=== PATIENT | female | born 1940 | race Caucasian/White ===

== ENCOUNTER → 2022-06-05 | Outpatient (CLI) | payer MEDICARE, SELFPAY ==
--- NOTE | 2022-06-05 16:28 | MRI_ITS ---
STUDY: MRI ORBITS WITH AND WITHOUT CONTRAST REASON FOR EXAM: Female, 82 years old patient with LEFT-sided optic atrophy. History of kidney cancer. TECHNIQUE: Standardized fat and water weighted pulse sequences were obtained in all 3 orthogonal planes, pre-and post contrast administration. 10 ml of IV Clariscan was administered for the contrast portion of the examination. COMPARISON: None. FINDINGS: Patient has bilateral ocular lenticular implants. Globes otherwise have a normal appearance. Normal bilateral optic nerve sheath complexes and optic nerves. Normal bilateral intraconal and extraconal spaces. Normal bilateral extraocular muscles. Normal optic chiasm and post-chiasmatic tracts. Normal sella turcica, pituitary gland, infundibular stalk, and hypothalamus. Normal bilateral cavernous sinuses. Normal tectal plate and pineal gland. Normal flow voids within the major intracranial circulation suggesting patency by spin echo criteria. Normal size of the ventricles and extra-axial spaces for the patient''s age. There are multiple foci of abnormal T2 hyperintensity throughout the deep and subcortical white matter. There is also confluent abnormal T2 hyperintensity within periventricular white matter. There are small areas of encephalomalacia within the basal ganglia are probably secondary to old infarcts. Normal thalami. There is no extra-axial fluid accumulation. There is abnormal T2 hyperintensity within the angus probably secondary to microvascular disease. Normal cerebellum. Normal basal cisterns. There is no restricted diffusion. There is mild mucosal thickening within the paranasal sinuses. MRI/Orbit Face Neck W/WO Contrast IMPRESSION: 1. Moderately severe abnormal signal throughout the white matter may be secondary to advanced microvascular disease or sequela of demyelination. 2. Generally normal MR appearance of the orbits. 3. No MR evidence for acute infarct. Electronically Signed: Lorin Cornelius MD at 6:10 EST ,
[2022-06-05 17:01] LABS: CREATININE FINGERSTICK < 0.9 mg/dL (0.55-1.02); EGFR FINGERSTICK > 60.0000 mL/min (>60)
== END | disposition home or self-care (01) ==
PROVIDERS: Visit Provider Ophthalmology
DX: H47.212 Primary optic atrophy, left eye (principal); Z85.528 Personal history of other malignant neoplasm of kidney
CPT/HCPCS: 70543; A9575

== ENCOUNTER 2022-12-26 23:48 | Emergency (ER) | payer MEDICARE, SELFPAY ==
[2022-12-26 23:51] VITALS: BP 152/72; PULSE 78; RESP 16; TEMP 36.1; O2SAT 100; BMI 34.4
--- NOTE | 2022-12-27 00:11 | CT_ITS ---
EXAM: CT Abdomen And Pelvis W/O Contrast Injection HISTORY: Pain LEFT FLANK PAIN TONIGHT, HX RIGHT NEPHRECTOMY DUE TO CA A FEW YEARS AGO TECHNIQUE: Routine protocol CT abdomen and pelvis. IV Contrast: None.. Oral contrast: None. RADIATION DOSAGE (If Supplied By Facility): CTDIvol = ( 9.73 ) mGy, DLP = ( 464.16 ) mGycm Individualized dose optimization techniques were used for this CT. COMPARISON: None. LIMITATIONS: None. FINDINGS: LOWER CHEST: Included lung bases are clear. Calcified granuloma right normal. Coronary artery calcifications. LIVER: Grossly unremarkable. GALLBLADDER AND BILIARY TREE: Gallstones in the gallbladder. PANCREAS: Grossly unremarkable. SPLEEN: Grossly unremarkable. ADRENAL GLANDS: Grossly unremarkable. KIDNEYS AND URETERS: Right kidney is surgically absent. No calculi demonstrated. No hydronephrosis. A few small probable parapelvic cysts left kidney. PERITONEUM: No free air. No free fluid. BOWEL: Diverticula throughout the colon. Duodenal diverticulum. No associated inflammatory changes. No bowel obstruction. APPENDIX: Visualized and unremarkable. No evidence of acute appendicitis. VESSELS: Abdominal aorta is normal caliber. REPRODUCTIVE ORGANS: Uterus not identified. There is a 4.0 x 3.7 cm cystic structure in the left adnexa, and a 3.8 x 3.7 cm cystic structure in the right adnexa, likely related to the ovaries. URINARY BLADDER: Minimally distended. ABDOMINAL WALL: Unremarkable. BONES: No acute abnormalities. CT/Abdomen/Pelvis without Cont IMPRESSION: No acute findings. Right nephrectomy. Left kidney with a few probable parapelvic cysts. Given the history of prior right renal malignancy and no prior studies consider follow-up imaging with MRI for further characterization. Cholelithiasis. Colonic diverticulosis without evidence of acute diverticulitis. Bilateral ovarian cystic structures, approximately 4 cm. Follow-up pelvic ultrasound as clinically indicated. Electronically Signed: Judy Mcginnis MD at 1:20 EDT ,
--- NOTE | 2022-12-27 00:13 | ED.VIS.GI ---
HPI HPI - GI History of Present Illness Chief Complaint: Nausea/Vomiting/Diarrhea Detail of Chief Complaint: Left flank pain. Informant: patient Abdominal Pain/Flank Pain Onset: Days Context: Gradual Onset Timing: Continuous Location: Left Flank Current Severity: Mild Maximum Severity: Moderate Worsened by: Nothing Relieved by: Nothing Nausea/Vomiting/Emesis GI Symptom: Positive for Nausea and Vomiting Onset: Days Severity: Mild Associated Symptoms Associated Symptoms: Positive for Frequency; Negative for Dysuria or Hematuria Narrative Narrative: 82-year-old female complaining of left flank pain started around Saturday. She thought it was secondary to muscle spasm which she has had in the past. She has been using a muscle relaxant any relief. Says she is having urinary frequency but no gross hematuria or dysuria. She has developed nausea and vomiting without fever. She has had a kidney stone in the past. Also the patient has had prior right renal cancer and has had her right kidney removed and a prior hysterectomy. She still has her left kidney. Prior similar symptoms: Yes Recent Illness/Hospitalization: No PFSH PFSH Medical History Cancer of kidney Hyperlipemia Hypertension Home Medications chlorzoxazone 500 mg tablet 500 mg PO TID 12/26/22 [History Last Taken Unknown] metaxalone 800 mg tablet 800 mg PO TID PRN muscle pain 7 days #20 tabs 12/27/22 [Rx Last Taken Unknown] metoprolol succinate 25 mg tablet,extended release 24 hr 25 mg PO DAILY 12/27/22 [History Last Taken Unknown] montelukast 10 mg tablet 10 mg PO QHS 12/27/22 [History Last Taken Unknown] paroxetine HCl 40 mg tablet 40 mg PO DAILY 12/27/22 [History Last Taken Unknown] pravastatin 40 mg tablet 40 mg PO DAILY 12/27/22 [History Last Taken Unknown] Allergy/AdvReac Type Severity Reaction Status Date / Time Latex, Natural Rubber Allergy Intermediate Rash Verified 12/26/22 23:54 Surgical History H/O right nephrectomy H/O: hysterectomy Social History Smoking Status: Never smoker ROS ROS ED ROS Narrative Left flank pain. Nausea. Review of Systems ROS Unobtainable: Denies due to encephalopathy Constitutional Constitutional ED: Denies chills or fever(s) ENT ENT ED: Denies ear pain Cardiovascular Cardiovascular: Denies chest pain Respiratory/Chest Respiratory/Chest: Denies cough or dyspnea Gastrointestinal Gastrointestinal: Reports abdominal pain, nausea and vomiting Genitourinary Genitourinary ED: Denies dysuria or hematuria Musculoskeletal Musculoskeletal: Reports back pain; Denies arthralgias Integumentary Denies abscess or Abrasions Neurologic Neurologic: Denies headache(s) Psychiatric Psychiatric: Denies anxiety or depression Endocrine Endocrinology: Denies polydipsia Hematologic/Lymphatic Hematologic/Lymphatic: Denies easy bleeding or easy bruising Allergic/Immunologic Allergic/Immunologic ED: Denies mouth swelling or tongue swelling EXAM Physical Exam Narrative Exam Narrative: Well-appearing 82-year-old female. Vital signs stable afebrile. H EENT exam unremarkable other than mildly dry mucous membranes. Neck nontender no lymphadenopathy. Lungs clear to auscultation bilaterally. Heart regular rhythm rate about 80 no murmur. Chest wall and ribs nontender. Abdomen soft nontender. Nondistended normal bowel sounds no peritoneal signs. Back mild left CVA and paraspinal soft tissue tenderness. No signs of trauma. Spine nontender. Moving all 4 extremities. Neurovascular intact. Normal strength and sensation. No motor loss. No weakness. She is awake and alert. Const Vital Signs: 12/26/22 23:51 Temperature 96.9 F L Temperature Source Temporal Pulse Rate 78 Respiratory Rate 16 Blood Pressure 152/72 H Blood Pressure Mean 98 Pulse Ox 100 Oxygen Delivery Method Room Air Positive well nourished and well developed; Negative for cachectic, contractures or unkempt General Appearance ED: well developed and NAD; Negative for unkempt, cachectic, contractures or pallor Nutritional Appearance: Negative for cachectic HEENT Reports dry mucous membranes; Denies moist mucous membranes normocephalic and atraumatic; Negative for trauma or tenderness Mouth ED: Yes dry mucous membranes Mouth: dry mucous membranes Eyes PERRL and EOMs intact bilaterally General Eye ED: Negative for pale conjunctiva or scleral icterus Neck no lymphadenopathy, supple and no JVD General: Negative for tenderness Carotids: Negative for other Resp normal respiratory effort and clear to auscultation bilaterally Effort and Inspection: Negative for respiratory distress Auscultation: Negative for rales, rhonchi or wheezes Cardio regular rate, regular rhythm, S1 normal heart sound, S2 normal heart sound and no murmurs Rate: Negative for bradycardia or tachycardic Rhythm: Negative for abnormal rhythm GI non-tender and non-distended Inspection: Negative for abdominal distention Auscultation: normoactive bowel sounds Palpation: soft; Negative for tender or guarding Back/Spine Negative for no CVA tenderness Back/Spine Narrative: Left flank tenderness. Left paraspinal muscle tenderness. General Back: Negative for CVA tenderness Cervical Spine: Negative for cervical spine tenderness Thoracic Spine / Upper Back: Negative for thoracic spinal tenderness Lumbar Spine / Lower Back: Negative for lumbar spinal tenderness Coccyx: Negative for other Extremity full ROM General Extremety ED: Negative for edema or tenderness General Extremity: Negative for edema Neuro CN's II-XII intact bilaterally and moves all extremities Sensorium / Orientation: alert, oriented to person, oriented to place and oriented to time; Negative for orientation impaired, confused, lethargic or stuporous Psych mental status grossly normal and thought process normal Appearance: Negative for unkempt or other Attitude: No agitated Mood & Affect: Negative for depressed, anxious or tearful Skin no wounds General Skin Exam: Negative for jaundice or pallor Lesions: no lesions Rashes: no rashes Trauma: Negative for abrasion Nails: Negative for discolored MDM MDM MDM Narrative Medical decision making narrative: 82-year-old female with left flank pain for several days could be muscle spasms versus kidney stone or urinary tract infection versus other etiologies. CAT scan along with screening labs to be obtained. Treated with IV morphine and Zofran. IV fluids for what appears to be mild dehydration. Repeat exam at 1:45 AM patient is doing better. She received morphine and Zofran. We discussed her test results Labs and urine were unremarkable. CAT scan showed most likely renal and pelvic cysts which I discussed with her follow-up due to her history of right renal cancer. The pain is definitely reproducible on the left paraspinal musculature. She has had a history of muscle spasms. Discussed all test results with the patient and her brother is in the room. She will be referred to a local primary care physician because she does not have a local physician she recently moved from [facility]. She will be discharged to home with a prescription for Skelaxin. Given 1 dose here. She will be given a second dose of morphine prior to discharge. I suspect this is secondary to muscle spasms in her back. History & Record Review Discussion w/independent historian: Patient and Family Additional record(s) reviewed:: Prior inpatient record, Prior outpatient record, Prior ED visit and Prior labs Lab Data Attestation: I reviewed the patient's lab results. Lab results narrative: CBC unremarkable. White count 6.4. H&H 14.9 and 45. Platelets 237. Electrolytes show a gap of 3. BUN and creatinine at 22 and 0.9. Glucose of 110. Urinalysis shows no nitrates. No white or red cells. 2+ bacteria. CAT scan without contrast shows no acute findings. Suspected left renal cyst and pelvic cysts. Be discussed with the patient for follow-up. Labs: Laboratory Results - last 24 hr 12/27/22 12/27/22 00:28 01:00 WBC 6.4 RBC 4.87 Hgb 14.9 Hct 45.4 MCV 93.2 MCH 30.6 MCHC 32.8 RDW Std Deviation 43.1 RDW Coeff of Valerie 12.5 Plt Count 237 MPV 10.1 Immature Gran % (Auto) 0.200 Neut % (Auto) 61.4 Lymph % (Auto) 24.7 [place] % (Auto) 8.8 Eos % (Auto) 4.7 Baso % (Auto) 0.2 Absolute Neuts (auto) 3.9 Absolute Lymphs (auto) 1.57 Nucleated RBC % 0 Sodium 140 Potassium 3.8 Chloride 109 H Carbon Dioxide 28.0 Anion Gap 3 L BUN 22 H Creatinine 0.96 Estim Creat Clear Calc 43.03 Est GFR (MDRD) Af Amer 72 Est GFR (MDRD) Non-Af 59 L BUN/Creatinine Ratio 22.9 H Glucose 110 H Calcium 9.9 Urine Color Yellow Urine Clarity Clear Urine pH 6.0 Ur Specific [place] 1.020 Urine Protein Negative Urine Glucose (UA) Normal Urine Ketones 5 H Urine Occult Blood 25 H Urine Nitrite Negative Urine Bilirubin 1 H Urine Urobilinogen 1 H Ur Leukocyte Esterase 500 H Urine RBC 0-5 SEEN Urine WBC 0-5 SEEN Ur Squamous Epith Cells 0-5 SEEN Urine Bacteria 2+ Urine Mucus 0 SEEN Radiography Diagnostic Testing: Clinical Impression(s) from Imaging Studies Abdomen/Pelvis CT 12/27/22 00:11 IMPRESSION: No acute findings. Right nephrectomy. Left kidney with a few probable parapelvic cysts. Given the history of prior right renal malignancy and no prior studies consider follow-up imaging with MRI for further characterization. Cholelithiasis. Colonic diverticulosis without evidence of acute diverticulitis. Bilateral ovarian cystic structures, approximately 4 cm. Follow-up pelvic ultrasound as clinically indicated. Electronically Signed: Judy Mcginnis MD at 1:20 EDT , Discharge Plan Triage Chief Complaint: Nausea/Vomiting/Diarrhea ED Provider: Eligio Robledo Dx/Rx/DC Orders Clinical Impression: Acute left flank pain, History of primary malignant neoplasm of right kidney, Back muscle spasm Instructions: ED Back Spasm, No Trauma Prescriptions: New metaxalone 800 mg tablet 800 mg PO TID PRN (Reason: muscle pain) 7 Days Qty: 20 0RF No Action chlorzoxazone 500 mg tablet 500 mg PO TID Patient Comments: TAKE 1 TABLET (500 MG) BY MOUTH 3 TIMES A DAY NEEDED FOR MUSCLE SPASMS metoprolol succinate 25 mg tablet extended release 24 hr 25 mg PO DAILY paroxetine HCl 40 mg tablet 40 mg PO DAILY montelukast 10 mg tablet 10 mg PO QHS pravastatin 40 mg tablet 40 mg PO DAILY Primary Care Provider: Care Physician,No Primary Referrals: Subhash Phan MD [Med Staff - Rug Inspector] - As soon as possible Care Physician,No Primary [Primary Care Provider] - Activity Restrictions/Additional Instructions: Motrin and Tylenol for pain. Hot shower, warm bath and massage to loosen up the muscles in your back. I think this is secondary to muscle spasms in your back. Skelaxin which is a muscle relaxant 1 pill 3 times a day for the next 7 days as needed. It will take several days to start showing a significant difference. Follow-up with a local primary care physician. Disposition Disposition: Home, Self Care
[2022-12-27] MEDS: Ondansetron 4 MG/2 ML Vial IV (00:19)
[2022-12-27] MEDS: 0.9% Normal Saline (1000mL) 1,000 ML 1000 ML IV (00:19)
[2022-12-27] MEDS: Morphine 4 MG/ML Syringe IV (00:20)
[2022-12-27 00:31] LABS: Absolute Lymphocyte Count 1.57 X10^3/uL (0.83-4.51); Absolute Neutrophil Count 3.9 X10^3/uL (2.0-7.7); Basophil# 0.01 X10^3/uL; Basophil% 0.2 % (0-1); Eosinophils% 4.7 % (0-5); Hematocrit 45.4 % (37-47); Hemoglobin 14.9 g/dL (12.0-15.0); Lymphocyte # 1.57 X10^3/ul (0.83-4.51); Lymphocyte % 24.7 % (19-41); Mean Corp Hgb Conc 32.8 g/dL (32-36); Mean Corpuscular Hgb 30.6 pg (27.0-32.0); Mean Corpuscular Volume 93.2 fL (81-99); Mean Platelet Vol. 10.1 fl (6.2-12.0); Monocyte# 0.56 X10^3/uL; Monocyte% 8.8 % (0-10); NRBC Flagged by Analyzer 0 % (0-5); Neutrophil # 3.91 X10^3/uL (2.7-7.7); Neutrophil % 61.4 % (47-70); Platelet Count 237 K/mm3 (150-450); RBC Distribution Width CV 12.5 % (11.6-14.6); RBC Distribution Width SD 43.1 fl (35.1-43.9); Red Blood Count 4.87 M/mm3 (4.2-5.4); White Blood Count 6.4 K/mm3 (4.4-11.0)
[2022-12-27 00:44] LABS: Anion Gap 3 (5-15); BUN 22 mg/dL (7-18); BUN/Creat Ratio 22.9 RATIO (10-20); Calcium,Total 9.9 mg/dL (8.5-10.1); Chloride 109 mmol/L (98-107); Creatinine, Serum 0.96 mg/dL (0.55-1.02); EST Glomerular Filtration Rate 59 mL/min (>60); Est Glom Filt Rate - Afr Amer 72 mL/min (>60); Estimated Creatinine Clearance 43.03 ml/min; Glucose 110 mg/dL (74-106); Potassium 3.8 mmol/L (3.5-5.1); Sodium Level 140 mmol/L (136-145)
[2022-12-27 01:05] LABS: Mucous, Urine 0 SEEN /hpf (<or=2+)
[2022-12-27 01:06] LABS: Color, Urine Yellow (Yellow); Glucose, Dipstick Normal (Normal); Ketone-Dipstick 5 mg/dl (Negative); Leukocyte Esterase-Dipstick 500 /ul (Negative); Nitrite-Dipstick Negative (Negative); Occult Blood-Urine 25 /ul (Negative); Protein-Dipstick Negative (Negative); Urine Bilirubin Dipstick 1 mg/dL (Negative); Urine Clarity Clear (Clear); Urine Urobilinogen 1 mg/dl (Normal)
[2022-12-27 01:11] LABS: Bacteria 2+ /hpf (None Seen); Red Blood Cells-Urine 0-5 SEEN /hpf (0-5); Squamous Epithelial Cells - UA 0-5 SEEN /hpf (5-10); White Blood Cells 0-5 SEEN /hpf (0-5)
[2022-12-27] MEDS: Acetaminophen 500 MG Tablet 1000 MG PO (01:23)
[2022-12-27] MEDS: Metaxalone 800 MG Tablet PO (02:14)
== END 2022-12-27 02:18 | disposition home or self-care (01) ==
PROVIDERS: Emergency Provider Emergency Medicine; Visit Provider Emergency Medicine
DX: R10.9 Unspecified abdominal pain (principal); M62.830 Muscle spasm of back; E78.5 Hyperlipidemia, unspecified; I10 Essential (primary) hypertension; Z79.899 Other long term (current) drug therapy
CPT/HCPCS: 74176; 80048; 81001; 85025; 96361; 96374; 96375; 99284; J7030; A4216; J2405

== ENCOUNTER 2023-02-09 04:20 | Emergency (ER) | payer MEDICARE, SELFPAY ==
[2023-02-09 04:21] VITALS: BP 105/80; PULSE 95; RESP 16; TEMP 36.6; O2SAT 98; BMI 31.8
--- NOTE | 2023-02-09 04:37 | CT_ITS ---
EXAM: CT ABDOMEN AND PELVIS WITHOUT INTRAVENOUS CONTRAST CLINICAL INDICATION: back pain TECHNIQUE: Helically acquired images were obtained of the abdomen and pelvis without intravenous contrast. This CT exam was performed using one or more of the following dose reduction techniques: automated exposure control, adjustment of the mA and/or kV according to patient size, and/or use of iterative reconstruction technique. RADIATION DOSE: CTDIvol = 7.68 mGy, DLP = 362.83 mGy-cm COMPARISON: 12/27/2022. FINDINGS: LOWER THORAX: Coronary artery calcifications. Lung bases are clear. No cardiomegaly. No significant pericardial effusion. ABDOMEN: LIVER: Unremarkable. Homogeneous. GALLBLADDER AND BILE DUCTS: Cholelithiasis. No gallbladder distention or wall edema. No intra- or extrahepatic biliary ductal dilation. PANCREAS: Unremarkable. No focal cystic mass. SPLEEN: Unremarkable. Normal size without focal cystic or solid mass. ADRENALS: Unremarkable. No nodules. KIDNEYS AND URETERS: Right kidney is absent. Multiple parapelvic cysts left kidney. No hydronephrosis. STOMACH AND BOWEL: Scattered diverticula without diverticulitis. No stomach or bowel distention. PELVIS: APPENDIX: Normal appendix. BLADDER: Unremarkable. REPRODUCTIVE: Hysterectomy. Simple appearing cyst measuring 3.9 cm right adnexa unchanged since previous exam. Simple appearing cyst measuring 3.9 cm left adnexa unchanged since previous exam. ABDOMEN and PELVIS: INTRAPERITONEAL SPACE: Unremarkable. No ascites or other fluid collection. No free air. BONES/JOINTS: Unremarkable. No suspicious lytic or blastic abnormality. SOFT TISSUES: Unremarkable. No discrete abdominal or pelvic wall hernia. VASCULATURE: See above. LYMPH NODES: Unremarkable. No enlarged lymph nodes. CT/Abdomen/Pelvis without Cont IMPRESSION: 1. Coronary artery disease. 2. Cholelithiasis. 3. Hysterectomy. 4. Bilateral simple appearing cysts each measuring 3.9 cm unchanged as previous exam. No follow-up imaging necessary. 5. Scattered diverticula without diverticulitis. 6. No acute abdominal pelvic abnormality. 7. Multiple parapelvic cysts left kidney. No follow-up imaging necessary. Electronically Signed: Brayan Graves MD at 5:29 EDT ,
--- NOTE | 2023-02-09 04:39 | ED.VIS.BACK ---
HPI History of Present Illness Chief Complaint: Back Informant: patient Narrative Narrative: Patient presents with back pain for the past 2 days. She states it started gradually. She states she was decluttering her house, but she was not doing any heavy lifting but now she cannot lift because it hurts worse, as it does not move. She states that a week ago she was having some discomfort that got better but this will not get better with the same medications that she was taking which include CBD Gummies and muscle relaxers. A month ago she was here because of pain more on the left side. This is in the middle, and a little higher. She states she had an injury at work in 2007 where she fell over a conveyor belt and injured her back and had some chronic issues from it, but she states that this is unusual because it will not get better no matter what she does and she cannot sleep, she is urinating more frequently but without dysuria, denies any abdominal pain, other GI symptoms, and denies any chest discomfort or shortness of breath or other symptoms. No pain radiating elsewhere including the legs or perineum. No numbness or weakness. No other systemic symptoms. History is limited because the patient is sort of hysterical, has a flight of ideas and has to be redirected by the examiner multiple times and asked to repeat her statements because she is talking very fast. [facility] Medical History Cancer of kidney Hyperlipemia Hypertension Home Medications chlorzoxazone 500 mg tablet 500 mg PO TID 12/26/22 [History Last Taken Unknown] metoprolol succinate 25 mg tablet,extended release 24 hr 25 mg PO DAILY 12/27/22 [History Last Taken Unknown] montelukast 10 mg tablet 10 mg PO QHS 12/27/22 [History Last Taken Unknown] paroxetine HCl 40 mg tablet 40 mg PO DAILY 12/27/22 [History Last Taken Unknown] pravastatin 40 mg tablet 40 mg PO DAILY 12/27/22 [History Last Taken Unknown] tizanidine 2 mg tablet 2 mg PO Q8H PRN muscle spasticity #20 tabs 12/27/22 [Rx Last Taken Unknown] oxycodone-acetaminophen 5 mg-325 mg tablet 1 tab PO Q6H PRN PRN Pain 3 days #12 TABLETS 02/09/23 [Rx Last Taken Unknown] Allergy/AdvReac Type Severity Reaction Status Date / Time Latex, Natural Rubber Allergy Intermediate Rash Verified 02/09/23 04:21 Surgical History H/O right nephrectomy H/O: hysterectomy Social History Smoking Status: Never smoker ROS ROS ED Constitutional Constitutional ED: Denies chills or fever(s) Eyes Eyes: Denies change in vision or diplopia ENT ENT ED: Denies rhinorrhea or sore throat Cardiovascular Cardiovascular: Denies chest pain or palpitations Respiratory/Chest Respiratory/Chest: Denies cough or dyspnea Gastrointestinal Gastrointestinal: Denies abdominal pain, diarrhea, nausea or vomiting Genitourinary Genitourinary ED: Denies dysuria or hematuria Musculoskeletal Musculoskeletal: Reports back pain; Denies neck pain Integumentary Denies abscess or rash Neurologic Neurologic: Denies headache(s), paresthesias or weakness Psychiatric Psychiatric: Reports anxiety; Denies suicidal thoughts EXAM Physical Exam Const Vital Signs: 02/09/23 04:21 Temperature 97.9 F Temperature Source Temporal Pulse Rate 95 Respiratory Rate 16 Blood Pressure 105/80 Blood Pressure Mean 88 Pulse Ox 98 Oxygen Delivery Method Room Air Positive well nourished and well developed General Appearance ED: well developed and NAD HEENT Reports moist mucous membranes normocephalic and atraumatic Eyes PERRL and EOMs intact bilaterally Neck full ROM and supple Resp normal respiratory effort and clear to auscultation bilaterally Cardio regular rate, regular rhythm and no murmurs GI non-tender and non-distended GI Narrative: No [place] sign. No [place] sign. Auscultation: normoactive bowel sounds Palpation: soft; Negative for pulsatile mass Back/Spine no CVA tenderness and normal to inspection General Back: other FROM Lumbar Spine / Lower Back: paraspinal muscle tenderness bilateral (Upper lumbar/lower thoracic paraspinal musculature and midline, normal on inspection) and straight leg raise negative bilaterally Extremity normal to inspection General Extremety ED: Negative for edema, pulses abnormal or tenderness General Extremity: Negative for edema or pulses abnormal Neuro oriented x3, CN's II-XII intact bilaterally, no sensory deficits noted and gait normal Sensorium / Orientation: awake and alert Motor Exam: strength 5/5 throughout Deep Tendon Reflexes: Rt Patellar (L4): 2+, Lt Patellar (L4): 2+, Rt Ankle (S1): 2+ and Lt Ankle (S1): 2+ Deep Tendon Reflexes Back: Rt Patellar (L4): 2+, Lt Patellar (L4): 2+, Rt Ankle (S1): 2+ and Lt Ankle (S1): 2+ Plantar Reflex: Downgoing: bilateral Psych Psych Narrative: Anxious. Pressured speech. Skin no rashes or lesions noted and no wounds MDM MDM MDM Narrative Medical decision making narrative: I reviewed the patient's prior ED visit a month ago, she had a CT scan that showed some incidental findings but no obvious reason for her pain. I discussed that with her, but she states this is different, and given her age and history of kidney cancer in the past, and some abnormal findings on her left kidney which is the only one she has left, in addition to the differential which includes AAA, musculoskeletal etiologies which were thought to be more likely here given the history, compression fracture, recurrent cancer with metastases to bone, left kidney, or elsewhere, I thought it prudent to repeat her CT which she was amenable to in addition to labs, urinalysis given the possibility of a urine infection, and analgesics. All of this was normal. I reviewed the CT images as well as the report which I agree with. She does incidentally have gallstones. The abnormalities in her left kidney were doubled cysts and no follow-up needed. I reexamined her, she truly does not have right upper quadrant pain or tenderness, and the pain is on her back. She is very anxious and she says that her doctor prescribed her nerve pill because she is very high strung and anxious and she understands that. She does feel little better after the discomfort she seen walking to and from the bathroom without any difficulty, and the work-up here essentially rules out any dangerous etiologies. I assume this is musculoskeletal given the history and previous activity, does not appear to have a urinary infection acutely and I will prescribe her something for pain to use in the short-term and follow-up advised. She is comfortable with that plan. Lab Data Attestation: I reviewed the patient's lab results. Labs: Laboratory Results - last 24 hr 02/09/23 02/09/23 04:50 05:42 WBC 7.0 RBC 5.00 Hgb 15.3 H Hct 46.2 MCV 92.4 MCH 30.6 MCHC 33.1 RDW Std Deviation 42.7 RDW Coeff of Valerie 12.6 Plt Count 221 MPV 10.1 Immature Gran % (Auto) 0.300 Neut % (Auto) 59.7 Lymph % (Auto) 26.2 [place] % (Auto) 8.4 Eos % (Auto) 5.0 Baso % (Auto) 0.4 Absolute Neuts (auto) 4.2 Absolute Lymphs (auto) 1.84 Nucleated RBC % 0 Sodium 138 Potassium 3.8 Chloride 107 Carbon Dioxide 29.0 Anion Gap 2 L BUN 20 H Creatinine 0.97 Estim Creat Clear Calc 41.86 Est GFR (MDRD) Af Amer 71 Est GFR (MDRD) Non-Af 59 L BUN/Creatinine Ratio 20.7 H Glucose 105 Calcium 9.4 Total Bilirubin 0.40 AST 10 L ALT 22 Alkaline Phosphatase 95 Total Protein 7.1 Albumin 3.7 Globulin 3.4 Albumin/Globulin Ratio 1.1 Lipase 25 Urine Color Yellow Urine Clarity Clear Urine pH 6.0 Ur Specific [place] 1.025 Urine Protein 15 H Urine Glucose (UA) Normal Urine Ketones Negative Urine Occult Blood 10 H Urine Nitrite Negative Urine Bilirubin Negative Urine Urobilinogen 1 H Ur Leukocyte Esterase 100 H Urine RBC 0 SEEN Urine WBC 0-5 SEEN Ur Squamous Epith Cells 0-5 SEEN Urine Bacteria 0 SEEN Urine Mucus 0 SEEN Radiography Diagnostic Testing: Clinical Impression(s) from Imaging Studies Abdomen/Pelvis CT 02/09/23 04:37 IMPRESSION: 1. Coronary artery disease. 2. Cholelithiasis. 3. Hysterectomy. 4. Bilateral simple appearing cysts each measuring 3.9 cm unchanged as previous exam. No follow-up imaging necessary. 5. Scattered diverticula without diverticulitis. 6. No acute abdominal pelvic abnormality. 7. Multiple parapelvic cysts left kidney. No follow-up imaging necessary. Electronically Signed: Brayan Graves MD at 5:29 EDT , Discharge Plan Triage Chief Complaint: Back ED Provider: Mark Hodge Dx/Rx/DC Orders Clinical Impression: Acute lumbar myofascial strain Instructions: Understanding Lumbosacral Strain Prescriptions: New oxycodone-acetaminophen [oxycodone-acetaminophen] 5-325 mg tablet 1 tab PO Q6H PRN PRN (Reason: Pain) 3 Days Qty: 12 0RF No Action chlorzoxazone 500 mg tablet 500 mg PO TID Patient Comments: TAKE 1 TABLET (500 MG) BY MOUTH 3 TIMES A DAY NEEDED FOR MUSCLE SPASMS metoprolol succinate 25 mg tablet extended release 24 hr 25 mg PO DAILY paroxetine HCl 40 mg tablet 40 mg PO DAILY montelukast 10 mg tablet 10 mg PO QHS pravastatin 40 mg tablet 40 mg PO DAILY tizanidine 2 mg tablet 2 mg PO Q8H PRN (Reason: muscle spasticity) Qty: 20 0RF Primary Care Provider: Care Physician,No Primary Referrals: Doctor,Your [Non-Staff] - 3-5 Days if not improving Disposition Disposition: Home, Self Care
[2023-02-09] MEDS: 0.9% Normal Saline (1000mL) 1,000 ML 125 ML IV (04:50)
[2023-02-09] MEDS: Ondansetron 4 MG/2 ML Vial IV (04:50)
[2023-02-09] MEDS: Morphine 2 MG/ML Syringe IV (04:50)
[2023-02-09 04:55] LABS: Absolute Lymphocyte Count 1.84 X10^3/uL (0.83-4.51); Absolute Neutrophil Count 4.2 X10^3/uL (2.0-7.7); Basophil# 0.03 X10^3/uL; Basophil% 0.4 % (0-1); Eosinophil# 0.35 X10^3/uL; Hematocrit 46.2 % (37-47); Hemoglobin 15.3 g/dL (12.0-15.0); Lymphocyte # 1.84 X10^3/ul (0.83-4.51); Lymphocyte % 26.2 % (19-41); Mean Corp Hgb Conc 33.1 g/dL (32-36); Mean Corpuscular Hgb 30.6 pg (27.0-32.0); Mean Corpuscular Volume 92.4 fL (81-99); Mean Platelet Vol. 10.1 fl (6.2-12.0); Monocyte# 0.59 X10^3/uL; Monocyte% 8.4 % (0-10); NRBC Flagged by Analyzer 0 % (0-5); Neutrophil # 4.18 X10^3/uL (2.7-7.7); Neutrophil % 59.7 % (47-70); Platelet Count 221 K/mm3 (150-450); RBC Distribution Width CV 12.6 % (11.6-14.6); RBC Distribution Width SD 42.7 fl (35.1-43.9)
[2023-02-09 05:13] LABS: ALB/GLOB Ratio 1.1 RATIO (0.9-2.4); AST(SGOT) 10 U/L (15-37); Alanine Aminotransfer ALT/SGPT 22 U/L (13-56); Albumin, Serum 3.7 g/dL (3.2-5.0); Alkaline Phosphatase 95 U/L (45-117); Anion Gap 2 (5-15); BUN 20 mg/dL (7-18); BUN/Creat Ratio 20.7 RATIO (10-20); Calcium,Total 9.4 mg/dL (8.5-10.1); Chloride 107 mmol/L (98-107); Creatinine, Serum 0.97 mg/dL (0.55-1.02); EST Glomerular Filtration Rate 59 mL/min (>60); Est Glom Filt Rate - Afr Amer 71 mL/min (>60); Estimated Creatinine Clearance 41.86 ml/min; Globulin 3.4 g/dL (2.2-4.2); Glucose 105 mg/dL (74-106); Lipase 25 U/L (13-75); Potassium 3.8 mmol/L (3.5-5.1); Protein, Total 7.1 g/dL (6.4-8.2); Sodium Level 138 mmol/L (136-145)
[2023-02-09 05:47] LABS: Bacteria 0 SEEN /hpf (None Seen); Mucous, Urine 0 SEEN /hpf (<or=2+); Red Blood Cells-Urine 0 SEEN /hpf (0-5)
[2023-02-09 05:54] LABS: Color, Urine Yellow (Yellow); Glucose, Dipstick Normal (Normal); Ketone-Dipstick Negative (Negative); Leukocyte Esterase-Dipstick 100 /ul (Negative); Nitrite-Dipstick Negative (Negative); Occult Blood-Urine 10 /ul (Negative); Protein-Dipstick 15 mg/dl (Negative); Specific Gravity, Urine 1.025 (1.002-1.030); Urine Bilirubin Dipstick Negative (Negative); Urine Clarity Clear (Clear); Urine Urobilinogen 1 mg/dl (Normal)
[2023-02-09 06:01] LABS: Squamous Epithelial Cells - UA 0-5 SEEN /hpf (5-10); White Blood Cells 0-5 SEEN /hpf (0-5)
[2023-02-09 06:36] VITALS: BP 108/73; PULSE 72; RESP 16; O2SAT 98
== END 2023-02-09 06:54 | disposition home or self-care (01) ==
PROVIDERS: Emergency Provider Emergency Medicine; Visit Provider Emergency Medicine
DX: S39.012A Strain of muscle, fascia and tendon of lower back, initial encounter (principal); X58.XXXA Exposure to other specified factors, initial encounter
CPT/HCPCS: 74176; 80053; 81001; 83690; 85025; 96361; 96374; 96375; 99283; J7030; A4216; J2405

== ENCOUNTER 2023-07-31 19:54 | Emergency (ER) | payer MEDICARE, SELFPAY ==
[2023-07-31 19:55] VITALS: BP 136/88; PULSE 105; RESP 20; TEMP 36.1; O2SAT 96; BMI 26.3
[2023-07-31] MEDS: Ondansetron 4 MG/2 ML Vial IV (21:32)
[2023-07-31] MEDS: Morphine 4 MG/ML Syringe IV (21:32)
[2023-07-31] MEDS: 0.9% Normal Saline (1000mL) 1,000 ML 999 ML IV (21:32)
[2023-07-31 21:40] VITALS: BP 130/86; PULSE 87; RESP 18; TEMP 36.5; O2SAT 96
--- NOTE | 2023-07-31 21:40 | CT_ITS ---
INDICATION: Kidney Stone EXAMINATION: CT ABDOMEN AND PELVIS WITHOUT CONTRAST - CT Abdomen And Pelvis W/O Contrast Injection TECHNIQUE: Helically acquired images were obtained of the abdomen and pelvis without oral or IV contrast. A radiation dose optimization technique was used for this scan. IV Contrast dosage and agent: None. Oral contrast: None. RADIATION DOSAGE (If Supplied By Facility): CTDIvol = ( 11.71 ) mGy, DLP = ( 605.40 ) mGycm COMPARISON: CT Abdomen/PelvisOct 2022 5:00am FINDINGS: LOWER THORAX: Coronary artery calcifications. Lung bases are clear. No cardiomegaly. No significant pericardial effusion. ABDOMEN: LIVER: Unremarkable. Homogeneous. GALLBLADDER AND BILE DUCTS: Cholelithiasis. No gallbladder distention or wall edema. No intra- or extrahepatic biliary ductal dilation. PANCREAS: Unremarkable. No focal cystic mass. SPLEEN: Unremarkable. Normal size without focal cystic or solid mass. ADRENALS: Unremarkable. No nodules. KIDNEYS AND URETERS: Right kidney is absent. Multiple parapelvic cysts left kidney. No hydronephrosis. STOMACH AND BOWEL: Scattered diverticula without diverticulitis. No stomach or bowel distention. PELVIS: APPENDIX: Normal appendix. BLADDER: Unremarkable. REPRODUCTIVE: Hysterectomy. Simple appearing cyst measuring 3.9 cm right adnexa unchanged since previous exam. Simple appearing cyst measuring 3.9 cm left adnexa unchanged since previous exam. ABDOMEN and PELVIS: INTRAPERITONEAL SPACE: Unremarkable. No ascites or other fluid collection. No free air. BONES/JOINTS: Unremarkable. No suspicious lytic or blastic abnormality. SOFT TISSUES: Unremarkable. No discrete abdominal or pelvic wall hernia. VASCULATURE: See above. LYMPH NODES: Unremarkable. No enlarged lymph nodes. CT/Abdomen/Pelvis without Cont IMPRESSION: 1. Multiple parapelvic cysts left kidney. No no hydronephrosis. 2. Cholelithiasis. 3. Scattered diverticula without diverticulitis. 4. Bilateral simple appearing cysts each measuring 3.9 cm unchanged as previous exam. No follow-up imaging necessary. Electronically Signed: Krysta Solo MD at 23:26 EDT ,
[2023-07-31 21:49] LABS: Absolute Lymphocyte Count 1.59 X10^3/uL (0.83-4.51); Absolute Neutrophil Count 3.8 X10^3/uL (2.0-7.7); Basophil# 0.03 X10^3/uL; Basophil% 0.5 % (0-1); Eosinophils% 6.3 % (0-5); Hematocrit 45.8 % (37-47); Hemoglobin 14.8 g/dL (12.0-15.0); Lymphocyte # 1.59 X10^3/ul (0.83-4.51); Mean Corp Hgb Conc 32.3 g/dL (32-36); Mean Corpuscular Volume 92.7 fL (81-99); Mean Platelet Vol. 10.3 fl (6.2-12.0); Monocyte# 0.56 X10^3/uL; Monocyte% 8.8 % (0-10); NRBC Flagged by Analyzer 0 % (0-5); Neutrophil # 3.78 X10^3/uL (2.7-7.7); Neutrophil % 59.2 % (47-70); Platelet Count 225 K/mm3 (150-450); RBC Distribution Width CV 12.8 % (11.6-14.6); RBC Distribution Width SD 43.3 fl (35.1-43.9); Red Blood Count 4.94 M/mm3 (4.2-5.4); White Blood Count 6.4 K/mm3 (4.4-11.0)
[2023-07-31 22:17] LABS: Anion Gap 4 (5-15); BUN 17 mg/dL (7-18); BUN/Creat Ratio 17.9 RATIO (10-20); Calcium,Total 9.6 mg/dL (8.5-10.1); Chloride 107 mmol/L (98-107); Creatinine, Serum 0.95 mg/dL (0.55-1.02); EST Glomerular Filtration Rate 60 mL/min (>60); Est Glom Filt Rate - Afr Amer 72 mL/min (>60); Estimated Creatinine Clearance 46.98 ml/min; Glucose 99 mg/dL (74-106); Potassium 4.1 mmol/L (3.5-5.1); Sodium Level 140 mmol/L (136-145)
--- NOTE | 2023-07-31 22:31 | ED.VIS.GI ---
HPI HPI - GI History of Present Illness Chief Complaint: Back Narrative Narrative: 83-year-old female presenting with right-sided back pain. She states 3 present for 6 days. She says in the past sensitive musculoskeletal but also is concerned because quite well. She states that she went to urgent care and she was given some cream to put on topically but this did not help. She states that Tylenol and ibuprofen do not help. Patient states she only has 1 kidney due to nephrectomy on the right due to renal cell carcinoma. Patient states that she has not had nausea. She denies urinary or vaginal complaints. She denies constipation or diarrhea. No direct trauma to the back. No saddle anesthesia, urinary retention. [facility] Medical History Cancer of kidney Hyperlipemia Hypertension Home Medications metoprolol succinate 25 mg tablet,extended release 24 hr 25 mg PO DAILY 12/27/22 [History Last Taken Unknown] montelukast 10 mg tablet 10 mg PO QHS 12/27/22 [History Last Taken Unknown] pravastatin 40 mg tablet 40 mg PO DAILY 12/27/22 [History Last Taken Unknown] diclofenac sodium 1 % topical gel 2 ea topical 4X/DAY 07/31/23 [History Last Taken Unknown] hydrocodone-acetaminophen 5-325mg 5mg-325mg 1 tab PO Q6H PRN pain 3 days #12 TABLETS 07/31/23 [Rx Last Taken Unknown] Allergy/AdvReac Type Severity Reaction Status Date / Time Latex, Natural Rubber Allergy Intermediate Rash Verified 07/31/23 19:57 Surgical History H/O right nephrectomy H/O: hysterectomy Social History Smoking Status: Never smoker ROS ROS ED Constitutional Constitutional ED: Denies chills, fever(s) or sweats Eyes Eyes: Denies blurry vision or change in vision ENT ENT ED: Denies ear pain or sore throat Cardiovascular Cardiovascular: Denies chest pain, palpitations or racing heartbeat Respiratory/Chest Respiratory/Chest: Denies cough, dyspnea or sputum Gastrointestinal Gastrointestinal: Denies abdominal pain, constipation, diarrhea, nausea or vomiting Genitourinary Genitourinary ED: Denies dysuria, hematuria or urinary frequency Musculoskeletal Musculoskeletal: Reports back pain; Denies arthralgias, myalgias or neck pain Integumentary Denies abscess, Abrasions or rash Neurologic Neurologic: Denies headache(s), paresthesias or weakness Psychiatric Psychiatric: Denies anxiety, depression, suicidal ideation or suicidal thoughts Endocrine Endocrinology: Denies polydipsia or polyuria EXAM Physical Exam Const Vital Signs: 07/31/23 19:55 07/31/23 21:40 Temperature 96.9 F L 97.7 F L Temperature Source Temporal Oral Pulse Rate 105 H 87 Respiratory Rate 20 H 18 Blood Pressure 136/88 H 130/86 H Blood Pressure Mean 104 100 Pulse Ox 96 96 Oxygen Delivery Method Room Air Room Air Positive well nourished General Appearance ED: NAD HEENT Reports moist mucous membranes normocephalic Eyes PERRL and EOMs intact bilaterally Resp normal respiratory effort Auscultation: Negative for rales, rhonchi or wheezes Cardio regular rate and regular rhythm GI non-distended Back/Spine Back/Spine Narrative: Right lower thoracic and upper lumbar paraspinal musculature tenderness. No obvious CVA tenderness. No rashes, ecchymosis. Neuro CN's II-XII intact bilaterally Sensorium / Orientation: alert Psych mental status grossly normal Skin no wounds MDM MDM MDM Narrative Medical decision making narrative: Patient presenting right-sided back pain. She states she has not been getting much relief from the cream that was prescribed to her. Tylenol ibuprofen not helping. Denies any trauma. Differential includes kidney stone, UTI, pyelonephritis, constipation. Patient also has concerns has a history of renal cell cancer. Patient medicated with morphine, Zofran. She is given a liter of normal saline. CBC to assess white blood cell count, hemoglobin, platelets. BMP to assess renal function and electrolytes. Urinalysis to assess for UTI. CT of the abdomen pelvis without contrast will be obtained. CBC and BMP unremarkable. Urinalysis negative for infection. CT of the abdomen pelvis was negative as well although the patient does have some gallstones on exam. She is not tender in her right upper quadrant. I will write for a prescription for [place] for home. She will be discharged to follow-up with her PCP. Return precautions discussed. Impression 1. Back pain Lab Data Labs: Laboratory Results - last 24 hr 07/31/23 07/31/23 21:40 22:40 WBC 6.4 RBC 4.94 Hgb 14.8 Hct 45.8 MCV 92.7 MCH 30.0 MCHC 32.3 RDW Std Deviation 43.3 RDW Coeff of Valerie 12.8 Plt Count 225 MPV 10.3 Immature Gran % (Auto) 0.200 Neut % (Auto) 59.2 Lymph % (Auto) 25.0 [place] % (Auto) 8.8 Eos % (Auto) 6.3 H Baso % (Auto) 0.5 Absolute Neuts (auto) 3.8 Absolute Lymphs (auto) 1.59 Nucleated RBC % 0 Sodium 140 Potassium 4.1 Chloride 107 Carbon Dioxide 29.0 Anion Gap 4 L BUN 17 Creatinine 0.95 Estim Creat Clear Calc 46.98 Est GFR (MDRD) Af Amer 72 Est GFR (MDRD) Non-Af 60 BUN/Creatinine Ratio 17.9 Glucose 99 Calcium 9.6 Urine Color Yellow Urine Clarity Clear Urine pH 5.0 Ur Specific [place] 1.020 Urine Protein Negative Urine Glucose (UA) Normal Urine Ketones Negative Urine Occult Blood 25 H Urine Nitrite Negative Urine Bilirubin Negative Urine Urobilinogen Normal Ur Leukocyte Esterase 25 H Urine RBC 0-5 SEEN Urine WBC 0-5 SEEN Ur Squamous Epith Cells 0-5 SEEN Calcium Oxalate Crystal 1+ Urine Bacteria 0 SEEN Urine Mucus 0 SEEN Radiography Diagnostic Testing: Clinical Impression(s) from Imaging Studies Abdomen/Pelvis CT 07/31/23 21:40 IMPRESSION: 1. Multiple parapelvic cysts left kidney. No no hydronephrosis. 2. Cholelithiasis. 3. Scattered diverticula without diverticulitis. 4. Bilateral simple appearing cysts each measuring 3.9 cm unchanged as previous exam. No follow-up imaging necessary. Electronically Signed: Krysta Solo MD at 23:26 EDT , Discharge Plan Triage Chief Complaint: Back ED Provider: Gary Joyner Dx/Rx/DC Orders Instructions: ED Back Spasm, No Trauma Prescriptions: New hydrocodone-acetaminophen 5-325 mg tablet 1 tab PO Q6H PRN (Reason: pain) 3 Days Qty: 12 0RF No Action metoprolol succinate 25 mg tablet extended release 24 hr 25 mg PO DAILY montelukast 10 mg tablet 10 mg PO QHS pravastatin 40 mg tablet 40 mg PO DAILY diclofenac sodium 1 % gel 2 ea topical 4X/DAY Primary Care Provider: NICOLE NAVAS Referrals: NICOLE NAVAS [Other] Disposition Disposition: Home, Self Care
[2023-07-31 22:49] LABS: Bacteria 0 SEEN /hpf (None Seen); Mucous, Urine 0 SEEN /hpf (<or=2+)
[2023-07-31 22:50] LABS: Color, Urine Yellow (Yellow); Glucose, Dipstick Normal (Normal); Ketone-Dipstick Negative (Negative); Leukocyte Esterase-Dipstick 25 /ul (Negative); Nitrite-Dipstick Negative (Negative); Occult Blood-Urine 25 /ul (Negative); Protein-Dipstick Negative (Negative); Urine Bilirubin Dipstick Negative (Negative); Urine Clarity Clear (Clear); Urine Urobilinogen Normal (Normal)
[2023-07-31 23:30] LABS: Calcium Oxalate Crystals Ur 1+ /hpf (<or=2+); Red Blood Cells-Urine 0-5 SEEN /hpf (0-5); Squamous Epithelial Cells - UA 0-5 SEEN /hpf (5-10); White Blood Cells 0-5 SEEN /hpf (0-5)
[2023-07-31 23:48] VITALS: BP 114/95; PULSE 96; RESP 16; TEMP 36.8; O2SAT 93
== END 2023-07-31 23:49 | disposition home or self-care (01) ==
PROVIDERS: Emergency Provider Student in an Organized Health Care Education/Training Program; Visit Provider Student in an Organized Health Care Education/Training Program
DX: M54.9 Dorsalgia, unspecified (principal); I10 Essential (primary) hypertension; E78.5 Hyperlipidemia, unspecified; Z79.899 Other long term (current) drug therapy
CPT/HCPCS: 74176; 80048; 81001; 85025; 96361; 96374; 96375; 99283; J7030; A4216; J2405

== ENCOUNTER 2023-12-07 12:54 | Emergency (ER) | payer MEDICARE, SELFPAY ==
[2023-12-07 12:55] VITALS: BP 155/74; PULSE 126; RESP 22; TEMP 36.3; O2SAT 93; BMI 26.2
[2023-12-07 13:01] VITALS: BP 142/106; PULSE 116; RESP 20; TEMP 36.9; O2SAT 94
[2023-12-07 13:07] VITALS: O2SAT 96
--- NOTE | 2023-12-07 13:13 | EKG12_ITS ---
Test Reason : TACHY Blood Pressure : / mmHG Vent. Rate : 109 BPM Atrial Rate : 109 BPM P-R Int : 162 ms QRS Dur : 076 ms QT Int : 326 ms P-R-T Axes : 063 042 076 degrees QTc Int : 439 ms Sinus tachycardia Otherwise normal ECG Confirmed by Brayan Bah ([id number]), editorial specialist SILVIA BARAKAT ([id number]) on 12/09/2023 10:30:09 AM Referred By: Confirmed By:Brayan Bah
--- NOTE | 2023-12-07 13:14 | ED.VIS.DYS ---
HPI History of Present Illness Chief Complaint: Cough Onset/Context/Timing Worsened by: Lying flat Relieved by: Nothing Narrative Narrative: 83-year-old female presents from urgent care with cough for a month. She states she is also had a rash on her chest and neck for a month as well. They noticed a high heart rate at urgent care and sent her in for testing. She thinks her left foot may be more swollen than the right as well. She denies any chest pain but states that she has a sometime productive cough and may feel short of breath. She cannot sleep at night. Sometimes is worse when she lays flat. No fevers or chills, no nausea or vomiting. No exacerbating or alleviating factors except for sitting upright and lying flat making it worse. [facility] Medical History Hyperlipemia Hypertension Cancer of kidney Home Medications ?Medication ?Instructions ?Recorded ?Last Taken ?Type metoprolol succinate 25 mg 25 mg PO DAILY 12/27/22 Unknown History tablet,extended release 24 hr montelukast 10 mg tablet 10 mg PO QHS 12/27/22 Unknown History pravastatin 40 mg tablet 40 mg PO DAILY 12/27/22 Unknown History diclofenac sodium 1 % topical gel 2 ea topical 4X/DAY 07/31/23 Unknown History hydrocodone-acetaminophen 5-325mg 1 tab PO Q6H PRN pain 3 days #12 07/31/23 Unknown Rx 5mg-325mg TABLETS hydrocortisone 2.5 % topical cream 1 applic topical BID PRN rash 7 12/07/23 Unknown Rx days #30 grams Allergy/AdvReac Type Severity Reaction Status Date / Time Latex, Natural Rubber Allergy Intermediate Rash Verified 12/07/23 12:55 Family History no significant family his Surgical History H/O: hysterectomy H/O right nephrectomy Social History Smoking Status: Never smoker ROS ROS ED ROS Narrative Constitutional: No fever, no chills. HEENT: No sore throat. No neck pain. No loss of vision. No rhinorrhea. Cardiovascular: No chest pain. No palpitations. No pedal edema. Respiratory: 1 month occasionally productive cough, no shortness of breath. Abdominal: No abdominal pain. No nausea. No vomiting. Genitourinary: No dysuria. No hematuria. Musculoskeletal: No myalgias. No arthralgias. Neurologic: No headaches. No dizziness. No lightheadedness. Skin: Positive itchy, burning rash on neck and chest. No change in color. Psychiatric: No depression. No anxiety. EXAM Physical Exam Narrative Exam Narrative: Afebrile. Vital signs noted. Nontoxic-appearing. HEENT examination reveals PERRL, EOMI. Airway patent. Neck soft and supple without meningismus. Cardiovascular examination reveals a regular tachycardia as high as 126 bpm. Lungs are clear to auscultation bilaterally. Abdomen soft nontender with normoactive bowel sounds. Neurological examination shows her to be awake, alert, nonfocal, nonlateralizing. Skin examination does reveal dermatitis type rash on her neck and on her upper chest. No purulent drainage. No crepitance. There is bilateral pedal edema, I do not feel its asymmetric. Const Vital Signs: 12/07/23 12:55 12/07/23 13:01 12/07/23 13:07 Temperature 97.3 F L 98.5 F Temperature Source Temporal Temporal Pulse Rate 126 H 116 H Respiratory Rate 22 H 20 H Respiratory Effort Short of Breath Respiratory Depth Normal Respiratory Pattern Tachypnea Blood Pressure 155/74 H 142/106 H Blood Pressure Mean 101 118 Pulse Ox 93 94 Oxygen Delivery Method Room Air Room Air Room Air 12/07/23 14:01 12/07/23 15:00 12/07/23 15:00 Temperature 98.5 F 98 F Temperature Source Temporal Temporal Pulse Rate 114 H 95 92 Respiratory Rate 20 H 22 H 20 H Respiratory Effort Respiratory Depth Respiratory Pattern Blood Pressure 142/70 H 125/57 H 125/57 H Blood Pressure Mean 94 79 79 Pulse Ox 95 96 95 Oxygen Delivery Method Room Air Room Air MDM MDM MDM Narrative Medical decision making narrative: Differential diagnosis includes but not limited to pneumonia versus pneumothorax versus pulmonary embolism versus atrial fibrillation with RVR. CHF is also in the differential diagnosis but she does not have a history of this. She also does not have a history of COPD. Chest x-ray 2 views will be obtained. I will also obtain a D-dimer. EKG was obtained and interpreted by myself independently as sinus tachycardia at 109 bpm without ectopy or acute ST changes. No STEMI. I reviewed her laboratory work and she has normal white count 9.1, hemoglobin 15.5, hematocrit 46.1, platelet count normal at 228. CMP is remarkable for a BUN of 19 with a normal creatinine of 1.0, glucose 100 with normal anion gap of 7. LFTs are grossly unremarkable. High-sensitivity troponin is normal at 6. BNP is negative. I do not feel she needs serial enzymes because she had a cough and chest pain essentially for a month. Chest x-ray and 2 views obtained and interpreted by myself independently shows no evidence of pneumothorax or pneumonia. I reviewed the radiology report which confirms my independent interpretation. Her D-dimer is slightly elevated above the cutoff for her age. It is 0.85. Patient had complained to the RN of 10 out of 10 chest pain, but she stated to me that it is coming from her rash. It is both a dull pain, and a burning pain. She is very frustrated and anxious regarding this. She inadvertently pulled out her IV. I did order her pain medication in the form of morphine and ondansetron. Given her elevated D-dimer, CTA will be obtained of the chest to rule out pulmonary embolism. Regarding her reported swollen leg, ultrasound is unavailable at this time on the weekend. She did require an additional dose of morphine. I do feel strongly that there is an anxiety component to her pain. She now has a resultant heart rate in the 90s at 92, and her blood pressure has normalized to 125/57. I reviewed the radiology report of the CTA and while there is no evidence of a pulmonary embolism, there is noted peritracheal mass versus malignant lymph node. She also has a pulmonary nodule. I put in for a fast pass with oncology for close follow-up as I feel this is probably the reason for her slightly elevated D-dimer, and for her cough for the past 1 to 2 months. She seemed very preoccupied with her rash on her neck and stated that urgent care would not write her for a steroid cream although that is what they felt she needed because she needed more tests. As I do not feel she meets any admission criteria, she was told of her CT results and the need for follow-up with oncology for further testing as an outpatient, and I wrote her prescription for hydrocortisone 2.5% steroid cream for her rash. She will follow-up with dermatology as scheduled next month. I feel she can be discharged safely home with follow-up. Return instructions to the emergency department were reviewed. Disposition is discharged home in stable condition. History & Record Review Discussion w/independent historian: Patient Lab Data Attestation: I reviewed the patient's lab results. Labs: Laboratory Results - last 24 hr 12/07/23 13:24 WBC 9.1 RBC 5.07 Hgb 15.5 H Hct 46.1 MCV 90.9 MCH 30.6 MCHC 33.6 RDW Std Deviation 41.8 RDW Coeff of Valerie 12.7 Plt Count 228 MPV 9.9 Immature Gran % (Auto) 0.100 Neut % (Auto) 62.3 Lymph % (Auto) 20.6 Labette % (Auto) 8.2 Eos % (Auto) 8.5 H Baso % (Auto) 0.3 Absolute Neuts (auto) 5.6 Absolute Lymphs (auto) 1.86 Nucleated RBC % 0 D-Dimer Quant (PE/DVT) 0.85 H* Sodium 139 Potassium 3.6 Chloride 107 Carbon Dioxide 25.0 Anion Gap 7 BUN 19 H Creatinine 1.00 Estim Creat Clear Calc 44.58 Est GFR (MDRD) Af Amer 68 Est GFR (MDRD) Non-Af 56 L BUN/Creatinine Ratio 19.0 Glucose 100 Calcium 9.7 Total Bilirubin 0.60 AST 17 ALT 25 Alkaline Phosphatase 102 Troponin I High Sens 6 B-Natriuretic Peptide 17.2 Total Protein 7.4 Albumin 4.0 Globulin 3.4 Albumin/Globulin Ratio 1.2 Radiography Diagnostic Testing: Clinical Impression(s) from Imaging Studies Chest X-Ray 12/07/23 13:29 IMPRESSION: No acute cardiopulmonary process identified. Electronically Signed: Marce Burt MD at 14:35 EDT , Chest CTA 12/07/23 14:20 IMPRESSION: 3 cm right paratracheal mass, concerning for malignancy or metastatic lymphadenopathy. 6 mm left lower lobe pulmonary nodule; recommend follow-up Mild bronchitis. No evidence of acute pulmonary embolism. Electronically Signed: Marce Burt MD at 15:45 EDT , Discharge Plan Triage Chief Complaint: Cough Other Complaint: Shortness of Breath ED Provider: Jose Parmar Dx/Rx/DC Orders Clinical Impression: Elevated d-dimer, Cough, Peritracheal mass, Dermatitis Instructions: ED Atopic Dermatitis (Adult), ED Cough Chronic Uncertain Cause Adult Prescriptions: New hydrocortisone 2.5 % cream 1 applic topical BID PRN (Reason: rash) 7 Days Qty: 30 0RF No Action metoprolol succinate 25 mg tablet extended release 24 hr 25 mg PO DAILY montelukast 10 mg tablet 10 mg PO QHS pravastatin 40 mg tablet 40 mg PO DAILY diclofenac sodium 1 % gel 2 ea topical 4X/DAY hydrocodone-acetaminophen 5-325 mg tablet 1 tab PO Q6H PRN (Reason: pain) 3 Days Qty: 12 0RF Other Ambulatory Orders: Fast Pass: Oncology Referral [facility] (Routine) Facility: [facility] - Location: [facility] Ordered By: Jose Parmar Primary Care Provider: NICOLE NAVAS Referrals: NICOLE NAVAS [Other] Activity Restrictions/Additional Instructions: Use the steroid cream twice a day for up to a week to 10 days on the affected area. Do not use steroid cream on your face or genitals. Follow-up with oncology regarding your CT findings of mass near your trachea. This could be the reason for your cough. Print Language: Montserratian Disposition Disposition: Home, Self Care
--- NOTE | 2023-12-07 13:15 | NURSING ---
NO OLD EKGS
[2023-12-07] MEDS: 0.9% Normal Saline (1000mL) 1,000 ML 1000 ML IV (13:23)
--- NOTE | 2023-12-07 13:29 | RAD_ITS ---
HISTORY: cough. TECHNIQUE: XR Chest 2 Views. COMPARISON: None. FINDINGS: CARDIOMEDIASTINAL BORDERS: Cardiac silhouette within normal limits in size. Calcification of the aortic knob. LUNGS: Radiographically clear. PLEURA: No pleural effusion or pneumothorax seen. OSSEOUS STRUCTURES: Degenerative change. RAD/Chest PA and Lateral IMPRESSION: No acute cardiopulmonary process identified. Electronically Signed: Marce Burt MD at 14:35 EDT ,
[2023-12-07 13:47] LABS: Absolute Lymphocyte Count 1.86 X10^3/uL (0.83-4.51); Absolute Neutrophil Count 5.6 X10^3/uL (2.0-7.7); Basophil# 0.03 X10^3/uL; Basophil% 0.3 % (0-1); Eosinophil# 0.77 X10^3/uL; Eosinophils% 8.5 % (0-5); Hematocrit 46.1 % (37-47); Hemoglobin 15.5 g/dL (12.0-15.0); Lymphocyte # 1.86 X10^3/ul (0.83-4.51); Lymphocyte % 20.6 % (19-41); Mean Corp Hgb Conc 33.6 g/dL (32-36); Mean Corpuscular Hgb 30.6 pg (27.0-32.0); Mean Corpuscular Volume 90.9 fL (81-99); Mean Platelet Vol. 9.9 fl (6.2-12.0); Monocyte# 0.74 X10^3/uL; Monocyte% 8.2 % (0-10); NRBC Flagged by Analyzer 0 % (0-5); Neutrophil # 5.64 X10^3/uL (2.7-7.7); Neutrophil % 62.3 % (47-70); Platelet Count 228 K/mm3 (150-450); RBC Distribution Width CV 12.7 % (11.6-14.6); RBC Distribution Width SD 41.8 fl (35.1-43.9); Red Blood Count 5.07 M/mm3 (4.2-5.4); White Blood Count 9.1 K/mm3 (4.4-11.0)
[2023-12-07 14:01] VITALS: BP 142/70; PULSE 114; RESP 20; TEMP 36.9; O2SAT 95
[2023-12-07 14:02] LABS: ALB/GLOB Ratio 1.2 RATIO (0.9-2.4); AST(SGOT) 17 U/L (15-37); Alanine Aminotransfer ALT/SGPT 25 U/L (13-56); Alkaline Phosphatase 102 U/L (45-117); Anion Gap 7 (5-15); BUN 19 mg/dL (7-18); Calcium,Total 9.7 mg/dL (8.5-10.1); Chloride 107 mmol/L (98-107); EST Glomerular Filtration Rate 56 mL/min (>60); Est Glom Filt Rate - Afr Amer 68 mL/min (>60); Estimated Creatinine Clearance 44.58 ml/min; Globulin 3.4 g/dL (2.2-4.2); Glucose 100 mg/dL (74-106); Potassium 3.6 mmol/L (3.5-5.1); Protein, Total 7.4 g/dL (6.4-8.2); Sodium Level 139 mmol/L (136-145); Troponin-I HS 6 pg/mL (3.0-54.0)
[2023-12-07 14:05] LABS: BNP,B-Type NATRIURETIC PEPTIDE 17.2 pg/mL (0-100)
[2023-12-07 14:18] LABS: D-Dimer Quantitative (DVT/PE) 0.85 FEU/ug/m (0.27-0.49)
--- NOTE | 2023-12-07 14:20 | CT_ITS ---
ACR Level 3 findings have been noted. An addendum which confirms receipt of the report will follow. HISTORY: Elevated D dimer. TECHNIQUE: CT angiogram of the chest was performed after the intravenous administration of 100 mL Isovue-370. Post-processing of the angiographic images was performed with multiplanar reformation and 3D reconstruction. Individualized dose optimization techniques were used for this CT. 1079 images. COMPARISON: XR same day. FINDINGS: CENTRAL AIRWAYS: Patent. LUNGS: Mild bilateral bronchial wall thickening. 6 mm noncalcified nodule in the left lower lobe adjacent to the diaphragm. PLEURA: No pneumothorax or significant pleural effusion. HEART/PERICARDIUM: Heart within normal limits in size with coronary artery disease. Trace pericardial fluid. PULMONARY ARTERIES: No filling defect. AORTA/VESSELS: No thoracic aortic aneurysm or dissection flap. Mild atherosclerosis. MEDIASTINUM/EDGAR: 2 x 3.2 cm heterogeneous and lobulated right paratracheal mass, obscured from streak artifact from the adjacent superior vena cava. Mild mass effect on the superior vena cava and right upper lobe pulmonary vessels. OSSEOUS STRUCTURES: Degenerative change. Chronic mild T3 and T9 compression fractures. UPPER ABDOMEN: Borderline dilated small bowel in the machine sorter image. CT/CTA Chest W/WO Contrast IMPRESSION: 3 cm right paratracheal mass, concerning for malignancy or metastatic lymphadenopathy. 6 mm left lower lobe pulmonary nodule; recommend follow-up Mild bronchitis. No evidence of acute pulmonary embolism. Electronically Signed: Marce Burt MD at 15:45 EDT ,
[2023-12-07] MEDS: Ondansetron 4 MG/2 ML Vial IV (14:26)
[2023-12-07] MEDS: Morphine 4 MG/ML Syringe IV ×2 (14:26→15:30)
[2023-12-07 15:00] VITALS: BP 125/57; PULSE 92; PULSE 95; RESP 20; RESP 22; TEMP 36.6; O2SAT 95; O2SAT 96
[2023-12-07] MEDS: LORazepam 2 MG/ML Syringe 0.5 MG IV (15:47)
[2023-12-07 16:45] VITALS: BP 116/66; PULSE 99; RESP 18; TEMP 36.4; O2SAT 96
== END 2023-12-07 16:46 | disposition home or self-care (01) ==
PROVIDERS: Emergency Provider Emergency Medicine; Visit Provider Emergency Medicine
DX: R05.3 Chronic cough (principal); J39.8 Other specified diseases of upper respiratory tract; L30.9 Dermatitis, unspecified; R79.1 Abnormal coagulation profile; R06.02 Shortness of breath; I10 Essential (primary) hypertension; E78.5 Hyperlipidemia, unspecified; Z79.899 Other long term (current) drug therapy
CPT/HCPCS: 71046; 71275; 80053; 83880; 84484; 85025; 85379; 93005; 96361; 96374; 96375; 96376; 99285; J7030; Q9967; A4216; J2405

== ENCOUNTER 2023-12-09 13:28 | Outpatient (CLI) | payer MEDICARE, SELFPAY ==
--- NOTE | 2023-12-09 13:30 | VDLE_ITS ---
Reason For Study: Elevated D-Dimer RIGHT LEFT GSV is normal. GSV is normal. CFV is compressible, spontaneous, phasic, CFV is compressible, spontaneous, phasic, competent and demonstrates normal competent, and demonstrates normal augmentation. augmentation. FV is compressible, spontaneous, phasic, FV is compressible, spontaneous, phasic, competent and demonstrates normal competent and demonstrates normal augmentation. augmentation. POP V is compressible, spontaneous, phasic, POP V is compressible, spontaneous, phasic, competent and demonstrates normal competent and demonstrates normal augmentation. augmentation. T/P Trunk is compressible. T/P Trunk is compressible. PTV is compressible. PTV is compressible. RT PerV is compressible. LT PerV is compressible. Procedure This is a venous duplex using B-mode, color flow and spectral Doppler. Exam performed in department. A preliminary report was called and/or faxed to ED, Dr. Santana. VL/Venous Duplex US - Anthony Extrem Interpretation Summary Deep veins of the bilateral lower extremities are patent and compressible segme ntally. There is no evidence of bilateral lower extremity deep vein thrombosis. The bilateral great saphenous veins appear patent and compressible segmentally. Ordering Physician: Jose Parmar Referring Physician: Ramiro Santana Performed By: Sofía Lawson, RANDELL, RVT
== END 2023-12-09 23:59 | disposition home or self-care (01) ==
PROVIDERS: PCP Family Medicine; Referring Provider Emergency Medicine; Visit Provider Emergency Medicine
DX: R79.1 Abnormal coagulation profile (principal); R06.02 Shortness of breath
CPT/HCPCS: 93970

== ENCOUNTER 2024-01-10 10:56 | Day surgery (SDC) | payer MEDICARE, SELFPAY ==
--- NOTE | 2024-01-07 07:24 | HP.PCM_ITS ---
[facility] - General General Date of Service: 01/10/24 HPI Narrative The patient is an 83-year-old female who was initially referred to the pulmonary medicine office on December 26 for the evaluation of a paratracheal mass. The patient has a medical history significant for right kidney cancer status post nephrectomy in 2009 in [place]. She was recently evaluated in the emergency department in November 2023 secondary to a history of nonproductive cough. A CTA chest was completed during that evaluation and demonstrated a 2 x 3 cm right paratracheal mass adjacent to the superior vena cava. The patient was subsequently referred to Dr. Montero of oncology, who evaluated the patient on December 11. He then referred the patient to our office to be considered for possible EBUS. [facility] Medical History (Updated 12/31/23 @ 13:48 by Yuliya Walden) Wears glasses Post-menopausal Lymph node enlargement Anxiety Bladder disease Anemia High cholesterol Back pain Difficulty swallowing History of GI bleed History of ulceration History of IBS Non-smoker Shortness of breath on exertion Asthma History of pain when walking History of edema Chronic cough Hyperlipemia Hypertension Cancer of kidney Home Medications ?Medication ?Instructions ?Recorded ?Last Taken ?Type metoprolol succinate 25 mg 25 mg PO DAILY 12/27/22 Unknown History tablet,extended release 24 hr montelukast 10 mg tablet 10 mg PO QHS 12/27/22 Unknown History pravastatin 40 mg tablet 40 mg PO QHS 12/27/22 Unknown History diclofenac sodium 1 % topical gel 2 ea topical 4X/DAY PRN pain 07/31/23 Unknown History (scale score 4-6) hydrocortisone 2.5 % topical cream 1 applic topical BID PRN rash 7 12/07/23 Unknown Rx days #30 grams Allergy/AdvReac Type Severity Reaction Status Date / Time Latex, Natural Rubber Allergy Intermediate Rash Verified 12/26/23 10:32 tizanidine Allergy Rash Verified 12/26/23 10:34 Family History Other No pertinent family history Surgical History (Updated 12/31/23 @ 13:48 by Yuliya Walden) Hx of left cataract extraction Hx of right cataract extraction Hx of colonoscopy H/O: hysterectomy H/O right nephrectomy Social History Smoking Status: Never smoker alcohol intake: never Physical Exam Const alert and no apparent distress General Appearance: cooperative HEENT normocephalic and head/scalp atraumatic Eyes PERRL and EOMs intact bilaterally Neck supple General: trachea midline Resp normal respiratory effort and normal air movement Cardio regular rate and regular rhythm GI normal to inspection, nondistended, normoactive bowel sounds Extremity no clubbing, cyanosis or edema Skin General Skin Exam: no breakdown Neuro CN's II-XII intact bilaterally and no focal motor deficits Psych cooperative and affect normal Assessment & Plan Assessment/Plan (1) Lung mass: PLAN: The patient presented to the pulmonary medicine office for the evaluation of a distal right paratracheal lung mass noted on recent CTA chest, measuring approximately 2 x 3 cm in size. The lesion itself is adjacent to the superior vena cava. Prior to proceeding with referral to thoracic surgery, I did discuss the feasibility of proceeding with EBUS in order to facilitate sampling of the aforementioned lesion. Risks and benefits of the proposed procedure were discussed with the patient. She is agreeable to proceed. If the lesion is unable to be accessed bronchoscopically, she will require outpatient referral to thoracic surgery.
[2024-01-08 10:56] LABS: Platelet Count 242 K/mm3 (150-450)
[2024-01-08 11:01] LABS: Prothrombin Time (Protime)PT. 13.1 SECONDS (11.7-14.9)
[2024-01-08 11:02] LABS: Partial Thromboplast Time 30.2 Seconds (24.1-36.2)
[2024-01-10] VITALS (10 sets, daily range): BP systolic 119–145; BP diastolic 57–75; PULSE 77–99; RESP 16–20; TEMP 36.2–36.4; O2SAT 92–98; BMI 25.3
--- NOTE | 2024-01-10 | ASPIG_PTH ---
PATIENT: DEANGELO BLACKWOOD LOC: EN U#:[id number] AGE/SX: 83/F ROOM: RE01/10/[address]: Dr. Johnnie Escobar DO : 1940 BED: DIS: 01/10/2024 SPEC #: [id number] RECD: 01/10/24 13:28 STATUS: ANÍBAL REEdy #: [id number] JEANNE: 01/10/24 00:[address]: Johnnie Escobar DEPT: CYTOLOGY RECD BY: Fei Kimbrough ENTERED: 01/10/24 13:29 SP TYPE: ASP OUT OTHR DR: Dr. Ramiro Santana MD Tissues: A - Lung, NOS B - Lung, NOS C - Lung, NOS D - Lung, NOS E - Lung, NOS F - Lung, NOS Procedures: FNA Specimen Adequacy Special Stain Group II Surgery Specimen Level IV Cytology Other HEADER OPERATION: EBUS with TBNA PRE-OP DIAGNOSIS: Endobronchial ultrasound TISSUE SUBMITTED: A-F- 4R EBUS DIAGNOSIS CYTOLOGY A. EBUS, TBNA, site 4R #1 (smears): Negative for malignant cells. Predominantly respiratory epithelial cells noted. A few lymphocytes are noted. B. EBUS, TBNA, site 4R #2 (smears): Negative for malignant cells. Predominantly respiratory epithelial cells noted. Rare lymphocytes are noted. C. EBUS, TBNA, site 4R #3 (smears): Negative for malignant cells. Predominantly respiratory epithelial cells noted. Rare lymphocytes are noted. D. EBUS, TBNA, site 4R #4 (smears): Bloody specimen. Negative for malignant cells. Rare respiratory epithelial cells. E. EBUS, TBNA, site 4R #5 (smears): Negative for malignant cells. Lymphocytes are present. Rare respiratory epithelial cells are noted. F. EBUS, TBNA, site 4R fluid (cytospin and cellblock): Negative for malignant cells. See cytology study. FAMILIA/ 01/13/2024 COMMENT The specimen is evaluated at the time of biopsy by Dr. Villanueva. Immediate Evaluation = Rapid onsite evaluation: EBUS, TBNA, site 4R, #1 (smears)- Negative for malignant cells. A few lymphocytes are noted. Respiratory epithelial cells are noted. EBUS, TBNA, site 4R, #2 (smears) - Negative for malignant cells. Predominantly respiratory epithelial cells noted. EBUS, TBNA, site 4R, #3 (smears) - Negative for malignant cells. Predominantly respiratory epithelial cells noted. EBUS, TBNA, site 4R#, 4 (smears) - Bloody specimen. Negative for malignant cells. Rare respiratory epithelial cells EBUS, TBNA, site 4R, #5 (smears) - Negative for malignant cells. Lymphocytes are noted. Rare respiratory epithelial cells. The specimen is sent to [facility] for expert opinion, reviewed by Dr. Hernandez and the above diagnosis is rendered. The complete report is viewable in the patient's EMR. Clinical correlation and appropriate follow up are necessary. Case has been reviewed in consultation with Dr. Headley who concurs with the above diagnosis. IDC:AM CYTOLOGY STUDY Slides are reviewed. F. The specimen consists of macrophages, lymphocytes, cartilage, and respiratory epithelial cells. CYTOLOGY GROSS A. Received labeled with the patient's name and and designated EBUS, TBNA, site 4R #1. The specimen consists of two stained smears for TRAVIS. B. Received labeled with the patient's name and and designated EBUS, TBNA, site 4R #2. The specimen consists of two stained smears for TRAVIS. C. Received labeled with the patient's name and and designated EBUS, TBNA, site 4R #3. The specimen consists of two stained smears for TRAVIS. D. Received labeled with the patient's name and and designated EBUS, TBNA, site 4R #4. The specimen consists of two stained smears for TRAVIS. E. Received labeled with the patient's name and and designated EBUS, TBNA, site 4R #5. The specimen consists of two stained smears for TRAVIS. F. Received in RPMI is 20 ml of pink, needle rinsed fluid labeled with the patient's name and and designated EBUS, TBNA, site 4R. The specimen is submitted for cytology study including cell block preparation. Mr 01/10/2024 TC:5 CPT:[id number]
--- NOTE | 2024-01-10 | ASPIG_PTH ---
PATIENT: DEANGELO BLACKWOOD LOC: EN U#:[id number] AGE/SX: 83/F ROOM: RE01/10/[address]: Dr. Johnnie Escobar DO : 1940 BED: DIS: 01/10/2024 SPEC #: [id number] RECD: 01/10/24 13:28 STATUS: ANÍBAL REEdy #: [id number] JEANNE: 01/10/24 00:[address]: Johnnie Escobar DEPT: CYTOLOGY RECD BY: Fei Kimbrough ENTERED: 01/10/24 13:29 SP TYPE: ASP OUT OTHR DR: Dr. Ramiro Santana MD Tissues: A - Lung, NOS B - Lung, NOS C - Lung, NOS D - Lung, NOS E - Lung, NOS F - Lung, NOS Procedures: FNA Specimen Adequacy Special Stain Group II Surgery Specimen Level IV Cytology Other HEADER OPERATION: EBUS with TBNA PRE-OP DIAGNOSIS: Endobronchial ultrasound TISSUE SUBMITTED: A-F- 4R EBUS DIAGNOSIS CYTOLOGY A. EBUS, TBNA, site 4R #1 (smears): - Category: Atypical. - Scant atypical cells. B. EBUS, TBNA, site 4R #2 (smears): - Category: Suspicious for malignancy. - Atypical cells, suspicious for non-small cell carcinoma. See note. NOTE: The smears show tissue fragments of epithelial cells with large, moderately pleomorphic nuclei with prominent single round nucleoi and vacuolated cytoplasm. The nuclei are crowded and overlapped. These epithelial cells lack cilia. The features are suspicious for non-small cell carcinoma. Clinical and radiographic correlation is recommended. C. EBUS, TBNA, site 4R #3 (smears): - Category: Benign - Rare respiratory epithelial cells and lymphocytes. D. EBUS, TBNA, site 4R #4 (smears): - Category: Benign - Rare respiratory epithelial cells and lymphocytes. E. EBUS, TBNA, site 4R #5 (smears): - Category: Benign - Rare respiratory epithelial cells and lymphocytes. F. EBUS, TBNA, site 4R fluid (cytospin and cellblock): - Category: Benign - Rare respiratory epithelial cells and lymphocytes. SJ/mr 01/13/2024 COMMENT The specimen is evaluated at the time of biopsy by Dr. Villanueva. Immediate Evaluation = Rapid onsite evaluation: A: Negative for malignant cells. A few lymphocytes are noted. Respiratory epithelial cells are noted. B: Negative for malignant cells. Predominantly respiratory epithelial cells noted. C: Negative for malignant cells. Predominantly respiratory epithelial cells noted. D: Bloody specimen. Negative for malignant cells. Rare epithelial cells. E: Negative for malignant cells. Lymphocytes are noted. Rare respiratory epithelial cells. CONSULTATION REPORT FROM [facility]: INTERPRETATION: The specimen is sent to [facility] for expert opinion, reviewed by Dr. Hernandez and the above diagnosis is rendered. The complete report is viewable in the patient's EMR As per EMR, the patient has history of right kidney cancer, s/p nephrectomy. Clinical correlation and appropriate follow up are necessary. Case has been reviewed in consultation with Dr. Headley who concurs with the above diagnosis. IDC:AM CYTOLOGY STUDY Slides are reviewed. F. The specimen consists of macrophages, lymphocytes, cartilage, and respiratory epithelial cells. CYTOLOGY GROSS A. Received labeled with the patient's name and and designated EBUS, TBNA, site 4R #1. The specimen consists of two stained smears for TRAVIS. B. Received labeled with the patient's name and and designated EBUS, TBNA, site 4R #2. The specimen consists of two stained smears for TRAVIS. C. Received labeled with the patient's name and and designated EBUS, TBNA, site 4R #3. The specimen consists of two stained smears for TRAVIS. D. Received labeled with the patient's name and and designated EBUS, TBNA, site 4R #4. The specimen consists of two stained smears for TRAVIS. E. Received labeled with the patient's name and and designated EBUS, TBNA, site 4R #5. The specimen consists of two stained smears for TRAVIS. F. Received in RPMI is 20 ml of pink, needle rinsed fluid labeled with the patient's name and and designated EBUS, TBNA, site 4R. The specimen is submitted for cytology study including cell block preparation. Mr 01/10/2024 TC:5 CPT:75609,[id number]
[2024-01-10] MEDS: Lactated Ringers 1,000 ML 15 ML IV (11:21)
[2024-01-10] MEDS: Ipratropium/Albuterol Sulfate 3 ML AMPUL.NEB INHALATION ×2 (11:34→14:00)
--- NOTE | 2024-01-10 11:43 | PCM.PRE.AN2 ---
ASA Classification* ASA Classification ASA Classification: 3 Assessment & Plan Anesthesia* Anesthesia Assessment Anesthesia Assessment: Discussed sedation and/or anesthesia options, risks, benefits, and alternatives with patient/parents/legal guardian/POA. Questions invited. The patient/parents/legal guardian/POA seems to understand and agrees to proceed with anesthesia plan. Reviewed the physical assessment, medical history, allergy history and patient home medications list prior to surgery/procedure/anesthetic and documented any changes. Performed airway and anesthesia risk assessments. Anesthesia Type Anesthesia Type: General History Source History Obtained from:: Patient and Chart Anesthesia Focused Assessment* Temperature: 97.3 F Pulse Rate: 85 Blood Pressure: 136/64 Respiratory Rate: 20 Pulse Ox: 98 Oxygen Delivery Method: Room Air Airway Assessment Mouth opens: >3 cm Mallampati Score: IV Teeth Condition: Intact Neck Range of motion (ROM): Limited ROM (Somewhat decreased extension.) Focused Labs Anesthesia Preop lab: CBC WBC 9.1 K/mm3 (4.4-11.0) 12/07/23 13:24 RBC 5.07 M/mm3 (4.2-5.4) 12/07/23 13:24 Hgb 15.5 g/dL (12.0-15.0) H 12/07/23 13:24 Hct 46.1 % (37-47) 12/07/23 13:24 Plt Count 242 K/mm3 (150-450) 01/08/24 10:13 CHEMISTRY Potassium 3.6 mmol/L (3.5-5.1) 12/07/23 13:24 Sodium 139 mmol/L (136-145) 12/07/23 13:24 BUN 19 mg/dL (7-18) H 12/07/23 13:24 Creatinine 1.00 mg/dL (0.55-1.02) 12/07/23 13:24 Glucose 100 mg/dL (74-106) 12/07/23 13:24 COAG PT 13.1 SECONDS (11.7-14.9) 01/08/24 10:13 Pre-Assessment Diagnosis/Proposed Procedure Planned Operative Procedure(s): EBUS Anesthesia History Anesthesia History - long term care pharmacist: Anesthesia History - long term care pharmacist Hx Hospitalization No 12/31/23 13:38 Any Problems With Anesthesia No 12/31/23 13:38 Cholinesterase deficiency No 12/31/23 13:38 You/Your Family Experience No 12/31/23 13:38 fever (hyperthermia) with Relationship Recent Exposure to Contagious No 01/10/24 11:13 Disease Does patient have nerve No 12/31/23 13:38 stimulator Patient instructed to have device shut off --Does patient have Pacemaker No 01/10/24 11:13 or ICD? When Was Last Pacemaker Check QUESTION #4 FULL TEXT: You/Your Family Experience fever (hyperthermia) with Anesthesia Last Oral Intake Last Oral intake: Last Oral Intake NPO since 08:00 01/10/24 11:13 Meds taken in AM with sips of Yes 01/10/24 11:13 water? Meds patient instructed to see ,mar 01/10/24 11:13 take am of surgery Any additional information?: Yes NPO since: 00:00 Meds taken in AM with sips of water?: Yes PONV PONV - long term care pharmacist: PONV - long term care pharmacist Female Yes 12/31/23 13:38 HX of Motion Sickness No 12/31/23 13:38 HX of N/V After Surgery No 12/31/23 13:38 Non-Smoker Yes 12/31/23 13:38 Duration of Surgery greater Yes 12/31/23 13:38 than 60 minutes Number of Risk Factors 3 12/31/23 13:38 PONV Score Moderate Risk 12/31/23 13:38 Height & Weight Height & Weight: Anesthesia: Height & Weight Height 5 ft 6 in 01/10/24 11:13 Weight: 71.214 kg 01/10/24 11:13 Body Mass Index (BMI) 25.3 01/10/24 11:13 Respiratory Assessment Respiratory Assessment - long term care pharmacist: Respiratory Tract Infection Hx - long term care pharmacist Hx Respiratory Tract Infection No 12/31/23 13:38 Any additional information?: Yes Hx Respiratory Tract Infection: Yes (Patient has a chronic cough. This is the reason for the procedure) STOP Sleep Apnea STOP Sleep Apnea - long term care pharmacist: STOP Sleep Apnea - long term care pharmacist Hx Hypertension Yes: CONTROLLED WITH MED 12/31/23 13:38 Hx Sleep Apnea No 12/31/23 13:38 CPAP BIPAP Do you snore loudly (louder No 12/31/23 13:38 than talking or can be heard Do you often feel tired/ Yes 12/31/23 13:38 fatigued/ sleepy during daytime? Has anyone observed you stop No 12/31/23 13:38 breathing during sleep? STOP Results Positive 12/31/23 13:38 QUESTION #5 FULL TEXT : Do you snore loudly (louder than talking or can be heard through closed doors)? 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 Specify any problems Hx of Preganancy in last 3 No 12/31/23 13:38 Months Nurse Filling Out Transfusion DSCHRIBER 12/31/23 13:38 & Questions: Date: 12/31/23 12/31/23 13:38 Time: 13:39 12/31/23 13:38 Patient unable to answer at this time (ie. confused, unrespo /Reproduction History /Reproductive History - long term care pharmacist: /Reproductive Hx- long term care pharmacist Hx Now No 12/31/23 13:38 Gestational Age (in weeks): EDC: Hx Hx Para Hx Section SAB No 12/31/23 13:38 Active Medications Active Medications: Current Medications Generic Name Dose Route Start Last Admin Trade Name Freq PRN Reason Stop Dose Admin Lactated Ringer's 1,000 mls @ 15 mls/hr 01/10/24 11:15 01/10/24 11:21 IV 15 mls/hr .Q48H FELECIA Administration PFSH Medical History Wears glasses Post-menopausal Lymph node enlargement Anxiety Bladder disease Anemia High cholesterol Back pain Difficulty swallowing History of GI bleed History of ulceration History of IBS Non-smoker Shortness of breath on exertion Asthma History of pain when walking History of edema Chronic cough Hyperlipemia Hypertension Cancer of kidney Home Medications ?Medication ?Instructions ?Recorded ?Last Taken ?Type metoprolol succinate 25 mg 25 mg PO DAILY 12/27/22 01/10/24 08:00 History tablet,extended release 24 hr montelukast 10 mg tablet 10 mg PO QHS 12/27/22 Unknown History pravastatin 40 mg tablet 40 mg PO QHS 12/27/22 Unknown History diclofenac sodium 1 % topical gel 2 ea topical 4X/DAY PRN pain 07/31/23 Unknown History (scale score 4-6) hydrocortisone 2.5 % topical cream 1 applic topical BID PRN rash 7 12/07/23 Unknown Rx days #30 grams Allergy/AdvReac Type Severity Reaction Status Date / Time Latex, Natural Rubber Allergy Intermediate Rash Verified 01/10/24 11:13 tizanidine Allergy Rash Verified 01/10/24 11:13 Family History Other No pertinent family history Surgical History Hx of left cataract extraction Hx of right cataract extraction Hx of colonoscopy H/O: hysterectomy H/O right nephrectomy Social History Smoking Status: Never smoker alcohol intake: never Review of Systems (Anesthesia) ROS Narrative System reviewed and no additional complaints, except as documented.
[2024-01-10] MEDS: DiphenhydrAMINE 50 MG/ML Syringe 25 MG IV (11:54)
[2024-01-10] MEDS: dexAMETHasone 10 MG/ML Vial IV (11:55)
--- NOTE | 2024-01-10 12:50 | PCM.POST.ANE ---
Anesthesia: Postop Eval I Current Vital Signs Temperature: 97.1 F Pulse Rate: 89 Blood Pressure: 122/60 Respiratory Rate: 16 Pulse Ox: 93 Oxygen Delivery Method: Room Air Assessment Airway patent: Yes Spontaneous unlabored respirations: Yes Mental status: Asleep (Arousable) nausea: No Vomiting: No Anesthesia Complication: No Fluid Hydration Crystalloid volume administer (ml): 800 Total IV fluid infused: 800 Progress Note Anesthesia document: Postop Eval 1 completed: Yes
[2024-01-10] MEDS: Lidocaine Jelly 2% 20 ML Syringe (URO-JET) 1 APPLIC (12:55)
--- NOTE | 2024-01-10 13:00 | OP.BRONCH_ITS ---
Patient Name: Isaura Beach Procedure Date: 01/10/2024 11:34 AM Date of : 1940 Age: 83 Procedure: Bronchoscopy Indications: Abnormal CT scan of chest Providers: Johnnie Escobar MD Medicines: General Anesthesia Complications: No immediate complications Procedure: Pre-Anesthesia Assessment: - A History and Physical has been performed. Patient meds and allergies have been reviewed. The risks and benefits of the procedure and the sedation options and risks were discussed with the patient. All questions were answered and informed consent was obtained. Patient identification and proposed procedure were verified prior to the procedure by the physician and the nurse in the procedure room. Mental Status Examination: alert and oriented. Airway Examination: normal oropharyngeal airway. Respiratory Examination: clear to auscultation. CV Examination: normal. ASA Grade Assessment: II - A patient with mild systemic disease. After reviewing the risks and benefits, the patient was deemed in satisfactory condition to undergo the procedure. The anesthesia plan was to use general anesthesia. Immediately prior to administration of medications, the patient was re-assessed for adequacy to receive sedatives. The heart rate, respiratory rate, oxygen saturations, blood pressure, adequacy of pulmonary ventilation, and response to care were monitored throughout the procedure. The physical status of the patient was re-assessed after the procedure. After I obtained informed consent, the scope was passed under direct vision. Throughout the procedure, the patient's blood pressure, pulse, and oxygen saturations were monitored continuously. The ultrasound bronchoscope was introduced through the mouth, via laryngeal mask airway and advanced to the tracheobronchial tree. The bronchoscope was introduced through the mouth, via laryngeal mask airway and advanced to the tracheobronchial tree. The procedure was accomplished without difficulty. The patient tolerated the procedure well. Findings: The laryngeal mask airway is in good position. The vocal cords appear normal. The subglottic space is normal. The trachea is of normal caliber. The lucrecia is sharp. The tracheobronchial tree was examined to at least the first subsegmental level. Bronchial mucosa and anatomy are normal; there are no endobronchial lesions, and no secretions. The scope was withdrawn and replaced with the EBUS bronchoscope to accomplish the ultrasound examination. Lymph Nodes: An endobronchial ultrasound endoscope was utilized to systematically examine the right lower paratracheal region (level 4R) in order to assist with guiding the biopsy needle. Lymph node sizing was performed via endobronchial ultrasound. Sampling by transbronchial needle aspiration was also performed using a 19ga Olympus needle. Sampling was performed from the distal right paratracheal lymph node station. - The distal right paratracheal (4R) node was biopsied. Five samples with the needle was obtained. Impression: - Abnormal CT scan of chest - The airway examination was normal. - Endobronchial ultrasound was performed. - Lymph node sampling was performed. Recommendation: - Await biopsy results. DO Johnnie Medina MD 01/10/2024 1:00:00 PM This report has been signed electronically. Number of Addenda: 1 Note Initiated On: 01/10/2024 11:34 AM Addendum Number: 1 Addendum Date: 01/10/2024 1:18:43 PM [facility] [id number] DO Johnnie Medina MD 01/10/2024 1:20:11 PM This report has been signed electronically.
--- NOTE | 2024-01-10 13:57 | PCM.POSTANE2 ---
Anesthesia Postop Eval I Sum Postop Eval Completion status Anesthesia document: Postop Eval 1 completed: Yes Anesthesia Postop Eval I Summary Anesthesia Postop Eval I Summary: Anesthesia Postop Eval I: Assessment Summary Airway patent Yes 01/10/24 12:53 Spontaneous unlabored Yes 01/10/24 12:53 respirations Mental status Asleep - Arousable 01/10/24 12:53 nausea No 01/10/24 12:53 Vomiting No 01/10/24 12:53 Anesthesia Postop Eval I: Fluid Summary Crystalloid volume administer 800 01/10/24 12:53 (ml) Colloids volume administered ( ml) Blood Product volume administered (ml) Total IV fluid infused 800 01/10/24 12:53 Anesthesia Postop Eval I: Summary Notes Anesthesia Complication No 01/10/24 12:53 Anesthesia Complication Comment: Post-operative progress note Anesthesia: Postop Eval II Evaluation Mental status: Awake Pain Level: 2 nausea: No Vomiting: No Progress Note Post-operative progress note: Patient has significant crackles or rales. Will give her another DuoNeb breathing treatment. Complications Anesthesia Complication: No
--- NOTE | 2024-01-10 14:34 | SUR.PHASEII ---
Patient lungs auscultated; cough, B/L inspiration clear, expiration course. Patient only complaint of cough.
== END 2024-01-10 14:36 | disposition home or self-care (01) ==
LOC: EN 10:57 → AC 10:58
PROVIDERS: PCP Family Medicine; Referring Provider Family Medicine; Visit Provider Internal Medicine Critical Care Medicine
PROC: BB4BZZZ Ultrasonography of Pleura (ICD-10-PCS; CPT 31629; principal; 2024-01-10 11:30)
DX: R91.8 Other nonspecific abnormal finding of lung field (principal); I10 Essential (primary) hypertension; E78.5 Hyperlipidemia, unspecified; Z90.5 Acquired absence of kidney; Z87.19 Personal history of other diseases of the digestive system; Z78.0 Asymptomatic menopausal state; R06.02 Shortness of breath; Z90.710 Acquired absence of both cervix and uterus; Z98.42 Cataract extraction status, left eye; Z98.41 Cataract extraction status, right eye; Z85.528 Personal history of other malignant neoplasm of kidney
CPT/HCPCS: 31629; 31653; 36415; 85049; 85610; 85730; 88161; 88172; 88305; 88313; 94640; J7120; J2405

== ENCOUNTER → 2024-01-21 | Outpatient (CLI) | payer MEDICARE, SELFPAY ==
--- NOTE | 2024-01-21 12:00 | PET_ITS ---
EXAMINATION: FDG PET-CT INDICATIONS: An 83-year-old female with history of mediastinal mass formation presenting for initial evaluation. COMPARISON EXAMINATION: CTA of the chest report dated 12/07/23 INDEX LESION SIZE SUV INTERPRETATION Right inguinal region 9.7-mm 4.2 May necessitate histopathologic investigation Right precarinal mediastinum 2.3 Quantitative criteria for viable neoplasm are not fulfilled TECHNIQUE: Following the intravenous administration of 14.5 mCi of F-18 deoxyglucose via the right hand, multiplanar image acquisitions of the neck, chest, abdomen and pelvis to level of mid thigh, obtained at one hour post radiopharmaceutical administration contemporaneously interpreted with the current CT of the neck, chest, abdomen and pelvis, to level of mid thigh, dated 01/21/24 via coregistration and CTA of the chest report dated 12/07/23 reveals: BLOOD GLUCOSE LEVEL:?? 85 mg/dl?HEIGHT:?66 inches?WEIGHT: 155 lbs. FINDINGS: HEAD/NECK: There is no evidence of abnormal increased glucose metabolism in the pharyngeal mucosal space, parapharyngeal space, bilateral-lateral and anterior neck, hypopharynx and distribution of the laryngeal structures. The visualized portion of the cerebral cortical-subcortical structures demonstrate symmetric and preserved glucose metabolism. Prominent tracer concentration is noted in the anterior aspect of the oral cavity in proximity to dental hardware placement most consistent with a component of metallic reconstruction artifact. CHEST: Enhanced tracer concentration is defined in the right upper paratracheal lymph node distribution generating a calculated maximal standard uptake value of 2.3. Pertinent chest CT findings are as follows. There is atherosclerotic calcification defined in the thoracic aorta without evidence of dilatation-aneurysm formation. Coronary arterial calcification is observed. Mediastinal and bilateral axillary soft tissue densities are non-glucose avid. There are no parenchymal densities-nodules defined in the right and left hemithorax with quantitatively significant increased FDG uptake. ABDOMEN/PELVIS: Facilitated uptake is noted in the right inguinal region in a single nodular presentation. The calculated maximal standard uptake value is 4.2. The maximal axial diameter of the corresponding soft tissue density is 9.7-mm. Normal physiologic distribution of the radiopharmaceutical is apparent in the hepatic (3.9) and splenic parenchyma, left renal unit, bladder and visualized intestinal tract. Pertinent abdomen and pelvis CT findings are as follows. 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 Colonic diverticula are defined without evidence of diverticulitis. Bilateral adnexal cyst formation is demonstrated. Cholelithiasis is demonstrated. There is atherosclerotic calcification defined in the abdominal aorta without evidence of dilatation-aneurysm formation. Pelvic arterial calcification is observed. SKELETAL: Degenerative changes are noted in the cervical, thoracic and lumbar spine without evidence of increased radiopharmaceutical concentration. PET/PET/CT Tumor Base -Thigh Init IMPRESSION: 1. The increase in radiopharmaceutical concentration defined in the right inguinal region may necessitate histopathologic analysis secondary to the quantitative degree of uptake. 2. Facilitated FDG concentration noted in the precarinal mediastinum to the right of the midline does not fulfill quantitative criteria for malignant transformation. (Alirio ch al, Journal of Clinical Oncology 16:2142, 1998). Electronic Signature Kavon Valderrama D.O. Accurate Quantification of SUVs for this report are calculated using the exclusive [employer] Technology, ([place]. Patent No. [phone] [place] patent [id number] [id number] [phone] ). Standardization and correction of the FDG SUV metric exclusively available with [employer] intellectual property, allow for vendor non-specific objective quantitative sequential FDG PET-CT comparison and otherwise unobtainable optimization of the sensitivity and specificity of the examination. [email or web address] Electronically Signed: Kavon Valderrama DO at 22:37 EDT ,
== END | disposition home or self-care (01) ==
PROVIDERS: PCP Family Medicine; Referring Provider Internal Medicine Critical Care Medicine; Visit Provider Internal Medicine Critical Care Medicine
DX: R91.8 Other nonspecific abnormal finding of lung field (principal)
CPT/HCPCS: 78815; A9552

== ENCOUNTER → 2024-01-29 | Outpatient (CLI) | payer MEDICARE, SELFPAY ==
--- NOTE | 2024-01-29 15:11 | US_ITS ---
STUDY: SUPERFICIAL ULTRASOUND - RIGHT GROIN REASON FOR EXAM: Female, 84 years old. R GROIN ADENOPATHY TECHNIQUE: A superficial ultrasound was performed with real-time and static scott-scale imaging. COMPARISON: None. FINDINGS: Multiple longitudinal and transverse ultrasound images of the right inguinal area do not demonstrate a discrete solid or cystic mass or lymphadenopathy. Some normal-sized of the inguinal lymph nodes with normal morphology and echogenicity are noted. US/Ext Non Vasc Limited/Soft Tiss IMPRESSION: Normal right groin. Electronically Signed: Kavon Cornelius MD at 11:48 EDT ,
== END | disposition home or self-care (01) ==
LOC: US 15:09
PROVIDERS: PCP Family Medicine; Referring Provider Internal Medicine Medical Oncology; Visit Provider Internal Medicine Medical Oncology
DX: R59.0 Localized enlarged lymph nodes (principal)
CPT/HCPCS: 76882

== ENCOUNTER 2025-03-21 22:28 | Emergency (ER) | payer MEDICARE, SELFPAY ==
[2025-03-21 22:29] VITALS: BP 140/90; PULSE 110; RESP 18; TEMP 36.8; O2SAT 97
[2025-03-21 22:32] VITALS: BMI 23.1
--- OUTSIDE RECORDS SUMMARY | 2025-03-21 22:47 | XMS RPT_ITS | CCD ---
Author Organization [facility] ion Partnership 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 Name Role Phone Subhash Navas Sean Unavailable Cocumelli, Subhash Sean Unavailable COCUMELLI, SUBHASH SEAN Unavailable Unavaila JANEY Boyle Unavailable Unavailable LUISANA RAM Unavailable Unavaila ble LUISANA RAM Unavailable Unavaila ble COCUMELLSUBHASH BarreraONY Unavailable Unavaila LUISANA Acuna Unavailable Unavaila ble LUISANA RAM Unavailable Unavaila ble COCUMELLI, SUBHASH SEAN Unavailable Unavaila ble LUISANA RAM Unavailable Unavaila ble LUISANA RAM Unavailable Unavaila ble GRACEUMELLISUBHASHONY Unavailable Unavaila ble Subhash Navasony Primary Care Provider Cocumelli, Subhash Sean Unavailable Unavailable Primary Care Provider Unavailabl e Subhash Navas Primary Care Provider [phone] CocSubhash [address] Sean Unavailable Cocumelli, Subhash Sean Unavailable Cocumelli, Subhash Sean Unavailable ANGELICA THOMAS Attending Unavailable ANGELICA THOMAS Admitting Unavailable SUBHASH NAVAS Primary Care Unavaila ble Cocumelli Subhash JIMENEZ Primary Care Provider Cocumelli DO, Subhash Sean Unavailable Cocumelli DO, Subhash Sean Unavailable Cocumelli DO, Subhash Tellez Primary Care Provider Cocumelli DO, Subhash Perryony Unavailable Cocumelli DO, Subhash Perryony Unavailable Cocumelli DO, Subhash Tellez Primary Care Provider Cocumelli DO, Subhash Perryony Unavailable Cocumelli DO, Subhash Perryony Unavailable Cocumelli DO, Subhash Perryony Unavailable Cocumelli DO, Subhash Perryony Unavailable [phone] LUISANA RAM Attending Unavaila LUISANA Acuna Referring Unavaila ble COCUMELLBruce, SUBHASH TELLEZ Primary Care Unavaila ble COCUMELLBruce, SUBHASH TELLEZ Attending Unavaila LUISANA Acuna Referring Unavaila ble LUISANA RAM Primary Care Unavaila ble Cocumelli DO, Subhash Tellez Unavailable Cocumelli DO, Subhash Tellez Unavailable Luisana Ram MD Primary Care Provider Cocumelli DO, Subhash Tellez Unavailable Cocumelli DO, Subhash Perryony Unavailable Cocumelli DO, Subhash Tellez Primary Care Provider Cocumelli DO, Subhash Tellez Primary Care Provider GRACEUMEERICI, SUBHASH TELLEZ Primary Care Unavaila ble COCUMELLI, SUBHASH TELLEZ Primary Care Unavaila ble Unavailable Primary Care Provider Unavailabl e COCUMEERICI, SUBHASH TELLEZ Primary Care Unavaila ble COCUMELLI, SUBHASH TELLEZ Attending Unavaila ble COCUMELLI, SUBHASH TELLEZ Attending Unavaila ble COCUMELLI, SUBHASH TELLEZ Primary Care Unavaila ble Cocumelli DO, Subhash Tellez Primary Care Provider Cocumelli DO, Subhash Tellez Primary Care Provider Unavailable Primary Care Provider Unavailabl e Bursley MD, Christopher B Primary Care Provider Max, Ramiro Primary Care Unavailable Nigel Tilley Attending Unavailable Reodica, Jose Referring Unavailable MUKHERJEE, JEN Primary Care Unavailable Gary Joyner Attending Unavailable MUKHERJEE, JEN Primary Care Unavailable Reodica, Jose Attending Unavailable Max, Ramiro Primary Care Unavailable Prah, Sandoval Referring Unavailable Prah, Sandoval Attending Unavailable Max, Ramiro Primary Care Unavailable Reodica, Jose Referring Unavailable Reodica, Jose Attending Unavailable Max, Ramiro Primary Care Unavailable Brown, Johnnie Referring Unavailable Brown, Johnnie Attending Unavailable Max, Ramiro Primary Care Unavailable Max, Ramiro Referring Unavailable Brown, Johnnie Attending Unavailable Max, Ramiro Primary Care Unavailable Prah, Sandoval Attending Unavailable Prah, Sandoval Referring Unavailable Max, Ramiro Primary Care Unavailable Brown, Johnnie Referring Unavailable Brown, Johnnie Attending Unavailable Brown, Johnnie Consulting Unavailable Max, Ramiro Primary Care Unavailable Max, Ramiro Referring Unavailable Juliana BARCLAY, Klarissa Attending Unavailable Max, Ramiro Primary Care Unavailable Max, Ramiro Referring Unavailable Prah, Sandoval Attending Unavailable Max, Ramiro Primary Care Unavailable Max, Ramiro Referring Unavailable Jf Holley Attending Unavailable Max, Ramiro Primary Care Unavailable Max, Ramiro Referring Unavailable Lissy Montero Attending Unavailable Max, Ramiro Primary Care Unavailable Max, Ramiro Referring Unavailable BrownJohnnie Attending Unavailable Podlogar MANAGER OF DRILLING.Zandra COLE Unavailable Knoble MANAGER OF DRILLING.Sapna COLE Unavailable Knoble MANAGER OF DRILLING.Sapna COLE Unavailable Latrice Reagan Attending Unavailable SPENCER VELARDE Referring Unavailable BURSLEY, CHRISTOPHER B Primary Care Unavailab Heidi Miller RN Unavailable Unavailable Spencer Velarde DO Unavailable AGUILAR NAVA Attending Unavailable AGUILAR NAVA Referring Unavailable BURSLEY, CHRISTOPHER B Primary Care Unavailab AGUILAR Cortez Referring Unavailable BURSLEY, CHRISTOPHER B Primary Care Unavailab AGUILAR Cortez Referring Unavailable BURSLEY, CHRISTOPHER B Primary Care Unavailab AGUILAR Cortez Referring Unavailable BURSLEY, CHRISTOPHER B Primary Care Unavailab le BURSLEY, CHRISTOPHER B Primary Care Unavailab le SPENCER VELARDE Referring Unavailable KATIE LAMBERTER B Primary Care Unavailab le MASCSPENCER Barrera Referring Unavailable KATIE LAMBERTER B Primary Care Unavailab le ERIK, ROSANNAOPHER B Primary Care Unavailab le ERIK, ROSANNAOPHER B Primary Care Unavailab le SPENCER VELARDE Referring Unavailable KATIE LAMBERTER B Primary Care Unavailab le SPENCER VELARDE Attending Unavailable AGUILAR NAVA Referring Unavailable KATIE LAMBERTER B Primary Care Unavailab le KATIE LAMBERTER B Attending Unavailab le KATIE LAMBERTER B Primary Care Unavailab le ERIK, CHRISTOPHER B Primary Care Unavailab AMELIA Lewis Attending Unavailable ZANDRA ZHAO Attending Unavailable SOLIS LAMBERT B Primary Care Unavailab le ERIK, KATIEER B Referring Unavailab le KATIE LAMBERTER B Primary Care Unavailab le SPENCER VELARDE Attending Unavailable SOLIS LAMBERT Primary Care Unavailab le MASCSPENCER Barrera Referring Unavailable KATIE LAMBERTER B Primary Care Unavailab le AGUILAR NAVA Attending Unavailable SPENCER VELARDE Referring Unavailable KATIE LAMBERTER B Primary Care Unavailab le ERIK, KTAIEER B Primary Care Unavailab le KATIE LAMBERTER B Primary Care Unavailab le JOSEE, DADESIUNG Referring Unavailable SPENCER VELARDE Referring Unavailable KATIE LAMBERTER B Primary Care Unavailab le MASCSPENCER Barrera Referring Unavailable KATIE LAMBERTER B Primary Care Unavailab le JOSEE, DADESIUNG Referring Unavailable KATIE LAMBERTER B Primary Care Unavailab le JOSEE, DADESIUNG Referring Unavailable BOBLEYROSANNAOPHER B Primary Care Unavailab le JOSEE, DADESIUNG Referring Unavailable KATIE LAMBERTER B Primary Care Unavailab le JOSEE, DADESIUNG Referring Unavailable KATIE LAMBERTER B Primary Care Unavailab MATEO Mack Attending Unavailable SOLIS LAMBERT Primary Care Unavailab le SOLIS LAMBERT Attending Unavailab le KATIE LAMBERTER B Primary Care Unavailab le SPENCER VELARDE Referring Unavailable KATIE LAMBERTER Michael Primary Care Unavailab le ROSANNA LAMBERTOPHER B Primary Care Unavailab RAMIRO Richards Attending Unavailable BURSLEY, CHRISTOPHER B Primary Care Unavailab le BOBLEY, CHRISTOPHER B Primary Care Unavailab HAZEL Iglesias Attending Unavailable KATIE LAMBERTER B Primary Care Unavailab le SPENCER VELARDE Referring Unavailable BURSLEYKATIEER B Primary Care Unavailab le MASCSPENCER Barrera Attending Unavailable SPENCER VELARDE Referring Unavailable BURSROSANNA ESPANAOPHER B Primary Care Unavailab le SPENCER VELARDE Attending Unavailable KATIE LAMBERTER B Primary Care Unavailab le SPENCER VELARDE Attending Unavailable ROSANNA LAMBERTOPHER B Primary Care Unavailab le SPENCER VELARDE Referring Unavailable BURSLEY, CHRISTOPHER B Primary Care Unavailab AGUILAR Cortez Referring Unavailable BURSLEY, CHRISTOPHER B Primary Care Unavailab AGUILAR Cortez Referring Unavailable BURSLEY, CHRISTOPHER B Primary Care Unavailab olena NAVA, AGUILAR Referring Unavailable BURSLEY, CHRISTOPHER B Primary Care Unavailab olena NAVA, AGUILAR Referring Unavailable BOBLEYROSANNAOPHER B Primary Care Unavailab AGUILAR Cortez Referring Unavailable BURSLEY CHRISTOPHER B Primary Care Unavailab AGUILAR Cortez Referring Unavailable BURSLEY CHRISTOPHER B Primary Care Unavailab le SPENCER VELARDE Referring Unavailable BURSLEY CHRISTOPHER B Primary Care Unavailab AGUILAR Cortez Attending Unavailable AGUILAR NAVA Referring Unavailable BURSLEY, CHRISTOPHER B Primary Care Unavailab le BOBLEY CHRISTOPHER B Attending Unavailab le BOBLEY CHRISTOPHER B Primary Care Unavailab LETICIA Tang Attending Unavailable SPENCER VELARDE Referring Unavailable BURSLEY CHRISTOPHER B Primary Care Unavailab le BURSLEY, CHRISTOPHER B Primary Care Unavailab le BURSLEY, CHRISTOPHER B Primary Care Unavailab le BOBLEY, CHRISTOPHER B Primary Care Unavailab le SPENCER VELARDE Referring Unavailable BURSLEY CHRISTOPHER B Primary Care Unavailab AGUILAR Cortez Attending Unavailable BOBLEY CHRISTOPHER B Primary Care Unavailab MARIAM Torres Referring Unavail able BOBLEY, CHRISTOPHER B Primary Care Unavailab MARIAM Torres Referring Unavail able BOBLEY CHRISTOPHER B Primary Care Unavailab PHILIPPE Giang Attending Unavailable BOBLEYROSANNAOPHER B Primary Care Unavailab AGUILAR Cortez Attending Unavailable SOLIS LMABERT Primary Care Unavailab AGUILAR Cortez Attending Unavailable AGUILAR NAVA Referring Unavailable SOLIS LAMBERT Primary Care Unavailab le Allergies Allergy Classification Reported Allergen(s) Allergy Type Date of Onset Reaction(s) Facility Alendronate (4 sources) Alendronate Drug Allergy 8 GI Intolerance [facility] Work Phone: HMG-CoA Reductase Inhibitors (statins) (6 sources) Hmg-Coa Reductase Inhibitors (Statins) Drug Allergy 5 [facility] Latex (4 sources) Latex Substance Allergy 5 [facility] Unclassified (7 sources) HMG-CoA reductase inhibitor Propensity to adverse reactions to drug 5 [facility] (20 sources) Hmg-Coa Reductase Inhibitors (Statins); Translations: [[id number] A REDUCTASE INHIBITORS] Propensity to adverse reactions to drug 5 [facility] Work Phone: (20 sources) Latex; Translations: [LATEX] Propensity to adverse reactions to drug 5 [facility] Work Phone: (20 sources) simvastatin; Translations: [SIMVASTATIN] Propensity to adverse reactions to drug 5 [facility] Work Phone: (20 sources) alendronate; Translations: [Unknown] Drug Allergy 8 GI Intolerance [facility] (4 sources) HMG-CoA reductase inhibitor Propensity to adverse reactions to drug 5 [facility] (3 sources) natural latex rubber Allergy to substance 3 [facility] (20 sources) Cat Dander; Translations: [CAT DANDER] Drug Allergy 4 [facility] (1 source) natural latex rubber Drug allergy (disorder) 4 [facility] Repository (3 sources) tiZANidine; Translations: [TIZANIDINE] Drug Allergy 4 [facility] Repository (20 sources) tiZANidine Drug Allergy 4 [facility] Medications Current Medications Medication Drug Class(es) Dates Sig (Normalized) Sig (Original) acetaminophen 325 mg / HYDROcodone bitartrate 5 mg oral tablet (1 source) Opioid Agonist Start: 07-31-2023 take 1 tablet by mouth every six hours Hydrocodone-Acetam inophen Active 1 TABLET PO EVERY 6 HOURS 12 3 July 31, 2023 [id number] 200 actuat albuterol 0.09 mg/actuat metered dose inhaler (20 sources) beta2-Adrenergic Agonist Start: 07-09-2024 End: 10-07-2024 take 2 puff(s) by inhalation every six hours as needed for wheezing albuterol HFA (PROVENTIL HFA, VENTOLIN HFA) 90 mcg/actuation inhaler Indications: Mild intermittent asthma without complication (HCC) Inhale 2 Puffs as instructed every 6 hours as needed for wheezing/shortness of breath. 1 Each 2 07/09/2024 Active Start: 01-03-2021 End: 01-03-2021 albuterol (PROVENTIL) 2.5 mg /3 mL (0.083 %) nebulizer solution 2.5 mg Start: 01-03-2021 End: 01-03-2021 albuterol (PROVENTIL) 2.5 mg /3 mL (0.083 %) nebulizer solution 2.5 mg Start: 10-22-2019 take 2 puff(s) by in halation every four hours as needed for wheezing albuterol (ProAir HFA) 90 mcg/actuation inhaler Inhale 2 (two) puffs every 4 (four) hours as needed for wheezing . 1 Inhaler 2 10/22/2019 Active Start: 10-22-2019 End: 10-03-2020 take 2 puff(s) by inhalation every four hours as needed for wheezing albuterol (ProAir HFA) 90 mcg/actuation inhaler Inhale 2 (two) puffs every 4 (four) hours as needed for wheezing . 1 Inhaler 2 10/22/2019 10/03/2020 Discontinued Start: 11-21-2015 take 2 puff(s) by in halation every four hours as needed for wheezing albuterol (PROAIR HFA) 90 mcg/actuation inhaler Inhale 2 puffs every 4 (four) hours as needed for wheezing. 1 Inhaler 2 11/21/2015 Active Start: 11-21-2015 albuterol (PRO AIR HFA) 90 mcg/actuation inhaler Inhale 2 puffs every 4 (four) hours as needed for wheezing. 1 Inhaler 2 11/21/2015 Active Start: 11-21-2015 albuterol (PRO AIR HFA) 90 mcg/actuation inhaler Inhale 2 puffs every 4 (four) hours as needed for wheezing. 1 Inhaler 2 11/21/2015 Active axitinib 1 mg oral tablet (11 sources) Kinase Inhibitor Start: 11-25-2024 take 2 tablets by mouth every twelve hours axitinib (INLYTA) 1 mg tablet Take 2 tablets (2 mg) by mouth every 12 hours w/ glass of water. 120 tablet 5 12/23/2024 2:27 PM EDT 11/25/2024 Active ciclopirox 80 mg/ml topical solution (2 sources) Start: 07-30-2023 End: 08-29-2023 Ciclopirox (LOPROX) 8 % solution Apply to affected area daily at bedtime. 6.6 mL 2 07/30/2023 08/29/2023 Active Comment on above: Apply to affected ar ea daily at bedtime. dextromethorphan hydrobromide 3 mg/ml / promethazine hydrochloride 1.25 mg/ml oral solution (3 sources) Phenothiazine, Uncompetitive W-ulnosu-A-aspartat e Receptor Antagonist, Sigma-1 Agonist Start: 06-02-2018 End: 06-09-2018 take 5 mL by mouth four times daily as needed for cough promethazine-de xtromethorphan (PROMETHAZINE-D M) 6.25-15 mg/5 mL syrup Take 5 mL by mouth 4 (four) times a day as needed for cough . 120 mL 0 06/02/2018 06/09/2018 Active Start: 04-21-2018 End: 04-28-2018 promethazine-dextromethorpha n (PROMETHAZINE-DM) 6.25-15 mg/5 mL syrup Indications: Viral URI with cough Take 5 mL by mouth 4 (four) times a day as needed for cough . 120 mL 0 04/21/2018 04/28/2018 doxycycline monohydrate 100 mg oral tablet (2 sources) Tetracycline-class Drug Start: 12-17-2022 End: 12-24-2022 take 1 tablet by mouth twice daily doxycycline monohydrate 100 mg tablet Take 1 tablet by mouth twice daily for 7 days. 14 tablet 0 12/17/2022 12/24/2022 Active Comment on above: Take 1 tablet by jayshree th twice daily for 7 days. enteric contrast (will be provided with radiology test) (2 sources) Start: 06-03-2024 End: 06-04-2024 enteric contrast (will be provided with radiology test) Indications: Cancer of kidney, right (HCC) , Metastasis to mediastinal lymph node (HCC) For CT CHESTABD/PEL W IVCON Routine order Administer, As Directed One Time Only, via Oral, Rectal, both Oral and Rectal, Enteric Tube, Stoma or Indwelling Catheter, Enteric Contrast as designated per enteric contrast guidelines 1 Each 06/03/2024 06/04/2024 Active Flu Vaccine [id number](65yr Up)(Pf)180 McG/0.5 Ml Intramuscular Syringe (1 source) Start: 01-20-2018 End: 01-20-2018 flu vaccine tv 2017, 65yr up,,PF, (FLUZONE HIGH DOSE) syringe Indications: Flu vaccine need Sign this order in conjunction with the immunization order to satisfy [place] Board [employer] Pharmacy Positive ID requirements for immunization orders.. 0.5 mL 0 01/20/2018 01/20/2018 Active gabapentin 100 mg oral capsule (1 source) Anti-epileptic Agent Start: 02-14-2017 End: 02-28-2017 take 1 capsule by mouth three times daily as needed gabapentin (NEURONTIN) 100 MG capsule Indications: Restless leg syndrome Take 1 (one) capsule (100 mg total) by mouth 3 (three) times a day as needed. 42 capsule 0 02/14/2017 02/28/2017 Active hydrOXYzine pamoate 25 mg oral capsule (12 sources) Antihistamine Start: 10-03-2020 take 1 capsule by mouth three times daily as needed for anxiety hydrOXYzine (VISTARIL) 25 MG capsule Indications: Anxiety Take 1 (one) capsule (25 mg total) by mouth 3 (three) times a day as needed for anxiety . 30 capsule 0 10/03/2020 Active Start: 06-02-2018 End: 11-11-2019 take 1 capsule by mouth three times daily as needed for anxiety hydrOXYzine (VISTARIL) 25 MG capsule Indications: Anxiety Take 1 (one) capsule (25 mg total) by mouth 3 (three) times a day as needed for anxiety . 30 capsule 0 06/02/2018 11/11/2019 Discontinued iv contrast (will be provide d with radiology test) (12 sources) Start: 06-03-2024 End: 06-04-2024 iv contrast (will be provide d with radiology test) Indications: Cancer of kidney, right (HCC) , Metastasis to mediastinal lymph node (HCC) CT Chest ABD/PEL-Inject, intravenously, once for 1 dose.No IV access, insert saline lock prior to the beginning of sedation, infusion, injection of imaging exam. Discontinue saline lock post exam. If Pt. has a central line or IVAD, may access for administration according to line specific nursing protocol. Once exam is complete flush line and de-access according to line specific nursing protocol in the CT contrast administration guidelines link. 1 Each 06/03/2024 06/04/2024 Active Start: 05-20-2024 End: 06-03-2024 iv contrast (will be provide d with radiology test) Indications: Metastasis to mediastinal lymph node (HCC) , History of kidney cancer CT Chest W -Inject, intravenously, once for 1 dose.No IV access, insert saline lock prior to the beginning of sedation, infusion, injection of imaging exam. Discontinue saline lock post exam. If Pt. has a central line or IVAD, may access for administration according to line specific nursing protocol. Once exam is complete flush line and de-access according to line specific nursing protocol in the CT contrast administration guidelines link. 1 Each 05/20/2024 06/03/2024 Discontinued Start: 05-20-2024 iv contrast (w ill be provided with radiology test) Indications: Metastasis to mediastinal lymph node (HCC) , History of kidney cancer CT Chest W -Inject, intravenously, once for 1 dose.No IV access, insert saline lock prior to the beginning of sedation, infusion, injection of imaging exam. Discontinue saline lock post exam. If Pt. has a central line or IVAD, may access for administration according to line specific nursing protocol. Once exam is complete flush line and de-access according to line specific nursing protocol in the CT contrast administration guidelines link. 1 Each 05/20/2024 Active Start: 03-19-2024 End: 03-20-2024 iv contrast (will be provide d with radiology test) Indications: History of kidney cancer , Metastasis to mediastinal lymph node (HCC) CT Chest W -Inject, intravenously, once for 1 dose.No IV access, insert saline lock prior to the beginning of sedation, infusion, injection of imaging exam. Discontinue saline lock post exam. If Pt. has a central line or IVAD, may access for administration according to line specific nursing protocol. Once exam is complete flush line and de-access according to line specific nursing protocol in the CT contrast administration guidelines link. 1 Each 03/19/2024 03/20/2024 Active Start: 02-14-2024 End: 02-14-2024 iv contrast (will be provide d with radiology test) Indications: Mediastinal mass CT Chest W -Inject, intravenously, once for 1 dose.No IV access, insert saline lock prior to the beginning of sedation, infusion, injection of imaging exam. Discontinue saline lock post exam. If Pt. has a central line or IVAD, may access for administration according to line specific nursing protocol. Once exam is complete flush line and de-access according to line specific nursing protocol in the CT contrast administration guidelines link. 1 Each 02/14/2024 02/14/2024 Discontinued Start: 02-14-2024 End: 02-15-2024 iv contrast (will be provide d with radiology test) Indications: Mediastinal mass , Other chest pain CT Chest W -Inject, intravenously, once for 1 dose.No IV access, insert saline lock prior to the beginning of sedation, infusion, injection of imaging exam. Discontinue saline lock post exam. If Pt. has a central line or IVAD, may access for administration according to line specific nursing protocol. Once exam is complete flush line and de-access according to line specific nursing protocol in the CT contrast administration guidelines link. 1 Each 02/14/2024 02/15/2024 Active ketoconazole 20 mg/ml medicated shampoo (15 sources) Azole Antifungal Start: 08-14-2021 End: 08-14-2022 ketoconazole (NIZORAL) 2 % shampoo Indications: Seborrhea capitis Apply topically twice weekly . 120 mL 1 08/14/2021 08/14/2022 Active Start: 02-27-2018 End: 11-11-2019 ketoconazole (NIZORAL) 2 % s hampoo Indications: Seborrhea capitis Apply topically twice weekly Start: 02/27/18. 120 mL 1 02/27/2018 11/11/2019 Discontinued metaxalone 800 mg oral tablet (1 source) Start: 12-27-2022 take 800 mg by mouth three times daily Metaxalone Active 800 MG PO THREE TIMES A DAY 01 11December 27, 2022 12:00am methocarbamol 500 mg oral tablet (1 source) Muscle Relaxant Start: 08-15-2021 End: 08-25-2021 take 1 tablet by mouth twice daily as needed for muscle spasms methocarbamoL (ROBAXIN) 500 MG tablet Indications: Muscle spasm Take 1 (one) tablet (500 mg total) by mouth 2 (two) times a day as needed for muscle spasms . 60 tablet 1 08/15/2021 08/25/2021 Active methylPREDNISolone (1 source) Corticosteroid Start: 07-30-2023 End: 08-05-2023 methylPREDNISolone (MEDROL, TERE,) 4 mg Dose-Pack Follow dosing instructions, take with food. 21 tablet 0 07/30/2023 08/05/2023 Active Comment on above: Follow dosing instru ctions, take with food. 24 hr metoprolol succinate 25 mg extended release oral tablet (20 sources) beta-Adrenergic Portia Start: 04-23-2023 take 1 tablet by mouth once daily metoprolol succinate ER (TOPROL XL) 25 mg 24 hr tablet Take 12.5 mg by mouth once daily. 04/23/2023 Active Start: 04-23-2023 take 1 tablet by jayshree th every twenty-four hours metoprolol succinate ER (TOPROL XL) 25 mg 24 hr tablet Take 12.5 mg by mouth. 04/23/2023 Active Start: 09-26-2022 End: 03-10-2024 take 1 tablet by mouth once daily metoprolol succinate ER (TOPROL XL) 25 mg 24 hr tablet Take 1 tablet by mouth once daily. 90 tablet 1 03/10/2024 03/10/2024 Discontinued (Course of therapy completed) Start: 09-26-2022 take 1 tablet by jayshree th every twenty-four hours metoprolol succinate ER (TOPROL XL) 25 mg 24 hr tablet Take 25 mg by mouth. 09/26/2022 Active Start: 09-26-2022 End: 04-23-2023 take 0.5 tablet by mouth once daily metoprolol succinate (TOPROL-XL) 25 MG 24 hr tablet Indications: Essential hypertension Take 0.5 (one-half) tablet (12.5 mg total) by mouth daily . 45 tablet 0 04/23/2023 Active Start: 09-26-2022 take 1 tablet by jayshree th every twenty-four hours metoprolol succinate ER (TOPROL XL) 25 mg 24 hr tablet Take 12.5 mg by mouth. 0 09/26/2022 Active Start: 02-02-2021 End: 09-25-2021 take 0.5 tablet by mouth once daily metoprolol succinate (TOPROL-XL) 25 MG 24 hr tablet Indications: Essential hypertension Take 0.5 (one-half) tablet (12.5 mg total) by mouth daily . 90 tablet 1 09/25/2021 Active Start: 09-20-2016 End: 08-15-2020 take 0.5 tablet by mouth once daily metoprolol succinate (TOPROL-XL) 25 MG 24 hr tablet Indications: Essential hypertension Take 0.5 (one-half) tablet (12.5 mg total) by mouth daily . 90 tablet 1 08/15/2020 Active Comment on above: Take 12.5 mg by mout h. Take 25 mg by mouth. montelukast 10 mg oral tablet (20 sources) Leukotriene Receptor Antagonist Start: End: take 1 tablet by mouth once daily montelukast (SINGULAIR) 10 mg tablet Take 1 tablet by mouth once daily. 90 tablet 11/25/2024 02/23/2025 Active Start: 01-03-2021 End: 01-03-2022 take 1 tablet by mouth once daily montelukast (SINGULAIR) 10 mg tablet Indications: Asthma, intermittent, uncomplicated , Environmental and seasonal allergies Take 1 (one) tablet (10 mg total) by mouth nightly . 30 tablet 11 01/03/2021 01/03/2022 Active Comment on above: Take 10 mg by mouth. ondansetron 8 mg oral tablet (1 source) Serotonin-3 Receptor Antagonist Start: 12-29-19 take 1 tablet by mouth every eight hours as needed for nausea and vomiting ondansetron (ZOFRAN) 8 mg tablet Indications: Cancer of kidney, right (HCC) Take 1 tablet by mouth every 8 hours as needed for nausea/vomiting (For chemotherapy induced nausea and vomiting.). 30 tablet 2 12/28/2024 Active PARoxetine hydrochloride 40 mg oral tablet (20 sources) Serotonin Reuptake Inhibitor Start: 03-10-20 End: 09-07-19 take 1 tablet by mouth once daily PARoxetine (PAXIL) 40 mg tablet Take 1 tablet by mouth once daily. 90 tablet 1 03/10/2024 Active Start: 01-26-2016 End: 02-14-2024 PARoxetine (PAXIL) 40 mg tab let Take 40 mg by mouth. 0 09/26/2022 10/24/2023 Discontinued (Other) End: 03-10-2024 take 1 tablet by mouth once daily PARoxetine ER (PAXIL CR) 25 mg 24 hr tablet Take 25 mg by mouth once daily. Unsure of dose 03/10/2024 Discontinued Comment on above: Take 40 mg by mouth. pravastatin sodium 40 mg oral tablet (20 sources) HMG-CoA Reductase Inhibitor Start: End: take 1 tablet by mouth once daily pravastatin (PRAVACHOL) 80 mg tablet Take 1 tablet by mouth once daily. 90 tablet 1 03/17/2024 03/17/2024 Discontinued (Course of therapy completed) Start: 09-26-2022 End: 12-22-2024 take 1 tablet by mouth once daily pravastatin (PRAVACHOL) 40 mg tablet Take 1 tablet by mouth once daily. 90 tablet 3 12/22/2024 Active Start: 05-28-2022 take 1 tablet by jayshree th once daily pravastatin (PRAVACHOL) 40 MG tablet Indications: hypercholesterolemia Take 1 (one) tablet (40 mg total) by mouth nightly Reasons: high cholesterol. 90 tablet 0 05/28/2022 Active Start: 02-02-2021 End: 09-25-2021 take 1 tablet by mouth once daily pravastatin (PRAVACHOL) 40 MG tablet Indications: hypercholesterolemia Take 1 (one) tablet (40 mg total) by mouth nightly Reasons: high cholesterol. 30 tablet 5 09/25/2021 Active Start: 01-12-2020 take 1 tablet by jayshree th once daily pravastatin (PRAVACHOL) 40 MG tablet Indications: hypercholesterolemia Take 1 (one) tablet (40 mg total) by mouth nightly Reasons: high cholesterol. 30 tablet 5 01/12/2020 Active Start: 04-06-2019 take 1 tablet by jayshree th once daily pravastatin (PRAVACHOL) 40 MG tablet Indications: hypercholesterolemia Take 1 (one) tablet (40 mg total) by mouth nightly Reasons: high cholesterol. 30 tablet 5 04/06/2019 Active Start: 02-25-2018 End: 09-23-2018 take 1 tablet by mouth once daily pravastatin (PRAVACHOL) 40 MG tablet Indications: hypercholesterolemia Take 1 (one) tablet (40 mg total) by mouth nightly Reasons: high cholesterol. 30 tablet 5 09/23/2018 Active Start: 05-31-2016 End: 01-31-2017 take 1 tablet by mouth once pravastatin (PRAVACHOL) 40 MG tablet Indications: high cholesterol Take 1 (one) tablet (40 mg total) by mouth nightly Reasons: hypercholesterolemia. 30 tablet 5 01/31/2017 Active Comment on above: Take 40 mg by mouth. predniSONE 20 mg oral tablet (2 sources) Start: 01-03-2021 End: 01-08-2021 take 2 tablets by mouth once daily predniSONE (DELTASONE) 20 MG tablet Indications: Allergic asthma, mild intermittent, with acute exacerbation Take 2 (two) tablets (40 mg total) by mouth daily for 5 days . 10 tablet 0 01/03/2021 01/08/2021 Active Start: 04-21-2018 End: 04-24-2018 take 1 tablet by mouth once daily predniSONE (DELTASONE) 20 MG tablet Indications: Viral URI with cough Take 1 (one) tablet (20 mg total) by mouth daily for 3 days . 3 tablet 0 04/21/2018 04/24/2018 Active vit A/vit C/vit E/zinc/coppe r (ICAPS AREDS ORAL) (20 sources) take 1 tablet by jayshree th twice daily vit A/vit C/vit E/zinc/copper (ICAPS AREDS ORAL) Take 1 tablet by mouth two times a day. Active take 1 capsule by mouth twice da blessing vit A/vit C/vit E/zinc/copper (ICAPS AREDS ORAL) Take 1 capsule by mouth two times a day. Active take 1 capsule by mouth twice da blessing vit A/vit C/vit E/zinc/copper (ICAPS AREDS ORAL) Take 1 capsule by mouth two times a day. 0 Active Completed/Discontinued Medications Medication Drug Class(es) Dates Sig (Normalized) Sig (Original) acetaminophen 325 mg / oxyCODONE hydrochloride 5 mg oral tablet (2 sources) Opioid Agonist Start: 02-09-2023 End: 07-31-2023 take 1 tablet by mouth every six hours as needed Oxycodone-Acetami nophen Discontinued 1 TABLET PO EVERY 6 HOURS NEEDED 12 3 February 09, 2023 July 31, 2023 9:36pm alendronic acid 70 mg oral tablet (1 source) Bisphosphonate Start: 10-11-2017 End: 01-01-2018 alendronate (FOSAMAX) 70 MG tablet Indications: Osteopenia, unspecified location Take 1 (one) tablet (70 mg total) by mouth every 7 days (full glass of water on an empty stomach). Remain upright and do not eat for next 30 min. 4 tablet 5 10/11/2017 01/01/2018 Discontinued benzonatate 100 mg oral capsule (6 sources) Non-narcotic Antitussive Start: 12-17-2022 End: 10-24-2023 take 1 capsule by mouth every eight hours as needed benzonatate (TESSALON PERLES) 100 mg capsule Take 1 capsule by mouth three times daily as needed for cough. 21 capsule 0 12/17/2022 10/24/2023 Discontinued (Other) Start: 06-02-2018 End: 06-12-2018 take 1 capsule by mouth three times daily as needed for cough benzonatate (TESSALON) 100 MG capsule Take 1 (one) capsule (100 mg total) by mouth 3 (three) times a day as needed for cough . 30 capsule 0 06/02/2018 06/12/2018 Active Comment on above: Take 1 capsule by [facility] three times daily as needed for cough. calcium chloride 0.0014 meq/ml / potassium chloride 0.004 meq/ml / sodium chloride 0.103 meq/ml / sodium lactate 0.028 meq/ml injectable solution (1 source) Start: 11-06-19 25 End: 11-06-19 25 5-30 mL/hr, INTRAVENOUS, CONTINUOUS, Starting on Shahrzad 11/05/24 at 0930, Until Shahrzad 11/05/24 at 1119, Pre-procedure d/c in PACU, Preprocedure celecoxib 100 mg oral capsule (12 sources) Nonsteroidal Anti-inflammatory Drug Start: 10-24-19 End: 04-21-19 take 1 capsule by mouth every twelve hours at mealtime as needed for pain celecoxib (CELEBREX) 100 mg capsule Indications: osteoarthritis , DUE TO SIDE EFFECTS OR INTOLERANCE, PATIENT HAS FAILED TRIAL AT LEAST 2 OTHER NSAIDS WITHIN THE PAST 6 MONTHS TAKE 1 PILL BY MOUTH WITH FOOD UP TO EVERY 12 HOURS NEEDED FOR PAIN 60 capsule 5 10/24/2023 03/10/2024 Discontinued (Course of therapy completed) chlorzoxazone 500 mg oral tablet (20 sources) Muscle Relaxant Start: 09-27-19 End: 10-24-19 chlorzoxazone (PARAFON FORTE DSC) 500 mg tablet Take 500 mg by mouth. 0 09/26/2022 10/24/2023 Discontinued (Other) Start: 08-14-2021 take 1 tablet by jayshree th three times daily as needed for muscle spasms chlorzoxazone (PARAFON FORTE) 500 mg tablet Indications: Muscle spasm Take 1 (one) tablet (500 mg total) by mouth 3 (three) times a day as needed for muscle spasms . 50 tablet 2 08/14/2021 Active Start: 01-15-2020 End: 12-01-2020 take 1 tablet by mouth three times daily as needed for muscle spasms chlorzoxazone (PARAFON FORTE) 500 mg tablet Indications: Muscle spasm Take 1 (one) tablet (500 mg total) by mouth 3 (three) times a day as needed for muscle spasms . 50 tablet 0 12/01/2020 Active Start: 05-26-2018 End: 11-11-2019 take 1 tablet by mouth three times daily as needed for muscle spasms chlorzoxazone (PARAFON FORTE) 500 mg tablet Indications: Neck pain Take 1 (one) tablet (500 mg total) by mouth 3 (three) times a day as needed for muscle spasms . 30 tablet 1 12/10/2018 11/11/2019 Discontinued Comment on above: Take 500 mg by mouth . clobetasol propionate 0.5 mg/ml topical cream (20 sources) Corticosteroid Start: 017 End: 020 clobetasol (TEMOVATE) 0.05 % cream Indications: Rash Mix with 12 oz jar of CeraVe ointment and apply twice daily. 15 g 0 09/20/2016 11/11/2019 Discontinued colesevelam hydrochloride 625 mg oral tablet (8 sources) Bile Acid Sequestrant Start: End: take 1 tablet by mouth twice daily as needed colesevelam (WELCHOL) 625 mg tablet Indications: Diarrhea, unspecified type Take 1 (one) tablet (625 mg total) by mouth 2 (two) times a day as needed. 60 tablet 0 12/03/2016 09/17/2017 Discontinued diclofenac sodium 0.01 mg/mg topical gel (3 sources) Nonsteroidal Anti-inflammatory Drug Start: End: apply 2 g topically four times daily diclofenac (VOLTAREN) 1 % topical gel Apply 2 g to affected area four times daily. 50 g 0 07/30/2023 10/24/2023 Discontinued (Other) Comment on above: Apply 2 g to affecte d area four times daily. dicyclomine hydrochloride 10 mg oral capsule (9 sources) Anticholinergic Start: End: take 1 capsule by mouth four times daily before mealtime dicyclomine (BENTYL) 10 MG capsule Take 1 (one) capsule (10 mg total) by mouth 4 (four) times a day before meals and nightly for 10 days . 40 capsule 0 05/30/2018 11/11/2019 Discontinued fluocinonide 0.5 mg/ml topical solution (12 sources) Corticosteroid Start: End: fluocinonide (LIDEX) 0.05 % external solution Indications: Seborrhea capitis Apply topically 2 (two) times a day . 60 mL 1 02/25/2018 11/11/2019 Discontinued gentamicin 3 mg/ml ophthalmic solution (5 sources) Start: End: gentamicin (GARAMYCIN) 0.3 % ophthalmic solution hyoscyamine sulfate 0.125 mg oral tablet (2 sources) Start: End: take 1 tablet by mouth three times daily as needed hyoscyamine (Levsin) 0.125 mg tablet Indications: Diarrhea, unspecified type , Irritable bowel syndrome, unspecified type Take 1 (one) tablet (0.125 mg total) by mouth 3 (three) times a day as needed for cramping . 30 tablet 0 04/30/2019 11/11/2019 Discontinued omeprazole 20 mg delayed release oral capsule (11 sources) Proton Pump Inhibitor Start: 017 End: take 1 capsule by mouth once daily omeprazole (PRILOSEC) 20 MG capsule Indications: Dyspepsia Take 1 (one) capsule (20 mg total) by mouth daily. 30 capsule 1 12/03/2016 01/01/2018 Discontinued prednisoLONE acetate 10 mg/ml ophthalmic suspension (5 sources) Corticosteroid Start: 020 End: prednisoLONE acetate (PRED FORTE) 1 % ophthalmic suspension 1000 ml sodium chloride 9 mg/ml injection (2 sources) Start: End: sodium chloride 0.9% (NS) bolus 1,000 mL Start: 05-30-2018 End: 05-31-2018 sodium chloride (PF) (NS) fl ush 5 mL tiZANidine 4 mg oral tablet (14 sources) Central alpha-2 Adrenergic Agonist Start: 10-24-2023 End: 04-21-2024 take 1 tablet by mouth at bedtime as needed for muscle spasms tiZANidine (ZANAFLEX) 4 mg tablet Indications: muscle spasm Take 1 tablet by mouth at bedtime as needed (muscle spasms). 30 tablet 5 10/24/2023 03/10/2024 Discontinued (Course of therapy completed) Start: 12-27-2022 End: 07-31-2023 take 2 mg by mouth every eight hours Tizanidine Discontinued 2 MG PO Q8H December 27, 2022 12:00am July 31, 2023 9:36pm triamcinolone acetonide 1 mg/ml topical cream (4 sources) Corticosteroid Start: 12-10-2018 End: 12-10-2019 triamcinolone (KENALOG) 0.1 % cream Indications: Seborrhea capitis Apply topically 2 (two) times a day . 30 g 0 12/10/2018 11/11/2019 Discontinued Problems Active Problems Problem Classification Problem Date Documented Da te Episodic/Chronic Abdominal pain (4 sources) Epigastric pain; Translations: [Left flank pain] 12-27-2022 Episodic Acute and unspecified renal failure (8 sources) Acute injury of kidney; Translations: [SALMA (acute kidney injury)] Onset: 10-09-2016 10-09-2016 Administrative/social admission (1 source) Counseling, unspecified; Translations: [Encounter for education] Onset: 12-17-2024 Episodic Allergic reactions (20 sources) Allergic disposition; Translations: [Allergic condition] 03-17-2015 Episodic Anxiety disorders (20 sources) Anxiety; Translations: [Anxiety disorder, unspecified] Onset: 05-23-2015 05-23-2015 Chronic Asthma (20 sources) Asthma; Translations: [Intermittent asthma] Onset: 01-17-2018 03-11-2016 Chronic Cancer of kidney and renal pelvis (20 sources) Malignant tumor of kidney; 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, except renal pelvis] Onset: 11-05-2024 06-03-2024 Chronic Cataract (1 source) Bilateral cataracts; Translations: [Cataract of both eyes, unspecified cataract type] Chronic Chronic obstructive pulmonary disease and bronchiectasis (1 source) Chronic obstructive pulmonary disease, unspecified; Translations: [Chronic obstructive pulmonary disease, unspecified] Onset: 01-24-2024 Chronic Disorders of lipid metabolism (20 sources) Hyperlipidemia; Translations: [Hyperlipidemia, unspecified] Onset: 03-17-2015 03-17-2015 Chronic Diverticulosis and diverticulitis (20 sources) Diverticula of intestine; Translations: [Diverticular disease] 03-17-2015 Chronic Essential hypertension (20 sources) Essential hypertension; Translations: [Essential (primary) hypertension] Onset: 01-26-2016 03-11-2016 Chronic Genitourinary symptoms and ill-defined conditions (1 source) Frequency of micturition; Translations: [Urinary frequency] Onset: 01-29-2025 Episodic Headache; including migraine (20 sources) Headache; Translations: [Cephalgia] 03-17-2015 Episodic Headache; including migraine (1 source) Headache; including migraine; Translations: [Headache, unspecified headache type] Onset: 08-05-2024 Lymphadenitis (3 sources) Localized enlarged lymph nodes; Translations: [Lymphadenopathy] Onset: 02-05-2024 03-02-2024 Episodic Menopausal disorders (1 source) Menopausal syndrome Chronic Mood disorders (11 sources) Moderate recurrent major depression; Translations: [Major depressive disorder, recurrent, moderate] Onset: 12-07-2024 12-07-2024 Chronic Mycoses (20 sources) Onychomycosis; Translations: [Tinea unguium] Onset: 09-20-2016 09-20-2016 Episodic Nonspecific chest pain (2 sources) Chest pain; Translations: [Other chest pain] 02-14-2024 Episodic Other aftercare (1 source) Radiotherapy follow-up; Translations: [Encounter for follow-up examination after completed treatment for conditions other than malignant neoplasm] 06-04-2024 Episodic Other bone disease and musculoskeletal deformities (20 sources) Osteopenia; Translations: [Other specified disorders of bone density and structure, unspecified site] 03-17-2015 Episodic Other congenital anomalies (1 source) Congenital malformation of musculoskeletal system, unspecified; 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, unspecified] Onset: 01-28-2024 Chronic Other connective tissue disease (4 sources) Spasm; Translations: [Other muscle spasm] Episodic Other connective tissue disease (1 source) Pain of toe of left foot; Translations: [Pain in left toe(s)] 07-31-2023 Episodic Other connective tissue disease (1 source) Pain of toe of right foot; Translations: [Pain in right toe(s)] 07-31-2023 Episodic Other connective tissue disease (1 source) Myofascial pain; Translations: [Myalgia, other site] 10-24-2023 Episodic Other diseases of kidney and ureters (20 sources) Kidney disease; Translations: [Hydronephrosis] Onset: 09-25-2016 03-17-2015 Episodic Other endocrine disorders (1 source) Unspecified adrenocortical insufficiency; 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)] Onset: 01-04-2025 Chronic Other gastrointestinal disorders (20 sources) Irritable bowel syndrome; Translations: [Irritable bowel syndrome without diarrhea] 03-17-2015 Chronic Other gastrointestinal disorders (2 sources) Irritable bowel syndrome without diarrhea; Translations: [Irritable bowel syndrome without diarrhea] Onset: 03-17-2015 Chronic Other gastrointestinal disorders (4 sources) Diarrhea; Translations: [Diarrhea, unspecified type] Episodic Other hematologic conditions (1 source) Erythrocytosis; 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] 03-19-2024 Episodic Other hematologic conditions (1 source) Secondary polycythemia; 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] 06-03-2024 Episodic Other hereditary and degenerative nervous system conditions (3 sources) Restless legs; Translations: [Restless legs syndrome] Onset: 02-14-2017 Chronic Other injuries and conditions due to external causes (2 sources) At low risk for fall; Translations: [History of falling] Episodic Other lower respiratory disease (1 source) Cough; Translations: [Cough] Episodic Other lower respiratory disease (1 source) Dyspnea; Translations: [Shortness of breath] 12-07-2023 Episodic Other lower respiratory disease (2 sources) Other nonspecific abnormal finding of lung field; Translations: [Other nonspecific abnormal finding of lung field] Onset: 01-23-2024 Episodic Other lower respiratory disease (1 source) Chronic cough; Translations: [Chronic cough] Onset: 12-31-2023 Episodic Other nervous system disorders (3 sources) Other chronic pain; Translations: [Other chronic pain] Onset: 03-19-2016 Chronic Other nervous system disorders (2 sources) Impaired cognition; Translations: [Other symptoms and signs involving cognitive functions and awareness] 12-10-2024 Episodic Other nervous system disorders (1 source) Other symptoms and signs involving cognitive functions and awareness; Translations: [Cognitive impairment] Onset: 12-31-2024 Episodic Other non-traumatic joint disorders (1 source) Swollen ankle region; Translations: [Effusion, unspecified ankle] 12-07-2023 Episodic Other skin disorders (20 sources) Eruption; Translations: [Rash and other nonspecific skin eruption] 03-17-2015 Episodic Other upper respiratory disease (20 sources) Allergy to cat dander; Translations: [Allergic rhinitis due to animal (cat) (dog) hair and dander] 03-17-2015 Chronic Other upper respiratory disease (7 sources) Allergic disposition; Translations: [Other allergic rhinitis] Chronic Other upper respiratory disease (3 sources) Allergic rhinitis due to animal (cat) (dog) hair and dander; Translations: [Allergic rhinitis due to other allergen] 03-17-2015 Chronic Other upper respiratory disease (2 sources) Other allergic rhinitis; Translations: [Other allergic rhinitis] Onset: 11-22-2021 Chronic Other upper respiratory disease (20 sources) Mediastinal mass; Translations: [Other diseases of mediastinum, not elsewhere classified] 02-14-2024 Episodic Other upper respiratory infections (2 sources) Viral upper respiratory tract infection; Translations: [Acute upper respiratory infection] 12-17-2022 Episodic Residual codes; unclassified (15 sources) Patient encounter status; Translations: [Encounter for prophylactic measures, unspecified] Onset: 03-11-2016 03-11-2016 Episodic Residual codes; unclassified (1 source) Memory impairment; Translations: [Other amnesia] 12-07-2024 Episodic Residual codes; unclassified (1 source) Other amnesia; Translations: [Memory impairment] Onset: 12-07-2024 Episodic Secondary malignancies (20 sources) Secondary malignant neoplasm of mediastinal lymph nodes; Translations: [Secondary and unspecified malignant neoplasm of intrathoracic lymph nodes] 03-19-2024 Chronic Secondary malignancies (20 sources) Secondary malignant neoplasm of pancreas; Translations: [Secondary malignant neoplasm of other digestive organs] Onset: 11-05-2024 09-17-2024 Chronic Secondary malignancies (2 sources) Secondary malignant neoplasm of other digestive organs; 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)] Onset: 11-05-2024 Chronic Secondary malignancies (1 source) Secondary and unspecified malignant neoplasm of intrathoracic lymph nodes; 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)] Onset: 12-07-2024 Chronic Spondylosis; intervertebral disc disorders; other back problems (2 sources) Lumbar spondylosis; Translations: [Spondylosis without myelopathy or radiculopathy, lumbar region] 10-24-2023 Chronic Spondylosis; intervertebral disc disorders; other back problems (20 sources) Chronic low back pain; Translations: [Neck pain] Onset: 03-19-2016 03-19-2016 Episodic Sprains and strains (2 sources) Lower back injury; Translations: [Strain of muscle, fascia and tendon of lower back, initial encounter] 02-09-2023 Episodic Thyroid disorders (1 source) Hypothyroidism, unspecified; Translations: [Acquired hypothyroidism] Onset: 01-04-2025 Chronic Unclassified (3 sources) Breast neoplasm screening status; Translations: [Abnormal coagulation profile] Onset: 01-09-2024 Episodic Unclassified (20 sources) Patient encounter status; Translations: [Prophylactic measure] Onset: 03-11-2016 03-11-2016 Unclassified (1 source) Unknown / UNK(Unknown) Onset: 11-07-2016 Unclassified (1 source) Preprocedural examination done; Translations: [Pre-op exam] Unclassified (1 source) Low back pain, unspecified; Translations: [Low back pain, unspecified] Onset: 03-19-2016 Unclassified (1 source) Established Patient Onset: 01-22-2025 Unclassified (1 source) Chronic low back pain, unspecified back pain laterality, unspecified whether sciatica present; Translations: [Chronic low back pain, unspecified back pain laterality, unspecified whether sciatica present] Onset: 03-10-2024 Past or Other Problems Problem Classification Problem Date Documented Da te Episodic/Chronic Acute and unspecified renal failure (20 sources) Acute kidney failure, unspecified; Translations: [Acute injury of kidney] Onset: 10-09-2016 10-09-2016 Episodic Calculus of urinary tract (20 sources) Kidney stone; Translations: [Calculus of kidney] Onset: 03-11-2016 03-11-2016 Episodic Cancer of kidney and renal pelvis (8 sources) Personal history of other malignant neoplasm of kidney; Translations: [History of primary malignant neoplasm of right kidney] Onset: 05-28-2024 12-27-2022 Episodic Crushing injury or internal injury (1 source) Injury of kidney; Translations: [SALMA (acute kidney injury) (HCC)] Onset: 10-09-2016 10-09-2016 Episodic External Injury - Adverse effects of medical drugs (1 source) Medication side effects present Other connective tissue disease (1 source) Pain in left lower limb Episodic Other connective tissue disease (2 sources) Other muscle spasm; Translations: [Other muscle spasm] Onset: 09-26-2022 Episodic Other diseases of kidney and ureters (20 sources) Hydronephrosis; Translations: [Unspecified hydronephrosis] Onset: 09-25-2016 09-25-2016 Episodic Other disorders of stomach and duodenum (20 sources) Indigestion; Translations: [Epigastric pain] Onset: 10-31-2016 10-31-2016 Episodic Other gastrointestinal disorders (20 sources) Dysphagia; Translations: [Dysphagia, unspecified] Onset: 09-26-2015 09-26-2015 Episodic Other hematologic conditions (2 sources) Secondary polycythemia; 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] Onset: 03-19-2024 Episodic Other inflammatory condition of skin (8 sources) Seborrheic dermatitis of scalp; Translations: [Seborrhea capitis] Onset: 08-14-2021 08-14-2021 Episodic Other injuries and conditions due to external causes (1 source) At risk for falls Episodic Other injuries and conditions due to external causes (2 sources) History of falling; Translations: [History of falling] Onset: 09-26-2022 Episodic Other skin disorders (14 sources) Mass of subcutaneous tissue of back; Translations: [Localized swelling, mass and lump, trunk] Onset: 11-23-2020 Episodic Other upper respiratory disease (1 source) Other diseases of mediastinum, not elsewhere classified; Translations: [Mediastinal mass] Onset: 03-10-2024 Episodic Residual codes; unclassified (20 sources) Needs influenza immunization; Translations: [Encounter for immunization] Onset: 01-31-2017 01-31-2017 Episodic Septicemia (except in labor) (20 sources) Sepsis due to Escherichia coli; Translations: [Sepsis due to Escherichia coli [E. coli]] Onset: 10-09-2016 Resolved: 08-14-2021 10-09-2016 Episodic Unclassified (1 source) CALCULOUS OF URETER LEFT Onset: 11-07-2016 Unclassified (1 source) Low back pain, unspecified; Translations: [Low back pain, unspecified] Onset: 09-26-2022 Results Test Name Value Interpretation Reference Range Facility CBC W Auto Differential pane l (Bld)on 02-12-2025 Basophils (Bld) [#/Vol] 10*3/uL Normal <0.11 [facility] Comment on above: Order Comment: Yecenia whiteside Type: BLOOD SPECIMENOrdering Facility: [facility] Address: [address] [place] [address] Performed By: #### [id number] 7021-8 ####[facility] [id number] [place] [address] [place] Basophils/100 WBC (Bld) 0.3 % Normal [facility] Comment on above: Order Comment: Yecenia whiteside Type: BLOOD SPECIMENOrdering Facility: [facility] Address: [address] [place] [address] Performed By: #### [id number] 7021-8 ####[facility] [id number] [place] [address] [place] Differential cell count method Nom (Bld) Auto Normal [facility] [facility] Comment on above: Order Comment: Speci men Type: BLOOD SPECIMENOrdering Facility: [facility] Address: [address] [place] [address] Performed By: #### 5 7021-8 ####[facility] HOSPITALJONATHANLIA [id number] [place] [address] [place] Eosinophils (Bld) [#/Vol] 0.49 10*3/uL High <0.46 [facility] Comment on above: Order Comment: Speci men Type: BLOOD SPECIMENOrdering Facility: [facility] Address: [address] [place] [address] Performed By: #### 5 7021-8 ####[facility] HOSPITALJONATHANLIA [id number] [place] [address] [place] Eosinophils/100 WBC (Bld) 7.9 % Normal [facility] Comment on above: Order Comment: Speci men Type: BLOOD SPECIMENOrdering Facility: [facility] Address: [address] [place] [address] Performed By: #### 5 7021-8 ####[facility] SPRINGSWJONATHANLIA [id number] [place] [address] [place] Erythrocyte distribution width (RBC) [Ratio] 12.9 % Normal 11.5-15.0 [facility] Comment on above: Order Comment: Speci men Type: BLOOD SPECIMENOrdering Facility: [facility] Address: [address] [place] [address] Performed By: #### 5 7021-8 ####[facility] HOSPITALNCLIA [id number] [place] [address] [place] Hematocrit (Bld) [Volume fraction] 49.6 % High 36.0-46.0 [facility] Comment on above: Order Comment: Speci men Type: BLOOD SPECIMENOrdering Facility: [facility] Address: [address] [place] [address] Performed By: #### 5 7021-8 ####[facility] [id number] [place] [address] [place] Hemoglobin (Bld) [Mass/Vol] 16.8 g/dL High 11.5-15.5 [facility] Comment on above: Order Comment: Speci men Type: BLOOD SPECIMENOrdering Facility: [facility] Address: [address] [place] [address] Performed By: #### 5 7021-8 ####[facility]PITALNCMCKAY[facility] [id number] [place] [address] [place] Immature granulocytes (Bld) [#/Vol] 10*3/uL Normal <0.10 [facility] Comment on above: Order Comment: Speci men Type: BLOOD SPECIMENOrdering Facility: [facility] Address: [address] [place] [address] Performed By: #### 5 7021-8 ####[facility] [id number] [place] [address] [place] Immature granulocytes/100 WBC (Bld) 0.2 % Normal [facility] Comment on above: Order Comment: Speci men Type: BLOOD SPECIMENOrdering Facility: [facility] Address: [address] [place] [address] Performed By: #### 5 7021-8 ####[facility] HOSPITALNCMCKAY[facility] [id number] [place] [address] [place] Lymphocytes (Bld) [#/Vol] 1.55 10*3/uL Normal 1.00-4.00 [facility] Comment on above: Order Comment: Speci men Type: BLOOD SPECIMENOrdering Facility: [facility] Address: [address] [place] [address] Performed By: #### 5 7021-8 ####[facility] ASHLEYSAUD [id number] [place] [address] [place] Lymphocytes/100 WBC (Bld) 24.8 % Normal [facility] Comment on above: Order Comment: Speci men Type: BLOOD SPECIMENOrdering Facility: [facility] Address: [address] [place] [address] Performed By: #### 5 7021-8 ####[facility] HOSPITALNCARIN [id number] [place] [address] [place] MCH (RBC) [Entitic mass] 30.8 pg Normal 26.0-34.0 [facility] Comment on above: Order Comment: Speci men Type: BLOOD SPECIMENOrdering Facility: [facility] Address: [address] [place] [address] Performed By: #### 5 7021-8 ####[facility] HOSPITALNCA [id number] [place] [address] [place] MCHC (RBC) [Mass/Vol] 33.9 g/dL Normal 30.5-36.0 [facility] Comment on above: Order Comment: Speci men Type: BLOOD SPECIMENOrdering Facility: [facility] Address: [address] [place] [address] Performed By: #### 5 7021-8 ####[facility] HOSPITALNCLIA [id number] [place] [address] [place] MCV (RBC) [Entitic vol] 90.8 fL Normal 80.0-100.0 [facility] Comment on above: Order Comment: Speci men Type: BLOOD SPECIMENOrdering Facility: [facility] Address: [address] [place] [address] Performed By: #### 5 7021-8 ####[facility] MILLTOWNCLIA [id number] [place] [address] [place] Monocytes (Bld) [#/Vol] 0.53 10*3/uL Normal <0.87 [facility] Comment on above: Order Comment: Speci men Type: BLOOD SPECIMENOrdering Facility: [facility] Address: [address] [place] [address] Performed By: #### 5 7021-8 ####[facility] SPRINGSWMELIA [id number] [place] [address] [place] Monocytes/100 WBC (Bld) 8.5 % Normal [facility] Comment on above: Order Comment: Speci men Type: BLOOD SPECIMENOrdering Facility: [facility] Address: [address] [place] [address] Performed By: #### 5 7021-8 ####[facility] CENTERLIA [id number] [place] [address] [place] Neutrophils (Bld) [#/Vol] 3.64 10*3/uL Normal 1.45-7.50 [facility] Comment on above: Order Comment: Speci men Type: BLOOD SPECIMENOrdering Facility: [facility] Address: [address] [place] [address] Performed By: #### 5 7021-8 ####[facility] HOSPITALNCLIA [id number] [place] [address] [place] Neutrophils/100 WBC (Bld) 58.3 % Normal [facility] Comment on above: Order Comment: Speci men Type: BLOOD SPECIMENOrdering Facility: [facility] Address: [address] [place] [address] Performed By: #### 5 7021-8 ####[facility] HOSPITALNCLIA [id number] [place] [address] [place] Nucleated RBC (Bld) [#/Vol] 10*3/uL Normal <0.01 [facility] Comment on above: Order Comment: Speci men Type: BLOOD SPECIMENOrdering Facility: [facility] Address: [address] [place] [address] Performed By: #### 5 7021-8 ####[facility] [id number] [place] [address] [place] Nucleated RBC/100 WBC (Bld) [Ratio] 0.0 /100 WBC Normal [facility] Comment on above: Order Comment: Speci men Type: BLOOD SPECIMENOrdering Facility: [facility] Address: [address] [place] [address] Performed By: #### 5 7021-8 ####[facility] [id number] [place] [address] [place] Platelet mean volume (Bld) [Entitic vol] 10.0 fL Normal 9.0-12.7 [facility] Comment on above: Order Comment: Speci men Type: BLOOD SPECIMENOrdering Facility: [facility] Address: [address] [place] [address] Performed By: #### 5 7021-8 ####[facility] [id number] [place] [address] [place] Platelets (Bld) [#/Vol] 224 10*3/uL Normal 150-400 [facility] Comment on above: Order Comment: Speci men Type: BLOOD SPECIMENOrdering Facility: [facility] Address: [address] [place] [address] Performed By: #### 5 7021-8 ####[facility] HOSPITALNCMCKAY[facility] [id number] [place] [address] [place] RBC (Bld) [#/Vol] 5.46 10*6/uL High 3.90-5.20 [facility] Comment on above: Order Comment: Speci men Type: BLOOD SPECIMENOrdering Facility: [facility] Address: [address] [place] [address] Performed By: #### 5 7021-8 ####[facility] ASHLEYWNCLIChrissy [id number] [place] [address] [place] WBC (Bld) [#/Vol] 6.24 10*3/uL Normal 3.70-11.00 [facility] Comment on above: Order Comment: Speci men Type: BLOOD SPECIMENOrdering Facility: [facility] Address: [address] [place] [address] Performed By: #### 5 7021-8 ####[facility] HOSPITALNCLIA [id number] [place] [address] [place] CNOVSPon 02-12-2025 CNOVSP Normal [facility] Comprehensive metabolic 2000 panelon 02-12-2025 Albumin [Mass/Vol] 4.4 g/dL Normal 3.9-4.9 [facility] Comment on above: Order Comment: Speci men Type: BLOOD SPECIMENOrdering Facility: [facility] Address: [address] [place] [address] Performed By: #### 2 4323-8 ####[facility] HOSPITALNCLIA [id number] [place] [address] [place] ALP [Catalytic activity/Vol] 87 U/L Normal 34-123 [facility] Comment on above: Order Comment: Speci men Type: BLOOD SPECIMENOrdering Facility: [facility] Address: [address] [place] [address] Performed By: #### 2 4323-8 ####[facility] HOSPITALNCLIA [id number] [place] [address] [place] ALT [Catalytic activity/Vol] 8 U/L Normal 7-38 [facility] Comment on above: Order Comment: Speci men Type: BLOOD SPECIMENOrdering Facility: [facility] Address: [address] [place] [address] Performed By: #### 2 4323-8 ####[facility] LILIANA MILLTOWNCLIA [id number] [place] [address] [place] Anion gap [Moles/Vol] 14 mmol/L Normal 8-15 [facility] Comment on above: Order Comment: Speci men Type: BLOOD SPECIMENOrdering Facility: [facility] Address: [address] [place] [address] Performed By: #### 2 4323-8 ####[facility] MILLWNCLIA [id number] [place] [address] [place] AST [Catalytic activity/Vol] 12 U/L Low 13-35 [facility] Comment on above: Order Comment: Speci men Type: BLOOD SPECIMENOrdering Facility: [facility] Address: [address] [place] [address] Performed By: #### 2 4323-8 ####[facility] MILLTOWNCLIA [id number] [place] [address] [place] Bilirubin [Mass/Vol] 0.4 mg/dL Normal 0.2-1.3 [facility] Comment on above: Order Comment: Speci men Type: BLOOD SPECIMENOrdering Facility: [facility] Address: [address] [place] [address] Performed By: #### 2 4323-8 ####[facility] MILLTOWNCLIA [id number] [place] [address] [place] Calcium [Mass/Vol] 10.1 mg/dL Normal 8.5-10.2 [facility] Comment on above: Order Comment: Speci men Type: BLOOD SPECIMENOrdering Facility: [facility] Address: [address] [place] [address] Performed By: #### 2 4323-8 ####[facility] CENTERLI [id number] [place] [address] [place] Chloride [Moles/Vol] 104 mmol/L Normal 98-107 [facility] Comment on above: Order Comment: Speci men Type: BLOOD SPECIMENOrdering Facility: [facility] Address: [address] [place] [address] Performed By: #### 2 4323-8 ####[facility] [id number] [place] [address] [place] CO2 [Moles/Vol] 22 mmol/L Normal 22-30 [facility] Comment on above: Order Comment: Speci men Type: BLOOD SPECIMENOrdering Facility: [facility] Address: [address] [place] [address] Performed By: #### 2 4323-8 ####[facility] [id number] [place] [address] [place] Creatinine [Mass/Vol] 0.86 mg/dL Normal 0.58-0.96 [facility] Comment on above: Order Comment: Speci men Type: BLOOD SPECIMENOrdering Facility: [facility] Address: [address] [place] [address] Performed By: #### 2 4323-8 ####[facility] [id number] [place] [address] [place] eGFRcr SerPlBld CKD-EPI 2020 67 mL/min/1.73m??? Normal >=60 [facility] Comment on above: Order Comment: Speci men Type: BLOOD SPECIMENOrdering Facility: [facility] Address: [address] [place] [address] Result Comment: Nicolle mated Glomerular Filtration Rate (eGFR) is calculated using the 2020 CKD-EPI creatinine equation. This equation utilizes serum creatinine, sex, and age as parameters. The creatinine assay has traceable calibration to isotope dilution-mass spectrometry. Refer to KDIGO guidelines for clinical interpretation. In patients with unstable renal function, e.g. those with acute kidney injury, the eGFR may not accurately reflect actual GFR. Performed By: #### 2 4323-8 ####[facility] ASHLEYRYDERWOODNCLIA [id number] [place] [address] [place] Glucose [Mass/Vol] 85 mg/dL Normal 74-99 [facility] Comment on above: Order Comment: Yecenia whiteside Type: BLOOD SPECIMENOrdering Facility: [facility] Address: [address] [place] [address] Result Comment: The [place] [employer] (ADA) provides guidance for cutoff values for fasting glucose and random glucose. The ADA defines fasting as no caloric intake for at least 8 hours. Fasting plasma glucose results between 100 to 125 mg/dL indicate increased risk for diabetes (prediabetes).Fasting plasma glucose results greater than or equal to 126 mg/dL meet the criteria for diagnosis of diabetes. In the absence of unequivocal hyperglycemia, results should be confirmed by repeat testing. In a patient with classic symptoms of hyperglycemia or hyperglycemic crisis, random plasma glucose results greater than or equal to 200 mg/dL meet the criteria for diagnosis of diabetes.Reference: Standards of Medical Care in Diabetes 2016, [place] [employer]. Diabetes Care. 2016.39(Suppl 1). Performed By: #### 2 4323-8 ####[facility] HOSPITALNCLIA [id number] [place] [address] [place] Potassium [Moles/Vol] 4.1 mmol/L Normal 3.7-5.1 [facility] Comment on above: Order Comment: Yecenia whiteside Type: BLOOD SPECIMENOrdering Facility: [facility] Address: [address] [id number] Performed By: #### 2 4323-8 ####[facility] [id number] [place] [address] [place] Protein [Mass/Vol] 6.6 g/dL Normal 6.3-8.0 [facility] Comment on above: Order Comment: Yecenia whiteside Type: BLOOD SPECIMENOrdering Facility: [facility] Address: [address] [place] [address] Performed By: #### 2 4323-8 ####[facility] HOSPITALNCLIA [id number] [place] [address] [place] Sodium [Moles/Vol] 140 mmol/L Normal 136-144 [facility] Comment on above: Order Comment: Speci men Type: BLOOD SPECIMENOrdering Facility: [facility] Address: [address] [place] [address] Performed By: #### 2 4323-8 ####[facility]PITALNCMCK[facility] [id number] [place] [address] [place] Urea nitrogen [Mass/Vol] 19 mg/dL Normal 7-21 [facility] Comment on above: Order Comment: Speci men Type: BLOOD SPECIMENOrdering Facility: [facility] Address: [address] [place] [address] Performed By: #### 2 4323-8 ####[facility] HOSPITALNCLI [id number] [place] [address] [place] Cortis SerPl-mCncon 02-13-20 25 Cortisol [Mass/Vol] 15.7 ug/dL Normal 4.8-19.5 [facility] Comment on above: Order Comment: Speci men Type: BLOOD SPECIMENOrdering Facility: [facility] Address: [address] [place] [address] Result Comment: Prov ided reference range is from 6-10 AM sample collection time.Cortisol Reference Range: 6-10 AM = 4.8-19.5 ug/dL, 4-8 PM = 2.5-11.9 ug/dL Performed By: #### 2 143-6, 3024-7, 3016-3 ####[facility] MAIN LABCLIA [id number] [place] [address] [place] T4 Free SerPl-mCncon 025 Free T4 [Mass/Vol] 1.3 ng/dL Normal 0.9-1.7 [facility] Comment on above: Order Comment: Speci men Type: BLOOD SPECIMENOrdering Facility: [facility] Address: [address] [place] [address] Performed By: #### 2 143-6, 3024-7, 3016-3 ####[facility] LABCLIA [id number] [place] [address] [place] TSH SerPl-aCncon 02-12-2025 TSH Qn 6.080 m[IU]/L High 0.270-4.200 [facility] Comment on above: Order Comment: Speci men Type: BLOOD SPECIMENOrdering Facility: [facility] Address: [address] [place] [address] Performed By: #### 2 143-6, 3024-7, 3016-3 ####[facility] LABCLIA [id number] [place] [address] [place] CNPTOUTREACHon 02-10-2025 CNPTOUTREACH Normal [facility] Bacteria Ur Culton Bacteria identified Cx Nom (U) Abnormal [facility] Comment on above: Performed By: #### 6 30-4 ####[facility] LABCLIA [id number] [place] [address] [place] CNOVon 01-29-2025 CNOV Normal [facility] CNPNon 01-29-2025 CNPN Normal [facility] CNPNon 01-28-2025 CNPN Normal [facility] CBC W Auto Differential pane l (Bld)on 01-22-2025 Basophils (Bld) [#/Vol] 0.03 10*3/uL Normal <0.11 [facility] Comment on above: Order Comment: Speci men Type: BLOOD SPECIMENOrdering Facility: [facility] Address: [address] [place] [address] Performed By: #### 5 7021-8 ####[facility] [id number] [place] [address] [place] Basophils/100 WBC (Bld) 0.4 % Normal [facility] Comment on above: Order Comment: Speci men Type: BLOOD SPECIMENOrdering Facility: [facility] Address: [address] [place] [address] Performed By: #### 5 7021-8 ####[facility] CENTERLIA [id number] [place] [address] [place] Differential cell count method Nom (Bld) Auto Normal [facility] Comment on above: Order Comment: Speci men Type: BLOOD SPECIMENOrdering Facility: [facility] Address: [address] [place] [address] Performed By: #### 5 7021-8 ####[facility] [id number] [place] [address] [place] Eosinophils (Bld) [#/Vol] 0.34 10*3/uL Normal <0.46 [facility] Comment on above: Order Comment: Speci men Type: BLOOD SPECIMENOrdering Facility: [facility] Address: [address] [place] [address] Performed By: #### 5 7021-8 ####[facility] CENTERLIA [id number] [place] [address] [place] Eosinophils/100 WBC (Bld) 4.2 % Normal [facility] Comment on above: Order Comment: Speci men Type: BLOOD SPECIMENOrdering Facility: [facility] Address: [address] [place] [address] Performed By: #### 5 7021-8 ####[facility] [id number] [place] [address] [place] Erythrocyte distribution width (RBC) [Ratio] 12.6 % Normal 11.5-15.0 [facility] Comment on above: Order Comment: Speci men Type: BLOOD SPECIMENOrdering Facility: [facility] Address: [address] [place] [address] Performed By: #### 5 7021-8 ####[facility] ASHLEYRYDERWOODBUNNY [id number] [place] [address] [place] Hematocrit (Bld) [Volume fraction] 47.1 % High 36.0-46.0 [facility] Comment on above: Order Comment: Speci men Type: BLOOD SPECIMENOrdering Facility: [facility] Address: [address] [place] [address] Performed By: #### 5 7021-8 ####[facility]PITALNCMCK[facility] [id number] [place] [address] [place] Hemoglobin (Bld) [Mass/Vol] 16.6 g/dL High 11.5-15.5 [facility] Comment on above: Order Comment: Speci men Type: BLOOD SPECIMENOrdering Facility: [facility] Address: [address] [place] [address] Performed By: #### 5 7021-8 ####[facility] [id number] [place] [address] [place] Immature granulocytes (Bld) [#/Vol] 10*3/uL Normal <0.10 [facility] Comment on above: Order Comment: Speci men Type: BLOOD SPECIMENOrdering Facility: [facility] Address: [address] [place] [address] Performed By: #### 5 7021-8 ####[facility] [id number] [place] [address] [place] Immature granulocytes/100 WBC (Bld) 0.2 % Normal [facility] Comment on above: Order Comment: Speci men Type: BLOOD SPECIMENOrdering Facility: [facility] Address: [address] [place] [address] Performed By: #### 5 7021-8 ####[facility] HOSPITALNCLIA [id number] [place] [address] [place] Lymphocytes (Bld) [#/Vol] 1.45 10*3/uL Normal 1.00-4.00 [facility] Comment on above: Order Comment: Speci men Type: BLOOD SPECIMENOrdering Facility: [facility] Address: [address] [place] [address] Performed By: #### 5 7021-8 ####[facility] [id number] [place] [address] [place] Lymphocytes/100 WBC (Bld) 17.9 % Normal [facility] Comment on above: Order Comment: Speci men Type: BLOOD SPECIMENOrdering Facility: [facility] Address: [address] [place] [address] Performed By: #### 5 7021-8 ####[facility] [id number] [place] [address] [place] MCH (RBC) [Entitic mass] 31.1 pg Normal 26.0-34.0 [facility] Comment on above: Order Comment: Speci men Type: BLOOD SPECIMENOrdering Facility: [facility] Address: [address] [place] [address] Performed By: #### 5 7021-8 ####[facility] [id number] [place] [address] [place] MCHC (RBC) [Mass/Vol] 35.2 g/dL Normal 30.5-36.0 [facility] Comment on above: Order Comment: Speci men Type: BLOOD SPECIMENOrdering Facility: [facility] Address: [address] [place] [address] Performed By: #### 5 7021-8 ####[facility] HOSPITALNCLI [id number] [place] [address] [place] MCV (RBC) [Entitic vol] 88.2 fL Normal 80.0-100.0 [facility] Comment on above: Order Comment: Speci men Type: BLOOD SPECIMENOrdering Facility: [facility] Address: [address] [place] [address] Performed By: #### 5 7021-8 ####[facility] [id number] [place] [address] [place] Monocytes (Bld) [#/Vol] 0.65 10*3/uL Normal <0.87 [facility] Comment on above: Order Comment: Speci men Type: BLOOD SPECIMENOrdering Facility: [facility] Address: [address] [place] [address] Performed By: #### 5 7021-8 ####[facility] [id number] [place] [address] [place] Monocytes/100 WBC (Bld) 8.0 % Normal [facility] Comment on above: Order Comment: Speci men Type: BLOOD SPECIMENOrdering Facility: [facility] Address: [address] [place] [address] Performed By: #### 5 7021-8 ####[facility] [id number] [place] [address] [place] Neutrophils (Bld) [#/Vol] 5.61 10*3/uL Normal 1.45-7.50 [facility] Comment on above: Order Comment: Speci men Type: BLOOD SPECIMENOrdering Facility: [facility] Address: [address] [place] [address] Performed By: #### 5 7021-8 ####[facility] [id number] [place] [address] [place] Neutrophils/100 WBC (Bld) 69.3 % Normal [facility] Comment on above: Order Comment: Speci men Type: BLOOD SPECIMENOrdering Facility: [facility] Address: [address] [place] [address] Performed By: #### 5 7021-8 ####[facility] ASHLEYRYDERWOODBUNNY [id number] [place] [address] [place] Nucleated RBC (Bld) [#/Vol] 10*3/uL Normal <0.01 [facility] Comment on above: Order Comment: Speci men Type: BLOOD SPECIMENOrdering Facility: [facility] Address: [address] [place] [address] Performed By: #### 5 7021-8 ####[facility] [id number] [place] [address] [place] Nucleated RBC/100 WBC (Bld) [Ratio] 0.0 /100 WBC Normal [facility] Comment on above: Order Comment: Speci men Type: BLOOD SPECIMENOrdering Facility: [facility] Address: [address] [place] [address] Performed By: #### 5 7021-8 ####[facility] [id number] [place] [address] [place] Platelet mean volume (Bld) [Entitic vol] 9.6 fL Normal 9.0-12.7 [facility] Comment on above: Order Comment: Speci men Type: BLOOD SPECIMENOrdering Facility: [facility] Address: [address] [place] [address] Performed By: #### 5 7021-8 ####[facility] HOSPITALNCLIA [id number] [place] [address] [place] Platelets (Bld) [#/Vol] 236 10*3/uL Normal 150-400 [facility] Comment on above: Order Comment: Speci men Type: BLOOD SPECIMENOrdering Facility: [facility] Address: [address] [place] [address] Performed By: #### 5 7021-8 ####[facility] HOSPITALNCLIA [id number] [place] [address] [place] RBC (Bld) [#/Vol] 5.34 10*6/uL High 3.90-5.20 [facility] Comment on above: Order Comment: Speci men Type: BLOOD SPECIMENOrdering Facility: [facility] Address: [address] [place] [address] Performed By: #### 5 7021-8 ####[facility] HOSPITALNCLIA [id number] [place] [address] [place] WBC (Bld) [#/Vol] 8.10 10*3/uL Normal 3.70-11.00 [facility] Comment on above: Order Comment: Speci men Type: BLOOD SPECIMENOrdering Facility: [facility] Address: [address] [place] [address] Performed By: #### 5 7021-8 ####[facility] HOSPITALNCLIA [id number] [place] [address] [place] CNADon 01-22-2025 DEANGELO CROWLEY ([id number]) 1940 F Date Time Provider Department 01/22/25 STACEY CLARK Normal [facility] CNOVSPon 01-22-2025 CNOVSP Normal [facility] CNPNon 01-22-2025 CNPN Normal [facility] Comprehensive metabolic 2000 panelon 01-22-2025 Albumin [Mass/Vol] 4.4 g/dL Normal 3.9-4.9 [facility] Comment on above: Order Comment: Speci men Type: BLOOD SPECIMENOrdering Facility: [facility] Address: [address] [place], [place] [address] Performed By: #### 2 4323-8 ####[facility] HOSPITALNCLIA [id number] [place] [address] [place] ALP [Catalytic activity/Vol] 113 U/L Normal 34-123 [facility] Comment on above: Order Comment: Speci men Type: BLOOD SPECIMENOrdering Facility: [facility] Address: [address] [place] [address] Performed By: #### 2 4323-8 ####[facility] LILIANASPRINGFIELD HOSPITALWNCLIA [id number] [place] [address] [place] ALT [Catalytic activity/Vol] 9 U/L Normal 7-38 [facility] Comment on above: Order Comment: Speci men Type: BLOOD SPECIMENOrdering Facility: [facility] Address: [address] [place] [address] Performed By: #### 2 4323-8 ####[facility] CENTERLIA [id number] [place] [address] [place] Anion gap [Moles/Vol] 14 mmol/L Normal 8-15 [facility] Comment on above: Order Comment: Speci men Type: BLOOD SPECIMENOrdering Facility: [facility] Address: [address] [place] [address] Performed By: #### 2 4323-8 ####[facility] CENTERLIA [id number] [place] [address] [place] AST [Catalytic activity/Vol] 12 U/L Low 13-35 [facility] Comment on above: Order Comment: Speci men Type: BLOOD SPECIMENOrdering Facility: [facility] Address: [address] [place] [address] Performed By: #### 2 4323-8 ####[facility] CENTERLIA [id number] [place] [address] [place] Bilirubin [Mass/Vol] 0.4 mg/dL Normal 0.2-1.3 [facility] Comment on above: Order Comment: Speci men Type: BLOOD SPECIMENOrdering Facility: [facility] Address: [address] [place] [address] Performed By: #### 2 4323-8 ####[facility] LILIANA MILLTOWNCLIA [id number] [place] [address] [place] Calcium [Mass/Vol] 10.2 mg/dL Normal 8.5-10.2 [facility] Comment on above: Order Comment: Speci men Type: BLOOD SPECIMENOrdering Facility: [facility] Address: [address] [place] [address] Performed By: #### 2 4323-8 ####[facility] MILLTOWNCLIA [id number] [place] [address] [place] Chloride [Moles/Vol] 102 mmol/L Normal 98-107 [facility] Comment on above: Order Comment: Speci men Type: BLOOD SPECIMENOrdering Facility: [facility] Address: [address] [place] [address] Performed By: #### 2 4323-8 ####[facility] COR[facility] SPRINGSWNCLIA [id number] [place] [address] [place] CO2 [Moles/Vol] 22 mmol/L Normal 22-30 [facility] Comment on above: Order Comment: Speci men Type: BLOOD SPECIMENOrdering Facility: [facility] Address: [address] [place] [address] Performed By: #### 2 4323-8 ####[facility] MILLTOWNCLIA [id number] [place] [address] [place] Creatinine [Mass/Vol] 0.85 mg/dL Normal 0.58-0.96 [facility] Comment on above: Order Comment: Speci men Type: BLOOD SPECIMENOrdering Facility: [facility] Address: [address] [place] [address] Performed By: #### 2 4323-8 ####[facility] CORAL SPRINGSWNCLIA [id number] [place] [address] [place] eGFRcr SerPlBld CKD-EPI 2020 68 mL/min/1.73m??? Normal >=60 [facility] Comment on above: Order Comment: Yecenia whiteside Type: BLOOD SPECIMENOrdering Facility: [facility] Address: [address] [place] [address] Result Comment: Nicolle mated Glomerular Filtration Rate (eGFR) is calculated using the 2020 CKD-EPI creatinine equation. This equation utilizes serum creatinine, sex, and age as parameters. The creatinine assay has traceable calibration to isotope dilution-mass spectrometry. Refer to KDIGO guidelines for clinical interpretation. In patients with unstable renal function, e.g. those with acute kidney injury, the eGFR may not accurately reflect actual GFR. Performed By: #### 2 4323-8 ####[facility] [id number] [place] [address] [place] Glucose [Mass/Vol] 72 mg/dL Low 74-99 [facility] Comment on above: Order Comment: Yecenia whitseide Type: BLOOD SPECIMENOrdering Facility: [facility] Address: [address] [place] [address] Result Comment: The [place] Diabetes Association (ADA) provides guidance for cutoff values for fasting glucose and random glucose. The ADA defines fasting as no caloric intake for at least 8 hours. Fasting plasma glucose results between 100 to 125 mg/dL indicate increased risk for diabetes (prediabetes).Fasting plasma glucose results greater than or equal to 126 mg/dL meet the criteria for diagnosis of diabetes. In the absence of unequivocal hyperglycemia, results should be confirmed by repeat testing. In a patient with classic symptoms of hyperglycemia or hyperglycemic crisis, random plasma glucose results greater than or equal to 200 mg/dL meet the criteria for diagnosis of diabetes.Reference: Standards of Medical Care in Diabetes 2016, [place] Diabetes Association. Diabetes Care. 2016.39(Suppl 1). Performed By: #### 2 4323-8 ####[facility] [id number] [place] [address] [place] Potassium [Moles/Vol] 4.4 mmol/L Normal 3.7-5.1 [facility] Comment on above: Order Comment: Speci men Type: BLOOD SPECIMENOrdering Facility: [facility] Address: [address] [place] [address] Performed By: #### 2 4323-8 ####[facility] PAULWNCLIA [id number] [place] [address] [place] Protein [Mass/Vol] 7.2 g/dL Normal 6.3-8.0 [facility] Comment on above: Order Comment: Speci men Type: BLOOD SPECIMENOrdering Facility: [facility] Address: [address] [place] [address] Performed By: #### 2 4323-8 ####[facility] HOSPITALNCLIA [id number] [place] [address] [place] Sodium [Moles/Vol] 138 mmol/L Normal 136-144 [facility] Comment on above: Order Comment: Speci men Type: BLOOD SPECIMENOrdering Facility: [facility] Address: [address] [place] [address] Performed By: #### 2 4323-8 ####[facility] HOSPITALNCLIA [id number] [place] [address] [place] Urea nitrogen [Mass/Vol] 16 mg/dL Normal 7-21 [facility] Comment on above: Order Comment: Speci men Type: BLOOD SPECIMENOrdering Facility: [facility] Address: [address] [place] [address] Performed By: #### 2 4323-8 ####[facility] HOSPITALNCLIA [id number] [place] [address] [place] Cortis SerPl-mCncon 10-10-20 25 Cortisol [Mass/Vol] 10.4 ug/dL Normal 4.8-19.5 [facility] Comment on above: Order Comment: Speci men Type: BLOOD SPECIMENOrdering Facility: [facility] Address: [address] [place], [place] [id number] Result Comment: Prov ided reference range is from 6-10 AM sample collection time.Cortisol Reference Range: 6-10 AM = 4.8-19.5 ug/dL, 4-8 PM = 2.5-11.9 ug/dL Performed By: #### 3 016-3, 2142-6, 3023-10 ####[facility] LABCLIA [id number] [place] [id number] [place] T4 Free SerPl-mCncon 025 Free T4 [Mass/Vol] 1.4 ng/dL Normal 0.9-1.7 [facility] Comment on above: Order Comment: Speci men Type: BLOOD SPECIMENOrdering Facility: [facility] Address: [address] [place] [address] Performed By: #### 3 016-3, 2142-09, 3023-10 ####[facility] LABCLIA [id number] [place] [address] [place] TSH SerPl-aCncon 01-22-2025 TSH Qn 3.590 m[IU]/L Normal 0.270-4.200 [facility] Comment on above: Order Comment: Speci men Type: BLOOD SPECIMENOrdering Facility: [facility] Address: [address] [place] [address] Performed By: #### 3 016-3, 2142-09, 3023-10 ####[facility] LABCLIA [id number] [place] [address] [place] CNCOon 01-21-2025 CNCO Letter Text Normal [facility] CNPNon 01-21-2025 CNPN Normal [facility] CNPNon 01-18-2025 CNPN Normal [facility] CNPNon 01-15-2025 CNPN Normal [facility] CNPTOUTREACHon 01-14-2025 CNPTOUTREACH Normal [facility] CNPNon 01-05-2025 CNPN Normal [facility] CBC W Auto Differential pane l (Bld)on 01-04-2025 Basophils (Bld) [#/Vol] 10*3/uL Normal <0.11 [facility] Comment on above: Order Comment: Speci men Type: BLOOD SPECIMENOrdering Facility: [facility] Address: [address] [place] [address] Performed By: #### 5 7021-8 ####[facility]ENTERLIA [id number] [place] [address] [place] Basophils/100 WBC (Bld) 0.3 % Normal [facility] Comment on above: Order Comment: Speci men Type: BLOOD SPECIMENOrdering Facility: [facility] Address: [address] [place] [address] Performed By: #### 5 7021-8 ####[facility] [id number] [place] [address] [place] Differential cell count method Nom (Bld) Auto Normal [facility] Comment on above: Order Comment: Speci men Type: BLOOD SPECIMENOrdering Facility: [facility] Address: [address] [place] [address] Performed By: #### 5 7021-8 ####[facility] [id number] [place] [address] [place] Eosinophils (Bld) [#/Vol] 0.56 10*3/uL High <0.46 [facility] Comment on above: Order Comment: Speci men Type: BLOOD SPECIMENOrdering Facility: [facility] Address: [address] [place] [address] Performed By: #### 5 7021-8 ####[facility] [id number] [place] [address] [place] Eosinophils/100 WBC (Bld) 8.2 % Normal [facility] Comment on above: Order Comment: Speci men Type: BLOOD SPECIMENOrdering Facility: [facility] Address: [address] [place] [address] Performed By: #### 5 7021-8 ####[facility] ASHLEYGabrieleNCWILLAA [id number] [place] [address] [place] Erythrocyte distribution width (RBC) [Ratio] 12.8 % Normal 11.5-15.0 [facility] Comment on above: Order Comment: Speci men Type: BLOOD SPECIMENOrdering Facility: [facility] Address: [address] [place] [address] Performed By: #### 5 7021-8 ####[facility] HOSPITALJONATHANA [id number] [place] [address] [place] Hematocrit (Bld) [Volume fraction] 44.7 % Normal 36.0-46.0 [facility] Comment on above: Order Comment: Speci men Type: BLOOD SPECIMENOrdering Facility: [facility] Address: [address] [place] [address] Performed By: #### 5 7021-8 ####[facility] [id number] [place] [address] [place] Hemoglobin (Bld) [Mass/Vol] 15.4 g/dL Normal 11.5-15.5 [facility] Comment on above: Order Comment: Speci men Type: BLOOD SPECIMENOrdering Facility: [facility] Address: [address] [place] [address] Performed By: #### 5 7021-8 ####[facility] HOSPITALNCLIA [id number] [place] [address] [place] Immature granulocytes (Bld) [#/Vol] 10*3/uL Normal <0.10 [facility] Comment on above: Order Comment: Speci men Type: BLOOD SPECIMENOrdering Facility: [facility] Address: [address] [place] [address] Performed By: #### 5 7021-8 ####[facility] CENTERLIA [id number] [place] [address] [place] Immature granulocytes/100 WBC (Bld) 0.1 % Normal [facility] Comment on above: Order Comment: Speci men Type: BLOOD SPECIMENOrdering Facility: [facility] Address: [address] [place] [address] Performed By: #### 5 7021-8 ####[facility] HOSPITALJONATHANChrissy [id number] [place] [address] [place] Lymphocytes (Bld) [#/Vol] 1.55 10*3/uL Normal 1.00-4.00 [facility] Comment on above: Order Comment: Speci men Type: BLOOD SPECIMENOrdering Facility: [facility] Address: [address] [place] [address] Performed By: #### 5 7021-8 ####[facility] [id number] [place] [address] [place] Lymphocytes/100 WBC (Bld) 22.6 % Normal [facility] Comment on above: Order Comment: Speci men Type: BLOOD SPECIMENOrdering Facility: [facility] Address: [address] [place] [address] Performed By: #### 5 7021-8 ####[facility] CENTERARIN [id number] [place] [address] [place] MCH (RBC) [Entitic mass] 32.2 pg Normal 26.0-34.0 [facility] Comment on above: Order Comment: Speci men Type: BLOOD SPECIMENOrdering Facility: [facility] Address: [address] [place] [address] Performed By: #### 5 7021-8 ####[facility] HOSPITALNCLIA [id number] [place] [address] [place] MCHC (RBC) [Mass/Vol] 34.5 g/dL Normal 30.5-36.0 [facility] Comment on above: Order Comment: Speci men Type: BLOOD SPECIMENOrdering Facility: [facility] Address: [address] [place] [address] Performed By: #### 5 7021-8 ####[facility] HOSPITALNCMCKAY[facility] [id number] [place] [address] [place] MCV (RBC) [Entitic vol] 93.3 fL Normal 80.0-100.0 [facility] Comment on above: Order Comment: Speci men Type: BLOOD SPECIMENOrdering Facility: [facility] Address: [address] [place] [address] Performed By: #### 5 7021-8 ####[facility] HOSPITALNCMCKAY-[facility]OSPITAL CENTER [id number] [place] [address] [place] Monocytes (Bld) [#/Vol] 0.51 10*3/uL Normal <0.87 [facility] Comment on above: Order Comment: Speci men Type: BLOOD SPECIMENOrdering Facility: [facility] Address: [address] [place] [address] Performed By: #### 5 7021-8 ####[facility] [id number] [place] [address] [place] Monocytes/100 WBC (Bld) 7.4 % Normal [facility] Comment on above: Order Comment: Speci men Type: BLOOD SPECIMENOrdering Facility: [facility] Address: [address] [place] [address] Performed By: #### 5 7021-8 ####[facility] [id number] [place] [address] [place] Neutrophils (Bld) [#/Vol] 4.22 10*3/uL Normal 1.45-7.50 [facility] Comment on above: Order Comment: Speci men Type: BLOOD SPECIMENOrdering Facility: [facility] Address: [address] [place] [address] Performed By: #### 5 7021-8 ####[facility] ASHLEYMARIANNELIA [id number] [place] [address] [place] [facility] Neutrophils/100 WBC (Bld) 61.4 % Normal [facility] Comment on above: Order Comment: Speci men Type: BLOOD SPECIMENOrdering Facility: [facility] Address: [address] [place] [address] Performed By: #### 5 7021-8 ####[facility] HOSPITALJONATHANLIA [id number] [place] [address] [place] Nucleated RBC (Bld) [#/Vol] 10*3/uL Normal <0.01 [facility] Comment on above: Order Comment: Speci men Type: BLOOD SPECIMENOrdering Facility: [facility] Address: [address] [place] [address] Performed By: #### 5 7021-8 ####[facility] HOSPITALNCLIA [id number] [place] [address] [place] Nucleated RBC/100 WBC (Bld) [Ratio] 0.0 /100 WBC Normal [facility] Comment on above: Order Comment: Speci men Type: BLOOD SPECIMENOrdering Facility: [facility] Address: [address] [place] [address] Performed By: #### 5 7021-8 ####[facility] CENTERLIA [id number] [place] [address] [place] Platelet mean volume (Bld) [Entitic vol] 9.7 fL Normal 9.0-12.7 [facility] Comment on above: Order Comment: Speci men Type: BLOOD SPECIMENOrdering Facility: [facility] Address: [address] [place] [address] Performed By: #### 5 7021-8 ####[facility] CENTERLIA [id number] [place] [address] [place] Platelets (Bld) [#/Vol] 233 10*3/uL Normal 150-400 [facility] Comment on above: Order Comment: Speci men Type: BLOOD SPECIMENOrdering Facility: [facility] Address: [address] [place] [address] Performed By: #### 5 7021-8 ####[facility] HOSPITALNCWILLAA [id number] [place] [address] [place] RBC (Bld) [#/Vol] 4.79 10*6/uL Normal 3.90-5.20 [facility] Comment on above: Order Comment: Speci men Type: BLOOD SPECIMENOrdering Facility: [facility] Address: [address] [place] [address] Performed By: #### 5 7021-8 ####[facility] HOSPITALJONATHANA [id number] [place] [address] [place] WBC (Bld) [#/Vol] 6.87 10*3/uL Normal 3.70-11.00 [facility] Comment on above: Order Comment: Speci men Type: BLOOD SPECIMENOrdering Facility: [facility] Address: [address] [place] [address] Performed By: #### 5 7021-8 ####[facility] HOSPITALNCLIA [id number] [place] [address] [place] Comprehensive metabolic 2000 panelon 01-04-2025 Albumin [Mass/Vol] 4.2 g/dL Normal 3.9-4.9 [facility] Comment on above: Order Comment: Speci men Type: BLOOD SPECIMENOrdering Facility: [facility] Address: [address] [place] [address] Performed By: #### 2 4323-8 ####[facility] HOSPITALNCARIN [id number] [place] [address] [place] ALP [Catalytic activity/Vol] 89 U/L Normal 34-123 [facility] Comment on above: Order Comment: Speci men Type: BLOOD SPECIMENOrdering Facility: [facility] Address: [address] [place] [address] Performed By: #### 2 4323-8 ####[facility] LILIANA MILLTOWNCLIA [id number] [place] [address] [place] ALT [Catalytic activity/Vol] 7 U/L Normal 7-38 [facility] Comment on above: Order Comment: Speci men Type: BLOOD SPECIMENOrdering Facility: [facility] Address: [address] [place] [address] Performed By: #### 2 4323-8 ####[facility] HOSPITALNCLIA [id number] [place] [address] [place] Anion gap [Moles/Vol] 13 mmol/L Normal 8-15 [facility] Comment on above: Order Comment: Speci men Type: BLOOD SPECIMENOrdering Facility: [facility] Address: [address] [place] [address] Performed By: #### 2 4323-8 ####[facility] LILIANAGRACE COTTAGE HOSPITALNCLIA [id number] [place] [address] [place] AST [Catalytic activity/Vol] 12 U/L Low 13-35 [facility] Comment on above: Order Comment: Speci men Type: BLOOD SPECIMENOrdering Facility: [facility] Address: [address] [place] [address] Performed By: #### 2 4323-8 ####[facility] HOSPITALNCLIA [id number] [place] [address] [place] Bilirubin [Mass/Vol] 0.4 mg/dL Normal 0.2-1.3 [facility] Comment on above: Order Comment: Speci men Type: BLOOD SPECIMENOrdering Facility: [facility] Address: [address] [place] [address] Performed By: #### 2 4323-8 ####[facility] LILIANA MILLTOWNCLIA [id number] [place] [address] [place] Calcium [Mass/Vol] 10.0 mg/dL Normal 8.5-10.2 [facility] Comment on above: Order Comment: Speci men Type: BLOOD SPECIMENOrdering Facility: [facility] Address: [address] [place] [address] Performed By: #### 2 4323-8 ####[facility] MILLTOWNCLIA [id number] [place] [address] [place] Chloride [Moles/Vol] 101 mmol/L Normal 98-107 [facility] Comment on above: Order Comment: Speci men Type: BLOOD SPECIMENOrdering Facility: [facility] Address: [address] [place] [address] Performed By: #### 2 4323-8 ####[facility] MILLTOWNCLIA [id number] [place] [address] [place] CO2 [Moles/Vol] 25 mmol/L Normal 22-30 [facility] Comment on above: Order Comment: Speci men Type: BLOOD SPECIMENOrdering Facility: [facility] Address: [address] [place] [address] Performed By: #### 2 4323-8 ####[facility] MILLTOWNCLIA [id number] [place] [address] [place] Creatinine [Mass/Vol] 0.90 mg/dL Normal 0.58-0.96 [facility] Comment on above: Order Comment: Speci men Type: BLOOD SPECIMENOrdering Facility: [facility] Address: [address] [place] [address] Performed By: #### 2 4323-8 ####[facility] MILLTOWNCLIA [id number] [place] [address] [place] eGFRcr SerPlBld CKD-EPI 2020 64 mL/min/1.73m??? Normal >=60 [facility] Comment on above: Order Comment: Yecenia whiteside Type: BLOOD SPECIMENOrdering Facility: [facility] Address: [address] [place] [address] Result Comment: Nicolle mated Glomerular Filtration Rate (eGFR) is calculated using the 2020 CKD-EPI creatinine equation. This equation utilizes serum creatinine, sex, and age as parameters. The creatinine assay has traceable calibration to isotope dilution-mass spectrometry. Refer to KDIGO guidelines for clinical interpretation. In patients with unstable renal function, e.g. those with acute kidney injury, the eGFR may not accurately reflect actual GFR. Performed By: #### 2 4323-8 ####[facility] [id number] [place] [address] [place] Glucose [Mass/Vol] 101 mg/dL High 74-99 [facility] Comment on above: Order Comment: Yecenia whiteside Type: BLOOD SPECIMENOrdering Facility: [facility] Address: [address] [place] [address] Result Comment: The [place] Diabetes [employer] (ADA) provides guidance for cutoff values for fasting glucose and random glucose. The ADA defines fasting as no caloric intake for at least 8 hours. Fasting plasma glucose results between 100 to 125 mg/dL indicate increased risk for diabetes (prediabetes).Fasting plasma glucose results greater than or equal to 126 mg/dL meet the criteria for diagnosis of diabetes. In the absence of unequivocal hyperglycemia, results should be confirmed by repeat testing. In a patient with classic symptoms of hyperglycemia or hyperglycemic crisis, random plasma glucose results greater than or equal to 200 mg/dL meet the criteria for diagnosis of diabetes.Reference: Standards of Medical Care in Diabetes 2016, [place] Diabetes Association. Diabetes Care. 2016.39(Suppl 1). Performed By: #### 2 4323-8 ####[facility] [id number] [place] [address] [place] Potassium [Moles/Vol] 3.7 mmol/L Normal 3.7-5.1 [facility] Comment on above: Order Comment: Speci men Type: BLOOD SPECIMENOrdering Facility: [facility] Address: [address] [place] [address] Performed By: #### 2 4323-8 ####[facility] MILLRYDERWOODNCLIA [id number] [place] [address] [place] Protein [Mass/Vol] 6.7 g/dL Normal 6.3-8.0 [facility] Comment on above: Order Comment: Speci men Type: BLOOD SPECIMENOrdering Facility: [facility] Address: [address] [place] [address] Performed By: #### 2 4323-8 ####[facility] HOSPITALNCLI [id number] [place] [address] [place] Sodium [Moles/Vol] 139 mmol/L Normal 136-144 [facility] Comment on above: Order Comment: Speci men Type: BLOOD SPECIMENOrdering Facility: [facility] Address: [address] [place] [address] Performed By: #### 2 4323-8 ####[facility] HOSPITALNCLIA [id number] [place] [address] [place] Urea nitrogen [Mass/Vol] 18 mg/dL Normal 7-21 [facility] Comment on above: Order Comment: Speci men Type: BLOOD SPECIMENOrdering Facility: [facility] Address: [address] [place] [address] Performed By: #### 2 4323-8 ####[facility] [id number] [place] [address] [place] Cortis SerPl-mCncon 01-05-20 25 Cortisol [Mass/Vol] 6.5 ug/dL Normal 4.8-19.5 [facility] Comment on above: Order Comment: Speci men Type: BLOOD SPECIMENOrdering Facility: [facility] Address: [address] [place] [address] Result Comment: Prov ided reference range is from 6-10 AM sample collection time.Cortisol Reference Range: 6-10 AM = 4.8-19.5 ug/dL, 4-8 PM = 2.5-11.9 ug/dL Performed By: #### 3 024-7, 6-3, 2142-09 ####[facility] LABIA [id number] [place] [address] [place] T4 Free SerPl-mCncon 025 Free T4 [Mass/Vol] 1.1 ng/dL Normal 0.9-1.7 [facility] Comment on above: Order Comment: Speci men Type: BLOOD SPECIMENOrdering Facility: [facility] Address: [address] [place] [address] Performed By: #### 3 024-7, 3015-3, 2142-09 ####[facility] LABIA [id number] [place] [address] [place] TSH SerPl-aCncon 01-04-2025 TSH Qn 2.220 m[IU]/L Normal 0.270-4.200 [facility] Comment on above: Order Comment: Speci men Type: BLOOD SPECIMENOrdering Facility: [facility] Address: [address] [place] [address] Performed By: #### 3 024-7, 3, 2142-09 ####[facility] LABIA [id number] [place] [id number] [place] CNOVon 12-31-2024 CNOV Normal [facility] CNPNon 12-28-2024 CNPN Normal [facility] CNPNon 12-23-2024 CNPN Normal [facility] CNPTOUTREACHon 12-22-2024 CNPTOUTREACH Normal [facility] CNPNon 12-17-2024 CNPN Normal [facility] CNPNon 12-09-2024 CNPN Normal [facility] CNOVon 12-07-2024 CNOV Normal [facility] CBC W Auto Differential pane l (Bld)on 11-25-2024 Basophils (Bld) [#/Vol] [facility] Basophils/100 WBC (Bld) 0.2 % [facility] Differential cell count method Nom (Bld) Auto [facility] Eosinophils (Bld) [#/Vol] 0.25 10*3/uL [facility] Eosinophils/100 WBC (Bld) 5.8 % [facility] Erythrocyte distribution width (RBC) [Ratio] 12.5 % 11.5 - 15.0 % [facility] Hematocrit (Bld) [Volume fraction] 45.7 % 36.0 - 46.0 % [facility] Hemoglobin (Bld) [Mass/Vol] 15.4 g/dL 11.5 - 15.5 g/dL [facility] Immature granulocytes (Bld) [#/Vol] [facility] Immature granulocytes/100 WBC (Bld) 0.2 % [facility] Lymphocytes (Bld) [#/Vol] 1.06 10*3/uL [facility] Lymphocytes/100 WBC (Bld) 24.4 % [facility] MCH (RBC) [Entitic mass] 30.8 pg 26.0 - 34.0 pg [facility] MCHC (RBC) [Mass/Vol] 33.7 g/dL 30.5 - 36.0 g/dL [facility] MCV (RBC) [Entitic vol] 91.4 fL 80.0 - 100.0 fL [facility] Monocytes (Bld) [#/Vol] 0.51 10*3/uL [facility] Monocytes/100 WBC (Bld) 11.8 % [facility] Neutrophils (Bld) [#/Vol] 2.50 10*3/uL [facility] Neutrophils/100 WBC (Bld) 57.6 % [facility] Nucleated RBC (Bld) [#/Vol] [facility] Nucleated RBC/100 WBC (Bld) [Ratio] 0.0 % /100 WBC [facility] Platelet mean volume (Bld) [Entitic vol] 10.0 fL 9.0 - 12.7 fL [facility] Platelets (Bld) [#/Vol] 199 10*3/uL [facility] RBC (Bld) [#/Vol] 5.00 10*6/uL 3.90 - 5.2 0 m/uL [facility] WBC (Bld) [#/Vol] 4.34 10*3/uL [facility] Basophils (Bld) [#/Vol] 10*3/uL Normal <0.11 [facility] Comment on above: Order Comment: Speci men Type: BLOOD SPECIMENOrdering Facility: [facility] Address: [address] [place] [address] Performed By: #### 5 7021-8 ####[facility] MILLWNCLIA [id number] [place] [address] [place] Basophils/100 WBC (Bld) 0.2 % Normal [facility] Comment on above: Order Comment: Speci men Type: BLOOD SPECIMENOrdering Facility: [facility] Address: [address] [place] [address] Performed By: #### 5 7021-8 ####[facility]ENTERLIA [id number] [place] [address] [place] Differential cell count method Nom (Bld) Auto Normal [facility] Comment on above: Order Comment: Speci men Type: BLOOD SPECIMENOrdering Facility: [facility] Address: [address] [place] [address] Performed By: #### 5 7021-8 ####[facility] MILLWNCLIA [id number] [place] [address] [place] Eosinophils (Bld) [#/Vol] 0.25 10*3/uL Normal <0.46 [facility] Comment on above: Order Comment: Speci men Type: BLOOD SPECIMENOrdering Facility: [facility] Address: [address] [place] [address] Performed By: #### 5 7021-8 ####[facility] MILLRYDERWOODNCLIA [id number] [place] [address] [place] Eosinophils/100 WBC (Bld) 5.8 % Normal [facility] Comment on above: Order Comment: Speci men Type: BLOOD SPECIMENOrdering Facility: [facility] Address: [address] [place] [address] Performed By: #### 5 7021-8 ####[facility] HOSPITALNCA [id number] [place] [address] [place] Erythrocyte distribution width (RBC) [Ratio] 12.5 % Normal 11.5-15.0 [facility] Comment on above: Order Comment: Speci men Type: BLOOD SPECIMENOrdering Facility: [facility] Address: [address] [place] [address] Performed By: #### 5 7021-8 ####[facility] HOSPITALNCMCKAY-[facility] [id number] [place] [address] [place] Hematocrit (Bld) [Volume fraction] 45.7 % Normal 36.0-46.0 [facility] Comment on above: Order Comment: Speci men Type: BLOOD SPECIMENOrdering Facility: [facility] Address: [address] [place] [address] Performed By: #### 5 7021-8 ####[facility] [id number] [place] [address] [place] Hemoglobin (Bld) [Mass/Vol] 15.4 g/dL Normal 11.5-15.5 [facility] Comment on above: Order Comment: Speci men Type: BLOOD SPECIMENOrdering Facility: [facility] Address: [address] [place] [address] Performed By: #### 5 7021-8 ####[facility] HOSPITALNCLIA [id number] [place] [address] [place] Immature granulocytes (Bld) [#/Vol] 10*3/uL Normal <0.10 [facility] Comment on above: Order Comment: Speci men Type: BLOOD SPECIMENOrdering Facility: [facility] Address: [address] [place] [address] Performed By: #### 5 7021-8 ####[facility] ASHLEYSAUD [id number] [place] [address] [place] Immature granulocytes/100 WBC (Bld) 0.2 % Normal [facility] Comment on above: Order Comment: Speci men Type: BLOOD SPECIMENOrdering Facility: [facility] Address: [address] [place] [address] Performed By: #### 5 7021-8 ####[facility] HOSPITALJONATHANMCKAY-[facility] [id number] [place] [address] [place] Lymphocytes (Bld) [#/Vol] 1.06 10*3/uL Normal 1.00-4.00 [facility] Comment on above: Order Comment: Speci men Type: BLOOD SPECIMENOrdering Facility: [facility] Address: [address] [place] [address] Performed By: #### 5 7021-8 ####[facility] [id number] [place] [address] [place] Lymphocytes/100 WBC (Bld) 24.4 % Normal [facility] Comment on above: Order Comment: Speci men Type: BLOOD SPECIMENOrdering Facility: [facility] Address: [address] [place] [address] Performed By: #### 5 7021-8 ####[facility]ENTERLIA [id number] [place] [address] [place] MCH (RBC) [Entitic mass] 30.8 pg Normal 26.0-34.0 [facility] Comment on above: Order Comment: Speci men Type: BLOOD SPECIMENOrdering Facility: [facility] Address: [address] [place] [address] Performed By: #### 5 7021-8 ####[facility] HOSPITALNCLIA [id number] [place] [address] [place] MCHC (RBC) [Mass/Vol] 33.7 g/dL Normal 30.5-36.0 [facility] Comment on above: Order Comment: Speci men Type: BLOOD SPECIMENOrdering Facility: [facility] Address: [address] [place] [address] Performed By: #### 5 7021-8 ####[facility]ENTERLIA [id number] [place] [address] [place] MCV (RBC) [Entitic vol] 91.4 fL Normal 80.0-100.0 [facility] Comment on above: Order Comment: Speci men Type: BLOOD SPECIMENOrdering Facility: [facility] Address: [address] [place] [address] Performed By: #### 5 7021-8 ####[facility] [id number] [place] [address] [place] Monocytes (Bld) [#/Vol] 0.51 10*3/uL Normal <0.87 [facility] Comment on above: Order Comment: Speci men Type: BLOOD SPECIMENOrdering Facility: [facility] Address: [address] [place] [address] Performed By: #### 5 7021-8 ####[facility] [id number] [place] [address] [place] Monocytes/100 WBC (Bld) 11.8 % Normal [facility] Comment on above: Order Comment: Speci men Type: BLOOD SPECIMENOrdering Facility: [facility] Address: [address] [place] [address] Performed By: #### 5 7021-8 ####[facility] HOSPITALNCLIA [id number] [place] [address] [place] Neutrophils (Bld) [#/Vol] 2.50 10*3/uL Normal 1.45-7.50 [facility] Comment on above: Order Comment: Speci men Type: BLOOD SPECIMENOrdering Facility: [facility] Address: [address] [place] [address] Performed By: #### 5 7021-8 ####[facility]ENTERLIA [id number] [place] [address] [place] Neutrophils/100 WBC (Bld) 57.6 % Normal [facility] Comment on above: Order Comment: Speci men Type: BLOOD SPECIMENOrdering Facility: [facility] Address: [address] [place] [address] Performed By: #### 5 7021-8 ####[facility] [id number] [place] [address] [place] Nucleated RBC (Bld) [#/Vol] 10*3/uL Normal <0.01 [facility] Comment on above: Order Comment: Speci men Type: BLOOD SPECIMENOrdering Facility: [facility] Address: [address] [place] [address] Performed By: #### 5 7021-8 ####[facility] [id number] [place] [address] [place] Nucleated RBC/100 WBC (Bld) [Ratio] 0.0 /100 WBC Normal [facility] Comment on above: Order Comment: Speci men Type: BLOOD SPECIMENOrdering Facility: [facility] Address: [address] [place] [address] Performed By: #### 5 7021-8 ####[facility] HOSPITALNCMCKAY-[facility] [id number] [place] [address] [place] Platelet mean volume (Bld) [Entitic vol] 10.0 fL Normal 9.0-12.7 [facility] Comment on above: Order Comment: Speci men Type: BLOOD SPECIMENOrdering Facility: [facility] Address: [address] [place] [address] Performed By: #### 5 7021-8 ####[facility] NANCYNCLIA [id number] [place] [address] [place] Platelets (Bld) [#/Vol] 199 10*3/uL Normal 150-400 [facility] Comment on above: Order Comment: Speci men Type: BLOOD SPECIMENOrdering Facility: [facility] Address: [address] [place] [address] Performed By: #### 5 7021-8 ####[facility] ASHLEYRYDERWOODNCLIA [id number] [place] [address] [place] RBC (Bld) [#/Vol] 5.00 10*6/uL Normal 3.90-5.20 [facility] Comment on above: Order Comment: Speci men Type: BLOOD SPECIMENOrdering Facility: [facility] Address: [address] [place] [address] Performed By: #### 5 7021-8 ####[facility] HOSPITALNCWILLAA [id number] [place] [address] [place] WBC (Bld) [#/Vol] 4.34 10*3/uL Normal 3.70-11.00 [facility] Comment on above: Order Comment: Speci men Type: BLOOD SPECIMENOrdering Facility: [facility] Address: [address] [place] [address] Performed By: #### 5 7021-8 ####[facility] HOSPITALNCLIA [id number] [place] [address] [place] CNOVSPon 11-25-2024 CNOVSP Normal [facility] CNPNon 11-25-2024 CNPN Normal [facility] metabolic 2000 panelOrdered By: Zandra Del Angel on 11-25-2024 Albumin [Mass/Vol] 4.3 g/dL 3.9 - 4.9 g/dL [facility] ALP [Catalytic activity/Vol] 96 U/L 34 - 123 U/L [facility] ALT [Catalytic activity/Vol] 10 U/L 7 - 38 U/L [facility] Anion gap [Moles/Vol] 12 mmol/L 8 - 15 mmol/L [facility] AST [Catalytic activity/Vol] 14 U/L 13 - 35 U/L [facility] Bilirubin [Mass/Vol] 0.5 mg/dL 0.2 - 1 .3 mg/dL [facility] Calcium [Mass/Vol] 10.0 mg/dL 8.5 - 10. 2 mg/dL [facility] Chloride [Moles/Vol] 104 mmol/L 98 - 10 7 mmol/L [facility] CO2 [Moles/Vol] 19 mmol/L Low 22 - 30 mmol/L [facility] Creatinine [Mass/Vol] 0.88 mg/dL 0.58 - 0.96 mg/dL [facility] GFR/1.73 sq M.predicted among non-blacks MDRD (S/P/Bld) [Vol rate/Area] 65 mL/min/{1.73_m2} - PINF [facility] Comment on above: Estimated Glomerular Filtration Rate (eGFR) is calculated using the 2020 CKD-EPI creatinine equation. This equation utilizes serum creatinine, sex, and age as parameters. The creatinine assay has traceable calibration to isotope dilution-mass spectrometry. Refer to KDIGO guidelines for clinical interpretation. In patients with unstable renal function, e.g. those with acute kidney injury, the eGFR may not accurately reflect actual GFR. Glucose [Mass/Vol] 94 mg/dL 74 - 99 mg/dL [facility] Comment on above: The [place] Diab[employer] s Association (ADA) provides guidance for cutoff values for fasting glucose and random glucose. The ADA defines fasting as no caloric intake for at least 8 hours. Fasting plasma glucose results between 100 to 125 mg/dL indicate increased risk for diabetes (prediabetes). Fasting plasma glucose results greater than or equal to 126 mg/dL meet the criteria for diagnosis of diabetes. In the absence of unequivocal hyperglycemia, results should be confirmed by repeat testing. In a patient with classic symptoms of hyperglycemia or hyperglycemic crisis, random plasma glucose results greater than or equal to 200 mg/dL meet the criteria for diagnosis of diabetes. Reference: Standards of Medical Care in Diabetes 2016, [place] Diabetes [employer]. Diabetes Care. 2016.39(Suppl 1). Interpretation and review of laboratory results Abnormal [facility] Potassium [Moles/Vol] 3.9 mmol/L 3.7 - 5.1 mmol/L [facility] Protein [Mass/Vol] 7.0 g/dL 6.3 - 8.0 g/dL [facility] Sodium [Moles/Vol] 135 mmol/L Low 136 - 144 mmol/L [facility] Urea nitrogen [Mass/Vol] 20 mg/dL 7 - 21 mg/dL [facility] Comprehensive metabolic 2000 panelon 11-25-2024 Albumin [Mass/Vol] 4.3 g/dL Normal 3.9-4.9 [facility] Comment on above: Order Comment: Speci stevo Type: BLOOD SPECIMENOrdering Facility: [facility] Address: [address] [place] [address] Performed By: #### 2 4323-8 ####[facility] MILLWNCLIA [id number] [place] [address] [place] ALP [Catalytic activity/Vol] 96 U/L Normal 34-123 [facility] Comment on above: Order Comment: Pasqualei stevo Type: BLOOD SPECIMENOrdering Facility: [facility] Address: [address] [place] [address] Performed By: #### 2 4323-8 ####[facility] MILLWNCLIA [id number] [place] [address] [place] ALT [Catalytic activity/Vol] 10 U/L Normal 7-38 [facility] Comment on above: Order Comment: Speci men Type: BLOOD SPECIMENOrdering Facility: [facility] Address: [address] [place] [address] Performed By: #### 2 4323-8 ####[facility] LILIANA MILLTOWNCLIA [id number] [place] [address] [place] Anion gap [Moles/Vol] 12 mmol/L Normal 8-15 [facility] Comment on above: Order Comment: Speci men Type: BLOOD SPECIMENOrdering Facility: [facility] Address: [address] [place] [address] Performed By: #### 2 4323-8 ####[facility] HEIDI [id number] [place] [address] [place] AST [Catalytic activity/Vol] 14 U/L Normal 13-35 [facility] Comment on above: Order Comment: Speci men Type: BLOOD SPECIMENOrdering Facility: [facility] Address: [address] [place] [address] Performed By: #### 2 4323-8 ####[facility] ASHLEYGabrieleNCWILLAA [id number] [place] [address] [place] Bilirubin [Mass/Vol] 0.5 mg/dL Normal 0.2-1.3 [facility] Comment on above: Order Comment: Speci men Type: BLOOD SPECIMENOrdering Facility: [facility] Address: [address] [place] [address] Performed By: #### 2 4323-8 ####[facility] HOSPITALNCLIA [id number] [place] [address] [place] Calcium [Mass/Vol] 10.0 mg/dL Normal 8.5-10.2 [facility] Comment on above: Order Comment: Speci men Type: BLOOD SPECIMENOrdering Facility: [facility] Address: [address] [place] [address] Performed By: #### 2 4323-8 ####[facility] HOSPITALNCLIA [id number] [place] [address] [place] Chloride [Moles/Vol] 104 mmol/L Normal 98-107 [facility] Comment on above: Order Comment: Speci men Type: BLOOD SPECIMENOrdering Facility: [facility] Address: [address] [place] [address] Performed By: #### 2 4323-8 ####[facility] MILLTOWNCLIA [id number] [place] [address] [place] CO2 [Moles/Vol] 19 mmol/L Low 22-30 [facility] Comment on above: Order Comment: Speci men Type: BLOOD SPECIMENOrdering Facility: [facility] Address: [address] [place] [address] Performed By: #### 2 4323-8 ####[facility]AL SPRINGSWNCLIA [id number] [place] [address] [place] Creatinine [Mass/Vol] 0.88 mg/dL Normal 0.58-0.96 [facility] Comment on above: Order Comment: Speci men Type: BLOOD SPECIMENOrdering Facility: [facility] Address: [address] [place] [address] Performed By: #### 2 4323-8 ####[facility] HOSPITALNCLIA [id number] [place] [address] [place] eGFRcr SerPlBld CKD-EPI 2020 65 mL/min/1.73m??? Normal >=60 [facility] Comment on above: Order Comment: Speci men Type: BLOOD SPECIMENOrdering Facility: [facility] Address: [address] [place] [address] Result Comment: Nicolle mated Glomerular Filtration Rate (eGFR) is calculated using the 2020 CKD-EPI creatinine equation. This equation utilizes serum creatinine, sex, and age as parameters. The creatinine assay has traceable calibration to isotope dilution-mass spectrometry. Refer to KDIGO guidelines for clinical interpretation. In patients with unstable renal function, e.g. those with acute kidney injury, the eGFR may not accurately reflect actual GFR. Performed By: #### 2 4323-8 ####[facility] ASHLEYWNCLIA [id number] [place] [address] [place] Glucose [Mass/Vol] 94 mg/dL Normal 74-99 [facility] Comment on above: Order Comment: Speci men Type: BLOOD SPECIMENOrdering Facility: [facility] Address: [address] [place], [place] [id number] Result Comment: The [place] Diabetes Association (ADA) provides guidance for cutoff values for fasting glucose and random glucose. The ADA defines fasting as no caloric intake for at least 8 hours. Fasting plasma glucose results between 100 to 125 mg/dL indicate increased risk for diabetes (prediabetes).Fasting plasma glucose results greater than or equal to 126 mg/dL meet the criteria for diagnosis of diabetes. In the absence of unequivocal hyperglycemia, results should be confirmed by repeat testing. In a patient with classic symptoms of hyperglycemia or hyperglycemic crisis, random plasma glucose results greater than or equal to 200 mg/dL meet the criteria for diagnosis of diabetes.Reference: Standards of Medical Care in Diabetes 2016, [place] [employer]. Diabetes Care. 2016.39(Suppl 1). Performed By: #### 2 4323-8 ####[facility] [id number] [place] [address] [place] Potassium [Moles/Vol] 3.9 mmol/L Normal 3.7-5.1 [facility] Comment on above: Order Comment: Yecenia whiteside Type: BLOOD SPECIMENOrdering Facility: [facility] Address: [address] [place] [address] Performed By: #### 2 4323-8 ####[facility]ENTERLI [id number] [place] [address] [place] Protein [Mass/Vol] 7.0 g/dL Normal 6.3-8.0 [facility] Comment on above: Order Comment: Speci men Type: BLOOD SPECIMENOrdering Facility: [facility] Address: [address] [place], [place] [address] Performed By: #### 2 4323-8 ####[facility]ENTERLI [id number] [place] [address] [place] Sodium [Moles/Vol] 135 mmol/L Low 136-144 [facility] Comment on above: Order Comment: Speci men Type: BLOOD SPECIMENOrdering Facility: [facility] Address: [address] [place] [address] Performed By: #### 2 4323-8 ####[facility] [id number] [place] [address] [place] Urea nitrogen [Mass/Vol] 20 mg/dL Normal 7-21 [facility] Comment on above: Order Comment: Speci men Type: BLOOD SPECIMENOrdering Facility: [facility] Address: [address] [place] [address] Performed By: #### 2 4323-8 ####[facility] [id number] [place] [address] [place] EPO SerPl-aCncon 11-25-2024 Erythropoietin (EPO) Qn 12.7 mIU/mL Normal 2.6-18.5 [facility] Comment on above: Order Comment: Speci [facility] Type: BLOOD SPECIMENOrdering Facility: [facility] Address: [address] [place] [address] Performed By: #### 1 5061-5 ####[facility] LABCLIA [id number] [place] [address] [place] HBV core Ab Ser Qlon 025 HBV core Ab Ql (S) Negative Normal Negative [facility] Comment on above: Order Comment: Speci [facility] Type: BLOOD SPECIMENOrdering Facility: [facility] Address: [address] [place] [address] Result Comment: No e vidence of current or past infection with Hepatitis B virus. Should recent infection be suspected, repeat testing may be considered 3-4 weeks after this draw. Performed By: #### 2 2322-2, 5195-3, 83691-0 ####[facility] [id number] [place] [id number] [place] HBV surface Ab Ql (S)on 08-1 3-2025 HBV surface Ab Qn (S) <8.00 Normal [facility] Comment on above: Order Comment: Speci men Type: BLOOD SPECIMENOrdering Facility: [facility] Address: [address] [place] [address] Result Comment: <8 m IU/mL: No serological evidence of immunity to Hepatitis B Virus.>/= 8 to <12 mIU/mL: No serological evidence of immunity to Hepatitis B Virus.>/= 12 mIU/mL: Consistent with serological evidence of immunity to Hepatitis B Virus. Performed By: #### 2 2322-2, 5195-3, 33142-4 ####[facility] LABIA [id number] [place] [address] [place] HBV surface Ab Ser Qlon 11-13 HBV surface Ab Ql (S) Negative Normal [facility] Comment on above: Order Comment: Speci men Type: BLOOD SPECIMENOrdering Facility: [facility] Address: [address] [place] [address] Result Comment: No s erological evidence of immunity to Hepatitis B Virus. Performed By: #### 2 2322-2, 5195-3, 90600-1 ####[facility] LABIA [id number] [place] [address] [place] HBV surface Ag Ser Qlon 11-13 HBV surface Ag Ql (S) Negative Normal Negative [facility] Comment on above: Order Comment: Speci men Type: BLOOD SPECIMENOrdering Facility: [facility] Address: [address] [place] [address] Performed By: #### 2 2322-2, 5195-3, 18766-8 ####[facility] LABIA [id number] [place] [address] [place] HCV Ab Ser Qlon 11-25-2024 HCV Ab Ql (S) Negative Normal Negative [facility] Comment on above: Order Comment: Speci men Type: BLOOD SPECIMENOrdering Facility: [facility] Address: [address] [place] [address] Result Comment: The result suggests no evidence of infection with Hepatitis C virus. Should recent infection be suspected, repeat testing may be considered 4-6 weeks after this draw. Performed By: #### 1 6128-1 ####[facility] LABCLJOAQUIN [id number] [address] [place] [id number] [facility] CNPNon 11-17-2024 CNPN Telephone (AKPRAD) ----- DEANGELO BEACH ([id number]) 1940 F Date Time Provider Department 11/17/24 LATRICE REAGAN During your visit today, we recorded the following information about you: Latrice Reagan MD 11/17/2024 5:37 PM Signed I have called the patient to discuss pathology results, however, could not get her on the phone. I discussed results with her oncologist/referring provider, Dr. Velarde, who will be seeing her in clinic and will discuss results with her. Latrice Reagan MD Allergies As of Date: 11/17/2024 Noted Allergy Reaction CAT DANDER 10/24/2023 4 - Hives ZANAFLEX (TIZANIDINE) 03/10/2024 4 - Hives LATEX 03/03/2015 2 - Rash Date Reviewed: 11/05/2024 Reviewed by: Haylie Flores, RN - Fully Assessed Prescriptions as of 11/17/2024 - metoprolol succinate ER (TOPROL XL) 25 mg 24 hr tablet Take 12.5 mg by mouth. - albuterol HFA (PROVENTIL HFA, VENTOLIN HFA) 90 mcg/actuation inhaler Inhale 2 Puffs as instructed every 6 hours as needed for wheezing/shortness of breath. - pravastatin (PRAVACHOL) 40 mg tablet Take 1 tablet by mouth once daily. - PARoxetine (PAXIL) 40 mg tablet Take 1 tablet by mouth once daily. - montelukast (SINGULAIR) 10 mg tablet Take 1 tablet by mouth once daily. - vit A/vit C/vit E/zinc/copper (ICAPS AREDS ORAL) Take 1 tablet by mouth two times a day. 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/05/2024 Encounter Status:Closed by LATRICE REAGAN on 11/17/24 [facility] ANES POSTPROC EVALon 025 ANES POSTPROC EVAL HNO ID: [id number] Author: MARGUERITE RAMÍREZ MD Service: Anesthesiology Author Type: Physician Type: Anesthesia Postprocedure Evaluation Filed: 11/05/2024 13:13 Note Text: POST ANESTHESIA EVALUATION NOTE : 1940 Procedure Summary Date: 11/05/24 Room / Location: [facility] Anesthesia Start: 1045 Anesthesia Stop: 1202 Procedure: EGD - THERAPEUTIC, EUS, OR TUBE INTERVENTIONS Diagnosis: Cancer of kidney, 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 Neurological Status: aware and responsive. Pulmonary Status: breathing comfortably on supplemental oxygen Airway Control: returned to baseline unsupported. Cardiovascular Status: stable. Pain Management: clinically adequate Postoperative Hydration: acceptable. Intraoperative Events: no significant anesthesia events Post Operative Nausea/Vomiting Status: no significant post operative nausea or vomiting Recommendation: continue current plan of care. Anesthesia Observations No Documentation SIGNATURE: Marguerite Ramírez MD PATIENT NAME: Deangelo Beach DATE: November 05, 2024 TIME: 1:13 PM CSN: [id number] Normal [facility] ANES PRE-OPon 11-05-2024 ANES PRE-OP HNO ID: [id number] Author: MARGUERITE RAMÍREZ MD Service: Anesthesiology Author Type: Physician Type: Anesthesia Preprocedure Evaluation Filed: 11/05/2024 09:11 Note Text: ANESTHESIOLOGY DAY OF SURGERY NOTE : 1940 Procedure Information Date/Time: 11/05/24 1000 Scheduled providers: Latrice Reagan MD Procedure: EGD - THERAPEUTIC, EUS, OR TUBE INTERVENTIONS Location: [facility] Estimated body mass index is 24.58 kg/m? as calculated from the following: Height as of 03/10/24: 167.2 cm (5' 5.83). Weight as of 09/17/24: 68.7 kg (151 lb 8 oz). Most recent hematocrit and potassium results: Hematocrit 47.4 09/02/2024 Potassium 4.2 09/02/2024 Relevant Problems CARDIO (+) Hypertension -RENAL (+) Cancer of kidney, right (HCC) PULMONARY (+) Asthma (HCC) I - PHYSICAL EVALUATION AIRWAY Patient intubated: No. Tracheostomy tube not present Mallampati: II. TM distance: >3 FB. Neck ROM: full ROM without neurological symptoms. Mouth opening: adequate. Short neck: no. Thick neck: no DENTAL Dental findings: poor dentition. Additional exam findings: no II - ANESTHESIA PLAN ASA Score: 3 Anesthetic Plan: MAC NPO Status: adequate Beta Portia Monitoring Plan Monitoring plan: standard ASA. Post Procedure Analgesic Plan Postoperative analgesic plan: parenteral or oral opioids. Informed Consent Anesthetic risks, benefits, alternatives, personnel and consent discussed: yes. Patient / Responsible Constitution Party agrees to proceed: yes Patient / Surrogate agrees to blood products: blood products not planned DNR status not reviewed with patient and/or family prior to surgery. Significant changes in the patient condition since the History and Physical, not otherwise documented in primary service progress note: no. Potential Anesthesia issues that may suggest increased risk of complications or contraindication to planned procedure: potential difficult IV access. No vitals data found for the desired time range. Outpatient Medications as of 11/05/2024 Medication Sig albuterol HFA (PROVENTIL HFA, VENTOLIN HFA) 90 mcg/actuation inhaler Inhale 2 Puffs as instructed every 6 hours as needed for wheezing/shortness of breath. pravastatin (PRAVACHOL) 40 mg tablet Take 1 tablet by mouth once daily. PARoxetine (PAXIL) 40 mg tablet Take 1 tablet by mouth once daily. montelukast (SINGULAIR) 10 mg tablet Take 1 tablet by mouth once daily. vit A/vit C/vit E/zinc/copper (ICAPS AREDS ORAL) Take 1 tablet by mouth two times a day. No current facility-administered medications on file as of 11/05/2024. I have interviewed and examined the patient. I have reviewed the medical record and/or the pre-anesthesia evaluation, pertinent labs, and test results. This contains updated information obtained within 48 hours of Surgery/Procedure. SIGNATURE: Marguerite Ramírez MD PATIENT NAME: Deangelo Beach DATE: November 05, 2024 TIME: 9:11 AM CSN: [id number] Normal [facility] CYTOLOGY NON-GYNon ADEQUACY INTERPRETATION Normal [facility] Comment on above: Order Comment: Speci men Type: SPECIMEN OBTAINED BY ASPIRATION [facility] Address: [address] [place] [address] Result Comment: A: P ancreatic Body Mass #1 Rare atypical,reactive #2-4 Non-diagnostic . B: Pancreatic Body Mass and Body junction mass #1-2 Non-diagnostic The above adequacy interpretation(s) were performed by cytopathologist, Dr. Jeri Meza. Each letter in the above intra-procedural assessment refers to a unique site. The specific site is indicated in the final diagnosis portion of the report. Each number in this assessment references a discrete evaluation episode. Intra-procedural assessment performed at [facility], [address] [place] [address] Performed By: #### C YTONON #### [facility] CLIA [id number] [address] [place] [address] AP DISCLAIMER Normal [facility] Comment on above: Order Comment: Speci men Type: SPECIMEN OBTAINED BY ASPIRATION [facility] Address: [address] [place], [place] [address] [address] Result Comment: Robyn ford Developed Test (LDT) Disclaimer: Performance characteristics of immunohistochemical, immunofluorescent, and chromogenic in-situ hybridization tests have been determined by the performing laboratory within [facility]'s [facility] Pathology and Laboratory Medicine Department ([facility], [facility], [facility], [facility], [facility], or [facility]) in a manner consistent with CLIA requirements. One or more of these tests may not have been cleared or approved by the FDA. [facility] is regulated under CLIA as qualified to perform high-complexity testing. These tests are used for clinical purposes. These should not be regarded as investigational or for research. Positive and negative controls stain appropriately. Performed By: #### C YTONON #### [facility] CLIA [id number] [address] [place] [address] CASE REPORT Normal [facility] Comment on above: Order Comment: Speci men Type: SPECIMEN OBTAINED BY ASPIRATION [facility] Address: [facility] [place] [id number] Result Comment: [facility] Cytology Report Case: [id number] Authorizing Provider: Latrice Reagan, Collected: 11/05/2024 11:07 AM Ordering Location: [facility] Received: 11/06/2024 06:56 AM Pathologist: Jeri eMza MD Specimens: A) - Pancreas, pancreatic body mass B) - Pancreas, pancreatic body and head junction Performed By: #### C YTONON #### [facility] CLIA [id number] [address] [place] [address] DIAGNOSIS COMMENT The aspirate from nubia th the parts are of low cellularity and show similar cytomorphological features. Immunohistochemical stains were attempted on cell block B. The atypical cells are positive with CAM 5.2 and show focal positivity with PAX 8. Cytokeratin AE1-3, CEA and CK7 are negative. In a patient with a prior history of metastatic carcinoma from a renal primary the morphological features and the immunoprofile favors renal origin. Public Safety Director slides were reviewed in consultation with Dr. Gerhard Omalley who concurs. Clinical and endoscopic correlation is recommended. Normal [facility] Comment on above: Order Comment: Speci men Type: SPECIMEN OBTAINED BY ASPIRATION [facility] Address: [address] [place] [address] Performed By: #### C YTONON #### [facility] CLIA [id number] [address] [place] [address] FINAL DIAGNOSIS Normal [facility] Comment on above: Order Comment: Speci men Type: SPECIMEN OBTAINED BY ASPIRATION [facility] Address: [address] [place] [address] Result Comment: A - Pancreas, FNA - pancreatic body mass Atypical cells, suspicious for metastatic carcinoma. See comment. B - Pancreas, FNA - pancreatic body and head junction Atypical cells, suspicious for metastatic carcinoma. See comment. The following cell blocks were associated with this case: A1 Cell Block, Formalin Fixed B1 Cell Block, Formalin Fixed at 1235 EDT Performed By: #### C YTONON #### [facility] CLIA [id number] [address] [place] [address] FINAL PERFORMING LAB Normal [facility] Comment on above: Order Comment: Speci men Type: SPECIMEN OBTAINED BY ASPIRATION [facility] Address: [address] [place] [address] Result Comment: Tech nical component, bat boy/girl screening performed at: [facility], [address] [place] [address] CLIA: [id number] Diagnostic interpretation performed at: [facility], [address] [place] [address] CLIA# [id number] Chief Electrician: Nigel Mcdonald MD Performed By: #### C YTONON #### [facility] CLIA [id number] [address] GROSS DESCRIPTION A. Pancreas Normal [facility] Comment on above: Order Comment: Yecenia whiteside Type: SPECIMEN OBTAINED BY ASPIRATION [facility] Address: [address], [place] [address] Result Comment: 30 c c clear light pink CytoLyt . ThinPrep and Cell Block prepared and 8 smears (4 air dried and 4 fixed). B. Pancreas 30 cc clear light pink CytoLyt . ThinPrep and Cell Block prepared and 4 smears (2 air dried and 2 fixed). Performed By: #### C YTONON #### [facility] CLIA [id number] [address] [place] EGD Study observation Narrat iveon 11-05-2024 [facility] Gastrointestinal Endoscopy Patient Name: Deangelo Beach Procedure Date: 11/05/2024 10:37 AM Date of : 1940 Admit Type: Outpatient Room: [place] [address] Gender: Female Note Status: Finalized Attending MD: Latrice Reagan MD, [id number] Procedure: Upper EUS Indications: Suspected mass in pancreas on CT scan Providers: Latrice Reagan MD Patient Profile: Refer to note in patient chart for documentation of history and physical. Referring Physician: Spencer Velarde (Referring MD) Medicines: Monitored Anesthesia Care Complications: No immediate complications. Procedure: Pre-Anesthesia Assessment: - Prior to the procedure, a History and Physical was performed, and patient medications and allergies were reviewed. The patient is competent. The risks and benefits of the procedure and the sedation options and risks were discussed with the patient. All questions were answered and informed consent was obtained. Patient identification and proposed procedure were verified by the physician, the nurse and the anesthesiologist in the procedure room. Mental Status Examination: alert and oriented. Airway Examination: normal oropharyngeal airway and neck mobility. Respiratory Examination: clear to auscultation. CV Examination: normal. Prophylactic Antibiotics: The patient does not require prophylactic antibiotics. Prior Anticoagulants: The patient has taken no anticoagulant or antiplatelet agents. ASA Grade Assessment: III - A patient with severe systemic disease. After reviewing the risks and benefits, the patient was deemed in satisfactory condition to undergo the procedure. The anesthesia plan was to use monitored anesthesia care (MAC). Immediately prior to administration of medications, the patient was re-assessed for adequacy to receive sedatives. The heart rate, respiratory rate, oxygen saturations, blood pressure, adequacy of pulmonary ventilation, and response to care were monitored throughout the procedure. The physical status of the patient was re-assessed after the procedure. After obtaining informed consent, the endoscope was passed under direct vision. Throughout the procedure, the patient's blood pressure, pulse, and oxygen saturations were monitored continuously. The Endosonoscope was introduced through the mouth, and advanced to the second part of duodenum. I was present and participated during the entire procedure, including non-juárez portions, and during the administration and monitoring of Moderate Sedation. The Endoscope was introduced through the mouth, and advanced to the second part of duodenum. I was present and participated during the entire procedure, including non-juárez portions, and during the administration and monitoring of Moderate Sedation. After obtaining informed consent, the endoscope was passed under direct vision. Throughout the procedure, the patient's blood pressure, pulse, and oxygen saturations were monitored continuously.The upper EUS was accomplished without difficulty. The patient tolerated the procedure well. Moderate Sedation: An independent trained observer was present and continuously monitored the patient. Findings: ENDOSCOPIC FINDING: : A widely patent and non-obstructing Schatzki ring was found at the gastroesophageal junction. The entire examined stomach was normal. A single 6 mm sessile polyp with no bleeding was found in the second portion of the du (more content not included)... PROVATION [facility] Radiology Study observation (narrative) [facility] HISTORY PHYSICALon HISTORY PHYSICAL HNO ID: [id number] Author: MARIA T AMADO APRN.STACK CLERK Service: ? Author Type: Nurse Practitioner Type: H&P Filed: 11/05/2024 09:30 Note Text: HISTORY AND PHYSICAL EXAMINATION SERVICE DATE: 11/05/2024 SERVICE TIME: 9:09 AM PRIMARY CARE PHYSICIAN: Solis Lambetr MD REASON FOR VISIT: Deangelo Beach is a 84 year old female who is scheduled for EGD at the request of Dr. Spencer Velarde for routine HANDP. The reason for this visit is to perform a comprehensive review of the patient's past medical history, assess their current health status and obtain any additional testing required based on anesthesia guidelines. We will also identify any potential anesthesia problems or contraindications to the planned procedure. 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 Patient had h/o RCC s/p right nephrectomy in 2009, recent abdominal pelvic CT found 3 pancreatic lesions and lymph node biopsy with bronchoscopy found metastatic deposit. Here to have EUS with potential biopsy. Patient denies any N/V, diarrhea or constipation. Denies any abdominal pain. Denies any melena, hematochezia, or hematemesis. Patient has no known family history of Esophageal cancer, Colon cancer or other Gastric cancer. Patient agreed to planned procedure. METS: Climb a flight of stairs or walk up a hill (5.50 METs) Patient denies any CP/SOB with above activity. PAST MEDICAL HISTORY Diagnosis Date SALMA (acute kidney injury) Asthma (HCC) Cholelithiasis Chronic lower back pain Diverticulosis Environmental and seasonal allergies Generalized anxiety disorder History of renal cell cancer 2009 Hypercholesterolemia Hypertension IBS (irritable bowel syndrome) Macular degeneration Mediastinal mass Multiple renal cysts Onychomycosis PAST SURGICAL HISTORY Procedure Laterality Date PAST SURGICAL HISTORY OF 03/06/2024 bronchoscopy with biopsy of mediastinal mass REMV KIDNEY/URETER,SAME INCIS Right VAGINAL HYSTERECTOMY FAMILY HISTORY Problem Relation Age of Onset Macular Degen Mother Hypertension Mother Heart Attack Father Hyperlipidemia Father Hyperlipidemia Sister Hypertension Sister Hyperlipidemia Brother Macular Degen Brother SOCIAL HISTORY: Social History Tobacco Use Smoking status: Never Smokeless tobacco: Never Vaping Use Vaping status: Never Used Substance Use Topics Alcohol use: Never Drug use: Never Prior to Admission medications as of 11/05/24 0917 Medication Sig Last Dose Taking metoprolol succinate ER (TOPROL XL) 25 mg 24 hr tablet Take 12.5 mg by mouth. 11/05/2024 at 5:00 AM Yes albuterol HFA (PROVENTIL HFA, VENTOLIN HFA) 90 mcg/actuation inhaler Inhale 2 Puffs as instructed every 6 hours as needed for wheezing/shortness of breath. pravastatin (PRAVACHOL) 40 mg tablet Take 1 tablet by mouth once daily. PARoxetine (PAXIL) 40 mg tablet Take 1 tablet by mouth once daily. montelukast (SINGULAIR) 10 mg tablet Take 1 tablet by mouth once daily. vit A/vit C/vit E/zinc/copper (ICAPS AREDS ORAL) Take 1 tablet by mouth two times a day. No medication comments found. ALLERGIES Allergen Reactions Cat Dander Hives Zanaflex [Tizanidin* Hives Latex Rash REVIEW OF SYSTEMS: PAIN ASSESSMENT: Pain Pain Level: 0 Pain Assessment: Assessment Tool: Verbal (Numeric Rating or Visual Analog Scale) General: Denies fever, chills, and unexpected weight change. Neuro: Denies dizziness and headaches. Respiratory: Positive for Asthma. No history of current cough or dyspnea, or pneumonia in the past 6 weeks. Cardiovascular: Positive for: HLD. No history of angina, CHF, NC, cardiac surgery or stents. Denies chest pain or palpations. GI: See HPI. : Denies dysuria. Endocrine: No history of diabetes or thyroid conditions. + pancreatic lesions Hematology: Denies history of bleeding or clotting disorder. No known autoimmune disorders. Psych: Denies anxiety/depression. Musculoskeletal: Denies joint pain and swelling. Skin: Denies open sores and rashes. Objective PHYSICAL EXAM: VITALS: BP 146/77 Pulse 80 Temp (Src) 98.6 (Temporal) Resp 26 SpO2 98% O2 Therapy: Room Air General: NAD. Cooperative. Skin: Skin is warm, no rashes, and no open sores. HEENT: Normocephalic. Cardiovascular: Normal S1 AND S2. No murmur. Lungs: CTA Bilaterally. No respiratory distress. Abdomen: Soft. Pos BS x4quad Extremities: No edema. Neurological: Alert and oriented to person, place, and time. Pulses: radial pulses +2 Diagnostic tests reviewed for today's visit: Lab Value (more content not included)... Normal [facility] Pathology biopsy report Juan (Tiss)on 11-05-2024 AP DISCLAIMER Normal [facility] Comment on above: Order Comment: Speci men Type: TISSUE SPECIMEN Ordering Facility: [facility] Address: [address] [place] [address] Result Comment: Robyn ford Developed Test (LDT) Disclaimer: Performance characteristics of immunohistochemical, immunofluorescent, and chromogenic in-situ hybridization tests have been determined by the performing laboratory within [facility]'s [facility] Pathology and Laboratory Medicine Department ([facility], [facility], [facility], [facility], [facility], or [facility]) in a manner consistent with CLIA requirements. One or more of these tests may not have been cleared or approved by the FDA. [facility] is regulated under CLIA as qualified to perform high-complexity testing. These tests are used for clinical purposes. These should not be regarded as investigational or for research. Positive and negative controls stain appropriately. Performed By: #### 6 6121-5 #### [facility] CLIA [id number] [address] CASE REPORT Normal [facility] Comment on above: Order Comment: Speci men Type: TISSUE SPECIMEN Ordering Facility: [facility] Address: [address] [place] [address] Result Comment: Surg ica Pathology Report Case: [id number] Authorizing Provider: Latrice Reagan, Collected: 11/05/2024 11:56 AM Ordering Location: [facility] Received: 11/06/2024 11:01 AM Pathologist: Fei Ortega MD Specimen: Small Bowel, Polyp Performed By: #### 6 6121-5 #### [facility] CLIA [id number] [address] FINAL DIAGNOSIS Normal [facility] Comment on above: Order Comment: Speci men Type: TISSUE SPECIMEN Ordering Facility: [facility] Address: [address] [place] [address] Result Comment: A. S mall bowel, polyp: - Tubular adenoma. at 1332 EDT Performed By: #### 6 6121-5 #### [facility] CLIA [id number] [address] FINAL PERFORMING LAB Normal [facility] Comment on above: Order Comment: Speci men Type: TISSUE SPECIMEN Ordering Facility: [facility] Address: [address] [place] [address] Result Comment: Diag nostic interpretation performed at: [facility], [address] [place] [address] CLIA# [id number] Chief Electrician: Nigel Mcdonald MD Performed By: #### 6 6121-5 #### [facility] CLIA [id number] [address] [place] [address] GROSS DESCRIPTION Normal [facility] Comment on above: Order Comment: Speci men Type: TISSUE SPECIMEN Ordering Facility: [facility] Address: [facility] [place] [address] Result Comment: A. S mall Bowel, Polyp Received in formalin and designated small bowel polyp are multiple fragments of medina tissue with an aggregate measurement of 1.0 x 0.7 x 0.2 cm. The specimen is entirely submitted in cassette A1. KM November 06, 2024 12:51 PM Gross examination performed at [facility], [address] [place] [address] Performed By: #### 6 6121-5 #### [facility] CLIA [id number] [address] [place] [address] [place] Upper EUSon 11-05-2024 Upper EUS [facility] Gastrointestinal Endoscopy Patient Name: Deangelo Beach Procedure Date: 11/05/2024 10:37 AM Date of : 1940 Admit Type: Outpatient Room: [place] [address] Gender: Female Note Status: Finalized Attending MD: Latrice Reagan MD, [id number] Procedure: Upper EUS Indications: Suspected mass in pancreas on CT scan Providers: Latrice Reagan MD Patient Profile: Refer to note in patient chart for documentation of history and physical. Referring Physician: Spencer Velarde (Referring MD) Medicines: Monitored Anesthesia Care Complications: No immediate complications. Procedure: Pre-Anesthesia Assessment: - Prior to the procedure, a History and Physical was performed, and patient medications and allergies were reviewed. The patient is competent. The risks and benefits of the procedure and the sedation options and risks were discussed with the patient. All questions were answered and informed consent was obtained. Patient identification and proposed procedure were verified by the physician, the nurse and the anesthesiologist in the procedure room. Mental Status Examination: alert and oriented. Airway Examination: normal oropharyngeal airway and neck mobility. Respiratory Examination: clear to auscultation. CV Examination: normal. Prophylactic Antibiotics: The patient does not require prophylactic antibiotics. Prior Anticoagulants: The patient has taken no anticoagulant or antiplatelet agents. ASA Grade Assessment: III - A patient with severe systemic disease. After reviewing the risks and benefits, the patient was deemed in satisfactory condition to undergo the procedure. The anesthesia plan was to use monitored anesthesia care (MAC). Immediately prior to administration of medications, the patient was re-assessed for adequacy to receive sedatives. The heart rate, respiratory rate, oxygen saturations, blood pressure, adequacy of pulmonary ventilation, and response to care were monitored throughout the procedure. The physical status of the patient was re-assessed after the procedure. After obtaining informed consent, the endoscope was passed under direct vision. Throughout the procedure, the patient's blood pressure, pulse, and oxygen saturations were monitored continuously. The Endosonoscope was introduced through the mouth, and advanced to the second part of duodenum. I was present and participated during the entire procedure, including non-juárez portions, and during the administration and monitoring of Moderate Sedation. The Endoscope was introduced through the mouth, and advanced to the second part of duodenum. I was present and participated during the entire procedure, including non-juárez portions, and during the administration and monitoring of Moderate Sedation. After obtaining informed consent, the endoscope was passed under direct vision. Throughout the procedure, the patient's blood pressure, pulse, and oxygen saturations were monitored continuously.The upper EUS was accomplished without difficulty. The patient tolerated the procedure well. Moderate Sedation: An independent trained observer was present and continuously monitored the patient. Findings: ENDOSCOPIC FINDING: : A widely patent and non-obstructing Schatzki ring was found at the gastroesophageal junction. The entire examined stomach was normal. A single 6 mm sessile polyp with no bleeding was found in the second portion of the duodenum. The polyp was removed with a cold snare. Resection and retrieval were complete. ENDOSONOGRAPHIC FINDING: : The esophagus, stomach and duodenum were examined endosonographically. A round mass was identified in the pancreatic body. The mass was hypoechoic. The mass measured 15 mm by 20 mm in maximal cross-sectional diameter. The endosonographic borders were poorly-defined. The remainder of the pancreas was examined. The endosonographic appearance of parenchyma and the upstream pancreatic duct indicated no duct dilation. Fine needle biopsy was performed. Color Doppler imaging was utilized prior to needle puncture to confirm a lack of significant vascular structures within the needle path. Three passes were made with the 22 gauge Acquire biopsy needle using a transgastric approach. A visible core of tissue was obtained. A preliminary cytologic examination was performed. Final cytology results are pending. An oval mass was identified in the pancreatic head/body junction. The mass was hypoechoic. The mass measured 20 mm by 20 mm in maximal cross-sectional diameter. The endosonographic borders were well-defined. Fine needle biopsy was performed. Color Doppler imaging was utilized prior to needle puncture to confirm a lack of significant vascular structures within the needle path. Two passes were made with the 22 gauge Acquire biopsy needle using a t (more content not included)... Normal [facility] CNPTOUTREACHon 10-28-2024 CNPTOUTREACH Normal [facility] CNPNon 10-08-2024 CNPN Normal [facility] CNPNon 10-07-2024 CNPN Normal [facility] CNOVSPon 09-17-2024 CNOVSP Normal [facility] CNPNon 09-11-2024 CNPN Normal [facility] CNCOon 09-10-2024 CNCO Letter Text Normal [facility] CBC W Auto Differential pane l (Bld)on 09-02-2024 Basophils (Bld) [#/Vol] 10*3/uL Normal <0.11 [facility] Comment on above: Order Comment: Speci men Type: BLOOD SPECIMENOrdering Facility: [facility] Address: [address] [place] [address] Performed By: #### 5 7021-8 ####[facility] [id number] [place] [address] [place] Basophils/100 WBC (Bld) 0.2 % Normal [facility] Comment on above: Order Comment: Speci men Type: BLOOD SPECIMENOrdering Facility: [facility] Address: [address] [place] [address] Performed By: #### 5 7021-8 ####[facility] [id number] [place] [address] [place] Differential cell count method Nom (Bld) Auto Normal [facility] Comment on above: Order Comment: Speci men Type: BLOOD SPECIMENOrdering Facility: [facility] Address: [address] [place] [address] Performed By: #### 5 7021-8 ####[facility] [id number] [place] [address] [place] Eosinophils (Bld) [#/Vol] 0.25 10*3/uL Normal <0.46 [facility] Comment on above: Order Comment: Speci men Type: BLOOD SPECIMENOrdering Facility: [facility] Address: [address] [place] [address] Performed By: #### 5 7021-8 ####[facility] [id number] [place] [address] [place] Eosinophils/100 WBC (Bld) 4.1 % Normal [facility] Comment on above: Order Comment: Speci men Type: BLOOD SPECIMENOrdering Facility: [facility] Address: [address] [place] [address] Performed By: #### 5 7021-8 ####[facility] [id number] [place] [address] [place] Erythrocyte distribution width (RBC) [Ratio] 12.5 % Normal 11.5-15.0 [facility] Comment on above: Order Comment: Speci men Type: BLOOD SPECIMENOrdering Facility: [facility] Address: [address] [place] [address] Performed By: #### 5 7021-8 ####[facility] [id number] [place] [address] [place] Hematocrit (Bld) [Volume fraction] 47.4 % High 36.0-46.0 [facility] Comment on above: Order Comment: Speci men Type: BLOOD SPECIMENOrdering Facility: [facility] Address: [address] [place] [address] Performed By: #### 5 7021-8 ####[facility] HOSPITALBUNNY [id number] [place] [address] [place] Hemoglobin (Bld) [Mass/Vol] 16.0 g/dL High 11.5-15.5 [facility] Comment on above: Order Comment: Speci men Type: BLOOD SPECIMENOrdering Facility: [facility] Address: [address] [place] [address] Performed By: #### 5 7021-8 ####[facility] [id number] [place] [address] [place] Immature granulocytes (Bld) [#/Vol] 10*3/uL Normal <0.10 [facility] Comment on above: Order Comment: Speci men Type: BLOOD SPECIMENOrdering Facility: [facility] Address: [address] [place] [address] Performed By: #### 5 7021-8 ####[facility] [id number] [place] [address] [place] Immature granulocytes/100 WBC (Bld) 0.2 % Normal [facility] Comment on above: Order Comment: Speci men Type: BLOOD SPECIMENOrdering Facility: [facility] Address: [address] [place] [address] Performed By: #### 5 7021-8 ####[facility]ITALNCLIA [id number] [place] [address] [place] Lymphocytes (Bld) [#/Vol] 1.46 10*3/uL Normal 1.00-4.00 [facility] Comment on above: Order Comment: Speci men Type: BLOOD SPECIMENOrdering Facility: [facility] Address: [address] [place] [address] Performed By: #### 5 7021-8 ####[facility] ASHLEYRYDERWOODJONATHANLIA [id number] [place] [address] [place] Lymphocytes/100 WBC (Bld) 23.8 % Normal [facility] Comment on above: Order Comment: Speci men Type: BLOOD SPECIMENOrdering Facility: [facility] Address: [address] [place] [address] Performed By: #### 5 7021-8 ####[facility] HOSPITALARIK [id number] [place] [address] [place] MCH (RBC) [Entitic mass] 31.2 pg Normal 26.0-34.0 [facility] Comment on above: Order Comment: Speci men Type: BLOOD SPECIMENOrdering Facility: [facility] Address: [address] [place] [address] Performed By: #### 5 7021-8 ####[facility] [id number] [address] [place] MCHC (RBC) [Mass/Vol] 33.8 g/dL Normal 30.5-36.0 [facility] Comment on above: Order Comment: Speci men Type: BLOOD SPECIMENOrdering Facility: [facility] Address: [address] [place] [address] Performed By: #### 5 7021-8 ####[facility] [id number] [place] [address] [place] MCV (RBC) [Entitic vol] 92.4 fL Normal 80.0-100.0 [facility] Comment on above: Order Comment: Speci men Type: BLOOD SPECIMENOrdering Facility: [facility] Address: [address] [place] [address] Performed By: #### 5 7021-8 ####[facility] HOSPITALNCLI [id number] [place] [address] [place] Monocytes (Bld) [#/Vol] 0.45 10*3/uL Normal <0.87 [facility] Comment on above: Order Comment: Speci men Type: BLOOD SPECIMENOrdering Facility: [facility] Address: [address] [place] [address] Performed By: #### 5 7021-8 ####[facility]ENTERLIA [id number] [place] [address] [place] Monocytes/100 WBC (Bld) 7.3 % Normal [facility] Comment on above: Order Comment: Speci men Type: BLOOD SPECIMENOrdering Facility: [facility] Address: [address] [place] [address] Performed By: #### 5 7021-8 ####[facility] [id number] [place] [address] [place] Neutrophils (Bld) [#/Vol] 3.95 10*3/uL Normal 1.45-7.50 [facility] Comment on above: Order Comment: Speci men Type: BLOOD SPECIMENOrdering Facility: [facility] Address: [address] [place] [address] Performed By: #### 5 7021-8 ####[facility] [id number] [place] [address] [place] Neutrophils/100 WBC (Bld) 64.4 % Normal [facility] Comment on above: Order Comment: Speci men Type: BLOOD SPECIMENOrdering Facility: [facility] Address: [address] [place] [address] Performed By: #### 5 7021-8 ####[facility] [id number] [place] [address] [place] Nucleated RBC (Bld) [#/Vol] 10*3/uL Normal <0.01 [facility] Comment on above: Order Comment: Speci men Type: BLOOD SPECIMENOrdering Facility: [facility] Address: [address] [place] [address] Performed By: #### 5 7021-8 ####[facility] ASHLEYSAUD [id number] [place] [address] [place] Nucleated RBC/100 WBC (Bld) [Ratio] 0.0 /100 WBC Normal [facility] Comment on above: Order Comment: Speci men Type: BLOOD SPECIMENOrdering Facility: [facility] Address: [address] [place] [address] Performed By: #### 5 7021-8 ####[facility] HOSPITALNCARIN [id number] [place] [address] [place] Platelet mean volume (Bld) [Entitic vol] 9.7 fL Normal 9.0-12.7 [facility] Comment on above: Order Comment: Speci men Type: BLOOD SPECIMENOrdering Facility: [facility] Address: [address] [place] [address] Performed By: #### 5 7021-8 ####[facility] POINTChrissy [id number] [place] [address] [place] Platelets (Bld) [#/Vol] 206 10*3/uL Normal 150-400 [facility] Comment on above: Order Comment: Speci men Type: BLOOD SPECIMENOrdering Facility: [facility] Address: [address] [place] [address] Performed By: #### 5 7021-8 ####[facility]ENTERLI [id number] [place] [address] [place] RBC (Bld) [#/Vol] 5.13 10*6/uL Normal 3.90-5.20 [facility] Comment on above: Order Comment: Speci men Type: BLOOD SPECIMENOrdering Facility: [facility] Address: [address] [place] [address] Performed By: #### 5 7021-8 ####[facility]ITALNCLIA [id number] [place] [address] [place] WBC (Bld) [#/Vol] 6.13 10*3/uL Normal 3.70-11.00 [facility] Comment on above: Order Comment: Speci men Type: BLOOD SPECIMENOrdering Facility: [facility] Address: [address] [place] [address] Performed By: #### 5 7021-8 ####[facility]ITALNCMCK[facility] [id number] [place] [address] [place] CT ABD/PEL W IVCONon 025 CT ABD/PEL W IVCON Invalid Interpretation Code [facility] CT CHEST W IVCONon 5 CT CHEST W IVCON Normal [facility] metabolic 2000 panelon 09-02-2024 Albumin [Mass/Vol] 4.1 g/dL Normal 3.9-4.9 [facility] Comment on above: Order Comment: Speci men Type: BLOOD SPECIMENOrdering Facility: [facility] Address: [address] [place] [address] Performed By: #### 2 4323-8 ####[facility] HOSPITALNCLIA [id number] [place] [address] [place] ALP [Catalytic activity/Vol] 93 U/L Normal 34-123 [facility] Comment on above: Order Comment: Speci men Type: BLOOD SPECIMENOrdering Facility: [facility] Address: [address] [place] [address] Performed By: #### 2 4323-8 ####[facility] HOSPITALNCA [id number] [place] [address] [place] ALT [Catalytic activity/Vol] 10 U/L Normal 7-38 [facility] Comment on above: Order Comment: Speci men Type: BLOOD SPECIMENOrdering Facility: [facility] Address: [address] [place] [address] Performed By: #### 2 4323-8 ####[facility] LILIANA MILLTOWNCLIA [id number] [place] [address] [place] Anion gap [Moles/Vol] 12 mmol/L Normal 8-15 [facility] Comment on above: Order Comment: Speci men Type: BLOOD SPECIMENOrdering Facility: [facility] Address: [address] [place] [address] Performed By: #### 2 4323-8 ####[facility] MILLTOWNCLIA [id number] [place] [address] [place] AST [Catalytic activity/Vol] 14 U/L Normal 13-35 [facility] Comment on above: Order Comment: Speci men Type: BLOOD SPECIMENOrdering Facility: [facility] Address: [address] [place] [address] Performed By: #### 2 4323-8 ####[facility] MILLWNCLIA [id number] [place] [address] [place] Bilirubin [Mass/Vol] 0.4 mg/dL Normal 0.2-1.3 [facility] Comment on above: Order Comment: Speci men Type: BLOOD SPECIMENOrdering Facility: [facility] Address: [address] [place] [address] Performed By: #### 2 4323-8 ####[facility] MILLTOWNCLIA [id number] [place] [address] [place] Calcium [Mass/Vol] 9.9 mg/dL Normal 8.5-10.2 [facility] Comment on above: Order Comment: Speci men Type: BLOOD SPECIMENOrdering Facility: [facility] Address: [address] [place] [address] Performed By: #### 2 4323-8 ####[facility] MILLTOWNCLIA [id number] [place] [address] [place] Chloride [Moles/Vol] 105 mmol/L Normal 98-107 [facility] Comment on above: Order Comment: Speci men Type: BLOOD SPECIMENOrdering Facility: [facility] Address: [address] [place] [address] Performed By: #### 2 4323-8 ####[facility] [id number] [place] [address] [place] CO2 [Moles/Vol] 20 mmol/L Low 22-30 [facility] Comment on above: Order Comment: Speci men Type: BLOOD SPECIMENOrdering Facility: [facility] Address: [address] [place] [address] Performed By: #### 2 4323-8 ####[facility] [id number] [place] [address] [place] Creatinine [Mass/Vol] 0.91 mg/dL Normal 0.58-0.96 [facility] Comment on above: Order Comment: Speci men Type: BLOOD SPECIMENOrdering Facility: [facility] Address: [address] [place] [address] Performed By: #### 2 4323-8 ####[facility] [id number] [place] [address] [place] [facility] Creatinine and Glomerular filtration rate.predicted panel (S/P/Bld) 63 mL/min/1.73m??? Normal >=60 [facility] Comment on above: Order Comment: Speci men Type: BLOOD SPECIMENOrdering Facility: [facility] Address: [address] [place] [address] Result Comment: Nicolle mated Glomerular Filtration Rate (eGFR) is calculated using the 2020 CKD-EPI creatinine equation. This equation utilizes serum creatinine, sex, and age as parameters. The creatinine assay has traceable calibration to isotope dilution-mass spectrometry. Refer to KDIGO guidelines for clinical interpretation. In patients with unstable renal function, e.g. those with acute kidney injury, the eGFR may not accurately reflect actual GFR. Performed By: #### 2 4323-8 ####[facility] HOSPITALNCLI [id number] [place] [address] [place] Glucose [Mass/Vol] 98 mg/dL Normal 74-99 [facility] Comment on above: Order Comment: Yecenia whiteside Type: BLOOD SPECIMENOrdering Facility: [facility] Address: [address] [place] [address] Result Comment: The [place] Diabetes Association (ADA) provides guidance for cutoff values for fasting glucose and random glucose. The ADA defines fasting as no caloric intake for at least 8 hours. Fasting plasma glucose results between 100 to 125 mg/dL indicate increased risk for diabetes (prediabetes).Fasting plasma glucose results greater than or equal to 126 mg/dL meet the criteria for diagnosis of diabetes. In the absence of unequivocal hyperglycemia, results should be confirmed by repeat testing. In a patient with classic symptoms of hyperglycemia or hyperglycemic crisis, random plasma glucose results greater than or equal to 200 mg/dL meet the criteria for diagnosis of diabetes.Reference: Standards of Medical Care in Diabetes 2016, [place] Diabetes Association. Diabetes Care. 2016.39(Suppl 1). Performed By: #### 2 4323-8 ####[facility] HOSPITALNCA [id number] [place] [address] [place] Potassium [Moles/Vol] 4.2 mmol/L Normal 3.7-5.1 [facility] Comment on above: Order Comment: Yecenia whiteside Type: BLOOD SPECIMENOrdering Facility: [facility] Address: [address] [place] [address] Performed By: #### 2 4323-8 ####[facility] [id number] [place] [address] [place] Protein [Mass/Vol] 6.6 g/dL Normal 6.3-8.0 [facility] Comment on above: Order Comment: Yecenia whiteside Type: BLOOD SPECIMENOrdering Facility: [facility] Address: [facility] [place] [address] Performed By: #### 2 4323-8 ####[facility] ASHLEYRYDERWOODNCLIA [id number] [place] [address] [place] Sodium [Moles/Vol] 137 mmol/L Normal 136-144 [facility] Comment on above: Order Comment: Speci men Type: BLOOD SPECIMENOrdering Facility: [facility] Address: [address] [place] [address] Performed By: #### 2 4323-8 ####[facility] HOSPITALNCLIA [id number] [place] [address] [place] Urea nitrogen [Mass/Vol] 23 mg/dL High 11-02 [facility] Comment on above: Order Comment: Speci men Type: BLOOD SPECIMENOrdering Facility: [facility] Address: [address] [place] [address] Performed By: #### 2 4323-8 ####[facility] HOSPITALNCLIA [id number] [place] [address] [place] CNOVon 08-05-2024 CNOV Normal [facility] CNPNon 07-09-2024 CNPN Normal [facility] CNPNon 06-18-2024 CNPN Normal [facility] CNOVon 06-08-2024 CNOV Normal [facility] CNPNon 06-05-2024 CNPN Normal [facility] CBC W Auto Differential pane l (Bld)on 06-03-2024 Basophils (Bld) [#/Vol] NINF [facility] Basophils/100 WBC (Bld) 0.3 % [facility] Differential cell count method Nom (Bld) Auto [facility] Eosinophils (Bld) [#/Vol] 0.8 10*3/uL High NINF [facility] Eosinophils/100 WBC (Bld) 12.3 % [facility] Erythrocyte distribution width (RBC) [Ratio] 13.1 % 11.5 - 15.0 % [facility] Hematocrit (Bld) [Volume fraction] 44.3 % 36.0 - 46.0 % [facility] Hemoglobin (Bld) [Mass/Vol] 14.8 g/dL 11.5 - 15.5 g/dL [facility] Immature granulocytes (Bld) [#/Vol] NINF [facility] Immature granulocytes/100 WBC (Bld) 0.2 % [facility] Interpretation and review of laboratory results Abnormal [facility] Lymphocytes (Bld) [#/Vol] 1.07 10*3/uL [facility] Lymphocytes/100 WBC (Bld) 16.4 % [facility] MCH (RBC) [Entitic mass] 30.9 pg 26.0 - 34.0 pg [facility] MCHC (RBC) [Mass/Vol] 33.4 g/dL 30.5 - 36.0 g/dL [facility] MCV (RBC) [Entitic vol] 92.5 fL 80.0 - 100.0 fL [facility] Monocytes (Bld) [#/Vol] 0.62 10*3/uL [facility] Monocytes/100 WBC (Bld) 9.5 % [facility] Neutrophils (Bld) [#/Vol] 4 10*3/uL [facility] Neutrophils/100 WBC (Bld) 61.3 % [facility] Nucleated RBC (Bld) [#/Vol] NINF [facility] Nucleated RBC/100 WBC (Bld) [Ratio] 0 % /100 WBC [facility] Platelet mean volume (Bld) [Entitic vol] 9 fL 9.0 - 12.7 fL [facility] Platelets (Bld) [#/Vol] 238 10*3/uL [facility] RBC (Bld) [#/Vol] 4.79 10*6/uL 3.90 - 5.2 0 m/uL [facility] WBC (Bld) [#/Vol] 6.52 10*3/uL [facility] Basophils (Bld) [#/Vol] 10*3/uL Normal <0.11 [facility] Comment on above: Order Comment: Speci men Type: BLOOD SPECIMENOrdering Facility: [facility] Address: [address] [place], [place] [address] Performed By: #### 5 7021-8 ####[facility] [place] [id number] [place] [address] [place] Basophils/100 WBC (Bld) 0.3 % Normal [facility] Comment on above: Order Comment: Speci men Type: BLOOD SPECIMENOrdering Facility: [facility] Address: [address] [place] [address] Performed By: #### 5 7021-8 ####[facility] [id number] [place] [address] [place] Differential cell count method Nom (Bld) Auto Normal [facility] Comment on above: Order Comment: Speci men Type: BLOOD SPECIMENOrdering Facility: [facility] Address: [address] [place] [address] Performed By: #### 5 7021-8 ####[facility] [id number] [place] [address] [place] Eosinophils (Bld) [#/Vol] 0.80 10*3/uL High <0.46 [facility] Comment on above: Order Comment: Speci men Type: BLOOD SPECIMENOrdering Facility: [facility] Address: [address] [place] [address] Performed By: #### 5 7021-8 ####[facility] [id number] [place] [address] [place] Eosinophils/100 WBC (Bld) 12.3 % Normal [facility] Comment on above: Order Comment: Speci men Type: BLOOD SPECIMENOrdering Facility: [facility] Address: [address] [place] [address] Performed By: #### 5 7021-8 ####[facility] [id number] [place] [address] [place] Erythrocyte distribution width (RBC) [Ratio] 13.1 % Normal 11.5-15.0 [facility] Comment on above: Order Comment: Speci men Type: BLOOD SPECIMENOrdering Facility: [facility] Address: [address] [place] [address] Performed By: #### 5 7021-8 ####[facility] HE[facility] [id number] [place] [address] [place] Hematocrit (Bld) [Volume fraction] 44.3 % Normal 36.0-46.0 [facility] Comment on above: Order Comment: Speci men Type: BLOOD SPECIMENOrdering Facility: [facility] Address: [address] [place] [address] Performed By: #### 5 7021-8 ####[facility] HOSPITALBUNNY [id number] [place] [address] [place] Hemoglobin (Bld) [Mass/Vol] 14.8 g/dL Normal 11.5-15.5 [facility] Comment on above: Order Comment: Speci men Type: BLOOD SPECIMENOrdering Facility: [facility] Address: [address] [place] [address] Performed By: #### 5 7021-8 ####[facility] IMPERIAL POINTChrissy [id number] [place] [address] [place] Immature granulocytes (Bld) [#/Vol] 10*3/uL Normal <0.10 [facility] Comment on above: Order Comment: Speci men Type: BLOOD SPECIMENOrdering Facility: [facility] Address: [address] [place] [address] Performed By: #### 5 7021-8 ####[facility] HOSPITALJONATHANLIA [id number] [place] [address] [place] Immature granulocytes/100 WBC (Bld) 0.2 % Normal [facility] Comment on above: Order Comment: Speci men Type: BLOOD SPECIMENOrdering Facility: [facility] Address: [address] [place] [address] Performed By: #### 5 7021-8 ####[facility] CORAL SPRINGSWNCLIA [id number] [place] [address] [place] Lymphocytes (Bld) [#/Vol] 1.07 10*3/uL Normal 1.00-4.00 [facility] Comment on above: Order Comment: Speci men Type: BLOOD SPECIMENOrdering Facility: [facility] Address: [address] [place] [address] Performed By: #### 5 7021-8 ####[facility] CENTERLIA [id number] [place] [address] [place] Lymphocytes/100 WBC (Bld) 16.4 % Normal [facility] Comment on above: Order Comment: Speci men Type: BLOOD SPECIMENOrdering Facility: [facility] Address: [address] [place] [address] Performed By: #### 5 7021-8 ####[facility]TA [id number] [place] [address] [place] MCH (RBC) [Entitic mass] 30.9 pg Normal 26.0-34.0 [facility] Comment on above: Order Comment: Speci men Type: BLOOD SPECIMENOrdering Facility: [facility] Address: [address] [place] [address] Performed By: #### 5 7021-8 ####[facility] CENTERLIA [id number] [place] [address] [place] MCHC (RBC) [Mass/Vol] 33.4 g/dL Normal 30.5-36.0 [facility] Comment on above: Order Comment: Speci men Type: BLOOD SPECIMENOrdering Facility: [facility] Address: [address] [place] [address] Performed By: #### 5 7021-8 ####[facility] HOSPITALNCLI [id number] [place] [id number] [place] MCV (RBC) [Entitic vol] 92.5 fL Normal 80.0-100.0 [facility] Comment on above: Order Comment: Speci men Type: BLOOD SPECIMENOrdering Facility: [facility] Address: [address] [place] [address] Performed By: #### 5 7021-8 ####[facility] HOSPITALNCA [id number] [place] [address] [place] Monocytes (Bld) [#/Vol] 0.62 10*3/uL Normal <0.87 [facility] Comment on above: Order Comment: Speci men Type: BLOOD SPECIMENOrdering Facility: [facility] Address: [address] [place] [address] Performed By: #### 5 7021-8 ####[facility] HOSPITALNCLIA [id number] [place] [address] [place] Monocytes/100 WBC (Bld) 9.5 % Normal [facility] Comment on above: Order Comment: Speci men Type: BLOOD SPECIMENOrdering Facility: [facility] Address: [address] [place] [address] Performed By: #### 5 7021-8 ####[facility] CENTERLIA [id number] [place] [address] [place] Neutrophils (Bld) [#/Vol] 4.00 10*3/uL Normal 1.45-7.50 [facility] Comment on above: Order Comment: Speci men Type: BLOOD SPECIMENOrdering Facility: [facility] Address: [address] [place] [address] Performed By: #### 5 7021-8 ####[facility] HOSPITALNCLIA [id number] [place] [address] [place] Neutrophils/100 WBC (Bld) 61.3 % Normal [facility] Comment on above: Order Comment: Speci men Type: BLOOD SPECIMENOrdering Facility: [facility] Address: [address] [place] [address] Performed By: #### 5 7021-8 ####[facility] HOSPITALBUNNY [id number] [place] [address] [place] Nucleated RBC (Bld) [#/Vol] 10*3/uL Normal <0.01 [facility] Comment on above: Order Comment: Speci men Type: BLOOD SPECIMENOrdering Facility: [facility] Address: [address] [place] [address] Performed By: #### 5 7021-8 ####[facility] [id number] [place] [address] [place] Nucleated RBC/100 WBC (Bld) [Ratio] 0.0 /100 WBC Normal [facility] Comment on above: Order Comment: Speci men Type: BLOOD SPECIMENOrdering Facility: [facility] Address: [address] [place] [address] Performed By: #### 5 7021-8 ####[facility] [id number] [place] [address] [place] Platelet mean volume (Bld) [Entitic vol] 9.0 fL Normal 9.0-12.7 [facility] Comment on above: Order Comment: Speci men Type: BLOOD SPECIMENOrdering Facility: [facility] Address: [address] [place] [address] Performed By: #### 5 7021-8 ####[facility] [id number] [place] [address] [place] Platelets (Bld) [#/Vol] 238 10*3/uL Normal 150-400 [facility] Comment on above: Order Comment: Speci men Type: BLOOD SPECIMENOrdering Facility: [facility] Address: [address] [place] [address] Performed By: #### 5 7021-8 ####[facility] ASHLEYGabrieleNCLIA [id number] [place] [address] [place] RBC (Bld) [#/Vol] 4.79 10*6/uL Normal 3.90-5.20 [facility] Comment on above: Order Comment: Speci men Type: BLOOD SPECIMENOrdering Facility: [facility] Address: [address] [place] [address] Performed By: #### 5 7021-8 ####[facility] HOSPITALNCLIA [id number] [place] [address] [place] WBC (Bld) [#/Vol] 6.52 10*3/uL Normal 3.70-11.00 [facility] Comment on above: Order Comment: Speci men Type: BLOOD SPECIMENOrdering Facility: [facility] Address: [address] [place] [address] Performed By: #### 5 7021-8 ####[facility] HOSPITALNCLIA [id number] [place] [address] [place] CNOVSPon 06-03-2024 CNOVSP Normal [facility] CT CHEST W IVCONon CT CHEST W IVCON Normal [facility] CNPNon 05-27-2024 CNPN Normal [facility] CNPNon 05-26-2024 CNPN Normal [facility] Basic metabolic 2000 panelon 05-20-2024 Anion gap [Moles/Vol] 9 mmol/L Normal 8-15 [facility] Comment on above: Order Comment: Speci men Type: BLOOD SPECIMENOrdering Facility: [facility] Address: [address] [place] [address] Performed By: #### 2 4321-2 ####[facility] HOSPITALNCLIA [id number] [place] [address] [place] Calcium [Mass/Vol] 10.1 mg/dL Normal 8.5-10.2 [facility] Comment on above: Order Comment: Speci men Type: BLOOD SPECIMENOrdering Facility: [facility] Address: [address] [place] [address] Performed By: #### 2 4321-2 ####[facility] SPRINGSWNCLIA [id number] [place] [address] [place] Chloride [Moles/Vol] 104 mmol/L Normal 98-107 [facility] Comment on above: Order Comment: Speci men Type: BLOOD SPECIMENOrdering Facility: [facility] Address: [address] [place] [address] Performed By: #### 2 4321-2 ####[facility] COR[facility] SPRINGSWMELIA [id number] [place] [address] [place] CO2 [Moles/Vol] 26 mmol/L Normal 22-30 [facility] Comment on above: Order Comment: Speci men Type: BLOOD SPECIMENOrdering Facility: [facility] Address: [address] [place] [address] Performed By: #### 2 4321-2 ####[facility] CENTERLIA [id number] [place] [address] [place] Creatinine [Mass/Vol] 0.82 mg/dL Normal 0.58-0.96 [facility] Comment on above: Order Comment: Speci men Type: BLOOD SPECIMENOrdering Facility: [facility] Address: [address] [place] [address] Performed By: #### 2 4321-2 ####[facility] HOSPITALNCLIA [id number] [place] [address] [place] Creatinine and Glomerular filtration rate.predicted panel (S/P/Bld) 71 mL/min/1.73m??? Normal >=60 [facility] Comment on above: Order Comment: Speci men Type: BLOOD SPECIMENOrdering Facility: [facility] Address: [facility] [place] [address] Result Comment: Nicolle mated Glomerular Filtration Rate (eGFR) is calculated using the 2020 CKD-EPI creatinine equation. This equation utilizes serum creatinine, sex, and age as parameters. The creatinine assay has traceable calibration to isotope dilution-mass spectrometry. Refer to KDIGO guidelines for clinical interpretation. In patients with unstable renal function, e.g. those with acute kidney injury, the eGFR may not accurately reflect actual GFR. Performed By: #### 2 4321-2 ####[facility] [id number] [place] [address] [place] Glucose [Mass/Vol] 108 mg/dL High 74-99 [facility] Comment on above: Order Comment: Yecenia whiteside Type: BLOOD SPECIMENOrdering Facility: [facility] Address: [address] [place] [address] Result Comment: The [place] Diabetes Association (ADA) provides guidance for cutoff values for fasting glucose and random glucose. The ADA defines fasting as no caloric intake for at least 8 hours. Fasting plasma glucose results between 100 to 125 mg/dL indicate increased risk for diabetes (prediabetes).Fasting plasma glucose results greater than or equal to 126 mg/dL meet the criteria for diagnosis of diabetes. In the absence of unequivocal hyperglycemia, results should be confirmed by repeat testing. In a patient with classic symptoms of hyperglycemia or hyperglycemic crisis, random plasma glucose results greater than or equal to 200 mg/dL meet the criteria for diagnosis of diabetes.Reference: Standards of Medical Care in Diabetes 2016, [place] Diabetes Association. Diabetes Care. 2016.39(Suppl 1). Performed By: #### 2 4321-2 ####[facility] CENTERLIA [id number] [place] [address] [place] Potassium [Moles/Vol] 3.6 mmol/L Low 3.7-5.1 [facility] Comment on above: Order Comment: Yecenia whiteside Type: BLOOD SPECIMENOrdering Facility: [facility] Address: [address] [place], [place] [address] Performed By: #### 2 4321-2 ####[facility] CENTERLI [id number] [place] [address] [place] Sodium [Moles/Vol] 139 mmol/L Normal 136-144 [facility] Comment on above: Order Comment: Speci men Type: BLOOD SPECIMENOrdering Facility: [facility] Address: [address] [place] [address] Performed By: #### 2 4321-2 ####[facility] [id number] [place] [address] [place] Urea nitrogen [Mass/Vol] 16 mg/dL Normal 7-21 [facility] Comment on above: Order Comment: Speci men Type: BLOOD SPECIMENOrdering Facility: [facility] Address: [address] [place] [address] Performed By: #### 2 4321-2 ####[facility] [id number] [place] [address] [place] Lipid 1996 panelon 5 Cholesterol [Mass/Vol] 174 mg/dL Normal <200 [facility] Comment on above: Order Comment: Speci men Type: BLOOD SPECIMENOrdering Facility: [facility] Address: [address] [place] [address] Result Comment: <200 mg/dL, Desirable 200-239 mg/dL, Borderline high>239 mg/dL, High Performed By: #### 2 4331-1 ####[facility] LABCLIA [id number] [facility] [id number] [address] [place] [facility] [id number] [place] [address] [place] Cholesterol in HDL [Mass/Vol] 68 mg/dL Normal >39 [facility] Comment on above: Order Comment: Speci men Type: BLOOD SPECIMENOrdering Facility: [facility] Address: [address] [place] [address] Result Comment: 40-5 9 mg/dL, Acceptable>59 mg/dL, High: Negative risk factor for coronary heart disease<40 mg/dL, Low: Positive risk factor for coronary heart disease Performed By: #### 2 4331-1 ####[facility] LABCLIA [id number] [address] [id number] [address] [place] Cholesterol in LDL [Mass/Vol] 78 mg/dL Normal <100 [facility] Comment on above: Order Comment: Speci men Type: BLOOD SPECIMENOrdering Facility: [facility] Address: [address] [place] [address] Result Comment: <100 mg/dL, Optimal 100-129 mg/dL, Near optimal/above optimal 130-159 mg/dL, Borderline high 160-189 mg/dL, High>189 mg/dL, Very highSecondary prevention optimal LDL Cholesterol levels are recommended to be < 70 mg/dL Performed By: #### 2 4331-1 ####[facility] LABCLIA [id number] [address] [id number] [place] [address] [place] [facility] Cholesterol in LDL/Cholesterol in HDL [Mass ratio] 1.15 {ratio} Normal <2.54 [facility] Comment on above: Order Comment: Speci men Type: BLOOD SPECIMENOrdering Facility: [facility] Address: [address] [place] [address] Result Comment: Refe rence:1. National Cholesterol Education Program ATP III Guideline At-A-Glance Quick Desk Reference: National Heart, Lung, and Blood Cobalt. National Institutes of Health. 2001: NIH Publication No. 01-3305.2. An International Atherosclerosis Society position paper: global recommendations for the management of dyslipidemia: executive summary, Atherosclerosis. 2014: 232(2):410-413. Performed By: #### 2 4331-1 ####[facility] LABCLIA [id number] [address] [id number] [place] [address] [place] Cholesterol in VLDL [Mass/Vol] 28 mg/dL Normal <30 [facility] Comment on above: Order Comment: Speci men Type: BLOOD SPECIMENOrdering Facility: [facility] Address: [address] [place] [address] Performed By: #### 2 4331-1 ####[facility] LABCLIA [id number] [address] [id number] [place] [address] [place] Cholesterol non HDL [Mass/Vol] 106 mg/dL Normal <130 [facility] Comment on above: Order Comment: Speci men Type: BLOOD SPECIMENOrdering Facility: [facility] Address: [address] [place] [address] Result Comment: <130 mg/dL, Optimal 130-159 mg/dL, Near optimal/above optimal 160-189 mg/dL, Borderline high 190-219 mg/dL, High>219 mg/dL, Very highSecondary prevention optimal non HDL Cholesterol levels are recommended to be <100 mg/dL Performed By: #### 2 4331-1 ####[facility] LABCLIA [id number] [address] [id number] [place] [address] [place] Cholesterol.total/Chol esterol in HDL [Mass ratio] 2.56 {ratio} Normal <5.10 [facility] Comment on above: Order Comment: Speci men Type: BLOOD SPECIMENOrdering Facility: [facility] Address: [address] [place], [place] [address] Performed By: #### 2 4331-1 ####[facility] LABCLIA [id number] [address] [id number] [place] [address] [place] FASTING TIME 12 hrs Normal [facility] Comment on above: Order Comment: Speci men Type: BLOOD SPECIMENOrdering Facility: [facility] Address: [address] [place] [address] Performed By: #### 2 4331-1 ####[facility] LABCLIA [id number] [address] [id number] [place] [address] [place] Triglyceride [Mass/Vol] 138 mg/dL Normal <150 [facility] Comment on above: Order Comment: Speci men Type: BLOOD SPECIMENOrdering Facility: [facility] Address: [address] [place] [address] Result Comment: <150 mg/dL, Normal 150-199 mg/dL, Borderline high 200-499 mg/dL, High>499 mg/dL, Very high Performed By: #### 2 4331-1 ####[facility] LABCLIA [id number] [address] [id number] [place] [address] [place] CNCNPATEDon 05-06-2024 CNCNPATED Normal [facility] CNOVon 05-05-2024 CNOV Normal [facility] CNOVon 04-28-2024 CNOV Normal [facility] CNOVon 04-21-2024 CNOV Normal [facility] CNNURSEon 03-30-2024 CNNURSE Normal [facility] CNOVon 03-23-2024 CNOV Normal [facility] CBC W Ordered Manual Differe ntial panel (Bld)on 03-19-2024 Basophils (Bld) [#/Vol] 0.04 10*3/uL [facility] Basophils/100 WBC (Bld) 0.5 % [facility] Differential cell count method Nom (Bld) Auto [facility] Eosinophils (Bld) [#/Vol] 0.48 10*3/uL High [facility] Eosinophils/100 WBC (Bld) 5.4 % [facility] Erythrocyte distribution width (RBC) [Ratio] 12.6 % 11.5 - 15.0 % [facility] Hematocrit (Bld) [Volume fraction] 48.2 % High 36.0 - 46.0 % [facility] Hemoglobin (Bld) [Mass/Vol] 16.4 g/dL High 11.5 - 15.5 g/dL [facility] Immature granulocytes (Bld) [#/Vol] 0.03 10*3/uL [facility] Immature granulocytes/100 WBC (Bld) 0.3 % [facility] Interpretation and review of laboratory results Abnormal [facility] Lymphocytes (Bld) [#/Vol] 1.70 10*3/uL [facility] Lymphocytes/100 WBC (Bld) 19.3 % [facility] MCH (RBC) [Entitic mass] 30.9 pg 26.0 - 34.0 pg [facility] MCHC (RBC) [Mass/Vol] 34.0 g/dL 30.5 - 36.0 g/dL [facility] MCV (RBC) [Entitic vol] 90.8 fL 80.0 - 100.0 fL [facility] Monocytes (Bld) [#/Vol] 0.63 10*3/uL [facility] Monocytes/100 WBC (Bld) 7.1 % [facility] Neutrophils (Bld) [#/Vol] 5.95 10*3/uL [facility] Neutrophils/100 WBC (Bld) 67.4 % [facility] Platelet mean volume (Bld) [Entitic vol] 10.1 fL 9.0 - 12.7 fL [facility] Platelets (Bld) [#/Vol] 282 10*3/uL [facility] RBC (Bld) [#/Vol] 5.31 10*6/uL High 3.90 - 5.2 0 m/uL [facility] WBC (Bld) [#/Vol] 8.74 10*3/uL [facility] This is an appended report. These results have been appended to a previously verified report. [facility] Basophils (Bld) [#/Vol] 0.04 10*3/uL Normal <0.11 [facility] Comment on above: Order Comment: Speci men Type: BLOOD SPECIMENOrdering Facility: [facility] Address: [address] [place] [address] Performed By: #### 5 7782-5 ####[facility] MILLTOWNCLIA [id number] [place] [address] [place] [facility] LABCLIA [id number] [place] [address] [place]#### STFREV ####[facility] LABCLIA [id number] [place] [address] [place] Basophils/100 WBC (Bld) 0.5 % Normal [facility] Comment on above: Order Comment: Speci men Type: BLOOD SPECIMENOrdering Facility: [facility] Address: [address] [place] [address] Performed By: #### 5 7782-5 ####[facility]INGSWMELIA [id number] [place] [address] [place] [facility] LABCL[facility] [id number] [place] [address] [place]#### STFREV ####[facility] LABCLIA [id number] [place] [address] [place] Differential cell count method Nom (Bld) Auto Normal [facility] Comment on above: Order Comment: Speci men Type: BLOOD SPECIMENOrdering Facility: [facility] Address: [address] [place] [address] Performed By: #### 5 7782-5 ####[facility] MILLWNCLIA [id number] [place] [id number] [place] [facility] LAB[facility] [id number] [place] [address] [place]#### STFREV ####[facility] LABCLIA [id number] [place] [address] [place] Eosinophils (Bld) [#/Vol] 0.48 10*3/uL High <0.46 [facility] Comment on above: Order Comment: Speci men Type: BLOOD SPECIMENOrdering Facility: [facility] Address: [address] [place] [address] Performed By: #### 5 7782-5 ####[facility] [id number] [place] [address] [place] [facility] LABCLIA [id number] [place] [address] [place]#### STFREV ####[facility] LABCLIA [id number] [place] [address] [place] Eosinophils/100 WBC (Bld) 5.4 % Normal [facility] Comment on above: Order Comment: Speci men Type: BLOOD SPECIMENOrdering Facility: [facility] Address: [address] [place] [address] Performed By: #### 5 7782-5 ####[facility] H[facility]PITALNCLIA [id number] [place] [address] [place] [facility] LABCLIA [id number] [place] [address] [place]#### STFREV ####[facility] LABCLIA [id number] [place] [address] [place] Erythrocyte distribution width (RBC) [Ratio] 12.6 % Normal 11.5-15.0 [facility] Comment on above: Order Comment: Speci men Type: BLOOD SPECIMENOrdering Facility: [facility] Address: [address] [place] [address] Performed By: #### 5 7782-5 ####[facility] MILLTOWNCLIA [id number] [place] [address] [place] [facility] LABCLIA [id number] [place] [address] [place]#### STFREV ####[facility] LABCLIA [id number] [place] [address] [place] Hematocrit (Bld) [Volume fraction] 48.2 % High 36.0-46.0 [facility] Comment on above: Order Comment: Speci men Type: BLOOD SPECIMENOrdering Facility: [facility] Address: [address] [place] [address] Performed By: #### 5 7782-5 ####[facility]SWNCLIA [id number] [place] [address] [place] [facility] LABCLIA [id number] [place] [address] [place]#### STFREV ####[facility] LABCLIA [id number] [place] [address] [place] Hemoglobin (Bld) [Mass/Vol] 16.4 g/dL High 11.5-15.5 [facility] Comment on above: Order Comment: Speci men Type: BLOOD SPECIMENOrdering Facility: [facility] Address: [address] [place] [address] Performed By: #### 5 7782-5 ####[facility] MILLTOWNCLIA [id number] [place] [address] [place] [facility] LABCLIA [id number] [place] [address] [place]#### STFREV ####[facility] LABCLIA [id number] [place] [address] [place] Immature granulocytes (Bld) [#/Vol] 0.03 10*3/uL Normal <0.10 [facility] Comment on above: Order Comment: Speci men Type: BLOOD SPECIMENOrdering Facility: [facility] Address: [address] [place] [address] Performed By: #### 5 7782-5 ####[facility] [id number] [place] [address] [place] [facility] LABCLIA [id number] [place] [address] [place]#### STFREV ####[facility] LABCLIA [id number] [place] [address] [place] Immature granulocytes/100 WBC (Bld) 0.3 % Normal [facility] Comment on above: Order Comment: Speci men Type: BLOOD SPECIMENOrdering Facility: [facility] Address: [address] [place] [address] Performed By: #### 5 7782-5 ####[facility] [id number] [place] [address] [place] [facility] LABCLIA [id number] [place] [address] [place]#### STFREV ####[facility] LABIA [id number] [place] [address] [place] Lymphocytes (Bld) [#/Vol] 1.70 10*3/uL Normal 1.00-4.00 [facility] Comment on above: Order Comment: Speci men Type: BLOOD SPECIMENOrdering Facility: [facility] Address: [address] [place] [address] Performed By: #### 5 7782-5 ####[facility]ENTERLIA [id number] [address] STATES [facility] LABCLIA [id number] [place] [address] [place]#### STFREV ####[facility] LABCLIA [id number] [place] [address] [place] Lymphocytes/100 WBC (Bld) 19.3 % Normal [facility] Comment on above: Order Comment: Speci men Type: BLOOD SPECIMENOrdering Facility: [facility] Address: [address] [place] [address] Performed By: #### 5 7782-5 ####[facility] [id number] [address] [facility] LABCLIA [id number] [place] [address] [place]#### STFREV ####[facility] LABCLIA [id number] [place] [address] [place] MCH (RBC) [Entitic mass] 30.9 pg Normal 26.0-34.0 [facility] Comment on above: Order Comment: Speci men Type: BLOOD SPECIMENOrdering Facility: [facility] Address: [address] [place] [address] Performed By: #### 5 7782-5 ####[facility]ENTERLIA [id number] [address] [place] [facility] LABCLIA [id number] [place] [address] [place]#### STFREV ####[facility] LABCLIA [id number] [place] [address] [place] MCHC (RBC) [Mass/Vol] 34.0 g/dL Normal 30.5-36.0 [facility] Comment on above: Order Comment: Speci men Type: BLOOD SPECIMENOrdering Facility: [facility] Address: [address] [place] [address] Performed By: #### 5 7782-5 ####[facility] MILLTOWNCLIA [id number] [place] [address] [place] [facility] LABCLIA [id number] [place] [address] [place]#### STFREV ####[facility] LABCLIA [id number] [place] [address] [place] MCV (RBC) [Entitic vol] 90.8 fL Normal 80.0-100.0 [facility] Comment on above: Order Comment: Speci men Type: BLOOD SPECIMENOrdering Facility: [facility] Address: [address] [place] [address] Performed By: #### 5 7782-5 ####[facility]ENTERLIA [id number] [place] [address] [place] [facility] LABCLIA [id number] [place] [address] [place]#### STFREV ####[facility] LABCLIA [id number] [place] [address] [place] Monocytes (Bld) [#/Vol] 0.63 10*3/uL Normal <0.87 [facility] Comment on above: Order Comment: Speci men Type: BLOOD SPECIMENOrdering Facility: [facility] Address: [address] [place] [address] Performed By: #### 5 7782-5 ####[facility] MILLWNCLIA [id number] [place] [address] [place] [facility] LABCLIA [id number] [place] [address] [place]#### STFREV ####[facility] LABCLIA [id number] [place] [id number] [place] Monocytes/100 WBC (Bld) 7.1 % Normal [facility] Comment on above: Order Comment: Speci men Type: BLOOD SPECIMENOrdering Facility: [facility] Address: [facility] [place] [address] Performed By: #### 5 7782-5 ####[facility]SWNCLIA [id number] [place] [address] [place] [facility] LABCLIA [id number] [place] [address] [place]#### STFREV ####[facility] LABCLIA [id number] [place] [id number] [place] Neutrophils (Bld) [#/Vol] 5.95 10*3/uL Normal 1.45-7.50 [facility] Comment on above: Order Comment: Speci men Type: BLOOD SPECIMENOrdering Facility: [facility] Address: [address] [place] [id number] Performed By: #### 5 7782-5 ####[facility] MILLTOWNCLIA [id number] [place] [address] [place] [facility] LABCLIA [id number] [place] [address] [place]#### STFREV ####[facility] LABCLIA [id number] [place] [id number] [place] Neutrophils/100 WBC (Bld) 67.4 % Normal [facility] Comment on above: Order Comment: Speci men Type: BLOOD SPECIMENOrdering Facility: [facility] Address: [address] [place] [address] Performed By: #### 5 7782-5 ####[facility] MILLTOWNCLIA [id number] [place] [address] [place] [facility] LABCLIA [id number] [place] [address] [place]#### STFREV ####[facility] LABCLIA [id number] [place] [address] [place] Platelet mean volume (Bld) [Entitic vol] 10.1 fL Normal 9.0-12.7 [facility] Comment on above: Order Comment: Speci men Type: BLOOD SPECIMENOrdering Facility: [facility] Address: [address] [place] [address] Performed By: #### 5 7782-5 ####[facility] MILLWNCLIA [id number] [place] [address] [place] [facility] LABCLIA [id number] [place] [address] [place]#### STFREV ####[facility] LABCLIA [id number] [place] [address] [place] Platelets (Bld) [#/Vol] 282 10*3/uL Normal 150-400 [facility] Comment on above: Order Comment: Speci men Type: BLOOD SPECIMENOrdering Facility: [facility] Address: [address] [place], [place] [address] Performed By: #### 5 7782-5 ####[facility] MILLTOWNCLIA [id number] [place] [address] [place] [facility] LABCLIA [id number] [place] [address] [place]#### STFREV ####[facility] LABIA [id number] [place] [address] [place] RBC (Bld) [#/Vol] 5.31 10*6/uL High 3.90-5.20 [facility] Comment on above: Order Comment: Speci men Type: BLOOD SPECIMENOrdering Facility: [facility] Address: [address] [place] [address] Performed By: #### 5 7782-5 ####[facility] [id number] [address] [place] [facility] LABCLIA [id number] [place] [address] [place]#### STFREV ####[facility] LABIA [id number] [place] [address] [place] WBC (Bld) [#/Vol] 8.74 10*3/uL Normal 3.70-11.00 [facility] Comment on above: Order Comment: Speci men Type: BLOOD SPECIMENOrdering Facility: [facility] Address: [address] [place] [address] Performed By: #### 5 7782-5 ####[facility] [id number] [address] [place] [facility] LABCLIA [id number] [place] [address] [place]#### STFREV ####[facility] LABIA [id number] [place] [address] [place] CNOVSPon 03-19-2024 CNOVSP Normal [facility] EPO SerPl-aCncon 03-19-2024 Erythropoietin (EPO) Qn 10.2 mIU/mL Normal 2.6-18.5 [facility] Comment on above: Order Comment: Speci men Type: BLOOD SPECIMENOrdering Facility: [facility] Address: [address] [place] [address] [place] [address] Performed By: #### 1 5061-5 ####[facility] LABCLIA [id number] [facility] [id number] MYELOPROLIFERATIVE NEOPLASM PANEL BLOODon 03-19-2024 MYELOPROLIFERATIVE NEOPLASM PNL PERIPHERAL BLOOD Normal [facility] Comment on above: Order Comment: Speci men Type: BLOOD SPECIMENOrdering Facility: [facility] Address: [address] [place] [address] Result Comment: Myel oproliferative Neoplasm PanelLaboratory Accession Number: [id number] Type: Peripheral BloodResult:CALR - No variant detected (Reference sequence: [id number]).JAK2 - No variant detected (Reference sequence: [id number]).MPL - No variant detected (Reference sequence: [id number]).Interpretation:No variants were identified in CALR exon 9, JAK2 exons 12-16 or MPLexons 10 and 11. This result does not exclude the possibility of amyeloproliferative neoplasm. If clinically indicated, additionaltesting for a broader panel of myeloid neoplasm-associated mutations(i.e., Hematologic Neoplasms NGS panel) may be helpful to furtherassess for clonal hematopoiesis.Methodology:Genomic DNA extracted from blood or bone marrow was subject to anamplicon based method to enrich for CALR exon 9, JAK2 exons 12-16 andMPL exons 10 and 11, including the flanking canonical splicing sites.Pair-end DNA sequencing was performed on the [employer] instrument ([facility], [place]). A customized bioinformatic pipeline was used to align thesequencing reads to the reference human genome (GRCh37/hg19). Benigncommon polymorphisms are not reported.Limitations:Sequence changes outside the analyzed regions, including intronic,noncoding, and splice-site variants, will not be identified by thistest. The lower limit of detection of this assay is approximately 1%allele proportion for the JAK2 V617F, JAK2 exon 12, CALR Type 1(p.A137Wzj61, c.1099_1150del) and Type 2 (p.P102Wxo59,c.1154_1155insTTGTC), MPL W515 variants and approximately 5% alleleproportion for all other variants. Variants below these limits ofdetection may be reported at the discretion of the molecular pathologyprofessional staff if the technical quality of the sequencing issufficient at that location and the call is unequivocal. Commongermline polymorphisms are considered to represent wild type sequenceand are not included in this report. The presence of nucleotidepolymorphisms or variants at the annealing sites of the primers usedin amplification and sequencing may cause allele drop-outs, hence afalse negative result is possible.Disclaimer:This test was developed and its performance characteristics determinedby [facility]'s Pathology and [facility] Medicine Department. Ithas not been cleared or approved by the FDA. [facility] is regulated under CLIAas certified to perform high-complexity testing. This test is used forclinical purposes. It should not be regarded as investigational or forresearch.Testing and interpretation performed at [facility], [address] [place] [address]. CLIA Number: [id number]:1) Klaudiaer DA, Ornicolei A, Shineerbuckan R, Vane J, Borowitz MJ, Olena Hua MM,et al. The 2016 revision to the World Health Organization (WHO)classification of myeloid neoplasms and acute leukemia. Fpxqk7010;127: 2391-405.2) NCCN Guidelines, Myeloproliferative Neoplasms, Version 2.2018.3) Tamika K, Maxi CASTILLO. Genomics of Myeloproliferative Neoplasms. J ClinOncol. 2017 Jul 02;35(9):947-954.As reviewed by Sim Vang MD Performed By: #### M PNP ####[facility] LIMSCLIA [id number] [place] [address] [place] PATHOLOGIST INTERPRETATION C BC/DIFFon 03-19-2024 Therapeutic Program Worker review Juan (Unsp spec) [Interp] No review performed. Normal [facility] Comment on above: Order Comment: Speci men Type: BLOOD SPECIMENOrdering Facility: [facility] Address: [address] [place] [address] Performed By: #### 5 7782-5 ####[facility]CL[facility] [id number] [address] [facility] LABCLIA [id number] [address] [place]#### STFREV ####[facility] LABCLIA [id number] [address] [place] STAFF REVIEW, CBCDIF Normal [facility] Comment on above: Order Comment: Speci men Type: BLOOD SPECIMENOrdering Facility: [facility] Address: [address] [place] [address] Result Comment: The Pathologist Interpretation on this sample was cancelled because the hematology analyzer did not flag any parameters as requiring manual review. If there is a specific clinical concern for which you would like a pathologist to review the blood smear, please call Lab Client Services within 28 days. Performed By: #### 5 7782-5 ####[facility]CL[facility] [id number] [address] [facility] LABCLIA [id number] [address] [place]#### STFREV ####[facility] LABCLIA [id number] [place] [address] [place] CNPNon 03-13-2024 CNPN Normal [facility] LIPID PANEL, NONFASTINGon Cholesterol [Mass/Vol] 224 mg/dL High NINF - 200 mg/dL [facility] Comment on above: <200 mg/dL, Desirabl e 200-239 mg/dL, Borderline high >239 mg/dL, High HDL Cholesterol, Nonfasting 62 mg/dL 39 - PINF mg/dL [facility] Comment on above: 40-59 mg/dL, Accepta ble >59 mg/dL, High: Negative risk factor for coronary heart disease <40 mg/dL, Low: Positive risk factor for coronary heart disease Interpretation and review of laboratory results Abnormal [facility] LDL Cholesterol, Nonfasting 122 mg/dL High NINF - 100 mg/dL [facility] Comment on above: <100 mg/dL, Optimal 100-129 mg/dL, Near optimal/above optimal 130-159 mg/dL, Borderline high 160-189 mg/dL, High >189 mg/dL, Very high Secondary prevention optimal LDL Cholesterol levels are recommended to be < 70 mg/dL LDL/HDL Ratio, Nonfasting 1.97 mg/dL NINF - 2.54 mg/dL [facility] Comment on above: Reference: 1. National Cholesterol Education Program ATP III Guideline At-A-Glance Quick Desk Reference: National Heart, Lung, and Blood Cobalt. National Institutes of Health. 2001: NIH Publication No. 01-3305. 2. An International Atherosclerosis Society position paper: global recommendations for the management of dyslipidemia: executive summary, Atherosclerosis. 2014: 232(2):410-413. Non HDL Cholesterol, Nonfasting 162 mg/dL High NINF - 130 mg/dL [facility] Comment on above: <130 mg/dL, Optimal 130-159 mg/dL, Near optimal/above optimal 160-189 mg/dL, Borderline high 190-219 mg/dL, High >219 mg/dL, Very high Secondary prevention optimal non HDL Cholesterol levels are recommended to be <100 mg/dL Total Chol/HDL Ratio, Nonfasting 3.61 mg/dL NINF - 5.10 mg/dL [facility] Triglycerides, Nonfasting 199 mg/dL High NINF - 150 mg/dL [facility] Comment on above: <150 mg/dL, Normal 150-199 mg/dL, Borderline high 200-499 mg/dL, High >499 mg/dL, Very high VLDL Cholesterol, Nonfasting 40 mg/dL High NINF - 30 mg/dL [facility] THYROID STIMULATING HORMONEo n 03-11-2024 TSH Qn 1.980 m[IU]/L [facility] TSH Qnon 03-11-2024 Interpretation and review of laboratory results Normal [facility] CNCOon 03-10-2024 CNCO Letter Text Normal [facility] CNOVon 03-10-2024 CNOV Normal [facility] LIPID PANEL, NONFASTINGon Cholesterol [Mass/Vol] 224 mg/dL High <200 [facility] Comment on above: Order Comment: Speci men Type: BLOOD SPECIMENOrdering Facility: [facility] Address: [address] [place] [address] Result Comment: <200 mg/dL, Desirable 200-239 mg/dL, Borderline high>239 mg/dL, High Performed By: #### 3 016-3, LIPNF ####[facility] LABCLIA [id number] [place] [address] [place] HDL CHOLESTEROL, NF 62 mg/dL Normal >39 [facility] Comment on above: Order Comment: Speci men Type: BLOOD SPECIMENOrdering Facility: [facility] Address: [address] [place] [address] Result Comment: 40-5 9 mg/dL, Acceptable>59 mg/dL, High: Negative risk factor for coronary heart disease<40 mg/dL, Low: Positive risk factor for coronary heart disease Performed By: #### 3 016-3, LIPNF ####[facility] LABCLIA [id number] [address] [place] LDL CHOLESTEROL, NF 122 mg/dL High <100 [facility] Comment on above: Order Comment: Speci men Type: BLOOD SPECIMENOrdering Facility: [facility] Address: [address] [place] [address] Result Comment: <100 mg/dL, Optimal 100-129 mg/dL, Near optimal/above optimal 130-159 mg/dL, Borderline high 160-189 mg/dL, High>189 mg/dL, Very highSecondary prevention optimal LDL Cholesterol levels are recommended to be < 70 mg/dL Performed By: #### 3 016-3, LIPNF ####[facility] LABCLIA [id number] [place] [address] [place] LDL/HDL RATIO, NF 1.97 mg/dL Normal <2.54 [facility] Comment on above: Order Comment: Speci men Type: BLOOD SPECIMENOrdering Facility: [facility] Address: [address] [place] [address] Result Comment: Kiko perez:1. National Cholesterol Education Program ATP III Guideline At-A-Glance Quick Desk Reference: National Heart, Lung, and Blood Cobalt. National Institutes of Health. 2001: NIH Publication No. 01-3305.2. An International Atherosclerosis Society position paper: global recommendations for the management of dyslipidemia: executive summary, Atherosclerosis. 2014: 232(2):410-413. Performed By: #### 3 016-3, LIPNF ####[facility] LABCLIA [id number] [place] [address] [place] NON HDL CHOL, NF 162 mg/dL High <130 [facility] Comment on above: Order Comment: Speci men Type: BLOOD SPECIMENOrdering Facility: [facility] Address: [address] [place] [address] Result Comment: <130 mg/dL, Optimal 130-159 mg/dL, Near optimal/above optimal 160-189 mg/dL, Borderline high 190-219 mg/dL, High>219 mg/dL, Very highSecondary prevention optimal non HDL Cholesterol levels are recommended to be <100 mg/dL Performed By: #### 3 016-3, LIPNF ####[facility] LABCLIA [id number] [address] [place] T CHOL/HDL RATIO NF 3.61 mg/dL Normal <5.10 [facility] Comment on above: Order Comment: Speci men Type: BLOOD SPECIMENOrdering Facility: [facility] Address: [address] [place] [address] Performed By: #### 3 016-3, LIPNF ####[facility] LABCLIA [id number] [place] [address] [place] TRIGLYCERIDES, NF 199 mg/dL High <150 [facility] Comment on above: Order Comment: Speci men Type: BLOOD SPECIMENOrdering Facility: [facility] Address: [address] [place] [address] Result Comment: <150 mg/dL, Normal 150-199 mg/dL, Borderline high 200-499 mg/dL, High>499 mg/dL, Very high Performed By: #### 3 016-3, LIPNF ####[facility] LABCLIA [id number] [place] [address] [place] VLDL CHOLESTEROL, NF 40 mg/dL High <30 [facility] Comment on above: Order Comment: Speci men Type: BLOOD SPECIMENOrdering Facility: [facility] Address: [address] [place] [address] Performed By: #### 3 016-3, LIPNF ####[facility] LABCLIA [id number] [place] [address] [place] TSH SerPl-aCncon 03-10-2024 TSH Qn 1.980 m[IU]/L Normal 0.270-4.200 [facility] Comment on above: Order Comment: Speci men Type: BLOOD SPECIMENOrdering Facility: [facility] Address: [address] [place] [address] Performed By: #### 3 016-3, LIPNF ####[facility] LABCLIA [id number] [place] [address] [place] ANES POSTPROC EVALon 024 ANES POSTPROC EVAL Normal [facility] ANES PRE-OPon 03-06-2024 ANES PRE-OP Normal [facility] Bronchoscopyon 03-06-2024 Bronchoscopy Normal [facility] CYTOLOGY NON-GYNon ADEQUACY INTERPRETATION Normal [facility] Comment on above: Order Comment: Speci men Type: SPECIMEN OBTAINED BY ASPIRATIONOrdering Facility: [facility] Address: [address] [place] [address] Result Comment: A: # 1 Rare atypical cells consistent with carcinoma with clear cell features #2,3,4 Non-diagnosticB: #1,2,3 Non-diagnostic #4 Limited lymphoid sampleDr. Jerrell Hightower // Gerardo Ibrahim letter in the above intra-procedural assessment refers to a unique site. The specific site is indicated in the final diagnosis portion of the report. Each number in this assessment references a discrete evaluation episode.Intra-procedural assessment performed at [facility], [address] [place] [address] Performed By: #### C YTONON ####[facility] LABCLIA [id number] [place] [address] [place] CASE REPORT Normal [facility] Comment on above: Order Comment: Speci men Type: SPECIMEN OBTAINED BY ASPIRATIONOrdering Facility: [facility] Address: [address] [place] [address] Result Comment: [facility] Cytology Report Case: [id number] Provider: Philippe Pena MD Collected: 03/06/2024 09:40 AMOrdering Location: Admitting Received: 03/06/2024 11:41 AMPathologist: Angelito Hightower MDSpecimens: A) - Lymph Node, Transbronchial, 4R B) - Lymph Node, Transbronchial, Station 7 Performed By: #### C YTONON ####[facility] LABCLIA [id number] [place] [address] [place] CLINICAL HISTORY Renal cell carcinoma Normal [facility] Comment on above: Order Comment: Speci men Type: SPECIMEN OBTAINED BY ASPIRATIONOrdering Facility: [facility] Address: [address] [place] [address] Performed By: #### C YTONON ####[facility] LABCLIA [id number] [place] [address] [place] DIAGNOSIS COMMENT A. The cytologic fin dings were correlated with corresponding surgical biopsy ([id number], 03/06/2024) and showed similar findings. Normal [facility] Comment on above: Order Comment: Speci men Type: SPECIMEN OBTAINED BY ASPIRATIONOrdering Facility: [facility] Address: [address] [place] [address] Performed By: #### C YTONON ####[facility] LABCLIA [id number] [place] [address] [place] FINAL DIAGNOSIS Normal [facility] Comment on above: Order Comment: Speci men Type: SPECIMEN OBTAINED BY ASPIRATIONOrdering Facility: [facility] Address: [address] [place] [address] Result Comment: A - Lymph Node, Transbronchial, Aspirate/Fine Needle Aspirate - 4R Positive for malignant cells. Carcinoma with clear cell features, consistent with metastatic renal cell carcinoma. See comment.B - Lymph Node, Transbronchial, Aspirate/Fine Needle Aspirate - Station 7 Negative for malignant cells. Benign lymphoid sample.The following cell blocks were associated with this case:A1 Cell Block, Alcohol FixedB1 Cell Block, Alcohol Fixed Performed By: #### C YTONON ####[facility] LABCLIA [id number] [place] [address] [place] FINAL PERFORMING LAB Normal [facility] Comment on above: Order Comment: Speci men Type: SPECIMEN OBTAINED BY ASPIRATIONOrdering Facility: [facility] Address: [address] [place] [address] Result Comment: Tech nical component, bat boy/girl screening performed at [facility], [address] [place] [address] CLIA# [id number] interpretation performed at [facility], [address] [place] [address] CLIA# [id number] Director: Danis Spangler M.D. Performed By: #### C YTONON ####[facility] LABCLIA [id number] [place] [address] [place] GROSS DESCRIPTION Normal [facility] Comment on above: Order Comment: Speci men Type: SPECIMEN OBTAINED BY ASPIRATIONOrdering Facility: [facility] Address: [address] [place] [address] Result Comment: A. L ymph Node, Yhsqqvgdepalmk87 cc opaque red CytoLyt with material. ThinPrep and Cell Block prepared and 8 smears (4 air dried and 4 fixed).B. Lymph Node, Rgqvuggqffnngw61 cc hazy red CytoLyt with material. ThinPrep and Cell Block prepared and 8 smears (4 air dried and 4 fixed). Performed By: #### C YTONON ####[facility] LABCLIA [id number] [place] [address] [place] NURSING PROGon 03-06-2024 NURSING PROG Normal [facility] SURGICAL PATHOLOGYon 024 CASE REPORT Normal [facility] Comment on above: Order Comment: Speci men Type: TISSUE SPECIMENOrdering Facility: [facility] Address: [address] [place] [address] Result Comment: Surg ical Pathology Report Case: [id number] Provider: Philippe Pena MD Collected: 03/06/2024 10:44 AMOrdering Location: Admitting Received: 03/06/2024 07:39 PMPathologist: Allie German MD, PhDSpecimen: Lymph Node, Biopsy, 4R Core Biopsy Performed By: #### S ####[facility] LABCLIA [id number] [place] [address] [place] DIAGNOSIS COMMENT Normal [facility] Comment on above: Order Comment: Speci men Type: TISSUE SPECIMENOrdering Facility: [facility] Address: [address] [place] [address] Result Comment: A. I mmunohistochemical stains show that the tumor cells are positive for CAM5.2 and PAX8 and are negative for TTF-1 and p40. These findings are consistent with the above diagnosis.This case was also reviewed by Dr. Felix Meyer, Genitourinary pathologist, who agrees with the above interpretation.Laboratory Developed Test (LDT) Disclaimer:Performance characteristics of immunohistochemical, immunofluorescent and chromogenic in-situ hybridization tests have been determined by the performing laboratory within [facility]???s [facility] Department ([facility], [facility], [facility], [facility], [facility], [facility]) in a manner consistent with CLIA requirements. One or more of these tests have not been cleared or approved by the FDA. [facility] is regulated under CLIA as qualified to perform high-complexity testing. These tests are used for clinical purposes. They should not be regarded as investigational or for research. Positive and negative controls stain appropriately. Performed By: #### S ####[facility] LABCLIA [id number] [address] FINAL DIAGNOSIS Normal [facility] Comment on above: Order Comment: Speci men Type: TISSUE SPECIMENOrdering Facility: [facility] Address: [address] [place] [address] Result Comment: Leeanne thomasph node, 4R, biopsy:- Metastatic carcinoma, consistent with renal origin (see comment). Performed By: #### S ####[facility] LABCLIA [id number] [address] STATES OF [facility] FINAL PERFORMING LAB Normal [facility] Comment on above: Order Comment: Speci men Type: TISSUE SPECIMENOrdering Facility: [facility] Address: [address] [place] [address] Result Comment: Diag nostic interpretation performed at [facility], [address] [place] [address] CLIA# [id number] Director: Danis Spangler M.D. Performed By: #### S ####[facility] LABCLIA [id number] [address] [place] GROSS DESCRIPTION Normal [facility] Comment on above: Order Comment: Speci men Type: TISSUE SPECIMENOrdering Facility: [facility] Address: [address] [place] [address] Result Comment: Leeanne Ballesteros ymph Node, BiopsyReceived in formalin multiple segments of cylindrical tissue aggregating to 2.8 x 0.7 x 0.1 cm, red-brown and of a soft and friable consistency. Totally submitted in one cassette.JCDM March 06, 2024 8:01 PMGross examination performed at [facility], [address] [place] [address] Performed By: #### S ####[facility] LABCLIA [id number] [place] [address] [place] Basic metabolic 2000 panelon 03-02-2024 Anion gap [Moles/Vol] 11 mmol/L Normal 8-15 [facility] Comment on above: Order Comment: Speci men Type: BLOOD SPECIMENOrdering Facility: [facility] Address: [address] [place] [address] Performed By: #### 2 4321-2 ####[facility] LABCLIA [id number] [place] [address] [place] Calcium [Mass/Vol] 10.1 mg/dL Normal 8.5-10.2 [facility] Comment on above: Order Comment: Speci men Type: BLOOD SPECIMENOrdering Facility: [facility] Address: [address] [place] [address] Performed By: #### 2 4321-2 ####[facility] LABCLIA [id number] [place] [address] [place] Chloride [Moles/Vol] 104 mmol/L Normal 98-107 [facility] Comment on above: Order Comment: Speci men Type: BLOOD SPECIMENOrdering Facility: [facility] Address: [address] [place] [address] Performed By: #### 2 4321-2 ####[facility] LABCLIA [id number] [place] [id number] [place] CO2 [Moles/Vol] 26 mmol/L Normal 22-30 [facility] Comment on above: Order Comment: Speci men Type: BLOOD SPECIMENOrdering Facility: [facility] Address: [address] [place] [address] Performed By: #### 2 4321-2 ####[facility] LABIA [id number] [address] [address] [place] Creatinine [Mass/Vol] 0.98 mg/dL High 0.58-0.96 [facility] Comment on above: Order Comment: Yecenia whiteside Type: BLOOD SPECIMENOrdering Facility: [facility] Address: [address] [place] [address] Performed By: #### 2 4321-2 ####[facility] LABIA [id number] [place] [address] [place] Creatinine and Glomerular filtration rate.predicted panel (S/P/Bld) 57 mL/min/1.73m??? Low >=60 [facility] Comment on above: Order Comment: Yecenia whiteside Type: BLOOD SPECIMENOrdering Facility: [facility] Address: [address] [place] [address] Result Comment: Nicolle mated Glomerular Filtration Rate (eGFR) is calculated using the 2020 CKD-EPI creatinine equation. This equation utilizes serum creatinine, sex, and age as parameters. The creatinine assay has traceable calibration to isotope dilution-mass spectrometry. Refer to KDIGO guidelines for clinical interpretation. In patients with unstable renal function, e.g. those with acute kidney injury, the eGFR may not accurately reflect actual GFR. Performed By: #### 2 4321-2 ####[facility] LABIA [id number] [place] [address] [place] Glucose [Mass/Vol] 86 mg/dL Normal 74-99 [facility] Comment on above: Order Comment: Yecenia whiteside Type: BLOOD SPECIMENOrdering Facility: [facility] Address: [address] [place] [address] Result Comment: The [place] Diabetes Association (ADA) provides guidance for cutoff values for fasting glucose and random glucose. The ADA defines fasting as no caloric intake for at least 8 hours. Fasting plasma glucose results between 100 to 125 mg/dL indicate increased risk for diabetes (prediabetes).Fasting plasma glucose results greater than or equal to 126 mg/dL meet the criteria for diagnosis of diabetes. In the absence of unequivocal hyperglycemia, results should be confirmed by repeat testing. In a patient with classic symptoms of hyperglycemia or hyperglycemic crisis, random plasma glucose results greater than or equal to 200 mg/dL meet the criteria for diagnosis of diabetes.Reference: Standards of Medical Care in Diabetes 2016, [place] Diabetes Association. Diabetes Care. 2016.39(Suppl 1). Performed By: #### 2 4321-2 ####[facility] LABCLIA [id number] [place] [address] [place] Potassium [Moles/Vol] 4.9 mmol/L Normal 3.7-5.1 [facility] Comment on above: Order Comment: Pasqualei stevo Type: BLOOD SPECIMENOrdering Facility: [facility] Address: [address] [place] [address] Performed By: #### 2 4321-2 ####[facility] LABIA [id number] [place] [address] [place] Sodium [Moles/Vol] 141 mmol/L Normal 136-144 [facility] Comment on above: Order Comment: Pasqualei stevo Type: BLOOD SPECIMENOrdering Facility: [facility] Address: [address] [place] [address] Performed By: #### 2 4321-2 ####[facility] LABCLIA [id number] [place] [address] [place] Urea nitrogen [Mass/Vol] 18 mg/dL Normal 7-21 [facility] Comment on above: Order Comment: Speci men Type: BLOOD SPECIMENOrdering Facility: [facility] Address: [address] [place] [address] Performed By: #### 2 4321-2 ####[facility] LABCLIA [id number] [place] [address] [place] CBC W Auto Differential pane l (Bld)on 03-02-2024 Basophils (Bld) [#/Vol] 0.03 10*3/uL Normal <0.11 [facility] Comment on above: Order Comment: Speci men Type: BLOOD SPECIMENOrdering Facility: [facility] Address: [address] [place] [address] Performed By: #### 5 7021-8 ####[facility] LABCLIA [id number] [place] [address] [place] Basophils/100 WBC (Bld) 0.5 % Normal [facility] Comment on above: Order Comment: Speci men Type: BLOOD SPECIMENOrdering Facility: [facility] Address: [address] [place] [address] Performed By: #### 5 7021-8 ####[facility] LABCLIA [id number] [place] [address] [place] Differential cell count method Nom (Bld) Auto Normal [facility] Comment on above: Order Comment: Speci men Type: BLOOD SPECIMENOrdering Facility: [facility] Address: [address] [place] [address] Performed By: #### 5 7021-8 ####[facility] LABCLIA [id number] [place] [address] [place] Eosinophils (Bld) [#/Vol] 0.61 10*3/uL High <0.46 [facility] Comment on above: Order Comment: Speci men Type: BLOOD SPECIMENOrdering Facility: [facility] Address: [address] [place] [address] Performed By: #### 5 7021-8 ####[facility] LABCLIA [id number] [place] [address] [place] Eosinophils/100 WBC (Bld) 9.2 % Normal [facility] Comment on above: Order Comment: Speci men Type: BLOOD SPECIMENOrdering Facility: [facility] Address: [address] [place] [address] Performed By: #### 5 7021-8 ####[facility] LABCLIA [id number] [place] [address] [place] Erythrocyte distribution width (RBC) [Ratio] 12.8 % Normal 11.5-15.0 [facility] Comment on above: Order Comment: Speci men Type: BLOOD SPECIMENOrdering Facility: [facility] Address: [address] [place] [address] Performed By: #### 5 7021-8 ####[facility] LABCLIA [id number] [place] [address] [place] Hematocrit (Bld) [Volume fraction] 50.0 % High 36.0-46.0 [facility] Comment on above: Order Comment: Speci men Type: BLOOD SPECIMENOrdering Facility: [facility] Address: [address] [place] [address] Performed By: #### 5 7021-8 ####[facility] LABCLIA [id number] [place] [address] [place] Hemoglobin (Bld) [Mass/Vol] 16.3 g/dL High 11.5-15.5 [facility] Comment on above: Order Comment: Speci men Type: BLOOD SPECIMENOrdering Facility: [facility] Address: [address] [place] [address] Performed By: #### 5 7021-8 ####[facility] LABIA [id number] [place] [address] [place] Immature granulocytes (Bld) [#/Vol] 10*3/uL Normal <0.10 [facility] Comment on above: Order Comment: Speci men Type: BLOOD SPECIMENOrdering Facility: [facility] Address: [address] [place] [address] Performed By: #### 5 7021-8 ####[facility] LABCLIA [id number] [place] [address] [place] Immature granulocytes/100 WBC (Bld) 0.2 % Normal [facility] Comment on above: Order Comment: Speci men Type: BLOOD SPECIMENOrdering Facility: [facility] Address: [address] [place] [address] Performed By: #### 5 7021-8 ####[facility] LABCLIA [id number] [place] [address] [place] Lymphocytes (Bld) [#/Vol] 1.81 10*3/uL Normal 1.00-4.00 [facility] Comment on above: Order Comment: Speci men Type: BLOOD SPECIMENOrdering Facility: [facility] Address: [address] [place] [address] Performed By: #### 5 7021-8 ####[facility] LABCLIA [id number] [place] [address] [place] Lymphocytes/100 WBC (Bld) 27.2 % Normal [facility] Comment on above: Order Comment: Speci men Type: BLOOD SPECIMENOrdering Facility: [facility] Address: [address] [place] [address] Performed By: #### 5 7021-8 ####[facility] LABCLIA [id number] [place] [address] [place] MCH (RBC) [Entitic mass] 30.8 pg Normal 26.0-34.0 [facility] Comment on above: Order Comment: Speci men Type: BLOOD SPECIMENOrdering Facility: [facility] Address: [address] [place] [address] Performed By: #### 5 7021-8 ####[facility] LABCLIA [id number] [place] [address] [place] MCHC (RBC) [Mass/Vol] 32.6 g/dL Normal 30.5-36.0 [facility] Comment on above: Order Comment: Speci men Type: BLOOD SPECIMENOrdering Facility: [facility] Address: [address] [place] [address] Performed By: #### 5 7021-8 ####[facility] LABCLIA [id number] [place] [address] [place] MCV (RBC) [Entitic vol] 94.3 fL Normal 80.0-100.0 [facility] Comment on above: Order Comment: Speci men Type: BLOOD SPECIMENOrdering Facility: [facility] Address: [address] [place] [address] Performed By: #### 5 7021-8 ####[facility] LABIA [id number] [place] [address] [place] Monocytes (Bld) [#/Vol] 0.61 10*3/uL Normal <0.87 [facility] Comment on above: Order Comment: Speci men Type: BLOOD SPECIMENOrdering Facility: [facility] Address: [address] [place] [address] Performed By: #### 5 7021-8 ####[facility] LABIA [id number] [place] [address] [place] Monocytes/100 WBC (Bld) 9.2 % Normal [facility] Comment on above: Order Comment: Speci men Type: BLOOD SPECIMENOrdering Facility: [facility] Address: [address] [place] [address] Performed By: #### 5 7021-8 ####[facility] LABIA [id number] [place] [address] [place] Neutrophils (Bld) [#/Vol] 3.58 10*3/uL Normal 1.45-7.50 [facility] Comment on above: Order Comment: Speci men Type: BLOOD SPECIMENOrdering Facility: [facility] Address: [address] [place] [address] Performed By: #### 5 7021-8 ####[facility] LABCLIA [id number] [place] [address] [place] Neutrophils/100 WBC (Bld) 53.7 % Normal [facility] Comment on above: Order Comment: Speci men Type: BLOOD SPECIMENOrdering Facility: [facility] Address: [address] [place] [address] Performed By: #### 5 7021-8 ####[facility] LABIA [id number] [place] [address] [place] Nucleated RBC (Bld) [#/Vol] 10*3/uL Normal <0.01 [facility] Comment on above: Order Comment: Speci men Type: BLOOD SPECIMENOrdering Facility: [facility] Address: [address] [place] [address] Performed By: #### 5 7021-8 ####[facility] LABIA [id number] [place] [address] [place] Nucleated RBC/100 WBC (Bld) [Ratio] 0.0 /100 WBC Normal [facility] Comment on above: Order Comment: Speci men Type: BLOOD SPECIMENOrdering Facility: [facility] Address: [address] [place] [address] Performed By: #### 5 7021-8 ####[facility] LABIA [id number] [place] [address] [place] Platelet mean volume (Bld) [Entitic vol] 10.6 fL Normal 9.0-12.7 [facility] Comment on above: Order Comment: Speci men Type: BLOOD SPECIMENOrdering Facility: [facility] Address: [address] [place] [address] Performed By: #### 5 7021-8 ####[facility] LABIA [id number] [place] [address] [place] Platelets (Bld) [#/Vol] 254 10*3/uL Normal 150-400 [facility] Comment on above: Order Comment: Speci men Type: BLOOD SPECIMENOrdering Facility: [facility] Address: [address] [place] [address] Performed By: #### 5 7021-8 ####[facility] LABIA [id number] [place] [id number] [place] RBC (Bld) [#/Vol] 5.30 10*6/uL High 3.90-5.20 [facility] Comment on above: Order Comment: Speci men Type: BLOOD SPECIMENOrdering Facility: [facility] Address: [address] [place] [address] Performed By: #### 5 7021-8 ####[facility] LABIA [id number] [place] [id number] [place] WBC (Bld) [#/Vol] 6.65 10*3/uL Normal 3.70-11.00 [facility] Comment on above: Order Comment: Speci men Type: BLOOD SPECIMENOrdering Facility: [facility] Address: [address] [place] [address] Performed By: #### 5 7021-8 ####[facility] LABIA [id number] [place] [address] [place] CNOVon 03-02-2024 CNOV Normal [facility] ECG COMPLETEon 03-02-2024 ECG COMPLETE Normal [facility] NURSING PROGon 03-02-2024 NURSING PROG Normal [facility] CNPNon 02-19-2024 CNPN Normal [facility] CREATININE BLDOrdered By: Aleksey Manzanares on 02-14-2024 Creatinine [Mass/Vol] 0.89 mg/dL 0.58 - 0.96 mg/dL [facility] GFR/1.73 sq M.predicted among non-blacks MDRD (S/P/Bld) [Vol rate/Area] 64 mL/min/{1.73_m2} - PINF [facility] Comment on above: Estimated Glomerular Filtration Rate (eGFR) is calculated using the 2020 CKD-EPI creatinine equation. This equation utilizes serum creatinine, sex, and age as parameters. The creatinine assay has traceable calibration to isotope dilution-mass spectrometry. Refer to KDIGO guidelines for clinical interpretation. In patients with unstable renal function, e.g. those with acute kidney injury, the eGFR may not accurately reflect actual GFR. Interpretation and review of laboratory results Normal [facility] CT Chest W contrast Ean IMPRESSION: No CT evidence of acute abnormality. Slight increase in size of left lower lobe nodule which may be related to technique/slice selection. Surveillance recommended in 6-12 months. Biapical scarring. Small hiatal hernia. Cholelithiasis. Hepatic steatosis. Supervisor [employer]: ANNELISE Transcribe Date/Time: Feb 14 2024 12:56P Dictated by : NAKUL HODGES MD This examination was interpreted and the report reviewed and electronically signed by: NAKUL HODGES MD on Feb 14 2024 1:04PM [facility] DIVISION OF RADIOLOGY * * *Final Report* * * DATE OF EXAM: Feb 14 2024 12:21PM [facility] 0539 - CT CHEST W IVCON / PROCEDURE REASON: multiple diagnoses * * * * Physician Interpretation * * * * EXAMINATION: CHEST CT WITH CONTRAST CLINICAL HISTORY: Mediastinal mass/chest pain Technique: Spiral CT acquisition of the chest from the thoracic inlet to the upper abdomen following IV contrast. MQ: CTCW_6 Contrast: 50 mL Omnip[address] Radiation dose: Integrated Dose-length product (DLP) for this visit = 204 mGy*cm CT Dose Reduction Employed: Automated exposure control(AEC) and iterative recon Comparison: Abdominal CT of 07/31/2023 from an outside institution. RESULT: Limitations: None. Lines, tubes, and devices: None. Lung parenchyma and airways: Pleural parenchymal scarring within the lung apices. Mild central bronchointerstitial prominence with no focal abnormality seen. Left lower lobe nodule, 7:123, measures 7 mm, measuring 5 mm on prior study of 07/31/2023 No consolidation. No suspicious pulmonary nodule. The central airways are patent. Pleural space: No pleural effusion. No pleural thickening. Lower neck, lymph nodes, and mediastinum: The imaged thyroid gland is normal. No lymphadenopathy in the supraclavicular, axillary, mediastinal, or hilar regions. Small hiatal hernia. Heart, pericardium, and thoracic vessels: The thoracic aorta and main pulmonary artery are normal in caliber. The cardiac chambers are normal in size. Coronary artery atherosclerotic calcifications are noted, although the study is not optimized for coronary assessment. No pericardial effusion or thickening. Bones and soft tissues: Loss of height of the T9 vertebral body.. Chest wall is unremarkable. Upper abdomen: Cholelithiasis. Hepatic steatosis. Localizer images: DIVISION OF RADIOLOGY Provider, Britni Rogel - 02/14/2024 * * *Final Report* * * DATE OF EXAM: Feb 14 2024 12:21PM [facility] 0539 - CT CHEST W IVCON / PROCEDURE REASON: multiple diagnoses * * * * Physician Interpretation * * * * EXAMINATION: CHEST CT WITH CONTRAST CLINICAL HISTORY: Mediastinal mass/chest pain Technique: Spiral CT acquisition of the chest from the thoracic inlet to the upper abdomen following IV contrast. MQ: CTCW_6 Contrast: 50 mL Omnipaque [address] Radiation dose: Integrated Dose-length product (DLP) for this visit = 204 mGy*cm CT Dose Reduction Employed: Automated exposure control(AEC) and iterative recon Comparison: Abdominal CT of 07/31/2023 from an outside institution. RESULT: Limitations: None. Lines, tubes, and devices: None. Lung parenchyma and airways: Pleural parenchymal scarring within the lung apices. Mild central bronchointerstitial prominence with no focal abnormality seen. Left lower lobe nodule, 7:123, measures 7 mm, measuring 5 mm on prior study of 07/31/2023 No consolidation. No suspicious pulmonary nodule. The central airways are patent. Pleural space: No pleural effusion. No pleural thickening. Lower neck, lymph nodes, and mediastinum: The imaged thyroid gland is normal. No lymphadenopathy in the supraclavicular, axillary, mediastinal, or hilar regions. Small hiatal hernia. Heart, pericardium, and thoracic vessels: The thoracic aorta and main pulmonary artery are normal in caliber. The cardiac chambers are normal in size. Coronary artery atherosclerotic calcifications are noted, although the study is not optimized for coronary assessment. No pericardial effusion or thickening. Bones and soft tissues: Loss of height of the T9 vertebral body.. Chest wall is unremarkable. Upper abdomen: Cholelithiasis. Hepatic steatosis. Localizer images: IMPRESSION IMPRESSION: No CT evidence of acute abnormality. Slight increase in size of left lower lobe nodule which may be related to technique/slice selection. Surveillance recommended in 6-12 months. Biapical scarring. Small hiatal hernia. Cholelithiasis. Hepatic steatosis. Supervisor [employer]: ANNELISE Transcribe Date/Time: Feb 14 2024 12:56P Dictated by : NAKUL HODGES MD This examination was interpreted and the report reviewed and electronically signed by: NAKUL HODGES MD on Feb 14 2024 1:04PM EST [facility] Radiology Study observation (narrative) [facility] CT Chest W contrast IVOrderholly land By: Ccf Provider on 02-14-2024 [facility] Surgery Visit Reporton 02-04 Surgery Visit Report [facility] [address] [place] [address] OFFICE VISIT Date of Service: 02/05/24 MR#: [id number] Acct: [id number] Name: DEANGELO BEACH Rep #: [id number] : 1940 Provider: Dr. Jf parrish MD Age/Sex: 84/F [place] [facility] [place] Status: Signed Intake Vital Signs 01/28/24 14:08 02/05/24 12:48 Height 5 ft 6 in 5 ft 6 in Weight: 156 lb 3 oz 156 lb BMI 25.2 25.2 BP 131/79 H 121/72 H Blood Pressure Location Lt brachial Rt brachial Position Sitting Sitting Respiration 16 18 Pulse 112 H 105 H Pulse Source Monitor Temp 98.3 F Pulse Oximetry (%) 95 94 Oxygen Delivery Method room air room air Intake Visit Reasons: EXCISIONAL BIOPSY R GROIN ADENOPATHY Chief Complaint: F/u for mediastinal adenopathy on CT Electrophysiology Scientist Required: No Is patient in pain?: No Allergies Latex, Natural Rubber Allergy (Intermediate, Verified 02/05/24 12:49) Rash tizanidine Allergy (Verified 02/05/24 12:49) Rash Medications ???Medication ???Instructions ???Recorded ???Confirmed ???Type metoprolol succinate 25 mg 25 mg PO DAILY 12/27/22 02/05/24 History tablet,extended release 24 hr montelukast 10 mg tablet 10 mg PO QHS 12/27/22 02/05/24 History pravastatin 40 mg tablet 40 mg PO QHS 12/27/22 02/05/24 History diclofenac sodium 1 % topical gel 2 ea topical 4X/DAY PRN pain 07/31/23 02/05/24 History (scale score 4-6) hydrocortisone 2.5 % topical cream 1 applic topical BID PRN rash 7 12/07/23 02/05/24 Rx days #30 grams Have you fallen in the past year?: No PFSH Medical History Wears glasses Post-menopausal Lymph node enlargement Anxiety Bladder disease Anemia High cholesterol Back pain Difficulty swallowing History of GI bleed History of ulceration History of IBS Non-smoker Shortness of breath on exertion Asthma History of pain when walking History of edema Chronic cough Hyperlipemia Hypertension Cancer of kidney Surgical History Hx of left cataract extraction Hx of right cataract extraction Hx of colonoscopy H/O: hysterectomy H/O right nephrectomy Family History Other No pertinent family history Social History Smoking Status: Never smoker alcohol intake: never HPI HPI HPI: The patient is an 84-year-old female with a history of kidney cancer who presents today for an abnormality found on PET CT scan. This was thought to be potentially a lymph node in the right groin that led up under PET/CT. She denies any pain or concerns in the groin. No palpable lymphadenopathy. Shortly after the PET CT scan was performed, an ultrasound was performed of the right groin as well. This showed normal-appearing lymph nodes. Nonetheless, patient presents today for evaluation and discussion of possible right groin biopsy. She denies any recent or remote history of right groin infection or infection involving the right lower extremity that she can recall. ROS General General: Yes weight change and fatigue; No appetite, colon cancer, breast cancer or weakness HEENT HEENT: Yes difficulty swallowing, eye injury and eye surgery; No swollen glands or hoarseness Endo Endocrine: No thyroid disease, diabetes mellitus, thyroid cancer, Hair loss, heat intolerance or cold intolerance Skin Skin: Yes rash and changing moles Breast Breast: No left breast lump, right breast lump, nipple discharge, breast pain, abnormal mammogram, abnormal US or breast enlargement Musc Musculoskeletal: Yes back problems; No arthritis, rheumatoid arthritis, gout or joint pain Cardio Cardiovascular: Yes high blood pressure; No murmur, pacemaker, heart disease, atrial fibrillation, heart attack, heart stent, palpitations, shortness of breat with exertion or chest pain Psych Psychiatric: No depression, anxiety or hearing voices Resp Respiratory: No shortness of breath, Yes sleep apnea, Yes cough, No COPD, No asthma, No emphysema and No wheezing Gastro Gastrointestinal: No abdominal pain, No nausea or vomiting, No diarrhea, No constipation, No blood in stool, No acid reflux, No hemorrhoids, No ulcers, No gallbladder problem and No black,tarry stools Scar Hematologic: No blood thinners, No blood disorders, No bleeding, Yes anemia and No blood clots Neuro Neurologic: No system reviewed and no additional complaints, except as documented, No as per HPI, No abnormal gait, No abnormal hearing, No abnormal movements, No abnormal speech, No behavioral changes, No burning sensations, No confusion, No convulsions, No disequilibrium, No dizziness, (more content not included)... Normal [facility] Ext Non Vasc Limited/Soft Ti sson 01-29-2024 Ext Non Vasc Limited/Soft Tiss [facility] Imaging Services [address] [place], [place] [address] Ext Non Vasc Limited/Soft Tiss MR#: [id number] Acct: [id number] Name: DEANGELO BEACH Rep #: [id number] : 1940 F 84 From: Kavon Cornelius MD PCP: Dr. Ramiro Santana MD Status: REG CLI Study: Ext Non Vasc Limited/Soft Tiss Date of Exam: Exam# [id number] Ordering Dr: Sandoval Jones MD [id number] STUDY: SUPERFICIAL ULTRASOUND - RIGHT GROIN REASON FOR EXAM: Female, 84 years old. R GROIN ADENOPATHY TECHNIQUE: A superficial ultrasound was performed with real-time and static scott-scale imaging. COMPARISON: None. FINDINGS: Multiple longitudinal and transverse ultrasound images of the right inguinal area do not demonstrate a discrete solid or cystic mass or lymphadenopathy. Some normal-sized of the inguinal lymph nodes with normal morphology and echogenicity are noted. US/Ext Non Vasc Limited/Soft Tiss IMPRESSION: Normal right groin. Electronically Signed: Kavon Cornelius MD at 11:48 EDT , CC: Dr. Ramiro Santana MD; Dr. Sandoval Jones MD Supervisor [employer]: Signed Normal [facility] Oncology Visit Reporton 01-[address] [facility] [address] [place] [address]. [place] [address] OFFICE VISIT Date of Service: 01/28/24 1401 MR#: [id number] Acct: [id number] Name: DEANGELO BEACH Rep #: [id number] : 1940 From: Sandoval Jones MD Age/Sex: 84/F [place] [facility] [place]: Signed HPI Subjective Date of Service 01/28/24 Chief Complaint F/u for mediastinal adenopathy on CT History of Present Illness 84-year-old female with a past history notable for right kidney cancer status post nephrectomy in 2009 in [place] who presented to [facility] emergency room December 07, 2023 for with 1 month history of increasing cough. She has minimal clear sputum production no hemoptysis no chest pain or dyspnea. December 07, 2023 CTA: FINDINGS: CENTRAL AIRWAYS: Patent. LUNGS: Mild bilateral bronchial wall thickening. 6 mm noncalcified nodule in the left lower lobe adjacent to the diaphragm. PLEURA: No pneumothorax or significant pleural effusion. HEART/PERICARDIUM: Heart within normal limits in size with coronary artery disease. Trace pericardial fluid. PULMONARY ARTERIES: No filling defect. AORTA/VESSELS: No thoracic aortic aneurysm or dissection flap. Mild atherosclerosis. MEDIASTINUM/EDGAR: 2 x 3.2 cm heterogeneous and lobulated right paratracheal mass, obscured from streak artifact from the adjacent superior vena cava. Mild mass effect on the superior vena cava and right upper lobe pulmonary vessels. OSSEOUS STRUCTURES: Degenerative change. Chronic mild T3 and T9 compression fractures. UPPER ABDOMEN: Borderline dilated small bowel in the biological sciences professor image. IMPRESSION: 3 cm right paratracheal mass, concerning for malignancy or metastatic lymphadenopathy. 6 mm left lower lobe pulmonary nodule; recommend follow-up Mild bronchitis. No evidence of acute pulmonary embolism. She had PET/CT done, EBUS + biopsy of mediastinal node done. Comes for follow up. [facility] Medical History Wears glasses Post-menopausal Lymph node enlargement Anxiety Bladder disease Anemia High cholesterol Back pain Difficulty swallowing History of GI bleed History of ulceration History of IBS Non-smoker Shortness of breath on exertion Asthma History of pain when walking History of edema Chronic cough Hyperlipemia Hypertension Cancer of kidney Surgical History Hx of left cataract extraction Hx of right cataract extraction Hx of colonoscopy H/O: hysterectomy H/O right nephrectomy Family History Other No pertinent family history Social History Smoking Status: Never smoker alcohol intake: never Intake Vital Signs 01/24/24 08:38 01/28/24 14:02 01/28/24 14:08 Height 5 ft 6 in 5 ft 6 in 5 ft 6 in Weight: 68.946 kg 70.845 kg BMI 24.5 25.2 BP 133/73 H 131/79 H Blood Pressure Location Lt brachial Lt brachial Position Sitting Sitting Respiration 18 16 Pulse 100 112 H Pulse Source Monitor Monitor Temp 98.2 F 98.3 F Temperature Source Temporal Artery Temporal Artery Pulse Oximetry (%) 97 95 Oxygen Delivery Method room air room air Intake Is patient in pain?: No Allergies Latex, Natural Rubber Allergy (Intermediate, Verified 01/28/24 14:08) Rash tizanidine Allergy (Verified 01/28/24 14:08) Rash Medications ???Medication ???Instructions ???Recorded ???Confirmed ???Type metoprolol succinate 25 mg 25 mg PO DAILY 12/27/22 01/28/24 History tablet,extended release 24 hr montelukast 10 mg tablet 10 mg PO QHS 12/27/22 01/28/24 History pravastatin 40 mg tablet 40 mg PO QHS 12/27/22 01/28/24 History diclofenac sodium 1 % topical gel 2 ea topical 4X/DAY PRN pain 07/31/23 01/28/24 History (scale score 4-6) hydrocortisone 2.5 % topical cream 1 applic topical BID PRN rash 7 12/07/23 01/28/24 Rx days #30 grams Have you fallen in the past year?: No Central Venous Access Central Venous Access: No 01/21/2024 PET/CT reviewed. PET/PET/CT Tumor Base -Thigh Init IMPRESSION: 1. The increase in radiopharmaceutical concentration defined in the right inguinal region may necessitate histopathologic analysis secondary to the quantitative degree of uptake. 2. Facilitated FDG concentration noted in the precarinal mediastinum to the right of the midline does not fulfill quantitative criteria for malignant transformation. (Alirio ch al, Journal of Clinical Oncology 16:2142, 1998). Electronic Signature Kavon Valderrama D.O. 01/10/2024 EBUS/TBNA Cytology reviewed. DIAGNOSIS CYTOLOGY A. EBUS, TBNA, site 4R #1 (smears): - Category: Atypical. - Scant atypical cells. B. EBUS, TBNA, site 4R #2 (smears): (more content not included)... Normal [facility] Pulmonary Visit Reporton Pulmonary Visit Report [facility] [address] [place] [address] OFFICE VISIT Date of Service: 01/24/24 MR#: [id number] Acct: [id number] Name: DEANGELO BEACH Rep #: [id number] : 1940 Provider: MELANY Andrews Age/Sex: 83/F Location: [facility] Status: Signed Assessment and Plan Assessment and Plan (1) Lung mass: Status: Chronic Plan: Tissue pathology from the lung biopsy is consistent with non-small cell carcinoma. However, PET scan showed area of concern in the right groin. Defer further testing to oncology. The patient is asymptomatic from a respiratory standpoint and can follow-up as needed. Annual influenza vaccination provided in the office today. I did reach out to oncology to make sure that the patient gets a follow-up appointment scheduled. All questions were answered in the office today. This case was discussed with Dr. Escobar. Orders: Orders Influenza Immunization Today J44.9 - Chronic obstructive pulmonary disease, unspecified, R91.8 - Other nonspecific abnormal finding of lung field HPI Test Result Chief Complaint: test results HPI Comments Details: This patient presents to the office today to discuss test results. She is ambulatory and currently on room air. She is accompanied today by her brother. She has not recently been seen in the ED or urgent care for any respiratory illness. She has not required any antibiotics or prednisone for any breathing problems. She is not currently on any inhalers. She reports that the bad cough has completely resolved. She denies any difficulty with shortness of breath. She denies any sputum production or hemoptysis. She has not had any wheezing, chest tightness, chest pain or palpitations. She also denies any fever, chills or body aches. Test results personally reviewed the patient: PET/CT scan completed on January 21, 2024. Impression: The increase in radiopharmaceutical concentration defined in the right inguinal region may necessitate histopathologic analysis secondary to the quantitative degree of uptake. There is also concentration noted in the precarinal mediastinum to the right of the middle lobe, does not fulfill quantitative criteria for malignant transformation. Tissue pathology from January 10, 2024 endobronchial ultrasound-guided biopsy is consistent with atypical cells, suspicious for non-small cell carcinoma. Intake Vital Signs 01/10/24 11:13 01/24/24 08:38 Height 5 ft 6 in 5 ft 6 in Weight: 152 lb BMI 24.5 BP 133/73 H Blood Pressure Location Lt brachial Position Sitting Respiration 18 Pulse 100 Pulse Source Monitor Temp 98.2 F Temperature Source Temporal Artery Pulse Oximetry (%) 97 Oxygen Delivery Method room air Intake Visit Reasons: Test Result Chief Complaint: Chest mass on CT Electrophysiology Scientist Required: No Accompanied by: Brother Is patient in pain?: No Allergies Latex, Natural Rubber Allergy (Intermediate, Verified 01/24/24 09:50) Rash tizanidine Allergy (Verified 01/24/24 09:50) Rash Medications ???Medication ???Instructions ???Recorded ???Confirmed ???Type metoprolol succinate 25 mg 25 mg PO DAILY 12/27/22 01/24/24 History tablet,extended release 24 hr montelukast 10 mg tablet 10 mg PO QHS 12/27/22 01/24/24 History pravastatin 40 mg tablet 40 mg PO QHS 12/27/22 01/24/24 History diclofenac sodium 1 % topical gel 2 ea topical 4X/DAY PRN pain 07/31/23 01/24/24 History (scale score 4-6) hydrocortisone 2.5 % topical cream 1 applic topical BID PRN rash 7 12/07/23 01/24/24 Rx days #30 grams Have you fallen in the past year?: No PFSH Medical History Wears glasses Post-menopausal Lymph node enlargement Anxiety Bladder disease Anemia High cholesterol Back pain Difficulty swallowing History of GI bleed History of ulceration History of IBS Non-smoker Shortness of breath on exertion Asthma History of pain when walking History of edema Chronic cough Hyperlipemia Hypertension Cancer of kidney Surgical History Hx of left cataract extraction Hx of right cataract extraction Hx of colonoscopy H/O: hysterectomy H/O right nephrectomy Family History Other No pertinent family history Social History Smoking Status: Never smoker alcohol intake: never Exam Const Constitutional: Positive conversant, cooperative, in no acute respiratory distress, well developed, well nourished and good hygiene Head Head: Yes normocephalic, Yes atraumatic and No cyanosis of lips/distal nose Eyes Eye: Positi (more content not included)... Normal [facility] PET/CT Tumor Base -Thigh Ini ton 01-21-2024 PET/CT Tumor Base -Thigh Init [facility] Imaging Services [address] [place] [address] PET/CT Tumor Base -Thigh Init MR#: [id number] Acct: [id number] Name: YONGDEANGELO E Rep #: [id number] : 1940 F 83 From: Kavon Moralez PCP: Dr. Ramiro Santana MD Status: REG CLI Study: PET/CT Tumor Base -Thigh Init Date of Exam: Exam# [id number] Ordering Dr: Johnnie Escobar DO [id number] EXAMINATION: FDG PET-CT INDICATIONS: An 83-year-old female with history of mediastinal mass formation presenting for initial evaluation. COMPARISON EXAMINATION: CTA of the chest report dated 12/07/23 INDEX LESION SIZE SUV INTERPRETATION Right inguinal region 9.7-mm 4.2 May necessitate histopathologic investigation Right precarinal mediastinum 2.3 Quantitative criteria for viable neoplasm are not fulfilled TECHNIQUE: Following the intravenous administration of 14.5 mCi of F-18 deoxyglucose via the right hand, multiplanar image acquisitions of the neck, chest, abdomen and pelvis to level of mid thigh, obtained at one hour post radiopharmaceutical administration contemporaneously interpreted with the current CT of the neck, chest, abdomen and pelvis, to level of mid thigh, dated 01/21/24 via coregistration and CTA of the chest report dated 12/07/23 reveals: BLOOD GLUCOSE LEVEL:?? 85 mg/dl?HEIGHT:?6 6 inches?WEIGHT: 155 lbs. FINDINGS: HEAD/NECK: There is no evidence of abnormal increased glucose metabolism in the pharyngeal mucosal space, parapharyngeal space, bilateral-lateral and anterior neck, hypopharynx and distribution of the laryngeal structures. The visualized portion of the cerebral cortical-subcortical structures demonstrate symmetric and preserved glucose metabolism. Prominent tracer concentration is noted in the anterior aspect of the oral cavity in proximity to dental hardware placement most consistent with a component of metallic reconstruction artifact. CHEST: Enhanced tracer concentration is defined in the right upper paratracheal lymph node distribution generating a calculated maximal standard uptake value of 2.3. Pertinent chest CT findings are as follows. There is atherosclerotic calcification defined in the thoracic aorta without evidence of dilatation-aneurysm formation. Coronary arterial calcification is observed. Mediastinal and bilateral axillary soft tissue densities are non-glucose avid. There are no parenchymal densities-nodules defined in the right and left hemithorax with quantitatively significant increased FDG uptake. ABDOMEN/PELVIS: Facilitated uptake is noted in the right inguinal region in a single nodular presentation. The calculated maximal standard uptake value is 4.2. The maximal axial diameter of the corresponding soft tissue density is 9.7-mm. Normal physiologic distribution of the radiopharmaceutical is apparent in the hepatic (3.9) and splenic parenchyma, left renal unit, bladder and visualized intestinal tract. Pertinent abdomen and pelvis CT findings are as follows. 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 Colonic diverticula are defined without evidence of diverticulitis. Bilateral adnexal cyst formation is demonstrated. Cholelithiasis is demonstrated. There is atherosclerotic calcification defined in the abdominal aorta without evidence of dilatation-aneurysm formation. Pelvic arterial calcification is observed. SKELETAL: Degenerative changes are noted in the cervical, thoracic and lumbar spine without evidence of increased radiopharmaceutical concentration. PET/PET/CT Tumor Base -Thigh Init IMPRESSION: 1. The increase in radiopharmaceutical concentration defined in the right inguinal region may necessitate histopathologic analysis secondary to the quantitative degree of uptake. 2. Facilitated FDG concentration noted in the precarinal mediastinum to the right of the midline does not fulfill quantitative criteria for malignant transformation. (DavinSteenreji et al, Journal of Clinical Oncology 16:2142, 1998). Electronic Signature Kavon Valderrama D.O. Accurate Quantification of SUVs for this report are calculated using the exclusive [employer], (U.S. Patent No. [id number] [id number] [phone] patent [id number] [phone] [id number] ). Standardization and correction of the FDG SUV metric exclusively available with [employer] intellectual property, allow for vendor non-specific objective quantitative sequential FDG PET-CT comparison and otherwise unobtainable optimization of the sensitivity and specificity of the examination. [email or web address] Electronically Signed: Kavon Valderrama DO at 22:37 EDT , (more content not included)... Normal [facility] Bronchoscopy Reporton 2023 Bronchoscopy Report [facility] Medical Records Department [address] [place] [address] Bronchoscopy Report MR#: [id number] Acct: [id number] Name: DEANGELO BEACH Rep #: [id number] : 1940 83 From: Johnnie Escobar DO PCP: Dr. Ramiro Santana MD Status:REG [facility] Patient Name: Deangelo Beach Procedure Date: 01/10/2024 11:34 AM Date of : 1940 Age: 83 Procedure: Bronchoscopy Indications: Abnormal CT scan of chest Providers: Johnnie Escobar MD Medicines: General Anesthesia Complications: No immediate complications Procedure: Pre-Anesthesia Assessment: - A History and Physical has been performed. Patient meds and allergies have been reviewed. The risks and benefits of the procedure and the sedation options and risks were discussed with the patient. All questions were answered and informed consent was obtained. Patient identification and proposed procedure were verified prior to the procedure by the physician and the nurse in the procedure room. Mental Status Examination: alert and oriented. Airway Examination: normal oropharyngeal airway. Respiratory Examination: clear to auscultation. CV Examination: normal. ASA Grade Assessment: II - A patient with mild systemic disease. After reviewing the risks and benefits, the patient was deemed in satisfactory condition to undergo the procedure. The anesthesia plan was to use general anesthesia. Immediately prior to administration of medications, the patient was re-assessed for adequacy to receive sedatives. The heart rate, respiratory rate, oxygen saturations, blood pressure, adequacy of pulmonary ventilation, and response to care were monitored throughout the procedure. The physical status of the patient was re-assessed after the procedure. After I obtained informed consent, the scope was passed under direct vision. Throughout the procedure, the patient's blood pressure, pulse, and oxygen saturations were monitored continuously. The ultrasound bronchoscope was introduced through the mouth, via laryngeal mask airway and advanced to the tracheobronchial tree. The bronchoscope was introduced through the mouth, via laryngeal mask airway and advanced to the tracheobronchial tree. The procedure was accomplished without difficulty. The patient tolerated the procedure well. Findings: The laryngeal mask airway is in good position. The vocal cords appear normal. The subglottic space is normal. The trachea is of normal caliber. The lucrecia is sharp. The tracheobronchial tree was examined to at least the first subsegmental level. Bronchial mucosa and anatomy are normal; there are no endobronchial lesions, and no secretions. The scope was withdrawn and replaced with the EBUS bronchoscope to accomplish the ultrasound examination. Lymph Nodes: An endobronchial ultrasound endoscope was utilized to systematically examine the right lower paratracheal region (level 4R) in order to assist with guiding the biopsy needle. Lymph node sizing was performed via endobronchial ultrasound. Sampling by transbronchial needle aspiration was also performed using a 19ga Olympus needle. Sampling was performed from the distal right paratracheal lymph node station. - The distal right paratracheal (4R) node was biopsied. Five samples with the needle was obtained. Impression: - Abnormal CT scan of chest - The airway examination was normal. - Endobronchial ultrasound was performed. - Lymph node sampling was performed. Recommendation: - Await biopsy results. DO Johnnie Medina MD 01/10/2024 1:00:00 PM This report has been signed electronically. Number of Addenda: 1 Note Initiated On: 01/10/2024 11:34 AM Addendum Number: 1 Addendum Date: 01/10/2024 1:18:43 PM CPT 33524 DO Johnnie Medina MD 01/10/2024 1:20:11 PM This report has been signed electronically. 01/10/24 1320 Date Johnnie Escobar DO Cosigner Signature: Date (if indicated) CC: Dr. Johnnie Escobar DO; Dr. Ramiro Santana MD Date Dictated: 01/10/24 1134 Date Transcribed: Supervisor Acoustical Tile Carpenters: DIANA Signed [facility] MR/POSTOP.Ami 01-10-2024 MR/POSTOP.[facility] Medical Records Department [address] [place] [address] Anesthesia Postop Eval I 01/10/24 1250 MR#: [id number] Acct: [id number] Name: DEANGELO BEACH Rep #: [id number] : 1940 83 From: Eloy Capone MD PCP: Dr. Ramiro Santana MD Status:REG [facility] Y Race: C Location: [place] [address] Anesthesia: Postop Eval I Current Vital Signs Temperature: 97.1 F Pulse Rate: 89 Blood Pressure: 122/60 Respiratory Rate: 16 Pulse Ox: 93 Oxygen Delivery Method: Room Air Assessment Airway patent: Yes Spontaneous unlabored respirations: Yes Mental status: Asleep (Arousable) nausea: No Vomiting: No Anesthesia Complication: No Fluid Hydration Crystalloid volume administer (ml): 800 Total IV fluid infused: 800 Progress Note Anesthesia document: Postop Eval 1 completed: Yes 01/10/24 1253 Date Eloy Capone MD Cosigner Signature: Date CC: Signed [facility] [id number] 01-10-[address] Medical Records Department [address] [place] [address] Anesthesia Postop Eval II 01/10/24 1357 MR#: [id number] Acct: [id number] Name: DEANGELO BEACH Rep #: [id number] : 1940 83 From: Eloy Capone MD PCP: Dr. Ramiro Santana MD Status:REG [facility] Y Race: C Location: [place] [address] Anesthesia Postop Eval I Sum Postop Eval Completion status Anesthesia document: Postop Eval 1 completed: Yes Anesthesia Postop Eval I Summary Anesthesia Postop Eval I Summary: Anesthesia Postop Eval I: Assessment Summary Airway patent Yes 01/10/24 12:53 Spontaneous unlabored Yes 01/10/24 12:53 respirations Mental status Asleep - Arousable 01/10/24 12:53 nausea No 01/10/24 12:53 Vomiting No 01/10/24 12:53 Anesthesia Postop Eval I: Fluid Summary Crystalloid volume administer 800 01/10/24 12:53 (ml) Colloids volume administered ( ml) Blood Product volume administered (ml) Total IV fluid infused 800 01/10/24 12:53 Anesthesia Postop Eval I: Summary Notes Anesthesia Complication No 01/10/24 12:53 Anesthesia Complication Comment: Post-operative progress note Anesthesia: Postop Eval II Evaluation Mental status: Awake Pain Level: 2 nausea: No Vomiting: No Progress Note Post-operative progress note: Patient has significant crackles or rales. Will give her another DuoNeb breathing treatment. Complications Anesthesia Complication: No 01/10/24 1358 Date Eloy Lynn Signature: Date CC: Signed Normal [facility] Special Stain Group IIon Special Stain Group II -------- Patient Age/Sex Location Account Attending Physician DEANGELO BEACH 83/F EN [id number] Dr. Johnnie Escobar, Specimen: [id number] Received: 01/10/24 Status: ANÍBAL Fan Num: [id number] Spec Type: ASP OUT Subm Dr: Dr. Johnnie Escobar DO THIS IS A CORRECTED REPORT 01/20/24 HEADER OPERATION: EBUS with TBNA PRE-OP DIAGNOSIS: Endobronchial ultrasound TISSUE SUBMITTED: A-F- 4R EBUS DIAGNOSIS CYTOLOGY A. EBUS, TBNA, site 4R #1 (smears): - Category: Atypical. - Scant atypical cells. B. EBUS, TBNA, site 4R #2 (smears): - Category: Suspicious for malignancy. - Atypical cells, suspicious for non-small cell carcinoma. See note. NOTE: The smears show tissue fragments of epithelial cells with large, moderately pleomorphic nuclei with prominent single round nucleoi and vacuolated cytoplasm. The nuclei are crowded and overlapped. These epithelial cells lack cilia. The features are suspicious for non-small cell carcinoma. Clinical and radiographic correlation is recommended. C. EBUS, TBNA, site 4R #3 (smears): - Category: Benign - Rare respiratory epithelial cells and lymphocytes. D. EBUS, TBNA, site 4R #4 (smears): - Category: Benign - Rare respiratory epithelial cells and lymphocytes. E. EBUS, TBNA, site 4R #5 (smears): - Category: Benign - Rare respiratory epithelial cells and lymphocytes. F. EBUS, TBNA, site 4R fluid (cytospin and cellblock): - Category: Benign - Rare respiratory epithelial cells and lymphocytes. /mr 01/13/2024 COMMENT The specimen is evaluated at the time of biopsy by Dr. Villanueva. Immediate Evaluation = Rapid onsite evaluation: A: Negative for malignant cells. A few lymphocytes are noted. Respiratory epithelial cells are noted. B: Negative for malignant cells. Predominantly respiratory epithelial cells noted. C: Negative for malignant cells. Predominantly respiratory epithelial cells noted. D: Bloody specimen. Negative for malignant cells. Rare epithelial cells. E: Negative for malignant cells. Lymphocytes are noted. Rare respiratory epithelial cells. Patient Age/Sex Location Account Attending Physician DEANGELO BEACH 83/F EN [id number] Dr. Johnnie Escobar, CONSULTATION REPORT FROM [facility]: INTERPRETATION: The specimen is sent to [facility] for expert opinion, reviewed by Dr. Hernandez and the above diagnosis is rendered. The complete report is viewable in the patient's EMR As per EMR, the patient has history of right kidney cancer, s/p nephrectomy. Clinical correlation and appropriate follow up are necessary. Case has been reviewed in consultation with Dr. Headley who concurs with the above diagnosis. IDC:AM CYTOLOGY STUDY Slides are reviewed. F. The specimen consists of macrophages, lymphocytes, cartilage, and respiratory epithelial cells. CYTOLOGY GROSS A. Received labeled with the patient's name and and designated EBUS, TBNA, site 4R #1. The specimen consists of two stained smears for TRAVIS. B. Received labeled with the patient's name and and designated EBUS, TBNA, site 4R #2. The specimen consists of two stained smears for TRAVIS. C. Received labeled with the patient's name and and designated EBUS, TBNA, site 4R #3. The specimen consists of two stained smears for TRAVIS. D. Received labeled with the patient's name and and designated EBUS, TBNA, site 4R #4. The specimen consists of two stained smears for TRAVIS. E. Received labeled with the patient's name and and designated EBUS, TBNA, site 4R #5. The specimen consists of two stained smears for TRAVIS. F. Received in RPMI is 20 ml of pink, needle rinsed fluid labeled with the patient's name and and designated EBUS, TBNA, site 4R. The specimen is submitted for cytology study including cell block preparation. 01/10/2024 TC:5 CPT:68278,15444,[id number] [id number] Signed (signature on file) Dr. Satya Villanueva MD 01/21/24 1016 Normal [facility] Comment on above: Performed By: #### P SSII ####[facility] [address] [place], [address] PLATELET COUNTon 01-08-2024 Platelets (Bld) [#/Vol] 242 10*3/uL Normal 150-450 [facility] Comment on above: Performed By: #### L 300.4310, L300.3900, L100.0625 #### [facility] [address] [place], [address] Partial Thromboplast Timeon 01-08-2024 aPTT Coag (Bld) [Time] 30.2 s Normal 24.1-36.2 [facility] Comment on above: Performed By: #### L 300.4310, L300.3900, L100.0625 ####[facility] [address] [place], [address] Prothrombin Time w/INRon INR Coag (PPP) [Relative time] 1.0 {INR} Normal [facility] Comment on above: Performed By: #### L 300.4310, L300.3900, L100.0625 ####[facility] [address] [place], [address] PT Coag (PPP) [Time] 13.1 s Normal 11.7-14.9 [facility] Comment on above: Performed By: #### L 300.4310, L300.3900, L100.0625 ####[facility] [address] [place], [address] Pulmonary Visit Reporton Pulmonary Visit Report [facility] [address] [place] [address] OFFICE VISIT Date of Service: 12/26/23 MR#: [id number] Acct: [id number] Name: DEANGELO BEACH Rep #: [id number] : 1940 Provider: Dr. Johnnie Escobar DO Age/Sex: 83/F [place] [facility] Status: Signed Assessment and Plan Assessment and Plan (1) Lung mass: Status: Chronic Plan: The patient presented today for the evaluation of a distal right paratracheal lung mass noted on recent CTA chest, measuring approximately 2 x 3 cm in size. The lesion itself is adjacent to the superior vena cava. Prior to proceeding with referral to thoracic surgery, I did discuss the feasibility of proceeding with EBUS in order to facilitate sampling of the aforementioned lesion. Risks and benefits of the proposed procedure were discussed with the patient. She is agreeable to proceed. If the lesion is unable to be accessed bronchoscopically, she will require outpatient referral to thoracic surgery. Orders: Orders PLATELET COUNT 12/26/23 Prothrombin Time w/INR 12/26/23 R91.8 - Other nonspecific abnormal finding of lung field Partial Thromboplast Time 12/26/23 R91.8 - Other nonspecific abnormal finding of lung field HPI HPI Comments Details: The patient is an 83-year-old female who presents to the office today in referral for the evaluation of a paratracheal mass. The patient has a medical history significant for right kidney cancer status post nephrectomy in 2009 in [place]. She was recently evaluated in the emergency department in November 2023 secondary to a history of nonproductive cough. A CTA chest was completed during that evaluation and demonstrated a 2 x 3 cm right paratracheal mass adjacent to the superior vena cava. The patient was subsequently referred to Dr. Montero of oncology, who evaluated the patient on December 11. He then referred the patient to our office to be considered for possible EBUS. The patient is a lifelong non-smoker. She does confirm the ongoing presence of a nonproductive cough, which has been present now for greater than 1 month. She does report associated wheezing. Her weight and appetite, however, have been stable. She denies any fevers, chills or night sweats. She is not currently on any form of blood thinners. She denies any overt exertional dyspnea. Intake Vital Signs 12/12/23 13:06 12/26/23 06:14 Height 5 ft 6 in 5 ft 6 in Weight: 155 lb BMI 25.0 BP 133/74 H Blood Pressure Location Rt brachial Position Sitting Pulse 114 H Pulse Source Monitor Temp 97.4 F L Temperature Source Temporal Artery Pulse Oximetry (%) 96 Oxygen Delivery Method room air Intake Visit Reasons: Discuss Ebus Chief Complaint: Chest mass on CT Electrophysiology Scientist Required: No Accompanied by: Brother Allergies Latex, Natural Rubber Allergy (Intermediate, Verified 12/26/23 10:32) Rash tizanidine Allergy (Verified 12/26/23 10:34) Rash Medications ???Medication ???Instructions ???Recorded ???Confirmed ???Type metoprolol succinate 25 mg 25 mg PO DAILY 12/27/22 12/26/23 History tablet,extended release 24 hr montelukast 10 mg tablet 10 mg PO QHS 12/27/22 12/26/23 History pravastatin 40 mg tablet 40 mg PO DAILY 12/27/22 12/26/23 History diclofenac sodium 1 % topical gel 2 ea topical 4X/DAY 07/31/23 12/26/23 History hydrocortisone 2.5 % topical cream 1 applic topical BID PRN rash 7 12/07/23 12/26/23 Rx days #30 grams Have you fallen in the past year?: No PFSH Medical History Hyperlipemia Hypertension Cancer of kidney Surgical History H/O: hysterectomy H/O right nephrectomy Family History Other No pertinent family history Social History Smoking Status: Never smoker alcohol intake: never Review of Systems Resp Respiratory: Yes as per HPI Exam Const Constitutional: Positive conversant, cooperative, in no acute respiratory distress, well developed, well nourished and good hygiene Head Head: Yes normocephalic and Yes atraumatic Eyes Eye: Positive clear conjunctiva; Negative nystagmus or scleral abnormality Ears Ear: Positive hearing normal and external ears normal Nose Nose: Yes external nose normal Mouth Mouth: Positive oral mucosae normal and posterior oropharynx is adequate; Negative no lesions Neck Neck: Positive normal visual inspection and trachea midline; Negative lymphadenopathy Chest Wall Chest: Positive symmetric chest movement Normal AP diameter. Resp lung sounds: Positive good air exchange and wheezes; Negative rhonchi or rales Cardio (more content not included)... Normal [facility] Oncology Visit Reporton 11-14 Oncology Visit Report [facility] [place] [address] OFFICE VISIT Date of Service: 12/12/23 1259 MR#: [id number] Acct: [id number] Name: DEANGELO BEACH Rep #: [id number] : 1940 From: Lissy Montero MD Age/Sex: 83/F [place] [facility] Status: Signed HPI Subjective Date of Service 12/12/23 Chief Complaint Chest mass on CT History of Present Illness 83-year-old female with a past history notable for right kidney cancer status post nephrectomy in 2009 in [place] who presented to [facility] emergency room December 07, 2023 for with 1 month history of increasing cough. She has minimal clear sputum production no hemoptysis no chest pain or dyspnea. December 07, 2023 CTA: FINDINGS: CENTRAL AIRWAYS: Patent. LUNGS: Mild bilateral bronchial wall thickening. 6 mm noncalcified nodule in the left lower lobe adjacent to the diaphragm. PLEURA: No pneumothorax or significant pleural effusion. HEART/PERICARDIUM: Heart within normal limits in size with coronary artery disease. Trace pericardial fluid. PULMONARY ARTERIES: No filling defect. AORTA/VESSELS: No thoracic aortic aneurysm or dissection flap. Mild atherosclerosis. MEDIASTINUM/EDGAR: 2 x 3.2 cm heterogeneous and lobulated right paratracheal mass, obscured from streak artifact from the adjacent superior vena cava. Mild mass effect on the superior vena cava and right upper lobe pulmonary vessels. OSSEOUS STRUCTURES: Degenerative change. Chronic mild T3 and T9 compression fractures. UPPER ABDOMEN: Borderline dilated small bowel in the biological sciences professor image. IMPRESSION: 3 cm right paratracheal mass, concerning for malignancy or metastatic lymphadenopathy. 6 mm left lower lobe pulmonary nodule; recommend follow-up Mild bronchitis. No evidence of acute pulmonary embolism. [facility] Medical History (Updated 12/12/23 @ 13:[address] Lissy Montero MD) Hyperlipemia Hypertension Cancer of kidney Surgical History H/O: hysterectomy H/O right nephrectomy Family History Other No pertinent family history Social History Smoking Status: Never smoker alcohol intake: never ROS Constitutional Constitutional: Reports systems reviewed and no addt'l complaints, except as documented, anorexia and weight loss; Denies fever(s) Eyes Eyes: Reports systems reviewed and no addt'l complaints, except as documented ENT HEENT: Reports systems reviewed and no addt'l complaints, except as documented; Denies mouth lesions Cardiovascular Cardiovascular: Reports systems reviewed and no addt'l complaints, except as documented and edema; Denies chest pain Respiratory/Chest Respiratory/Chest: Reports systems reviewed and no addt'l complaints, except as documented and cough; Denies dyspnea or hemoptysis Gastrointestinal Gastrointestinal: Reports systems reviewed and no addt'l complaints, except as documented; Denies change in bowel habits, hematochezia or melena Genitourinary Genitourinary: Reports systems reviewed and no addt'l complaints, except as documented, urinary incontinence and other Details: Stress incontinence with bouts of cough ; Denies hematuria Musculoskeletal Musculoskeletal: Reports back pain and other Details: Chronic back pain, decades Integumentary Integumentary: Reports rash and other Details: She had a rash over the upper front chest that recently resolved after a topical cream Neurologic Neurologic: Reports systems reviewed and no addt'l complaints, except as documented; Denies focal weakness, headache(s) or paresthesias Psychiatric Psychiatric: Reports systems reviewed and no addt'l complaints, except as documented Endocrine Endocrinology: Reports systems reviewed and no addt'l complaints, except as documented Hematologic/Lymphatic Hematologic/Lymphatic: Reports systems reviewed and no addt'l complaints, except as documented; Denies lymphadenopathy Allergic/Immunologic Allergic/Immunologic: Reports systems reviewed and no addt'l complaints, except as documented Intake Vital Signs 12/07/23 12:55 12/12/23 13:01 12/12/23 13:06 Height 5 ft 6 in 5 ft 6 in 5 ft 6 in Weight: 72.178 kg BMI 25.7 BP 123/80 H Blood Pressure Location Lt brachial Position Sitting Respiration 16 Pulse 107 H Pulse Source Monitor Temp 98.5 F Temperature Source Temporal Artery Pulse Oximetry (%) 94 Oxygen Delivery Method room air Intake Is patient in pain?: Yes (pain with coughing ) Allergies Latex, Natural Rubber Allergy (Intermediate, Verified 12/12/23 13:03) Rash Medications ???Medication ???Instructions ???Recorded ???Confirmed ???Type metoprolol succinate 25 mg 25 mg PO DAILY 12/27/22 08 (more content not included)... Normal [facility] Venous Duplex US - Anthony Extre [facility] 12-09-2023 Venous Duplex US - Anthony Extrem [facility] [address] [place] [address] Venous Duplex US - Anthony Extrem 12/09/23 1342 MR#: [id number] Acct: [id number] Name: DEANGELO BEACH Rep #: [id number] : 1940 83 From: Nigel Tilley MD Attending Dr: Dr. Jose Parmar MD Status: REG CLI Ordering Dr: Jose Parmar MD Date: 12/09/23 Location: [facility] Sex: F C Admitted: Reason For Study: Elevated D-Dimer RIGHT LEFT GSV is normal. GSV is normal. CFV is compressible, spontaneous, phasic, CFV is compressible, spontaneous, phasic, competent and demonstrates normal competent, and demonstrates normal augmentation. augmentation. FV is compressible, spontaneous, phasic, FV is compressible, spontaneous, phasic, competent and demonstrates normal competent and demonstrates normal augmentation. augmentation. POP V is compressible, spontaneous, phasic, POP V is compressible, spontaneous, phasic, competent and demonstrates normal competent and demonstrates normal augmentation. augmentation. T/P Trunk is compressible. T/P Trunk is compressible. PTV is compressible. PTV is compressible. RT PerV is compressible. LT PerV is compressible. Procedure This is a venous duplex using B-mode, color flow and spectral Doppler. Exam performed in department. A preliminary report was called and/or faxed to ED, Dr. Santana. VL/Venous Duplex US - Anthony Extrem Interpretation Summary Deep veins of the bilateral lower extremities are patent and compressible segmentally. There is no evidence of bilateral lower extremity deep vein thrombosis. The bilateral great saphenous veins appear patent and compressible segmentally. ___ Ordering Physician: Jose Parmar Referring Physician: Ramiro Santana Performed By: Sofía Lawson, RANDELL, RVT 12/09/23 1830 Date Nigel Tilley MD CC: Dr. Jose Parmar MD; Dr. Ramiro Santana MD Date Dictated: 12/09/23 1342 Date Transcribed: 12/09/231829 Supervisor Acoustical Tile Carpenters: Signed Normal [facility] 12 Lead EKGon 12-07-2023 12 Lead EKG [facility] [address] [place] [address] 12 Lead EKG 12/07/23 1317 MR#: [id number] Acct: [id number] Name: DEANGELO BEACH Rep #: [id number] : 1940 83 From: Fang Bah MD Attending Dr: Status: DEP ER Ordering Dr: Jose Parmar MD Date: 12/07/23 Location: ED Sex: F C Admitted: Test Reason : TACHY Blood Pressure : / mmHG Vent. Rate : 109 BPM Atrial Rate : 109 BPM P-R Int : 162 ms QRS Dur : 076 ms QT Int : 326 ms P-R-T Axes : 063 042 076 degrees QTc Int : 439 ms Sinus tachycardia Otherwise normal ECG Confirmed by Fang Bah ([id number]), editor dictionary SILVIA BARAKAT ([id number]) on 12/09/2023 10:30:09 AM Referred By: Confirmed By:Fang Bah 12/09/23 1030 Date Fang Bah MD CC: Dr. Jose Parmar MD; SUBHASH YOSEF Signed Normal [facility] BNP,B-Type NATRIURETIC PEPTI Juanita 12-07-2023 Natriuretic peptide B (Bld) [Mass/Vol] 17.2 pg/mL Normal 0-100 [facility] Comment on above: Performed By: #### L 500.4050, L100.0100, L503.6620, L501.4020, L300.8000 ####[facility] [address] [place], [address] CBC W/Diff, Automatedon 11-14 Absolute Lymph 1.86 X10 3/uL Normal 0.83-4.51 [facility] Comment on above: Performed By: #### L 500.4050, L100.0100, L503.6620, L501.4020, L300.8000 ####[facility] [address] [place], [address] Absolute Neut 5.6 X10 3/uL Normal 2.0-7.7 [facility] Comment on above: Performed By: #### L 500.4050, L100.0100, L503.6620, L501.4020, L300.8000 ####[facility] [address] [place], [address] Basophils/100 WBC (Bld) 0.3 % Normal 0-1 [facility] Comment on above: Performed By: #### L 500.4050, L100.0100, L503.6620, L501.4020, L300.8000 ####[facility] [address] [place], [address] Eosinophils/100 WBC (Bld) 8.5 % High 0-5 [facility] Comment on above: Performed By: #### L 500.4050, L100.0100, L503.6620, L501.4020, L300.8000 ####[facility] [address] [place], [address] Erythrocyte distribution width (RBC) [Ratio] 12.7 % Normal 11.6-14.6 [facility] Comment on above: Performed By: #### L 500.4050, L100.0100, L503.6620, L501.4020, L300.8000 ####[facility] [address] [place], [address] Hematocrit (Bld) [Volume fraction] 46.1 % Normal 37-47 [facility] Comment on above: Performed By: #### L 500.4050, L100.0100, L503.6620, L501.4020, L300.8000 ####[facility] [address] [place], [address] Hemoglobin (Bld) [Mass/Vol] 15.5 g/dL High 12.0-15.0 [facility] Comment on above: Performed By: #### L 500.4050, L100.0100, L503.6620, L501.4020, L300.8000 ####[facility] [address] [place], [address] IG% 0.100 Normal 0.0-0.9 [facility] Comment on above: Result Comment: IG% - Immature Granulocytes (promyelocytes, myelocytes and metamyelocytes) > 1% indicates that a LEFT SHIFT is Present. Performed By: #### L 500.4050, L100.0100, L503.6620, L501.4020, L300.8000 ####[facility] [address] [place], [address] Lymphocytes/100 WBC (Bld) 20.6 % Normal 19-41 [facility] Comment on above: Performed By: #### L 500.4050, L100.0100, L503.6620, L501.4020, L300.8000 ####[facility] [address] [place], [address] MCH (RBC) [Entitic mass] 30.6 pg Normal 27.0-32.0 [facility] Comment on above: Performed By: #### L 500.4050, L100.0100, L503.6620, L501.4020, L300.8000 ####[facility] [address] [place], [address] MCHC (RBC) [Mass/Vol] 33.6 g/dL Normal 32-36 [facility] Comment on above: Performed By: #### L 500.4050, L100.0100, L503.6620, L501.4020, L300.8000 ####[facility] [address] [place], [address] MCV (RBC) [Entitic vol] 90.9 fL Normal 81-99 [facility] Comment on above: Performed By: #### L 500.4050, L100.0100, L503.6620, L501.4020, L300.8000 ####[facility] [address] [place], [address] Monocytes/100 WBC (Bld) 8.2 % Normal 0-10 [facility] Comment on above: Performed By: #### L 500.4050, L100.0100, L503.6620, L501.4020, L300.8000 ####[facility] [address] [place], [address] Neutrophils/100 WBC (Bld) 62.3 % Normal 47-70 [facility] Comment on above: Performed By: #### L 500.4050, L100.0100, L503.6620, L501.4020, L300.8000 ####[facility] [address] [place], [address] Nucleated RBC (Bld) [#/Vol] 0 10*3/uL Normal 0-5 [facility] Comment on above: Performed By: #### L 500.4050, L100.0100, L503.6620, L501.4020, L300.8000 ####[facility] [address] [place], [address] Platelet mean volume (Bld) [Entitic vol] 9.9 fL Normal 6.2-12.0 [facility] Comment on above: Performed By: #### L 500.4050, L100.0100, L503.6620, L501.4020, L300.8000 ####[facility] [address] [place], [address] Platelets (Bld) [#/Vol] 228 10*3/uL Normal 150-450 [facility] Comment on above: Performed By: #### L 500.4050, L100.0100, L503.6620, L501.4020, L300.8000 ####[facility] [address] [place], [address] RBC (Bld) [#/Vol] 5.07 10*6/uL Normal 4.2-5.4 [facility] Comment on above: Performed By: #### L 500.4050, L100.0100, L503.6620, L501.4020, L300.8000 ####[facility] [address] [place], [address] RDW SD 41.8 fl Normal 35.1-43.9 [facility] Comment on above: Performed By: #### L 500.4050, L100.0100, L503.6620, L501.4020, L300.8000 ####[facility] [address] [place], [address] WBC (Bld) [#/Vol] 9.1 10*3/uL Normal 4.4-11.0 [facility] Comment on above: Performed By: #### L 500.4050, L100.0100, L503.6620, L501.4020, L300.8000 ####[facility] [address] [place], [address] CTA Chest W/WO Contraston CTA Chest W/WO Contrast [facility] Imaging Services [address] [place] [address] CTA Chest W/WO Contrast MR#: [id number] Acct: [id number] Name: DEANGELO BEACH Rep #: [id number] : 1940 F 83 From: Marce corral MD PCP: SUBHASH NAVAS Status: DEP ER Study: CTA Chest W/WO Contrast Date of Exam: 12/07/23 Exam# [id number] Ordering Dr: Jose Parmar MD ADDENDUM by Dr. Marce Burt MD on 12/16/23 at 0810 ADDENDUM [id number] Lung-RADS category 4X: Recommend diagnostic chest CT with and without contrast, PET/CT may be considered if there is a greater than 8 mm solid component, tissue sampling, and/or referral for further clinical evaluation. Electronically Signed: Marce Burt MD at 8:10 EDT , N.B. : Jose Parmar MD, confirmed on 12/07/2023 15:54:36 (ET) that the healthcare facility has received the radiology report. 12/16/23 0810 Date cc: Dr. Jose Parmar MD; SUBHASH NAVAS * Signed ADDENDUM by Dr. Marce Burt MD on 12/07/23 at 1545 [id number] HISTORY: Elevated D dimer. TECHNIQUE: CT angiogram of the chest was performed after the intravenous administration of 100 mL Isovue-370. Post-processing of the angiographic images was performed with multiplanar reformation and 3D reconstruction. Individualized dose optimization techniques were used for this CT. 1079 images. COMPARISON: XR same day. FINDINGS: CENTRAL AIRWAYS: Patent. LUNGS: Mild bilateral bronchial wall thickening. 6 mm noncalcified nodule in the left lower lobe adjacent to the diaphragm. PLEURA: No pneumothorax or significant pleural effusion. HEART/PERICARDIUM: Heart within normal limits in size with coronary artery disease. Trace pericardial fluid. PULMONARY ARTERIES: No filling defect. AORTA/VESSELS: No thoracic aortic aneurysm or dissection flap. Mild atherosclerosis. MEDIASTINUM/EDGAR: 2 x 3.2 cm heterogeneous and lobulated right paratracheal mass, obscured from streak artifact from the adjacent superior vena cava. Mild mass effect on the superior vena cava and right upper lobe pulmonary vessels. OSSEOUS STRUCTURES: Degenerative change. Chronic mild T3 and T9 compression fractures. UPPER ABDOMEN: Borderline dilated small bowel in the biological sciences professor image. 12/07/23 1545 Date cc: Dr. Jose Parmar MD; SUBHASH NAVAS * Signed ADDENDUM by Dr. Marce Burt MD on 12/16/[address]/CTA Chest W/WO Contrast IMPRESSION: undefined 12/16/23 0817 Date cc: Dr. Jose Parmar MD; SUBHASH NAVAS * Signed ADDENDUM by Dr. Marce Burt MD on 12/07/[address]/CTA Chest W/WO Contrast IMPRESSION: 3 cm right paratracheal mass, concerning for malignancy or metastatic lymphadenopathy. 6 mm left lower lobe pulmonary nodule; recommend follow-up Mild bronchitis. No evidence of acute pulmonary embolism. N.B. : Jose Parmar MD, confirmed on 12/07/2023 15:54:36 (ET) that the healthcare facility has received the radiology report. Electronically Signed: Marce Burt MD at 15:45 EDT , 12/07/23 1606 Date cc: Dr. Jose Parmar MD; SUBHASH NAVAS * Signed ACR Level 3 findings have been noted. An addendum which confirms receipt of the report will follow. [id number] HISTORY: Elevated D dimer. TECHNIQUE: CT angiogram of the chest was performed after the intravenous administration of 100 mL Isovue-370. Post-processing of the angiographic images was performed with multiplanar reformation and 3D reconstruction. Individualized dose optimization techniques were used for this CT. 1079 images. COMPARISON: XR same day. FINDINGS: CENTRAL AIRWAYS: Patent. LUNGS: Mild bilateral bronchial wall thickening. 6 mm noncalcified nodule in the left lower lobe adjacent to the diaphragm. PLEURA: No pneumothorax or significant pleural effusion. HEART/PERICARDIUM: Heart within normal limits in size with coronary artery disease. Trace pericardial fluid. PULMONARY ARTERIES: No filling defect. AORTA/VESSELS: No thoracic aortic aneurysm or dissection flap. Mild atherosclerosis. MEDIASTINUM/EDGAR: 2 x 3.2 cm heterogeneous and lobulated right paratracheal mass, obscured from streak artifact from the adjacent superior vena cava. Mild mass effect on the superior vena cava and right upper lobe pulmonary vessels. OSSEOUS STRUCTURES: Degener (more content not included)... Normal [facility] Chest PA and Lateralon 12-06 Chest PA and Lateral [facility] Imaging Services [address] [place], [place] [id number] Chest PA and Lateral MR#: [id number] Acct: [id number] Name: DEANGELO BEACH Rep #: [id number] : 1940 F 83 From: Marce corral MD PCP: SUBHASH NAVAS Status: REG ER Study: Chest PA and Lateral Date of Exam: 12/07/23 Exam# [id number] Ordering Dr: Jose Parmar MD [id number] HISTORY: cough. TECHNIQUE: XR Chest 2 Views. COMPARISON: None. FINDINGS: CARDIOMEDIASTINAL BORDERS: Cardiac silhouette within normal limits in size. Calcification of the aortic knob. LUNGS: Radiographically clear. PLEURA: No pleural effusion or pneumothorax seen. OSSEOUS STRUCTURES: Degenerative change. RAD/Chest PA and Lateral IMPRESSION: No acute cardiopulmonary process identified. Electronically Signed: Marce Burt MD at 14:35 EDT , CC: Dr. Jose Pramar MD; SUBHASH NAVAS Supervisor [employer]: Signed Normal [facility] Comprehensive Metabolic Prof ilon 12-07-2023 Albumin [Mass/Vol] 4.0 g/dL Normal 3.2-5.0 [facility] Comment on above: Order Comment: 'TROP ' Serial specimen #1, #2 or #3: 1 Performed By: #### L 500.4050, L100.0100, L503.6620, L501.4020, L300.8000 ####[facility] [address] [place], [address] Albumin/Globulin [Mass ratio] 1.2 {ratio} Normal 0.9-2.4 [facility] Comment on above: Order Comment: 'TROP ' Serial specimen #1, #2 or #3: 1 Performed By: #### L 500.4050, L100.0100, L503.6620, L501.4020, L300.8000 ####[facility] [address] [place], [address] ALK P 102 U/L Normal 45-117 [facility] Comment on above: Order Comment: 'TROP ' Serial specimen #1, #2 or #3: 1 Performed By: #### L 500.4050, L100.0100, L503.6620, L501.4020, L300.8000 ####[facility] [address] [place], [address] ALT [Catalytic activity/Vol] 25 U/L Normal 13-56 [facility] Comment on above: Order Comment: 'TROP ' Serial specimen #1, #2 or #3: 1 Performed By: #### L 500.4050, L100.0100, L503.6620, L501.4020, L300.8000 ####[facility] [address] [place], [address] AST [Catalytic activity/Vol] 17 U/L Normal 15-37 [facility] Comment on above: Order Comment: 'TROP ' Serial specimen #1, #2 or #3: 1 Performed By: #### L 500.4050, L100.0100, L503.6620, L501.4020, L300.8000 ####[facility] [address] [place], [address] Bilirubin [Mass/Vol] 0.60 mg/dL Normal 0.20-1.00 [facility] Comment on above: Order Comment: 'TROP ' Serial specimen #1, #2 or #3: 1 Result Comment: For patients on eltrombopag therapy, use of Dimension [place] TBIL is not recommended. Performed By: #### L 500.4050, L100.0100, L503.6620, L501.4020, L300.8000 ####[facility] [address] [place], [address] BUN/CRE 19.0 RATIO Normal 10-20 [facility] Comment on above: Order Comment: 'TROP ' Serial specimen #1, #2 or #3: 1 Performed By: #### L 500.4050, L100.0100, L503.6620, L501.4020, L300.8000 ####[facility] [address] [place], [address] CA,Total 9.7 mg/dL Normal 8.5-10.1 [facility] Comment on above: Order Comment: 'TROP ' Serial specimen #1, #2 or #3: 1 Performed By: #### L 500.4050, L100.0100, L503.6620, L501.4020, L300.8000 ####[facility] [address] [place], [address] Chloride [Moles/Vol] 107 mmol/L Normal 98-107 [facility] Comment on above: Order Comment: 'TROP ' Serial specimen #1, #2 or #3: 1 Performed By: #### L 500.4050, L100.0100, L503.6620, L501.4020, L300.8000 ####[facility] [address] [place], [address] CO2 [Moles/Vol] 25.0 mmol/L Normal 21.0-32.0 [facility] Comment on above: Order Comment: 'TROP ' Serial specimen #1, #2 or #3: 1 Performed By: #### L 500.4050, L100.0100, L503.6620, L501.4020, L300.8000 ####[facility] [address] [place], [address] Creatinine [Mass/Vol] 1.00 mg/dL Normal 0.55-1.02 [facility] Comment on above: Order Comment: 'TROP ' Serial specimen #1, #2 or #3: 1 Result Comment: The validity of the calculated GFR GFRAA in patients over 70 years has not been determined. Clinical correlation is essential. Performed By: #### L 500.4050, L100.0100, L503.6620, L501.4020, L300.8000 ####[facility] [address] [place], [address] ECRCL 44.58 ml/min Normal [facility] Comment on above: Order Comment: 'TROP ' Serial specimen #1, #2 or #3: 1 Performed By: #### L 500.4050, L100.0100, L503.6620, L501.4020, L300.8000 ####[facility] [address] [place], [address] EST GFR - AA 68 mL/min Normal >60 [facility] Comment on above: Order Comment: 'TROP ' Serial specimen #1, #2 or #3: 1 Result Comment: Afri can [place] GFR Calc Performed By: #### L 500.4050, L100.0100, L503.6620, L501.4020, L300.8000 ####[facility] [address] [place], [address] GAP 7 Normal 5-15 [facility] Comment on above: Order Comment: 'TROP ' Serial specimen #1, #2 or #3: 1 Performed By: #### L 500.4050, L100.0100, L503.6620, L501.4020, L300.8000 ####[facility] [address] [place], [address] GFR/1.73 sq M.predicted among non-blacks MDRD (S/P/Bld) [Vol rate/Area] 56 mL/min/{1.73_m2} Low >60 [facility] Comment on above: Order Comment: 'TROP ' Serial specimen #1, #2 or #3: 1 Result Comment: Non- GFR Calc Performed By: #### L 500.4050, L100.0100, L503.6620, L501.4020, L300.8000 ####[facility] [address] [place], [address] Globulin (S) [Mass/Vol] 3.4 g/dL Normal 2.2-4.2 [facility] Comment on above: Order Comment: 'TROP ' Serial specimen #1, #2 or #3: 1 Performed By: #### L 500.4050, L100.0100, L503.6620, L501.4020, L300.8000 ####[facility] [address] [place], [address] Glucose [Mass/Vol] 100 mg/dL Normal 74-106 [facility] Comment on above: Order Comment: 'TROP ' Serial specimen #1, #2 or #3: 1 Result Comment: Fast ing Glucose result from 100 to 125 mg/dL suggests IMPAIRED HOMEOSTASIS per A.D.A. criteria. Performed By: #### L 500.4050, L100.0100, L503.6620, L501.4020, L300.8000 ####[facility] [address] [place], [address] Potassium [Moles/Vol] 3.6 mmol/L Normal 3.5-5.1 [facility] Comment on above: Order Comment: 'TROP ' Serial specimen #1, #2 or #3: 1 Performed By: #### L 500.4050, L100.0100, L503.6620, L501.4020, L300.8000 ####[facility] [address] [place], [address] Sodium [Moles/Vol] 139 mmol/L Normal 136-145 [facility] Comment on above: Order Comment: 'TROP ' Serial specimen #1, #2 or #3: 1 Performed By: #### L 500.4050, L100.0100, L503.6620, L501.4020, L300.8000 ####[facility] [address] [place], [address] T PROT 7.4 g/dL Normal 6.4-8.2 [facility] Comment on above: Order Comment: 'TROP ' Serial specimen #1, #2 or #3: 1 Performed By: #### L 500.4050, L100.0100, L503.6620, L501.4020, L300.8000 ####[facility] [address] [place], [address] Urea nitrogen [Mass/Vol] 19 mg/dL High 7-18 [facility] Comment on above: Order Comment: 'TROP ' Serial specimen #1, #2 or #3: 1 Performed By: #### L 500.4050, L100.0100, L503.6620, L501.4020, L300.8000 ####[facility] [address] [place], [address] D-Dimer Quantitative (DVT/PE )on 12-07-2023 D-DIMER QUANT 0.85 FEU/ug/m Invalid Interpretation Code 0.27-0.49 [facility] Comment on above: Result Comment: D-Di rossy ELEVATED (>0.49): Additional studies and clinical assessments are indicated to conclude diagnosis of: Deep Vein Thrombosis (DVT) or Pulmonary Embolism (PE) Performed By: #### L 500.4050, L100.0100, L503.6620, L501.4020, L300.8000 ####[facility] [address] [place], [place], [id number] Emergency Department Summary on 12-07-2023 Emergency Department Summary [facility] Medical Records Department [address] [place] [address] Emergency Department Summary 12/07/23 MR#: [id number] Acct: [id number] Name: DEANGELO BEACH Rep #: [id number] : 1940 83 From: Jose Parmar MD PCP: SUBHASH NAVAS Status:REG ER Location: ED HPI History of Present Illness Chief Complaint: Cough Onset/Context/Timing Worsened by: Lying flat Relieved by: Nothing Narrative Narrative: 83-year-old female presents from urgent care with cough for a month. She states she is also had a rash on her chest and neck for a month as well. They noticed a high heart rate at urgent care and sent her in for testing. She thinks her left foot may be more swollen than the right as well. She denies any chest pain but states that she has a sometime productive cough and may feel short of breath. She cannot sleep at night. Sometimes is worse when she lays flat. No fevers or chills, no nausea or vomiting. No exacerbating or alleviating factors except for sitting upright and lying flat making it worse. [facility] Medical History Hyperlipemia Hypertension Cancer of kidney Home Medications ???Medication ???Instructions ???Recorded ???Last Taken ???Type metoprolol succinate 25 mg 25 mg PO DAILY 12/27/22 Unknown History tablet,extended release 24 hr montelukast 10 mg tablet 10 mg PO QHS 12/27/22 Unknown History pravastatin 40 mg tablet 40 mg PO DAILY 12/27/22 Unknown History diclofenac sodium 1 % topical gel 2 ea topical 4X/DAY 07/31/23 Unknown History hydrocodone-acetaminophen 5-325mg 1 tab PO Q6H PRN pain 3 days #12 07/31/23 Unknown Rx 5mg-325mg TABLETS hydrocortisone 2.5 % topical cream 1 applic topical BID PRN rash 7 12/07/23 Unknown Rx days #30 grams Allergy/AdvReac Type Severity Reaction Status Date / Time Latex, Natural Rubber Allergy Intermediate Rash Verified 12/07/23 12:55 Family History no significant family his Surgical History H/O: hysterectomy H/O right nephrectomy Social History Smoking Status: Never smoker ROS ROS ED ROS Narrative Constitutional: No fever, no chills. HEENT: No sore throat. No neck pain. No loss of vision. No rhinorrhea. Cardiovascular: No chest pain. No palpitations. No pedal edema. Respiratory: 1 month occasionally productive cough, no shortness of breath. Abdominal: No abdominal pain. No nausea. No vomiting. Genitourinary: No dysuria. No hematuria. Musculoskeletal: No myalgias. No arthralgias. Neurologic: No headaches. No dizziness. No lightheadedness. Skin: Positive itchy, burning rash on neck and chest. No change in color. Psychiatric: No depression. No anxiety. EXAM Physical Exam Narrative Exam Narrative: Afebrile. Vital signs noted. Nontoxic-appearing. HEENT examination reveals PERRL, EOMI. Airway patent. Neck soft and supple without meningismus. Cardiovascular examination reveals a regular tachycardia as high as 126 bpm. Lungs are clear to auscultation bilaterally. Abdomen soft nontender with normoactive bowel sounds. Neurological examination shows her to be awake, alert, nonfocal, nonlateralizing. Skin examination does reveal dermatitis type rash on her neck and on her upper chest. No purulent drainage. No crepitance. There is bilateral pedal edema, I do not feel its asymmetric. Const Vital Signs: 12/07/23 12:55 12/07/23 13:01 12/07/23 13:07 Temperature 97.3 F L 98.5 F Temperature Source Temporal Temporal Pulse Rate 126 H 116 H Respiratory Rate 22 H 20 H Respiratory Effort Short of Breath Respiratory Depth Normal Respiratory Pattern Tachypnea Blood Pressure 155/74 H 142/106 H Blood Pressure Mean 101 118 Pulse Ox 93 94 Oxygen Delivery Method Room Air Room Air Room Air 12/07/23 14:01 12/07/23 15:00 12/07/23 15:00 Temperature 98.5 F 98 F Temperature Source Temporal Temporal Pulse Rate 114 H 95 92 Respiratory Rate 20 H 22 H 20 H Respiratory Effort Respiratory Depth Respiratory Pattern Blood Pressure 142/70 H 125/57 H 125/57 H Blood Pressure Mean 94 79 79 Pulse Ox 95 96 95 Oxygen Delivery Method Room Air Room Air MDM MDM MDM Narrative Medical decision making narrative: Differential diagnosis includes but not limited to pneumonia versus pneumothorax versus pulmonary embolism versus atrial fibrillation with RVR. CHF is also in the differential diagnosis but she does not have a history of this. She also does not have a history of COPD. Chest x-ray 2 views will be obtained. I will also obtain a D-dimer. EKG was obtained and interpreted by myself independently as sinus tachycardia at 109 bpm without ectopy or acute ST ch (more content not included)... Normal [facility] L501.4020on 12-07-2023 TROPONIN-I HS 6 pg/mL Normal 3.0-54.0 [facility] Comment on above: Order Comment: 'TROP ' Serial specimen #1, #2 or #3: 1 Result Comment: Plea se Note: New Test Units and Gender Specific Reference Ranges. For more information see Policy Stat Procedure [place] High Sensitivity Troponin (TNIH) and attachments. Performed By: #### L 500.4050, L100.0100, L503.6620, L501.4020, L300.8000 ####[facility] [address] [facility] [place], [address] Abdomen/Pelvis without Conto n 07-31-2023 Abdomen/Pelvis without Cont [facility] Imaging Services [address] [place] [address] Abdomen/Pelvis without Cont MR#: [id number] Acct: [id number] Name: DEANGELO BEACH Rep #: [id number] : 1940 F 83 From: Krysta Land PCP: SUBHASH NAVAS Status: REG ER Study: Abdomen/Pelvis without Cont Date of Exam: 07/14 11/05 Exam# [id number] Ordering Dr: Gary Joyner DO [id number] INDICATION: Kidney Stone EXAMINATION: CT ABDOMEN AND PELVIS WITHOUT CONTRAST - CT Abdomen And Pelvis W/O Contrast Injection TECHNIQUE: Helically acquired images were obtained of the abdomen and pelvis without oral or IV contrast. A radiation dose optimization technique was used for this scan. IV Contrast dosage and agent: None. Oral contrast: None. RADIATION DOSAGE (If Supplied By Facility): CTDIvol = ( 11.71 ) mGy, DLP = ( 605.40 ) mGycm COMPARISON: CT Abdomen/PelvisOct 2022 5:00am FINDINGS: LOWER THORAX: Coronary artery calcifications. Lung bases are clear. No cardiomegaly. No significant pericardial effusion. ABDOMEN: LIVER: Unremarkable. Homogeneous. GALLBLADDER AND BILE DUCTS: Cholelithiasis. No gallbladder distention or wall edema. No intra- or extrahepatic biliary ductal dilation. PANCREAS: Unremarkable. No focal cystic mass. SPLEEN: Unremarkable. Normal size without focal cystic or solid mass. ADRENALS: Unremarkable. No nodules. KIDNEYS AND URETERS: Right kidney is absent. Multiple parapelvic cysts left kidney. No hydronephrosis. STOMACH AND BOWEL: Scattered diverticula without diverticulitis. No stomach or bowel distention. PELVIS: APPENDIX: Normal appendix. BLADDER: Unremarkable. REPRODUCTIVE: Hysterectomy. Simple appearing cyst measuring 3.9 cm right adnexa unchanged since previous exam. Simple appearing cyst measuring 3.9 cm left adnexa unchanged since previous exam. ABDOMEN and PELVIS: INTRAPERITONEAL SPACE: Unremarkable. No ascites or other fluid collection. No free air. BONES/JOINTS: Unremarkable. No suspicious lytic or blastic abnormality. SOFT TISSUES: Unremarkable. No discrete abdominal or pelvic wall hernia. VASCULATURE: See above. LYMPH NODES: Unremarkable. No enlarged lymph nodes. CT/Abdomen/Pelvis without Cont IMPRESSION: 1. Multiple parapelvic cysts left kidney. No no hydronephrosis. 2. Cholelithiasis. 3. Scattered diverticula without diverticulitis. 4. Bilateral simple appearing cysts each measuring 3.9 cm unchanged as previous exam. No follow-up imaging necessary. Electronically Signed: Krysta Solo MD at 23:26 EDT Reading Location ID and State: [facility] / [place] Tel , Service support , CC: Dr. Gary Joyner, DO; SUBHASH NAVAS Supervisor [employer]: Signed Normal [facility] Absolute lymphocyte countOrd ered By: Gary Joyner on 07-31-2023 Lymphocytes Auto (Unsp spec) [#/Vol] 1.59 10*3/uL 0.83-4.51 [facility] Automated lymphocyte count a s percentage of total leukocytesOrdered By: Gary Joyner on 07-31-2023 Lymphocytes/100 WBC Auto (Unsp spec) 25.0 % 19-41 [facility] Basic Metabolic Profile (BMP )on 07-31-2023 BUN/CRE 17.9 RATIO Normal 10-20 [facility] Comment on above: Performed By: #### L 500.2500, L100.0100 #### [facility] [address] [place], [address] CA,Total 9.6 mg/dL Normal 8.5-10.1 [facility] Comment on above: Performed By: #### L 500.2500, L100.0100 #### [facility] [address] [place], [address] Chloride [Moles/Vol] 107 mmol/L Normal 98-107 [facility] Comment on above: Performed By: #### L 500.2500, L100.0100 #### [facility] [address] [place], [address] CO2 [Moles/Vol] 29.0 mmol/L Normal 21.0-32.0 [facility] Comment on above: Performed By: #### L 500.2500, L100.0100 #### [facility] [address] [place], [address] Creatinine [Mass/Vol] 0.95 mg/dL Normal 0.55-1.02 [facility] Comment on above: Result Comment: The validity of the calculated GFR GFRAA in patients over 70 years has not been determined. Clinical correlation is essential. Performed By: #### L 500.2500, L100.0100 #### [facility] [address] [place], [address] ECRCL 46.98 ml/min Normal [facility] Comment on above: Performed By: #### L 500.2500, L100.0100 #### [facility] [address] [place], [address] EST GFR - AA 72 mL/min Normal >60 [facility] Comment on above: Result Comment: Afri can Norwegian GFR Calc Performed By: #### L 500.2500, L100.0100 #### [facility] [address] [place], [address] GAP 4 Low 5-15 [facility] Comment on above: Performed By: #### L 500.2500, L100.0100 #### [facility] [address] [place], [address] GFR/1.73 sq M.predicted among non-blacks MDRD (S/P/Bld) [Vol rate/Area] 60 mL/min/{1.73_m2} Normal >60 [facility] Comment on above: Result Comment: Non- GFR Calc Performed By: #### L 500.2500, L100.0100 #### [facility] [address] [place], [address] Glucose [Mass/Vol] 99 mg/dL Normal 74-106 [facility] Comment on above: Performed By: #### L 500.2500, L100.0100 #### [facility] [address] [place], [address] Potassium [Moles/Vol] 4.1 mmol/L Normal 3.5-5.1 [facility] Comment on above: Performed By: #### L 500.2500, L100.0100 #### [facility] [address] [place], [address] Sodium [Moles/Vol] 140 mmol/L Normal 136-145 [facility] Comment on above: Performed By: #### L 500.2500, L100.0100 #### [facility] [address] [place], [address] Urea nitrogen [Mass/Vol] 17 mg/dL Normal 7-18 [facility] Comment on above: Performed By: #### L 500.2500, L100.0100 #### [facility] [address] [place], [address] Basophil percentageOrdered B y: Gary Joyner on 07-31-2023 Basophil percentage 0-5 SEEN /hpf 0-5 [facility] Basophils/100 WBC (Bld) 0.5 % 0-1 [facility] Chloride [Moles/Vol] 107 mmol/L 98-107 [facility] Eosinophils/100 WBC (Bld) 6.3 % 0-5 [facility] Glucose [Mass/Vol] 99 mg/dL 74-106 [facility] Hemoglobin (Bld) [Mass/Vol] 14.8 g/dL 12.0-15.0 [facility] Monocytes/100 WBC (Bld) 8.8 % 0-10 [facility] Neutrophils (Bld) [#/Vol] 3.8 10*3/uL 2.0-7.7 [facility] Neutrophils/100 WBC (Bld) 59.2 % 47-70 [facility] Potassium [Moles/Vol] 4.1 mmol/L 3.5-5.1 [facility] Sodium [Moles/Vol] 140 mmol/L 136-145 [facility] WBC (Bld) [#/Vol] 6.4 10*3/uL 4.4-11.0 [facility] Bilirubin Test strip Ql (U)O rdered By: Gary Joyner on 07-31-2023 Bilirubin Ql (U) Negative Negative [facility] CBC W/Diff, Automatedon 07-14 Absolute Lymph 1.59 X10 3/uL Normal 0.83-4.51 [facility] Comment on above: Performed By: #### L 500.2500, L100.0100 #### [facility] [address] [place], [address] Absolute Neut 3.8 X10 3/uL Normal 2.0-7.7 [facility] Comment on above: Performed By: #### L 500.2500, L100.0100 #### [facility] [address] [place], [address] Basophils/100 WBC (Bld) 0.5 % Normal 0-1 [facility] Comment on above: Performed By: #### L 500.2500, L100.0100 #### [facility] [address] [place], [address] Eosinophils/100 WBC (Bld) 6.3 % High 0-5 [facility] Comment on above: Performed By: #### L 500.2500, L100.0100 #### [facility] [address] [place], [address] Erythrocyte distribution width (RBC) [Ratio] 12.8 % Normal 11.6-14.6 [facility] Comment on above: Performed By: #### L 500.2500, L100.0100 #### [facility] [address] [place], [address] Hematocrit (Bld) [Volume fraction] 45.8 % Normal 37-47 [facility] Comment on above: Performed By: #### L 500.2500, L100.0100 #### [facility] [address] [place], [address] Hemoglobin (Bld) [Mass/Vol] 14.8 g/dL Normal 12.0-15.0 [facility] Comment on above: Performed By: #### L 500.2500, L100.0100 #### [facility] [address] [place], [address] IG% 0.200 Normal 0.0-0.9 [facility] Comment on above: Result Comment: IG% - Immature Granulocytes (promyelocytes, myelocytes and metamyelocytes) > 1% indicates that a LEFT SHIFT is Present. Performed By: #### L 500.2500, L100.0100 #### [facility] [address] [place], [address] Lymphocytes/100 WBC (Bld) 25.0 % Normal 19-41 [facility] Comment on above: Performed By: #### L 500.2500, L100.0100 #### [facility] [address] [place], [address] MCH (RBC) [Entitic mass] 30.0 pg Normal 27.0-32.0 [facility] Comment on above: Performed By: #### L 500.2500, L100.0100 #### [facility] [address] [place], [address] MCHC (RBC) [Mass/Vol] 32.3 g/dL Normal 32-36 [facility] Comment on above: Performed By: #### L 500.2500, L100.0100 #### [facility] [address] [place], [address] MCV (RBC) [Entitic vol] 92.7 fL Normal 81-99 [facility] Comment on above: Performed By: #### L 500.2500, L100.0100 #### [facility] [address] [place], [address] Monocytes/100 WBC (Bld) 8.8 % Normal 0-10 [facility] Comment on above: Performed By: #### L 500.2500, L100.0100 #### [facility] [address] [place], [address] Neutrophils/100 WBC (Bld) 59.2 % Normal 47-70 [facility] Comment on above: Performed By: #### L 500.2500, L100.0100 #### [facility] [address] [place], [address] Nucleated RBC (Bld) [#/Vol] 0 10*3/uL Normal 0-5 [facility] Comment on above: Performed By: #### L 500.2500, L100.0100 #### [facility] [address] [place], [address] Platelet mean volume (Bld) [Entitic vol] 10.3 fL Normal 6.2-12.0 [facility] Comment on above: Performed By: #### L 500.2500, L100.0100 #### [facility] [address] [place], [address] Platelets (Bld) [#/Vol] 225 10*3/uL Normal 150-450 [facility] Comment on above: Performed By: #### L 500.2500, L100.0100 #### [facility] [address] [place], [address] RBC (Bld) [#/Vol] 4.94 10*6/uL Normal 4.2-5.4 [facility] Comment on above: Performed By: #### L 500.2500, L100.0100 #### [facility] [address] [place], [address] RDW SD 43.3 fl Normal 35.1-43.9 [facility] Comment on above: Performed By: #### L 500.2500, L100.0100 #### [facility] [address] [place], [address] WBC (Bld) [#/Vol] 6.4 10*3/uL Normal 4.4-11.0 [facility] Comment on above: Performed By: #### L 500.2500, L100.0100 #### [facility] [address] [place], [address] Calcium oxalate crystals det ection in urine sediment by light microscopyOrdered By: Gary Joyner on 07-31-2023 Calcium oxalate crystals LM Ql (Urine sed) 1+ /hpf [facility] Determination of erythrocyte mean corpuscular volume (MCV)Ordered By: Gary Joyner on 07-31-2023 MCV (RBC) [Entitic vol] 92.7 fL 81-99 [facility] Emergency Department Summary on 07-31-2023 Emergency Department Summary [facility] Medical Records Department [address] [place] [address] Emergency Department Summary 07/31/23 MR#: [id number] Acct: [id number] Name: DEANGELO BEACH Holly Rep #: [id number] : 1940 83 From: Gary Joyner DO PCP: SUBHASH NAVAS Status:REG ER Location: ED HPI HPI - GI History of Present Illness Chief Complaint: Back Narrative Narrative: 83-year-old female presenting with right-sided back pain. She states 3 present for 6 days. She says in the past sensitive musculoskeletal but also is concerned because quite well. She states that she went to urgent care and she was given some cream to put on topically but this did not help. She states that Tylenol and ibuprofen do not help. Patient states she only has 1 kidney due to nephrectomy on the right due to renal cell carcinoma. Patient states that she has not had nausea. She denies urinary or vaginal complaints. She denies constipation or diarrhea. No direct trauma to the back. No saddle anesthesia, urinary retention. [facility] Medical History Cancer of kidney Hyperlipemia Hypertension Home Medications metoprolol succinate 25 mg tablet,extended release 24 hr 25 mg PO DAILY 12/27/22 [History Last Taken Unknown] montelukast 10 mg tablet 10 mg PO QHS 12/27/22 [History Last Taken Unknown] pravastatin 40 mg tablet 40 mg PO DAILY 12/27/22 [History Last Taken Unknown] diclofenac sodium 1 % topical gel 2 ea topical 4X/DAY 07/31/23 [History Last Taken Unknown] hydrocodone-acetaminophen 5-325mg 5mg-325mg 1 tab PO Q6H PRN pain 3 days #12 TABLETS 07/31/23 [Rx Last Taken Unknown] Allergy/AdvReac Type Severity Reaction Status Date / Time Latex, Natural Rubber Allergy Intermediate Rash Verified 07/31/23 19:57 Surgical History H/O right nephrectomy H/O: hysterectomy Social History Smoking Status: Never smoker ROS ROS ED Constitutional Constitutional ED: Denies chills, fever(s) or sweats Eyes Eyes: Denies blurry vision or change in vision ENT ENT ED: Denies ear pain or sore throat Cardiovascular Cardiovascular: Denies chest pain, palpitations or racing heartbeat Respiratory/Chest Respiratory/Chest: Denies cough, dyspnea or sputum Gastrointestinal Gastrointestinal: Denies abdominal pain, constipation, diarrhea, nausea or vomiting Genitourinary Genitourinary ED: Denies dysuria, hematuria or urinary frequency Musculoskeletal Musculoskeletal: Reports back pain; Denies arthralgias, myalgias or neck pain Integumentary Denies abscess, Abrasions or rash Neurologic Neurologic: Denies headache(s), paresthesias or weakness Psychiatric Psychiatric: Denies anxiety, depression, suicidal ideation or suicidal thoughts Endocrine Endocrinology: Denies polydipsia or polyuria EXAM Physical Exam Const Vital Signs: 07/31/23 19:55 07/31/23 21:40 Temperature 96.9 F L 97.7 F L Temperature Source Temporal Oral Pulse Rate 105 H 87 Respiratory Rate 20 H 18 Blood Pressure 136/88 H 130/86 H Blood Pressure Mean 104 100 Pulse Ox 96 96 Oxygen Delivery Method Room Air Room Air Positive well nourished General Appearance ED: NAD HEENT Reports moist mucous membranes normocephalic Eyes PERRL and EOMs intact bilaterally Resp normal respiratory effort Auscultation: Negative for rales, rhonchi or wheezes Cardio regular rate and regular rhythm GI non-distended Back/Spine Back/Spine Narrative: Right lower thoracic and upper lumbar paraspinal musculature tenderness. No obvious CVA tenderness. No rashes, ecchymosis. Neuro CN's II-XII intact bilaterally Sensorium / Orientation: alert Psych mental status grossly normal Skin no wounds MDM MDM MDM Narrative Medical decision making narrative: Patient presenting right-sided back pain. She states she has not been getting much relief from the cream that was prescribed to her. Tylenol ibuprofen not helping. Denies any trauma. Differential includes kidney stone, UTI, pyelonephritis, constipation. Patient also has concerns has a history of renal cell cancer. Patient medicated with morphine, Zofran. She is given a liter of normal saline. CBC to assess white blood cell count, hemoglobin, platelets. BMP to assess renal function and electrolytes. Urinalysis to assess for UTI. CT of the abdomen pelvis without contrast will be obtained. CBC and BMP unremarkable. Urinalysis negative for infection. CT of the abdomen pelvis was negative as well although the patient does have some gallstones on exam. She is not tender in her right upper quadrant. I will write for a prescription for [place] for home. She will be discharged to follow-up with her PCP. Return pre (more content not included)... Normal [facility] Erythrocyte distribution wid th ratioOrdered By: Gary Joyner on 07-31-2023 Erythrocyte distribution width (RBC) [Ratio] 12.8 % 11.6-14.6 [facility] Erythrocyte distribution wid th standard deviationOrdered By: Gary Joyner on 07-31-2023 Erythrocyte distribution width (RBC) [Entitic vol] 43.3 fL 35.1-43.9 [facility] Hematocrit Auto (Bld) [Volum e fraction]Ordered By: Gary Joyner on 07-31-2023 Hematocrit (Bld) [Volume fraction] 45.8 % 37-47 [facility] Immature granulocytes/100 WB C Auto (Bld)Ordered By: Gary Joyner on 07-31-2023 Immature granulocytes/100 WBC (Bld) 0.200 % 0.0-0.9 [facility] Comment on above: IG% - Immature Granu locytes (promyelocytes, myelocytes and metamyelocytes) > 1% indicates that a LEFT SHIFT is Present. Ketones Test strip Ql (U)Ord ered By: Gary Joyner on 07-31-2023 Ketones Ql (U) Negative Negative [facility] - Chemistry and C hemistry - challengeOrdered By: Gary Joyner on 07-31-2023 CO2 [Moles/Vol] 29.0 mmol/L 21.0-32.0 [facility] Urea nitrogen/Creatinine [Mass ratio] 17.9 mg/mg 10-20 [facility] - Hematology and Cell countsOrdered By: Gary Joyner on 07-31-2023 MCH (RBC) [Entitic mass] 30.0 pg 27.0-32.0 [facility] MCHC (RBC) [Mass/Vol] 32.3 g/dL 32-36 [facility] Nucleated RBC/100 WBC (Bld) [Ratio] 0 % 0-5 [facility] Platelet mean volume (Bld) [Entitic vol] 10.3 fL 6.2-12.0 [facility] Platelets (Bld) [#/Vol] 225 10*3/uL 150-450 [facility] Mucus LM Ql (Urine sed)Order ed By: Gary Joyner on 07-31-2023 Mucus Ql (Urine sed) 0 SEEN /hpf [facility] Nitrite Test strip Ql (U)Ord ered By: Gary Joyner on 07-31-2023 Nitrite Ql (U) Negative Negative [facility] No Panel InformationOrdered By: Gary Joyner on 07-31-2023 Urine RBC 0-5 SEEN /hpf 0-5 [facility] Estimated Creatinine Clearance Calc 46.98 ml/min [facility] Estimated GFR (MDRD) Amer 72 mL/min >60 [facility] Comment on above: GFR Calc Estimated GFR (MDRD) Non-Af Amer 60 mL/min >60 [facility] Comment on above: Non- GFR Calc Protein Test strip Ql (U)Ord ered By: Gary Joyner on 07-31-2023 Protein Ql (U) Negative Negative [facility] RBC Auto (Bld) [#/Vol]Ordere d By: Gary Joyner on 07-31-2023 RBC (Bld) [#/Vol] 4.94 10*6/uL 4.2-5.4 [facility] Serum or plasma calcium micah urement (mass/volume)Ordered By: Gary Joyner on 07-31-2023 Calcium [Mass/Vol] 9.6 mg/dL 8.5-10.1 [facility] Serum or plasma creatinine m easurement (mass/volume)Ordered By: Gary Joyner on 07-31-2023 Creatinine [Mass/Vol] 0.95 mg/dL 0.55-1.02 [facility] Comment on above: The validity of the calculated GFR & GFRAA in patients over 70 years has not been determined. Clinical correlation is essential. Serum or plasma urea nitroge n measurement (mass/volume)Ordered By: Gary Joyner on 07-31-2023 Urea nitrogen [Mass/Vol] 17 mg/dL 7-18 [facility] Squamous epithelial cells de tection in urine sediment by light microscopyOrdered By: Gary Joyner on 07-31-2023 Epithelial cells.squamous LM Ql (Urine sed) 0-5 SEEN /hpf 5-10 [facility] Thin prep Papanicolaou smear with manual screeningOrdered By: Gary Joyner on 07-31-2023 Thin prep Papanicolaou smear with manual screening 4 5-15 [facility] Urinalysis, Completeon 07-30 CA OX CRYSTAL 1+ /hpf Normal [facility] Comment on above: Order Comment: COLLE CTOR TO SPECIFY Performed By: #### L 400.0001 ####[facility] [address] [place], [address] EPI,SQUAMOUS 0-5 SEEN Normal 5-10 [facility] Comment on above: Order Comment: YOLANDA CTOR TO SPECIFY Performed By: #### L 400.0001 ####[facility] [address] [place], [address] RBC 0-5 SEEN Normal 0-5 [facility] Comment on above: Order Comment: YOLANDA CTOR TO SPECIFY Performed By: #### L 400.0001 ####[facility] [address] [place], [address] WBC 0-5 SEEN Normal 0-5 [facility] Comment on above: Order Comment: YOLANDA CTOR TO SPECIFY Performed By: #### L 400.0001 ####[facility] [address] [place], [address] BACTERIA 0 SEEN Normal None Seen [facility] Comment on above: Order Comment: YOLANDA CTOR TO SPECIFY Performed By: #### L 400.0001 ####[facility] [address] [place], [address] Mucus Ql (Urine sed) 0 SEEN Normal [facility] Comment on above: Order Comment: YOLANDA CTOR TO SPECIFY Performed By: #### L 400.0001 ####[facility] [address] [place], [address] Urine blood detectionOrdered By: Gary Joyner on 07-31-2023 RBC Ql (U) 25 /ul Negative [facility] Urine clarityOrdered By: Bishop Joyner on 07-31-2023 Clarity (U) Clear Clear [facility] Urine color determinationOrd ered By: Gary Joyner on 07-31-2023 Color (U) Yellow Yellow [facility] Urine glucose detectionOrder ed By: Gary Joyner on 07-31-2023 Glucose Ql (U) Normal mg/dl Normal [facility] Urine leukocyte esterase det ection by dipstickOrdered By: Gary Joyner on 07-31-2023 Leukocyte esterase Test strip Ql (U) 25 /ul Negative [facility] Urine pHOrdered By: Gary patterson on 07-31-2023 pH (U) 5.0 [pH] 5.0 - 8.0 [facility] Urine sediment bacteria coun t by microscopy (number/high power field)Ordered By: Gary Joyner on 07-31-2023 Bacteria LM.HPF (Urine sed) [#/Area] 0 /[HPF] None Seen [facility] Urine specific gravity measu rementOrdered By: Gary Joyner on 07-31-2023 Specific gravity (U) [Rel density] 1.020 1.002-1.030 [facility] Urine urobilinogen measureme ntOrdered By: Gary Joyner on 07-31-2023 Urobilinogen Ql (U) Normal mg/dl Normal [facility] Absolute lymphocyte countOrd ered By: Mark Hodge on 02-09-2023 Lymphocytes Auto (Unsp spec) [#/Vol] 1.84 10*3/uL 0.83-4.51 [facility] Basophil percentageOrdered B y: Mark Hodge on 02-09-2023 Basophil percentage 0-5 SEEN /hpf 0-5 [facility] Basophils/100 WBC (Bld) 0.4 % 0-1 [facility] Bilirubin [Mass/Vol] 0.40 mg/dL 0.20-1.00 [facility] Comment on above: For patients on eltr ombopag therapy, use of Dimension [place] TBIL is not recommended. Chloride [Moles/Vol] 107 mmol/L 98-107 [facility] Eosinophils/100 WBC (Bld) 5.0 % 0-5 [facility] Glucose [Mass/Vol] 105 mg/dL 74-106 [facility] Comment on above: Fasting Glucose resu lt from 100 to 125 mg/dL suggests IMPAIRED HOMEOSTASIS per A.D.A. criteria. Neutrophils (Bld) [#/Vol] 4.2 10*3/uL 2.0-7.7 [facility] Neutrophils/100 WBC (Bld) 59.7 % 47-70 [facility] Potassium [Moles/Vol] 3.8 mmol/L 3.5-5.1 [facility] Protein [Mass/Vol] 7.1 g/dL 6.4-8.2 [facility] Sodium [Moles/Vol] 138 mmol/L 136-145 [facility] WBC (Bld) [#/Vol] 7.0 10*3/uL 4.4-11.0 [facility] Bilirubin Test strip Ql (U)O rdered By: Mark Hodge on 02-09-2023 Bilirubin Ql (U) Negative Negative [facility] Blood erythrocytes count (nu mber/volume)Ordered By: Mark Hodge on 02-09-2023 RBC (Bld) [#/Vol] 5.00 10*6/uL 4.2-5.4 [facility] Blood hemoglobin measurement (mass/volume)Ordered By: Mark Hodge on 02-09-2023 Hemoglobin (Bld) [Mass/Vol] 15.3 g/dL 12.0-15.0 [facility] Blood lymphocytes/100 leukoc ytesOrdered By: Mark Hodge on 02-09-2023 Lymphocytes/100 WBC (Bld) 26.2 % 19-41 [facility] Blood monocytes/100 leukocyt esOrdered By: Mark Hodge on 02-09-2023 Monocytes/100 WBC (Bld) 8.4 % 0-10 [facility] Blood platelet mean volumeOr dered By: Mark Hodge on 02-09-2023 Platelet mean volume (Bld) [Entitic vol] 10.1 fL 6.2-12.0 [facility] Determination of erythrocyte mean corpuscular volume (MCV)Ordered By: Mark Hodge on 02-09-2023 MCV (RBC) [Entitic vol] 92.4 fL 81-99 [facility] Hematocrit Auto (Bld) [Volum e fraction]Ordered By: Mark Hodge on 02-09-2023 Hematocrit (Bld) [Volume fraction] 46.2 % 37-47 [facility] Ketones Test strip Ql (U)Ord ered By: Mark Hodge on 02-09-2023 Ketones Ql (U) Negative Negative [facility] - Chemistry and C hemistry - challengeOrdered By: Mark Hodge on 02-09-2023 ALP [Catalytic activity/Vol] 95 U/L 45-117 [facility] ALT [Catalytic activity/Vol] 22 U/L 13-56 [facility] CO2 [Moles/Vol] 29.0 mmol/L 21.0-32.0 [facility] Globulin (S) [Mass/Vol] 3.4 g/dL 2.2-4.2 [facility] Lipase [Catalytic activity/Vol] 25 U/L 13-75 [facility] Comment on above: Please note:LIPASE r evised reference range effective 22. New Lipase methodology. Expected to produce lower values than the previous assay method. NEW Reference Range: 13 - 75 U/L Urea nitrogen/Creatinine [Mass ratio] 20.7 mg/mg 10-20 [facility] - Hematology and Cell countsOrdered By: Mark Hodge on 02-09-2023 Erythrocyte distribution width (RBC) [Entitic vol] 42.7 fL 35.1-43.9 [facility] Erythrocyte distribution width (RBC) [Ratio] 12.6 % 11.6-14.6 [facility] Immature granulocytes/100 WBC (Bld) 0.300 % 0.0-0.9 [facility] Comment on above: IG% - Immature Granu locytes (promyelocytes, myelocytes and metamyelocytes) > 1% indicates that a LEFT SHIFT is Present. MCH (RBC) [Entitic mass] 30.6 pg 27.0-32.0 [facility] Nucleated RBC/100 WBC (Bld) [Ratio] 0 % 0-5 [facility] MCHC Auto (RBC) [Mass/Vol]Or dered By: Mark Hodge on 02-09-2023 MCHC (RBC) [Mass/Vol] 33.1 g/dL 32-36 [facility] Mucus LM Ql (Urine sed)Order ed By: Mark Hodge on 02-09-2023 Mucus Ql (Urine sed) 0 SEEN /hpf [facility] Nitrite Test strip Ql (U)Ord ered By: Mark Hodge on 02-09-2023 Nitrite Ql (U) Negative Negative [facility] No Panel InformationOrdered By: Mark Hodge on 10-28-2023 Estimated Creatinine Clearance Calc 41.86 ml/min [facility] Estimated GFR (MDRD) Amer 71 mL/min >60 [facility] Comment on above: GFR Calc Estimated GFR (MDRD) Non-Af Amer 59 mL/min >60 [facility] Comment on above: Non- GFR Calc Platelets bldOrdered By: Radha Hodge on 02-09-2023 Platelets (Bld) [#/Vol] 221 10*3/uL 150-450 [facility] Protein Test strip Ql (U)Ord ered By: Mark Hodge on 02-09-2023 Protein Ql (U) 15 mg/dl Negative [facility] Serum or plasma albumin micah urement (mass/volume)Ordered By: Mark Hodge on 02-09-2023 Albumin [Mass/Vol] 3.7 g/dL 3.2-5.0 [facility] Serum or plasma albumin/glob ulin mass ratioOrdered By: Mark Hodge on 02-09-2023 Albumin/Globulin [Mass ratio] 1.1 {ratio} 0.9-2.4 [facility] Serum or plasma calcium micah urement (mass/volume)Ordered By: Mark Hodge on 02-09-2023 Calcium [Mass/Vol] 9.4 mg/dL 8.5-10.1 [facility] Serum or plasma creatinine m easurement (mass/volume)Ordered By: Mark Hodge on 02-09-2023 Creatinine [Mass/Vol] 0.97 mg/dL 0.55-1.02 [facility] Comment on above: The validity of the calculated GFR & GFRAA in patients over 70 years has not been determined. Clinical correlation is essential. Serum or plasma urea nitroge n measurement (mass/volume)Ordered By: Mark Hodge on 02-09-2023 Urea nitrogen [Mass/Vol] 20 mg/dL 7-18 [facility] Squamous epithelial cells de tection in urine sediment by light microscopyOrdered By: Mark Hodge on 02-09-2023 Epithelial cells.squamous LM Ql (Urine sed) 0-5 SEEN /hpf 5-10 [facility] Thin prep Papanicolaou smear with manual screeningOrdered By: Mark Hodge on 02-09-2023 Thin prep Papanicolaou smear with manual screening 10 U/L 15-37 [facility] Thin prep Papanicolaou smear with manual screening 2 5-15 [facility] Urine blood detectionOrdered By: Mark Hodge on 02-09-2023 RBC Ql (U) 10 /ul Negative [facility] RBC Ql (U) 0 SEEN /hpf 0-5 [facility] Urine clarityOrdered By: Radha Hodge on 02-09-2023 Clarity (U) Clear Clear [facility] Urine color determinationOrd ered By: Mark Hodge on 02-09-2023 Color (U) Yellow Yellow [facility] Urine glucose detectionOrder ed By: Mark Hodge on 02-09-2023 Glucose Ql (U) Normal mg/dl Normal [facility] Urine leukocyte esterase det ection by dipstickOrdered By: Mark Hodge on 02-09-2023 Leukocyte esterase Test strip Ql (U) 100 /ul Negative [facility] Urine pHOrdered By: Mark Hodge on 02-09-2023 pH (U) 6.0 [pH] 5.0 - 8.0 [facility] Urine sediment bacteria coun t by microscopy (number/high power field)Ordered By: Mark Hodge on 02-09-2023 Bacteria LM.HPF (Urine sed) [#/Area] 0 /[HPF] None Seen [facility] Urine specific gravity measu rementOrdered By: Mark Hodge on 02-09-2023 Specific gravity (U) [Rel density] 1.025 1.002-1.030 [facility] Urobilinogen Auto test strip Ql (U)Ordered By: Mark Hodge on 02-09-2023 Urobilinogen Ql (U) 1 mg/dl Normal [facility] Absolute lymphocyte countOrd ered By: Eligio Robledo on 12-27-2022 Lymphocytes Auto (Unsp spec) [#/Vol] 1.57 10*3/uL 0.83-4.51 [facility] Basophil percentageOrdered B y: Eligio Robledo on 12-27-2022 Basophil percentage 0-5 SEEN /hpf 0-5 [facility] Basophils/100 WBC (Bld) 0.2 % 0-1 [facility] Chloride [Moles/Vol] 109 mmol/L 98-107 [facility] Eosinophils/100 WBC (Bld) 4.7 % 0-5 [facility] Glucose [Mass/Vol] 110 mg/dL 74-106 [facility] Comment on above: Fasting Glucose resu lt from 100 to 125 mg/dL suggests IMPAIRED HOMEOSTASIS per A.D.A. criteria. Neutrophils (Bld) [#/Vol] 3.9 10*3/uL 2.0-7.7 [facility] Neutrophils/100 WBC (Bld) 61.4 % 47-70 [facility] Potassium [Moles/Vol] 3.8 mmol/L 3.5-5.1 [facility] Sodium [Moles/Vol] 140 mmol/L 136-145 [facility] WBC (Bld) [#/Vol] 6.4 10*3/uL 4.4-11.0 [facility] Bilirubin Test strip Ql (U)O rdered By: Eligio Robledo on 12-27-2022 Bilirubin Ql (U) 1 mg/dL Negative [facility] Comment on above: COLOR OF URINE MAY A FFECT DIPSTICK RESULTS. Blood erythrocytes count (nu mber/volume)Ordered By: Eligio Robledo on 12-27-2022 RBC (Bld) [#/Vol] 4.87 10*6/uL 4.2-5.4 [facility] Blood hemoglobin measurement (mass/volume)Ordered By: Eligio Robledo on 12-27-2022 Hemoglobin (Bld) [Mass/Vol] 14.9 g/dL 12.0-15.0 [facility] Blood lymphocytes/100 leukoc ytesOrdered By: Eligio Robledo on 12-27-2022 Lymphocytes/100 WBC (Bld) 24.7 % 19-41 [facility] Blood monocytes/100 leukocyt esOrdered By: Eligio Robledo on 12-27-2022 Monocytes/100 WBC (Bld) 8.8 % 0-10 [facility] Blood platelet mean volumeOr dered By: Eligio Robledo on 12-27-2022 Platelet mean volume (Bld) [Entitic vol] 10.1 fL 6.2-12.0 [facility] Determination of erythrocyte mean corpuscular volume (MCV)Ordered By: Eligio Robledo on 12-27-2022 MCV (RBC) [Entitic vol] 93.2 fL 81-99 [facility] Hematocrit Auto (Bld) [Volum e fraction]Ordered By: Eligio Robledo on 12-27-2022 Hematocrit (Bld) [Volume fraction] 45.4 % 37-47 [facility] Ketones Test strip Ql (U)Ord ered By: Eligio Robledo on 12-27-2022 Ketones Ql (U) 5 mg/dl Negative [facility] Laboratory - Chemistry and C hemistry - challengeOrdered By: Eligio Robledo on 12-27-2022 CO2 [Moles/Vol] 28.0 mmol/L 21.0-32.0 [facility] Urea nitrogen/Creatinine [Mass ratio] 22.9 mg/mg 10-20 [facility] Laboratory - Hematology and Cell countsOrdered By: Eilgio Robledo on 12-27-2022 Erythrocyte distribution width (RBC) [Entitic vol] 43.1 fL 35.1-43.9 [facility] Erythrocyte distribution width (RBC) [Ratio] 12.5 % 11.6-14.6 [facility] Immature granulocytes/100 WBC (Bld) 0.200 % 0.0-0.9 [facility] Comment on above: IG% - Immature Granu locytes (promyelocytes, myelocytes and metamyelocytes) > 1% indicates that a LEFT SHIFT is Present. MCH (RBC) [Entitic mass] 30.6 pg 27.0-32.0 [facility] Nucleated RBC/100 WBC (Bld) [Ratio] 0 % 0-5 [facility] MCHC Auto (RBC) [Mass/Vol]Or dered By: Eligio Robledo on 12-27-2022 MCHC (RBC) [Mass/Vol] 32.8 g/dL 32-36 [facility] Mucus LM Ql (Urine sed)Order ed By: Eligio Robledo on 12-27-2022 Mucus Ql (Urine sed) 0 SEEN /hpf [facility] Nitrite Test strip Ql (U)Ord ered By: Eligio Robledo on 12-27-2022 Nitrite Ql (U) Negative Negative [facility] No Panel InformationOrdered By: Eligio Robledo on 12-27-2022 Estimated Creatinine Clearance Calc 43.03 ml/min [facility] Estimated GFR (MDRD) Amer 72 mL/min >60 [facility] Comment on above: GFR Calc Estimated GFR (MDRD) Non-Af Amer 59 mL/min >60 [facility] Comment on above: Non- GFR Calc Platelets bldOrdered By: David Robledo on 12-27-2022 Platelets (Bld) [#/Vol] 237 10*3/uL 150-450 [facility] Protein Test strip Ql (U)Ord ered By: Eligio Robledo on 12-27-2022 Protein Ql (U) Negative Negative [facility] Serum or plasma calcium micah urement (mass/volume)Ordered By: Eligio Robledo on 12-27-2022 Calcium [Mass/Vol] 9.9 mg/dL 8.5-10.1 [facility] Serum or plasma creatinine m easurement (mass/volume)Ordered By: Eligio Robledo on 12-27-2022 Creatinine [Mass/Vol] 0.96 mg/dL 0.55-1.02 [facility] Comment on above: The validity of the calculated GFR & GFRAA in patients over 70 years has not been determined. Clinical correlation is essential. Serum or plasma urea nitroge n measurement (mass/volume)Ordered By: Eligio Robledo on 12-27-2022 Urea nitrogen [Mass/Vol] 22 mg/dL 7-18 [facility] Squamous epithelial cells de tection in urine sediment by light microscopyOrdered By: Eligio Robledo on 12-27-2022 Epithelial cells.squamous LM Ql (Urine sed) 0-5 SEEN /hpf 5-10 [facility] Thin prep Papanicolaou smear with manual screeningOrdered By: Eligio Robledo on 12-27-2022 Thin prep Papanicolaou smear with manual screening 3 5-15 [facility] Urine blood detectionOrdered By: Eligio Robledo on 12-27-2022 RBC Ql (U) 25 /ul Negative [facility] RBC Ql (U) 0-5 SEEN /hpf 0-5 [facility] Urine clarityOrdered By: David Robledo on 12-27-2022 Clarity (U) Clear Clear [facility] Urine color determinationOrd ered By: Eligio Robledo on 12-27-2022 Color (U) Yellow Yellow [facility] Urine glucose detectionOrder ed By: Eligio Robledo on 12-27-2022 Glucose Ql (U) Normal mg/dl Normal [facility] Urine leukocyte esterase det ection by dipstickOrdered By: Eligio Robledo on 12-27-2022 Leukocyte esterase Test strip Ql (U) 500 /ul Negative [facility] Urine pHOrdered By: Eligio dominguez on 12-27-2022 pH (U) 6.0 [pH] 5.0 - 8.0 [facility] Urine sediment bacteria coun t by microscopy (number/high power field)Ordered By: Eligio Robledo on 12-27-2022 Bacteria LM.HPF (Urine sed) [#/Area] 2 /[HPF] None Seen [facility] Urine specific gravity measu rementOrdered By: Eligio Robledo on 12-27-2022 Specific gravity (U) [Rel density] 1.020 1.002-1.030 [facility] Urobilinogen Auto test strip Ql (U)Ordered By: Eligio Robledo on 12-27-2022 Urobilinogen Ql (U) 1 mg/dl Normal [facility] Basophil percentageOrdered B y: Dr. Rodriguez on 06-05-2022 Basophil percentage < 0.9 mg/dL 0.55-1.02 [facility] No Panel InformationOrdered By: Dr. Rodriguez on 06-05-2022 Bedside Estimated GFR (eGFR) > 60.0000 mL/min >60 [facility] US RENAL AND BLADDERon 05-15 US RENAL AND BLADDER EXAMINATION: RETROPERITONEAL ULTRASOUND OF THE KIDNEYS AND URINARY BLADDER 05/15/2021 COMPARISON: 05/30/2018 CT HISTORY: ORDERING SYSTEM PROVIDED HISTORY: Malignant neoplasm of right kidney, except renal pelvis (HCC); TECHNOLOGIST PROVIDED HISTORY: Illness/Other Acuity: Unknown Reason for Exam: pt asx, states hx stones and cysts Cancer History: renal 2009 Surgery, Radiation History: right nephrectomy 2009 Type of Encounter: Subsequent/Follow-up Additional signs and symptoms: n ORDERING SYSTEM PROVIDED DIAGNOSIS CODES: C64.1 Malignant neoplasm of right kidney, except renal pelvis (HCC) FINDINGS: Kidneys: Status post right nephrectomy. The left kidney measures 11.8 cm in length. Kidneys demonstrate normal cortical echogenicity. No evidence of hydronephrosis or intrarenal stones. Parapelvic cysts seen in left kidney. Bladder: Unremarkable appearance of the bladder. Postvoid residual 58 cc. IMPRESSION: Status post right nephrectomy Parapelvic cysts in the left kidney, otherwise, unremarkable Postvoid residual in the bladder of 58 cc Workstation ID: [id number] Dictated by: FANG HWANG on SatMay 15, 2021 3:35:40 PM EST Transcribed by: FANG HWANG on SatMay 15, 2021 3:35:40 PM EST Finalized by: FANG HWANG on SatMay 15, 2021 3:35:40 PM EST [facility] Comment on above: Order Comment: Pt/fx US Retroperitoneal Complete Injury/Trauma or Illness?:Illness/Other How long have you had these symptoms (acute/chronic)?:Unknown Reason for exam?:pt asx, states hx stones and cysts History of cancer?:renal 2010 Surgeries, chemotherapy, or radiation?:right nephrectomy 2009 Type of Exam?:Subsequent/Follow-up Additional signs and symptoms?:n Excision of left upper back edmundo 12-13-2020 Bridgette tellez DO 12/14/2020 8:21 AM Excision of left upper back mass Date/Time: 12/13/2020 3:51 PM Performed by: Bridgette Strickland DO Authorized by: Bridgette Strickland DO Verbal consent: obtained Written consent: obtained Consent given by: patient Relevant documents: Relevent documents present and verified. Medical history, medications, allergies and physical assessment reviewed/completed Test results: test results available and properly labeled Site: site marked by physician or proceduralist who is privileged and credentialed to perform procedure Relevant imaging studies available and labeled: Yes Time out: Immediately prior to procedure a time out was called to verify the correct patient, procedure, equipment, client support associate and site/side marked as required. Physician or proceduralist has discussed critical or nonroutine steps, procedure duration and anticipated blood loss: Yes All team members agree to proceed: Yes Preparation: Patient was prepped and draped in usual sterile fashion Local anesthesia used?: Yes Anesthesia: Local infiltration Local anesthetic: Lidocaine 1% with epinephrine Anesthetic total (ml): 5 Patient sedated: no Patient tolerance: Patient tolerated the procedure well with no immediate complications The skin overlying the left upper back mass was anesthetized. The skin was opened using a #15 scalpel. An irregular shaped lipomatous mass was seen immediately under the skin. This was dissected out with scissors and a hemostat until it was removed completely. The mass was 6x5 cm in size. [facility] XR ABDOMEN /KUB/FLAT PLATE/1 VIEWon 11-28-2020 XR ABDOMEN /KUB/FLAT PLATE/1 VIEW EXAMINATION: ONE SUPINE XRAY VIEW(S) OF THE ABDOMEN 11/28/2020 11:28 am COMPARISON: 12/01/2019 HISTORY: ORDERING SYSTEM PROVIDED HISTORY: Malignant neoplasm of right kidney, except renal pelvis (HCC); TECHNOLOGIST PROVIDED HISTORY: Illness/Other Acuity: Chronic Reason for Exam: pt states having hx of kidney stones; follow up to r/o any stones present Cancer History: renal 2010 Surgery, Radiation History: right nephrectomy 2009 Type of Encounter: Subsequent/Follow-up Additional signs and symptoms: none ORDERING SYSTEM PROVIDED DIAGNOSIS CODES: C64.1 Malignant neoplasm of right kidney, except renal pelvis (HCC) FINDINGS: No abnormally dilated loops of large or small bowel are present to suggest obstruction. No abnormal calcifications are identified overlying the kidneys or expected course of the ureters. The lung bases are clear. Mild degenerative changes of the lower thoracic and lumbar spine are noted. No bony destructive osseous lesions are identified. IMPRESSION: Nonobstructive bowel gas pattern. No nephrolithiasis evident. Workstation ID: [id number] Dictated by: KOKO HERNANDEZ on SatNov 29, 2020 9:30:07 AM EDT Transcribed by: KOKO HERNANDEZ on SatNov 29, 2020 9:30:07 AM EDT Finalized by: KOKO HERNANDEZ on SatNov 29, 2020 9:30:07 AM EDT [facility] Comment on above: Order Comment: Injur y/Trauma or Illness?:Illness/Other How long have you had these symptoms (acute/chronic)?:Chronic Reason for exam?:pt states having hx of kidney stones; follow up to r/o any stones present History of cancer?:renal 2010 Surgeries, chemotherapy, or radiation?:right nephrectomy 2009 Type of Exam?:Subsequent/Follow-up Additional signs and symptoms?:none Basic Metabolic Panelon 11- Anion gap [Moles/Vol] 16 mmol/L 10 - 2 0 mmol/L [facility] Calcium [Mass/Vol] 10.3 mg/dL High 8.4 - 10. 2 mg/dL [facility] Chloride [Moles/Vol] 102 mmol/L 98 - 10 8 mmol/L [facility] Creatinine [Mass/Vol] 0.84 mg/dL 0.60 - 1.20 [facility] GFR/1.73 sq M predicted among non-blacks MDRD (S/P/Bld) [Vol rate/Area] The eGFR should be used for monitoring renal function only and not for medication dosing. [facility] GFR/1.73 sq M.predicted CKD-EPI (S/P/Bld) [Vol rate/Area] 66 >=60 mL/min/1.73 m2 [facility] Glucose [Mass/Vol] 78 mg/dL 65 - 99 mg/dL [facility] HCO3 [Moles/Vol] 29 mmol/L 21 - 32 mmol/L [facility] Interpretation and review of laboratory results Abnormal [facility] Potassium [Moles/Vol] 4.5 mmol/L 3.5 - 5.1 mmol/L [facility] Sodium [Moles/Vol] 142 mmol/L 135 - 145 mmol/L [facility] Urea nitrogen [Mass/Vol] 19 mg/dL 8 - 25 mg/dL [facility] Urea nitrogen/Creatinine [Mass ratio] 22.6 mg/mg High [facility] ECG 12-LEADon 03-01-2020 Atrial Rate [facility] Interpretation and review of laboratory results Normal [facility] P [place] [facility] P-R Interval [facility] Q-T Interval [facility] Q-T Interval (corrected) [facility] QRS Duration [facility] QTC Calculation (Bezet) [facility] R [place] [facility] T [place] [facility] Ventricular Rate [facility] th XR ABDOMEN 1 VIEWon 10-04-19 19 Gallstones. Phleboli ths are seen within the pelvis. No convincing evidence of a renal stone is identified. CARYL/candice Workstation ID: [id number] [facility] EXAMINATION: ONE SUP INE XRAY VIEW(S) OF THE ABDOMEN 10/03/2018 2:38 pm COMPARISON: CT from 05/30/2018 and plain film from 06/21/2017. HISTORY: ORDERING SYSTEM PROVIDED HISTORY: Calculus of kidney; TECHNOLOGIST PROVIDED HISTORY: Illness/Other Acuity: Acute Reason for Exam: Cancer History: renal 2009 Surgery, Radiation History: right nephrectomy 2009 Type of Encounter: Initial Additional signs and symptoms: ORDERING SYSTEM PROVIDED DIAGNOSIS CODES: N20.0 Calculus of kidney FINDINGS: Calcified phleboliths are present within the pelvis. No convincing evidence of a renal stone is identified. Surgical clips are in place from a previous right nephrectomy. Multiple stones are present within the gallbladder. Bowel gas pattern appears unremarkable. [facility] Interface, Rad In [employer] - 10/03/2018 3:34 PM EDT EXAMINATION: ONE SUPINE XRAY VIEW(S) OF THE ABDOMEN 10/03/2018 2:38 pm COMPARISON: CT from 05/30/2018 and plain film from 06/21/2017. HISTORY: ORDERING SYSTEM PROVIDED HISTORY: Calculus of kidney; TECHNOLOGIST PROVIDED HISTORY: Illness/Other Acuity: Acute Reason for Exam: Cancer History: renal 2010 Surgery, Radiation History: right nephrectomy 2009 Type of Encounter: Initial Additional signs and symptoms: ORDERING SYSTEM PROVIDED DIAGNOSIS CODES: N20.0 Calculus of kidney FINDINGS: Calcified phleboliths are present within the pelvis. No convincing evidence of a renal stone is identified. Surgical clips are in place from a previous right nephrectomy. Multiple stones are present within the gallbladder. Bowel gas pattern appears unremarkable. IMPRESSION: Gallstones. Phleboliths are seen within the pelvis. No convincing evidence of a renal stone is identified. [employer] Workstation ID: [id number] [facility] CBC WITH AUTO DIFFERENTIALon 05-30-2018 Basophils #/vol (Bld) 0.03 10*3/uL [facility] Basophils/100 WBC (Bld) 0.4 % [facility] Eosinophils #/vol (Bld) 0.00 10*3/uL [facility] Eosinophils/100 WBC (Bld) 0.0 % [facility] Erythrocyte distribution width Entitic volume (RBC) 12.8 % 11.6 - 14.8 % [facility] Hematocrit Volume Fraction (Bld) 52.1 % High 36 - 46 % [facility] Hemoglobin mass conc (Bld) 17.7 g/dL High 12 - 16 g/dL [facility] Immature granulocytes #/vol (Bld) 0.01 10*3/uL [facility] Immature granulocytes/100 WBC (Bld) 0.10 % [facility] Comment on above: The IG parameter is the percentage of metamyelocytes, myelocytes, and promyelocytes. Interpretation and review of laboratory results Abnormal [facility] Lymphocytes #/vol (Bld) 0.96 10*3/uL [facility] Lymphocytes/100 WBC (Bld) 11.3 % [facility] MCH Entitic mass (RBC) 30.9 pg 26 - 34 pg [facility] MCHC mass conc (RBC) 34.0 g/dL 31 - 37 g/dL [facility] MCV Entitic volume (RBC) 90.9 fL 80 - 100 fL [facility] Monocytes #/vol (Bld) 0.93 10*3/uL High [facility] Monocytes/100 WBC (Bld) 10.9 % [facility] Neutrophils #/vol (Bld) 6.58 10*3/uL [facility] Neutrophils/100 WBC (Bld) 77.3 % [facility] Nucleated RBC #/vol (Bld) 0.00 10*3/uL [facility] Nucleated RBC/100 WBC Ratio (Bld) 0.0 % [facility] Platelet mean volume Entitic volume (Bld) 10.8 fL 9 - 15.5 fL [facility] Platelets #/vol (Bld) 218 10*3/uL [facility] RBC #/vol (Bld) 5.73 10*6/uL High [facility] lth WBC #/vol (Bld) 8.51 10*3/uL [facility] CT Abdomen Pelvis Without Co ntraston 05-30-2018 Interface, Rad In [facility] - 05/30/2018 11:53 PM EST EXAMINATION: CT ABDOMEN PELVIS WITHOUT CONTRAST HISTORY: ORDERING SYSTEM PROVIDED HISTORY: diarrhea, abdominal pain, TECHNOLOGIST PROVIDED HISTORY: Reason for exam: diarrhea, abdominal pain Illness/Other Encounter Type: Initial Additional signs and symptoms: na ORDERING SYSTEM PROVIDED DIAGNOSIS CODES: COMPARISON: CT abdomen/pelvis from September 25, 2016. TECHNIQUE: CT examination of the abdomen and pelvis without IV contrast. Coronal and sagittal reformations were performed. Dose reduction techniques were achieved by using automated exposure control and/or adjustment of mA and/or kV according to patient size and/or use of iterative reconstruction technique. FINDINGS: No focal consolidation of the lung bases. Mild degenerative changes of the spine are noted. There is mild motion artifact present diffusely throughout the abdomen. The unenhanced liver, spleen, pancreas and bilateral adrenal glands are unremarkable. Cholelithiasis is noted. There are likely small left parapelvic renal cysts. No evidence of hydronephrosis is noted at the left kidney. No obstructing radiopaque calculus is identified. The right kidney is absent. There is atherosclerotic calcification of the aorta. No abdominal/pelvic lymphadenopathy is present. No bowel obstruction. There is a mild fluid-filled appearance of the small bowel and colon without evidence of dilated loops. The appendix is unremarkable. There is diverticulosis of the sigmoid colon. The CT appearance of the bladder is relatively collapsed but otherwise unremarkable. The patient is status post hysterectomy. There is a stable 1.7 cm left adnexal cystic structure on series 2, image 83. No pelvic free fluid is present. IMPRESSION: No bowel obstruction. Unremarkable appendix. Mild fluid-filled appearance of the small bowel and colon without evidence of dilated loops as can be seen with a diarrheal illness. A mild enterocolitis cannot be entirely excluded. Cholelithiasis. Probable small left parapelvic renal cysts without evidence of discrete hydronephrosis. The right kidney is absent. Status post hysterectomy. Stable 1.7 cm left adnexal cystic structure. [employer] Workstation ID: [id number] [facility] EXAMINATION: CT ABDO MEN PELVIS WITHOUT CONTRAST HISTORY: ORDERING SYSTEM PROVIDED HISTORY: diarrhea, abdominal pain, TECHNOLOGIST PROVIDED HISTORY: Reason for exam: diarrhea, abdominal pain Illness/Other Encounter Type: Initial Additional signs and symptoms: na ORDERING SYSTEM PROVIDED DIAGNOSIS CODES: COMPARISON: CT abdomen/pelvis from September 25, 2016. TECHNIQUE: CT examination of the abdomen and pelvis without IV contrast. Coronal and sagittal reformations were performed. Dose reduction techniques were achieved by using automated exposure control and/or adjustment of mA and/or kV according to patient size and/or use of iterative reconstruction technique. FINDINGS: No focal consolidation of the lung bases. Mild degenerative changes of the spine are noted. There is mild motion artifact present diffusely throughout the abdomen. The unenhanced liver, spleen, pancreas and bilateral adrenal glands are unremarkable. Cholelithiasis is noted. There are likely small left parapelvic renal cysts. No evidence of hydronephrosis is noted at the left kidney. No obstructing radiopaque calculus is identified. The right kidney is absent. There is atherosclerotic calcification of the aorta. No abdominal/pelvic lymphadenopathy is present. No bowel obstruction. There is a mild fluid-filled appearance of the small bowel and colon without evidence of dilated loops. The appendix is unremarkable. There is diverticulosis of the sigmoid colon. The CT appearance of the bladder is relatively collapsed but otherwise unremarkable. The patient is status post hysterectomy. There is a stable 1.7 cm left adnexal cystic structure on series 2, image 83. No pelvic free fluid is present. [facility] No bowel obstruction . Unremarkable appendix. Mild fluid-filled appearance of the small bowel and colon without evidence of dilated loops as can be seen with a diarrheal illness. A mild enterocolitis cannot be entirely excluded. Cholelithiasis. Probable small left parapelvic renal cysts without evidence of discrete hydronephrosis. The right kidney is absent. Status post hysterectomy. Stable 1.7 cm left adnexal cystic structure. [employer] Workstation ID: [id number] [facility] Comprehensive Metabolic Pane kera 05-30-2018 Albumin mass conc 4.8 g/dL 3.2 - 5.2 g/dL [facility] ALP enzyme act/vol 90 U/L 40 - 150 U/L [facility] ALT enzyme act/vol 24 U/L 0 - 40 U/L [facility] alth Anion gap molar conc 20 mmol/L 10 - 20 mmol/L [facility] AST enzyme act/vol 36 U/L 0 - 45 U/L [facility] alth Bilirubin mass conc 0.4 mg/dL 0 - 1.3 mg/dL [facility] Calcium mass conc 10.1 mg/dL 8.4 - 10.2 mg/dL [facility] Chloride molar conc 95 mmol/L Low 98 - 108 mmol/L [facility] Creatinine mass conc 1.17 mg/dL 0.6 - 1 .2 mg/dL [facility] GFR/1.73 sq M predicted among non-blacks MDRD vol rate/area (S/P/Bld) The eGFR should be used for monitoring renal function only and not for medication dosing. [facility] GFR/1.73 sq M.predicted CKD-EPI vol rate/area (S/P/Bld) 45 Low >=60 mL/min/1.73 m2 [facility] Glucose mass conc 107 mg/dL High 65 - 99 mg/dL [facility] HCO3 molar conc 20 mmol/L Low 21 - 32 mmol/L [facility] Interpretation and review of laboratory results Abnormal [facility] Potassium molar conc 3.9 mmol/L 3.5 - 5 .1 mmol/L [facility] Protein mass conc 7.9 g/dL 6 - 8 g/dL [facility] lth Sodium molar conc 131 mmol/L Low 135 - 145 mmol/L [facility] Urea nitrogen mass conc 23 mg/dL 8 - 25 mg/dL [facility] Urea nitrogen/Creatinine mass ratio 19.7 mg/mg [facility] ECG 12-LEADon 05-30-2018 Emery Bowles 05/30/2018 6:52 PM EKG 12-lead Date/Time: 05/30/2018 6:51 PM Performed by: Mike Villanueva DO Authorized by: Angelica Thomas DO BPM: 126 Comments: Sinus tachycardia. Ventricular rate 126, ID interval 160, QRS duration 76, QT/QTc 302/437. No obvious ischemic changes. Nonspecific EKG. [facility] Lactic Acid, Plasmaon 2018 Interpretation and review of laboratory results Normal [facility] Lactate molar conc 2.0 mmol/L 0.6 - 2 mmol/L [facility] Lipaseon 05-30-2018 Interpretation and review of laboratory results Normal [facility] Lipase enzyme act/vol 35 U/L 15 - 65 U/L [facility] Otheron 05-30-2018 Extra Tube Hold for add-ons. [facility] Comment on above: Auto resulted. URINALYSISon 05-30-2018 Bacteria Auto Ql (U) Few Abnormal None Se en /hpf [facility] Bilirubin Ql (U) Negative Negative [facility] th Clarity Refractometry automated Nom (U) Cloudy Abnormal Clear [facility] Color Nom (U) Heidi Abnormal Colorless, Yellow [facility] Epithelial cells.renal Computer assisted #/area (U) <1 High [facility] Epithelial cells.squamous Auto #/area (Urine sed) 3 [facility] Glucose Automated test strip mass conc (U) Negative Negative mg/dL [facility] Hemoglobin Automated test strip Ql (U) Small Abnormal Negative [facility] Interpretation and review of laboratory results Abnormal [facility] Ketones mass conc (U) 20 Abnormal Negati ve mg/dL [facility] Leukocyte esterase Automated test strip Ql (U) Small Abnormal Negative [facility] Mucus Auto #/area (Urine sed) Rare None Seen, Rare /lpf [facility] Nitrite Automated test strip Ql (U) Negative Negative [facility] pH (U) 6.0 [pH] [facility] Protein mass conc (U) 100 Abnormal Negati ve mg/dL [facility] RBC Auto #/area (Urine sed) 1 [facility] Specific gravity Relative Density (U) 1.028 High [facility] Urobilinogen mass conc (U) >=4.0 Abnormal <2.0 mg/dL [facility] WBC Auto #/area (Urine sed) 1 [facility] Microscopic examinat ion is performed on all urinalysis samples and only positive findings are reported. The test for blood on the chemical analytic portion of urinalysis may also be positive due to hemoglobinuria and myoglobinuria and if red blood cells are present they are quantified by microscopic examination. [facility] XR Bone Density DEXA Axialon 09-26-2017 XR Bone Density DEXA Axial Osteopenia by WHO criteria. Workstation ID: [id number] Invalid Interpretation Code Ratio [place] XR Bone Density DEXA Axial EXAMINATION: BONE DENSITOMETRY 09/26/2017 COMPARISON: None. HISTORY: Osteopenia. TECHNIQUE: Bone mineral density measurements were obtained of the lumbar spine and left hip on a Hologic machine. FINDINGS: LUMBAR SPINE: The bone mineral density in the lumbar spine including the L1-L4 levels is measured at 0.810 g/cm2, which corresponds to a T-score of -2.2 and a Z-score of 0.3. This is within the osteopenia range by WHO criteria. HIP: The bone mineral density in the total hip is measured at 0.712 g/cm2 corresponding to a T-score of -1.9 and a Z-score of 0.0. This is within the osteopenia range by WHO criteria. The bone mineral density of the femoral neck is measured at 0.616 g/cm2 corresponding to a T-score of -2.1 and a Z-score of 0.1. This is within the osteopenia range by WHO criteria. Invalid Interpretation Code SparCode [facility] XR Bone Density DEXA Axial Interface, Rad In Joce [place]q - 09/26/2017 3:28 PM EDT EXAMINATION: BONE DENSITOMETRY 09/26/2017 COMPARISON: None. HISTORY: Osteopenia. TECHNIQUE: Bone mineral density measurements were obtained of the lumbar spine and left hip on a Hologic machine. FINDINGS: LUMBAR SPINE: The bone mineral density in the lumbar spine including the L1-L4 levels is measured at 0.810 g/cm2, which corresponds to a T-score of -2.2 and a Z-score of 0.3. This is within the osteopenia range by WHO criteria. HIP: The bone mineral density in the total hip is measured at 0.712 g/cm2 corresponding to a T-score of -1.9 and a Z-score of 0.0. This is within the osteopenia range by WHO criteria. The bone mineral density of the femoral neck is measured at 0.616 g/cm2 corresponding to a T-score of -2.1 and a Z-score of 0.1. This is within the osteopenia range by WHO criteria. IMPRESSION: Osteopenia by WHO criteria. Workstation ID: [id number] Invalid Interpretation Code [employer] [facility] XR Abdomen APon 06-21-2017 XR Abdomen AP No evidence of left- sided urinary tract calculus appreciated. The left ureteral stent noted on prior KUB has been removed. [facility] Workstation ID: [id number] Invalid Interpretation Code [employer] [facility] XR Abdomen AP EXAMINATION: SUPINE VIEW(S) OF THE ABDOMEN 06/21/2017 2:49 pm COMPARISON: Ultrasound dated 06/19/2017 and KUB dated 10/09/2016. HISTORY: ORDERING SYSTEM PROVIDED HISTORY: Kidney stone; TECHNOLOGIST PROVIDED HISTORY: Reason for Exam: per patient, follow-up on left kidney stone from 2016 Illness/Other Acuity: Chronic Cancer History: renal 2010 Surgery, Radiation History: right nephrectomy 2009 Type of Encounter: Subsequent/Follow-up Additional signs and symptoms: none-given ORDERING SYSTEM PROVIDED DIAGNOSIS CODES: N20.0 Kidney stone FINDINGS: Surgical clip is seen in the right side of the abdomen. The patient has undergone remote right nephrectomy. No abnormal calcifications seen overlying the expected location of the left kidney or the course of the left ureter. Some vascular calcifications are seen in the pelvis. No acute osseous abnormality is seen. Bones are osteopenic. No hepatosplenomegaly is seen. The lung bases are clear. Invalid Interpretation Code [employer] [facility] XR Abdomen AP Interface, Rad In Fu ji Speechq - 06/21/2017 4:27 PM EST EXAMINATION: SUPINE VIEW(S) OF THE ABDOMEN 06/21/2017 2:49 pm COMPARISON: Ultrasound dated 06/19/2017 and KUB dated 10/09/2016. HISTORY: ORDERING SYSTEM PROVIDED HISTORY: Kidney stone; TECHNOLOGIST PROVIDED HISTORY: Reason for Exam: per patient, follow-up on left kidney stone from 2016 Illness/Other Acuity: Chronic Cancer History: renal 2010 Surgery, Radiation History: right nephrectomy 2009 Type of Encounter: Subsequent/Follow-up Additional signs and symptoms: none-given ORDERING SYSTEM PROVIDED DIAGNOSIS CODES: N20.0 Kidney stone FINDINGS: Surgical clip is seen in the right side of the abdomen. The patient has undergone remote right nephrectomy. No abnormal calcifications seen overlying the expected location of the left kidney or the course of the left ureter. Some vascular calcifications are seen in the pelvis. No acute osseous abnormality is seen. Bones are osteopenic. No hepatosplenomegaly is seen. The lung bases are clear. IMPRESSION: No evidence of left-sided urinary tract calculus appreciated. The left ureteral stent noted on prior KUB has been removed. [employer] Workstation ID: [id number] Invalid Interpretation Code SparCode [facility] Retroperitoneal Complete Renal and Bladderon 06-19-2017 US Retroperitoneal Complete Renal and Bladder Status post right nephrectomy. No evidence of left renal mass. Suspected nonobstructive left renal calculus. Unremarkable bladder ultrasound. [facility]/lab Workstation ID: [id number] Invalid Interpretation Code [employer] [facility] Retroperitoneal Complete Renal and Bladder EXAMINATION: RETROPERITONEAL ULTRASOUND OF THE KIDNEYS AND URINARY BLADDER 06/19/2017 COMPARISON: 05/30/2016. HISTORY: ORDERING SYSTEM PROVIDED HISTORY: Malignant neoplasm of left kidney, except renal pelvis (HCC); TECHNOLOGIST PROVIDED HISTORY: Reason for Exam: History of right renal cell carcinoma Illness/Other Acuity: Chronic Cancer History: renal Surgery, Radiation History: right nephrectomy Type of Encounter: Initial Additional signs and symptoms: left renal stones ORDERING SYSTEM PROVIDED DIAGNOSIS CODES: C64.2 Malignant neoplasm of left kidney, except renal pelvis (HCC) FINDINGS: KIDNEYS: The right kidney is surgically absent. The left kidney measures 10.9 cm in length with renal cortical thickness of 11 mm. Renal parenchymal echogenicity is maintained and there is no hydronephrosis. No cystic or solid left renal mass. Small echogenic area in the [id number]-jg-fmwpo pole suggesting a nonobstructive calculus. BLADDER: Urinary bladder volume measures 254 mL. No intraluminal mass or significant wall thickening. No postvoid residual. Invalid Interpretation Code [employer]Code [facility] Retroperitoneal Complete Renal and Bladder Interface, Rad In Asha Speechq - 06/19/2017 6:03 PM EST EXAMINATION: RETROPERITONEAL ULTRASOUND OF THE KIDNEYS AND URINARY BLADDER 06/19/2017 COMPARISON: 05/30/2016. HISTORY: ORDERING SYSTEM PROVIDED HISTORY: Malignant neoplasm of left kidney, except renal pelvis (HCC); TECHNOLOGIST PROVIDED HISTORY: Reason for Exam: History of right renal cell carcinoma Illness/Other Acuity: Chronic Cancer History: renal Surgery, Radiation History: right nephrectomy Type of Encounter: Initial Additional signs and symptoms: left renal stones ORDERING SYSTEM PROVIDED DIAGNOSIS CODES: C64.2 Malignant neoplasm of left kidney, except renal pelvis (HCC) FINDINGS: KIDNEYS: The right kidney is surgically absent. The left kidney measures 10.9 cm in length with renal cortical thickness of 11 mm. Renal parenchymal echogenicity is maintained and there is no hydronephrosis. No cystic or solid left renal mass. Small echogenic area in the jox-lk-oxkyo pole suggesting a nonobstructive calculus. BLADDER: Urinary bladder volume measures 254 mL. No intraluminal mass or significant wall thickening. No postvoid residual. IMPRESSION: Status post right nephrectomy. No evidence of left renal mass. Suspected nonobstructive left renal calculus. Unremarkable bladder ultrasound. [facility] Workstation ID: [id number] Invalid Interpretation Code SparCode [facility] XR FLUOROSCOPY GREATER THAN ONE HOURon 11-07-2016 XR FLUOROSCOPY GREATER THAN ONE HOUR This is an auto finalized result. Please refer to patient chart for further information. information. information. [facility] Comment on above: Order Comment: Reaso n for exam?:orInjury/Trauma or Illness?:Illness/OtherHow long have you had these symptoms (acute/chronic)?:UnknownType of Exam?:UnknownAdditional signs and symptoms?:?Fluoro time in minutes:.89 Vital Signs Date Time Vital Sign Value Performing Clinician Kashif paulino 12-07-2024 13:47-0400 Body height 165.1 cm Solis Lambert MD Work Phone: [facility] 12-07-2024 13:47-0400 Body mass index (BMI) [Ratio] 24.2 kg/m2 Solis Lambert MD Work Phone: [facility] 12-07-2024 13:47-0400 Body weight 65.95 kg Solis Lambert MD Work Phone: [facility] 12-07-2024 13:47-0400 Diastolic blood pressure 60 mm[Hg] Solis Lambert MD Work Phone: [facility] 12-07-2024 13:47-0400 Heart rate 96 /min Solis Lambert MD Work Phone: [facility] 12-07-2024 13:47-0400 SaO2% (BldA) [Mass fraction] 98 % Solis Lambert MD Work Phone: [facility] 12-07-2024 13:47-0400 Systolic blood pressure 96 mm[Hg] Solis Lambert MD Work Phone: [facility] 11-25-2024 09:59-0400 Body mass index (BMI) [Ratio] 22.88 kg/m2 Spencer Velarde DO Work Phone: [facility] 11-25-2024 09:59-0400 Body temperature 97.59 [degF] Spencer Kci DO Work Phone: [facility] 11-25-2024 09:59-0400 Body weight 63.96 kg Spencer Kci DO Work Phone: [facility] 11-25-2024 09:59-0400 Diastolic blood pressure 66 mm[Hg] Spencer Kci DO Work Phone: [facility] 11-25-2024 09:59-0400 Heart rate 101 /min Spencer Kci DO Work Phone: [facility] 11-25-2024 09:59-0400 SaO2% (BldA) [Mass fraction] 92 % Spencer Kci DO Work Phone: [facility] 11-25-2024 09:59-0400 Systolic blood pressure 103 mm[Hg] Spencer Velarde DO Work Phone: [facility] 11-05-2024 12:22-0400 Diastolic blood pressure 81 mm[Hg] Latrice Reagan MD Work Phone: [facility] 11-05-2024 12:22-0400 Heart rate 98 /min Latrice Reagan MD Work Phone: [facility] 11-05-2024 12:22-0400 Respiratory rate 18 /min Latrice Reagan MD Work Phone: [facility] 11-05-2024 12:22-0400 SaO2% (BldA) [Mass fraction] 99 % Latrice Reagan MD Work Phone: [facility] 11-05-2024 12:22-0400 Systolic blood pressure 125 mm[Hg] Latrice Reagan MD Work Phone: [facility] 11-05-2024 11:59-0400 Body temperature 97.11 [degF] Latrice Reagan MD Work Phone: [facility] 09-17-2024 11:17-0400 Body mass index (BMI) [Ratio] 24.58 kg/m2 Spencer Kci DO Work Phone: [facility] 09-17-2024 11:17-0400 Body temperature 98.1 [degF] Spencer Kci DO Work Phone: [facility] 09-17-2024 11:17-0400 Body weight 68.72 kg Spencer Kci DO Work Phone: [facility] 09-17-2024 11:17-0400 Diastolic blood pressure 69 mm[Hg] Spencer Yaminii DO Work Phone: [facility] 09-17-2024 11:17-0400 Heart rate 97 /min Spencer Kci DO Work Phone: [facility] 09-17-2024 11:17-0400 SaO2% (BldA) [Mass fraction] 94 % Spencer Yaminii DO Work Phone: [facility] 09-17-2024 11:17-0400 Systolic blood pressure 107 mm[Hg] Spencer Yaminii DO Work Phone: [facility] 08-05-2024 09:52-0400 Body mass index (BMI) [Ratio] 25.02 kg/m2 Zandra Zhao MANAGER OF DRILLING.STACK CLERK Work Phone: [facility] 08-05-2024 09:52-0400 Body temperature 98.29 [degF] Zandra Podlogvinnie MANAGER OF DRILLING.STACK CLERK Work Phone: [facility] 08-05-2024 09:52-0400 Body weight 69.94 kg Zandra Zhao MANAGER OF DRILLING.STACK CLERK Work Phone: [facility] 08-05-2024 09:52-0400 Diastolic blood pressure 68 mm[Hg] Zandra Valverdelogvinnie MANAGER OF DRILLING.STACK CLERK Work Phone: [facility] 08-05-2024 09:52-0400 Heart rate 104 /min Zandra Podlogar MANAGER OF DRILLING.STACK CLERK Work Phone: [facility] 08-05-2024 09:52-0400 Respiratory rate 18 /min Zandra Podlogar MANAGER OF DRILLING.STACK CLERK Work Phone: [facility] 08-05-2024 09:52-0400 SaO2% (BldA) [Mass fraction] 96 % Zandra Podlogar MANAGER OF DRILLING.STACK CLERK Work Phone: [facility] 08-05-2024 09:52-0400 Systolic blood pressure 134 mm[Hg] Zandra Podlogar MANAGER OF DRILLING.STACK CLERK Work Phone: [facility] 08-05-2024 09:33-0400 Body mass index (BMI) [Ratio] 25.25 kg/m2 Amelia Escalona MANAGER OF DRILLING.STACK CLERK Work Phone: [facility] 08-05-2024 09:33-0400 Body temperature 98.4 [degF] Amelia Escalona MANAGER OF DRILLING.STACK CLERK Work Phone: [facility] 08-05-2024 09:33-0400 Body weight 70.6 kg Amelia Escalona MANAGER OF DRILLING.STACK CLERK Work Phone: [facility] 08-05-2024 09:33-0400 Diastolic blood pressure 82 mm[Hg] Amelia Escalona MANAGER OF DRILLING.STACK CLERK Work Phone: [facility] 08-05-2024 09:33-0400 Heart rate 113 /min Amelia Escalona MANAGER OF DRILLING.STACK CLERK Work Phone: [facility] 08-05-2024 09:33-0400 Respiratory rate 18 /min Amelia Escalona MANAGER OF DRILLING.STACK CLERK Work Phone: [facility] 08-05-2024 09:33-0400 SaO2% (BldA) [Mass fraction] 97 % Amelia Escalona MANAGER OF DRILLING.STACK CLERK Work Phone: [facility] 08-05-2024 09:33-0400 Systolic blood pressure 146 mm[Hg] Amelia Iqra AGUIRRE Work Phone: [facility] 06-08-2024 13:43-0500 Body mass index (BMI) [Ratio] 26.22 kg/m2 Solis Lambert MD Work Phone: [facility] 06-08-2024 13:43-0500 Body weight 73.3 kg Solis Lambert MD Work Phone: [facility] 06-08-2024 13:43-0500 Diastolic blood pressure 60 mm[Hg] Solis Lambert MD Work Phone: [facility] 06-08-2024 13:43-0500 Heart rate 98 /min Solis Lambert MD Work Phone: [facility] 06-08-2024 13:43-0500 Respiratory rate 16 /min Solis Lambert MD Work Phone: [facility] 06-08-2024 13:43-0500 SaO2% (BldA) [Mass fraction] 98 % Solis Lambert MD Work Phone: [facility] 06-08-2024 13:43-0500 Systolic blood pressure 108 mm[Hg] Solis Lambert MD Work Phone: [facility] 06-03-2024 14:36-0500 Body mass index (BMI) [Ratio] 26.37 kg/m2 Spencer Masci DO Work Phone: [facility] 06-03-2024 14:36-0500 Body temperature 97.39 [degF] Spencer Masci DO Work Phone: [facility] 06-03-2024 14:36-0500 Body weight 73.71 kg Spencer Masci DO Work Phone: [facility] 06-03-2024 14:36-0500 Diastolic blood pressure 70 mm[Hg] Spencer Masci DO Work Phone: [facility] 06-03-2024 14:36-0500 Heart rate 107 /min Spencer Masci DO Work Phone: [facility] 06-03-2024 14:36-0500 SaO2% (BldA) [Mass fraction] 96 % Spencer Velarde DO Work Phone: [facility] 06-03-2024 14:36-0500 Systolic blood pressure 128 mm[Hg] Spencer Velarde DO Work Phone: [facility] 05-05-2024 14:46-0500 Body temperature 97.3 [degF] Mateo Joe MD Work Phone: [facility] 05-05-2024 14:46-0500 Diastolic blood pressure 84 mm[Hg] Mateo Joe MD Work Phone: [facility] 05-05-2024 14:46-0500 Heart rate 101 /min Mateo Joe MD Work Phone: [facility] 05-05-2024 14:46-0500 SaO2% (BldA) [Mass fraction] 96 % Mateo Joe MD Work Phone: [facility] 05-05-2024 14:46-0500 Systolic blood pressure 141 mm[Hg] Mateo Joe MD Work Phone: [facility] 04-21-2024 14:57-0500 Body temperature 97.5 [degF] Aguilar Nava MD Work Phone: [facility] 04-21-2024 14:57-0500 Diastolic blood pressure 80 mm[Hg] Aguilar Nava MD Work Phone: [facility] 04-21-2024 14:57-0500 Heart rate 76 /min Aguilar Nava MD Work Phone: [facility] 04-21-2024 14:57-0500 SaO2% (BldA) [Mass fraction] 97 % Aguilar Nava MD Work Phone: [facility] 04-21-2024 14:57-0500 Systolic blood pressure 132 mm[Hg] Aguilar Nava MD Work Phone: [facility] 03-23-2024 10:29-0500 Body mass index (BMI) [Ratio] 25.31 kg/m2 Aguilar Nava MD Work Phone: [facility] 03-23-2024 10:29-0500 Body temperature 97.2 [degF] Aguilar Nava MD Work Phone: [facility] 03-23-2024 10:29-0500 Body weight 70.76 kg Aguilar Nava MD Work Phone: [facility] 03-23-2024 10:29-0500 Diastolic blood pressure 75 mm[Hg] Aguilar Nava MD Work Phone: [facility] 03-23-2024 10:29-0500 Heart rate 84 /min Aguilar Nava MD Work Phone: [facility] 03-23-2024 10:29-0500 Respiratory rate 17 /min Aguilar Nava MD Work Phone: [facility] 03-23-2024 10:29-0500 SaO2% (BldA) [Mass fraction] 95 % Aguilar Nava MD Work Phone: [facility] 03-23-2024 10:29-0500 Systolic blood pressure 131 mm[Hg] Aguilar Nava MD Work Phone: [facility] 03-19-2024 11:58-0500 Body mass index (BMI) [Ratio] 25.15 kg/m2 Spencer Velarde DO Work Phone: [facility] 03-19-2024 11:58-0500 Body temperature 97.59 [degF] Spencer Kci DO Work Phone: [facility] 03-19-2024 11:58-0500 Body weight 70.31 kg Spencer Kci DO Work Phone: [facility] 03-19-2024 11:58-0500 Diastolic blood pressure 56 mm[Hg] Spencer Kci DO Work Phone: [facility] 03-19-2024 11:58-0500 Heart rate 129 /min Spencer Kci DO Work Phone: [facility] 03-19-2024 11:58-0500 SaO2% (BldA) [Mass fraction] 96 % Spencer Velarde DO Work Phone: [facility] 03-19-2024 11:58-0500 Systolic blood pressure 103 mm[Hg] Spencer Velarde DO Work Phone: [facility] 03-10-2024 15:16-0500 Heart rate 96 /min Solis Lambert MD Work Phone: [facility] 03-10-2024 14:42-0500 Body height 167.2 cm Solis Lambert MD Work Phone: [facility] 03-10-2024 14:42-0500 Body mass index (BMI) [Ratio] 25.96 kg/m2 Solis Lambert MD Work Phone: [facility] 03-10-2024 14:42-0500 Body weight 72.58 kg Solis Lambert MD Work Phone: [facility] 03-10-2024 14:42-0500 Diastolic blood pressure 64 mm[Hg] Solis Lambert MD Work Phone: [facility] 03-10-2024 14:42-0500 Respiratory rate 18 /min Solis Lambert MD Work Phone: [facility] 03-10-2024 14:42-0500 SaO2% (BldA) [Mass fraction] 97 % Solis Lambert MD Work Phone: [facility] 03-10-2024 14:42-0500 Systolic blood pressure 130 mm[Hg] Solis Lambert MD Work Phone: [facility] 03-02-2024 12:46-0500 Body mass index (BMI) [Ratio] 25.31 kg/m2 Philippe Pena MD Work Phone: [facility] 03-02-2024 12:46-0500 Body temperature 97.3 [degF] Philippe Pena MD Work Phone: [facility] 03-02-2024 12:46-0500 Body weight 70.6 kg Philippe Pena MD Work Phone: [facility] [facility] 03-02-2024 12:46-0500 Diastolic blood pressure 59 mm[Hg] Philippe Pena MD Work Phone: [facility] 03-02-2024 12:46-0500 Heart rate 93 /min Philippe Pena MD Work Phone: [facility] 03-02-2024 12:46-0500 Respiratory rate 16 /min Philippe Pena MD Work Phone: [facility] 03-02-2024 12:46-0500 SaO2% (BldA) [Mass fraction] 95 % Philippe Pena MD Work Phone: [facility] 03-02-2024 12:46-0500 Systolic blood pressure 129 mm[Hg] Philippe Pena MD Work Phone: [facility] 02-14-2024 07:50-0400 Body height 167 cm Spencer Kci DO Work Phone: [facility] 02-14-2024 07:50-0400 Body mass index (BMI) [Ratio] 25.7 kg/m2 Spencer Yaminii DO Work Phone: [facility] 02-14-2024 07:50-0400 Body temperature 97.39 [degF] Spencer Yaminii DO Work Phone: [facility] 02-14-2024 07:50-0400 Body weight 71.67 kg Spencer Yaminii DO Work Phone: [facility] 02-14-2024 07:50-0400 Diastolic blood pressure 62 mm[Hg] Spencer Yaminii DO Work Phone: [facility] 02-14-2024 07:50-0400 Heart rate 105 /min Spencer Yaminii DO Work Phone: [facility] 02-14-2024 07:50-0400 SaO2% (BldA) [Mass fraction] 95 % Spencer Yaminii DO Work Phone: [facility] 02-14-2024 07:50-0400 Systolic blood pressure 118 mm[Hg] Spencer Velarde DO Work Phone: [facility] 12-07-2023 12:02-0400 Body temperature 98.01 [degF] Ligia Praisler-Wood MANAGER OF DRILLING.STACK CLERK Work Phone: [facility] 12-07-2023 12:02-0400 Body weight 73.8 kg Ligia Praisler-Wood MANAGER OF DRILLING.STACK CLERK Work Phone: [facility] 12-07-2023 12:02-0400 Diastolic blood pressure 70 mm[Hg] Ligia Praisler-Wood MANAGER OF DRILLING.STACK CLERK Work Phone: [facility] 12-07-2023 12:02-0400 Heart rate 112 /min Ligia Praisler-Wood MANAGER OF DRILLING.STACK CLERK Work Phone: [facility] 12-07-2023 12:02-0400 Respiratory rate 22 /min Ligia Praisler-Wood MANAGER OF DRILLING.STACK CLERK Work Phone: [facility] 12-07-2023 12:02-0400 SaO2% (BldA) [Mass fraction] 95 % Ligia Praisler-Wood MANAGER OF DRILLING.STACK CLERK Work Phone: [facility] 12-07-2023 12:02-0400 Systolic blood pressure 128 mm[Hg] Ligia Praisler-Wood MANAGER OF DRILLING.STACK CLERK Work Phone: [facility] 10-24-2023 14:39-0400 Heart rate 86 /min Deng Foster MD Work Phone: [facility] 10-24-2023 14:39-0400 Respiratory rate 18 /min Deng Foster MD Work Phone: [facility] 10-24-2023 14:39-0400 SaO2% (BldA) [Mass fraction] 97 % Degn Foster MD Work Phone: [facility] 07-31-2023 23:48-0400 Body temperature 98.2 [degF] [facility] 07-31-2023 23:48-0400 Diastolic blood pressure 95 mm[Hg] [facility] 07-31-2023 23:48-0400 Heart rate 96 /min [facility] 07-31-2023 23:48-0400 Respiratory rate 16 /min [facility] 07-31-2023 23:48-0400 SaO2% (BldA) [Mass fraction] 93 % [facility] 07-31-2023 23:48-0400 Systolic blood pressure 114 mm[Hg] [facility] 07-31-2023 19:55-0400 Body height 167.64 cm [facility] 07-31-2023 19:55-0400 Body mass index (BMI) [Ratio] 26.3 kg/m2 [facility] 07-31-2023 19:55-0400 Body weight 74 kg [facility] 07-30-2023 16:50-0400 Body temperature 97.9 [degF] Krislyn Aberegg PA Work Phone: [facility] 07-30-2023 16:50-0400 Body weight 73.6 kg Krislyn Aberegg PA Work Phone: [facility] 07-30-2023 16:50-0400 Diastolic blood pressure 82 mm[Hg] Krislyn Aberegg PA Work Phone: [facility] 07-30-2023 16:50-0400 Heart rate 106 /min Krislyn Aberegg PA Work Phone: [facility] 07-30-2023 16:50-0400 Respiratory rate 18 /min Krislyn Aberegg PA Work Phone: [facility] 07-30-2023 16:50-0400 SaO2% (BldA) [Mass fraction] 96 % Krislyn Aberegg PA Work Phone: [facility] 07-30-2023 16:50-0400 Systolic blood pressure 122 mm[Hg] Krislyn Aberegg PA Work Phone: [facility] 02-09-2023 06:36-0400 Diastolic blood pressure 73 mm[Hg] [facility] 02-09-2023 06:36-0400 Heart rate 72 /min [facility] 02-09-2023 06:36-0400 Respiratory rate 16 /min [facility] 02-09-2023 06:36-0400 SaO2% (BldA) [Mass fraction] 98 % [facility] 02-09-2023 06:36-0400 Systolic blood pressure 108 mm[Hg] [facility] 02-09-2023 04:21-0400 Body height 167.64 cm [facility] 02-09-2023 04:21-0400 Body mass index (BMI) [Ratio] 31.8 kg/m2 [facility] 02-09-2023 04:21-0400 Body temperature 97.9 [degF] [facility] 02-09-2023 04:21-0400 Body weight 89.7 kg [facility] 12-26-2022 23:51-0400 Body height 167.64 cm [facility] 12-26-2022 23:51-0400 Body mass index (BMI) [Ratio] 34.4 kg/m2 [facility] 12-26-2022 23:51-0400 Body temperature 96.9 [degF] [facility] 12-26-2022 23:51-0400 Body weight 97 kg [facility] 12-26-2022 23:51-0400 Diastolic blood pressure 72 mm[Hg] [facility] 12-26-2022 23:51-0400 Heart rate 78 /min [facility] 12-26-2022 23:51-0400 Respiratory rate 16 /min [facility] 12-26-2022 23:51-0400 SaO2% (BldA) [Mass fraction] 100 % [facility] 12-26-2022 23:51-0400 Systolic blood pressure 152 mm[Hg] [facility] 12-17-2022 14:12-0400 Body temperature 98.29 [degF] Amelia Escalona APRN.STACK CLERK Work Phone: [facility] 12-17-2022 14:12-0400 Body weight 68.95 kg Amelia Escalona MANAGER OF DRILLING.STACK CLERK Work Phone: [facility] 12-17-2022 14:12-0400 Diastolic blood pressure 68 mm[Hg] Amelia Escalona MANAGER OF DRILLING.STACK CLERK Work Phone: [facility] 12-17-2022 14:12-0400 Heart rate 78 /min Amelia Escalona MANAGER OF DRILLING.STACK CLERK Work Phone: [facility] 12-17-2022 14:12-0400 Respiratory rate 16 /min Amelia Escalona MANAGER OF DRILLING.STACK CLERK Work Phone: [facility] 12-17-2022 14:12-0400 SaO2% (BldA) [Mass fraction] 97 % Amelia Escalona MANAGER OF DRILLING.STACK CLERK Work Phone: [facility] 12-17-2022 14:12-0400 Systolic blood pressure 118 mm[Hg] Amelia Escalona MANAGER OF DRILLING.STACK CLERK Work Phone: [facility] 11-22-2021 13:25-0400 Body height 167.6 cm Subhash Cocumelli DO Work Phone: [facility] 11-22-2021 13:25-0400 Body mass index (BMI) [Ratio] 25.5 kg/m2 Subhash Cocumelli DO Work Phone: [facility] 11-22-2021 13:25-0400 Body temperature 96.4 [degF] Subhash Cocumelli DO Work Phone: [facility] 11-22-2021 13:25-0400 Body weight 71.67 kg Subhash Cocumelli DO Work Phone: [facility] 11-22-2021 13:25-0400 Diastolic blood pressure 80 mm[Hg] Subhash Cocumelli DO Work Phone: [facility] 11-22-2021 13:25-0400 Heart rate 76 /min Subhash Cocumelli DO Work Phone: [facility] 11-22-2021 13:25-0400 SaO2% (BldA) [Mass fraction] 96 % Subhash Marieumelli DO Work Phone: [facility] 11-22-2021 13:25-0400 Systolic blood pressure 110 mm[Hg] Subhash Marieumelli DO Work Phone: [facility] 01-03-2021 13:24-0400 Body height 167.6 cm Subhash Cocumelli DO Work Phone: [facility] 01-03-2021 13:24-0400 Body mass index (BMI) [Ratio] 25.82 kg/m2 Subhash Cocumelli DO Work Phone: [facility] 01-03-2021 13:24-0400 Body temperature 98.01 [degF] Subhash Cocumelli DO Work Phone: [facility] 01-03-2021 13:24-0400 Body weight 72.58 kg Subhash Marieumelli DO Work Phone: [facility] 01-03-2021 13:24-0400 Diastolic blood pressure 60 mm[Hg] Subhash Marieumelli DO Work Phone: [facility] 01-03-2021 13:24-0400 Heart rate 76 /min Subhash Marieumelli DO Work Phone: [facility] 01-03-2021 13:24-0400 SaO2% (BldA) [Mass fraction] 93 % Subhash Cocumelli DO Work Phone: [facility] 01-03-2021 13:24-0400 Systolic blood pressure 110 mm[Hg] Subhash Cocumelli DO Work Phone: [facility] 12-13-2020 14:17-0400 Body mass index (BMI) [Ratio] 25.66 kg/m2 Bridgette Pastorino DO Work Phone: [facility] 12-13-2020 14:17-0400 Body temperature 97.7 [degF] Bridgette Pastorino DO Work Phone: [facility] 12-13-2020 14:17-0400 Body weight 72.12 kg Bridgette Pastorino DO Work Phone: [facility] 12-13-2020 14:17-0400 Diastolic blood pressure 73 mm[Hg] Bridgette Pastorino DO Work Phone: [facility] 12-13-2020 14:17-0400 Heart rate 75 /min Bridgette Pastorino DO Work Phone: [facility] 12-13-2020 14:17-0400 SaO2% (BldA) [Mass fraction] 94 % Bridgette Pastorino DO Work Phone: [facility] 12-13-2020 14:17-0400 Systolic blood pressure 139 mm[Hg] Bridgette Pastorino DO Work Phone: [facility] 11-23-2020 10:00-0400 Body height 167.6 cm Bridgette Pastorino DO Work Phone: [facility] 11-23-2020 10:00-0400 Body mass index (BMI) [Ratio] 25.57 kg/m2 Bridgette Pastorino DO Work Phone: [facility] 11-23-2020 10:00-0400 Body weight 71.85 kg Bridgette Pastorino DO Work Phone: [facility] 11-23-2020 10:00-0400 Diastolic blood pressure 83 mm[Hg] Bridgette Pastorino DO Work Phone: [facility] 11-23-2020 10:00-0400 Heart rate 90 /min Bridgette Pastorino DO Work Phone: [facility] 11-23-2020 10:00-0400 SaO2% (BldA) [Mass fraction] 95 % Bridgette Pastorino DO Work Phone: [facility] 11-23-2020 10:00-0400 Systolic blood pressure 134 mm[Hg] Bridgette Pastorino DO Work Phone: [facility] 10-03-2020 13:05-0400 Body height 167.6 cm Subhash Cocumeerici DO Work Phone: [facility] 10-03-2020 13:05-0400 Body mass index (BMI) [Ratio] 25.5 kg/m2 Subhash Cocumelli DO Work Phone: [facility] 10-03-2020 13:05-0400 Body temperature 98.2 [degF] Subhash Cocumelli DO Work Phone: [facility] 10-03-2020 13:05-0400 Body weight 71.67 kg Subhash Cocumelli DO Work Phone: [facility] 10-03-2020 13:05-0400 Diastolic blood pressure 72 mm[Hg] Subhash Marieumelli DO Work Phone: [facility] 10-03-2020 13:05-0400 Heart rate 67 /min Subhash Marieumelli DO Work Phone: [facility] 10-03-2020 13:05-0400 SaO2% (BldA) [Mass fraction] 97 % Subhash Cocumelli DO Work Phone: [facility] 10-03-2020 13:05-0400 Systolic blood pressure 118 mm[Hg] Subhash Marieumelli DO Work Phone: [facility] 08-15-2020 13:39-0400 Body mass index (BMI) [Ratio] 25.82 kg/m2 Subhash Cocumelli DO Work Phone: [facility] 08-15-2020 13:39-0400 Body temperature 98.01 [degF] Subhash Cocumelli DO Work Phone: [facility] 08-15-2020 13:39-0400 Body weight 72.58 kg Subhash Cocumelli DO Work Phone: [facility] 08-15-2020 13:39-0400 Diastolic blood pressure 72 mm[Hg] Subhash Cocumelli DO Work Phone: [facility] 08-15-2020 13:39-0400 Heart rate 82 /min Subhash Navas DO Work Phone: [facility] 08-15-2020 13:39-0400 SaO2% (BldA) [Mass fraction] 98 % Subhash Navas DO Work Phone: [facility] 08-15-2020 13:39-0400 Systolic blood pressure 118 mm[Hg] Subhash Navas DO Work Phone: [facility] 03-01-2020 14:17-0500 BMI (Body Mass Index) 23.73 kg/m2 Subhahs Navas [facility] 03-01-2020 14:17-0500 Body Temperature 97.59 [degF] Subhash Navas [facility] 03-01-2020 14:17-0500 Body weight 66.68 kg Subhash Navas [facility] 03-01-2020 14:17-0500 BP Diastolic 60 mm[Hg] Subhash Navas [facility] 03-01-2020 14:17-0500 BP Systolic 106 mm[Hg] Subhash Navas [facility] 03-01-2020 14:17-0500 Height 167.6 [facility] 03-01-2020 14:17-0500 Pulse (Heart Rate) 69 /min Subhash Navas [facility] 03-01-2020 14:17-0500 Pulse Oximetry 95 % Subhash Navas [facility] 11-11-2019 14:29-0400 BMI (Body Mass Index) 23.89 kg/m2 Subhash Navas [facility] 11-11-2019 14:29-0400 Body Temperature 97.81 [degF] Subhash Navas [facility] 11-11-2019 14:29-0400 Body weight 67.13 kg Subhash Navas [facility] 11-11-2019 14:29-0400 BP Diastolic 60 mm[Hg] Subhash Navas [facility] 11-11-2019 14:29-0400 BP Systolic 110 mm[Hg] Subhash Navas [facility] 11-11-2019 14:29-0400 Height 167.6 cm Subhash Navas [facility] 11-11-2019 14:29-0400 P[facility] (Heart Rate) 78 [facility] 11-11-2019 14:29-0400 Pulse [facility]ximetry 97 [facility] 04-30-2019 11:41-0500 BMI (Body Mass Index) 24.15 kg/m2 [facility] 04-30-2019 11:41-0500 Body Temperature 97.59 [degF] [facility] 04-30-2019 11:41-0500 Body weight 67.86 kg [facility] 04-30-2019 11:41-0500 BP Diastolic 68 mm[Hg] [facility] 04-30-2019 11:41-0500 BP Systolic 108 mm[Hg] [facility] 04-30-2019 11:41-0500 Height 167.6 cm [facility] 04-30-2019 11:41-0500 Pulse (Heart Rate) 76 /min [facility] 04-30-2019 11:41-0500 Pulse Oximetry 95 % [facility] 01-12-2019 14:15-0400 BMI (Body Mass Index) 23.4 kg/m2 [facility] 01-12-2019 14:15-0400 Body Temperature 66 [degF] [facility] 01-12-2019 14:15-0400 Body weight 65.77 kg [facility] 01-12-2019 14:15-0400 BP Diastolic 74 mm[Hg] [facility] 01-12-2019 14:15-0400 BP Systolic 122 mm[Hg] [facility] 01-12-2019 14:15-0400 Height 167.6 cm [facility] 01-12-2019 14:15-0400 Pulse (Heart Rate) 73 /min [facility] 01-12-2019 14:15-0400 Pulse Oximetry 96 % [facility] 12-10-2018 10:54-0400 BMI (Body Mass Index) 22.76 kg/m2 [facility] 12-10-2018 10:54-0400 Body Temperature 97.81 [degF] [facility] 12-10-2018 10:54-0400 Body weight 63.96 kg Subhash Navas [facility] 12-10-2018 10:54-0400 BP Diastolic 60 mm[Hg] Subhash Navas [facility] 12-10-2018 10:54-0400 BP Systolic 96 mm[Hg] Subhash Navas [facility] 12-10-2018 10:54-0400 Height 167.6 cm [facility] 12-10-2018 10:54-0400 Pulse (Heart Rate) 73 /min [facility] 12-10-2018 10:54-0400 Pulse Oximetry 96 [facility] 09-23-2018 16:04-0400 BMI (Body Mass Index) 23.57 kg/m2 [facility] 09-23-2018 16:04-0400 Body Temperature 98.01 [degF] [facility] 09-23-2018 16:04-0400 BP Diastolic 68 mm[Hg] [facility] 09-23-2018 16:04-0400 BP Systolic 124 mm[Hg] [facility] 09-23-2018 16:04-0400 Height 167.6 cm [facility] 09-23-2018 16:04-0400 Pulse (Heart Rate) 70 /min [facility] 09-23-2018 16:04-0400 Pulse Oximetry 96 [facility] 09-23-2018 16:04-0400 Weight 66.22 kg [facility] 06-02-2018 14:37-0500 BMI (Body Mass Index) 25.02 kg/m2 [facility] 06-02-2018 14:37-0500 Body Temperature 98.2 [degF] [facility] 06-02-2018 14:37-0500 BP Diastolic 66 mm[Hg] [facility] 06-02-2018 14:37-0500 BP Systolic 120 mm[Hg] [facility] 06-02-2018 14:37-0500 Height 167.6 cm [facility] 06-02-2018 14:37-0500 Pulse (Heart Rate) 77 /min Subhash Navas [facility] 06-02-2018 14:37-0500 Pulse Oximetry 97 % Subhash Navas [facility] 06-02-2018 14:37-0500 Weight 70.31 kg Subhash Navas [facility] 05-30-2018 22:30-0500 BP Diastolic 56 mm[Hg] Angelica Thomas [facility] 05-30-2018 22:30-0500 BP Systolic 117 mm[Hg] Angelica Thomas [facility] 05-30-2018 22:30-0500 Pulse (Heart Rate) 100 /min Angelica Thomas [facility] 05-30-2018 22:30-0500 Pulse Oximetry 90 % Angelica Thomas [facility] 05-30-2018 18:01-0500 BMI (Body Mass Index) 25.02 kg/m2 Angelica Thomas [facility] 05-30-2018 18:01-0500 Body Temperature 98.2 [degF] Angelica Thomas [facility] 05-30-2018 18:01-0500 Height 167.6 cm Angelica Thomas [facility] 05-30-2018 18:01-0500 Respiratory Rate 18 /min Angelica Thomas [facility] 05-30-2018 18:01-0500 Weight 70.31 kg Angelica Thomas [facility] 05-26-2018 16:18-0500 BMI (Body Mass Index) 25.02 kg/m2 [facility]-26-2018 16:18-0500 Body Temperature 97.81 [degF] [facility] 05-26-2018 16:18-0500 BP Diastolic 64 mm[Hg] [facility] 05-26-2018 16:18-0500 BP Systolic 126 mm[Hg] [facility] 05-26-2018 16:18-0500 Height 167.6 cm [facility] 05-26-2018 16:18-0500 Pulse (Heart Rate) 73 /min Subhash Navas [facility] 05-26-2018 16:18-0500 Pulse Oximetry 98 % Subhash Navas [facility] 05-26-2018 16:18-0500 Weight 70.31 kg Subhash Navas [facility] 04-21-2018 14:12-0500 BMI (Body Mass Index) 25.02 kg/m2 [facility] 04-21-2018 14:12-0500 Body Temperature 98.2 [degF] [facility] 04-21-2018 14:12-0500 BP Diastolic 62 mm[Hg] [facility] 04-21-2018 14:12-0500 BP Systolic 120 mm[Hg] [facility] 04-21-2018 14:12-0500 Height 167.6 cm [facility] 04-21-2018 14:12-0500 Pulse (Heart Rate) 72 /min [facility] 04-21-2018 14:12-0500 Pulse Oximetry 97 % [facility] 04-21-2018 14:12-0500 Weight 70.31 kg [facility] 01-20-2018 14:59-0400 BMI (Body Mass Index) 24.05 kg/m2 [facility] 01-20-2018 14:59-0400 Body Temperature 98.49 [degF] [facility] 01-20-2018 14:59-0400 BP Diastolic 77 mm[Hg] [facility] 01-20-2018 14:59-0400 BP Systolic 119 mm[Hg] [facility] 01-20-2018 14:59-0400 Height 167.6 cm [facility] 01-20-2018 14:59-0400 Pulse (Heart Rate) 73 /min [facility] 01-20-2018 14:59-0400 Pulse Oximetry 95 % [facility] 01-20-2018 14:59-0400 Weight 67.59 kg [facility] 01-01-2018 14:54-0400 BMI (Body Mass Index) 24.53 kg/m2 [facility] 01-01-2018 14:54-0400 Body Temperature 98.2 [degF] [facility] 01-01-2018 14:54-0400 BP Diastolic 66 mm[Hg] [facility] 01-01-2018 14:54-0400 BP Systolic 120 mm[Hg] [facility] 01-01-2018 14:54-0400 Height 167.6 cm [facility] 01-01-2018 14:54-0400 Pulse (Heart Rate) 76 /min Subhash Navas [facility] 01-01-2018 14:54-0400 Pulse Oximetry 98 % Subhash Navas [facility] 01-01-2018 14:54-0400 Weight 68.95 kg Subhash Navas [facility] 09-17-2017 14:54-0400 BMI (Body Mass Index) 24.37 kg/m2 [facility] 09-17-2017 14:54-0400 Body Temperature 97.59 [degF] [facility] 09-17-2017 14:54-0400 BP Diastolic 60 mm[Hg] [facility] 09-17-2017 14:54-0400 BP Systolic 102 mm[Hg] [facility] 09-17-2017 14:54-0400 Height 167.6 cm [facility] 09-17-2017 14:54-0400 Pulse (Heart Rate) 76 /min [facility] 09-17-2017 14:54-0400 Pulse Oximetry 97 % [facility] 09-17-2017 14:54-0400 Weight 68.49 kg [facility] 05-16-2017 13:10-0500 BMI (Body Mass Index) 24.37 kg/m2 [facility] Work Phone: 05-16-2017 13:10-0500 Body Temperature 97.9 [degF] [facility] Work Phone: 05-16-2017 13:10-0500 BP Diastolic 64 mm[Hg] [facility] Work Phone: 05-16-2017 13:10-0500 BP Systolic 128 mm[Hg] [facility] Work Phone: 05-16-2017 13:10-0500 Height 167.6 cm Subhash Navas [facility] Work Phone: 05-16-2017 13:10-0500 Pulse (Heart Rate) 79 /min Subhash Navas [facility] Work Phone: 05-16-2017 13:10-0500 Pulse Oximetry 97 % [facility] Work [facility]: 05-16-2017 13:10-0500 Weight 68.49 kg [facility] Work Phone: 02-14-2017 15:07-0400 BMI (Body Mass Index) 23.57 kg/m2 [facility] Work Phone: 02-14-2017 15:07-0400 Body Temperature 97.5 [degF] Janey Conrad [facility] Work Phone: 02-14-2017 15:07-0400 BP Diastolic 77 mm[Hg] [facility] Work Phone: 02-14-2017 15:07-0400 BP Systolic 124 mm[Hg] Janey Conrad [facility] Work Phone: 02-14-2017 15:07-0400 Height 167.6 cm Janey Conrad [facility] Work Phone: 02-14-2017 15:07-0400 Pulse (Heart Rate) 75 /min [facility] Work Phone: 02-14-2017 15:07-0400 Pulse Oximetry 98 % Janey Conrad [facility] Work Phone: 02-14-2017 15:07-0400 Respiratory Rate 17 /min Janey Conrad [facility] Work Phone: 02-14-2017 15:07-0400 Weight 66.22 kg [facility] Work Phone: 01-31-2017 15:33-0400 BMI (Body Mass Index) 23.4 kg/m2 Subhash Navas [facility] Work Phone: 01-31-2017 15:33-0400 Body Temperature 98.01 [degF] Subhash Navas [facility] Work Phone: 01-31-2017 15:33-0400 BP Diastolic 60 mm[Hg] [facility] Work Phone: 01-31-2017 15:33-0400 BP Systolic 100 mm[Hg] [facility] Work Phone: 01-31-2017 15:33-0400 Height 167.6 cm [facility] Work Phone: 01-31-2017 15:33-0400 Pulse (Heart Rate) 68 /min [facility] Work Phone: 01-31-2017 15:33-0400 Pulse Oximetry 96 % [facility] Work Phone: 01-31-2017 15:33-0400 Weight 65.77 kg [facility] Work Phone: 12-03-2016 13:37-0400 BMI (Body Mass Index) 23.24 kg/m2 [facility] Work Phone: 12-03-2016 13:37-0400 Body Temperature 97.81 [degF] [facility] Work Phone: 12-03-2016 13:37-0400 BP Diastolic 62 mm[Hg] [facility] Work Phone: 12-03-2016 13:37-0400 BP Systolic 94 mm[Hg] [facility] Work Phone: 12-03-2016 13:37-0400 Height 167.6 cm [facility] Work Phone: 12-03-2016 13:37-0400 Pulse (Heart Rate) 64 /min [facility] Work Phone: 12-03-2016 13:37-0400 Pulse Oximetry 96 % [facility] Work Phone: 12-03-2016 13:37-0400 Weight 65.32 kg [facility] Work Phone: Encounters Encounter Date Encounter Type Care Provider Facility Start: 02-15-2025 End: 02-15-2025 ambulatory SPENCER A LC Facility:[facility] Start: 02-12-2025 End: 02-12-2025 ambulatory SOLIS LAMBERT Facility:[facility] Start: 01-29-2025 End: 01-29-2025 ambulatory SOLIS LAMBERT Facility:[facility] Start: 2025 End: 2025 ambulatory SPENCER A LC Facility:[facility] Start: 01-22-2025 End: 01-22-2025 ambulatory SOLIS LAMBERT Facility:[facility] Start: 01-18-2025 End: 01-18-2025 ambulatory SOLIS LAMBERT Facility:[facility] Start: 01-11-2025 End: 01-11-2025 ambulatory SOLIS LAMBERT Facility:[facility] Start: 01-04-2025 End: 01-04-2025 ambulatory SOLIS LAMBERT Facility:[facility] Start: 12-31-2024 End: 12-31-2024 ambulatory LETICIA RAO Facility:[facility] Start: 12-28-2024 End: 12-28-2024 Telephone encounter eHidi Klein RN Hematology/Oncology Comment on above: Pai Gow Manager - O ther (Antiemetic) Start: 12-28-2024 End: 12-28-2024 ambulatory SOLIS LAMBERT Facility:[facility] Start: 12-28-2024 End: 12-28-2024 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 [facility] Work Phone: Hematology/Oncology Comment on above: Encounter for educat ion (Primary Dx) Start: 12-23-2024 End: 12-24-2024 Telephone encounter Spencer Velarde DO Work Phone: Hematology/Oncology Comment on above: Appointment; Patient Update Start: 12-22-2024 End: 12-22-2024 ambulatory Solis Lambert MD Work Phone: [facility] Comment on above: Allied Health Visit (Medication Adherence Outreach/) Refill Request Start: 12-17-2024 End: 12-17-2024 ambulatory SOLIS LAMBERT Facility:[facility] Start: 12-17-2024 End: 12-17-2024 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 [facility] Work Phone: Hematology/Oncology Comment on above: Encounter for educat ion (Primary Dx) Start: 12-09-2024 End: 12-10-2024 Telephone encounter Heidi Klein RN Hematology/Oncology Comment on above: Pai Gow Manager - O ther (Chemo education ) Start: 12-07-2024 End: 12-07-2024 ambulatory SOLIS LAMBERT Facility:[facility] Start: 12-07-2024 End: 12-07-2024 Patient encounter procedure Solis Lambert MD Work Phone: [facility] [place] Comment on above: Medicare annual well ness visit, subsequent (Primary Dx); Moderate recurrent major depression (HCC); Generalized anxiety disorder; Cancer of kidney, right (HCC); 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); Metastasis to mediastinal lymph node (HCC); Memory impairment Start: 11-25-2024 End: 11-25-2024 Patient encounter procedure Chyna Kate [facility] Comment on above: SPP Oral Oncology/he matology - Treatment Referral (Inlyta); Insurance Authorization (Pending PA) Start: 11-25-2024 End: 12-24-2024 Telephone encounter Spencer Velarde DO Work Phone: Hematology/Oncology Comment on above: AVS 11/25 Start: 11-25-2024 End: 11-25-2024 Office outpatient visit 25 minutes Spencer Velarde DO Work Phone: Hematology/Oncology Comment on above: Cancer of kidney, ri ght (HCC) (Primary Dx); 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 Start: 11-05-2024 ambulatory [facility] Start: 11-05-2024 End: 11-05-2024 Preprocedural examination done Latrice Reagan MD Work Phone: [facility] Start: 11-05-2024 End: 11-05-2024 Subsequent hospital visit by physician Latrice Reagan MD Work Phone: [facility] Comment on above: Cancer of kidney, ri ght (HCC) [C64.1] Start: 10-28-2024 End: 10-28-2024 ambulatory [facility] [place] Start: 10-28-2024 End: 10-28-2024 Patient encounter procedure Solis Lambert MD Work Phone: [facility] [place] Comment on above: Population Health Na vigation Outreach ([facility] [place] ) Start: 10-08-2024 End: 10-08-2024 Telephone encounter Latrice Reagan MD [facility] Phone: [facility] [place] Comment on above: Appointment Start: 10-07-2024 End: 10-07-2024 Telephone encounter Latrice Reagan MD Work Phone: [facility] Comment on above: Appointment Start: 09-17-2024 End: 09-17-2024 Patient encounter procedure Spencer Velarde DO Work Phone: Hematology/Oncology Start: 09-17-2024 End: 09-17-2024 ambulatory Spencer Velarde DO Work Phone: Hematology/Oncology Comment on above: Cancer of kidney, ri ght (HCC) (Primary Dx); Metastasis to mediastinal lymph node (HCC); 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) Start: 09-11-2024 End: 09-11-2024 Telephone encounter Spencer Velarde DO Work Phone: Hematology/Oncology Comment on above: Appointment Start: 09-02-2024 End: 09-02-2024 ambulatory SOLIS LAMBERT Facility:[facility] Start: 08-05-2024 End: 08-05-2024 Patient encounter procedure Zandra Zhao MANAGER OF DRILLING.STACK CLERK Work Phone: [facility] [place] Comment on above: Headache, unspecifie d headache type (Primary Dx) Start: 08-05-2024 End: 08-05-2024 ambulatory ZANDRA PODLOGVINNIE Facility:[facility] Start: 07-09-2024 End: 07-09-2024 Telephone encounter Solis Lambert MD Work Phone: [facility] [place] Comment on above: Patient Update Start: 06-18-2024 End: 06-19-2024 Telephone encounter Spencer Velarde DO Work Phone: Hematology/Oncology Comment on above: Cough Start: 06-08-2024 End: 06-08-2024 ambulatory SOLIS LAMBERT Facility:[facility] Start: 06-08-2024 End: 06-08-2024 Patient encounter procedure Solis Lambert MD Work Phone: [facility] [place] Comment on above: Generalized anxiety disorder (Primary Dx); Mild intermittent asthma without complication Start: 06-05-2024 End: 06-08-2024 Telephone encounter Spencer Velarde DO Work Phone: Hematology/Oncology Comment on above: Results Start: 06-04-2024 End: 06-04-2024 ambulatory AGUILAR NAVA Facility:[facility] Start: 06-04-2024 End: 06-04-2024 Follow-up encounter Aguilar Nava MD Work Phone: Radiation Oncology Comment on above: Radiotherapy follow- up (Primary Dx); Metastasis to mediastinal lymph node (HCC) Start: 06-04-2024 End: 06-04-2024 Telemedicine consultation with patient Aguilar Nava MD Work Phone: Radiation Oncology Start: 06-03-2024 End: 06-03-2024 Patient encounter procedure Spencer Velarde DO Work Phone: Hematology/Oncology Start: 06-03-2024 End: 06-03-2024 ambulatory Spencer Velarde DO Work Phone: Hematology/Oncology Comment on above: Cancer of kidney, ri ght (HCC) (Primary Dx); Metastasis to mediastinal lymph node (HCC); Secondary polycythemia Start: 05-28-2024 End: 05-28-2024 ambulatory SPENCER VELARDE Facility:[facility] Start: 05-28-2024 End: 05-28-2024 Subsequent hospital visit by physician Aylin [facility] ([facility]) Work Phone: Cat Scan Comment on above: Metastasis to medias tinal lymph node (HCC) [C77.1] Start: 05-27-2024 End: 05-27-2024 Telephone encounter Spencer Velarde DO Work Phone: Hematology/Oncology Comment on above: Appointment Start: 05-26-2024 End: 06-02-2024 Telephone encounter Spencer Velarde DO Work Phone: Hematology/Oncology Comment on above: Forms Start: 05-20-2024 End: 05-20-2024 Refill Spencer Velarde DO Work Phone: Hematology/Oncology Start: 05-06-2024 End: 05-06-2024 ambulatory Aguilar Nava MD Work Phone: Radiation Oncology Comment on above: Patient Education Start: 05-06-2024 End: 05-14-2024 Patient encounter procedure Aguilar Nava MD Work Phone: Radiation Oncology Start: 05-06-2024 End: 05-14-2024 Radiation Oncology Note Aguilar Nava MD Work Phone: Radiation Oncology Comment on above: Completion Note Start: 05-05-2024 End: 05-05-2024 Patient encounter procedure Mateo Joe MD Work Phone: Radiation Oncology Comment on above: Metastasis to medias tinal lymph node (HCC) (Primary Dx) Start: 05-05-2024 End: 05-05-2024 ambulatory MATEO JOE Facility:[facility] Start: 05-04-2024 End: 05-04-2024 ambulatory AGUILAR NAVA Facility:[facility] Start: 05-01-2024 End: 05-01-2024 ambulatory AGUILAR NAVA Facility:[facility] Start: 04-30-2024 End: 04-30-2024 ambulatory AGUILAR JOSEE Facility:[facility] Start: 04-29-2024 End: 04-29-2024 ambulatory AGUILAR JOSEE Facility:[facility] Start: 04-28-2024 End: 04-28-2024 ambulatory AGUILAR JOSEE Facility:[facility] Start: 04-27-2024 End: 04-27-2024 ambulatory AGUILAR JOSEE Facility:[facility] Start: 04-24-2024 End: 04-24-2024 ambulatory AGUILAR JOSEE Facility:[facility] Start: 04-23-2024 End: 04-23-2024 ambulatory AGUILAR JOSEE Facility:[facility] Start: 04-22-2024 End: 04-22-2024 ambulatory AGUILAR JOSEE Facility:[facility] Start: 04-21-2024 End: 04-21-2024 Patient encounter procedure Aguilar Nava MD Work Phone: Radiation Oncology Comment on above: Metastasis to medias tinal lymph node (HCC) (Primary Dx) Start: 04-21-2024 End: 04-21-2024 ambulatory AGUILAR JOSEE Facility:[facility] Start: 04-20-2024 End: 04-20-2024 ambulatory AGUILAR NAVA Facility:[facility] Start: 04-17-2024 End: 04-17-2024 ambulatory AGUILAR JOSEE Facility:[facility] Start: 04-16-2024 End: 04-16-2024 ambulatory AGUILAR JOSEE Facility:[facility] Start: 03-30-2024 End: 04-14-2024 Patient encounter procedure Aguilar Nava MD Work Phone: Radiation Oncology Start: 03-30-2024 End: 04-14-2024 Radiation Oncology Note Aguilar Nava MD Work Phone: Radiation Oncology Comment on above: Simulation Note Treatment Planning Start: 03-30-2024 End: 03-30-2024 ambulatory NITINRO NAVA Facility:[facility] Start: 03-30-2024 End: 03-30-2024 Nursing evaluation of patient and report Nurse Leilani [facility] Work Phone: Radiation Oncology Comment on above: Metastasis to medias tinal lymph node (HCC) (Primary Dx) Start: 03-27-2024 End: 03-30-2024 Orders Only Aguilar Nava MD Work Phone: Radiation Oncology Comment on above: Metastasis to medias tinal lymph node (HCC) (Primary Dx) Start: 03-23-2024 End: 03-23-2024 ambulatory AGUILAR NAVA Facility:[facility] Start: 03-23-2024 End: 03-23-2024 Patient encounter procedure Aguilar Nava MD Work Phone: Radiation Oncology Comment on above: Metastasis to medias tinal lymph node (HCC) (Primary Dx) Start: 03-19-2024 End: 03-19-2024 ambulatory Spencer Velarde DO Work Phone: Hematology/Oncology Comment on above: Metastasis to medias tinal lymph node (HCC) (Primary Dx); History of kidney cancer; Polycythemia Start: 03-19-2024 End: 03-19-2024 Patient encounter procedure Spencer Velarde DO Work Phone: Hematology/Oncology Start: 03-13-2024 End: 03-17-2024 Telephone encounter Solis Lambert MD Work Phone: [facility] [place] Comment on above: Results Start: 03-10-2024 End: 03-10-2024 ambulatory SOLIS LAMBERT Facility:[facility] Start: 03-10-2024 End: 03-10-2024 Patient encounter procedure Solis Lambert MD Work Phone: [facility] [place] Comment on above: Encounter for medica l examination to establish care (Primary Dx); Generalized anxiety disorder; Primary hypertension; Mediastinal mass; Hypercholesterolemia; Chronic low back pain, unspecified back pain laterality, unspecified whether sciatica present; Encounter for immunization Start: 03-10-2024 End: 03-10-2024 Patient encounter status Solis Lambert MD Work Phone: [facility] Work Phone: Start: 03-10-2024 End: 03-10-2024 ambulatory SOLIS LAMBERT Facility:[facility] Start: 03-10-2024 Encounter for genera l adult medical examination without abnormal findings SOLIS LAMBERT [facility] Start: 03-02-2024 End: 03-02-2024 Office outpatient new 45 minutes Philippe Pena MD Work Phone: Pulmonary Medicine Comment on above: Adenopathy (Primary Dx) Start: 03-02-2024 End: 03-03-2024 ambulatory PHILIPPE PENA Facility:[facility] Start: 03-02-2024 Encounter for other preprocedural examination AGUILAR NAVA [facility] Start: 02-19-2024 End: 02-19-2024 Telephone encounter Cristofer Mota [id number] Comment on above: Appointment (PreOp Michael ramos) Start: 02-18-2024 End: 02-18-2024 ambulatory Mariam Oliver MD Work Phone: Pulmonary Medicine Comment on above: Bronchoscopy Schedul ing- CLEARED (Initial Bronch Request ) Start: 02-18-2024 End: 02-18-2024 Patient encounter status Mariam Oliver MD Work Phone: [facility] Work Phone: Start: 02-14-2024 End: 02-14-2024 Subsequent hospital visit by physician Aylin [facility] ([facility]) Work Phone: Cat Scan Comment on above: Mediastinal mass [J9 8.59] Start: 02-14-2024 End: 02-14-2024 ambulatory Spencer Velarde DO Work Phone: Hematology/Oncology Comment on above: Mediastinal mass (Pr imary Dx); Other chest pain Start: 02-14-2024 End: 02-14-2024 Patient encounter procedure Spencer Velarde DO Work Phone: Hematology/Oncology Start: 02-05-2024 End: 02-05-2024 ambulatory Ramiro Santana [facility] Start: 02-03-2024 End: 02-07-2024 Telephone encounter Spencer Velarde DO Work Phone: Hematology/Oncology Start: 01-28-2024 End: 01-29-2024 [facility]ulatory [facility] Start: 01-24-2024 End: 01-24-2024 ambulatory [facility] Start: 01-21-2024 End: 01-21-2024 ambulatory [facility] Facility:[facility] Start: 01-10-2024 End: 01-10-2024 ambulatory [facility] Facility:[facility] Start: 01-07-2024 ambulatory [facility] Start: 12-26-2023 End: 12-26-2023 ambulatory [facility] Start: 12-18-2023 End: 02-11-2024 Telephone encounter Solis Lambert MD Work Phone: [facility] Comment on above: New Patient; Hospita l F/U Start: 12-12-2023 End: 12-12-2023 ambulatory [facility] Start: 12-10-2023 End: 12-10-2023 Chart abstracting Mary Jo oBnd MA [facility] Start: 12-09-2023 ambulatory [facility] Start: 12-09-2023 End: 12-09-2023 ambulatory [facility] Facility:[facility] Start: 12-07-2023 End: 12-07-2023 Emergency department patient visit JEN MUKHERJEE Facility:[facility] Start: 12-07-2023 End: 12-07-2023 Patient encounter procedure Ligia Naylor APRN.CNP Work Phone: [facility] Comment on above: SOB (shortness of br eath) (Primary Dx); Rash; Ankle swelling, unspecified laterality Start: 10-24-2023 End: 10-24-2023 Subsequent hospital visit by physician Sheryl [facility] [place] Laguerre Work Phone: Radiology Comment on above: Lumbar spondylosis [ M47.816] Start: 10-24-2023 End: 10-24-2023 Patient encounter procedure Deng Foster MD Work Phone: [facility] Comment on above: Lumbar spondylosis ( Primary Dx); Myofascial pain Start: 07-31-2023 End: 07-31-2023 Emergency department patient visit [facility] Work Phone: Start: 07-30-2023 End: 07-30-2023 Patient encounter procedure Priscilla Marroquin PA Work Phone: [facility] [place] [facility] Comment on above: Acute right-sided lo w back pain without sciatica (Primary Dx) Onychomycosis (Prima ry Dx); Pain in toe of left foot; Pain in toe of right foot Start: 04-23-2023 Refill Subhash Navas DO Work Phone: [facility] Comment on above: Essential hypertensi on Start: 04-04-2023 Refill Subhash Navas DO Work Phone: [facility] Comment on above: Asthma, intermittent , uncomplicated; Environmental and seasonal allergies; Hyperlipidemia, unspecified hyperlipidemia type Start: 02-09-2023 End: 02-09-2023 Emergency department patient visit [facility] Work Phone: Start: 12-26-2022 End: 12-27-2022 Emergency department patient visit [facility] Work Phone: Start: 12-18-2022 Telephone encounter Ligia Corcoran MANAGER OF DRILLING.STACK CLERK Work Phone: [place] [facility] Comment on above: Results Start: 12-17-2022 End: 12-17-2022 Patient encounter procedure Amelia Escalona MANAGER OF DRILLING.STACK CLERK Work Phone: [place] [facility] Comment on above: URI, acute (Primary Dx) Start: 09-26-2022 End: 09-26-2022 ambulatory SUBHASH NAVAS [facility] Start: 09-26-2022 End: 09-30-2022 ambulatory SUBHASH NAVAS [facility] Start: 09-17-2022 Orders Only Subhash Navas DO Work Phone: [facility] Comment on above: Essential hypertensi on (Primary Dx); Hyperlipidemia, unspecified hyperlipidemia type Start: 06-05-2022 End: 06-05-2022 ambulatory [facility] Work Phone: Start: 06-05-2022 End: 06-05-2022 Patient encounter procedure [facility] Start: 11-22-2021 End: 11-22-2021 Office outpatient visit 25 minutes Subhash Perryviki Navas DO Work Phone: [facility] Comment on above: Asthma, intermittent , uncomplicated (Primary Dx); Environmental and seasonal allergies; Essential hypertension; Hyperlipidemia, unspecified hyperlipidemia type; Irritable bowel syndrome, unspecified type Start: 10-13-2021 End: 10-17-2021 ambulatory [facility] Start: 09-25-2021 Refdimitris Deras MA [facility] Comment on above: Hyperlipidemia, unsp ecified hyperlipidemia type; Anxiety; Essential hypertension Start: 08-15-2021 Orders Only Subhash Sean Marierosana DO Work Phone: [facility] Comment on above: Muscle spasm (Primar y Dx) Start: 05-15-2021 End: 05-16-2021 [facility] Start: 01-03-2021 End: 01-03-2021 Office outpatient visit 25 minutes Subhash Navas DO Work Phone: [facility] Comment on above: Allergic asthma, mil d intermittent, with acute exacerbation (Primary Dx); Asthma, intermittent, uncomplicated; Environmental and seasonal allergies Start: 12-13-2020 End: 12-13-2020 Patient encounter procedure Bridgetteshama Brown Pastleanneo DO Work Phone: [facility] Comment on above: Mass of subcutaneous tissue of back (Primary Dx) Start: 12-01-2020 Refdimitris Deras MA [facility] Comment on above: Muscle spasm Start: 11-28-2020 End: 11-29-2020 ambulatory LUISANA RAM [facility] Start: 11-23-2020 End: 11-23-2020 Office outpatient new 20 minutes Subhash Navas DO Work Phone: [facility] Comment on above: Mass of subcutaneous tissue of back Start: 10-03-2020 End: 10-03-2020 Office outpatient visit 25 minutes Subhash Navas DO Work Phone: [facility] Comment on above: Mass of subcutaneous tissue of back (Primary Dx); Muscle spasm; Anxiety; Hyperlipidemia, unspecified hyperlipidemia type; Essential hypertension; Asthma, intermittent, uncomplicated Start: 09-05-2020 End: 09-05-2020 Documentation procedure Adrianna MoralesPh. Work Phone: [facility] Comment on above: LEYDA PAYER REVIEW HUM VICKIE Start: 08-15-2020 End: 08-15-2020 Patient encounter procedure Subhash Navas DO Work Phone: [facility] Comment on above: Essential hypertensi on (Primary Dx); Mass of subcutaneous tissue of back; Hyperlipidemia, unspecified hyperlipidemia type; Irritable bowel syndrome, unspecified type; Chronic bilateral low back pain without sciatica; Anxiety; Asthma, intermittent, uncomplicated; Muscle spasm; At low risk for fall Start: 05-06-2020 End: 05-06-2020 Orders Only Leonie Burleson Work Phone: [facility] Start: 03-01-2020 End: 03-01-2020 Office outpatient visit 25 minutes Subhash Navas Work Phone: [facility] Comment on above: Pre-op exam (Primary Dx); Cataract of both eyes, unspecified cataract type Start: 12-01-2019 End: 12-01-2019 Subsequent hospital visit by physician Luisana Ram Work Phone: [facility] Comment on above: Calculus of kidney Start: 11-11-2019 End: 11-11-2019 Office outpatient visit 25 minutes Subhash Navas Work Phone: [facility] Comment on above: Hyperlipidemia, unsp ecified hyperlipidemia type (Primary Dx); Essential hypertension; Anxiety Start: 04-30-2019 End: 04-30-2019 Office outpatient visit 15 minutes Subhash Sean Navas Work Phone: [facility] Comment on above: Diarrhea, unspecifie d type (Primary Dx); Irritable bowel syndrome, unspecified type Start: 01-12-2019 End: 01-12-2019 Office outpatient visit 25 minutes Subhash Perryviki Navas Work Phone: [facility] Comment on above: Essential hypertensi on (Primary Dx); Hyperlipidemia, unspecified hyperlipidemia type; Anxiety; Seborrhea capitis Start: 12-10-2018 End: 12-10-2018 Office outpatient visit 15 minutes Subhash Sean [employer] Work Phone: [facility] Comment on above: Neck pain (Primary D x); Seborrhea capitis; At low risk for fall Start: 10-03-2018 End: 10-03-2018 Subsequent hospital visit by physician Luisana Ram Work Phone: [facility] Comment on above: Calculus of kidney Start: 09-23-2018 End: 09-23-2018 Office outpatient visit 25 minutes Subhash Sean Navas Work Phone: [facility] Comment on above: Essential hypertensi on (Primary Dx); Asthma, intermittent, uncomplicated; Anxiety; Chronic bilateral low back pain without sciatica; Hyperlipidemia, unspecified hyperlipidemia type Start: 06-02-2018 End: 06-02-2018 Office outpatient visit 25 minutes Subhash Sean Navas Work Phone: [facility] Comment on above: Cough (Primary Dx); Diarrhea, unspecified type; Anxiety Start: 06-02-2018 End: 06-02-2018 Documentation procedure Anahi Garcia [facility] Physicians Comment on above: ED Follow-up Start: 05-30-2018 End: 05-31-2018 Emergency department patient visit ANGELICA THOMAS [facility] Start: 05-30-2018 End: 05-31-2018 Emergency department patient visit Angelica hTomas Work Phone: [facility] Comment on above: Diarrhea, unspecifie d type (Primary Dx) Start: 05-26-2018 End: 05-26-2018 Office outpatient visit 25 minutes Subhash Navas Work Phone: [facility] Comment on above: Neck pain (Primary D x); Essential hypertension; Hyperlipidemia, unspecified hyperlipidemia type; Anxiety Start: 04-28-2018 End: 04-28-2018 Patient encounter procedure Subhash Navas Work Phone: [facility] Comment on above: Screening mammogram, encounter for Start: 04-21-2018 End: 04-21-2018 Office outpatient visit 15 minutes Subhash Navas Work Phone: [facility] Comment on above: Viral URI with cough (Primary Dx) Start: 01-20-2018 End: 01-20-2018 Office outpatient visit 25 minutes Subhash Navas Work Phone: [facility] Comment on above: Essential hypertensi on (Primary Dx); Anxiety; Hyperlipidemia, unspecified hyperlipidemia type; Flu vaccine need Start: 01-01-2018 End: 01-01-2018 Office outpatient visit 15 minutes Subhash Navas Work Phone: [facility] Comment on above: Essential hypertensi on (Primary Dx); Hyperlipidemia, unspecified hyperlipidemia type; Abdominal pain, epigastric; Medication side effect Start: 09-26-2017 End: 09-26-2017 Ambulatory Subhash Navas Work Phone: [facility] DEXA Start: 09-17-2017 End: 09-17-2017 Office/outpatient visit, est, level 4 Subhash Navas Work Phone: [facility] Start: 06-21-2017 End: 06-21-2017 Ambulatory Luisana Ram Work Phone: [facility] Start: 06-19-2017 End: 06-19-2017 Ambulatory Luisana Ram Work Phone: [facility] Ultrasound Start: 05-16-2017 Office/outpatient visit, est, level 4 Subhash Tellez Gracerosana Work Phone: [facility] Start: 02-14-2017 End: 02-14-2017 Ambulatory SUBHASH NAVAS [facility] Start: 02-14-2017 Office outpatient vi sit 15 minutes Janey Conrad Work Phone: [facility] [place] Start: 02-14-2017 End: 02-14-2017 Ambulatory Subhash Navas Work Phone: [facility] Start: 01-31-2017 End: 01-31-2017 Office outpatient visit 25 minutes Subhash Navas Work Phone: [facility] Comment on above: Essential hypertensi on (Primary Dx);Hyperlipidemia, unspecified hyperlipidemia type;Anxiety;Left leg pain;Chronic bilateral low back pain without sciatica;Flu vaccine need Start: 12-03-2016 End: 12-03-2016 Office outpatient visit 15 minutes Subhash Navas Work Phone: [facility] Comment on above: Diarrhea, unspecifie d type (Primary Dx);Dyspepsia;Risk for falls Start: 11-07-2016 Ambulatory LUISANAALMA Acuña [facility] Start: 11-07-2016 End: 11-07-2016 [facility] Procedures Date Procedure Procedure Detail Performing Clinician Start: 11-05-2024 Esophagoscp rig jeong soral hypopharynx crv esoph Spencer Velarde DO Work Phone: Start: 03-10-2024 [employer] COVI D-19 VACCINE AGE 12+ YR (COMIRNATY) Solis Lambert MD Work Phone: Start: 02-14-2024 Ct thorax w/contrast material Spencer Velarde DO Work Phone: Start: 07-31-2023 CT of abdomen and pe lvis without contrast Start: 02-09-2023 CT of abdomen and pe lvis without contrast Start: 12-27-2022 CT of abdomen and pe lvis without contrast Start: 09-26-2022 Adult depression scr eening assessment Subhash Navas DO Work Phone: Start: 06-05-2022 MRI of orbit, face a nd neck with contrast Start: 08-14-2021 Adult depression scr eening assessment Subhash Navas DO Work Phone: Start: 12-13-2020 EXCISION OF LESION Ya sa Stephanie Pastmaylin DO Work Phone: Start: 08-15-2020 Adult depression scr eening assessment Subhash Navas DO Work Phone: Start: 03-01-2020 12 lead ECG Subhash Navas Work Phone: Start: 01-12-2019 Adult depression scr eening assessment Subhash Navas Start: 10-03-2018 Radiography of sjmood-spxylg-vothjhy Luisana Ram Work Phone: Start: 05-31-2018 Ct abdomen & pelvis w/o contrast material Afshan Griffin Tamayo Work Phone: Start: 05-31-2018 Urinalysis Afshan Sha y Tamayo Work Phone: Start: 05-30-2018 12 lead ECG Angelica aaron Work Phone: Start: 05-30-2018 LIGHT BLUE TOP Triage P rotocol Emergency Start: 05-30-2018 Complete blood count with white cell differential, automated Afshan Griffin Tamayo Work Phone: Start: 05-30-2018 Complete blood count with white cell differential, manual Afshan Griffin Tamayo Work Phone: Start: 05-30-2018 Comprehensive metabo lic 2000 panel - Serum or Plasma Afshan Griffin Tamayo Work Phone: Start: 05-30-2018 BHATIA TOP Triage Pro tocol Emergency Start: 05-30-2018 Lactate [Moles/volum e] in Serum or Plasma Afshan Griffin Tamayo Work Phone: Start: 05-30-2018 LAVENDER TOP Triage Pro tocol Emergency Start: 05-30-2018 LIGHT GREEN TOP Triage Protocol Emergency Start: 05-30-2018 Lipase [Enzymatic activity/volume] in Serum or Plasma Afshan Tamayo Work Phone: Start: 05-30-2018 MINT GREEN TOP Triage P rotocol Emergency Start: 05-30-2018 RAINBOW DRAW Triage Pro tocol Emergency Start: 04-28-2018 Mammography Anahi Perez [facility] Start: 05-16-2017 Adult depression scr eening assessment Subhash Navas Plan of Treatment Date Care Activity Detail Author Start: 11-26-2027 Diabetes Screening Diabetes Screening [facility] Start: 09-03-2027 Diabetes Screening Diabetes Screening [facility] Start: 05-20-2027 Diabetes Screening Diabetes Screening [facility] Start: 03-02-2027 Diabetes Screening Diabetes Screening [facility] Start: 09-26-2025 Diabetes Screening Diabetes Screening [facility] Start: 03-10-2025 RSV Vaccine (1 - 1-dose 75+ series) RSV Vaccine (1 - 1-dose 75+ series) [facility] Comment on above: Postponed from 01/26/2016 (Declined at t his time) Start: 03-10-2025 Urine microalbumin profile DTaP,Tdap,Td Vaccine (1 - Tdap) [facility] Comment on above: Postponed from 01/26/1959 (Declined at t his time) Start: 02-15-2025 End: 02-15-2025 ambulatory 02/15/2025 11:00 AM [facility] Hematology/Oncology [address] [place] [address] KEYTRUDA/LAB&OV 02/12* NO LATER THAN 230 WITH SAME DAY LAB Hematology/Oncolog y Comment on above: KEYTRUDA/LAB&OV 02/12* NO LATER THAN 230 WITH SAME DAY LAB Start: 02-12-2025 End: 02-12-2025 [facility] Comment on above: CBC/CMP/UA(b/o)/TSH/T4/CORTISOL OV/LAB EARLY/CHEMO 1 04/17* MASCI Start: 2025 End: 2025 ambulatory 2025 11:00 AM EDT Infusion Center Hematology/Oncology [address] [place] [address] Q3WK KEYTRUDA/LAB&OV 01/22* NO LATER THAN 230 WITH SAME DAY LAB Hematology/Oncolog y Comment on above: Q3WK KEYTRUDA/LAB&OV 01/22* NO LATER ILAN N 230 WITH SAME DAY LAB Start: 01-22-2025 End: 01-22-2025 [facility] Comment on above: CBC/CMP/UA(b/o)/TSH/T4/CORTISOL OV/LAB EARLY/CHEMO 1 * MASCI Start: 01-21-2025 End: 01-21-2025 Specialty Pharmacy 01/21/2025 8:00 AM EDT Specialty Pharmacy [facility] [address] [facility] [id number] [place] [address] Pharmacist, Specialtygroup [address] [facility] [place] [place] [address] Refill- Inlyta [30ds] confirm start date, 12/31?, call Kailee YOU (brother) exp. 04/14/25, CHRISTOPHER darnell exp 11/16/25 [facility] Comment on above: Refill- Inlyta [30ds] confirm start date , 12/31?, call Kailee YOU (brother) exp. 04/14/25, CHRISTOPHER darnell exp 11/16/25 Start: 01-18-2025 End: 01-18-2025 ambulatory 01/18/2025 11:30 AM EDT Infusion Center Hematology/Oncology [address] [place] [address] Wstr, Lab/[place] Formerly [facility] [address] [place] [address] QWK BP CHECK (FOR FIRST CYCLE OF TREATMENT)* Hematology/Oncolog y Comment on above: QWK BP CHECK (FOR FIRST CYCLE OF TREATME NT)* Start: 01-11-2025 End: 01-11-2025 ambulatory 01/11/2025 11:30 AM EDT Infusion Center Hematology/Oncology [address] [place] [address] Wstr, Lab/[place] [facility] [address] [place] [address] QWK BP CHECK (FOR FIRST CYCLE OF TREATMENT)* Hematology/Oncolog y Comment on above: QWK BP CHECK (FOR FIRST CYCLE OF TREATME NT)* Start: 01-04-2025 End: 01-04-2025 ambulatory [facility] Comment on above: CBC/CMP/UA BP CHECK/START Q3WK KEYTRUDA/LAB EARLY* NO LATER THAN 230 WITH SAME DAY LAB Start: 12-31-2024 End: 12-31-2024 Patient encounter procedure 12/31/2024 1:30 PM EDT Office Visit Geriatrics [address] [place] [address] Leticia Rao MD [address] [place] [address] Cancer of kidney, right (HCC) [C64.1] Geriatrics Comment on above: Cancer of kidney, right (HCC) [C64.1] Start: 12-28-2024 End: 12-28-2024 ambulatory 12/28/2024 10:30 AM EDT Infusion Center Hematology/Oncology [address] [place] [address] Wstr, Pai G[employer] Manager [facility] [address] [place] [address] CHEMO ED-INLYTA/KEYTRUDA* Hematology/Oncolog y Comment on above: CHEMO ED-INLYTA/KEYTRUDA* Start: 12-14-2024 Influenza vaccination Influenza Vaccine (#1) [place] [facility] Start: 12-11-2024 End: 12-11-2024 ambulatory 12/11/2024 1:30 PM EDT Infusion Center Hematology/Oncology [address] [place] [address] Wstr, Pai Gow Manager [facility] [address] [place], [place] [id number] CHEMO ED- Hematology/Oncolog y Comment on above: CHEMO ED- Start: 12-07-2024 End: 12-07-2024 Patient encounter procedure [facility] [place] Comment on above: 6 month follow up 6 month follow up/ w georges Start: 11-25-2024 End: 02-24-2025 Chronic hepatitis differentiation between hepatitis B and C virus panel - Serum or Plasma [facility] Comment on above: Expected: 11/25/2024, Expires: Start: 11-25-2024 End: 02-23-2025 Erythropoietin (EPO) [Units/volume] in Serum or Plasma [facility] Work Phone: Comment on above: Expected: 11/25/2024, Expires: Start: 11-25-2024 End: 11-25-2024 ambulatory 11/25/2024 10:10 AM EDT Visit (SP) Office Hematology/Oncology [address] [place], [place] [phone] Spencer Velarde, DO [address] [place], [place] [id number] OV/BMBX 11/05* Hematology/Oncolog y Comment on above: OV/BMBX 11/05* Start: 11-05-2024 End: 11-05-2024 Patient encounter procedure [facility] Comment on above: EGD/EUS, pt not on any blood thinners or diabetic meds to stop EGD/EUS, pt not on a ny blood thinners or diabetic meds to stop (pt brother advised time bumped back 1/2 hour to 10-jls) Start: 10-30-2024 End: 10-30-2024 ambulatory 10/30/2024 8:20 AM EDT Visit (SP) Office Hematology/Oncology [address] [place], [place] [phone] Spencer Velarde, DO [address] [place], [place] [id number] OV Hematology/Oncolog y Comment on above: OV Start: 10-23-2024 End: 10-23-2024 Patient encounter procedure 10/23/2024 1:00 PM EDT Appointment Ambulatory Surgery [address] [facility] [place] [phone] Latrice Reagan MD [address] [place], [place] [id number] Cancer of kidney, right (HCC) [C64.1] Ambulatory Surgery Comment on above: Cancer of kidney, right (HCC) [C64.1] Start: 09-17-2024 End: 09-17-2024 ambulatory 09/17/2024 11:30 AM EDT Visit (SP) Office Hematology/Oncology [address] [place] [address] Spencer Velarde, DO [address] [place] [address] 3 MO OV/LAB&CT SCAN 09/02* Hematology/Oncolog y Comment on above: 3 MO OV/LAB&CT SCAN 09/02* Start: 09-11-2024 End: 09-11-2024 ambulatory 09/11/2024 2:50 PM EDT Visit (SP) Office Hematology/Oncology [address] [place] [address] Spencer Velarde, DO [address] [place] [address] 3 MO OV/LAB&CT SCAN 09/02* Hematology/Oncolog y Comment on above: 3 MO OV/LAB&CT SCAN 09/02* Start: 09-07-2024 Covid-19 Vaccine ( season) Covid-19 Vaccine ( season) [facility] Start: 09-02-2024 End: 09-02-2024 Patient encounter procedure Cat Scan Comment on above: Cancer of kidney, right (HCC) [C64.1] Start: 09-02-2024 End: 09-02-2024 ambulatory 09/02/2024 1:00 PM EDT Results Only [place] Marcwn [facility] Laboratory [address] [place] [address] lab [place] [facility] Laboratory Comment on above: lab Start: 06-15-2024 End: 09-14-2024 Lipid 1996 panel - Serum or Plasma LIPID PANEL BASIC Lab Routine Hypercholesterolemia Expected: 06/15/2024, Expires: 09/14/2024 [facility] Work Phone: Comment on above: Expected: 06/15/2024, Expires: Start: 06-08-2024 End: 06-08-2024 Patient encounter procedure 06/08/2024 2:00 PM EST Office Visit Family Medicine [place] [address] [place] [address] Solis Lambert MD [address] [place] [address] 6 week follow up anxiety Family Medicine [place] Comment on above: 6 week follow up anxiety Start: 06-04-2024 End: 06-04-2024 ambulatory 06/04/2024 3:[address] 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] Cat Scan Comment on above: History of kidney cancer [Z85.528]; [place] stasis to mediastinal lymph node (HCC) [C77.1] Start: 05-28-2024 End: 05-28-2024 ambulatory 05/28/2024 12:10 PM EST Visit (SP) Office Hematology/Oncology [address] [place] [address] Spencer Velarde DO [address] [place] [address] ct chest 05/20/24 and 2MO OV /BMP * Hematology/Oncolog y Comment on above: ct chest 05/20/24 and 2MO OV /BMP * Start: 05-20-2024 End: 05-20-2024 Patient encounter procedure 05/20/2024 1:00 PM EST Appointment Cat Scan [address] [place] [phone] History of kidney cancer [Z85.528] Cat Scan Comment on above: History of kidney cancer [Z85.528] Start: 05-20-2024 End: 05-20-2024 ambulatory 05/20/2024 12:45 PM EST Results Only [place] Lieberman [facility] Laboratory [address] [place] [address] bmp [place] [facility] Laboratory Comment on above: bmp Start: 05-06-2024 End: 05-06-2024 Patient encounter procedure Radiation Oncology Comment on above: Location: [facility] Location: W-ON TREAT MENT VISIT Start: 05-05-2024 End: 05-05-2024 Patient encounter procedure 05/05/2024 2:30 PM EST Appointment Radiation Oncology [address] [place] [address] Location: [email or web address] Comment on above: Location: [facility] Start: 05-04-2024 End: 05-04-2024 Patient encounter procedure 05/04/2024 2:30 PM EST Appointment Radiation Oncology [address] [place] [id number] Location: [email or web address] Comment on above: Location: [facility] Start: 05-01-2024 End: 05-01-2024 Patient encounter procedure 05/01/2024 2:30 PM EST Appointment Radiation Oncology [address] [place] [address] Location: [email or web address] Comment on above: Location: [facility] Start: 04-30-2024 End: 04-30-2024 Patient encounter procedure 04/30/2024 2:30 PM EST Appointment Radiation Oncology [address] [place] [address] Location: [email or web address] Comment on above: Location: [facility] Start: 04-29-2024 End: 04-29-2024 Patient encounter procedure Radiation Oncology Comment on above: Location: [facility] Location: W-ON TREAT MENT VISIT Start: 04-28-2024 End: 04-28-2024 Patient encounter procedure Radiation Oncology Comment on above: Location: [email or web address] Location: W-ON TREAT MENT VISIT Start: 04-27-2024 End: 04-27-2024 Patient encounter procedure 04/27/2024 2:30 PM EST Appointment Radiation Oncology [address] [place] [address] Location: [email or web address] Comment on above: Location: [facility] Start: 04-24-2024 End: 04-24-2024 Patient encounter procedure 04/24/2024 2:30 PM EST Appointment Radiation Oncology [address] [place] [address] Location: [email or web address] Comment on above: Location: [facility] Start: 04-23-2024 End: 04-23-2024 Patient encounter procedure 04/23/2024 2:30 PM EST Appointment Radiation Oncology [address] [place], [place] [phone] Location: [email or web address] Comment on above: Location: [facility] Start: 04-22-2024 End: 04-22-2024 Patient encounter procedure Radiation Oncology Comment on above: Location: [facility] Location: W-ON TREAT MENT VISIT Start: 04-21-2024 End: 04-21-2024 Patient encounter procedure [facility] [place] Comment on above: 6 week follow up anxiety Location: [facility] Start: 04-20-2024 End: 04-20-2024 Patient encounter procedure 04/20/2024 2:30 PM EST Appointment Radiation Oncology [address] [place], [place] [id number] Location: [email or web address] Comment on above: Location: [facility] Start: 04-17-2024 End: 04-17-2024 Patient encounter procedure 04/17/2024 2:30 PM EST Appointment Radiation Oncology [address] [place] [address] Location: [email or web address] Comment on above: Location: [facility] Start: 04-16-2024 End: 04-16-2024 Patient encounter procedure 04/16/2024 2:30 PM EST Appointment Radiation Oncology [address] [place], [place] [phone] Aguilar Nava MD [address] [place], [place] [address] Location: [email or web address] Comment on above: Location: [facility] Start: 04-15-2024 Advance Directive Discussion Advance Directive Discussion [facility] Start: 04-15-2024 Medicare Advantage Annual Wellness Visit Medicare Advantage Annual Wellness Visit [facility] Start: 04-14-2024 End: 04-14-2024 Patient encounter procedure 04/14/2024 1:00 PM EST Appointment Radiation Oncology [address] [place], [place] [phone] Aguilar Nava MD [address] [place] [address] wants afternoons Radiation Oncology Comment on above: wants afternoons Start: 03-23-2024 End: 03-23-2024 Patient encounter procedure 03/23/2024 10:30 AM EST Office Visit Radiation Oncology [address] [place], [place] [phone] Aguilar Nava MD [address] [place], [place] [phone] NEW mediastinal lymph node Radiation Oncology Comment on above: NEW mediastinal lymph node Start: 03-19-2024 End: 06-18-2024 Erythropoietin (EPO) [Units/volume] in Serum or Plasma [facility] Comment on above: Expected: 03/19/2024, Expires: Start: 03-19-2024 End: 06-18-2024 MYELOPROLIFERATIVE NEOPLASM PANEL BLOOD [facility] Work Phone: Comment on above: Expected: 03/19/2024, Expires: Start: 03-19-2024 End: 03-19-2024 ambulatory 03/19/2024 12:10 PM EST Visit (SP) Office Hematology/Oncology [address], [place] [phone] Spencer Velarde DO [address] [place], [place] [phone] OV Hematology/Oncolog y Comment on above: OV Start: 03-10-2024 End: 03-10-2024 Patient encounter procedure 03/10/2024 2:40 PM EST Office Visit Family Medicine [place] [address] [place], [place] [phone] Solis Lambert MD [address] [place], [place] [phone] est care Family [facility] Comment on above: est care Start: 03-06-2024 End: 03-06-2024 Admission to same day surgery center 03/06/2024 9:30 AM EST - 03/06/2024 11:30 AM EST Surgery Admitting [address] [address] [place] [address] [place] [address] BRONCHOSCOPY FLEXIBLE ADULT Admitting Comment on above: BRONCHOSCOPY FLEXIBLE ADULT Start: 03-06-2024 End: 03-06-2024 [facility] incl fluor gdnce dx w/cell washg spx BRONCHOSCOPY FLEXIBLE ADULT Bronchiolar disease 03/06/2024 9:30 AM EST PULM LAB H23 Start: 03-06-2024 Subsequent hospital visit by physician 03/06/2024 9:30 AM EST Hospital Encounter Admitting [address] [address] [place] [address] [place] [address] Bronchiolar disease [J98.09] Admitting Comment on above: Bronchiolar disease [J98.09] Start: 02-25-2024 ambulatory Ambulatory Facility:[facility] Start: 02-18-2024 End: 05-19-2024 Basic metabolic 2000 panel - Serum or Plasma BASIC METABOLIC PANEL Lab Routine Pre-op testing Expected: 02/18/2024, Expires: 05/19/2024 [facility] Comment on above: Expected: 02/18/2024, Expires: Start: 02-18-2024 End: 05-19-2024 CBC W Auto Differential panel - Blood COMPLETE BLOOD COUNT AND DIFFERENTIAL Lab Routine Pre-op testing Expected: 02/18/2024, Expires: 05/19/2024 [facility] Work Phone: Comment on above: Expected: 02/18/2024, Expires: Start: 02-14-2024 End: 02-14-2024 ambulatory 02/14/2024 8:00 AM EDT Visit (SP) Office Hematology/Oncology [address] [place], [place] [phone] Spencer Velarde DO [address] [place], [place] [phone] 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* Hematology/Oncolog y Comment on above: 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* Start: 12-26-2023 End: 12-26-2023 Patient encounter procedure 12/26/2023 1:00 PM EDT Office Visit [facility] [address] [place] [address] Deng Foster MD [address] [facility] [address] [place] [address] 2 month follow up [facility] Comment on above: 2 month follow up Start: 12-15-2023 Covid-19 Vaccine () Covid-19 Vaccine () [facility] Start: 12-15-2023 Influenza vaccination Influenza Vaccine (#1) [facility] Start: 11-13-2023 End: 11-13-2023 ambulatory 11/13/2023 3:45 PM EDT OT/PT/Speech Visit [facility] [address] [place] [address] Amelia Flores, PT Lumbar spondylosis [M47.816] [facility] Comment on above: Lumbar spondylosis [M47.816] Start: 09-27-2023 Depression screening using PHQ-9 (Patient Health Questionnaire 9) score Depression Screening (PHQ-2/9) [facility] Start: 09-27-2023 Fall risk assessment Falls Risk Assessment [facility] Start: 07-15-2023 End: 07-15-2023 Patient encounter procedure 07/15/2023 1:00 PM EDT Office Visit [facility] Primary Care Physicians [address] [place] [address] Subhash Navas DO [address] [place] [address] [facility] Start: 04-15-2023 Advance Directive Discussion Advance Directive Discussion [facility] Start: 04-15-2023 Behavioral Health Screening Behavioral Health Screening [facility] Start: 02-09-2023 [facility] Start: 12-17-2022 End: 12-31-2022 COVID & INFLUENZA A/B & RSV NAAT, ROUTINE COVID & INFLUENZA A/B & RSV NAAT, ROUTINE Microbiology Routine URI, acute Expected: 12/17/2022, Expires: 12/31/2022 [facility] [facility] Work Phone: Comment on above: Expected: 12/17/2022, Expires: Start: 12-14-2022 COVID-19 Vaccine ( season) COVID-19 Vaccine () [facility] Start: 12-14-2022 Influenza vaccination [facility] Start: 11-22-2022 Screening for malignant neoplasm of breast Mammogram [facility] Comment on above: Postponed from 04/28/2019 (Patient Refus ed) Start: 09-26-2022 End: 09-26-2022 Patient encounter procedure 09/26/2022 2:00 PM EDT Office Visit [facility] [address] [place] [address] Subhash Navas DO [address] [place] [address] [facility] Start: 08-14-2022 Depression screening using PHQ-9 (Patient Health Questionnaire 9) score Depression Screening (PHQ-2/9) [facility] Start: 07-14-2022 COVID-19 VACCINE (5 - Moderna series) COVID-19 VACCINE (5 - Moderna series) [facility] Start: 05-31-2022 End: 05-31-2022 Patient encounter procedure 05/31/2022 Office Visit Primary Care Subhash Navas DO [address] [place] [address] [facility] Start: 04-15-2022 ADVANCE DIRECTIVE DISCUSSION ADVANCE DIRECTIVE DISCUSSION [facility] Start: 04-15-2022 DEPRESSION ASSESSMENT DEPRESSION ASSESSMENT [facility] Start: 12-14-2021 Influenza vaccination Sequential Influenza Vaccine (#1) [facility] Start: 11-22-2021 End: 11-22-2021 Patient encounter procedure 11/22/2021 Office Visit Primary Care Subhash Navas DO [address] [place] [address] [facility] Start: 08-15-2021 Depression screening using PHQ-9 (Patient Health Questionnaire 9) score Depression Screening (PHQ9) [facility] Start: 08-15-2021 Fall risk assessment Falls Risk Assessment [facility] Start: 08-15-2021 History and physical examination, annual for health maintenance Wellness Visit [facility] Start: 06-26-2021 COVID-19 Vaccine (4 - Booster for Moderna series) COVID-19 Vaccine (4 - Booster for Moderna series) [facility] Start: 06-20-2021 COVID-19 Vaccine (4 - Booster for Moderna series) COVID-19 Vaccine (4 - Booster for Moderna series) [facility] Start: 02-02-2021 End: 02-02-2021 Patient encounter procedure 02/02/2021 Office Visit Primary Care Subhash Navas DO [address] [facility] [address] [place] [address] [facility] Start: 01-17-2021 End: 01-17-2021 Patient encounter procedure 01/17/2021 Appointment Radiology Luisana Ram MD [address] [place] [address] [address] [place] [address] [facility] Start: 01-03-2021 End: 01-03-2021 Patient encounter procedure [facility] Start: 12-28-2020 End: 12-28-2020 Follow-up encounter 12/28/2020 Follow-Up General Surgery Bridgette Strickland DO [address] [facility] [address] [place] [address] [facility] Start: 12-22-2020 End: 12-22-2020 Patient encounter procedure 12/22/2020 Appointment Radiology Luisana Ram MD [address] [place] [address] [address] [place] [address] [facility] Start: 12-14-2020 Influenza vaccination Sequential Influenza Vaccine (#1) [facility] Start: 12-13-2020 End: 12-13-2020 Patient encounter procedure [facility] Start: 08-17-2020 COVID-19 Vaccine (3 - Moderna risk 3-dose series) COVID-19 Vaccine (3 - Moderna risk 3-dose series) [facility] Start: 03-02-2020 Adolescent depression screening assessment Depression Screening (PHQ9) [facility] Comment on above: Postponed from 1953 (Patient Refus ed) Start: 01-13-2020 Depression screening using PHQ-9 (Patient Health Questionnaire 9) score DEPRESSION SCREENING (PHQ9) [facility] Start: 12-15-2019 Influenza vaccination given Sequential Influenza Vaccine (#1) [facility] Start: 12-11-2019 Fall risk assessment Falls Risk Assessment [facility] Start: 05-14-2019 End: 05-14-2019 Office Visit 05/14/2019 Office Visit Primary Care Subhash Navas DO [address] [address] [phone] [facility] Start: 04-28-2019 Protein mass conc Mammogram [facility] Start: 04-28-2019 Screening for malignant neoplasm of breast Mammogram [facility] Start: 04-28-2019 Screening mammography Mammogram [facility] Start: 01-12-2019 End: 01-12-2019 Office Visit 01/12/2019 Office Visit Primary Care Subhash Navas DO [address] [address] [phone] [facility] Start: 12-14-2018 Influenza vaccination given SEQUENTIAL INFLUENZA VACCINE (#1) [facility] Start: 09-23-2018 End: 09-23-2018 Office Visit 09/23/2018 Office Visit Primary Care Subhash Navas DO [address] [facility] [address] [place] [address] [phone] [facility] Start: 06-02-2018 End: 06-02-2018 Office Visit 06/02/2018 Office Visit Primary Care Subhash Navas DO [address] [place] [address] [phone] [facility] Start: 05-26-2018 End: 05-26-2018 Ambulatory 05/26/2018 Office Visit Primary Care Subhash Navas DO [address] [place] [address] [phone] [facility] Start: 05-16-2018 Adult depression screening assessment DEPRESSION SCREENING (PHQ9) [facility] Start: 05-16-2018 Depression screening using PHQ-9 (Patient Health Questionnaire 9) score DEPRESSION SCREENING (PHQ9) [facility] Start: 05-16-2018 Fall risk assessment Steadi Fall Risk Assessment [facility] Start: 05-16-2018 Screening for substance abuse SUBSTANCE ABUSE SCREENING (AUDIT-C) [facility] Start: 05-16-2018 SUBSTANCE ABUSE SCREENING (AUDIT-C) SUBSTANCE ABUSE SCREENING (AUDIT-C) [facility] Start: 04-28-2018 End: 04-28-2018 Ambulatory [facility]amm[facility] Start: 01-20-2018 End: 01-20-2018 Ambulatory 01/20/2018 Office Visit Primary Care Subhash Navas DO [address] [facility] [address] [place] [address] [phone] [facility] Start: 12-14-2017 Influenza vaccination SEQUENTIAL INFLUENZA VACCINE (#1) [facility] Start: 12-03-2017 Fall risk assessment Steadi Fall Risk Assessment [facility] Work Phone: Start: 09-17-2017 Ambulatory 09/17/2017 Office Visit Primary Care Subhash Navas DO [address] [place] [address] [phone] [facility] Start: 02-14-2017 Ambulatory 02/14/2017 Appointment Radiology Subhash Navas DO [address] [place] [address] [phone] [facility] Start: 12-14-2016 SEQUENTIAL INFLUENZA VACCINE (#1) SEQUENTIAL INFLUENZA VACCINE (#1) [facility] Work Phone: Start: 03-22-2016 Administration of herpes zoster vaccine [facility] Start: 03-22-2016 ZOSTER VACCINES (2 of 3) ZOSTER VACCINES (2 of 3) [facility] Start: 01-26-2016 RSV Vaccine (1 - 1-dose 75+ series) RSV Vaccine (1 - 1-dose 75+ series) [facility] Start: 2006 BONE DENSITY BONE DENSITY [facility] Start: 2006 Fall risk assessment Steadi Fall Risk Assessment [facility] Start: 2006 Pneumococcal vaccination PNEUMOCOCCAL VACCINE AGE 65+ (1 of 2 - PCV13) [facility] Work Phone: Start: 2006 PNEUMOCOCCAL VACCINE AGE 65+ (1 of 2 - PCV13) PNEUMOCOCCAL VACCINE AGE 65+ (1 of 2 - PCV13) [facility] Work Phone: Start: 2006 Pneumococcal Vaccine: 65+ (1 of 1 - PCV) Pneumococcal Vaccine: 65+ (1 of 1 - PCV) [facility] Start: 2006 PNEUMOCOCCAL: 65+ (1 - PCV) PNEUMOCOCCAL: 65+ (1 - PCV) [facility] Start: 2006 Steadi Fall Risk Assessment Steadi Fall Risk Assessment [facility] Work Phone: Start: 2001 RSV Vaccine (1 - 1-dose 60+ series) RSV Vaccine (1 - 1-dose 60+ series) [facility] Start: 1991 SHINGRIX VACCINE (1 of 2) SHINGRIX VACCINE (1 of 2) [facility] Start: 1986 DIABETES SCREEN DIABETES SCREEN [facility] Start: 01-26-1960 Urine microalbumin profile [facility] Start: 1959 Anxiety Screening Anxiety Screening [facility] Start: 1959 Depression Screening Depression Screening [facility] Start: 1959 Hepatitis C antibody, confirmatory test Hepatitis C Screening [facility] Start: 1959 Hepatitis C screening Hepatitis C Screening [facility] Start: 1959 Spirometry Spirometry [facility] Start: 1953 Adolescent depression screening assessment Depression Screening (PHQ9) [facility] Start: 1953 Depression screening using PHQ-9 (Patient Health Questionnaire 9) score Depression Screening (PHQ9) [facility] Start: 1947 Pneumococcal Vaccine: Age 65+ (1 - PCV) Pneumococcal Vaccine: Age 65+ (1 - PCV) [facility] Start: 1947 Pneumococcal Vaccine: Age 65+ (1 of 2 - PPSV23) Pneumococcal Vaccine: Age 65+ (1 of 2 - PPSV23) [facility] Start: 1947 Pneumococcal Vaccine: Age 65+ (1 of 4 - PCV13) Pneumococcal Vaccine: Age 65+ (1 of 4 - PCV13) [facility] Start: 01-26-1944 History and physical examination, annual for health maintenance Wellness Visit [facility] Start: 1941 Colonoscopy COLONOSCOPY [facility] Work Phone: Start: 1941 Depression screening using PHQ-9 (Patient Health Questionnaire 9) score DEPRESSION SCREENING (PHQ9) [facility] Start: 1941 DEXA SCAN DEXA SCAN [facility] Work Phone: Start: 1941 Fall risk assessment Falls Risk Assessment [facility] Start: 1941 TETANUS EVERY 10 YR TETANUS EVERY 10 YR [facility] Work Phone: Start: 1941 Screening for osteoporosis DEXA SCAN [facility] Work Phone: Start: 1941 End: 1941 Tetanus vaccination [facility] End: 01-02-2019 CBC and Differential CBC and Differential Routine Essential hypertension 1 Occurrences starting 01/01/2018 until 01/02/2019 [facility] Comment on above: 1 Occurrences starting 01/01/2018 until 01/02/2019 End: 02-01-2018 CBC and Differential CBC and Differential Routine Essential hypertension 1 Occurrences starting 01/31/2017 until 02/01/2018 [facility] Work Phone: Comment on above: 1 Occurrences starting 01/31/2017 until 02/01/2018 End: 05-30-2018 Clostridium difficile toxin assay Clostridium difficile Toxin PCR [facility] for 1 Occurrences starting 05/30/2018 until 05/30/2018 [facility] Comment on above: [facility] 1 Occurrences starting until 05/30/2018 End: 08-16-2021 Complete blood count with white cell differential, manual CBC and Differential Lab Routine Essential hypertension 1 Occurrences starting 08/15/2020 until 08/16/2021 [facility] Comment on above: 1 Occurrences starting 08/15/2020 until 08/16/2021 End: 09-18-2023 Complete blood count with white cell differential, manual CBC and Differential Lab Routine Essential hypertension 1 Occurrences starting 09/17/2022 until 09/18/2023 [facility] Work Phone: Comment on above: 1 Occurrences starting 09/17/2022 until 09/18/2023 End: 01-02-2019 Comprehensive metabolic 2000 panel Comprehensive Metabolic Panel Routine Essential hypertension 1 Occurrences starting 01/01/2018 until 01/02/2019 [facility] Comment on above: 1 Occurrences starting 01/01/2018 until 01/02/2019 End: 02-01-2018 Comprehensive metabolic 2000 panel Comprehensive Metabolic Panel Routine Essential hypertension 1 Occurrences starting 01/31/2017 until 02/01/2018 [facility] Work Phone: Comment on above: 1 Occurrences starting 01/31/2017 until 02/01/2018 End: 08-16-2021 Comprehensive metabolic 2000 panel - Serum or Plasma Comprehensive Metabolic Panel Lab Routine Essential hypertension 1 Occurrences starting 08/15/2020 until 08/16/2021 [facility] Comment on above: 1 Occurrences starting 08/15/2020 until 08/16/2021 End: 09-18-2023 Comprehensive metabolic 2000 panel - Serum or Plasma Comprehensive Metabolic Panel Lab Routine Essential hypertension 1 Occurrences starting 09/17/2022 until 09/18/2023 [facility] Comment on above: 1 Occurrences starting 09/17/2022 until 09/18/2023 End: 07-03-2025 CT Abdomen and Pelvis W contrast IV CT ABD/PEL W IVCON Radiology Routine Cancer of kidney, right (HCC) Metastasis to mediastinal lymph node (HCC) 1 Occurrences starting 06/03/2024 until 07/03/2025 [facility] Work Phone: Comment on above: 1 Occurrences starting 06/03/2024 until 07/03/2025 End: 04-18-2025 CT Chest W contrast IV CT CHEST W IVCON Radiology Routine History of kidney cancer Metastasis to mediastinal lymph node (HCC) 1 Occurrences starting 03/19/2024 until 04/18/2025 [facility] Comment on above: 1 Occurrences starting 03/19/2024 until 04/18/2025 End: 06-19-2025 CT Chest W contrast IV CT CHEST W IVCON Radiology Routine Metastasis to mediastinal lymph node (HCC) History of kidney cancer 1 Occurrences starting 05/20/2024 until 06/19/2025 [facility] Work Phone: Comment on above: 1 Occurrences starting 05/20/2024 until 06/19/2025 CT Chest W contrast IV CT CHEST W IVCON Radiology Routine History of kidney cancer Metastasis to mediastinal lymph node (HCC) 05/20/2024 2:41 PM EST [facility] Work Phone: CT Chest W contrast IV CT CHEST W IVCON Radiology Routine Metastasis to mediastinal lymph node (HCC) History of kidney cancer 05/28/2024 2:07 PM EST [facility] Work Phone: End: 07-03-2025 CT Chest W contrast IV CT CHEST W IVCON Radiology Routine Cancer of kidney, right (HCC) Metastasis to mediastinal lymph node (HCC) 1 Occurrences starting 06/03/2024 until 07/03/2025 [facility] Comment on above: 1 Occurrences starting 06/03/2024 until 07/03/2025 CT Guidance for radi ation treatment of Unspecified body region CT SIM PLANNING RADIATION ONCOLOGY Radiology Routine Metastasis to mediastinal lymph node (HCC) Ordered: 03/30/2024 [facility] Work Phone: Comment on above: Ordered: 03/30/2024 CYTOLOGY NON-SALES OPERATIONS ASSISTANT CYTOLOGY NON-GY N Lab Routine Cancer of kidney, 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) Preop examination Mild intermittent asthma without complication (HCC) Hypercholesterolemia Release Upon Ordering for 1 Occurrences starting 11/05/2024 [facility] Work Phone: Comment on above: Release Upon Ordering for 1 Occurrences starting 11/05/2024 End: 02-17-2025 ECG COMPLETE ECG COMPLETE ECG STAT Pre-op testing 1 Occurrences starting 02/18/2024 until 02/17/2025 [facility] Comment on above: 1 Occurrences starting 02/18/2024 until 02/17/2025 End: 11-25-2025 ECG COMPLETE ECG COMPLETE ECG Routine Cancer of kidney, 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) 1 Occurrences starting 11/25/2024 until 11/25/2025 [facility] Comment on above: 1 Occurrences starting 11/25/2024 until 11/25/2025 End: 09-17-2025 EGD - THERAPEUTIC, EUS, OR TUBE INTERVENTIONS EGD - THERAPEUTIC, EUS, OR TUBE INTERVENTIONS Endoscopy Routine Cancer of kidney, 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) 1 Occurrences starting 09/17/2024 until 09/17/2025 [facility] Work Phone: Comment on above: 1 Occurrences starting 09/17/2024 until 09/17/2025 End: 05-30-2018 Gastrointestinal pathogens DNA and RNA panel - Stool by LION with non-probe detection Stool/GI PCR Panel (Includes Culture and Ova and Parasites) Routine Once for 1 Occurrences starting 05/30/2018 until 05/30/2018 [facility] Comment on above: Once for 1 Occurrences starting 05/30/19 until 05/30/2018 End: 08-16-2021 Lipid 1996 panel - Serum or Plasma Lipid Panel Lab Routine Hyperlipidemia, unspecified hyperlipidemia type 1 Occurrences starting 08/15/2020 until 08/16/2021 [facility] Comment on above: 1 Occurrences starting 08/15/2020 until 08/16/2021 End: 09-18-2023 Lipid 1996 panel - Serum or Plasma Lipid Panel Lab Routine Hyperlipidemia, unspecified hyperlipidemia type 1 Occurrences starting 09/17/2022 until 09/18/2023 [facility] Comment on above: 1 Occurrences starting 09/17/2022 until 09/18/2023 End: 01-02-2019 Lipid panel Lipid Panel Routine Hyperlipidemia, unspecified hyperlipidemia type 1 Occurrences starting 01/01/2018 until 01/02/2019 [facility] Comment on above: 1 Occurrences starting 01/01/2018 until 01/02/2019 End: 02-01-2018 Lipid panel Lipid Panel Routine Hyperlipidemia, unspecified hyperlipidemia type 1 Occurrences starting 01/31/2017 until 02/01/2018 [facility] Work Phone: Comment on above: 1 Occurrences starting 01/31/2017 until 02/01/2018 End: 02-14-2017 MG Breast - bilateral screening Mammography Screening Bilateral Routine Visit for screening mammogram Once for 1 Occurrences starting 02/14/2017 until 02/14/2017 [facility] Work Phone: MG Breast - bilatera l screening [facility] Work Phone: End: 04-28-2018 MG Breast - bilateral screening Mammography Screening Bilateral Routine Screening mammogram, encounter for Once for 1 Occurrences starting 04/28/2018 until 04/28/2018 [facility] Comment on above: Once for 1 Occurrences starting 04/28/19 19 until 04/28/2018 End: 05-30-2018 Microscopic observation Gram stain Nom (Unsp spec) Gram Stain (Fecal Leukocytes) Routine Once for 1 Occurrences starting 05/30/2018 until 05/30/2018 [facility] Comment on above: Once for 1 Occurrences starting 05/30/19 19 until 05/30/2018 Patient Education [facility] Work Phone: Patient referral [facility] Work Phone: Procedure on tissue specimen Tissue Exam Pathology and Cytology Routine Mass of subcutaneous tissue of back 12/13/2020 3:50 PM EDT [facility] Work Phone: End: 12-01-2019 Radiography of [id number] XR Abdomen AP Imaging Routine Calculus of kidney Once for 1 Occurrences starting 12/01/2019 until 12/01/2019 [facility] Comment on above: Once for 1 Occurrences starting 12/01/19 20 until 12/01/2019 Radiography of [id number] XR Abdomen AP Imaging Routine Calculus of kidney 12/01/2019 1:53 PM EDT [facility] ROUTINE FLU A/B + RSV ROUTINE FL U A/B + RSV Lab Routine URI, acute Ordered: 12/17/2022 [facility] Work Phone: Comment on above: Ordered: 12/17/2022 SARS-CoV-2 (COVID-19 ) RNA [Presence] in Respiratory specimen by LION with probe detection COVID NAAT, ROUTINE Microbiology Routine URI, acute Ordered: 12/17/2022 [facility] Work Phone: Comment on above: Ordered: 12/17/2022 Tissue Pathology bio psy report SURGICAL PATHOLOGY Lab Routine Cancer of kidney, 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) Preop examination Mild intermittent asthma without complication (HCC) Hypercholesterolemia Release Upon Ordering for 1 Occurrences starting 11/05/2024 [facility] Comment on above: Release Upon Ordering for 1 Occurrences starting 11/05/2024 End: 09-17-2018 XR Bone Density DEXA Axial XR Bone Density DEXA Axial Routine Menopausal syndrome 1 Occurrences starting 09/17/2017 until 09/17/2018 [facility] End: 11-22-2024 XR Lumbar spine Views W flexion and W extension XR LUMBAR MOTION 4V AP/LAT/ FLEX/EXT Radiology Routine Lumbar spondylosis 1 Occurrences starting 10/24/2023 until 11/22/2024 [facility] Work Phone: Comment on above: 1 Occurrences starting 10/24/2023 until 11/22/2024 XR Lumbar spine View s W flexion and W extension XR LUMBAR MOTION 4V AP/LAT/ FLEX/EXT Radiology Routine Lumbar spondylosis 10/24/2023 3:44 PM EDT [facility] Immunizations Immunization Date Immunization Notes Care Provider Fa cili 03-10-2024 pneumococcal Conjugate, unspecified formulation Solis Lambert MD Work Phone: [facility] Work Phone: 03-10-2024 COVID-19 vaccine, ag e 12+ yr ([employer]co[employer] COMIRNATY) Solis Lambert MD Work Phone: [facility] 03-10-2024 pneumococcal conjuga te (PCV20) vaccine, 20 valent (PREVNAR 20) Solis Lambert MD Work Phone: [facility] 01-24-2024 Seasonal trivalent influenza vaccine, adjuvanted, preservative free Solis Lambert MD Work Phone: [facility] 01-24-2024 influenza virus vaccine, unspecified formulation Solis Lambert MD Work Phone: [facility] 02-13-2023 influenza (aIIV4) vaccine, age 65+ yr, quadrivalent, PF (FLUAD QUAD) Solis Lambert MD Work Phone: [facility] 02-13-2023 Influenza IIV4 high dose 65 and Older Subhash Navas DO Work Phone: [facility] 02-13-2023 influenza virus vaccine, unspecified formulation Deng Foster MD Work Phone: [facility] 03-15-2022 PFIZER-BIONTECH COVID-19 VACCINE BIVALENT BOOSTER (12+) Subhash Navas DO Work Phone: [facility] 10-12-2021 zoster vaccine recombinant Subhash Choudhuryi DO Work Phone: [facility] 08-15-2021 zoster vaccine recombinant Subhash Marieumeerici DO Work Phone: [facility] 03-28-2021 Moderna SARS-CoV-2 Vaccination Subhash Navas DO Work Phone: [facility] 02-02-2021 Influenza IIV4 high dose 65 and Older Subhash Navas DO Work Phone: [facility] 02-02-2021 influenza, high dose seasonal, preservative-free Subhash Navas DO Work Phone: [facility] 07-20-2020 Moderna SARS-CoV-2 Vaccination Subhash Navas DO Work Phone: [facility] 06-22-2020 Moderna SARS-CoV-2 Vaccination Subhash Navas DO Work Phone: [facility] 01-30-2020 Seasonal, quadrivalent, recombinant, injectable influenza vaccine, preservative free Subhash Navas DO Work Phone: [facility] 03-06-2019 influenza, high dose seasonal, preservative-free Subhash Choudhuryi DO Work Phone: [facility] 01-20-2018 influenza, high dose seasonal, preservative-free; Translations: [INFLUENZA IIV3 HIGH DOSE 65 AND OLDER] Subhash Navas [facility] 01-31-2017 influenza, high dose seasonal, preservative-free; Translations: [INFLUENZA IIV3 HIGH DOSE 65 AND OLDER] [facility] Work Phone: 01-31-2017 flu vaccine tv 2017, 65yr up,, PF, (FLUZONE HIGH DOSE) syringe; Translations: [Flu Vaccine [id number](65yr Up)(Pf)180 McG/0.5 Ml Intramuscular Syringe] [facility] Work Phone: 01-26-2016 influenza, high dose seasonal, preservative-free; Translations: [INFLUENZA IIV3 HIGH DOSE 65 AND OLDER] [facility] 01-26-2016 zoster vaccine, live ; Translations: [ZOSTER (ZOSTAVAX)] [facility] Work Phone: 02-22-2014 influenza, seasonal, injectable [facility] Work Phone: Payers Date Payer Category Payer Self-pay 2022 Medicare (Managed Care) [employer] [id number] 2021 Medicare [id number]. [id number] 2018 Medicare [employer]AGE CHOICE PPO xxxxxxxxx 2018-Present xxxxxxxxx [id number]. [id number] 2018 Medicare [id number] [id number]. [id number] 2018 Medicare [id number] 2016 Medicare [id number] 2015 Unknown [id number] 2.16.840.1.863812.3.249.13 2006 Medicare [id number] 2.16.840.1.290116.3.249.13 2006 Medicare [id number] 1941 Unknown [id number] 2.840.1.432429.3.579.2. 902 1941 Unknown [id number] 2.840.1.324386.3.579.2. 903 1941 Unknown [id number] 2.840.1.348022.3.579.2. 903 1941 Unknown [id number] 2.840.1.259791.3.579.2. 900 1941 Unknown [id number] 2.840.1.587250.3.579.2. 900 1941 Unknown [id number] 2.840.1.806927.3.579.2. 903 1941 Unknown [id number] 2.16840.1.494339.3.579.2. 903 Medicare xxxxxxxxxx 2.840.1.627147.3.249.13 Medicare MEDICARE PART A B [id number] Unknown xxxxxxxxxxx 2.0.1.697487.3.249.13 Unknown [id number] 2.16840.1.121575.3.579.2. 462 Unknown [id number] 2.16840.1.442949.3.579.2. 462 Unknown [id number] 2.840.1.138146.3.579.2. 462 Unknown [id number] 2.16.840.1.446267.3.579.2. 462 Unknown [id number] 2.16.840.1.004161.3.579.2. 462 Unknown [id number] 2.16.840.1.807046.3.579.2. 462 Unknown [id number] 2.16.840.1.491753.3.579.2. 462 Unknown [id number] 2.16.840.1.930408.3.579.2. 462 Unknown [id number] 2.16.840.1.068982.3.579.2. 462 Unknown [id number] 2.16.840.1.867861.3.579.2. 462 Unknown [id number] 2.16.840.1.647049.3.579.2. 462 Unknown [id number] 2.16.840.1.441340.3.579.2. 462 Unknown [id number] 2.16.840.1.377456.3.579.2. 462 Unknown [id number] 2.16.840.1.945653.3.579.2. 462 Social History Date Type Detail Facility Start: 05-16-2017 End: 07-30-2023 Tobacco smoking status MDIS Never smoker [facility] Work Phone: Start: 1940 Sex Assigned At Not on file [facility] Work Phone: Start: 01-12-2019 End: 09-26-2022 Alcohol intake Current non-drinker of alcohol (finding) [facility] Start: 12-10-2018 End: 08-15-2020 History SDOH Social Connections Phone 5 [facility] Start: 12-10-2018 End: 08-15-2020 History SDOH Food Worry 1 [facility] Start: 08-04-2021 End: 11-22-2021 Exposure to SARS-CoV-2 (event) Not sure [facility] Start: 03-01-2020 End: 07-30-2023 Tobacco use and exposure Never used [facility] Start: 02-08-2020 End: 08-15-2020 History SDOH Transport Med 2 [facility] Start: 12-10-2018 End: 10-24-2023 Cigarette pack-years [facility] Start: 1940 Sex Assigned At Female [facility] Start: 08-15-2020 End: 10-24-2023 Social connection and isolation panel [facility] Start: 12-17-2022 Attends [employer] Not on file [facility] (I/We) worried wheth er (my/our) food would run out before (I/we) got money to buy more. Never true [facility] Start: 02-25-2018 Gender identity Identifies as female gender (finding) [facility] Start: 05-30-2018 Sexual orientation Heterosexual (finding) [facility] Start: 12-26-2022 End: 07-31-2023 Tobacco smoking status NHIS Tobacco smoking consumption unknown [facility] Work Phone: Start: 07-30-2023 End: 12-07-2024 Alcohol intake Lifetime non-drinker (finding) [facility] How often to you hav e a drink containing alcohol? Never [facility] Medical Equipment Procedure Code Equipment Code Equipment Origin al Text Equipment Identifier Dates Stent 6fr 26cm Ureteral Desha - Sn/A Start: 09-25-2016 Stent 6fr X 22-3 0cm Contour Valerie Length - [id number] Start: 11-07-2016 Stent 6fr 26cm Ureteral Desha - Sn/A Start: 09-25-2016 Stent 6fr X 22-3 0cm Contour Valerie Length - [id number] Start: 11-07-2016 Stent 6fr 26cm Ureteral Desha - Sn/A Start: 09-25-2016 Stent 6fr X 22-3 0cm Contour Valerie Length - [id number] Start: 11-07-2016 Stent 6fr 26cm Ureteral Desha - Sn/A Start: 09-25-2016 Stent 6fr X 22-3 0cm Contour Valerie Length - [id number] Start: 11-07-2016 Stent 6fr 26cm Ureteral Desha - Sn/A Start: 09-25-2016 Stent 6fr X 22-3 0cm Contour Valerie Length - [id number] Start: 11-07-2016 Stent 6fr 26cm Ureteral Desha - Sn/A Start: 09-25-2016 Stent 6fr X 22-3 0cm Contour Valerie Length - [id number] Start: 11-07-2016 Stent 6fr 26cm Ureteral Desha - Sn/A Start: 09-25-2016 Stent 6fr X 22-3 0cm Contour Valerie Length - [id number] Start: 11-07-2016 Stent 6fr 26cm Ureteral Desha - Sn/A Start: 09-25-2016 Stent 6fr X 22-3 0cm Contour Valerie Length - [id number] Start: 11-07-2016 Stent 6fr 26cm Ureteral Desha - Sn/A Start: 09-25-2016 Stent 6fr X 22-3 0cm Contour Valerie Length - [id number] Start: 11-07-2016 Stent 6fr 26cm Ureteral Desha - Sn/A Start: 09-25-2016 Stent 6fr X 22-3 0cm Contour Valerie Length - [id number] Start: 11-07-2016 Stent 6fr 26cm Ureteral Desha - Sn/A Start: 09-25-2016 Stent 6fr X 22-3 0cm Contour Valerie Length - [id number] Start: 11-07-2016 Stent 6fr 26cm Ureteral Desha - Sn/A Start: 09-25-2016 Stent 6fr X 22-3 0cm Contour Valerie Length - [id number] Start: 11-07-2016 Stent 6fr 26cm Ureteral Desha - Sn/A Start: 09-25-2016 Stent 6fr X 22-3 0cm Contour Valerie Length - [id number] Start: 11-07-2016 Stent 6fr 26cm Ureteral Desha - Sn/A Start: 09-25-2016 Stent 6fr X 22-3 0cm Contour Valerie Length - [id number] Start: 11-07-2016 Stent 6fr 26cm Ureteral Desha - Sn/A Start: 09-25-2016 Stent 6fr X 22-3 0cm Contour Valerie Length - [id number] Start: 11-07-2016 Stent 6fr 26cm Ureteral Desha - Sn/A Start: 09-25-2016 Stent 6fr X 22-3 0cm Contour Valerie Length - [id number] Start: 11-07-2016 Stent 6fr 26cm Ureteral Desha - Sn/A Start: 09-25-2016 Stent 6fr X 22-3 0cm Contour Valerie Length - [id number] Start: 11-07-2016 Stent 6fr 26cm Ureteral Desha - Sn/A [id number] Start: 09-25-2016 Stent 6fr X 22-3 0cm Contour Valerie Length - [id number] Start: 11-07-2016 Functional Status Date Assessment Result Facility 12-07-2024 Total score [AUDIT-C] 0 12/08/19 1:48 PM EDT Cate Foss MA [facility] Clinical Notes 08-15-2020 to 02-12-2025 Telephone Encounter - Heidi Klein RN - 12/28/2024 12:42 PM EDTTelephone Encounter - Heidi Klein RN - 12/28/2024 12:42 PM EDTHeidi Klein RN - 12/28/2024 11:23 AM EDTPatient Instructions Note Date & Type Note Facility 02-12-2025 Note [facility] 02-10-2025 Note [facility] 01-29-2025 Note [facility] 01-22-2025 Note [facility] 01-14-2025 Note [facility] 01-11-2025 Note HNO ID: [id number] Author: YEHUDA GARCIA RN Service: ? Author Type: Registered Nurse Type: Progress Notes Filed: 01/11/2025 12:17 Note Text: Pt here for BP check and it was WNL. [facility] 12-28-2024 Telephone encounter Note Patient does not have antiemetic. Pended Zogreyson. Heidi Klein RN [facility] 12-28-2024 Miscellaneous Notes Patient does not have antiemetic. Pended Chato. Heidi Klein RN documented in this encounter [facility] 12-28-2024 Note [facility] 12-28-2024 History of Present illness Narrative This was completed by phone. Pai Gow Manager Pre Chemo Patient identified by name and date of . YES Confirmed date and time for chemotherapy ? YES Other appointments (labs, imaging) discussed? 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 NO Described the infusion room and what to expect. (What to wear, what to bring [iPad, books] amount of time treatment can take, meals and CC options for food) YES Note: Discussed whether the patient can eat prior to labs and treatment. YES Who is driving you to and from treatment? Family member Discussed why it is important to bring someone with you. Yes, for the first treatment Resources discussed (music therapy, Art therapy, pet therapy, etc.) NO Education on chemotherapy (drug, side effects) discussed and that the patient will be receiving a C1D1 call within 7 days of treatment. YES Other topics discussed, interventions needed: Heidi Klein RN ORAL ANTI-CANCER AGENTS EDUCATION brother and patient called today for oral medication education of Inlyta for Kidney Cancer Anticipated/Scheduled start date: 01/04/25 READINESS TO LEARN Cognitive Ability: Alert and oriented Motivation to Learn: Interested Family Support: High - Very involved in pt care Instruction Provided to: Patient and Family member Patient learns best by: Multiple Methods Factors affecting learning: None Physical limitation affecting learning: None JUÁREZ ASSESSMENT: 1.) Verified that patient knows that the oral agents are for cancer and are taken by mouth. Yes 2.) Medication review completed during visit. Yes 3.) Patient is able to swallow pills. Yes 4.) Patient is able to read the drug label/information. Yes 5.) Patient is able to open the medication bottles and packages. Yes 6.) Has patient taken other pills for cancer? No 7.) Is patient experiencing any symptoms that would affect their ability to keep down pills, for example nausea or vomiting? No 8.) Verified that patient understands prescription delivery, benefit investigation and refill process. Yes DRUG-SPECIFIC EDUCATION: 1.) Verified patient knows the drug name. Yes, Inlyta 2.) Verified patient understands the dose and schedule of oral anti cancer agent. Yes 3.) Verified patient knows what to do if a medication dose is missed. Yes 4.) Verified patient understands where to store the drug. Yes 5.) Verified patient understands potential side effects and how to manage them. Yes 6.)Verified patient understands handling precautions of oral anti cancer agent. Yes 7.) Verified patient was given written instructions and understands when and whom to call with questions. Yes 8.) Verified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 Prominent tracer concentration is noted in the anterior aspect of the oral cavity in proximity to dental hardware placement most consistent with a component of metallic reconstruction artifact. CHEST: Enhanced tracer concentration is defined in the right upper paratracheal lymph node distribution generating a calculated maximal standard uptake value of 2.3. Pertinent chest CT findings are as follows. There is atherosclerotic calcification defined in the thoracic aorta without evidence of dilatation-aneurysm formation. Coronary arterial calcification is observed. Mediastinal and bilateral axillary soft tissue densities are non-glucose avid. There are no parenchymal densities-nodules defined in the right and left hemithorax with quantitatively significant increased FDG uptake. ABDOMEN/PELVIS: Facilitated uptake is noted in the right inguinal region in a single nodular presentation. The calculated maximal standard uptake value is 4.2. The maximal axial diameter of the corresponding soft tissue density is 9.7-mm. Normal physiologic distribution of the radiopharmaceutical is apparent in the hepatic (3.9) and splenic parenchyma, left renal unit, bladder and visualized intestinal tract. Pertinent abdomen and pelvis CT findings are as follows. 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 Colonic diverticula are defined without evidence of diverticulitis. Bilateral adnexal cyst formation is demonstrated. Cholelithiasis is demonstrated. There is atherosclerotic calcification defined in the abdominal aorta without evidence of dilatation-aneurysm formation. Pelvic arterial calcification is observed. SKELETAL: Degenerative changes are noted in the cervical, thoracic and lumbar spine without evidence of increased radiopharmaceutical concentration. PET/PET/CT Tumor Base -Thigh Init IMPRESSION: 1. The increase in radiopharmaceutical concentration defined in the right inguinal region may necessitate histopathologic analysis secondary to the quantitative degree of uptake. 2. Facilitated FDG concentration noted in the precarinal mediastinum to the right of the midline does not fulfill quantitative criteria for malignant transformation. (Alirio et al, Journal of Clinical Oncology 16:2142, 1998). Bronchoscopy with EBUS. Cytology: OPERATION: EBUS with TBNA PRE-OP DIAGNOSIS: Endobronchial ultrasound TISSUE SUBMITTED: A-F- 4R EBUS DIAGNOSIS CYTOLOGY A. EBUS, TBNA, site 4R #1 (smears): - Category: Atypical. - Scant atypical cells. B. EBUS, TBNA, site 4R #2 (smears): - Category: Suspicious for malignancy. - Atypical cells, suspicious for non-small cell carcinoma. See note. NOTE: The smears show tissue fragments of epithelial cells with large, moderately pleomorphic nuclei with prominent single round nucleoi and vacuolated cytoplasm. The nuclei are crowded and overlapped. These epithelial cells lack cilia. The features are suspicious for non-small cell carcinoma. Clinical and radiographic correlation is recommended. C. EBUS, TBNA, site 4R #3 (smears): - Category: Benign - Rare respiratory epithelial cells and lymphocytes. D. EBUS, TBNA, site 4R #4 (smears): - Category: Benign - Rare respiratory epithelial cells and lymphocytes. E. EBUS, TBNA, site 4R #5 (smears): - Category: Benign - Rare respiratory epithelial cells and lymphocytes. F. EBUS, TBNA, site 4R fluid (cytospin and cellblock): - Category: Benign - Rare respiratory epithelial cells and lymphocytes COMMENT The specimen is evaluated at the time of biopsy by Dr. Villanueva. Immediate Evaluation = Rapid onsite evaluation: A: Negative for malignant cells. A few lymphocytes are noted. Respiratory epithelial cells are noted B: Negative for malignant cells. Predominantly respiratory epithelial cells noted. C: Negative for malignant cells. Predominantly respiratory epithelial cells noted. D: Bloody specimen. Negative for malignant cells. Rare epithelial cells. E: Negative for malignant cells. Lymphocytes are noted. Rare respiratory epithelial cells. CONSULTATION REPORT FROM [facility]: INTERPRETATION: The specimen is sent to [facility] for expert opinion, reviewed by Dr. Hernandez and the above diagnosis is rendered. The complete report is viewable in the patient's EMR As per EMR, the patient has history of right kidney cancer, s/p nephrectomy. Clinical correlation and appropriate follow up are necessary. Initial consultation 02/14/2024: She feels well in general. Moved from [facility] to [place] to be closer to her brother and [id number]. However she lives independently and is capable of ADLs and all IADLs. Cough is resolved. Has some mild chest pain. OV 03/19/2024: Underwent bronchoscopy on 03/09. Biopsies obtained from subcarinal lymph node that measured [address] 4-hour lymph node was 18.3 mm. 13 samples were obtained. Pathology: FINAL DIAGNOSIS A. Lymph node, 4R, biopsy: - Metastatic carcinoma, consistent with renal origin (see comment). Diagnosis Comment A. Immunohistochemical stains show that the tumor cells are positive for CAM5.2 and PAX8 and are negative for TTF-1 and p40. These findings are consistent with the above diagnosis. Completed RT 05/06/2024. Presents for ongoing oncologic management. Interim history: She underwent EGD/EUS biopsy of 2 pancreatic lesions. Pathology demonstrated atypical cells suspicious for renal cell carcinoma. Colonoscopy as well. She was noted to have a tubular adenoma. She is out of Singulair. The other night she woke up wheezing and coughing and had a fairly bad attack of asthma. She was able to use her rescue inhaler. She plans on getting a refill of Singulair when she sees her PCP later this month. No chest pain or pressure. No cardiac history of which she is aware. PAST MEDICAL HISTORY Diagnosis Date SALMA (acute kidney injury) Asthma (HCC) Cholelithiasis Chronic lower back pain Diverticulosis Environmental and seasonal allergies Generalized anxiety disorder History of renal cell cancer 2009 Hypercholesterolemia Hypertension IBS (irritable bowel syndrome) Macular degeneration Mediastinal mass Multiple renal cysts Onychomycosis PAST SURGICAL HISTORY Procedure Laterality Date PAST SURGICAL HISTORY OF 03/06/2024 bronchoscopy with biopsy of mediastinal mass REMV KIDNEY/URETER,SAME INCIS Right VAGINAL HYSTERECTOMY metoprolol succinate ER (TOPROL XL) 25 mg 24 hr tablet Take 12.5 mg by mouth. (Patient taking differently: Take 12.5 mg by mouth once daily.) albuterol HFA (PROVENTIL HFA, VENTOLIN HFA) 90 mcg/actuation inhaler Inhale 2 Puffs as instructed every 6 hours as needed for wheezing/shortness of breath. pravastatin (PRAVACHOL) 40 mg tablet Take 1 tablet by mouth once daily. PARoxetine (PAXIL) 40 mg tablet Take 1 tablet by mouth once daily. montelukast (SINGULAIR) 10 mg tablet Take 1 tablet by mouth once daily. vit A/vit C/vit E/zinc/copper (ICAPS AREDS ORAL) Take 1 tablet by mouth two times a day. ALLERGIES Allergen Reactions Cat Dander Hives Zanaflex [Tizanidin* Hives Latex Rash Social History Tobacco Use Smoking status: Never Smokeless tobacco: Never Vaping Use Vaping status: Never Used Substance Use Topics Alcohol use: Never Drug use: Never FAMILY HISTORY Problem Relation Age of Onset Macular Degen Mother Hypertension Mother Heart Attack Father Hyperlipidemia Father Hyperlipidemia Sister Hypertension Sister Hyperlipidemia Brother Macular Degen Brother REVIEW OF SYSTEMS: Neuro: No HINTON. HEENT: No recent change in voice, vision or hearing. Resp: No cough, wheeze and hemoptysis. No shortness of breath at rest. CVS: No exertional chest pain, PND, orthopnea and LE edema. GI: No reflux, n/v, change in bowel habits or abdominal pain. : No dysuria or gross hematuria. Endo: No hot flashes. No polyuria and polydipsia. No heat and cold intolerance. Musculoskeletal: No bone, back, joint and muscular pain. Derm: No current rash. No history of jaundice or diffuse pruritis. Heme: No unusual bleeding and unexplained bruising. Psych: Normal mood. PHYSICAL EXAM: Vitals: Blood pressure 103/66, pulse 101, temperature 36.4 C (97.6 F), temperature source Temporal, weight 64 kg (141 lb), SpO2 92%. Very anxious, but well-appearing and in no acute distress. EYES: Sclerae are anicteric bilaterally. LYMPHATIC: There is no palpable adenopathy. RESPIRATORY: Wheezes all throughout. CARDIOVASCULAR: Rhythm is regular. ABDOMEN: The abdomen is nondistended. Extremities: No swelling or edema. 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 -Suspect this metastatic deposit in the 4R node has been there quite a while. - I reviewed the pathology with her and her brother in detail. Most likely metastatic renal cell carcinoma given the findings on pathology and the natural history of her disease. I again presented the option of continued watchful waiting but she is very uncomfortable without idea and desires treatment. I therefore presented the option of axitinib with pembrolizumab. -I discussed the rationale, logistics, potential risks (including but not limited to hypertension, increased risk of cardiovascular events, increased risk of bleeding events, autoimmune side effects and the small potential for as a consequence of severe toxicity/complications of therapy), benefits and alternatives, as well as the personnel involved in the administration of axitinib with pembrolizumab. I answered her questions in detail and she verbalized understanding and agreed with the recommended therapy. Please see the electronic consent document for details of doses and schedule. Plan: - EKG today. - Rx for axitinib. Will start at 2 mg every 12 hours given age. - Baseline lab work today. - Plan to start therapy once she receives axitinib. - Repeat imaging about 3 months after starts therapy. - Refilled Singulair. Portions of this documentation were copied and pasted from my previous office visit note dated 09/17/2024 in order to provide a cohesive continuity of the history. The note has been reviewed and edited and updated as necessary. Spencer Velarde DO documented in this encounter [facility] 11-05-2024 History and physical note HISTORY AND PHYSICAL EXAMINATION SERVICE DATE: 11/05/2024 SERVICE TIME: 9:09 AM PRIMARY CARE PHYSICIAN: Solis Lambert MD REASON FOR VISIT: Deangelo Beach is a 84 year old female who is scheduled for EGD at the request of Dr. Spencer Velarde for routine H&P. The reason for this visit is to perform a comprehensive review of the patient's past medical history, assess their current health status and obtain any additional testing required based on anesthesia guidelines. We will also identify any potential anesthesia problems or contraindications to the planned procedure. 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 Patient had h/o RCC s/p right nephrectomy in 2009, recent abdominal pelvic CT found 3 pancreatic lesions and lymph node biopsy with bronchoscopy found metastatic deposit. Here to have EUS with potential biopsy. Patient denies any N/V, diarrhea or constipation. Denies any abdominal pain. Denies any melena, hematochezia, or hematemesis. Patient has no known family history of Esophageal cancer, Colon cancer or other Gastric cancer. Patient agreed to planned procedure. METS: Climb a flight of stairs or walk up a hill (5.50 METs) Patient denies any CP/SOB with above activity. PAST MEDICAL HISTORY Diagnosis Date SALMA (acute kidney injury) Asthma (HCC) Cholelithiasis Chronic lower back pain Diverticulosis Environmental and seasonal allergies Generalized anxiety disorder History of renal cell cancer 2009 Hypercholesterolemia Hypertension IBS (irritable bowel syndrome) Macular degeneration Mediastinal mass Multiple renal cysts Onychomycosis PAST SURGICAL HISTORY Procedure Laterality Date PAST SURGICAL HISTORY OF 03/06/2024 bronchoscopy with biopsy of mediastinal mass REMV KIDNEY/URETER,SAME INCIS Right VAGINAL HYSTERECTOMY FAMILY HISTORY Problem Relation Age of Onset Macular Degen Mother Hypertension Mother Heart Attack Father Hyperlipidemia Father Hyperlipidemia Sister Hypertension Sister Hyperlipidemia Brother Macular Degen Brother SOCIAL HISTORY: Social History Tobacco Use Smoking status: Never Smokeless tobacco: Never Vaping Use Vaping status: Never Used Substance Use Topics Alcohol use: Never Drug use: Never Prior to Admission medications as of 11/05/24 0917 Medication Sig Last Dose Taking metoprolol succinate ER (TOPROL XL) 25 mg 24 hr tablet Take 12.5 mg by mouth. 11/05/2024 at 5:00 AM Yes albuterol HFA (PROVENTIL HFA, VENTOLIN HFA) 90 mcg/actuation inhaler Inhale 2 Puffs as instructed every 6 hours as needed for wheezing/shortness of breath. pravastatin (PRAVACHOL) 40 mg tablet Take 1 tablet by mouth once daily. PARoxetine (PAXIL) 40 mg tablet Take 1 tablet by mouth once daily. montelukast (SINGULAIR) 10 mg tablet Take 1 tablet by mouth once daily. vit A/vit C/vit E/zinc/copper (ICAPS AREDS ORAL) Take 1 tablet by mouth two times a day. No medication comments found. ALLERGIES Allergen Reactions Cat Dander Hives Zanaflex [Tizanidin* Hives Latex Rash REVIEW OF SYSTEMS: PAIN ASSESSMENT: Pain Pain Level: 0 Pain Assessment: Assessment Tool: Verbal (Numeric Rating or Visual Analog Scale) General: Denies fever, chills, and unexpected weight change. Neuro: Denies dizziness and headaches. Respiratory: Positive for Asthma. No history of current cough or dyspnea, or pneumonia in the past 6 weeks. Cardiovascular: Positive for: HLD. No history of angina, CHF, NC, cardiac surgery or stents. Denies chest pain or palpations. GI: See HPI. : Denies dysuria. Endocrine: No history of diabetes or thyroid conditions. + pancreatic lesions Hematology: Denies history of bleeding or clotting disorder. No known autoimmune disorders. Psych: Denies anxiety/depression. Musculoskeletal: Denies joint pain and swelling. Skin: Denies open sores and rashes. Objective PHYSICAL EXAM: VITALS: BP 146/77 Pulse 80 Temp (Src) 98.6 (Temporal) Resp 26 SpO2 98% O2 Therapy: Room Air General: NAD. Cooperative. Skin: Skin is warm, no rashes, and no open sores. HEENT: Normocephalic. Cardiovascular: Normal S1 & S2. No murmur. Lungs: CTA Bilaterally. No respiratory distress. Abdomen: Soft. Pos BS x4quad Extremities: No edema. Neurological: Alert and oriented to person, place, and time. Pulses: radial pulses +2 Diagnostic tests reviewed for today's visit: Lab Value Units Date High Low HB 16.0 g/dL 09/02/2024 15.5 11.5 HCT 47.4 % 09/02/2024 46.0 36.0 WBC 6.13 k/uL 09/02/2024 11.00 3.70 PLT 206 k/uL 09/02/2024 400 150 NA 137 mmol/L 09/02/2024 144 136 K 4.2 mmol/L 09/02/2024 5.1 3.7 GLUC 98 mg/dL 09/02/2024 99 74 BUN 23 mg/dL 09/02/2024 21 7 CREAT 0.91 mg/dL 09/02/2024 0.96 0.58 PTSEC No results within date range. INR No results within date range. APTT No results within date range. ALT 10 U/L 09/02/2024 38 7 AST 14 U/L 09/02/2024 35 13 TBILI 0.4 mg/dL 09/02/2024 1.3 0.2 TSH No results within date range. Lab Value Units Date High Low HCGQT No results within date range. UHCG No results within date range. HCG, BODY* No results within date range. Lab Value Units Date High Low ABORHD No results within date range. ABSCREEN No results within date range. 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 Denies hospitalization or pneumonia in the last 6 weeks. 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 PLAN Planned Procedure: EGD The Following Tests/Procedures Have Been Initiated: IV start and Maintenance fluid for the procedure. ANESTHESIA FINDINGS: Significant Anesthesia Considerations: None Planned Anesthetic: MAC Instructions Given to Patient: Patient given verbal preop instructions and voices comprehension and compliance. I spent a total of 20 minutes on the date of the service which included preparing to see the patient, [id number] patient care, completing clinical documentation, obtaining and/or reviewing separately obtained history, and performing a medically appropriate examination. SIGNATURE: Maria T Amado APRN.CNP PATIENT NAME: Deangelo Beach DATE: November 05, 2024 TIME: 9:09 AM PAGER/CONTACT #: [facility] 11-05-2024 History and physical note HISTORY AND PHYSICAL EXAMINATION SERVICE DATE: 11/05/2024 SERVICE TIME: 9:09 AM PRIMARY CARE PHYSICIAN: Solis Lambert MD REASON FOR VISIT: Deangelo Beach is a 84 year old female who is scheduled for EGD at the request of Dr. Spencer Velarde for routine H&P. The reason for this visit is to perform a comprehensive review of the patient's past medical history, assess their current health status and obtain any additional testing required based on anesthesia guidelines. We will also identify any potential anesthesia problems or contraindications to the planned procedure. 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 Patient had h/o RCC s/p right nephrectomy in 2009, recent abdominal pelvic CT found 3 pancreatic lesions and lymph node biopsy with bronchoscopy found metastatic deposit. Here to have EUS with potential biopsy. Patient denies any N/V, diarrhea or constipation. Denies any abdominal pain. Denies any melena, hematochezia, or hematemesis. Patient has no known family history of Esophageal cancer, Colon cancer or other Gastric cancer. Patient agreed to planned procedure. METS: Climb a flight of stairs or walk up a hill (5.50 METs) Patient denies any CP/SOB with above activity. PAST MEDICAL HISTORY Diagnosis Date SALMA (acute kidney injury) Asthma (HCC) Cholelithiasis Chronic lower back pain Diverticulosis Environmental and seasonal allergies Generalized anxiety disorder History of renal cell cancer 2009 Hypercholesterolemia Hypertension IBS (irritable bowel syndrome) Macular degeneration Mediastinal mass Multiple renal cysts Onychomycosis PAST SURGICAL HISTORY Procedure Laterality Date PAST SURGICAL HISTORY OF 03/06/2024 bronchoscopy with biopsy of mediastinal mass REMV KIDNEY/URETER,SAME INCIS Right VAGINAL HYSTERECTOMY FAMILY HISTORY Problem Relation Age of Onset Macular Degen Mother Hypertension Mother Heart Attack Father Hyperlipidemia Father Hyperlipidemia Sister Hypertension Sister Hyperlipidemia Brother Macular Degen Brother SOCIAL HISTORY: Social History Tobacco Use Smoking status: Never Smokeless tobacco: Never Vaping Use Vaping status: Never Used Substance Use Topics Alcohol use: Never Drug use: Never Prior to Admission medications as of 11/05/24 0917 Medication Sig Last Dose Taking metoprolol succinate ER (TOPROL XL) 25 mg 24 hr tablet Take 12.5 mg by mouth. 11/05/2024 at 5:00 AM Yes albuterol HFA (PROVENTIL HFA, VENTOLIN HFA) 90 mcg/actuation inhaler Inhale 2 Puffs as instructed every 6 hours as needed for wheezing/shortness of breath. pravastatin (PRAVACHOL) 40 mg tablet Take 1 tablet by mouth once daily. PARoxetine (PAXIL) 40 mg tablet Take 1 tablet by mouth once daily. montelukast (SINGULAIR) 10 mg tablet Take 1 tablet by mouth once daily. vit A/vit C/vit E/zinc/copper (ICAPS AREDS ORAL) Take 1 tablet by mouth two times a day. No medication comments found. ALLERGIES Allergen Reactions Cat Dander Hives Zanaflex [Tizanidin* Hives Latex Rash REVIEW OF SYSTEMS: PAIN ASSESSMENT: Pain Pain Level: 0 Pain Assessment: Assessment Tool: Verbal (Numeric Rating or Visual Analog Scale) General: Denies fever, chills, and unexpected weight change. Neuro: Denies dizziness and headaches. Respiratory: Positive for Asthma. No history of current cough or dyspnea, or pneumonia in the past 6 weeks. Cardiovascular: Positive for: HLD. No history of angina, CHF, NC, cardiac surgery or stents. Denies chest pain or palpations. GI: See HPI. : Denies dysuria. Endocrine: No history of diabetes or thyroid conditions. + pancreatic lesions Hematology: Denies history of bleeding or clotting disorder. No known autoimmune disorders. Psych: Denies anxiety/depression. Musculoskeletal: Denies joint pain and swelling. Skin: Denies open sores and rashes. Objective PHYSICAL EXAM: VITALS: BP 146/77 Pulse 80 Temp (Src) 98.6 (Temporal) Resp 26 SpO2 98% O2 Therapy: Room Air General: NAD. Cooperative. Skin: Skin is warm, no rashes, and no open sores. HEENT: Normocephalic. Cardiovascular: Normal S1 & S2. No murmur. Lungs: CTA Bilaterally. No respiratory distress. Abdomen: Soft. Pos BS x4quad Extremities: No edema. Neurological: Alert and oriented to person, place, and time. Pulses: radial pulses +2 Diagnostic tests reviewed for today's visit: Lab Value Units Date High Low HB 16.0 g/dL 09/02/2024 15.5 11.5 HCT 47.4 % 09/02/2024 46.0 36.0 WBC 6.13 k/uL 09/02/2024 11.00 3.70 PLT 206 k/uL 09/02/2024 400 150 NA 137 mmol/L 09/02/2024 144 136 K 4.2 mmol/L 09/02/2024 5.1 3.7 GLUC 98 mg/dL 09/02/2024 99 74 BUN 23 mg/dL 09/02/2024 21 7 CREAT 0.91 mg/dL 09/02/2024 0.96 0.58 PTSEC No results within date range. INR No results within date range. APTT No results within date range. ALT 10 U/L 09/02/2024 38 7 AST 14 U/L 09/02/2024 35 13 TBILI 0.4 mg/dL 09/02/2024 1.3 0.2 TSH No results within date range. Lab Value Units Date High Low HCGQT No results within date range. UHCG No results within date range. HCG, BODY* No results within date range. Lab Value Units Date High Low ABORHD No results within date range. ABSCREEN No results within date range. 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 Denies hospitalization or pneumonia in the last 6 weeks. 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 PLAN Planned Procedure: EGD The Following Tests/Procedures Have Been Initiated: IV start and Maintenance fluid for the procedure. ANESTHESIA FINDINGS: Significant Anesthesia Considerations: None Planned Anesthetic: MAC Instructions Given to Patient: Patient given verbal preop instructions and voices comprehension and compliance. I spent a total of 20 minutes on the date of the service which included preparing to see the patient, [id number] patient care, completing clinical documentation, obtaining and/or reviewing separately obtained history, and performing a medically appropriate examination. SIGNATURE: Maria T Amado APRN.CNP PATIENT NAME: Deangelo Beach DATE: November 05, 2024 TIME: 9:09 AM PAGER/CONTACT #: documented in this encounter [facility] 10-28-2024 Note [facility] 10-28-2024 History of Present illness Narrative POPULATION HEALTH NAVIGATION OUTREACH Action/FYI Patient outreach for HM due; AWV. Spoke with brother and added wellness on to upcoming appointment Reason for Outreach Care Gap/HCC or Scheduling Wellness Visits Care Gaps due: Medicare Annual Wellness Visit Patient Contacted: Spoke to patient/parent/or legal guardian Patient identified by name and : Yes Care Gap/HCC/Scheduling Wellness actions taken: Patient scheduled/pended orders: Medicare Annual Wellness Visit 11/05/[address] [facility] with LATRICE REAGAN - EGD/EUS, pt not on any blood thinners or diabetic meds to stop (pt brother advised time bumped back 1/2 hour to 10-jls) 11/25/2024 in [facility] with SPENCER VELARDE - OV/BMBX 11/05* 12/07/2024 in [facility] with SOLIS LAMBERT - 6 month follow up/ wellness Navigation Signature: Marialuisa Yates October 28, 2024 12:35 PM documented in this encounter [facility] 10-08-2024 Telephone encounter Note Patient's brother called to schedule her EGD/EUS with Dr Reagan. Scheduled for 11/05/24. [facility] 10-08-2024 Miscellaneous Notes Patient's brother called to schedule her EGD/EUS with Dr Reagan. Scheduled for 11/05/24. documented in this encounter [facility] 10-07-2024 Telephone encounter Note I spoke to GI in [place]. She said we need to speak to Dr Geovani Cisneros's battery tester to get the EGD/EUS scheduled at [place]. her number is [phone]. Ghazal Leavitt LPN [facility] 10-07-2024 Miscellaneous Notes I spoke to GI in [place]. She said we need to speak to Dr Geovani Cisneros's battery tester to get the EGD/EUS scheduled at [place]. her number is [phone]. Ghazal Leavitt LPN Received message back from [place] [facility]. -We can not take that order. If he wants an FNA he needs to place an order for one done by IR. and the location of what he wants FNA okay to have at [place]? Would be closer for patient. Sent secure chat to [place] [facility] to see if they can assist. Please assist in rescheduling where available to do test. Ghazal Leavitt LPN Patient's brother called stating he received call informing below. Ordered by Dr. Velarde. Please advise. It was brought to my attention today that this patient is scheduled in [place] for an EUS with Dr Reagan on 10/23. We do not perform those tests in [place]. I called pt to notify her of cancellation and had to leave a message. documented in this encounter [facility] 10-07-2024 Telephone encounter Note Received message back from [place] [facility]. -We can not take that order. If he wants an FNA he needs to place an order for one done by IR. and the location of what he wants FNA okay to have at [place]? Would be closer for patient. [facility] Work Phone: 10-07-2024 Telephone encounter Note Sent secure chat to [place] [facility] to see if they can assist. [facility] 10-07-2024 Telephone encounter Note Please assist in rescheduling where available to do test. Ghazal Leavitt LPN [facility] 10-07-2024 Telephone encounter Note Patient's brother called stating he received call informing below. Ordered by Dr. Velarde. Please advise. [facility] 10-07-2024 Telephone encounter Note It was brought to my attention today that this patient is scheduled in [place] for an EUS with Dr Reagan on 10/23. We do not perform those tests in [place]. I called pt to notify her of cancellation and had to leave a message. [facility] 09-17-2024 Note [facility] 09-17-2024 History of Present illness Narrative Oncologic problem(s): 1) Metastatic recurrence of renal cell carcinoma. HPI: The patient is an 84 yo female with PMH significant for RCC. The patient developed a cough in late November. She went to urgent care. Evidently she was directed to the ED for concern of PE. CTA of the chest was performed as outlined below. Previous history of right nephrectomy for renal cell carcinoma in 2009. She had surveillance CTs for several years. She also had a CT of the abdomen pelvis done in July of this year for reasons unclear presently. CT A/P 07/2023: FINDINGS: LOWER THORAX: Coronary artery calcifications. Lung bases are clear. No cardiomegaly. No significant pericardial effusion. ABDOMEN: LIVER: Unremarkable. Homogeneous. GALLBLADDER AND BILE DUCTS: Cholelithiasis. No gallbladder distention or wall edema. No intra- or extrahepatic biliary ductal dilation. PANCREAS: Unremarkable. No focal cystic mass. SPLEEN: Unremarkable. Normal size without focal cystic or solid mass. ADRENALS: Unremarkable. No nodules. KIDNEYS AND URETERS: Right kidney is absent. Multiple parapelvic cysts left kidney. No hydronephrosis. STOMACH AND BOWEL: Scattered diverticula without diverticulitis. No stomach or bowel distention. PELVIS: APPENDIX: Normal appendix. BLADDER: Unremarkable. REPRODUCTIVE: Hysterectomy. Simple appearing cyst measuring 3.9 cm right adnexa unchanged since previous exam. Simple appearing cyst measuring 3.9 cm left adnexa unchanged since previous exam. ABDOMEN and PELVIS: INTRAPERITONEAL SPACE: Unremarkable. No ascites or other fluid collection. No free air. BONES/JOINTS: Unremarkable. No suspicious lytic or blastic abnormality. SOFT TISSUES: Unremarkable. No discrete abdominal or pelvic wall hernia. VASCULATURE: See above. LYMPH NODES: Unremarkable. No enlarged lymph nodes. CT/Abdomen/Pelvis without Cont IMPRESSION: 1. Multiple parapelvic cysts left kidney. No no hydronephrosis. 2. Cholelithiasis. 3. Scattered diverticula without diverticulitis. 4. Bilateral simple appearing cysts each measuring 3.9 cm unchanged as previous exam. No follow-up imaging necessary. CTA Chest 12/10/2023: Lung-RADS category 4X: Recommend diagnostic chest CT with and without contrast, PET/CT may be considered if there is a greater than 8 mm solid component, tissue sampling, and/or referral for further clinical evaluation. ADDENDUM by Dr. Marce Burt MD on 12/07/23 at 1545 HISTORY: Elevated D dimer. TECHNIQUE: CT angiogram of the chest was performed after the intravenous administration of 100 mL Isovue-370. Post-processing of the angiographic images was performed with multiplanar reformation and 3D reconstruction. Individualized dose optimization techniques were used for this CT. 1079 images. COMPARISON: XR same day. FINDINGS: CENTRAL AIRWAYS: Patent. LUNGS: Mild bilateral bronchial wall thickening. 6 mm noncalcified nodule in the left lower lobe adjacent to the diaphragm. PLEURA: No pneumothorax or significant pleural effusion. HEART/PERICARDIUM: Heart within normal limits in size with coronary artery disease. Trace pericardial fluid. PULMONARY ARTERIES: No filling defect. AORTA/VESSELS: No thoracic aortic aneurysm or dissection flap. Mild atherosclerosis. MEDIASTINUM/EDGAR: 2 x 3.2 cm heterogeneous and lobulated right paratracheal mass, obscured from streak artifact from the adjacent superior vena cava. Mild mass effect on the superior vena cava and right upper lobe pulmonary vessels. OSSEOUS STRUCTURES: Degenerative change. Chronic mild T3 and T9 compression fractures. UPPER ABDOMEN: Borderline dilated small bowel in the biological sciences professor image. ADDENDUM by Dr. Marce Burt MD on 12/16/23 at 0810 IMPRESSION: undefined ADDENDUM by Dr. Marce Burt MD on 12/07/23 at 1545 IMPRESSION: 3 cm right paratracheal mass, concerning for malignancy or metastatic lymphadenopathy. 6 mm left lower lobe pulmonary nodule; recommend follow-up Mild bronchitis. No evidence of acute pulmonary embolism. PET 01/21/2024: INDICATIONS: An 83-year-old female with history of mediastinal mass formation presenting for initial evaluation. COMPARISON EXAMINATION: CTA of the chest report dated 12/07/23 INDEX LESION SIZE SUV INTERPRETATION Right inguinal region 9.7-mm 4.2 May necessitate histopathologic investigation Right precarinal mediastinum 2.3 Quantitative criteria for viable neoplasm are not fulfilled TECHNIQUE: Following the intravenous administration of 14.5 mCi of F-18 deoxyglucose via the right hand, multiplanar image acquisitions of the neck, chest, abdomen and pelvis to level of mid thigh, obtained at one hour post radiopharmaceutical administration contemporaneously interpreted with the current CT of the neck, chest, abdomen and pelvis, to level of mid thigh, dated 01/21/24 via coregistration and CTA of the chest report dated 12/07/23 reveals: BLOOD GLUCOSE LEVEL:?? 85 mg/dl?HEIGHT:?66 inches?WEIGHT: 155 lbs. FINDINGS: HEAD/NECK: There is no evidence of abnormal increased glucose metabolism in the pharyngeal mucosal space, parapharyngeal space, bilateral-lateral and anterior neck, hypopharynx and distribution of the laryngeal structures. The visualized portion of the cerebral cortical-subcortical structures demonstrate symmetric and preserved glucose metabolism. Prominent tracer concentration is noted in the anterior aspect of the oral cavity in proximity to dental hardware placement most consistent with a component of metallic reconstruction artifact. CHEST: Enhanced tracer concentration is defined in the right upper paratracheal lymph node distribution generating a calculated maximal standard uptake value of 2.3. Pertinent chest CT findings are as follows. There is atherosclerotic calcification defined in the thoracic aorta without evidence of dilatation-aneurysm formation. Coronary arterial calcification is observed. Mediastinal and bilateral axillary soft tissue densities are non-glucose avid. There are no parenchymal densities-nodules defined in the right and left hemithorax with quantitatively significant increased FDG uptake. ABDOMEN/PELVIS: Facilitated uptake is noted in the right inguinal region in a single nodular presentation. The calculated maximal standard uptake value is 4.2. The maximal axial diameter of the corresponding soft tissue density is 9.7-mm. Normal physiologic distribution of the radiopharmaceutical is apparent in the hepatic (3.9) and splenic parenchyma, left renal unit, bladder and visualized intestinal tract. Pertinent abdomen and pelvis CT findings are as follows. 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 Colonic diverticula are defined without evidence of diverticulitis. Bilateral adnexal cyst formation is demonstrated. Cholelithiasis is demonstrated. There is atherosclerotic calcification defined in the abdominal aorta without evidence of dilatation-aneurysm formation. Pelvic arterial calcification is observed. SKELETAL: Degenerative changes are noted in the cervical, thoracic and lumbar spine without evidence of increased radiopharmaceutical concentration. PET/PET/CT Tumor Base -Thigh Init IMPRESSION: 1. The increase in radiopharmaceutical concentration defined in the right inguinal region may necessitate histopathologic analysis secondary to the quantitative degree of uptake. 2. Facilitated FDG concentration noted in the precarinal mediastinum to the right of the midline does not fulfill quantitative criteria for malignant transformation. (Alirio et al, Journal of Clinical Oncology 16:2142, 1997). Bronchoscopy with EBUS. Cytology: OPERATION: EBUS with TBNA PRE-OP DIAGNOSIS: Endobronchial ultrasound TISSUE SUBMITTED: A-F- 4R EBUS DIAGNOSIS CYTOLOGY A. EBUS, TBNA, site 4R #1 (smears): - Category: Atypical. - Scant atypical cells. B. EBUS, TBNA, site 4R #2 (smears): - Category: Suspicious for malignancy. - Atypical cells, suspicious for non-small cell carcinoma. See note. NOTE: The smears show tissue fragments of epithelial cells with large, moderately pleomorphic nuclei with prominent single round nucleoi and vacuolated cytoplasm. The nuclei are crowded and overlapped. These epithelial cells lack cilia. The features are suspicious for non-small cell carcinoma. Clinical and radiographic correlation is recommended. C. EBUS, TBNA, site 4R #3 (smears): - Category: Benign - Rare respiratory epithelial cells and lymphocytes. D. EBUS, TBNA, site 4R #4 (smears): - Category: Benign - Rare respiratory epithelial cells and lymphocytes. E. EBUS, TBNA, site 4R #5 (smears): - Category: Benign - Rare respiratory epithelial cells and lymphocytes. F. EBUS, TBNA, site 4R fluid (cytospin and cellblock): - Category: Benign - Rare respiratory epithelial cells and lymphocytes COMMENT The specimen is evaluated at the time of biopsy by Dr. Villanueva. Immediate Evaluation = Rapid onsite evaluation: A: Negative for malignant cells. A few lymphocytes are noted. Respiratory epithelial cells are noted B: Negative for malignant cells. Predominantly respiratory epithelial cells noted. C: Negative for malignant cells. Predominantly respiratory epithelial cells noted. D: Bloody specimen. Negative for malignant cells. Rare epithelial cells. E: Negative for malignant cells. Lymphocytes are noted. Rare respiratory epithelial cells. CONSULTATION REPORT FROM [facility]: INTERPRETATION: The specimen is sent to [facility] for expert opinion, reviewed by Dr. Hernandez and the above diagnosis is rendered. The complete report is viewable in the patient's EMR As per EMR, the patient has history of right kidney cancer, s/p nephrectomy. Clinical correlation and appropriate follow up are necessary. Initial consultation 02/14/2024: She feels well in general. Moved from the [place] area to [place] to be closer to her brother and [id number]. However she lives independently and is capable of ADLs and all IADLs. Cough is resolved. Has some mild chest pain. OV 03/19/2024: Underwent bronchoscopy on 03/09. Biopsies obtained from subcarinal lymph node that measured [address] 4-hour lymph node was 18.3 mm. 13 samples were obtained. Pathology: FINAL DIAGNOSIS A. Lymph node, 4R, biopsy: - Metastatic carcinoma, consistent with renal origin (see comment). Diagnosis Comment A. Immunohistochemical stains show that the tumor cells are positive for CAM5.2 and PAX8 and are negative for TTF-1 and p40. These findings are consistent with the above diagnosis. Presents for ongoing oncologic management. Interim history: Completed RT 05/06/2024. She has no complaints today. No abdominal pain. PAST MEDICAL HISTORY Diagnosis Date SALMA (acute kidney injury) Asthma (HCC) Cholelithiasis Chronic lower back pain Diverticulosis Environmental and seasonal allergies Generalized anxiety disorder History of renal cell cancer 2009 Hypercholesterolemia Hypertension IBS (irritable bowel syndrome) Macular degeneration Mediastinal mass Multiple renal cysts Onychomycosis PAST SURGICAL HISTORY Procedure Laterality Date PAST SURGICAL HISTORY OF 03/06/2024 bronchoscopy with biopsy of mediastinal mass REMV KIDNEY/URETER,SAME INCIS Right VAGINAL HYSTERECTOMY albuterol HFA (PROVENTIL HFA, VENTOLIN HFA) 90 mcg/actuation inhaler Inhale 2 Puffs as instructed every 6 hours as needed for wheezing/shortness of breath. pravastatin (PRAVACHOL) 40 mg tablet Take 1 tablet by mouth once daily. PARoxetine (PAXIL) 40 mg tablet Take 1 tablet by mouth once daily. montelukast (SINGULAIR) 10 mg tablet Take 1 tablet by mouth once daily. vit A/vit C/vit E/zinc/copper (ICAPS AREDS ORAL) Take 1 tablet by mouth two times a day. ALLERGIES Allergen Reactions Cat Dander Hives Zanaflex [Tizanidin* Hives Latex Rash Social History Tobacco Use Smoking status: Never Smokeless tobacco: Never Vaping Use Vaping status: Never Used Substance Use Topics Alcohol use: Never Drug use: Never FAMILY HISTORY Problem Relation Age of Onset Macular Degen Mother Hypertension Mother Heart Attack Father Hyperlipidemia Father Hyperlipidemia Sister Hypertension Sister Hyperlipidemia Brother Macular Degen Brother REVIEW OF SYSTEMS: Neuro: No HINTON. HEENT: No recent change in voice, vision or hearing. Resp: No cough, wheeze and hemoptysis. No shortness of breath at rest. CVS: No exertional chest pain, PND, orthopnea and LE edema. GI: No reflux, n/v, change in bowel habits or abdominal pain. : No dysuria or gross hematuria. Endo: No hot flashes. No polyuria and polydipsia. No heat and cold intolerance. Musculoskeletal: No bone, back, joint and muscular pain. Derm: No current rash. No history of jaundice or diffuse pruritis. Heme: No unusual bleeding and unexplained bruising. Psych: Normal mood. PHYSICAL EXAM: Vitals: Blood pressure 107/69, pulse 97, temperature 36.7 C (98.1 F), temperature source Temporal, weight 68.7 kg (151 lb 8 oz), SpO2 94%. Well-appearing and in no acute distress. EYES: Sclerae are anicteric bilaterally. LYMPHATIC: There is no palpable adenopathy. RESPIRATORY: Wheezes all throughout. CARDIOVASCULAR: Rhythm is regular. ABDOMEN: The abdomen is nondistended. Extremities: No swelling or edema. 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 -Suspect this metastatic deposit in the 4R node has been there quite a while. - I reviewed the results of her CT scans with her. Compared her most recent abdominal pelvic CT scan to the one done at [facility] July [address]23. That CT was done without IV contrast but in retrospect knowing where to look, appears the 3 pancreatic lesions (which most likely represent metastatic renal cell carcinoma) are stable. Because she has oligometastatic disease and has had stable disease for at least a year, I recommended continued surveillance but she is not comfortable with that approach. She prefers treatment if metastatic disease. Therefore we discussed referral for EUS with potential biopsy. If RCC then we can consider axitinib with pembrolizumab or cabozantinib with nivolumab. Plan: - Referral for EGD/EUS at [facility]. - OV about a week after above. Portions of this documentation were copied and pasted from my previous office visit note dated 06/03/2024 in order to provide a cohesive continuity of the history. The note has been reviewed and edited and updated as necessary. I spent a total of 30 minutes on the date of the service which included preparing to see the patient, [id number] patient care, completing clinical documentation, counseling and educating the patient/family/caregiver, ordering medications, tests, or procedures, communicating with other HCPs (not separately reported), and communicating results to the patient/family/caregiver. Spencer Velarde DO documented in this encounter [facility] 09-11-2024 Telephone encounter Note Spoke w pt and she is rescheduled gabriele Velarde. Angeels Alfaro [facility] 09-11-2024 Miscellaneous Notes Spoke w pt and she is rescheduled gabriele Velarde. Angeles Alfaro PSS- I called and left the patient's brotherАлександр, a message to reschedule today's OV. I will cancel it and it needs to be rescheduled with Dr. Velarde instead of an MAINTENANCE SUPERVISOR MECHANICAL. Please reach out to patient's brother to reschedule. Judit Jovel LPN documented in this encounter [facility] 09-11-2024 Telephone encounter Note PSS- I called and left the patient's brother, Александр, a message to reschedule today's OV. I will cancel it and it needs to be rescheduled with Dr. Velarde instead of an MAINTENANCE SUPERVISOR MECHANICAL. Please reach out to patient's brother to reschedule. Judit Jovel LPN [facility] 08-05-2024 Note [facility] 08-05-2024 History of Present illness Narrative 08/05/2024 Patient presents with: Headache: X2 days SUBJECTIVE: This is a 84 year old that is here today for Above Complaints. Reports headache in back of head. Reports it as a throbbing pain. Reports she normally gets this every spring related to allergies. She has taken Zyrtec for a couple of days but doesn't seem to be helping. Denies any accompanying visual changes, lightheadedness, dizziness, slurred speech, facial drooping, extremity numbness tingling or weakness. Also denies weight loss, sinus pain/pressure, rhinorrhea, nasal congestion watery eyes, or ear discomfort PAST MEDICAL HISTORY Diagnosis Date SALMA (acute kidney injury) Asthma (HCC) Cholelithiasis Chronic lower back pain Diverticulosis Environmental and seasonal allergies Generalized anxiety disorder History of renal cell cancer 2009 Hypercholesterolemia Hypertension IBS (irritable bowel syndrome) Macular degeneration Mediastinal mass Multiple renal cysts Onychomycosis ALLERGIES Cat Dander, Zanaflex [Tizanidine], and Latex MEDICATIONS Current Outpatient Medications Medication Sig albuterol HFA (PROVENTIL HFA, VENTOLIN HFA) 90 mcg/actuation inhaler Inhale 2 Puffs as instructed every 6 hours as needed for wheezing/shortness of breath. pravastatin (PRAVACHOL) 40 mg tablet Take 1 tablet by mouth once daily. PARoxetine (PAXIL) 40 mg tablet Take 1 tablet by mouth once daily. montelukast (SINGULAIR) 10 mg tablet Take 1 tablet by mouth once daily. vit A/vit C/vit E/zinc/copper (ICAPS AREDS ORAL) Take 1 tablet by mouth two times a day. No current facility-administered medications for this visit. Medications and allergies reviewed by this provider. SOCIAL HISTORY Social History Tobacco Use Smoking status: Never Smokeless tobacco: Never Vaping Use Vaping status: Never Used Substance Use Topics Alcohol use: Never Drug use: Never REVIEW OF SYSTEMS All other reviewed and negative other than HPI. OBJECTIVE: BP 134/68 Pulse 104 Temp 36.8 C (98.3 F) Resp 18 Wt 69.9 kg (154 lb 3.2 oz) SpO2 96% BMI 25.02 kg/m . Vital signs reviewed by this provider. APPEARANCE Well appearing, alert, in no acute distress, well-hydrated, well nourished. EYES PERRLA, conjunctiva and sclera normal. EARS External ears normal, canals clear NECK Supple, no adenopathy; thyroid symmetric, normal size, no bruits HEART RRR with normal S1 and S2, no murmurs, no gallops, no JVD appreciated LUNG clear to auscultation. No wheezes rhonchi or rales EXTREMITIES Extremities normal, No deformities, No skin discoloration, and No edema NEURO Awake, alert and oriented x 3, Cranial nerves II-XII grossly intact, Reflexes symmetrical, Normal gait, No involuntary motions., and negative findings: speech normal, mental status intact, cranial nerves 2-12 intact, gait, including heel, toe, and tandem walking normal, Romberg negative, muscle tone normal, muscle strength normal, rapid alternating movements normal, finger to nose normal, reflexes normal and symmetric, plantar response downgoing bilaterally, normal sensation SKIN Skin color, texture, turgor normal, no suspicious rashes or lesions to exposed skin Spirometry Never done Depression Screening Never done Advance Directive Discussion Never done DTaP,Tdap,Td Vaccine(1 - Tdap) due on 03/10/2025 RSV Vaccine(1 - 1-dose 75+ series) due on 03/10/2025 Covid-19 Vaccine( season) due on 09/07/2024 Diabetes Screening due on 05/20/2027 Bone Density Screening Completed Influenza Vaccine Completed Shingrix Vaccine Completed Pneumococcal Vaccine: 50+ Completed ASSESSMENT/PLAN: 1. Headache, unspecified headache type - ICD9: 784.0, ICD10: R51.9 - no red flag symptoms or exam findings - red flag symptoms discussed - in addition to her Zyrtec she can try OTC tylenol as directed on packaging as well as Flonase nasal spray - follow-up if fails to improve to ER with red flag symptoms Zandra Podlogar, MANAGER OF DRILLING.STACK CLERK Prescription instructions reviewed with patient as applicable. Patient advised if symptoms do not improve or if symptoms worsen sooner, to contact their primary care physician. Potential red flag symptoms discussed with the patient. Reviewed appropriate action plan to take if red flag symptoms occur. Patient agreeable to treatment plan. Medical Decision Making: Problems: Low: Acute, uncomplicated illness or injury Risk: Low: Low risk from testing/treatment Medical Decision Making Level: 3 - Low documented in this encounter [facility] 08-05-2024 Note [facility] 08-05-2024 History of Present illness Narrative [facility] Subjective Deangelo Beach is a 84 year old female. Patient presents with: Headache: HINTON and sinus and congestion x 2 days 84 year old female with PMH HTN, asthma, hyperlipidemia, anxiety and mediastinal mass presents for headache Acute onset 2 days ago Locates pain in back of head I think its a sinus infection She denies sinus pressure, nasal congestion Denies sore throat Denies cough Denies SOB or dyspnea Endorses she has taken Flonase, but has had no relief She repeatedly states I am just worried about that cancer Headache Review of Systems Neurological: Positive for headaches. Objective BP 146/82 Pulse 113 Temp 36.9 C (98.4 F) (Tympanic) Resp 18 Wt 70.6 kg (155 lb 10.3 oz) SpO2 97% BMI 25.25 kg/m Physical Exam {ASSESSMENT/PLAN: 1. Headache, unspecified headache type - ICD9: 784.0, ICD10: R51.9 X 2 days Think it is sinus infection but denies any additional and accompanying sx and locates pain in occipital region She repeatedly makes concern about cancer No red flags Can't you just take an xray Discussed her concerns and sx would be more appropriate for a CT head Review of PCP schedule reveals an opening today Walked patient to PCP office, Warm hand off provided. Amelia Escalona APRN.DOUGLAS MDM Procedures documented in this encounter [facility] 07-09-2024 Telephone encounter Note Phoned primary number for patient and her brother Kailee answered reviewed message with him. He stated he will contact patient and let her know. Alexa Mcdaniels LPN [facility] 07-09-2024 Miscellaneous Notes Phoned primary number for patient and her brother Kailee answered reviewed message with him. He stated he will contact patient and let her know. Alexa Mcdaniels LPN I can assume he wanted to try her on something like albuterol. Can use it prn. Rx sent Patient calls to let provider know that she is rethinking the inhaler that she was recently declining. Patient reports that with the warmer months coming she thinks the wheezing and cough is going to get worse and would like to have the inhaler as discussed at appointment. Patient reports that Dr. Lambert told her if she changed her mind at appointment 06/08/2024 to call in and he would send inhaler in to the pharmacy. Prescription not pended as OV notes discuss inhaler but notes patient refusal but not which specific inhaler. Melania Alanis, RN documented in this encounter [facility] 07-09-2024 Telephone encounter Note I can assume he wanted to try her on something like albuterol. Can use it prn. Rx sent [facility] 07-09-2024 Telephone encounter Note Patient calls to let provider know that she is rethinking the inhaler that she was recently declining. Patient reports that with the warmer months coming she thinks the wheezing and cough is going to get worse and would like to have the inhaler as discussed at appointment. Patient reports that Dr. Lambert told her if she changed her mind at appointment 06/08/2024 to call in and he would send inhaler in to the pharmacy. Prescription not pended as OV notes discuss inhaler but notes patient refusal but not which specific inhaler. Melania Alanis, RN [facility] 06-19-2024 Telephone encounter Note Pt notified and will start Mucinex. Ghazal Leavitt LPN [facility] 06-19-2024 Miscellaneous Notes Pt notified and will start Mucinex. Ghazal Leavitt LPN Left message for patient to contact office. Judit Jovel LPN I agree. Can assure her the cough is not related to the cancer. Please see Dr. Lambert's note from 06/08. However, if cough worsens or she gets more wheezing, then ED. Spencer Velarde DO Call to patient COUGH Do you have a cough? yes If yes, when did it start? this week Is your cough productive? sometimes, clear, hard to cough up Does your cough worsen with activity? no Does your cough worsen when you lie down? yes Are you taking anything for the cough? no, she is calling to ask what to take She denies fever, shortness of breath, respiratory symptoms. States she is all worked up and has a rash on her neck and chest, chest lao and it can be itchy. She is not sleeping good and worrying too much and the cough is keeping her awake hamida. when she lies down. She has been sleeping on the couch propped up. She has an appointment with inside technical sales representative in July. Instructed to ok to use a cough medication, Robitussin or something similar. If she having trouble coughing up phlegm, can use Mucinex, a humidifier could help also. For rash, advised hydrocortisone cream, moisturizer if dry and not scratching the area. She then mentioned that her friend advised Tylenol PM to help sleep and she is aware ok to use, that it contains Benedryl which may help the rash as well. Patient very concerned about her cancer and that everything is ok and she doesn't mess it up. Reassurance given and allowed patient to talk it though. Instructed to call with any worsening or persistent symptoms not responding to above OTC. Patient states that she wrote down the name of above medications and will go to [facility] to clam picker. Advised to ask the pharmacist to assist with finding them if needed. Tennille Alarcon RN Kailee calls back and states she is concerned about cough because that is how she presented last year in the ED with cough and then found the cancer. He states she would benefit from a call from our office to talk with her. Tennille Alarcon RN Care Coordination Triage Note [facility] Situation: Patient reports Cough/Respiratory Concerns/SOB Background: RCC, completed XRT 05/06/24 to right paratracheal node Assessment: Call to number in chart for patient, Kailee, brother answered phone. He states he talked with patient last evening and wasn't aware of a cough issue. He states he thinks the patient is fine but he will call her and talk with her. Plan: Kailee will call patient at this time and call us back with an update. Recommendations: Per RN[facility], patient directed to: Manage at home. Instructions provided. Will await return call from brother. Zo Alarcon RN June 18, 2024 2:39 PM Patient called stating she has a cough that won't go away. She is asking what she can take. documented in this encounter [facility] 06-19-2024 Telephone encounter Note Left message for patient to contact office. Judit Jovel LPN [facility] 06-18-2024 Telephone encounter Note I agree. Can assure her the cough is not related to the cancer. Please see Dr. Lambert's note from 06/08. However, if cough worsens or she gets more wheezing, then ED. Spencer Velarde DO [facility] Work Phone: 06-18-2024 Telephone encounter Note Call to patient COUGH Do you have a cough? yes If yes, when did it start? this week Is your cough productive? sometimes, clear, hard to cough up Does your cough worsen with activity? no Does your cough worsen when you lie down? yes Are you taking anything for the cough? no, she is calling to ask what to take She denies fever, shortness of breath, respiratory symptoms. States she is all worked up and has a rash on her neck and chest, chest lao and it can be itchy. She is not sleeping good and worrying too much and the cough is keeping her awake hamida. when she lies down. She has been sleeping on the couch propped up. She has an appointment with inside technical sales representative in July. Instructed to ok to use a cough medication, Robitussin or something similar. If she having trouble coughing up phlegm, can use Mucinex, a humidifier could help also. For rash, advised hydrocortisone cream, moisturizer if dry and not scratching the area. She then mentioned that her friend advised Tylenol PM to help sleep and she is aware ok to use, that it contains Benedryl which may help the rash as well. Patient very concerned about her cancer and that everything is ok and she doesn't mess it up. Reassurance given and allowed patient to talk it though. Instructed to call with any worsening or persistent symptoms not responding to above OTC. Patient states that she wrote down the name of above medications and will go to [facility] to clam picker. Advised to ask the pharmacist to assist with finding them if needed. Tennille Alarcon RN [facility] Work Phone: 06-18-2024 Telephone encounter Note Kailee calls back and states she is concerned about cough because that is how she presented last year in the ED with cough and then found the cancer. He states she would benefit from a call from our office to talk with her. Tennille Alarcon RN [facility] 06-18-2024 Telephone encounter Note Care Coordination Triage Note [facility] Situation: Patient reports Cough/Respiratory Concerns/SOB Background: RCC, completed XRT 05/06/24 to right paratracheal node Assessment: Call to number in chart for patient, sonny Augustiner answered phone. He states he talked with patient last evening and wasn't aware of a cough issue. He states he thinks the patient is fine but he will call her and talk with her. Plan: Kailee will call patient at this time and call us back with an update. Recommendations: Per RNCC, patient directed to: Manage at home. Instructions provided. Will await return call from brother. Zo Alarcon RN June 18, 2024 2:39 PM [facility] 06-18-2024 Telephone encounter Note Patient called stating she has a cough that won't go away. She is asking what she can take. [facility] Work Phone: 06-08-2024 Note [facility] 06-08-2024 History of Present illness Narrative Chief Complaint Patient presents with: Follow Up: 6 week for anxiety HPI Deangelo Beach is a 84 year old female who presents here today for Above Complaints.. Patient started on Paxil 40 mg daily at OV 6 weeks ago for uncontrolled anxiety after diagnosis of cancer. Symptoms improved significantly on current regimen without side effects. PHQ-9 10/24/2023 03/10/2024 06/08/2024 PHQ-9 Scores Little interest or pleasure in doing things: More than half the days Several days Not at all Feeling down, depressed, or hopeless: Nearly every day Several days Not at all Trouble falling or staying asleep, or sleeping too much Nearly every day More than half the days Not at all Feeling tired or having little energy Nearly every day More than half the days Not at all Poor appetite or overeating More than half the days Nearly every day Not at all Feeling bad about yourself - or that you are a failure or have let yourself or your family down Not at all Not at all Not at all Trouble concentrating on things, such as reading the newspaper or watching television Not at all Not at all Not at all Moving or speaking so slowly that other people could have noticed. Or the opposite - being so fidgety or restless that you have been moving around a lot more than usual Not at all Not at all Not at all Thoughts that you would be better off , or of hurting yourself in some way Not at all Not at all Not at all PHQ-9 Score 13 9 0 KAREY-7 10/24/2023 03/10/2024 06/08/2024 KAREY-7 All Questions Feeling nervous, anxious, or on edge Several days More than half the days Not at all Not being able to stop or control worrying Not at all Not at all Not at all Worrying too much about different things More than half the days More than half the days Several days Trouble relaxing More than half the days More than half the days Not at all Being so restless that it is hard to sit still Nearly Everyday Several days Not at all Becoming easily annoyed or irritable More than half the days Not at all Not at all Feeling afraid, as if something awful might happen More than half the days Not at all Not at all KAREY-7 Score 12 7 1 Admits to cough at night and wheezing. Denies SOB, chest pain, chest congestion, fever/chills. States that she has not been on her singulair recently and thinks it will get better once she has been on it a few days. Reports Dr. Velarde told her that she had wheezing and offered inhaler which she is refusing. Past medical history, appointments, medications, allergies reviewed. Previous Medical History PAST MEDICAL HISTORY Diagnosis Date SALMA (acute kidney injury) (HCC) Asthma Cholelithiasis Chronic lower back pain Diverticulosis Environmental and seasonal allergies Generalized anxiety disorder History of renal cell cancer 2009 Hypercholesterolemia Hypertension IBS (irritable bowel syndrome) Macular degeneration Mediastinal mass Multiple renal cysts Onychomycosis Previous Surgical History PAST SURGICAL HISTORY Procedure Laterality Date PAST SURGICAL HISTORY OF 03/06/2024 bronchoscopy with biopsy of mediastinal mass REMV KIDNEY/URETER,SAME INCIS Right VAGINAL HYSTERECTOMY Family History FAMILY HISTORY Problem Relation Age of Onset Macular Degen Mother Hypertension Mother Heart Attack Father Hyperlipidemia Father Hyperlipidemia Sister Hypertension Sister Hyperlipidemia Brother Macular Degen Brother Patient Allergies ALLERGIES Allergen Reactions Cat Dander Hives Zanaflex [Tizanidin* Hives Latex Rash Current Medications Current Outpatient Medications on File Prior to Visit Medication Sig pravastatin (PRAVACHOL) 40 mg tablet Take 1 tablet by mouth once daily. PARoxetine (PAXIL) 40 mg tablet Take 1 tablet by mouth once daily. montelukast (SINGULAIR) 10 mg tablet Take 1 tablet by mouth once daily. vit A/vit C/vit E/zinc/copper (ICAPS AREDS ORAL) Take 1 tablet by mouth two times a day. No current facility-administered medications on file prior to visit. Social History Social History Tobacco Use Smoking status: Never Smokeless tobacco: Never Vaping Use Vaping status: Never Used Substance Use Topics Alcohol use: Never Drug use: Never Review of Symptoms REVIEW OF SYSTEMS GENERAL: No weight loss, malaise or fevers RESPIRATORY: See HPI CARDIOVASCULAR: Negative for chest pain, leg swelling, hypertension, CHF or palpitations GI: No nausea, vomiting, or diarrhea SKIN: Negative for lesions, rash, and itching EXAM: BP 108/60 Pulse 98 Resp 16 Wt 73.3 kg (161 lb 9.6 oz) SpO2 98% BMI 26.22 kg/m General Appearance: Well appearing, alert, in no acute distress, well-hydrated, well nourished.. Skin: Skin color, texture, turgor normal, no suspicious rashes or lesions. Lungs: scattered wheezing bilaterally with good air entry. No rale, rhonchi, or consolidation. Heart: RRR without murmur, gallop, or rubs. No ectopy. PSYCH: Posture and motor behavior: normal posture and motor behavior Dress, grooming, personal hygiene: normal dress and grooming Facial expression: smiling Speech: normal speech Mood: cheerful Coherency and relevance of thought: normal thought processes Memory: normal memory Health Maintenance List Depression Screening Never done Advance Directive Discussion Never done DTaP,Tdap,Td Vaccine(1 - Tdap) due on 03/10/2025 RSV Vaccine(1 - 1-dose 75+ series) due on 03/10/2025 Covid-19 Vaccine( season) due on 09/07/2024 Diabetes Screening due on 05/20/2027 Bone Density Screening Completed Influenza Vaccine Completed Shingrix Vaccine Completed Pneumococcal Vaccine: 50+ Completed ASSESSMENT/PLAN: 1. Generalized anxiety disorder - ICD9: 300.02, ICD10: F41.1 (primary diagnosis) Improved. Continue current regimen. 2. Mild intermittent asthma without complication - ICD9: 493.90, ICD10: J45.20 - Mild intermittent asthma worse - Continue current medications - Avoidance of triggers recommended Refusing rx for inhaler. Discussed risks of untreated asthma exacerbation including hospitalization or even if severe. Red flags for re-assessment reviewed with patient in detail. Solis Lambert MD documented in this encounter [facility] 06-08-2024 Telephone encounter Note Relayed message to patient [facility] Work Phone: 06-08-2024 Miscellaneous Notes Relayed message to patient Spoke with pts. Brother. Pt. Is still sleeping. Will try again later. Maria R Martinez LPN Can let her know that the radiologist who interpreted her CT scan measured the tumor is being smaller than it was previous to radiation. That is great. Can follow-up as scheduled. Spencer Velarde DO documented in this encounter [facility] 06-08-2024 Telephone encounter Note Spoke with pts. Brother. Pt. Is still sleeping. Will try again later. Maria R Martinez LPN [facility] 06-05-2024 Telephone encounter Note Can let her know that the radiologist who interpreted her CT scan measured the tumor is being smaller than it was previous to radiation. That is great. Can follow-up as scheduled. Spencer Velarde DO [facility] Work Phone: 06-04-2024 Note [facility] 06-04-2024 History of Present illness Narrative AMBULATORY TELEPHONE VISIT Deangelo Beach has consented to this telephone encounter. 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 She is doing well without any specific new complaints. She denies any chest pain or any shortness of breath or cough. CT on 06/03/24 showed interval decrease in the size of the mediastinal soft tissue mass. Data Reviewed: Most recent imaging Assessment: She doesn't have any significant acute complications. Good initial response of the metastasis to radiation treatment on recent CT scan. Plan: She is scheduled to have a follow-up CT scans in August and then to see Dr. Velarde. Total Time Spent: 10 minutes Aguilar Nava MD documented in this encounter [facility] 06-03-2024 Note [facility] 06-03-2024 History of Present illness Narrative Oncologic problem(s): 1) Metastatic recurrence of renal cell carcinoma. HPI: The patient is an 84 yo female with PMH significant for RCC. The patient developed a cough in late November. She went to urgent care. Evidently she was directed to the ED for concern of PE. CTA of the chest was performed as outlined below. Previous history of right nephrectomy for renal cell carcinoma in 2009. She had surveillance CTs for several years. She also had a CT of the abdomen pelvis done in July of this year for reasons unclear presently. CT A/P 07/2023: FINDINGS: LOWER THORAX: Coronary artery calcifications. Lung bases are clear. No cardiomegaly. No significant pericardial effusion. ABDOMEN: LIVER: Unremarkable. Homogeneous. GALLBLADDER AND BILE DUCTS: Cholelithiasis. No gallbladder distention or wall edema. No intra- or extrahepatic biliary ductal dilation. PANCREAS: Unremarkable. No focal cystic mass. SPLEEN: Unremarkable. Normal size without focal cystic or solid mass. ADRENALS: Unremarkable. No nodules. KIDNEYS AND URETERS: Right kidney is absent. Multiple parapelvic cysts left kidney. No hydronephrosis. STOMACH AND BOWEL: Scattered diverticula without diverticulitis. No stomach or bowel distention. PELVIS: APPENDIX: Normal appendix. BLADDER: Unremarkable. REPRODUCTIVE: Hysterectomy. Simple appearing cyst measuring 3.9 cm right adnexa unchanged since previous exam. Simple appearing cyst measuring 3.9 cm left adnexa unchanged since previous exam. ABDOMEN and PELVIS: INTRAPERITONEAL SPACE: Unremarkable. No ascites or other fluid collection. No free air. BONES/JOINTS: Unremarkable. No suspicious lytic or blastic abnormality. SOFT TISSUES: Unremarkable. No discrete abdominal or pelvic wall hernia. VASCULATURE: See above. LYMPH NODES: Unremarkable. No enlarged lymph nodes. CT/Abdomen/Pelvis without Cont IMPRESSION: 1. Multiple parapelvic cysts left kidney. No no hydronephrosis. 2. Cholelithiasis. 3. Scattered diverticula without diverticulitis. 4. Bilateral simple appearing cysts each measuring 3.9 cm unchanged as previous exam. No follow-up imaging necessary. CTA Chest 12/10/2023: Lung-RADS category 4X: Recommend diagnostic chest CT with and without contrast, PET/CT may be considered if there is a greater than 8 mm solid component, tissue sampling, and/or referral for further clinical evaluation. Electronically Signed: Marce Burt MD at 8:10 EDT Reading Location ID and State: [facility] / [place] Tel , Service support , N.B. : Jose Parmar MD, confirmed on 12/07/2023 15:54:36 (ET) that the healthcare facility has received the radiology report. Signed ADDENDUM by Dr. Marce Brut MD on 12/07/23 at 1545 [id number] HISTORY: Elevated D dimer. TECHNIQUE: CT angiogram of the chest was performed after the intravenous administration of 100 mL Isovue-370. Post-processing of the angiographic images was performed with multiplanar reformation and 3D reconstruction. Individualized dose optimization techniques were used for this CT. 1079 images. COMPARISON: XR same day. FINDINGS: CENTRAL AIRWAYS: Patent. LUNGS: Mild bilateral bronchial wall thickening. 6 mm noncalcified nodule in the left lower lobe adjacent to the diaphragm. PLEURA: No pneumothorax or significant pleural effusion. HEART/PERICARDIUM: Heart within normal limits in size with coronary artery disease. Trace pericardial fluid. PULMONARY ARTERIES: No filling defect. AORTA/VESSELS: No thoracic aortic aneurysm or dissection flap. Mild atherosclerosis. MEDIASTINUM/EDGAR: 2 x 3.2 cm heterogeneous and lobulated right paratracheal mass, obscured from streak artifact from the adjacent superior vena cava. Mild mass effect on the superior vena cava and right upper lobe pulmonary vessels. OSSEOUS STRUCTURES: Degenerative change. Chronic mild T3 and T9 compression fractures. UPPER ABDOMEN: Borderline dilated small bowel in the biological sciences professor image. ADDENDUM by Dr. Marce Burt MD on 12/16/23 at 0810 IMPRESSION: undefined ADDENDUM by Dr. Marce Burt MD on 12/07/23 at 1545 IMPRESSION: 3 cm right paratracheal mass, concerning for malignancy or metastatic lymphadenopathy. 6 mm left lower lobe pulmonary nodule; recommend follow-up Mild bronchitis. No evidence of acute pulmonary embolism. PET 01/21/2024: INDICATIONS: An 83-year-old female with history of mediastinal mass formation presenting for initial evaluation. COMPARISON EXAMINATION: CTA of the chest report dated 12/07/23 INDEX LESION SIZE SUV INTERPRETATION Right inguinal region 9.7-mm 4.2 May necessitate histopathologic investigation Right precarinal mediastinum 2.3 Quantitative criteria for viable neoplasm are not fulfilled TECHNIQUE: Following the intravenous administration of 14.5 mCi of F-18 deoxyglucose via the right hand, multiplanar image acquisitions of the neck, chest, abdomen and pelvis to level of mid thigh, obtained at one hour post radiopharmaceutical administration contemporaneously interpreted with the current CT of the neck, chest, abdomen and pelvis, to level of mid thigh, dated 01/21/24 via coregistration and CTA of the chest report dated 12/07/23 reveals: BLOOD GLUCOSE LEVEL:?? 85 mg/dl?HEIGHT:?66 inches?WEIGHT: 155 lbs. FINDINGS: HEAD/NECK: There is no evidence of abnormal increased glucose metabolism in the pharyngeal mucosal space, parapharyngeal space, bilateral-lateral and anterior neck, hypopharynx and distribution of the laryngeal structures. The visualized portion of the cerebral cortical-subcortical structures demonstrate symmetric and preserved glucose metabolism. Prominent tracer concentration is noted in the anterior aspect of the oral cavity in proximity to dental hardware placement most consistent with a component of metallic reconstruction artifact. CHEST: Enhanced tracer concentration is defined in the right upper paratracheal lymph node distribution generating a calculated maximal standard uptake value of 2.3. Pertinent chest CT findings are as follows. There is atherosclerotic calcification defined in the thoracic aorta without evidence of dilatation-aneurysm formation. Coronary arterial calcification is observed. Mediastinal and bilateral axillary soft tissue densities are non-glucose avid. There are no parenchymal densities-nodules defined in the right and left hemithorax with quantitatively significant increased FDG uptake. ABDOMEN/PELVIS: Facilitated uptake is noted in the right inguinal region in a single nodular presentation. The calculated maximal standard uptake value is 4.2. The maximal axial diameter of the corresponding soft tissue density is 9.7-mm. Normal physiologic distribution of the radiopharmaceutical is apparent in the hepatic (3.9) and splenic parenchyma, left renal unit, bladder and visualized intestinal tract. Pertinent abdomen and pelvis CT findings are as follows. 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 Colonic diverticula are defined without evidence of diverticulitis. Bilateral adnexal cyst formation is demonstrated. Cholelithiasis is demonstrated. There is atherosclerotic calcification defined in the abdominal aorta without evidence of dilatation-aneurysm formation. Pelvic arterial calcification is observed. SKELETAL: Degenerative changes are noted in the cervical, thoracic and lumbar spine without evidence of increased radiopharmaceutical concentration. PET/PET/CT Tumor Base -Thigh Init IMPRESSION: 1. The increase in radiopharmaceutical concentration defined in the right inguinal region may necessitate histopathologic analysis secondary to the quantitative degree of uptake. 2. Facilitated FDG concentration noted in the precarinal mediastinum to the right of the midline does not fulfill quantitative criteria for malignant transformation. (Alirio et al, Journal of Clinical Oncology 16:2142, 1998). Bronchoscopy with EBUS. Cytology: OPERATION: EBUS with TBNA PRE-OP DIAGNOSIS: Endobronchial ultrasound TISSUE SUBMITTED: A-F- 4R EBUS DIAGNOSIS CYTOLOGY A. EBUS, TBNA, site 4R #1 (smears): - Category: Atypical. - Scant atypical cells. B. EBUS, TBNA, site 4R #2 (smears): - Category: Suspicious for malignancy. - Atypical cells, suspicious for non-small cell carcinoma. See note. NOTE: The smears show tissue fragments of epithelial cells with large, moderately pleomorphic nuclei with prominent single round nucleoi and vacuolated cytoplasm. The nuclei are crowded and overlapped. These epithelial cells lack cilia. The features are suspicious for non-small cell carcinoma. Clinical and radiographic correlation is recommended. C. EBUS, TBNA, site 4R #3 (smears): - Category: Benign - Rare respiratory epithelial cells and lymphocytes. D. EBUS, TBNA, site 4R #4 (smears): - Category: Benign - Rare respiratory epithelial cells and lymphocytes. E. EBUS, TBNA, site 4R #5 (smears): - Category: Benign - Rare respiratory epithelial cells and lymphocytes. F. EBUS, TBNA, site 4R fluid (cytospin and cellblock): - Category: Benign - Rare respiratory epithelial cells and lymphocytes COMMENT The specimen is evaluated at the time of biopsy by Dr. Villanueva. Immediate Evaluation = Rapid onsite evaluation: A: Negative for malignant cells. A few lymphocytes are noted. Respiratory epithelial cells are noted B: Negative for malignant cells. Predominantly respiratory epithelial cells noted. C: Negative for malignant cells. Predominantly respiratory epithelial cells noted. D: Bloody specimen. Negative for malignant cells. Rare epithelial cells. E: Negative for malignant cells. Lymphocytes are noted. Rare respiratory epithelial cells. CONSULTATION REPORT FROM [facility]: INTERPRETATION: The specimen is sent to [facility] for expert opinion, reviewed by Dr. Hernandez and the above diagnosis is rendered. The complete report is viewable in the patient's EMR As per EMR, the patient has history of right kidney cancer, s/p nephrectomy. Clinical correlation and appropriate follow up are necessary. Initial consultation 02/14/2024: She feels well in general. Moved from [facility] to [place] to be closer to her brother and [id number]. However she lives independently and is capable of ADLs and all IADLs. Cough is resolved. Has some mild chest pain. OV 03/19/2024: Underwent bronchoscopy on 03/09. Biopsies obtained from subcarinal lymph node that measured [address] 4-hour lymph node was 18.3 mm. 13 samples were obtained. Pathology: FINAL DIAGNOSIS A. Lymph node, 4R, biopsy: - Metastatic carcinoma, consistent with renal origin (see comment). Diagnosis Comment A. Immunohistochemical stains show that the tumor cells are positive for CAM5.2 and PAX8 and are negative for TTF-1 and p40. These findings are consistent with the above diagnosis. Presents for ongoing oncologic management. Interim history: Completed RT 05/06/2024. On montelukast for about 3 years. Subjectively stopped wheezing. Brother endorses she has audible wheezing. PAST MEDICAL HISTORY Diagnosis Date SALMA (acute kidney injury) (HCC) Asthma Cholelithiasis Chronic lower back pain Diverticulosis Environmental and seasonal allergies Generalized anxiety disorder History of renal cell cancer 2009 Hypercholesterolemia Hypertension IBS (irritable bowel syndrome) Macular degeneration Mediastinal mass Multiple renal cysts Onychomycosis PAST SURGICAL HISTORY Procedure Laterality Date PAST SURGICAL HISTORY OF 03/06/2024 bronchoscopy with biopsy of mediastinal mass REMV KIDNEY/URETER,SAME INCIS Right VAGINAL HYSTERECTOMY pravastatin (PRAVACHOL) 40 mg tablet Take 1 tablet by mouth once daily. PARoxetine (PAXIL) 40 mg tablet Take 1 tablet by mouth once daily. montelukast (SINGULAIR) 10 mg tablet Take 1 tablet by mouth once daily. vit A/vit C/vit E/zinc/copper (ICAPS AREDS ORAL) Take 1 tablet by mouth two times a day. iv contrast (will be provided with radiology test) CT Chest W -Inject, intravenously, once for 1 dose.No IV access, insert saline lock prior to the beginning of sedation, infusion, injection of imaging exam. Discontinue saline lock post exam. If Pt. has a central line or IVAD, may access for administration according to line specific nursing protocol. Once exam is complete flush line and de-access according to line specific nursing protocol in the CT contrast administration guidelines link. ALLERGIES Allergen Reactions Cat Dander Hives Zanaflex [Tizanidin* Hives Latex Rash Social History Tobacco Use Smoking status: Never Smokeless tobacco: Never Vaping Use Vaping status: Never Used Substance Use Topics Alcohol use: Never Drug use: Never FAMILY HISTORY Problem Relation Age of Onset Macular Degen Mother Hypertension Mother Heart Attack Father Hyperlipidemia Father Hyperlipidemia Sister Hypertension Sister Hyperlipidemia Brother Macular Degen Brother REVIEW OF SYSTEMS: Constitutional: No episodes of fever and night sweats. Not significantly fatigued. Normal appetite. Neuro: No HINTON, vertigo, dizziness and imbalance. No symptoms of neuropathy. HEENT: No recent change in voice, vision or hearing. Resp: No cough, wheeze and hemoptysis. No shortness of breath at rest. No VARGAS. CVS: No exertional chest pain, PND, orthopnea and LE edema. GI: No altered taste or symptoms of stomatitis. No dysphagia and odynophagia. No reflux, n/v, change in bowel habits or abdominal pain. : No dysuria or gross hematuria. No symptoms of bladder outlet obstruction. Endo: No hot flashes. No polyuria and polydipsia. No heat and cold intolerance. Musculoskeletal: No bone, back, joint and muscular pain. Derm: No current rash. No history of jaundice or diffuse pruritis. Heme: No unusual bleeding and unexplained bruising. Psych: Normal mood. PHYSICAL EXAM: Vitals: Blood pressure 128/70, pulse 107, temperature 36.3 C (97.4 F), temperature source Temporal, weight 73.7 kg (162 lb 8 oz), SpO2 96%. Well-appearing and in no acute distress. EYES: Sclerae are anicteric bilaterally. LYMPHATIC: There is no palpable adenopathy. RESPIRATORY: Wheezes all throughout. CARDIOVASCULAR: Rhythm is regular. ABDOMEN: The abdomen is nondistended. Extremities: No swelling or edema. 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 -Suspect this metastatic deposit in the 4R node has been there quite a while. -Due to her somewhat frail nature with an isolated metastasis, recommended radiation followed by close surveillance. -Reviewed CT images. SD. -Discussed pros and cons of starting a TKI inhibitor and decided to continue monitoring. Plan: -CT C/A/P in about 3 months. (D75.1) Polycythemia Assessment: -Observed to have gradual increase in hemoglobin and hematocrit over time. -Lifelong non-smoker. -MPN panel negative. -Serum erythropoietin normal. -Very likely due to asthma. -She declines albuterol and says won't take any type of inhaler. Declines pulmonary evaluation. Plan: -Repeat CBC. Portions of this documentation were copied and pasted from my previous office visit note dated 03/19/2024 in order to provide a cohesive continuity of the history. The note has been reviewed and edited and updated as necessary. I spent a total of 20 minutes on the date of the service which included preparing to see the patient, [id number] patient care, completing clinical documentation, performing a medically appropriate examination, counseling and educating the patient/family/caregiver, ordering medications, tests, or procedures, communicating with other HCPs (not separately reported), and communicating results to the patient/family/caregiver. Spencer Velarde DO documented in this encounter [facility] 05-29-2024 Telephone encounter Note Left message for dentist to re-fax form. Judit Jovel LPN [facility] 05-29-2024 Miscellaneous Notes Left message for dentist to re-fax form. Judit Jovel LPN Hazel with [facility] called stating a clearance form was faxed on the 3rd. She is calling to confirm that it was received and of the status of it. documented in this encounter [facility] 05-28-2024 History of Present illness Narrative Radiology Service Progress Note DATE OF SERVICE: May 28, 2024 TIME: 3:56 PM PATIENT IDENTITY VERIFICATION COMPLETED USING TWO (2) STANDARD IDENTIFIERS: Name and Date of confirmed by patient verbally. FALL SCREENING: Has the patient had 2 falls in the last year or 1 fall with injury or currently using an Ambulatory Assistive Device (Walker, Cane, Wheelchair, Crutches, etc.)? No PATIENT GENDER DATA: Assigned female at . status: : No status: NO. PATIENT RELEVANT IMPLANT DATA REVIEWED: Yes PATIENT PRESENTS WITH AN IMPLANTABLE OR ATTACHED MORNING CAREGIVER: No ALLERGIES: Reviewed and unchanged CONTRAST ALLERGY: NO. EXAM: CT -CONTRAST INDUCED NEPHROPATHY RISK FACTORS: Patient age > 60 years CREATININE: Creatinine Date Value Ref Range Status 05/20/2024 0.82 0.58 - 0.96 mg/dL Final 03/02/2024 0.98 (H) 0.58 - 0.96 mg/dL Final 02/14/2024 0.89 0.58 - 0.96 mg/dL Final Estimated Glomerular Filtration Rate Date Value Ref Range Status 05/20/2024 71 >=60 mL/min/1.73m Final Comment: Estimated Glomerular Filtration Rate (eGFR) is calculated using the 2020 CKD-EPI creatinine equation. This equation utilizes serum creatinine, sex, and age as parameters. The creatinine assay has traceable calibration to isotope dilution-mass spectrometry. Refer to KDIGO guidelines for clinical interpretation. In patients with unstable renal function, e.g. those with acute kidney injury, the eGFR may not accurately reflect actual GFR. P.O.C.T. RESULTS: POC done: Yes, See Lab Tab May 28, 2024 TREATMENT: N/A PERIPHERAL IV DATA: Ambulatory: A peripheral IV was started in the Left antecubital site with a Angio cath: 22 gauge. RADIOLOGY DEPARTMENT: CT; Exam(s) Completed: Chest SIGNATURE: RT Deirdre(R) PATIENT NAME: Deangelo Beach DATE: May 28, 2024 TIME: 3:56 PM documented in this encounter [facility] 05-28-2024 Note [facility] 05-27-2024 Telephone encounter Note Scheduled as directed Waleska Cotton [facility] 05-27-2024 Miscellaneous Notes Scheduled as directed Waleska Cotton PSS- please schedule patient to see Dr. Velarde 06/03/2024 @4:00 est complex to review labs and CT. Patient's brother is aware of appointment date and time. Judit Jovel LPN documented in this encounter [facility] 05-27-2024 Telephone encounter Note PSS- please schedule patient to see Dr. Velarde 06/03/2024 @4:00 est complex to review labs and CT. Patient's brother is aware of appointment date and time. Judit Jovel LPN [facility] 05-26-2024 Telephone encounter Note Hazel millard [facility] called stating a clearance form was faxed on the . She is calling to confirm that it was received and of the status of it. [facility] Work Phone: 05-20-2024 Telephone encounter Note New order placed- please file. CT machine overheated today when they attempted to scan patient. Judit Jovel LPN [facility] 05-20-2024 Miscellaneous Notes New order placed- please file. CT machine overheated today when they attempted to scan patient. Judit Jovel LPN Please place new order for CT Thank you documented in this encounter [facility] 05-20-2024 Telephone encounter Note Please place new order for CT Thank you [facility] 05-06-2024 Note [facility] 05-06-2024 History of Present illness Narrative Written discharge instructions given and reviewed with patient. Patient verbalizes understanding. Encouraged to call with any questions or concerns. Instruction for 4 week phone follow up appointment given by Dr. Nava. 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 DELIVERED DOSE: 4005 cGy in 15 fractions treating to the 97.4% isodose line with 6MV and 2 vmat osorio. ELAPSED TIME: 20 days. TOLERANCE/ RESPONSE: She is doing well without any specific new complaints. REMARKS: She tolerated radiation treatment well. Four week follow-up with me. Staff Physician AGUILAR NAVA M.D. / 0:51 AM Electronically Signed cc: Solis Lambert [address] [place] [address] Spencer Velarde [address] [facility] [address] documented in this encounter [facility] 05-06-2024 Note [facility] 05-05-2024 History of Present illness Narrative Radiation Oncology - On Treatment Review (OTR) Note PATIENT NAME: Deangelo Beach PATIENT DIAGNOSIS: Solitary distant recurrence of renal call carcinoma in the right paratracheal node. COURSE: palliative AREA TREATED: Right paratracheal node CURRENT DOSE: 3738 cGy in 14 fx PLANNED DOSE: 4005 cGy in 15 fx Status: Post-menopausal SUBJECTIVE: Ms. Beach continues to do well without any specific new complaints. EXAM: KPS: 100 General Appearance: Alert and oriented. No acute distress. IMAGING/LAB RESULTS: None Treatment chart checked: Yes Patient treatment site reviewed and verified:Yes CBCTs reviewed and current:Yes Medications started: None ASSESSMENT/PLAN: Clinically stable. No signs of toxicity. Continue radiation treatment as planned. Mateo Joe MD Radiation Therapy - Nursing Note (OTV) PATIENT NAME: Deangelo Beach PATIENT May 05, 2024 [facility] NOTE TYPE: CHEST Subjective Data no complaints Additional Data Do you want to see a Rib Stiffener And Heel Dipper? No Status: Post-menopausal. Stress Scale: On a scale of 0 to 10, what number best describes how much distress you have experienced in the past week?(0 being no distress and 10 being extreme distress) 0 Social work notified: Pt denied need to see social services counselor at this time. Nursing Assessment Fatigue: increased fatigue over baseline but not altering normal activities Appetite: good Nutritional Intake: Regular oral intake. Weight Gain/Loss: No Ambulatory weight history: Last 6 Encounter Wt Readings: Date: Wt: 03/23/2024 70.8 kg (156 lb) 03/19/2024 70.3 kg (155 lb) 03/10/2024 72.6 kg (160 lb) 03/02/2024 70.6 kg (155 lb 10.3 oz) 02/21/2024 70.3 kg (155 lb) 02/14/2024 71.7 kg (158 lb) Nausea:None Vomiting: None Bowel Function: normal bowel movements Erythema/Hyperpigmentation:none Desquamation:none Rash:none Skin Care: Aquaphor Skin Sensation: Within Normal Limits Focused Assessment CHEST: Dysphagia: No. Pain with swallowing: No. Shortness of breath: No. Cough: Mild. SIGNED by: Kiana Coffey RN documented in this encounter [facility] 05-05-2024 Note [facility] 05-05-2024 Note [facility] 04-28-2024 Note [facility] 04-28-2024 Note [facility] 04-21-2024 Note [facility] 04-21-2024 History of Present illness Narrative Radiation Oncology - On Treatment Review (OTR) Note PATIENT NAME: Deangelo Beach PATIENT DIAGNOSIS: Solitary distant recurrence of renal call carcinoma in the right paratracheal node. COURSE: palliative AREA TREATED: Right paratracheal node CURRENT DOSE: 1068 cGy in 4 fx PLANNED DOSE: 4005 cGy in 15 fx Status: Post-menopausal SUBJECTIVE: She is doing well without any specific new complaints. EXAM: KPS: 100 General Appearance: Alert and oriented. No acute distress. IMAGING/LAB RESULTS: None Treatment chart checked: Yes Patient treatment site reviewed and verified:Yes CBCTs reviewed and current:Yes Medications started: None ASSESSMENT/PLAN: Clinically stable. No signs of toxicity. Continue radiation treatment as planned. Aguilar Nava MD Radiation Therapy - Nursing Note (OTV) PATIENT NAME: Deangelo Beach PATIENT April 21, 2024 [facility]: [place] NURSING NOTE TYPE: CHEST Subjective Data no complaints Additional Data Do you want to see a Rib Stiffener And Heel Dipper? No Status: Post-menopausal. Stress Scale: On a scale of 0 to 10, what number best describes how much distress you have experienced in the past week?(0 being no distress and 10 being extreme distress) 0 Social work notified: Pt denied need to see social services counselor at this time. Nursing Assessment Fatigue: none Appetite: good Nutritional Intake: Regular oral intake. Weight Gain/Loss: No Ambulatory weight history: Last 6 Encounter Wt Readings: Date: Wt: 03/23/2024 70.8 kg (156 lb) 03/19/2024 70.3 kg (155 lb) 03/10/2024 72.6 kg (160 lb) 03/02/2024 70.6 kg (155 lb 10.3 oz) 02/21/2024 70.3 kg (155 lb) 02/14/2024 71.7 kg (158 lb) Nausea:None Vomiting: None Bowel Function: normal bowel movements Erythema/Hyperpigmentation:none Desquamation:none Rash:none Skin Care: Aquaphor Skin Sensation: Within Normal Limits Focused Assessment CHEST: Dysphagia: No. Pain with swallowing: No. Shortness of breath: No. Cough: None. SIGNED by: Kiana Coffey RN documented in this encounter [facility] 04-21-2024 Note [facility] 03-30-2024 Note [facility] 03-30-2024 History of Present illness Narrative Radiation Therapy - Patient Education Note PATIENT NAME: Deangelo Beach PATIENT March 30, 2024 [facility]: [place] READINESS TO LEARN Cognitive Ability: Alert and oriented Motivation to learn: Eager Interested Family Support: Unable to assess - Family not present Instruction provide to: Patient Patient learns best by: Multiple Methods Factors effecting learning: Emotional Factors: Anxious Physical limitations effecting learning: None LEARNING RESPONSE Diagnosis: Pt simulated today for radiation therapy to right paratracheal node. Education Topic/Teaching Points: Radiation therapy, Side effects, and OTV: Method of instruction: Teach Back skin care Individual instruction Written instruction/Handouts Verbal instruction Patient /Family response: Patient verbalized understanding of radiation treatments, side effects, OTV, and transportation. Follow-up plan: Patient instructed to call with any further issues Contact information given. Supplemental material: Informational handouts on Department phone list, Esophagitis/Mucositis, and liliana instructions, XRT sheet and Aquaphor handout. Referral (recommendation): None, Pt denied need for social work, van service, and professor of genetics. Patient has an Onbody or Implanted device: No Signed by: Marcia Bowen RN documented in this encounter [facility] 03-30-2024 History of Present illness Narrative DEANGELO BEACH [id number] 03/30/2024 [facility] Department of Radiation Oncology [facility] RADIATION ONCOLOGY SIMULATION NOTE DATE OF SIMULATION: 03/30/2024 MACHINE: Siemens Definition CT Simulator Diagnosis: Solitary distant recurrence of renal call carcinoma in the right paratracheal node. AREA:Right paratracheal node PATIENT POSITION: Supine. CONTRAST: None PROTOCOL: None BLOCKING: Custom blocking to be determined at treatment planning. FIXATION DEVICE: In order to achieve accurate and reproducible treatments, the patient is to be immobilized with SBRT Civco System, full body vac bag and compression belt. PROCEDURE: A time-out was conducted and recorded by the therapist. Patient was simulated on the CT scanner for external beam radiation therapy. Treatment site was marked by the simulation therapist. ASSESSMENT/PLAN: Patient tolerated simulation procedure well. Treatments will be initiated after treatment planning. The patient is scheduled for a verification simulation on the treatment machine to ensure proper set-up and field arrangement is correct prior to the first treatment of primary and boost osorio if applicable. Electronically Signed Aguilar Nava M.D./rubi 42:15 PM documented in this encounter [facility] 03-30-2024 History of Present illness Narrative DEANGELO BEACH [id number] 03/30/2024 [facility] Department of Radiation Oncology Treatment Planning Note For reasons stated in the consult note, Deangelo Beach is a candidate for radiation therapy. Based on review and interpretation of the relevant diagnostic studies together with the exam findings, Deangelo Beach was simulated on 03/30/2024 at which time the target volume and/or requisite osorio were delineated, as indicated in the simulation note, to be treated according to the prescription. An ITV was created from all the phases of respiratory motion captured by the 4DCT image sets. Motion management allowed for design of patient specific planning target volume and reduced the radiation exposure to normal tissues. The treatment target and organs at risk were contoured on the simulation scan using the fused PET /CT. After reviewing multiple treatment plans with dosimetry, the best plan was approved to deliver the prescribed course of radiation to the target area using inverse planning to allow for the best isodose distribution, treating to the 97.4% isodose line with 6MV and 2 vmat osorio. Custom MLC for IMRT were the treatment device(s) used to shape/modify the beams. Limiting dose to normal tissue was confirmed upon review of the calculated dose volume histogram. IMRT planning was used because it best met the dose/volume constraints for the organs at risk for this patient, better than what could be achieved using conventional or 3D planning. The specific dose requirements for the PTV, organs at risk and dose-volume histograms are contained in this treatment plan and/or elsewhere in the medical record. A completed summary of this plan dated 04/13/2024 incorporated herein by reference includes dose, beam arrangements, energy, blocking, isodose distribution, and/or ports and DVH. Electronically Signed Aguilar Nava M.D. 1:09 AM documented in this encounter [facility] 03-30-2024 Note [facility] 03-30-2024 Note [facility] 03-23-2024 Nurse Note Radiation Therapy - Nursing Note (Consult) PATIENT NAME: Deangelo Beach PATIENT March 23, 2024 [facility]: [place] Chief Complaint: consult Reason for visit: Consult. Referring physician: Internal provider Dr Velarde Subjective Data: no complaints Additional Data Do you want to see a Rib Stiffener And Heel Dipper? No Are you interested in information about fertility? No Status: Post-menopausal Stress Scale: On a scale of 0 to 10, what number best describes how much distress you have experienced in the past week?(0 being no distress and 10 being extreme distress) 5 Social work notified: no SIGNED by: Marcia Bowen RN [facility] 03-23-2024 Nurse Note Radiation Therapy - Nursing Note (Consult) PATIENT NAME: Deangelo Beach PATIENT March 23, 2024 [facility] [place] Chief Complaint: consult Reason for visit: Consult. Referring physician: Internal provider Dr Velarde Subjective Data: no complaints Additional Data Do you want to see a Rib Stiffener And Heel Dipper? No Are you interested in information about fertility? No Status: Post-menopausal Stress Scale: On a scale of 0 to 10, what number best describes how much distress you have experienced in the past week?(0 being no distress and 10 being extreme distress) 5 Social work notified: no SIGNED by: Marcia Bowen RN documented in this encounter [facility] 03-23-2024 Note [facility] 03-23-2024 History of Present illness Narrative Radiation Oncology - New Patient/Consult Note PATIENT NAME: Deangelo Beach PATIENT REQUESTING PROVIDER: Dr. Spencer Velarde DIAGNOSIS: Solitary distant recurrence of renal call carcinoma in the right paratracheal node. HPI: 84 year old female who presents with above diagnosis, for an opinion regarding the role of radiation therapy in the management of the patient's disease. Final recommendations will be communicated back to the requesting physician by way of the shared medical record, or letter to requesting physician via US mail. 84 year old woman who has history of renal cell carcinoma in 2009 treated with right nephrectomy. She was doing well until this year when she had cough and CTA in November showed a 2 x 3.2 cm heterogeneous and lobulated right paratracheal mass. PET/CT scan on 01/21/24 showed only mild uptake in the right paratracheal node with SUV of 2.3. There was uptake in the right inguinal node measuring 9.7 mm with SUV of 4.2. She underwent bronchoscopy and EBUS on 03/06/24. Biopsy of the 4R node showed metastatic carcinoma with clear cell features consistent with renal origin. TBNA of station 7 node was negative for malignant cells. ALLERGIES Allergen Reactions Cat Dander Hives Zanaflex [Tizanidin* Hives Latex Rash Current Outpatient Medications on File Prior to Visit Medication Sig pravastatin (PRAVACHOL) 40 mg tablet Take 1 tablet by mouth once daily. PARoxetine (PAXIL) 40 mg tablet Take 1 tablet by mouth once daily. montelukast (SINGULAIR) 10 mg tablet Take 1 tablet by mouth once daily. vit A/vit C/vit E/zinc/copper (ICAPS AREDS ORAL) Take 1 tablet by mouth two times a day. No current facility-administered medications on file prior to visit. PAST MEDICAL HISTORY Diagnosis Date SALMA (acute kidney injury) (HCC) Asthma Cholelithiasis Chronic lower back pain Diverticulosis Environmental and seasonal allergies Generalized anxiety disorder History of renal cell cancer 2009 Hypercholesterolemia Hypertension IBS (irritable bowel syndrome) Macular degeneration Mediastinal mass Multiple renal cysts Onychomycosis Prior radiation therapy, collagen vascular disease, or inflammatory bowel disease: No Any implanted or external electric devices? No status: Post-menopausal. PAST SURGICAL HISTORY Procedure Laterality Date PAST SURGICAL HISTORY OF 03/06/2024 bronchoscopy with biopsy of mediastinal mass REMV KIDNEY/URETER,SAME INCIS Right VAGINAL HYSTERECTOMY FAMILY HISTORY Problem Relation Age of Onset Macular Degen Mother Hypertension Mother Heart Attack Father Hyperlipidemia Father Hyperlipidemia Sister Hypertension Sister Hyperlipidemia Brother Macular Degen Brother Social History Tobacco Use Smoking status: Never Smokeless tobacco: Never Vaping Use Vaping status: Never Used Substance Use Topics Alcohol use: Never Drug use: Never COMPLETE REVIEW OF SYSTEMS: GENERAL: feeling well without fatigue, no recent change in weight HEENT: denies HINTON, change in hearing or vision, no other ENT complaints NECK: denies swelling or pain in neck RESPIRATORY: no cough, no wheezing or shortness of breath CARDIOVASCULAR: no chest pain, no palpitations GI: normal appetite, tolerating PO well, BMs normal, and no abdominal pain : urination is normal MUSCULOSKELETAL: denies any painful or swollen joints, no muscle aches HEMATOLOGY/LYMPHOLOGY: negative for prolonged bleeding, no swollen lymph nodes NEURO: no numbness or paresthesias and no weakness of the extremities PHYSICAL EXAM: VS: BP 131/75 Pulse 84 Temp 36.2 C (97.2 F) (Temporal) Resp 17 Wt 70.8 kg (156 lb) SpO2 95% BMI 25.31 kg/m KPS: 90 General Appearance: Alert and oriented. No acute distress. HEENT: NCAT. Sclera anicteric. EOMI. Neck: Normal ROM. Chest: No respiratory distress. Musculoskeletal: Normal ROM in extremities. Neuro: Speech fluent. Gait normal. No focal deficits. Hematologic: No signs of active bleeding. RADIOLOGY/LABORATORY DATA: see HPI ASSESSMENT AND PLAN: 84 year old woman with solitary distant recurrence of renal call carcinoma in the right paratracheal node. Because of her somewhat frail nature, systemic therapy is deferred for now. I recommend SBRT to the right paratracheal node. I explained the rationale, benefits, alternative management options and potential complications of radiation treatment to the patient and she understands and agrees to proceed. It was explained and understood that other personnel such as radiation therapists, ota, and physicists will participate in planning and delivery of radiation treatment. Permanent tattoo tse will be placed to aid with positioning for daily treatment and the patient consented. Thank you very much for allowing us to participate in her care. Signed by: Aguilar Nava MD cc: Solis Lambert [address] [place] [address] Spencer Velarde [address] [facility] [id number] documented in this encounter [facility] 03-19-2024 Note [facility] 03-19-2024 History of Present illness Narrative Oncologic problem(s): 1) metastatic recurrence of renal cell carcinoma. HPI: The patient is an 84 yo female with PMH significant for RCC. The patient developed a cough in late November. She went to urgent care. Evidently she was directed to the ED for concern of PE. CTA of the chest was performed as outlined below. Previous history of right nephrectomy for renal cell carcinoma in 2009. She had surveillance CTs for several years. She also had a CT of the abdomen pelvis done in July of this year for reasons unclear presently. CT A/P 07/2023: FINDINGS: LOWER THORAX: Coronary artery calcifications. Lung bases are clear. No cardiomegaly. No significant pericardial effusion. ABDOMEN: LIVER: Unremarkable. Homogeneous. GALLBLADDER AND BILE DUCTS: Cholelithiasis. No gallbladder distention or wall edema. No intra- or extrahepatic biliary ductal dilation. PANCREAS: Unremarkable. No focal cystic mass. SPLEEN: Unremarkable. Normal size without focal cystic or solid mass. ADRENALS: Unremarkable. No nodules. KIDNEYS AND URETERS: Right kidney is absent. Multiple parapelvic cysts left kidney. No hydronephrosis. STOMACH AND BOWEL: Scattered diverticula without diverticulitis. No stomach or bowel distention. PELVIS: APPENDIX: Normal appendix. BLADDER: Unremarkable. REPRODUCTIVE: Hysterectomy. Simple appearing cyst measuring 3.9 cm right adnexa unchanged since previous exam. Simple appearing cyst measuring 3.9 cm left adnexa unchanged since previous exam. ABDOMEN and PELVIS: INTRAPERITONEAL SPACE: Unremarkable. No ascites or other fluid collection. No free air. BONES/JOINTS: Unremarkable. No suspicious lytic or blastic abnormality. SOFT TISSUES: Unremarkable. No discrete abdominal or pelvic wall hernia. VASCULATURE: See above. LYMPH NODES: Unremarkable. No enlarged lymph nodes. CT/Abdomen/Pelvis without Cont IMPRESSION: 1. Multiple parapelvic cysts left kidney. No no hydronephrosis. 2. Cholelithiasis. 3. Scattered diverticula without diverticulitis. 4. Bilateral simple appearing cysts each measuring 3.9 cm unchanged as previous exam. No follow-up imaging necessary. CTA Chest 12/10/2023: Lung-RADS category 4X: Recommend diagnostic chest CT with and without contrast, PET/CT may be considered if there is a greater than 8 mm solid component, tissue sampling, and/or referral for further clinical evaluation. Electronically Signed: Marce Burt MD at 8:10 EDT , Patrizia. : Jose Parmar MD, confirmed on 12/07/2023 15:54:36 (ET) that the healthcare facility has received the radiology report. Signed ADDENDUM by Dr. Marce Burt MD on 12/07/23 at 1545 [id number] HISTORY: Elevated D dimer. TECHNIQUE: CT angiogram of the chest was performed after the intravenous administration of 100 mL Isovue-370. Post-processing of the angiographic images was performed with multiplanar reformation and 3D reconstruction. Individualized dose optimization techniques were used for this CT. 1079 images. COMPARISON: XR same day. FINDINGS: CENTRAL AIRWAYS: Patent. LUNGS: Mild bilateral bronchial wall thickening. 6 mm noncalcified nodule in the left lower lobe adjacent to the diaphragm. PLEURA: No pneumothorax or significant pleural effusion. HEART/PERICARDIUM: Heart within normal limits in size with coronary artery disease. Trace pericardial fluid. PULMONARY ARTERIES: No filling defect. AORTA/VESSELS: No thoracic aortic aneurysm or dissection flap. Mild atherosclerosis. MEDIASTINUM/EDGAR: 2 x 3.2 cm heterogeneous and lobulated right paratracheal mass, obscured from streak artifact from the adjacent superior vena cava. Mild mass effect on the superior vena cava and right upper lobe pulmonary vessels. OSSEOUS STRUCTURES: Degenerative change. Chronic mild T3 and T9 compression fractures. UPPER ABDOMEN: Borderline dilated small bowel in the biological sciences professor image. ADDENDUM by Dr. Marce Burt MD on 12/16/23 at 0810 IMPRESSION: undefined ADDENDUM by Dr. Marce Burt MD on 12/07/23 at 1545 IMPRESSION: 3 cm right paratracheal mass, concerning for malignancy or metastatic lymphadenopathy. 6 mm left lower lobe pulmonary nodule; recommend follow-up Mild bronchitis. No evidence of acute pulmonary embolism. PET 01/21/2024: INDICATIONS: An 83-year-old female with history of mediastinal mass formation presenting for initial evaluation. COMPARISON EXAMINATION: CTA of the chest report dated 12/07/23 INDEX LESION SIZE SUV INTERPRETATION Right inguinal region 9.7-mm 4.2 May necessitate histopathologic investigation Right precarinal mediastinum 2.3 Quantitative criteria for viable neoplasm are not fulfilled TECHNIQUE: Following the intravenous administration of 14.5 mCi of F-18 deoxyglucose via the right hand, multiplanar image acquisitions of the neck, chest, abdomen and pelvis to level of mid thigh, obtained at one hour post radiopharmaceutical administration contemporaneously interpreted with the current CT of the neck, chest, abdomen and pelvis, to level of mid thigh, dated 01/21/24 via coregistration and CTA of the chest report dated 12/07/23 reveals: BLOOD GLUCOSE LEVEL:?? 85 mg/dl?HEIGHT:?66 inches?WEIGHT: 155 lbs. FINDINGS: HEAD/NECK: There is no evidence of abnormal increased glucose metabolism in the pharyngeal mucosal space, parapharyngeal space, bilateral-lateral and anterior neck, hypopharynx and distribution of the laryngeal structures. The visualized portion of the cerebral cortical-subcortical structures demonstrate symmetric and preserved glucose metabolism. Prominent tracer concentration is noted in the anterior aspect of the oral cavity in proximity to dental hardware placement most consistent with a component of metallic reconstruction artifact. CHEST: Enhanced tracer concentration is defined in the right upper paratracheal lymph node distribution generating a calculated maximal standard uptake value of 2.3. Pertinent chest CT findings are as follows. There is atherosclerotic calcification defined in the thoracic aorta without evidence of dilatation-aneurysm formation. Coronary arterial calcification is observed. Mediastinal and bilateral axillary soft tissue densities are non-glucose avid. There are no parenchymal densities-nodules defined in the right and left hemithorax with quantitatively significant increased FDG uptake. ABDOMEN/PELVIS: Facilitated uptake is noted in the right inguinal region in a single nodular presentation. The calculated maximal standard uptake value is 4.2. The maximal axial diameter of the corresponding soft tissue density is 9.7-mm. Normal physiologic distribution of the radiopharmaceutical is apparent in the hepatic (3.9) and splenic parenchyma, left renal unit, bladder and visualized intestinal tract. Pertinent abdomen and pelvis CT findings are as follows. 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 Colonic diverticula are defined without evidence of diverticulitis. Bilateral adnexal cyst formation is demonstrated. Cholelithiasis is demonstrated. There is atherosclerotic calcification defined in the abdominal aorta without evidence of dilatation-aneurysm formation. Pelvic arterial calcification is observed. SKELETAL: Degenerative changes are noted in the cervical, thoracic and lumbar spine without evidence of increased radiopharmaceutical concentration. PET/PET/CT Tumor Base -Thigh Init IMPRESSION: 1. The increase in radiopharmaceutical concentration defined in the right inguinal region may necessitate histopathologic analysis secondary to the quantitative degree of uptake. 2. Facilitated FDG concentration noted in the precarinal mediastinum to the right of the midline does not fulfill quantitative criteria for malignant transformation. (Alirio et al, Journal of Clinical Oncology 16:2142, 1998). Bronchoscopy with EBUS. Cytology: OPERATION: EBUS with TBNA PRE-OP DIAGNOSIS: Endobronchial ultrasound TISSUE SUBMITTED: A-F- 4R EBUS DIAGNOSIS CYTOLOGY A. EBUS, TBNA, site 4R #1 (smears): - Category: Atypical. - Scant atypical cells. B. EBUS, TBNA, site 4R #2 (smears): - Category: Suspicious for malignancy. - Atypical cells, suspicious for non-small cell carcinoma. See note. NOTE: The smears show tissue fragments of epithelial cells with large, moderately pleomorphic nuclei with prominent single round nucleoi and vacuolated cytoplasm. The nuclei are crowded and overlapped. These epithelial cells lack cilia. The features are suspicious for non-small cell carcinoma. Clinical and radiographic correlation is recommended. C. EBUS, TBNA, site 4R #3 (smears): - Category: Benign - Rare respiratory epithelial cells and lymphocytes. D. EBUS, TBNA, site 4R #4 (smears): - Category: Benign - Rare respiratory epithelial cells and lymphocytes. E. EBUS, TBNA, site 4R #5 (smears): - Category: Benign - Rare respiratory epithelial cells and lymphocytes. F. EBUS, TBNA, site 4R fluid (cytospin and cellblock): - Category: Benign - Rare respiratory epithelial cells and lymphocytes COMMENT The specimen is evaluated at the time of biopsy by Dr. Villanueva. Immediate Evaluation = Rapid onsite evaluation: A: Negative for malignant cells. A few lymphocytes are noted. Respiratory epithelial cells are noted B: Negative for malignant cells. Predominantly respiratory epithelial cells noted. C: Negative for malignant cells. Predominantly respiratory epithelial cells noted. D: Bloody specimen. Negative for malignant cells. Rare epithelial cells. E: Negative for malignant cells. Lymphocytes are noted. Rare respiratory epithelial cells. CONSULTATION REPORT FROM [facility]: INTERPRETATION: The specimen is sent to [facility] for expert opinion, reviewed by Dr. Hernandez and the above diagnosis is rendered. The complete report is viewable in the patient's EMR As per EMR, the patient has history of right kidney cancer, s/p nephrectomy. Clinical correlation and appropriate follow up are necessary. Initial consultation 02/14/2024: She feels well in general. Moved from [facility] to [place] to be closer to her brother and [id number]. However she lives independently and is capable of ADLs and all IADLs. Cough is resolved. Has some mild chest pain. Presents for ongoing oncologic management. Interim history: Underwent bronchoscopy on 03/09. Biopsies obtained from subcarinal lymph node that measured [address] 4-hour lymph node was 18.3 mm. 13 samples were obtained. Pathology: FINAL DIAGNOSIS A. Lymph node, 4R, biopsy: - Metastatic carcinoma, consistent with renal origin (see comment). Diagnosis Comment A. Immunohistochemical stains show that the tumor cells are positive for CAM5.2 and PAX8 and are negative for TTF-1 and p40. These findings are consistent with the above diagnosis. Cough completely resolved. Not short of breath at rest and with walking. No wheezing. PAST MEDICAL HISTORY Diagnosis Date SALMA (acute kidney injury) (HCC) Asthma Cholelithiasis Chronic lower back pain Diverticulosis Environmental and seasonal allergies Generalized anxiety disorder History of renal cell cancer 2009 Hypercholesterolemia Hypertension IBS (irritable bowel syndrome) Macular degeneration Mediastinal mass Multiple renal cysts Onychomycosis PAST SURGICAL HISTORY Procedure Laterality Date PAST SURGICAL HISTORY OF 03/06/2024 bronchoscopy with biopsy of mediastinal mass REMV KIDNEY/URETER,SAME INCIS Right VAGINAL HYSTERECTOMY pravastatin (PRAVACHOL) 40 mg tablet Take 1 tablet by mouth once daily. PARoxetine (PAXIL) 40 mg tablet Take 1 tablet by mouth once daily. montelukast (SINGULAIR) 10 mg tablet Take 1 tablet by mouth once daily. vit A/vit C/vit E/zinc/copper (ICAPS AREDS ORAL) Take 1 tablet by mouth two times a day. ALLERGIES Allergen Reactions Cat Dander Hives Zanaflex [Tizanidin* Hives Latex Rash Social History Tobacco Use Smoking status: Never Smokeless tobacco: Never Vaping Use Vaping status: Never Used Substance Use Topics Alcohol use: Never Drug use: Never FAMILY HISTORY Problem Relation Age of Onset Macular Degen Mother Hypertension Mother Heart Attack Father Hyperlipidemia Father Hyperlipidemia Sister Hypertension Sister Hyperlipidemia Brother Macular Degen Brother REVIEW OF SYSTEMS: Constitutional: No episodes of fever and night sweats. Not significantly fatigued. Normal appetite. Neuro: No HINTON, vertigo, dizziness and imbalance. No symptoms of neuropathy. HEENT: No recent change in voice, vision or hearing. Resp: No cough, wheeze and hemoptysis. No shortness of breath at rest. No VARGAS. CVS: No exertional chest pain, PND, orthopnea and LE edema. GI: No altered taste or symptoms of stomatitis. No dysphagia and odynophagia. No reflux, n/v, change in bowel habits or abdominal pain. : No dysuria or gross hematuria. No symptoms of bladder outlet obstruction. Endo: No hot flashes. No polyuria and polydipsia. No heat and cold intolerance. Musculoskeletal: No bone, back, joint and muscular pain. Derm: No current rash. No history of jaundice or diffuse pruritis. Heme: No unusual bleeding and unexplained bruising. Psych: Normal mood. PHYSICAL EXAM: Vitals: Blood pressure 103/56, pulse (!) 129, temperature 36.4 C (97.6 F), weight 70.3 kg (155 lb), SpO2 96%. Well-appearing and in no acute distress. EYES: Sclerae are anicteric bilaterally. LYMPHATIC: There is no palpable adenopathy. RESPIRATORY: Inspiratory breath sounds are of normal intensity in all osorio. No rales, wheezes or rhonchi. CARDIOVASCULAR: Rhythm is regular. ABDOMEN: The abdomen is nondistended. Extremities: No swelling or edema. 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 -I reviewed the pathology with the patient and her brother. -Suspect this metastatic deposit in the 4R node has been there quite a while. -Due to her somewhat frail nature with an isolated metastasis, recommended radiation followed by close surveillance. Answered all of her and her brother's questions to their satisfaction. -Discussed with Dr. Nava. Lesion too close to trachea for SBRT so conventional radiation will be an option. Plan: -Referral to Dr. Nava for radiation. -CT chest with IV contrast followed by office visit in about 2 to 3 months. (D75.1) Polycythemia Assessment: -Observed to have gradual increase in hemoglobin and hematocrit over time. -Lifelong non-smoker. -Query erythropoietin production from metastasis. -Discussed the differential broadly of secondary versus primary polycythemia vera. Plan: -Repeat CBC with staff review. -Check serum erythropoietin level. -If elevated, consider sleep apnea test. -Repeat erythropoietin level if elevated following radiation. -MPN panel. Portions of this documentation were copied and pasted from my previous office visit note dated 02/14/2024 in order to provide a cohesive continuity of the history. The note has been reviewed and edited and updated as necessary. I spent a total of 40 minutes on the date of the service which included preparing to see the patient, [id number] patient care, completing clinical documentation, performing a medically appropriate examination, counseling and educating the patient/family/caregiver, ordering medications, tests, or procedures, communicating with other HCPs (not separately reported), and communicating results to the patient/family/caregiver. Spencer Velarde DO documented in this encounter [facility] 03-19-2024 Nurse Note Est. Pt, discuss recent BX results Maria R Martinez LPN [facility] 03-19-2024 Nurse Note Est. Pt, discuss recent BX results Maria R Martinez LPN documented in this encounter [facility] 03-17-2024 Telephone encounter Note Spoke with patient's brother and reviewed provider's message with him. He voiced understanding. He stated he will try to stay on her about taking the medication. Alexa Mcdaniels LPN [facility] 03-17-2024 Miscellaneous Notes Spoke with patient's brother and reviewed provider's message with him. He voiced understanding. He stated he will try to stay on her about taking the medication. Alexa Mcdaniels LPN If she has not been compliant with the 40 mg dosage, I would have her resume this and recheck in 3 months. Pts brother called and is notified of providers results and instructions. He voices understanding. He told his sister to let providers office know that she had stopped taking her Pravastatin 40 mg a while ago and that was probably why her cholesterol was up. He didn't know if provider still wanted to increase it or just wanted her to start taking the 40 mg again. Silvia Horn RN Rx sent. Recheck fasting lipid panel in 3 months. Patient returns call and messages below reviewed. Patient is agreeable to the higher dose of pravastatin. Pended for [place]cak[facility] Mead. Melania Alanis RN Phoned patient and spoke with her brother and reviewed message with him. He stated he will discuss with her and then one of them will call back in and let us know either way. Alexa Mcdaniels LPN ----- Message from Solis Lambert MD sent at 03/13/2024 7:08 AM EST ----- Normal thyroid level. Total cholesterol level is high despite treatment with 40 mg pravastatin. Recommend increasing to 80 mg daily and rechecking in 3 months. Will send new rx if agreeable. documented in this encounter [facility] 03-17-2024 Telephone encounter Note If she has not been compliant with the 40 mg dosage, I would have her resume this and recheck in 3 months. [facility] 03-17-2024 Telephone encounter Note Pts brother called and is notified of providers results and instructions. He voices understanding. He told his sister to let providers office know that she had stopped taking her Pravastatin 40 mg a while ago and that was probably why her cholesterol was up. He didn't know if provider still wanted to increase it or just wanted her to start taking the 40 mg again. Silvia Horn RN [facility] 03-17-2024 Telephone encounter Note Rx sent. Recheck fasting lipid panel in 3 months. [facility] 03-16-2024 Telephone encounter Note Patient returns call and messages below reviewed. Patient is agreeable to the higher dose of pravastatin. Pended for [place] Mead. Melania Alanis RN [facility] 03-13-2024 Telephone encounter Note Phoned patient and spoke with her brother and reviewed message with him. He stated he will discuss with her and then one of them will call back in and let us know either way. Alexa Mcdaniels LPN [facility] 03-13-2024 Telephone encounter Note ----- Message from Solis Lambert MD sent at 03/13/2024 7:08 AM EST ----- Normal thyroid level. Total cholesterol level is high despite treatment with 40 mg pravastatin. Recommend increasing to 80 mg daily and rechecking in 3 months. Will send new rx if agreeable. [facility] 03-10-2024 Note [facility] 03-10-2024 History of Present illness Narrative Chief Complaint Patient presents with: Establish Care HPI Deangelo Beach is a 84 year old female who presents here today for establish care. Previously seeing Dr. Navas in [place] with last OV more than 1 year ago. Ran out of her medications about 1 year ago. Patient has been following up with Dr. Velarde's office for oncology and Dr. Pena's office for pulmonology for 3 cm mediastinal mass which was found on CT chest in November when evaluating patient for possible PE. Had biopsy completed which is still pending. Patient states she has history of Asthma, but is only taking Singulair and has not needed and inhaler in years. Not interested in inhaler at this time and would like refill on Singulair. Needs refill on her metoprolol today which she takes for HTN. BP well controlled today. Does not monitor BP at home. Denies HTN symptoms. Has history of Anxiety and was on Paxil 40 mg daily which worked well for her symptoms without side effects. Has merari feeling more anxious since they found her mass and has had a hard time sleeping. Would like to go back on the Paxil. Denies depression symptoms, SI/HI, panic symptoms. Not interested in counseling at this time. Requesting COVID and Prevnar 20 vaccine today. Past medical history, appointments, medications, allergies reviewed. Previous Medical History PAST MEDICAL HISTORY Diagnosis Date Allergies Generalized anxiety disorder History of renal cell cancer 2009 Hypercholesterolemia Hypertension Macular degeneration Mediastinal mass Previous Surgical History PAST SURGICAL HISTORY Procedure Laterality Date REMV KIDNEY/URETER,SAME INCIS Right VAGINAL HYSTERECTOMY Family History FAMILY HISTORY Problem Relation Age of Onset Macular Degen Mother Hypertension Mother Heart Attack Father other (Hypercholesterolemia) Father other (Heart MurMur) Sister other (Hypercholesterol) Sister Hypertension Sister Macular Degen Brother other (Hypercholesterol) Brother Patient Allergies ALLERGIES Allergen Reactions Cat Dander Hives Latex Rash Current Medications Current Outpatient Medications on File Prior to Visit Medication Sig PARoxetine ER (PAXIL CR) 25 mg 24 hr tablet Take 25 mg by mouth once daily. Unsure of dose vit A/vit C/vit E/zinc/copper (ICAPS AREDS ORAL) Take 1 tablet by mouth two times a day. metoprolol succinate ER (TOPROL XL) 25 mg 24 hr tablet Take 25 mg by mouth once daily. tiZANidine (ZANAFLEX) 4 mg tablet Take 1 tablet by mouth at bedtime as needed (muscle spasms). celecoxib (CELEBREX) 100 mg capsule TAKE 1 PILL BY MOUTH WITH FOOD UP TO EVERY 12 HOURS NEEDED FOR PAIN (Patient not taking: Reported on 03/10/2024) montelukast (SINGULAIR) 10 mg tablet Take 10 mg by mouth once daily. pravastatin (PRAVACHOL) 40 mg tablet Take 40 mg by mouth once daily. (Patient not taking: Reported on 03/10/2024) No current facility-administered medications on file prior to visit. Social History Social History Tobacco Use Smoking status: Never Smokeless tobacco: Never Vaping Use Vaping status: Never Used Substance Use Topics Alcohol use: Never Drug use: Never Review of Symptoms REVIEW OF SYSTEMS GENERAL: No weight loss, malaise or fevers RESPIRATORY: Positive for occasional dry cough. Negative for hemoptysis, wheezing, COPD, dyspnea or shortness of breath CARDIOVASCULAR: Negative for chest pain, leg swelling, hypertension, CHF or palpitations GI: No nausea, vomiting, or diarrhea SKIN: Negative for lesions, rash, and itching EXAM: BP 130/64 Pulse 107 Resp 18 Ht 167.2 cm (5' 5.83) Wt 72.6 kg (160 lb) SpO2 97% BMI 25.96 kg/m General Appearance: Well appearing, alert, in no acute distress, well-hydrated, well nourished.. Skin: Skin color, texture, turgor normal, no suspicious rashes or lesions. Lungs: Lungs clear to auscultation. No wheezing, rhonchi, rales.. Heart: RRR without murmur, gallop, or rubs. No ectopy. Abdomen: Normal abdominal exam, Abdomen soft, non-tender. Bowel sounds normal. No masses, organomegaly. Extremities: No deformities, edema, skin discoloration, clubbing or cyanosis. Good capillary refill. . Health Maintenance List Depression Screening Never done Anxiety Screening Never done DTaP,Tdap,Td Vaccine(1 - Tdap) Never done Pneumococcal Vaccine: 65+(1 of 1 - PCV) Never done RSV Vaccine(1 - 1-dose 75+ series) Never done Advance Directive Discussion Never done Covid-19 Vaccine() due on 12/15/2023 Diabetes Screening due on 03/02/2027 Bone Density Screening Completed Influenza Vaccine Completed Shingrix Vaccine Completed Data reviewed Latest Ref Rng 03/02/2024 WBC 3.70 - 11.00 k/uL 6.65 RBC 3.90 - 5.20 m/uL 5.30 (H) Hemoglobin 11.5 - 15.5 g/dL 16.3 (H) Hematocrit 36.0 - 46.0 % 50.0 (H) MCV 80.0 - 100.0 fL 94.3 MCH 26.0 - 34.0 pg 30.8 MCHC 30.5 - 36.0 g/dL 32.6 RDW-CV 11.5 - 15.0 % 12.8 Platelet Count 150 - 400 k/uL 254 MPV 9.0 - 12.7 fL 10.6 Neut% % 53.7 Abs Neut (ANC) 1.45 - 7.50 k/uL 3.58 Lymph% % 27.2 Abs Lymph 1.00 - 4.00 k/uL 1.81 [place]% % 9.2 Abs [place] <0.87 k/uL 0.61 Eosin% % 9.2 Abs Eosin <0.46 k/uL 0.61 (H) Baso% % 0.5 Abs Baso <0.11 k/uL 0.03 Immature Gran % % 0.2 IMMATURE GRANS (ABS) <0.10 k/uL <0.03 NRBC /100 WBC 0.0 Absolute nRBC <0.01 k/uL <0.01 DTYPE Auto Glucose 74 - 99 mg/dL 86 BUN 7 - 21 mg/dL 18 Creatinine 0.58 - 0.96 mg/dL 0.98 (H) Sodium 136 - 144 mmol/L 141 Potassium 3.7 - 5.1 mmol/L 4.9 Chloride 98 - 107 mmol/L 104 CO2 22 - 30 mmol/L 26 Anion Gap 8 - 15 mmol/L 11 Calcium 8.5 - 10.2 mg/dL 10.1 eGFR >=60 mL/min/1.73m 57 (L) Legend: (H) High (L) Low ASSESSMENT/PLAN: 1. Encounter for medical examination to establish care - ICD9: V70.9, ICD10: Z00.00 (primary diagnosis) - Counseled on healthy diet and regular exercise - Patient counseled on and acknowledged vaccine benefits/risks/side effects; VIS provided: COVID-19 and Pneumococcal 2. Generalized anxiety disorder - ICD9: 300.02, ICD10: F41.1 Patient's symptoms uncontrolled off Paxil. Requesting refill today. Will resume 40 mg dosage and check TSH. F/u in 6 weeks. - THYROID STIMULATING HORMONE 3. Primary hypertension - ICD9: 401.9, ICD10: I10 BP controlled at recent OVs without rx. - Recommend home blood pressure monitoring, to bring results to next visit - Encouraged sodium restriction, DASH or Mediterranean diet - Recommend regular aerobic exercise 4. 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 F/u recommendations from oncology and pulmonology. 5. Hypercholesterolemia - ICD9: 272.0, ICD10: E78.00 Obtain lipid panel. Restart statin. - LIPID PANEL, NONFASTING 6. Chronic low back pain, unspecified back pain laterality, unspecified whether sciatica present - ICD9: 724.2, 338.29, ICD10: M54.50, G89.29 No complaint of pain today. Will monitor. 7. Encounter for immunization - ICD9: V03.89, ICD10: Z23 - [employer] COVID-19 VACCINE AGE 12+ YR (COMIRNATY) - PNEUMOCOCCAL VACCINE, 20 VALENT (PREVNAR 20) Solis Lambert MD documented in this encounter [facility] 03-06-2024 Note [facility] 03-02-2024 Note [facility] 03-02-2024 History of Present illness Narrative Images from the original note were not included. INTERVENTIONAL PULMONARY MEDICINE NEW PATIENT VISIT Patient Name: Deangelo Beach PRIMARY CARE PHYSICIAN: Solis Lambert MD REFERRING PHYSICIAN: Spencer Velarde DO Patient sent by Dr. Velarde for an opinion regarding abnormal chest imaging. My final recommendations/evaluation will be communicated back to the requesting physician by way of shared medical record or letter via US mail. CHIEF COMPLAINT: abnormal chest imaging HISTORY OF PRESENT ILLNESS: Deangelo Beach is a 84 year old female with a history of RCC who presents for evaluation abnormal chest imaging. Patient presented to with a cough in November and subsequently underwent a chest CT which revealed right upper paratracheal adenopathy. EBUS was performed which showed atypical cells. No respiratory complaints. Able to walk up 2 flights of stairs without symptoms. Patient reports her latex allergy is mild with some skin discoloration if wearing latex gloves for prolonged periods of time, but if latex is used in a medical setting, she does not have issues. Tobacco use history:Never smoker Prior oncologic history: RCC s/p right nephrectomy 2010 Currently taking anticoagulation/antiplatelet medications: No Prior issues with general anesthesia: No PMHx/PSHx: PAST MEDICAL HISTORY Diagnosis Date Allergies Hypercholesterolemia Hypertension Macular degeneration PAST SURGICAL HISTORY Procedure Laterality Date REMV KIDNEY/URETER,SAME INCIS Right VAGINAL HYSTERECTOMY FAMILY HISTORY: FAMILY HISTORY Problem Relation Age of Onset Macular Degen Mother Hypertension Mother Heart Attack Father other (Hypercholesterolemia) Father other (Heart MurMur) Sister other (Hypercholesterol) Sister Hypertension Sister Macular Degen Brother other (Hypercholesterol) Brother SOCIAL HISTORY: Social History Tobacco Use Smoking status: Never Smokeless tobacco: Never Vaping Use Vaping status: Never Used Substance Use Topics Alcohol use: Never Drug use: Never ALLERGIES: ALLERGIES Allergen Reactions Cat Dander Hives Latex Rash CURRENT OUTPATIENT MEDICATIONS: vit A/vit C/vit E/zinc/copper (ICAPS AREDS ORAL) Take 1 tablet by mouth two times a day. tiZANidine (ZANAFLEX) 4 mg tablet Take 1 tablet by mouth at bedtime as needed (muscle spasms). celecoxib (CELEBREX) 100 mg capsule TAKE 1 PILL BY MOUTH WITH FOOD UP TO EVERY 12 HOURS NEEDED FOR PAIN (Patient taking differently: TAKE 1 PILL BY MOUTH WITH FOOD UP TO EVERY 12 HOURS NEEDED FOR PAIN) metoprolol succinate ER (TOPROL XL) 25 mg 24 hr tablet Take 25 mg by mouth once daily. pravastatin (PRAVACHOL) 40 mg tablet Take 40 mg by mouth once daily. montelukast (SINGULAIR) 10 mg tablet Take 10 mg by mouth once daily. REVIEW OF SYSTEMS Review of Systems Constitutional: Negative for chills and fever. Eyes: Negative for visual disturbance. Respiratory: Negative for shortness of breath. Cardiovascular: Negative for chest pain. Gastrointestinal: Negative for abdominal pain. Musculoskeletal: Negative for joint swelling. Skin: Negative for rash. Neurological: Negative for syncope. Hematological: Negative for adenopathy. The remainder of the ROS was negative. PHYSICAL EXAMINATION: VITAL SIGNS: BP 129/59 Pulse 93 Temp (Src) 97.3 (Temporal) Resp 16 Wt 155 lb 10.3 oz (70.6kg) SpO2 95% Physical Exam: GEN: No acute distress, breathing comfortably on RA HEENT: Pupils equal, round reactive to light CV: Regular rate and rhythm PULM: Clear to auscultation bilaterally, no wheeze/rhonchi ABD: Non-distended, non-tender to palpation EXT: Warm and well perfuse, no lower extremity edema SKIN: No rashes on observable skin NEURO: Alert and oriented, sensation grossly intact LAST LAB RESULTS: Personally reviewed. See EHR for full details No results found for: HB, HCT, WBC, PLT CMP: Creatinine 0.89 02/14/2024 IMAGING/STUDIES: Personally reviewed, agree with interpretation of most recent/pertinent studies below. CTs Last CT Chest - Impression Only CT CHEST W IVCON Exam End: 02/14/2024 12:21 PM (Final result) Impression: IMPRESSION: No CT evidence of acute abnormality. Slight increase in size of left lower lobe nodule which may be related to technique/slice selection. Surveillance recommended in 6-12 months. Biapical scarring. Small hiatal hernia. Cholelithiasis. Hepatic steatosis.... PFTs No data to display No data to display No data to display No data to display No data to display IMPRESSIONS: # Right paratracheal PET-avid lesion # Preoperative examination: No obvious contraindication to undergo general anesthesia for the planned procedure. Deangelo Beach presents today for evaluation of abnormal chest imaging. We discussed that the differential diagnosis of the PET-avid lymphnode includes benign etiologies such as infection, inflammation and granuloma, as well as malignant causes such as primary lung cancer or metastatic disease. We discussed options for management of this lung lesion including: surveillance imaging with a repeat CT-chest and transbronchial biopsy via bronchoscopy. Based on the patient's risk factors or prior RCC and imaging findings of PET-avidity, the nodule is concerning for malignancy. After discussion of these options and their risks and benefits, a mutual decision was reached with the patient to proceed with bronchoscopy with biopsy under general anesthesia in an attempt to obtain a diagnosis and guide treatment. We discussed that while the procedure is generally safe and well-tolerated, the risks of the procedure include, but are not limited to: non-diagnostic results, bleeding, damage to the lung in the form of pneumothorax potentially requiring chest tube placement and hospital admission, adverse reactions to general anesthesia (stroke, heart attack), respiratory failure and . The patient expressed understanding of theses risks and benefits and is in agreement with proceeding. Results of the procedure will be forwarded to the patient's referring provider. Written informed consent was obtained today. RECOMMENDATION/PLAN: - EBUS with sampling of 4R Follow up: With referring physician Pre-procedure checklist: - [x] ECG within 1 year without change in symptoms - [x] Labs (CBC, BMP, +/- INR) within 60 days - [x] Imaging up-to-date - [x] Anti-coagulant/anti-platelet medication hold discussed (if applicable) - [x] Anti-diabetic medication hold discussed (if applicable) - [x] NPO status discussed - [x] Bronchoscopy request sent Written and verbal health teaching given to patient, patient verbalizes understanding and agrees with treatment plan. I spent a total of 35 minutes on the date of the service which included preparing to see the patient, [id number] patient care, completing clinical documentation, obtaining and/or reviewing separately obtained history, performing a medically appropriate examination, counseling and educating the patient/family/caregiver, independently interpreting results (not separately reported), and communicating results to the patient/family/caregiver. Electronically Signed: Philippe Pena MD Interventional Pulmonology March 02, 2024 12:54 PM documented in this encounter [facility] 02-18-2024 Note [facility] 02-18-2024 History of Present illness Narrative Bronchoscopy Request: Cleared for scheduling February 18, 2024 Please schedule patient for the following: Outpatient Visit: New Consult with Staff: Patient Choice (Virtual or In-Person) Bronchoscopy Procedures: Diagnostic EBUS Diagnosis/Reason for Bronchoscopy: Adenopathy Timing: Next available Time Allotment/Tier: TIER 2: 2 HOUR Physician Performing Bronchoscopy:Bronch A, B or C Needs Labs: Yes, CBC and BMP Needs EKG: Yes Needs CT prior: No Does the pt need cardiac clearance?: No Is she on anticoagulants/anti-plt therapy?: No Nursing Considerations: (ie: [facility], TB, respiratory isolation, clinical trial, Specific protocol etc.) none 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 Hot inguinal node on PET scan evaluated and cannot be visualized by ultrasound.. Consultation request/referral by: Spencer Velarde MD Reviewed by: MD Mariam Loving MD February 18, 2024 9:27 AM Addendum: CBC with diff: No results found for this basename: WBC,RBC,HB,HCT,MCV,MCH,MCHC,RDWCV, PLT,MPV,NEUTP,LYMPHP,MONOP,EODINP, BASOP,ABSNEUT,ABSLYM,ABSMONO,ABSEO SIN,ABSBASO No results found for: K No results found for: NA No results found for: BUN Creatinine Date Value Ref Range Status 02/14/2024 0.89 0.58 - 0.96 mg/dL Final documented in this encounter [facility] 02-14-2024 History of Present illness Narrative Radiology Service Progress Note DATE OF SERVICE: February 14, 2024 TIME: 12:44 PM PATIENT IDENTITY VERIFICATION COMPLETED USING TWO (2) STANDARD IDENTIFIERS: Name and Date of confirmed by patient verbally. FALL SCREENING: Has the patient had 2 falls in the last year or 1 fall with injury or currently using an Ambulatory Assistive Device (Walker, Cane, Wheelchair, Crutches, etc.)? No PATIENT GENDER DATA: Female. status: : No status: NO. PATIENT RELEVANT IMPLANT DATA REVIEWED: Yes PATIENT PRESENTS WITH AN IMPLANTABLE OR ATTACHED MORNING CAREGIVER: No ALLERGIES: Reviewed and unchanged CONTRAST ALLERGY: NO. EXAM: CT -CONTRAST INDUCED NEPHROPATHY RISK FACTORS: Patient age > 60 years CREATININE: Creatinine Date Value Ref Range Status 02/14/2024 0.89 0.58 - 0.96 mg/dL Final Estimated Glomerular Filtration Rate Date Value Ref Range Status 02/14/2024 64 >=60 mL/min/1.73m Final Comment: Estimated Glomerular Filtration Rate (eGFR) is calculated using the 2020 CKD-EPI creatinine equation. This equation utilizes serum creatinine, sex, and age as parameters. The creatinine assay has traceable calibration to isotope dilution-mass spectrometry. Refer to KDIGO guidelines for clinical interpretation. In patients with unstable renal function, e.g. those with acute kidney injury, the eGFR may not accurately reflect actual GFR. P.O.C.T. RESULTS: POC done: Yes, See Lab Tab February 14, 2024 TREATMENT: N/A PERIPHERAL IV DATA: Ambulatory: A peripheral IV was started in the Left antecubital site with a Angio cath: 22 gauge. RADIOLOGY DEPARTMENT: CT; Exam(s) Completed: Chest SIGNATURE: RT Deirdre(R) PATIENT NAME: Deangelo Beach DATE: February 14, 2024 TIME: 12:44 PM documented in this encounter [facility] 02-14-2024 History of Present illness Narrative Patient self referred for a suspicious 4R node.. HPI: The patient is an 84 yo female with PMH significant for RCC. The patient developed a cough in late November. She went to urgent care. Evidently she was directed to the ED for concern of PE. CTA of the chest was performed as outlined below. Previous history of right nephrectomy for renal cell carcinoma in 2009. She had surveillance CTs for several years. She also had a CT of the abdomen pelvis done in July of this year for reasons unclear presently. CT A/P 07/2023: FINDINGS: LOWER THORAX: Coronary artery calcifications. Lung bases are clear. No cardiomegaly. No significant pericardial effusion. ABDOMEN: LIVER: Unremarkable. Homogeneous. GALLBLADDER AND BILE DUCTS: Cholelithiasis. No gallbladder distention or wall edema. No intra- or extrahepatic biliary ductal dilation. PANCREAS: Unremarkable. No focal cystic mass. SPLEEN: Unremarkable. Normal size without focal cystic or solid mass. ADRENALS: Unremarkable. No nodules. KIDNEYS AND URETERS: Right kidney is absent. Multiple parapelvic cysts left kidney. No hydronephrosis. STOMACH AND BOWEL: Scattered diverticula without diverticulitis. No stomach or bowel distention. PELVIS: APPENDIX: Normal appendix. BLADDER: Unremarkable. REPRODUCTIVE: Hysterectomy. Simple appearing cyst measuring 3.9 cm right adnexa unchanged since previous exam. Simple appearing cyst measuring 3.9 cm left adnexa unchanged since previous exam. ABDOMEN and PELVIS: INTRAPERITONEAL SPACE: Unremarkable. No ascites or other fluid collection. No free air. BONES/JOINTS: Unremarkable. No suspicious lytic or blastic abnormality. SOFT TISSUES: Unremarkable. No discrete abdominal or pelvic wall hernia. VASCULATURE: See above. LYMPH NODES: Unremarkable. No enlarged lymph nodes. CT/Abdomen/Pelvis without Cont IMPRESSION: 1. Multiple parapelvic cysts left kidney. No no hydronephrosis. 2. Cholelithiasis. 3. Scattered diverticula without diverticulitis. 4. Bilateral simple appearing cysts each measuring 3.9 cm unchanged as previous exam. No follow-up imaging necessary. CTA Chest 12/10/2023: Lung-RADS category 4X: Recommend diagnostic chest CT with and without contrast, PET/CT may be considered if there is a greater than 8 mm solid component, tissue sampling, and/or referral for further clinical evaluation. Electronically Signed: Marce Burt MD at 8:10 EDT Reading Location ID and State: [facility] / [place] Tel , Service support , N.B. : Jose Parmar MD, confirmed on 12/07/2023 15:54:36 (ET) that the healthcare facility has received the radiology report. Signed ADDENDUM by Dr. Marce Burt MD on 12/07/23 at 1544 [id number] HISTORY: Elevated D dimer. TECHNIQUE: CT angiogram of the chest was performed after the intravenous administration of 100 mL Isovue-370. Post-processing of the angiographic images was performed with multiplanar reformation and 3D reconstruction. Individualized dose optimization techniques were used for this CT. 1079 images. COMPARISON: XR same day. FINDINGS: CENTRAL AIRWAYS: Patent. LUNGS: Mild bilateral bronchial wall thickening. 6 mm noncalcified nodule in the left lower lobe adjacent to the diaphragm. PLEURA: No pneumothorax or significant pleural effusion. HEART/PERICARDIUM: Heart within normal limits in size with coronary artery disease. Trace pericardial fluid. PULMONARY ARTERIES: No filling defect. AORTA/VESSELS: No thoracic aortic aneurysm or dissection flap. Mild atherosclerosis. MEDIASTINUM/EDGAR: 2 x 3.2 cm heterogeneous and lobulated right paratracheal mass, obscured from streak artifact from the adjacent superior vena cava. Mild mass effect on the superior vena cava and right upper lobe pulmonary vessels. OSSEOUS STRUCTURES: Degenerative change. Chronic mild T3 and T9 compression fractures. UPPER ABDOMEN: Borderline dilated small bowel in the biological sciences professor image. ADDENDUM by Dr. Marce Burt MD on 12/16/23 at 0810 IMPRESSION: undefined ADDENDUM by Dr. Marce Burt MD on 12/07/[address]/CTA Chest W/WO Contrast IMPRESSION: 3 cm right paratracheal mass, concerning for malignancy or metastatic lymphadenopathy. 6 mm left lower lobe pulmonary nodule; recommend follow-up Mild bronchitis. No evidence of acute pulmonary embolism. PET 01/21/2024: INDICATIONS: An 83-year-old female with history of mediastinal mass formation presenting for initial evaluation. COMPARISON EXAMINATION: CTA of the chest report dated 12/07/23 INDEX LESION SIZE SUV INTERPRETATION Right inguinal region 9.7-mm 4.2 May necessitate histopathologic investigation Right precarinal mediastinum 2.3 Quantitative criteria for viable neoplasm are not fulfilled TECHNIQUE: Following the intravenous administration of 14.5 mCi of F-18 deoxyglucose via the right hand, multiplanar image acquisitions of the neck, chest, abdomen and pelvis to level of mid thigh, obtained at one hour post radiopharmaceutical administration contemporaneously interpreted with the current CT of the neck, chest, abdomen and pelvis, to level of mid thigh, dated 01/21/24 via coregistration and CTA of the chest report dated 12/07/23 reveals: BLOOD GLUCOSE LEVEL:?? 85 mg/dl?HEIGHT:?66 inches?WEIGHT: 155 lbs. FINDINGS: HEAD/NECK: There is no evidence of abnormal increased glucose metabolism in the pharyngeal mucosal space, parapharyngeal space, bilateral-lateral and anterior neck, hypopharynx and distribution of the laryngeal structures. The visualized portion of the cerebral cortical-subcortical structures demonstrate symmetric and preserved glucose metabolism. Prominent tracer concentration is noted in the anterior aspect of the oral cavity in proximity to dental hardware placement most consistent with a component of metallic reconstruction artifact. CHEST: Enhanced tracer concentration is defined in the right upper paratracheal lymph node distribution generating a calculated maximal standard uptake value of 2.3. Pertinent chest CT findings are as follows. There is atherosclerotic calcification defined in the thoracic aorta without evidence of dilatation-aneurysm formation. Coronary arterial calcification is observed. Mediastinal and bilateral axillary soft tissue densities are non-glucose avid. There are no parenchymal densities-nodules defined in the right and left hemithorax with quantitatively significant increased FDG uptake. ABDOMEN/PELVIS: Facilitated uptake is noted in the right inguinal region in a single nodular presentation. The calculated maximal standard uptake value is 4.2. The maximal axial diameter of the corresponding soft tissue density is 9.7-mm. Normal physiologic distribution of the radiopharmaceutical is apparent in the hepatic (3.9) and splenic parenchyma, left renal unit, bladder and visualized intestinal tract. Pertinent abdomen and pelvis CT findings are as follows. 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 Colonic diverticula are defined without evidence of diverticulitis. Bilateral adnexal cyst formation is demonstrated. Cholelithiasis is demonstrated. There is atherosclerotic calcification defined in the abdominal aorta without evidence of dilatation-aneurysm formation. Pelvic arterial calcification is observed. SKELETAL: Degenerative changes are noted in the cervical, thoracic and lumbar spine without evidence of increased radiopharmaceutical concentration. PET/PET/CT Tumor Base -Thigh Init IMPRESSION: 1. The increase in radiopharmaceutical concentration defined in the right inguinal region may necessitate histopathologic analysis secondary to the quantitative degree of uptake. 2. Facilitated FDG concentration noted in the precarinal mediastinum to the right of the midline does not fulfill quantitative criteria for malignant transformation. (Alirio et al, Journal of Clinical Oncology 16:2142, 1998). Bronchoscopy with EBUS. Cytology: OPERATION: EBUS with TBNA PRE-OP DIAGNOSIS: Endobronchial ultrasound TISSUE SUBMITTED: A-F- 4R EBUS DIAGNOSIS CYTOLOGY A. EBUS, TBNA, site 4R #1 (smears): - Category: Atypical. - Scant atypical cells. B. EBUS, TBNA, site 4R #2 (smears): - Category: Suspicious for malignancy. - Atypical cells, suspicious for non-small cell carcinoma. See note. NOTE: The smears show tissue fragments of epithelial cells with large, moderately pleomorphic nuclei with prominent single round nucleoi and vacuolated cytoplasm. The nuclei are crowded and overlapped. These epithelial cells lack cilia. The features are suspicious for non-small cell carcinoma. Clinical and radiographic correlation is recommended. C. EBUS, TBNA, site 4R #3 (smears): - Category: Benign - Rare respiratory epithelial cells and lymphocytes. D. EBUS, TBNA, site 4R #4 (smears): - Category: Benign - Rare respiratory epithelial cells and lymphocytes. E. EBUS, TBNA, site 4R #5 (smears): - Category: Benign - Rare respiratory epithelial cells and lymphocytes. F. EBUS, TBNA, site 4R fluid (cytospin and cellblock): - Category: Benign - Rare respiratory epithelial cells and lymphocytes COMMENT The specimen is evaluated at the time of biopsy by Dr. Villanueva. Immediate Evaluation = Rapid onsite evaluation: A: Negative for malignant cells. A few lymphocytes are noted. Respiratory epithelial cells are noted B: Negative for malignant cells. Predominantly respiratory epithelial cells noted. C: Negative for malignant cells. Predominantly respiratory epithelial cells noted. D: Bloody specimen. Negative for malignant cells. Rare epithelial cells. E: Negative for malignant cells. Lymphocytes are noted. Rare respiratory epithelial cells. CONSULTATION REPORT FROM [facility]: INTERPRETATION: The specimen is sent to [facility] for expert opinion, reviewed by Dr. Hernandez and the above diagnosis is rendered. The complete report is viewable in the patient's EMR As per EMR, the patient has history of right kidney cancer, s/p nephrectomy. Clinical correlation and appropriate follow up are necessary. She feels well in general. Moved [facility] to [facility] to be closer to her brother and [id number]. However she lives independently and is capable of ADLs and all IADLs. Cough is resolved. Has some mild chest pain. PAST MEDICAL HISTORY Diagnosis Date Macular degeneration PAST SURGICAL HISTORY Procedure Laterality Date REMV KIDNEY/URETER,SAME INCIS Right VAGINAL HYSTERECTOMY PARoxetine (PAXIL) 40 mg tablet Take 40 mg by mouth once daily. vit A/vit C/vit E/zinc/copper (ICAPS AREDS ORAL) Take 1 capsule by mouth two times a day. tiZANidine (ZANAFLEX) 4 mg tablet Take 1 tablet by mouth at bedtime as needed (muscle spasms). celecoxib (CELEBREX) 100 mg capsule TAKE 1 PILL BY MOUTH WITH FOOD UP TO EVERY 12 HOURS NEEDED FOR PAIN (Patient not taking: Reported on 12/07/2023) metoprolol succinate ER (TOPROL XL) 25 mg 24 hr tablet Take 25 mg by mouth. montelukast (SINGULAIR) 10 mg tablet Take 10 mg by mouth. pravastatin (PRAVACHOL) 40 mg tablet Take 40 mg by mouth. ALLERGIES Allergen Reactions Cat Dander Hives Latex Rash Social History Tobacco Use Smoking status: Never Smokeless tobacco: Never Vaping Use Vaping status: Never Used Substance Use Topics Alcohol use: Never Drug use: Never FAMILY HISTORY Problem Relation Age of Onset Macular Degen Mother Hypertension Mother Heart Attack Father other (Hypercholesterolemia) Father other (Heart MurMur) Sister other (Hypercholesterol) Sister Hypertension Sister Macular Degen Brother other (Hypercholesterol) Brother REVIEW OF SYSTEMS: Constitutional: No episodes of fever and night sweats. Not significantly fatigued. Normal appetite. Neuro: No HINTON, vertigo, dizziness and imbalance. No symptoms of neuropathy. HEENT: No recent change in voice, vision or hearing. Resp: No cough, wheeze and hemoptysis. No shortness of breath at rest. No VARGAS. CVS: No exertional chest pain, PND, orthopnea and LE edema. GI: No altered taste or symptoms of stomatitis. No dysphagia and odynophagia. No reflux, n/v, change in bowel habits or abdominal pain. : No dysuria or gross hematuria. No symptoms of bladder outlet obstruction. Endo: No hot flashes. No polyuria and polydipsia. No heat and cold intolerance. Musculoskeletal: No bone, back, joint and muscular pain. Derm: No current rash. No history of jaundice or diffuse pruritis. Heme: No unusual bleeding and unexplained bruising. Psych: Normal mood. PHYSICAL EXAM: Vitals: There were no vitals taken for this visit. Well-appearing and in no acute distress. EYES: Sclerae are anicteric bilaterally. LYMPHATIC: There is no palpable adenopathy. RESPIRATORY: Inspiratory breath sounds are of normal intensity in all osorio. No rales, wheezes or rhonchi. CARDIOVASCULAR: Rhythm is regular. ABDOMEN: The abdomen is nondistended. No splenomegaly or hepatomegaly. No tenderness. Extremities: No swelling or edema. ASSESSMENT/PLAN: (J98.59) Mediastinal mass (primary encounter diagnosis) (R07.89) Other chest pain Assessment: -The patient is an 84-year-old female who has a remote history of renal cell carcinoma, histologic subtype unknown status post right nephrectomy in 2009. -More recently was incidentally found to have a enlarged right paratracheal lymph node. She underwent EBUS biopsy with results as outlined above. Suspicious for non-small cell carcinoma but not conclusive on outside review at [facility]. -I discussed need for repeat bronchoscopy and biopsy with the patient and her brother. Outlined plan below. Plan: -Import CTA chest and PET scan images. -Repeat CT chest with IV contrast. -Will refer to pulmonary medicine. I spent a total of 60 minutes on the date of the service which included preparing to see the patient (CT and PET scan images reviewed in the [facility] system), [id number] patient care, completing clinical documentation, obtaining and/or reviewing separately obtained history, performing a medically appropriate examination, counseling and educating the patient/family/caregiver, ordering medications, tests, or procedures, communicating with other HCPs (not separately reported), and communicating results to the patient/family/caregiver. Spencer Velarde DO documented in this encounter [facility] 02-06-2024 Telephone encounter Note Scheduled with Kailee. [facility] Work Phone: 02-06-2024 Miscellaneous Notes Scheduled with Kailee. PSS- please contact patient's brother to schedule a new patient visit with Dr. Velarde on 02/14/2024 @ 8:00. Judit Jovel LPN Patients brother Kailee called back requesting to transfer patient to F Can be reached at (Kailee Yong) [phone] Please advise Patient is scheduled for a right groin biopsy 02/05/2024 and a NM bone scan 02/25/2024. Patient had PET scan and CTA chest already completed at [facility] as well as a bronchoscopy and has seen Dr. Montero twice as well. Records printed for Dr. Velarde to review. Images requested. Judit Jovel LPN Please review and advise. Jaziel, I am reaching out from the regional cancer answer line. This patient's brother called in this morning in regards to establishing care for Deangelo with oncology. Deangelo has been seen outside the [facility] and imaging records (PET/US) are uploaded into her chart. Kailee states he would like for Deangelo to be seen within [facility]. She has a biopsy and NM whole body bone scheduled with [facility], but Kailee explained these things are taking far too long and pushing out into the next 2 months. He is requesting that patient is scheduled with Dr. Velarde at [facility]. Can someone please assist? Kailee can be reached at: [facility] [phone] [facility] [phone] documented in this encounter [facility] 02-06-2024 Telephone encounter Note PSS- please contact patient's brother to schedule a new patient visit with Dr. Velarde on 02/14/2024 @ 8:00. Judit Jovel LPN [facility] 02-05-2024 Telephone encounter Note Patients brother Kailee called back requesting to transfer patient to [facility] Can be reached at (Kailee Beach) [phone] Please advise [facility] Work Phone: 02-03-2024 Telephone encounter Note Patient is scheduled for a right groin biopsy 02/05/2024 and a NM bone scan 02/25/2024. Patient had PET scan and CTA chest already completed at [facility] as well as a bronchoscopy and has seen Dr. Montero twice as well. Records printed for Dr. Velarde to review. Images requested. Judit Jovel LPN [facility] 02-03-2024 Telephone encounter Note Please review and advise. [facility] 02-03-2024 Telephone encounter Note Jaziel, I am reaching out from the regional cancer answer line. This patient's brother called in this morning in regards to establishing care for Deangelo with oncology. Deangelo has been seen outside the [facility] and imaging records (PET/US) are uploaded into her chart. Kailee states he would like for Deangelo to be seen within [facility]. She has a biopsy and NM whole body bone scheduled with [facility], but Kailee explained these things are taking far too long and pushing out into the next 2 months. He is requesting that patient is scheduled with Dr. Velarde at [facility]. Can someone please assist? Kailee can be reached at: [facility] [phone] [facility] [phone] [facility] 01-07-2024 Note [facility] Medical Records Department [address] [place] [address] History Physical Exam 01/07/24723 MR#: [id number] Acct: [id number] Name: DEANGELO BEACH Rep #: [id number] : 1940 83 From: Johnnie Escobar DO PCP: Dr. Ramiro Santana MD Status:[facility] Location: [address] - General General Date of Service: 01/10/24 HPI Narrative The patient is an 83-year-old female who was initially referred to the pulmonary medicine office on December 26 for the evaluation of a paratracheal mass. The patient has a medical history significant for right kidney cancer status post nephrectomy in 2009 in [place]. She was recently evaluated in the emergency department in November 2023 secondary to a history of nonproductive cough. A CTA chest was completed during that evaluation and demonstrated a 2 x 3 cm right paratracheal mass adjacent to the superior vena cava. The patient was subsequently referred to Dr. Montero of oncology, who evaluated the patient on December 11. He then referred the patient to our office to be considered for possible EBUS. [facility] Medical History (Updated 12/31/23 @ 13:48 by Yuliya Walden) Wears glasses Post-menopausal Lymph node enlargement Anxiety Bladder disease Anemia High cholesterol Back pain Difficulty swallowing History of GI bleed History of ulceration History of IBS Non-smoker Shortness of breath on exertion Asthma History of pain when walking History of edema Chronic cough Hyperlipemia Hypertension Cancer of kidney Home Medications ???Medication ???Instructions ???Recorded ???Last Taken ???Type metoprolol succinate 25 mg 25 mg PO DAILY 12/27/22 Unknown History tablet,extended release 24 hr montelukast 10 mg tablet 10 mg PO QHS 12/27/22 Unknown History pravastatin 40 mg tablet 40 mg PO QHS 12/27/22 Unknown History diclofenac sodium 1 % topical gel 2 ea topical 4X/DAY PRN pain 07/31/23 Unknown History (scale score 4-6) hydrocortisone 2.5 % topical cream 1 applic topical BID PRN rash 7 12/07/23 Unknown Rx days #30 grams Allergy/AdvReac Type Severity Reaction Status Date / Time Latex, Natural Rubber Allergy Intermediate Rash Verified 12/26/23 10:32 tizanidine Allergy Rash Verified 12/26/23 10:34 Family History Other No pertinent family history Surgical History (Updated 12/31/23 @ 13:48 by Yuliya Walden) Hx of left cataract extraction Hx of right cataract extraction Hx of colonoscopy H/O: hysterectomy H/O right nephrectomy Social History Smoking Status: Never smoker alcohol intake: never Physical Exam Const alert and no apparent distress General Appearance: cooperative HEENT normocephalic and head/scalp atraumatic Eyes PERRL and EOMs intact bilaterally Neck supple General: trachea midline Resp normal respiratory effort and normal air movement Cardio regular rate and regular rhythm GI normal to inspection, nondistended, normoactive bowel sounds Extremity no clubbing, cyanosis or edema Skin General Skin Exam: no breakdown Neuro CN's II-XII intact bilaterally and no focal motor deficits Psych cooperative and affect normal Assessment Plan Assessment/Plan (1) Lung mass: PLAN: The patient presented to the pulmonary medicine office for the evaluation of a distal right paratracheal lung mass noted on recent CTA chest, measuring approximately 2 x 3 cm in size. The lesion itself is adjacent to the superior vena cava. Prior to proceeding with referral to thoracic surgery, I did discuss the feasibility of proceeding with EBUS in order to facilitate sampling of the aforementioned lesion. Risks and benefits of the proposed procedure were discussed with the patient. She is agreeable to proceed. If the lesion is unable to be accessed bronchoscopically, she will require outpatient referral to thoracic surgery. 01/07/24 0726 Cosigner Signature (if applicable): CC: Dr. Johnnie Escobar DO; Dr. Ramiro Santana MD Signed ADDENDUM by Dr. Johnnie Escobar DO on 01/10/24 at 1118 Addendum I have examined the patient and the H P has been reviewed. There are no clinical changes since date of exam. 01/10/24 1118 Cosigner Signature (if applicable): cc: Dr. Johnnie Escobar DO; Dr. Ramiro Santana MD * Signed [facility] 12-19-2023 Telephone encounter Note Message left for patient to call in if interested in date that was offered to her pending the max allowable new patients wasn't met yet. February 07 as of today has no new patient's scheduled. Advised once 2 scheduled can no longer offer her this date. Alexa Mcdaniels LPN [facility] 12-19-2023 Miscellaneous Notes Message left for patient to call in if interested in date that was offered to her pending the max allowable new patients wasn't met yet. February 07 as of today has no new patient's scheduled. Advised once 2 scheduled can no longer offer her this date. Alexa Mcdaniels LPN Patient calling for sooner appointment to establish with PCP or advisement on how to obtain appropriate plan of care. Patient reports she was seen recently in [facility] where a mass was discovered. States she spoke with an outpatient provider but is unable to reach him. She was advised to follow up soon with a PCP. Please contact patient to advise. documented in this encounter [facility] 12-18-2023 Telephone encounter Note Patient calling for sooner appointment to establish with PCP or advisement on how to obtain appropriate plan of care. Patient reports she was seen recently in [facility] where a mass was discovered. States she spoke with an outpatient provider but is unable to reach him. She was advised to follow up soon with a PCP. Please contact patient to advise. [facility] 12-10-2023 History of Present illness Narrative Scan on 12/09/2023 6:34 PM by Provider, KRYSTA Lucas: Ultrasound Patient is establishing with Dr. Lambert in 02/2024. Mary Jo Bond MA documented in this encounter [facility] 12-07-2023 History of Present illness Narrative Images from the original note were not included. Subjective Cough Associated symptoms include sore throat, shortness of breath and wheezing. Pertinent negatives include no chest pain and no myalgias. Rash Associated symptoms include coughing, shortness of breath and a sore throat. Pertinent negatives include no congestion, diarrhea, fever or vomiting. Deangelo Beach is a 83 year old female who presents with cough, shortness of breath, wheezing, sore throat, and body aches that started 2-3 weeks ago. Patient also reports that she has swelling in her left leg. It is difficult to get a good history of patient's symptoms as she has difficulty with focusing on one symptom at a time. Patient states she has a history of asthma and has an inhaler but is unable to report if she has been using her inhaler. She states she has been taking over the counter cough medicine with no relief. She reports that her cough is productive with no color to her sputum. She states that she has a rash on her neck that started two weeks ago. Patient has a bottle of tizanadine that she has brought with her and states she was advised to stop taking the medication as it may be contributing to her rash. She reports using over the counter cream for the rash with no relief. She states she is tired and feels unwell. She denies fever, nausea, vomiting, and diarrhea. Review of Systems Constitutional: Positive for malaise/fatigue. Negative for fever. HENT: Positive for sore throat. Negative for congestion and sinus pain. Respiratory: Positive for cough, sputum production, shortness of breath and wheezing. Cardiovascular: Positive for leg swelling. Negative for chest pain. Gastrointestinal: Negative for abdominal pain, diarrhea, nausea and vomiting. Genitourinary: Positive for frequency and urgency. Stated Musculoskeletal: Negative for myalgias and neck pain. Skin: Positive for rash. Objective BP 128/70 Pulse 112 Temp 36.7 C (98 F) Resp 22 Wt 73.8 kg (162 lb 11.2 oz) SpO2 95% PAST MEDICAL HISTORY No date: Macular degeneration PAST SURGICAL HISTORY No date: REMV KIDNEY/URETER,SAME INCIS; Right No date: VAGINAL HYSTERECTOMY ALLERGIES Cat Dander and Latex MEDICATIONS PARoxetine (PAXIL) 40 mg tablet Take 40 mg by mouth once daily. vit A/vit C/vit E/zinc/copper (ICAPS AREDS ORAL) Take 1 capsule by mouth two times a day. tiZANidine (ZANAFLEX) 4 mg tablet Take 1 tablet by mouth at bedtime as needed (muscle spasms). metoprolol succinate ER (TOPROL XL) 25 mg 24 hr tablet Take 25 mg by mouth. montelukast (SINGULAIR) 10 mg tablet Take 10 mg by mouth. pravastatin (PRAVACHOL) 40 mg tablet Take 40 mg by mouth. celecoxib (CELEBREX) 100 mg capsule TAKE 1 PILL BY MOUTH WITH FOOD UP TO EVERY 12 HOURS NEEDED FOR PAIN (Patient not taking: Reported on 12/07/2023) FAMILY HISTORY Problem Relation Age of Onset Macular Degen Mother Hypertension Mother Heart Attack Father other (Hypercholesterolemia) Father other (Heart MurMur) Sister other (Hypercholesterol) Sister Hypertension Sister Macular Degen Brother other (Hypercholesterol) Brother Social History Tobacco Use Smoking status: Never Smokeless tobacco: Never Vaping Use Vaping status: Never Used Substance Use Topics Alcohol use: Never Drug use: Never Physical Exam Vitals and nursing note reviewed. Constitutional: Appearance: Normal appearance. HENT: Head: Normocephalic. Mouth/Throat: Mouth: Mucous membranes are moist. Cardiovascular: Rate and Rhythm: Regular rhythm. Tachycardia present. Pulses: Normal pulses. Heart sounds: Normal heart sounds. Pulmonary: Breath sounds: Wheezing present. Comments: Inspiratory and expiratory wheezing noted bilaterally with diminished lungs sounds in the bases bilaterally. Abdominal: Palpations: Abdomen is soft. Tenderness: There is no abdominal tenderness. Musculoskeletal: General: Swelling present. No tenderness. Cervical back: Normal range of motion and neck supple. No tenderness. Left lower leg: Edema present. Comments: LLE edema 1-2 + pitting Skin: General: Skin is warm and dry. Findings: Erythema and rash present. Rash is macular. Comments: Large macular erythematous rash with the appearance of glistening in some areas resembling a rash consistent with yeast. White papules scattered throughout rash. Neurological: General: No focal deficit present. Mental Status: She is alert and oriented to person, place, and time. ASSESSMENT/PLAN: 1. SOB (shortness of breath) - ICD9: 786.05, ICD10: R06.02 (primary diagnosis) 2. Rash - ICD9: 782.1, ICD10: R21 3. Ankle swelling, unspecified laterality - ICD9: 719.07, ICD10: M25.473 Patient advised to go to ER for further evaluation and treatment. No lab or xray available at [facility] today. Deena Otoole MAINTENANCE SUPERVISOR MECHANICAL Student TEACHING PROVIDER (Physician/PA/MANAGER OF DRILLING) NOTE OF PERSONAL INVOLVEMENT IN CARE: I have personally seen and examined the patient and performed the medical decision-making components. I have reviewed the Advanced Practice Registered Nurse (MANAGER OF DRILLING) Student's documentation and verified the findings in the note as written. Any additions or changes are noted in bold/italics. Signature: Ligia Naylor Date: 12/07/2023 Time: 1:03 PM Ligia Naylor APRN.STACK CLERK documented in this encounter [facility] 12-07-2023 Instructions Ligia Naylor APRN.CNP - 12/07/2023 12:22 PM EDT ASSESSMENT/PLAN: 1. SOB (shortness of breath) - ICD9: 786.05, ICD10: R06.02 (primary diagnosis) 2. Rash - ICD9: 782.1, ICD10: R21 3. Ankle swelling, unspecified laterality - ICD9: 719.07, ICD10: M25.473 Patient advised to go to ER for further evaluation and treatment. No lab or xray available at [facility] today. Ligia Naylor APRN.DOUGLAS documented in this encounter [facility] 10-24-2023 History of Present illness Narrative Radiology Service Progress Note PATIENT NAME: Deangelo Beach DATE OF SERVICE: October 24, 2023 TIME: 3:31 PM PATIENT IDENTITY VERIFICATION COMPLETED USING TWO (2) IDENTIFIERS: Name and Date of confirmed by patient verbally. FALL SCREENING: Has the patient had 2 falls in the last year or 1 fall with injury or currently using an Ambulatory Assistive Device (Walker, Cane, Wheelchair, Crutches, etc.)? No PATIENT GENDER DATA: Female. status: : No status: NO. PATIENT RELEVANT IMPLANT DATA REVIEWED: Yes PATIENT PRESENTS WITH AN IMPLANTABLE OR ATTACHED MORNING CAREGIVER: No RADIOLOGY DEPARTMENT: General X-ray: Exam(s) Completed: Spine X-Ray(s): Lumbar AP / LAT / L5-S1 / FLEX-EXT PERIPHERAL IV DATA: Not applicable SIGNED BY: RT Huy(R) October 24, 2023 3:31 PM documented in this encounter [facility] 10-24-2023 History of Present illness Narrative Review of Systems Constitutional: Positive for activity change. Musculoskeletal: Positive for back pain, gait problem, neck pain and neck stiffness. Neurological: Positive for weakness. Psychiatric/Behavioral: Positive for sleep disturbance. The patient is nervous/anxious. Images from the original note were not included. [facility] General Today's Date: 10/24/2023 Name: Deangelo Beach : 1940 Purpose: New Patient Evaluation Chief complaint: low back pain Referring Clinician: Self Pertinent Past Medical History: Hyperlipidemia, Hypertension, Asthma, KAREY, Stage 3 Renal Cancer Pertinent Past Surgeries: Right Nephrectomy (2009), Hysterectomy (remote) History of Present Illness (HPI): 10/15/2023 - Initial HPI (Obtained by Deng Foster M.D.). DURATION AND ONSET: The pain complaint has been present for approximately 20 years. The pain had a gradual onset. The mechanism of injury is known and is as follows: she tripped over a conveyer belt, was off work for 6 weeks. The injury was BWC, but the case is settled. Since that time, she has had chronic low back pain, particularly on the left side. Seen in ED on 07/2023 with acute onset right-sided axial low back pain. No trauma reported. Given Medrol Dose pack. RED FLAG SYMPTOMS: denies red flags. PAIN DESCRIPTION: Timing: Constant Character: Aching Primary Location: axial low back Radiation: left axial low back Exacerbating factors: Walking, sweeping Relieving factors: Avoiding Offending Activities Interferes with: physical activity Current Pain Medications: Neuropathics: NSAIDS: Advil OTC - no relief Muscle Relaxants: Topicals: Voltaren gel - no relief Other Prescription or OTC Pain Medications: Opioids (when applicable): Anti-depressants or Mood-Stabilizers: Paxil Anti-Coagulants: None Therapies Attended (Current or Most Recent): No Current Therapies - Chiropractor, last attended 20 years ago. Has not attended PT. 10/24/2023 [facility] Questionnaire GREENLIGHT Completed Date 10/24/2023 Questionnaire Opiod Risk Tool Completed Date 10/24/2023 Comments Low Risk 0 Greenlight Questionnaire GREENLIGHT Completed Date 10/24/2023 Opioid Risk Tool Opiod Risk Tool Date Completed 10/24/2023 Comments Low Risk 0 KAREY-7 Anxiety Score 13 Completed Date 10/24/2023 PHQ9P Score 12 Completed Date 10/24/2023 (All drug screens are appropriate unless indicated otherwise) Treatment History: PAIN PROCEDURES: DATE PROCEDURE IMPROVEMENT To date, no interventional pain management procedures performed at this practice. MEDICATIONS Taken TO DATE (for the chief complaint(s)): Neuropathics: None NSAIDS: None Muscle Relaxants: Parafon forte Topicals: Voltaren (Gel) Other Prescription or OTC Pain Medications: None Opioids: None Compliance: PDMP website checked and validated on 10/24/2023 by Deng Foster MD All prescriptions have been APPROPRIATELY filled. No suspicious activity was identified. [place] 5/325, #12 (07/31/2023) 10/24/2023 [facility] COM[facility] Questionnaire GREENLIGHT Completed Date 10/24/2023 Questionnaire Opiod Risk Tool Completed Date 10/24/2023 Comments Low Risk 0 (All drug screens are appropriate unless indicated otherwise) Risk Assessment: KAREY-7: 10/24/2023 KAREY - 7 SCORES Score 12 (0-4) minimal anxiety, (5-9) mild anxiety, (10-14) moderate anxiety, (15-21) severe anxiety PHQ-9: 10/24/2023 PHQ-9 Score 13 (0-4) minimal depression, (5-9) mild depression, (10-14) moderate depression, (15-19) moderately severe depression, (20-27) severe depression Opioid Risk Tool: Family History of Substance Abuse: 0 - No Personal History of Substance Abuse: 0 - No Age between 16-45: 0 - No History of Pre-Adolescence Sexual Abuse: 0 - No Psychological Disease: 0 - No Risk Total: 0 Total Score Risk Category: Low Risk 0-3 (0-3, low risk or no risk; 4-7, moderate risk, 8+, high risk) Diagnostic Studies: Relevant Imaging: MRI Spine Report No resulted procedures found. CT Abd/Pelvis 2019 (compared to 2017): No focal consolidation of the lung bases. Mild degenerative changes of the spine are noted. \There is mild motion artifact present diffusely throughout the abdomen. The unenhanced liver, spleen, pancreas and bilateral adrenal glands are unremarkable. Cholelithiasis is noted. There are likely small left parapelvic renal cysts. No evidence of hydronephrosis is noted at the left kidney. No obstructing radiopaque calculus is identified. The right kidney is absent. There is atherosclerotic calcification of the aorta. No abdominal/pelvic lymphadenopathy is present. No bowel obstruction. There is a mild fluid-filled appearance of the small bowel and colon without evidence of dilated loops. The appendix is unremarkable. There is diverticulosis of the sigmoid colon. The CT appearance of the bladder is relatively collapsed but otherwise unremarkable. The patient is status post hysterectomy. There is a stable 1.7 cm left adnexal cystic structure on series 2, image 83. No pelvic free fluid is present Electrodiagnostic Study (EMG): None Recent Labs: No results found for: CREAT No results found for: EGFR No results found for: PCGLUCOSE CMP 09/2022: Cr 0.89, GFR 65 Current Medications, Past Medical History, Past Surgical History, Family History, Social History and Review of Systems: On today's date, noted above, I have confirmed and edited as necessary, the PFSH and ROS obtained by others. Physical Exam: 10/24/23 1439 Pulse: 86 Resp: 18 SpO2: 97% Neuro-Lower: Neural Tension Signs: Negative slump in Bilateral lower limbs Sensation: intact to light touch in the L2-S2 Bilateral lower limb dermatomes Muscle Tone: Normal and symmetric throughout without clonus Strength: Iliopsoas (L2): 5 Left, 5 Right Quadriceps (L3) 5 Left, 5 Right Anterior Tibialis (L4): 5 Left, 5 Right Extensor Hallucis Longus (L5): 5 Left, 5 Right Gastrocnemius (S1): 5 Left, 5 Right Reflexes: Decreased 1+ and symmetric Patellar, Achilles Musculoskeletal-Lower: Inspection: Symmetric without atrophy Palpation: Lumbar Paraspinal Tenderness: Concordant on Left side(s) Paraspinal Spasms: Moderate PSIS Tenderness: None on Bilateral side(s) Greater Trochanter Tenderness: None on Bilateral side(s) Spine Range of Motion: Flexion: Decreased 50% Without end range pain Extension: Decreased 75% With end range pain Combination extension and rotation pain: Concordant Hip Range of Motion: Right Hip: Internal Rotation: Normal; Pain at end range: None External Rotation: Normal; Pain at end range: None Left Hip: Internal Rotation: Normal; Pain at end range: None External Rotation: Normal; Pain at end range: None Sacroiliac Maneuvers: Deferred IMPRESSION: 83 year old female presents with complaint(s) of left-sided axial low back pain, most likely facet-mediated. She has one kidney. Diagnoses: (M47.816) Lumbar spondylosis (primary encounter diagnosis) (M79.18) Myofascial pain PLAN: Deangelo Beach would benefit from the following to reach personal goals for decreasing pain, improving function and work participation, and/or improving quality of life: Medications: Requested Prescriptions No prescriptions requested or ordered in this encounter Celebrex 100mg BID PRN - start trial Zanaflex 4mg qHS PRN - start trial Interventional Procedures: None Studies: X-ray: Lumbar Spine Functional Buddhist: Physical Therapy Consultation (Land-Based) Referrals: No additional considerations at present Follow-up: 2 months Depending on response to the above plan, consider: MBB/RFA, Lumbar MRI, Epidural Compliance and Clinic Policies Reviewed and/or Discussed Today: None Attribution: In addition to reviewing the information noted above, some elements copied from my most recent clinical note(s), including the physical exam (completed in entirety today), and the impression and plan sections, have been updated where appropriate. All reflect current medical decision making from today's date. Deng Foster MD Pain Management [facility] documented in this encounter [facility] 07-31-2023 Discharge summary Note Date/Time July 31, 2023 10:34pm [facility] Medical Records Department [address] [place] [address] Emergency Department Summary 07/31/23 MR#: [id number] Acct: [id number] Name: DEANGELO BEACH Rep #:[id number] : 1940 83 From: Gary Joyner DO PCP: SUBHASH NAVAS Status:REG ER Location: ED HPI HPI - GI History of Present Illness Chief Complaint: Back Narrative Narrative: 83-year-old female presenting with right-sided back pain. She states 3 present for 6 days. She says in the past sensitive musculoskeletal but also is concerned because quite well. She states that she went to urgent care and she was given some cream to put on topically but this did not help. She states thatTylenol and ibuprofen do not help. Patient states she only has 1 kidney due to nephrectomy on the right due to renal cell carcinoma. Patient states that she has not had nausea. She denies urinary or vaginal complaints. She denies constipation or diarrhea. No direct trauma to the back. No saddle anesthesia, urinary retention. [facility] Medical History Cancer of kidney Hyperlipemia Hypertension Home Medications metoprolol succinate 25 mg tablet,extended release 24 hr 25 mg PO DAILY 12/27/22[History Last Taken Unknown] montelukast 10 mg tablet 10 mg PO QHS 12/27/22 [History Last Taken Unknown] pravastatin 40 mg tablet 40 mg PO DAILY 12/27/22 [History Last Taken Unknown] diclofenac sodium 1 % topical gel 2 ea topical 4X/DAY 07/31/23 [History Last Taken Unknown] hydrocodone-acetaminophen 5-325mg 5mg-325mg 1 tab PO Q6H PRN pain 3 days #12 TABLETS 07/31/23 [Rx Last Taken Unknown] Allergy/AdvReac Type Severity Reaction Status Date / Time Latex, Natural Rubber Allergy Intermediate Rash Verified 07/31/23 19:57 Surgical History H/O right nephrectomy H/O: hysterectomy Social History Smoking Status: Never smoker ROS ROS ED Constitutional Constitutional ED: Denies chills, fever(s) or sweats Eyes Eyes: Denies blurry vision or change in vision ENT ENT ED: Denies ear pain or sore throat Cardiovascular Cardiovascular: Denies chest pain, palpitations or racing heartbeat Respiratory/Chest Respiratory/Chest: Denies cough, dyspnea or sputum Gastrointestinal Gastrointestinal: Denies abdominal pain, constipation, diarrhea, nausea or vomiting Genitourinary Genitourinary ED: Denies dysuria, hematuria or urinary frequency Musculoskeletal Musculoskeletal: Reports back pain; Denies arthralgias, myalgias or neck pain Integumentary Denies abscess, Abrasions or rash Neurologic Neurologic: Denies headache(s), paresthesias or weakness Psychiatric Psychiatric: Denies anxiety, depression, suicidal ideation or suicidal thoughts Endocrine Endocrinology: Denies polydipsia or polyuria EXAM Physical Exam Const Vital Signs: 07/31/23 19:55 07/31/23 21:40 Temperature 96.9 F L 97.7 F L Temperature Source Temporal Oral Pulse Rate 105 H 87 Respiratory Rate 20 H 18 Blood Pressure 136/88 H 130/86 H Blood Pressure Mean 104 100 Pulse Ox 96 96 Oxygen Delivery Method Room Air Room Air Positive well nourished General Appearance ED: NAD HEENT Reports moist mucous membranes normocephalic Eyes PERRL and EOMs intact bilaterally Resp normal respiratory effort Auscultation: Negative for rales, rhonchi or wheezes Cardio regular rate and regular rhythm GI non-distended Back/Spine Back/Spine Narrative: Right lower thoracic and upper lumbar paraspinal musculature tenderness. No obvious CVA tenderness. No rashes, ecchymosis. Neuro CN's II-XII intact bilaterally Sensorium / Orientation: alert Psych mental status grossly normal Skin no wounds MDM MDM MDM Narrative Medical decision making narrative: Patient presenting right-sided back pain. She states she has not been getting much relief from the cream that was prescribed to her. Tylenol ibuprofen not helping. Denies any trauma. Differential includes kidney stone, UTI, pyelonephritis, constipation. Patient also has concerns has a history of renal cell cancer. Patient medicated with morphine, Zofran. She is given a liter of normal saline. CBC to assess white blood cell count, hemoglobin, platelets. BMP to assess renal function and electrolytes. Urinalysis to assess for UTI. CT of the abdomen pelvis without contrast will be obtained. CBC and BMP unremarkable. Urinalysis negative for infection. CT of the abdomen pelvis was negative as well although the patient does have some gallstones on exam. She isnot tender in her right upper quadrant. I will write for a prescription for [place] for home. She will be discharged to follow-up with her PCP. Return precautions discussed. Impression 1. Back pain Lab Data Labs: Laboratory Results - last 24 hr 07/31/23 07/31/23 21:40 22:40 WBC 6.4 RBC 4.94 Hgb 14.8 Hct 45.8 MCV 92.7 MCH 30.0 MCHC 32.3 RDW Std Deviation 43.3 RDW Coeff of Valerie 12.8 Plt Count 225 MPV 10.3 Immature Gran % (Auto) 0.200 Neut % (Auto) 59.2 Lymph % (Auto) 25.0 [place] % (Auto) 8.8 Eos % (Auto) 6.3 H Baso % (Auto) 0.5 Absolute Neuts (auto) 3.8 Absolute Lymphs (auto) 1.59 Nucleated RBC % 0 Sodium 140 Potassium 4.1 Chloride 107 Carbon Dioxide 29.0 Anion Gap 4 L BUN 17 Creatinine 0.95 Estim Creat Clear Calc 46.98 Est GFR (MDRD) Af Amer 72 Est GFR (MDRD) Non-Af 60 BUN/Creatinine Ratio 17.9 Glucose 99 Calcium 9.6 Urine Color Yellow Urine Clarity Clear Urine pH 5.0 Ur Specific [place]riton 1.020 Urine Protein Negative Urine Glucose (UA) Normal Urine Ketones Negative Urine Occult Blood 25 H Urine Nitrite Negative Urine Bilirubin Negative Urine Urobilinogen Normal Ur Leukocyte Esterase 25 H Urine RBC 0-5 SEEN Urine WBC 0-5 SEEN Ur Squamous Epith Cells 0-5 SEEN Calcium Oxalate Crystal 1+ Urine Bacteria 0 SEEN Urine Mucus 0 SEEN Radiography Diagnostic Testing: Clinical Impression(s) from Imaging Studies Abdomen/Pelvis CT 07/31/23 21:40 IMPRESSION: 1. Multiple parapelvic cysts left kidney. No no hydronephrosis. 2. Cholelithiasis. 3. Scattered diverticula without diverticulitis. 4. Bilateral simple appearing cysts each measuring 3.9 cm unchanged as previous exam. No follow-up imaging necessary. Electronically Signed: Krysta Solo MD at 23:26 EDT , Discharge Plan Triage Chief Complaint: Back ED Provider: Gary Joyner Dx/Rx/DC Orders Instructions: ED Back Spasm, No Trauma Prescriptions: New hydrocodone-acetaminophen 5-325 mg tablet 1 tab PO Q6H PRN (Reason: pain) 3 Days Qty: 12 0RF No Action metoprolol succinate 25 mg tablet extended release 24 hr 25 mg PO DAILY montelukast 10 mg tablet 10 mg PO QHS pravastatin 40 mg tablet 40 mg PO DAILY diclofenac sodium 1 % gel 2 ea topical 4X/DAY Primary Care Provider: SUBHASH NAVAS Referrals: SUBHASH NAVAS [Other] Disposition Disposition: Home, Self Care What to do if you have Problems For any increased pain, shortness of breath, bleeding, nausea or vomiting, chest pain, or any unexpected problems, contact your Primary Care Provider. Call [facility] ([phone]) or report to the closest Emergency Room. Call 911 if necessary. 07/31/23 1565 <Electronically signed by Gary Joyner DO> Cosigner Signature (if applicable): CC: SUBHASH NAVAS ~ Signed [facility] Work Phone: [phone] History of Present illness Narrative* Priscilla Marroquin PA - 07/30/2023 4:50 PM EDT This note was created using NoteWriter. Subjective Deangelo Beach is a 83 year old female. HPI 83-year-old female presents for low back pain. Patient states she has been having right low back pain for th past week. She states pain is worse with movement. She states that she fell several years ago and has had chronic right low back pain since then. Denies ever having surgery on lumbar spine. She states that pain flares up from time to time. She denies any injury over the past week, thinks she may have been twisting turning which caused a flareup. She denies any fall. She denies any numbness or tingling in the legs. No pain in the legs. No loss of bowel or bladder function. No fevers. No hematuria, dysuria. No abdominal pain. She states she was seen in the ER for this in the past and given oxycodone, but states that that did not help. She has also been on muscle relaxers in the past. She has never seen a spine doctor, but was referred to one. No past medical history on file. No past surgical history on file. ALLERGIES Latex MEDICATIONS Ciclopirox (LOPROX) 8 % solution Apply to affected area daily at bedtime. metoprolol succinate ER (TOPROL XL) 25 mg 24 hr tablet Take 25 mg by mouth. montelukast (SINGULAIR) 10 mg tablet Take 10 mg by mouth. PARoxetine (PAXIL) 40 mg tablet Take 40 mg by mouth. pravastatin (PRAVACHOL) 40 mg tablet Take 40 mg by mouth. diclofenac (VOLTAREN) 1 % topical gel Apply 2 g to affected area four times daily. methylPREDNISolone (MEDROL, TERE,) 4 mg Dose-Pack Follow dosing instructions, take with food. chlorzoxazone (PARAFON FORTE DSC) 500 mg tablet Take 500 mg by mouth. (Patient not taking: Reportedon 07/30/2023) benzonatate (TESSALON PERLES) 100 mg capsule Take 1 capsule by mouth three times daily as needed for cough. (Patient not taking: Reported on 07/30/2023) No family history on file. Social History Tobacco Use Smoking status: Never Smokeless tobacco: Never Vaping Use Vaping Use: Never used Substance Use Topics Alcohol use: Never Review of Systems Constitutional: Negative for chills and fever. HENT: Negative for congestion, ear pain and sore throat. Respiratory: Negative for cough and shortness of breath. Cardiovascular: Negative for chest pain. Gastrointestinal: Negative for diarrhea and vomiting. Musculoskeletal: Positive for back pain. Objective BP 122/82 Pulse 106 Temp 36.6 C (97.9 F) Resp 18 Wt 73.6 kg (162 lb 4.1 oz) SpO2 96% Physical Exam Vitals and nursing note reviewed. Constitutional: General: She is not in acute distress. Appearance: Normal appearance. She is not toxic-appearing. HENT: Nose: Nose normal. Mouth/Throat: Mouth: Mucous membranes are moist. Eyes: Conjunctiva/sclera: Conjunctivae normal. Cardiovascular: Rate and Rhythm: Normal rate and regular rhythm. Pulmonary: Effort: Pulmonary effort is normal. Breath sounds: Normal breath sounds. No wheezing, rhonchi or rales. Abdominal: Tenderness: There is no abdominal tenderness. There is no right CVA tenderness or left CVA tenderness. Musculoskeletal: Lumbar back: Spasms and tenderness present. No bony tenderness. Decreased range of motion. Negativeright straight leg raise test and negative left straight leg raise test. Comments: Decreased ROM lumbar spine due to pain. Patient has right-sided lumbar paraspinal tenderness with some spasm noted. No midline tenderness. Negative seated straight leg raise. Normal sensation lower extremities. Able to ambulate. Skin: General: Skin is warm and dry. Neurological: Mental Status: She is alert. Assessment and Plan ASSESSMENT/PLAN: 1. Acute right-sided low back pain without sciatica - ICD9: 724.2, ICD10: M54.50 -No fall, do not believe imaging indicated at this time. No midline tenderness. Low suspicion for fracture. Suspect muscular pain. -Due to patient age, will avoid muscle relaxers. -Lab testing from 1 year ago revealed normal kidney function. No history of diabetes. -Rx for Medrol Dosepak. -Rx for Voltaren gel -Advise no NSAIDs while using these medications. -Go to ER if she develops worsening or severe pain, numbness in the legs, bowel/bladder incontinence, fevers, inability to ambulate. She understands. -She is going to call the spine doctor she was referred to and schedule follow-up. Diagnosis and treatment plan were discussed and questions were answered to the patient's satisfaction. Pt acknowledged understanding of concepts and follow up plan. Specific signs and symptoms that would indicate the need for higher level of care were discussed in detail warranting prompt ER evaluation. AVELINO Ragland documented in this encounter[facility] History of Present illness Narrative* Henri Escobar - 07/30/2023 3:17 PM EDT Initial Podiatric Office Visit: Chief Complaint: This 83 year old female who presents with chief complaint:discolored/dystrophic toenails HPI Patient presents to clinic with complaint of dystrophic toenails Has had thick toenails for several years. Did try a topical from a provider in [place] that possibly helped but not completely Is here to discuss options. PAIN EVALUATION No data found in the last 1 encounters. No results found for: HBA1C PCP: Subhash Navas DO, DO No past medical history on file. Current Outpatient Medications Medication Sig metoprolol succinate ER (TOPROL XL) 25 mg 24 hr tablet Take 25 mg by mouth. montelukast (SINGULAIR) 10 mg tablet Take 10 mg by mouth. PARoxetine (PAXIL) 40 mg tablet Take 40 mg by mouth. pravastatin (PRAVACHOL) 40 mg tablet Take 40 mg by mouth. chlorzoxazone (PARAFON FORTE DSC) 500 mg tablet Take 500 mg by mouth. (Patient not taking: Reportedon 07/30/2023) benzonatate (TESSALON PERLES) 100 mg capsule Take 1 capsule by mouth three times daily as needed for cough. (Patient not taking: Reported on 07/30/2023) No current facility-administered medications for this visit. ALLERGIES Allergen Reactions Latex Rash No past surgical history on file. No family history on file. Social History Tobacco Use Smoking status: Never Smokeless tobacco: Never Vaping Use Vaping Use: Never used Substance Use Topics Alcohol use: Never REVIEW OF SYSTEMS GENERAL: Negative for Malaise, significant weight loss, fever RESPIRATORY: Negative for cough, wheezing and shortness of breath CARDIOVASCULAR: Negative for chest pain, leg swelling and palpitations GI: Negative for abdominal discomfort, blood in stools or black stools and change in bowel habits : Negative for dysuria, frequency and incontinence MUSCULOSKELETAL: Negative for joint pain or swelling, back pain, and muscle pain. SKIN: Negative for lesions, rash, and itching. HEMATOLOGY/LYMPHOLOGY Negative for prolonged bleeding, bruising easily, and swollen nodes. ENDOCRINE: Negative for cold or heat intolerance, polyuria, polydipsia and goiter. NEURO: negative Physical Exam: Constitutional: Pt is a well developed 83 year old female who is alert, oriented and cooperative Eyes: Following during examination. No redness or drainage. Respiratory: RR normal and nonlabored. Even breathing. No evidence of distress or shortness of breath. Psychology: Patient is engaged during conversation. Normal affect and mood. Does not appear depressed or anxious during encounter. Vascular: Dorsalis pedis and posterior tibial pulses palpable as b/l Capillary Fill time < 5 seconds to digits 1-5 b/l Skin temperature warm to warm proximal to distal b/l Hair growth present to digits Neurological: intact light touch/epicritic sensation Vibratory sensation intact b/l intact protective sensation no significant neurological deficits Dermatological: Nails 1-5 b/l appear thick, discolored, painful. Webspaces clean and dry 1-4 b/l. Skin appears wellhydrated and supple. good color, texture, turgor. No open lesions present. No callosities present. Musculoskeletal/Orthopaedic: Patient has pain to palpation of toenails Radiographs: n/a ASSESSMENT: (B35.1) Onychomycosis (primary encounter diagnosis) (M79.675) Pain in toe of left foot (M79.674) Pain in toe of right foot PLAN: We discussed the possible etiologies of discolored, dystrophic, and thickened nails including fungus, yeast, mold as well as in some instances, prior trauma, or mechanical causes such as repetitive microtrauma in shoe gear. We discussed topical medication for discolored toenails which has very low success but no major side effects. We discussed oral medication. Patient will need hepatic testing prior to use. Patient informed of risks associated with Lamisil. We discussed removal of toenails. Patient would like to proceed with topical care. Toenails 1-5 b/l debrided in length and thickness. Henri Escobar DPM Podiatry [address] [facility] [address] Dept: [phone] Dept * Silvia Ravi RN - 07/30/2023 2:40 PM EDT Patient presents with: Left Foot - New, Nail Fungus Right Foot - New, Nail Fungus Patient presents for possible toenail fungus that has been ongoing for years. States that nails arethick, discolored and hard to trim. Right foot is worse with all toenail affected, Left she states its only on a few nails. documented in this encounterOhio[facility]01-09-[facility]24 Telephone encounter Note * Telephone Encounter - Leonor Gracia LPN - 04/23/2023 8:39 AM EST Deangelo is requesting a refill for Requested Prescriptions Pending Prescriptions Disp Refills metoprolol succinate (TOPROL-XL) 25 MG 24 hr tablet 45 tablet 0 Sig: Take 0.5 (one-half) tablet (12.5 mg total) by mouth daily . Last refill: 09/26/22 Last appt: 09/26/22 Upcoming appt: 07/15/23 Please send to [facility] #[id number] [phone] Follow up: Patient contacted by phone and voice message left advising to call office or schedule anappointment on MyChart. [id number] Miscellaneous Notes* Telephone Encounter - Leonor Gracia LPN - 04/23/2023 8:39 AM EST Deangelo is requesting a refill for Requested Prescriptions Pending Prescriptions Disp Refills metoprolol succinate (TOPROL-XL) 25 MG 24 hr tablet 45 tablet 0 Sig: Take 0.5 (one-half) tablet (12.5 mg total) by mouth daily . Last refill: 09/26/22 Last appt: 09/26/22 Upcoming appt: 07/15/23 Please send to [facility] #[id number] - [place] [id number] [address] Follow up: Patient contacted by phone and voice message left advising to call office or schedule anappointment on MyChart. documented in this [id number] Telephone encounter Note* Telephone Encounter - Maria R Colorado LPN - 04/04/2023 3:45 PM EST Deangelo is requesting a refill for Requested Prescriptions Pending Prescriptions Disp Refills montelukast (SINGULAIR) 10 mg tablet 30 tablet 11 Sig: Take 1 (one) tablet (10 mg total) by mouth nightly . pravastatin (PRAVACHOL) 40 MG tablet 90 tablet 0 Sig: Take 1 (one) tablet (40 mg total) by mouth nightly Reasons: high cholesterol. Last refill: 01/30/2022 Montelukast #30 with 11 refills. 09/26/2022 Pravastatin #90 with 1 refill. Last appt: 09/26/2022 Upcoming appt: not scheduled. Patient moved to [place] and unsure if she will be getting a Providerin that area. She is living with near her family and will talk with them to schedule appointment. Patient denies being able to do video visits. Please send to [facility] #[id number] - [address] [phone] Follow up: Refill pending for review without additional follow up based on information above. [id number] Miscellaneous Notes* Telephone Encounter - Maria R Colorado LPN - 04/04/2023 3:45 PM EST Deangelo is requesting a refill for Requested Prescriptions Pending Prescriptions Disp Refills montelukast (SINGULAIR) 10 mg tablet 30 tablet 11 Sig: Take 1 (one) tablet (10 mg total) by mouth nightly . pravastatin (PRAVACHOL) 40 MG tablet 90 tablet 0 Sig: Take 1 (one) tablet (40 mg total) by mouth nightly Reasons: high cholesterol. Last refill: 01/30/2022 Montelukast #30 with 11 refills. 09/26/2022 Pravastatin #90 with 1 refill. Last appt: 09/26/2022 Upcoming appt: not scheduled. Patient moved to [place] and unsure if she will be getting a Providerin that area. She is living with near her family and will talk with them to schedule appointment. Patient denies being able to do video visits. Please send to [facility] #[id number] - [facility] [address] [address] Follow up: Refill pending for review without additional follow up based on information above. documented in this [id number] Discharge summary Author Mark Hodge [facility] February 09, 2023 6:27am Note Date/Time February 09, 2023 4 :45am [facility] Medical Records Department [address] [place] [address] Emergency Department Summary 02/09/23 MR#: [id number] Acct: [id number] Name: DEANGELO BEACH Rep #:[id number] : 1940 83 From: Mark Hodge MD PCP: Care Physician,No Primary Status :REG ER Location: ED HPI History of Present Illness Chief Complaint: Back Informant: patient Narrative Narrative: Patient presents with back pain for the past 2 days. She states it started gradually. She states she was decluttering her house, but she was not doing anyheavy lifting but now she cannot lift because it hurts worse, as it does not move. She states that a week ago she was having some discomfort that got betterbut this will not get better with the same medications that she was taking whichinclude CBD Gummies and muscle relaxers. A month ago she was here because of pain more on the left side. This is in the middle, and a little higher. She states she had an injury at work in 2007 where she fell over a conveyor belt andinjured her back and had some chronic issues from it, but she states that this is unusual because it will not get better no matter what she does and she cannotsleep, she is urinating more frequently but without dysuria, denies any abdominal pain, other GI symptoms, and denies any chest discomfort or shortness of breath or other symptoms. No pain radiating elsewhere including the legs or perineum. No numbness or weakness. No other systemic symptoms. History is limited because the patient is sort of hysterical, has a flight of ideas and hasto be redirected by the examiner multiple times and asked to repeat her statements because she is talking very fast. [facility] Medical History Cancer of kidney Hyperlipemia Hypertension Home Medications chlorzoxazone 500 mg tablet 500 mg PO TID 12/26/22 [History Last Taken Unknown] metoprolol succinate 25 mg tablet,extended release 24 hr 25 mg PO DAILY 12/27/22[History Last Taken Unknown] montelukast 10 mg tablet 10 mg PO QHS 12/27/22 [History Last Taken Unknown] paroxetine HCl 40 mg tablet 40 mg PO DAILY 12/27/22 [History Last Taken Unknown] pravastatin 40 mg tablet 40 mg PO DAILY 12/27/22 [History Last Taken Unknown] tizanidine 2 mg tablet 2 mg PO Q8H PRN muscle spasticity #20 tabs 12/27/22 [Rx Last Taken Unknown] oxycodone-acetaminophen 5 mg-325 mg tablet 1 tab PO Q6H PRN PRN Pain 3 days #12 TABLETS 02/09/23 [Rx Last Taken Unknown] Allergy/AdvReac Type Severity Reaction Status Date / Time Latex, Natural Rubber Allergy Intermediate Rash Verified 02/09/23 04:21 Surgical History H/O right nephrectomy H/O: hysterectomy Social History Smoking Status: Never smoker ROS ROS ED Constitutional Constitutional ED: Denies chills or fever(s) Eyes Eyes: Denies change in vision or diplopia ENT ENT ED: Denies rhinorrhea or sore throat Cardiovascular Cardiovascular: Denies chest pain or palpitations Respiratory/Chest Respiratory/Chest: Denies cough or dyspnea Gastrointestinal Gastrointestinal: Denies abdominal pain, diarrhea, nausea or vomiting Genitourinary Genitourinary ED: Denies dysuria or hematuria Musculoskeletal Musculoskeletal: Reports back pain; Denies neck pain Integumentary Denies abscess or rash Neurologic Neurologic: Denies headache(s), paresthesias or weakness Psychiatric Psychiatric: Reports anxiety; Denies suicidal thoughts EXAM Physical Exam Const Vital Signs: 02/09/23 04:21 Temperature 97.9 F Temperature Source Temporal Pulse Rate 95 Respiratory Rate 16 Blood Pressure 105/80 Blood Pressure Mean 88 Pulse Ox 98 Oxygen Delivery Method Room Air Positive well nourished and well developed General Appearance ED: well developed and NAD HEENT Reports moist mucous membranes normocephalic and atraumatic Eyes PERRL and EOMs intact bilaterally Neck full ROM and supple Resp normal respiratory effort and clear to auscultation bilaterally Cardio regular rate, regular rhythm and no murmurs GI non-tender and non-distended GI Narrative: No Shaka sign. No Bhatia Berman sign. Auscultation: normoactive bowel sounds Palpation: soft; Negative for pulsatile mass Back/Spine no CVA tenderness and normal to inspection General Back: other FROM Lumbar Spine / Lower Back: paraspinal muscle tenderness bilateral (Upper lumbar/lower thoracic paraspinal musculature and midline, normal on inspection) and straight leg raise negative bilaterally Extremity normal to inspection General Extremety ED: Negative for edema, pulses abnormal or tenderness General Extremity: Negative for edema or pulses abnormal Neuro oriented x3, CN's II-XII intact bilaterally, no sensory deficits noted and gait normal Sensorium / Orientation: awake and alert Motor Exam: strength 5/5 throughout Deep Tendon Reflexes: Rt Patellar (L4): 2+, Lt Patellar (L4): 2+, Rt Ankle (S1):2+ and Lt Ankle (S1): 2+ Deep Tendon Reflexes Back: Rt Patellar (L4): 2+, Lt Patellar (L4): 2+, Rt Ankle (S1): 2+ and Lt Ankle (S1): 2+ Plantar Reflex: Downgoing: bilateral Psych Psych Narrative: Anxious. Pressured speech. Skin no rashes or lesions noted and no wounds MDM MDM MDM Narrative Medical decision making narrative: I reviewed the patient's prior ED visit a month ago, she had a CT scan that showed some incidental findings but no obvious reason for her pain. I discussedthat with her, but she states this is different, and given her age and history of kidney cancer in the past, and some abnormal findings on her left kidney which is the only one she has left, in addition to the differential which includes AAA, musculoskeletal etiologies which were thought to be more likely here given the history, compression fracture, recurrent cancer with metastases to bone, left kidney, or elsewhere, I thought it prudent to repeat her CT which she was amenable to in addition to labs, urinalysis given the possibility of a urine infection, and analgesics. All of this was normal. I reviewed the CT images as well as the report which I agree with. She does incidentally have gallstones. The abnormalities in her left kidney were doubled cysts and no follow-up needed. I reexamined her, she truly does not have right upper quadrant pain or tenderness, and the pain is on her back. She is very anxious and she says that her doctor prescribed her nerve pill because she is very high strung and anxious and she understands that. She does feel little better after the discomfort she seen walking to and from the bathroom without any difficulty,and the work-up here essentially rules out any dangerous etiologies. I assume this is musculoskeletal given the history and previous activity, does not appearto have a urinary infection acutely and I will prescribe her something for pain to use in the short-term and follow-up advised. She is comfortable with that plan. Lab Data Attestation: I reviewed the patient's lab results. Labs: Laboratory Results - last 24 hr 02/09/23 02/09/23 04:50 05:42 WBC 7.0 RBC 5.00 Hgb 15.3 H Hct 46.2 MCV 92.4 MCH 30.6 MCHC 33.1 RDW Std Deviation 42.7 RDW Coeff of Valerie 12.6 Plt Count 221 MPV 10.1 Immature Gran % (Auto) 0.300 Neut % (Auto) 59.7 Lymph % (Auto) 26.2 [place] % (Auto) 8.4 Eos % (Auto) 5.0 Baso % (Auto) 0.4 Absolute Neuts (auto) 4.2 Absolute Lymphs (auto) 1.84 Nucleated RBC % 0 Sodium 138 Potassium 3.8 Chloride 107 Carbon Dioxide 29.0 Anion Gap 2 L BUN 20 H Creatinine 0.97 Estim Creat Clear Calc 41.86 Est GFR (MDRD) Af Amer 71 Est GFR (MDRD) Non-Af 59 L BUN/Creatinine Ratio 20.7 H Glucose 105 Calcium 9.4 Total Bilirubin 0.40 AST 10 L ALT 22 Alkaline Phosphatase 95 Total Protein 7.1 Albumin 3.7 Globulin 3.4 Albumin/Globulin Ratio 1.1 Lipase 25 Urine Color Yellow Urine Clarity Clear Urine pH 6.0 Ur Specific [place] 1.025 Urine Protein 15 H Urine Glucose (UA) Normal Urine Ketones Negative Urine Occult Blood 10 H Urine Nitrite Negative Urine Bilirubin Negative Urine Urobilinogen 1 H Ur Leukocyte Esterase 100 H Urine RBC 0 SEEN Urine WBC 0-5 SEEN Ur Squamous Epith Cells 0-5 SEEN Urine Bacteria 0 SEEN Urine Mucus 0 SEEN Radiography Diagnostic Testing: Clinical Impression(s) from Imaging Studies Abdomen/Pelvis CT 02/09/23 04:37 IMPRESSION: 1. Coronary artery disease. 2. Cholelithiasis. 3. Hysterectomy. 4. Bilateral simple appearing cysts each measuring 3.9 cm unchanged as previous exam. No follow-up imaging necessary. 5. Scattered diverticula without diverticulitis. 6. No acute abdominal pelvic abnormality. 7. Multiple parapelvic cysts left kidney. No follow-up imaging necessary. Electronically Signed: Fang Graves MD at 5:29 EDT , Discharge Plan Triage Chief Complaint: Back ED Provider: Mark Hodge Dx/Rx/DC Orders Clinical Impression: Acute lumbar myofascial strain Instructions: Understanding Lumbosacral Strain Prescriptions: New oxycodone-acetaminophen [oxycodone-acetaminophen] 5-325 mg tablet 1 tab PO Q6H PRN PRN (Reason: Pain) 3 Days Qty: 12 0RF No Action chlorzoxazone 500 mg tablet 500 mg PO TID Patient Comments: TAKE 1 TABLET (500 MG) BY MOUTH 3 TIMES A DAY NEEDED FOR MUSCLE SPASMS metoprolol succinate 25 mg tablet extended release 24 hr 25 mg PO DAILY paroxetine HCl 40 mg tablet 40 mg PO DAILY montelukast 10 mg tablet 10 mg PO QHS pravastatin 40 mg tablet 40 mg PO DAILY tizanidine 2 mg tablet 2 mg PO Q8H PRN (Reason: muscle spasticity) Qty: 20 0RF Primary Care Provider: Care Physician,No Primary Referrals: Doctor,Your [Non-Staff] - 3-5 Days if not improving Disposition Disposition: Home, Self Care What to do if you have Problems For any increased pain, shortness of breath, bleeding, nausea or vomiting, chestpain, or any unexpected problems, contact your Primary Care Provider. Call [facility] ([phone]) or report to the closest Emergency Room. Call 911 if necessary. 02/09/23626 <Electronically signed by Mark Hodge MD> Cosigner Signature (if applicable): CC: No Primary Care Physician ~ Signed [facility] Work Phone: [phone] Discharge summary Author Eligio Robledo [facility] December 27, 2022 1:53am Note Date/Time December 27, 2022 12:17am [facility] Medical Records Department [address] [place] [id number] Emergency Department Summary 12/27/22 MR#: [id number] Acct: [id number] Name: DEANGELO BEACH Holly Rep #:[id number] : [id number] 82 From: Eligio Robledo MD PCP: Care Physician,No Primary Status :REG ER Location: ED HPI HPI - GI History of Present Illness Chief Complaint: Nausea/Vomiting/Diarrhea Detail of Chief Complaint: Left flank pain. Informant: patient Abdominal Pain/Flank Pain Onset: Days Context: Gradual Onset Timing: Continuous Location: Left Flank Current Severity: Mild Maximum Severity: Moderate Worsened by: Nothing Relieved by: Nothing Nausea/Vomiting/Emesis GI Symptom: Positive for Nausea and Vomiting Onset: Days Severity: Mild Associated Symptoms Associated Symptoms: Positive for Frequency; Negative for Dysuria or Hematuria Narrative Narrative: 82-year-old female complaining of left flank pain started around Saturday. She thought it was secondary to muscle spasm which she has had in the past. She hasbeen using a muscle relaxant any relief. Says she is having urinary frequency but no gross hematuria or dysuria. She has developed nausea and vomiting without fever. She has had a kidney stone in the past. Also the patient has had prior right renal cancer and has had her right kidney removed and a prior hysterectomy. She still has her left kidney. Prior similar symptoms: Yes Recent Illness/Hospitalization: No PFSH PFSH Medical History Cancer of kidney Hyperlipemia Hypertension Home Medications chlorzoxazone 500 mg tablet 500 mg PO TID 12/26/22 [History Last Taken Unknown] metaxalone 800 mg tablet 800 mg PO TID PRN muscle pain 7 days #20 tabs 12/27/22 [Rx Last Taken Unknown] metoprolol succinate 25 mg tablet,extended release 24 hr 25 mg PO DAILY 12/27/22[History Last Taken Unknown] montelukast 10 mg tablet 10 mg PO QHS 12/27/22 [History Last Taken Unknown] paroxetine HCl 40 mg tablet 40 mg PO DAILY 12/27/22 [History Last Taken Unknown] pravastatin 40 mg tablet 40 mg PO DAILY 12/27/22 [History Last Taken Unknown] Allergy/AdvReac Type Severity Reaction Status Date / Time Latex, Natural Rubber Allergy Intermediate Rash Verified 12/26/22 23:54 Surgical History H/O right nephrectomy H/O: hysterectomy Social History Smoking Status: Never smoker ROS ROS ED ROS Narrative Left flank pain. Nausea. Review of Systems ROS Unobtainable: Denies due to encephalopathy Constitutional Constitutional ED: Denies chills or fever(s) ENT ENT ED: Denies ear pain Cardiovascular Cardiovascular: Denies chest pain Respiratory/Chest Respiratory/Chest: Denies cough or dyspnea Gastrointestinal Gastrointestinal: Reports abdominal pain, nausea and vomiting Genitourinary Genitourinary ED: Denies dysuria or hematuria Musculoskeletal Musculoskeletal: Reports back pain; Denies arthralgias Integumentary Denies abscess or Abrasions Neurologic Neurologic: Denies headache(s) Psychiatric Psychiatric: Denies anxiety or depression Endocrine Endocrinology: Denies polydipsia Hematologic/Lymphatic Hematologic/Lymphatic: Denies easy bleeding or easy bruising Allergic/Immunologic Allergic/Immunologic ED: Denies mouth swelling or tongue swelling EXAM Physical Exam Narrative Exam Narrative: Well-appearing 82-year-old female. Vital signs stable afebrile. H EENT exam unremarkable other than mildly dry mucous membranes. Neck nontender no lymphadenopathy. Lungs clear to auscultation bilaterally. Heart regular rhythmrate about 80 no murmur. Chest wall and ribs nontender. Abdomen soft nontender. Nondistended normal bowel sounds no peritoneal signs. Back mild left CVA and paraspinal soft tissue tenderness. No signs of trauma. Spine nontender. Moving all 4 extremities. Neurovascular intact. Normal strength and sensation. No motor loss. No weakness. She is awake and alert. Const Vital Signs: 12/26/22 23:51 Temperature 96.9 F L Temperature Source Temporal Pulse Rate 78 Respiratory Rate 16 Blood Pressure 152/72 H Blood Pressure Mean 98 Pulse Ox 100 Oxygen Delivery Method Room Air Positive well nourished and well developed; Negative for cachectic, contracturesor unkempt General Appearance ED: well developed and NAD; Negative for unkempt, cachectic, contractures or pallor Nutritional Appearance: Negative for cachectic HEENT Reports dry mucous membranes; Denies moist mucous membranes normocephalic and atraumatic; Negative for trauma or tenderness Mouth ED: Yes dry mucous membranes Mouth: dry mucous membranes Eyes PERRL and EOMs intact bilaterally General Eye ED: Negative for pale conjunctiva or scleral icterus Neck no lymphadenopathy, supple and no JVD General: Negative for tenderness Carotids: Negative for other Resp normal respiratory effort and clear to auscultation bilaterally Effort and Inspection: Negative for respiratory distress Auscultation: Negative for rales, rhonchi or wheezes Cardio regular rate, regular rhythm, S1 normal heart sound, S2 normal heart sound and no murmurs Rate: Negative for bradycardia or tachycardic Rhythm: Negative for abnormal rhythm GI non-tender and non-distended Inspection: Negative for abdominal distention Auscultation: normoactive bowel sounds Palpation: soft; Negative for tender or guarding Back/Spine Negative for no CVA tenderness Back/Spine Narrative: Left flank tenderness. Left paraspinal muscle tenderness. General Back: Negative for CVA tenderness Cervical Spine: Negative for cervical spine tenderness Thoracic Spine / Upper Back: Negative for thoracic spinal tenderness Lumbar Spine / Lower Back: Negative for lumbar spinal tenderness Coccyx: Negative for other Extremity full ROM General Extremety ED: Negative for edema or tenderness General Extremity: Negative for edema Neuro CN's II-XII intact bilaterally and moves all extremities Sensorium / Orientation: alert, oriented to person, oriented to place and oriented to time; Negative for orientation impaired, confused, lethargic or stuporous Psych mental status grossly normal and thought process normal Appearance: Negative for unkempt or other Attitude: No agitated Mood & Affect: Negative for depressed, anxious or tearful Skin no wounds General Skin Exam: Negative for jaundice or pallor Lesions: no lesions Rashes: no rashes Trauma: Negative for abrasion Nails: Negative for discolored MDM MDM MDM Narrative Medical decision making narrative: 82-year-old female with left flank pain for several days could be muscle spasms versus kidney stone or urinary tract infection versus other etiologies. CAT scan along with screening labs to be obtained. Treated with IV morphine and Zofran. IV fluids for what appears to be mild dehydration. Repeat exam at 1:45 AM patient is doing better. She received morphine and Zofran. We discussed her test results Labs and urine were unremarkable. CAT scan showed most likely renal and pelvic cysts which I discussed with her follow-up due to her history of right renal cancer. The pain is definitely reproducible on the left paraspinal musculature. She has had a history of muscle spasms. Discussed all test results with the patient and her brother is in the room. She will be referred to a local primary care physician because [facility] not have a local physician she recently moved [facility]. She willbe discharged to home with a prescription for Skelaxin. Given 1 dose here. Shewill be given a second dose of morphine prior to discharge. I suspect this is secondary to muscle spasms in her back. History & Record Review Discussion w/independent historian: Patient and Family Additional record(s) reviewed:: Prior inpatient record, Prior outpatient record,Prior ED visit and Prior labs Lab Data Attestation: I reviewed the patient's lab results. Lab results narrative: CBC unremarkable. White count 6.4. H&H 14.9 and 45. Platelets 237. Electrolytes show a gap of 3. BUN and creatinine at 22 and 0.9. Glucose of 110. Urinalysis shows no nitrates. No white or red cells. 2+ bacteria. CAT scan without contrast shows no acute findings. Suspected left renal cyst and pelvic cysts. Be discussed with the patient for follow-up. Labs: Laboratory Results - last 24 hr 12/27/22 12/27/22 00:28 01:00 WBC 6.4 RBC 4.87 Hgb 14.9 Hct 45.4 MCV 93.2 MCH 30.6 MCHC 32.8 RDW Std Deviation 43.1 RDW Coeff of Valerie 12.5 Plt Count 237 MPV 10.1 Immature Gran % (Auto) 0.200 Neut % (Auto) 61.4 Lymph % (Auto) 24.7 [place] % (Auto) 8.8 Eos % (Auto) 4.7 Baso % (Auto) 0.2 Absolute Neuts (auto) 3.9 Absolute Lymphs (auto) 1.57 Nucleated RBC % 0 Sodium 140 Potassium 3.8 Chloride 109 H Carbon Dioxide 28.0 Anion Gap 3 L BUN 22 H Creatinine 0.96 Estim Creat Clear Calc 43.03 Est GFR (MDRD) Af Amer 72 Est GFR (MDRD) Non-Af 59 L BUN/Creatinine Ratio 22.9 H Glucose 110 H Calcium 9.9 Urine Color Yellow Urine Clarity Clear Urine pH 6.0 Ur Specific [place] 1.020 Urine Protein Negative Urine Glucose (UA) Normal Urine Ketones 5 H Urine Occult Blood 25 H Urine Nitrite Negative Urine Bilirubin 1 H Urine Urobilinogen 1 H Ur Leukocyte Esterase 500 H Urine RBC 0-5 SEEN Urine WBC 0-5 SEEN Ur Squamous Epith Cells 0-5 SEEN Urine Bacteria 2+ Urine Mucus 0 SEEN Radiography Diagnostic Testing: Clinical Impression(s) from Imaging Studies Abdomen/Pelvis CT 12/27/22 00:11 IMPRESSION: No acute findings. Right nephrectomy. Left kidney with a few probable parapelvic cysts. Given the history of prior right renal malignancy and no prior studies consider follow-up imaging with MRI for further characterization. Cholelithiasis. Colonic diverticulosis without evidence of acute diverticulitis. Bilateral ovarian cystic structures, approximately 4 cm. Follow-up pelvic ultrasound as clinically indicated. Electronically Signed: Judy Mcginnis MD at 1:20 EDT , Discharge Plan Triage Chief Complaint: Nausea/Vomiting/Diarrhea ED Provider: Eligio Robledo Dx/Rx/DC Orders Clinical Impression: Acute left flank pain, History of primary malignant neoplasm of right kidney, Back muscle spasm Instructions: ED Back Spasm, No Trauma Prescriptions: New metaxalone 800 mg tablet 800 mg PO TID PRN (Reason: muscle pain) 7 Days Qty: 20 0RF No Action chlorzoxazone 500 mg tablet 500 mg PO TID Patient Comments: TAKE 1 TABLET (500 MG) BY MOUTH 3 TIMES A DAY NEEDED FOR MUSCLE SPASMS metoprolol succinate 25 mg tablet extended release 24 hr 25 mg PO DAILY paroxetine HCl 40 mg tablet 40 mg PO DAILY montelukast 10 mg tablet 10 mg PO QHS pravastatin 40 mg tablet 40 mg PO DAILY Primary Care Provider: Care Physician,No Primary Referrals: Subhash Phan MD [Med Staff - Director Of Photography] - As soon as possible Care Physician,No Primary [Primary Care Provider] - Activity Restrictions/Additional Instructions: Motrin and Tylenol for pain. Hot shower, warm bath and massage to loosen up the muscles in your back. I think this is secondary to muscle spasms in your back. Skelaxin which is a muscle relaxant 1 pill 3 times a day for the next 7 days as needed. It will take several days to start showing a significant difference. Follow-up with a local primary care physician. Disposition Disposition: Home, Self Care What to do if you have Problems For any increased pain, shortness of breath, bleeding, nausea or vomiting, chestpain, or any unexpected problems, contact your Primary Care Provider. Call [facility] ([phone]) or report to the closest Emergency Room. Call 911 if necessary. 12/27/22 0153 <Electronically signed by Eligio Robledo MD> Cosigner Signature (if applicable): CC: No Primary Care Physician ~ Signed [facility] Work Phone: [phone] Miscellaneous Notes* Telephone Encounter - Leonie Saha - 12/18/2022 7:36 AM EDT Patient given results and verbalized understanding of instructions given. Leonie aSha * Telephone Encounter - Leonie Saha - 12/18/2022 7:35 AM EDT ----- Message from Ligia Naylor APRN.STACK CLERK sent at 12/18/2022 7:22 AM EDT ----- Please advise patient the COVID, flu, RSV test was negative. documented in this encounterOhio[facility] History of Present illness Narrative* Amelia Escalona APRN.CNP - 12/17/2022 2:27 PM EDT This note was created using [email or web address]. Subjective Deangelo Beach is a 82 year old female. 82 year old female with PMH asthma, HTN, and hyperlipidemia presents for illness. Acute onset 7 days ago + productive cough +sinus pressure +post nasal drainage. +sore throat +fever/ chills Denies SOB or dyspnea Denies using homeopathic or OTC medications WEIGHT CALCULATOR. Denies tobacco usage. The history is provided by the patient. No speech language pathologist travel was used. Sinusitis This is a new problem. The current episode started in the past 7 days. The problem has been gradually worsening since onset. There has been no fever. Her pain is at a severity of 5/10. The pain is moderate. Associated symptoms include chills, congestion, coughing, headaches, sinus pressure, sneezing and a sore throat. Pertinent negatives include no diaphoresis, ear pain, hoarse voice, neck pain, shortness of breath or swollen glands. Past treatments include nothing. The treatment provided no relief. No past medical history on file. No past surgical history on file. ALLERGIES Patient has no known allergies. MEDICATIONS chlorzoxazone (PARAFON FORTE DSC) 500 mg tablet Take 500 mg by mouth. metoprolol succinate ER (TOPROL XL) 25 mg 24 hr tablet Take 12.5 mg by mouth. montelukast (SINGULAIR) 10 mg tablet Take 10 mg by mouth. PARoxetine (PAXIL) 40 mg tablet Take 40 mg by mouth. pravastatin (PRAVACHOL) 40 mg tablet Take 40 mg by mouth. doxycycline monohydrate 100 mg tablet Take 1 tablet by mouth twice daily for 7 days. benzonatate (TESSALON PERLES) 100 mg capsule Take 1 capsule by mouth three times daily as needed for cough. No family history on file. Review of Systems Constitutional: Positive for chills. Negative for diaphoresis. HENT: Positive for congestion, sinus pressure, sneezing and sore throat. Negative for ear pain and hoarse voice. Respiratory: Positive for cough. Negative for shortness of breath. Cardiovascular: Negative for chest pain, palpitations and leg swelling. Gastrointestinal: Negative for abdominal pain, diarrhea, nausea and vomiting. Musculoskeletal: Positive for myalgias. Negative for arthralgias, back pain and neck pain. Skin: Negative for color change, pallor, rash and wound. Allergic/Immunologic: Negative for environmental allergies, food allergies and immunocompromised state. Neurological: Positive for headaches. Negative for dizziness and facial asymmetry. Hematological: Negative for adenopathy. Does not bruise/bleed easily. Psychiatric/Behavioral: Negative for agitation and behavioral problems. Objective BP 118/68 Pulse 78 Temp 36.8 C (98.3 F) Resp 16 Wt 68.9 kg (152 lb) SpO2 97% Physical Exam Vitals and nursing note reviewed. Constitutional: General: She is not in acute distress. Appearance: Normal appearance. She is normal weight. She is not ill-appearing, toxic-appearing or diaphoretic. HENT: Head: Normocephalic and atraumatic. Right Ear: Ear canal and external ear normal. Left Ear: Ear canal and external ear normal. Nose: Rhinorrhea present. No congestion. Mouth/Throat: Mouth: Mucous membranes are moist. Pharynx: No oropharyngeal exudate or posterior oropharyngeal erythema. Eyes: General: Right eye: No discharge. Left eye: No discharge. Extraocular Movements: Extraocular movements intact. Conjunctiva/sclera: Conjunctivae normal. Pupils: Pupils are equal, round, and reactive to light. Cardiovascular: Rate and Rhythm: Normal rate and regular rhythm. Pulses: Normal pulses. Heart sounds: Normal heart sounds. No murmur heard. No friction rub. Pulmonary: Effort: Pulmonary effort is normal. No respiratory distress. Breath sounds: Normal breath sounds. No stridor. No wheezing, rhonchi or rales. Chest: Chest wall: No tenderness. Abdominal: General: Abdomen is flat. There is no distension. Palpations: Abdomen is soft. There is no mass. Tenderness: There is no abdominal tenderness. There is no right CVA tenderness, left CVA tenderness, guarding or rebound. Hernia: No hernia is present. Musculoskeletal: General: No swelling, tenderness, deformity or signs of injury. Normal range of motion. Cervical back: Normal range of motion and neck supple. No rigidity. Right lower leg: No edema. Left lower leg: No edema. Lymphadenopathy: Cervical: No cervical adenopathy. Skin: General: Skin is warm and dry. Capillary Refill: Capillary refill takes less than 2 seconds. Coloration: Skin is not jaundiced or pale. Findings: No bruising, erythema, lesion or rash. Neurological: General: No focal deficit present. Mental Status: She is alert and oriented to person, place, and time. Cranial Nerves: No cranial nerve deficit. Sensory: No sensory deficit. Motor: No weakness. Coordination: Coordination normal. Gait: Gait normal. Psychiatric: Mood and Affect: Mood normal. Behavior: Behavior normal. Thought Content: Thought content normal. Judgment: Judgment normal. Assessment and Plan ASSESSMENT/PLAN: 1. URI, acute - ICD9: 465.9, ICD10: J06.9 X 5 to 7 days Lungs CTA Differentials are pneumonia vs viral URI No imaging available Will provide Doxcyline, If flu testing negative. RX Tessalon Perles - Symptomatic treatment with prn analgesia - Supportive care with fluids and rest - Follow up in 3-5 days if symptoms persist or sooner if worsening of symptoms - COVID & INFLUENZA A/B & RSV NAAT, ROUTINE Amelia Escalona APRN.STACK CLERK documented in this encounterOhio[facility]08-10-2022 History of Present illness Narrative* Subhash Navas DO - 11/22/2021 1:37 PM EDT Assessment/Plan: Diagnoses and all orders for this visit: Asthma, intermittent, uncomplicated Environmental and seasonal allergies Essential hypertension Hyperlipidemia, unspecified hyperlipidemia type Irritable bowel syndrome, unspecified type No change in current meds Follow up in 6 months Subjective: Patient ID: Deangelo Beach is a 81 y.o. female. Asthma There is no chest tightness, cough, difficulty breathing, shortness of breath or wheezing. This is a chronic problem. The current episode started more than 1 year ago. Progression since onset: improved since added montelukast. The cough is non-productive. Associated symptoms include dyspnea on exertion and nasal congestion. Pertinent negatives include no chest pain, ear pain, fever, headaches, postnasal drip, rhinorrhea, sneezing or sore throat. Relieved by: montelukast. Her past medical history is significant for asthma. Allergic Reaction Chronicity: patient has environment and seasonal allergies. The problem has been gradually improving since onset. Associated with: grass, mold, trees, ragweed, Pertinent negatives include no chest pain, coughing, diarrhea, difficulty breathing, eye itching, eye redness, rash or wheezing. Treatmentstried: montelukast. The treatment provided significant relief. Her past medical history is significant for asthma and seasonal allergies. Hypertension This is a chronic problem. The current episode started more than 1 year ago. Associated symptoms include anxiety. Pertinent negatives include no chest pain, headaches, palpitations, peripheral edema or shortness of breath. Risk factors for coronary artery disease include family history, dyslipidemia, sedentary lifestyle, post-menopausal state and stress. Treatments tried: currently on metoprolol succinate 12.5 mg daily. Hyperlipidemia This is a chronic problem. The current episode started more than 1 year ago. Pertinent negatives include no chest pain or shortness of breath. Treatments tried: Patientis taking pravastatin Risk factors for coronary artery disease include family history, dyslipidemia, hypertension, a sedentary lifestyle and post-menopausal. Anxiety Presents for follow-up visit. Symptoms include excessive worry, irritability and nervous/anxious behavior. Patient reports no chest pain, decreased concentration, dizziness, palpitations, shortness of breath or suicidal ideas. Symptoms occur constantly. The severity of symptoms is moderate. The quality of sleep is fair. Her past medical history is significant for asthma. Compliance with medications: Patient does take her paroxetine 40 mg daily. Social History Tobacco Use Smoking status: Never Smokeless tobacco: Never Vaping Use Vaping Use: Never used Substance Use Topics Alcohol use: No Drug use: No Family History Problem Relation Age of Onset Hypertension Father Heart attack Father Hyperlipidemia Brother Hyperlipidemia Sister Heart disease Paternal Grandfather Allergies Allergen Reactions Alendronate GI Intolerance Severe GERD Pyhjugw-Gvr-Bnc Reductase Inhibitors Zocor [Simvastatin] Latex Rash The following portions of the patient's history were reviewed and updated as appropriate: allergies, current medications, past family history, past medical history, past social history, past surgicalhistory and problem list. Review of Systems Constitutional: Positive for irritability. Negative for activity change, chills, fatigue and fever. HENT: Negative for congestion, ear pain, postnasal drip, rhinorrhea, sinus pressure, sneezing and sore throat. Eyes: Negative for redness, itching and visual disturbance. Respiratory: Negative for cough, chest tightness, shortness of breath and wheezing. Cardiovascular: Positive for dyspnea on exertion. Negative for chest pain, palpitations and leg swelling. Gastrointestinal: Negative for blood in stool, constipation and diarrhea. No heartburn Genitourinary: Negative for difficulty urinating, flank pain, frequency, hematuria and urgency. Musculoskeletal: Negative for arthralgias and gait problem. Skin: Negative for rash. Allergic/Immunologic: Positive for environmental allergies. Neurological: Negative for dizziness, weakness and headaches. Hematological: Negative for adenopathy. Psychiatric/Behavioral: Negative for agitation, decreased concentration, sleep disturbance and suicidal ideas. The patient is nervous/anxious. Objective: BP 110/80 Pulse 76 Temp (!) 96.4 F (35.8 C) Ht 5' 6 Wt 71.7 kg (158 lb) SpO2 96% BMI 25.50 kg/m Physical Exam Constitutional: General: She is not in acute distress. HENT: Right Ear: Tympanic membrane normal. Left Ear: Tympanic membrane normal. Nose: Rhinorrhea present. No congestion. Mouth/Throat: Comments: Clear drainage in posterior pharynx Cardiovascular: Rate and Rhythm: Normal rate and regular rhythm. Heart sounds: Normal heart sounds. No murmur heard. Pulmonary: Effort: Pulmonary effort is normal. Breath sounds: Normal breath sounds. No wheezing, rhonchi or rales. Musculoskeletal: Cervical back: Neck supple. No muscular tenderness. Right lower leg: No edema. Left lower leg: No edema. Lymphadenopathy: Cervical: No cervical adenopathy. Psychiatric: Mood and Affect: Mood and affect normal. For any new medications prescribed today, patient was educated about indications for the medication, how to take the medication and potential side effects of the medications. This note was generated using Trovebox voice recognition software in an effort to expedite communication. Please excuse results in grammatical or wording errors. documented in this [id number] History of Present illness Narrative* Subhash Navas DO - 01/03/2021 1:43 PM EDT Assessment/Plan: Diagnoses and all orders for this visit: Allergic asthma, mild intermittent, with acute exacerbation - albuterol (PROVENTIL) 2.5 mg /3 mL (0.083 %) nebulizer solution 2.5 mg - predniSONE (DELTASONE) 20 MG tablet; Take 2 (two) tablets (40 mg total) by mouth daily for 5 days. - Patient refused use of inhalers Asthma, intermittent, uncomplicated - montelukast (SINGULAIR) 10 mg tablet; Take 1 (one) tablet (10 mg total) by mouth nightly . Environmental and seasonal allergies - montelukast (SINGULAIR) 10 mg tablet; Take 1 (one) tablet (10 mg total) by mouth nightly . - Patient also started using Claritin daily Patient to follow-up in 1 month Subjective: Patient ID: Deangelo Beach is a 80 y.o. female. Asthma She complains of difficulty breathing, shortness of breath and wheezing. There is no cough. Chronicity: Patient has intermittent asthma. Episode onset: Years ago. Progression since onset: Recently has flared up. The cough is non- productive. Associated symptoms include dyspnea on exertion and nasal c ongestion. Pertinent negatives include no chest pain, fever, rhinorrhea, sneezing or sore throat. Relieved by: Patient is not taking any medication. Her past medical history is significant for asthma. Hypertension This is a chronic problem. The current episode started more than 1 year ago. Associated symptoms include anxiety and shortness of breath. Pertinent negatives include no chest pain, palpitations or peripheral edema. Risk factors for coronary artery disease include family history, dyslipidemia, sedentary lifestyle, post-menopausal state and stress. Treatments tried: currently on metoprolol succinate 12.5 mg daily. Hyperlipidemia This is a chronic problem. The current episode started more than 1 year ago. Associated symptoms include shortness of breath. Pertinent negatives include no chest pain. Treatments tried: Patientis taking pravastatin Risk factors for coronary artery disease include family history, dyslipidemia, hypertension, a sedentary lifestyle and post-menopausal. Anxiety Presents for follow-up visit. Progression since onset: Increased due to stopping the paroxetine. Symptoms include excessive worry, irritability, nervous/anxious behavior and shortness of breath. Patient reports no chest pain, decreased concentration, dizziness, palpitations or suicidal ideas. Symptoms occur constantly. The severity of symptoms is moderate. The symptoms are aggravated by medication withdrawal. The quality of sleep is fair. Her past medical history is significant for asthma. Treatments tried: patient is taking paroxetine.The treatment provided moderate relief. Compliance with prior treatments has been good (usually good. Not sure why she did not renew her paroxetine\). Compliance with medications: Patient does take her paroxetine 40 mg daily. Social History Tobacco Use Smoking status: Never Smoker Smokeless tobacco: Never Used Vaping Use Vaping Use: Never used Substance Use Topics Alcohol use: No Drug use: No Family History Problem Relation Age of Onset Hypertension Father Heart attack Father Hyperlipidemia Brother Hyperlipidemia Sister Heart disease Paternal Grandfather Allergies Allergen Reactions Alendronate GI Intolerance Severe GERD Mnkptao-Gtq-Keg Reductase Inhibitors Zocor [Simvastatin] Latex Rash The following portions of the patient's history were reviewed and updated as appropriate: allergies, current medications, past family history, past medical history, past social history, past surgicalhistory and problem list. Review of Systems Constitutional: Positive for irritability. Negative for activity change, chills, fatigue and fever. HENT: Negative for congestion, rhinorrhea, sinus pressure, sneezing and sore throat. Eyes: Negative for visual disturbance. Respiratory: Positive for shortness of breath and wheezing. Negative for cough and chest tightness. Cardiovascular: Positive for dyspnea on exertion. Negative for chest pain, palpitations and leg swelling. Gastrointestinal: Negative for blood in stool, constipation and diarrhea. No heartburn Genitourinary: Negative for difficulty urinating, flank pain, frequency, hematuria and urgency. Musculoskeletal: Negative for arthralgias and gait problem. Allergic/Immunologic: Negative for environmental allergies. Neurological: Negative for dizziness and weakness. Hematological: Negative for adenopathy. Psychiatric/Behavioral: Negative for agitation, decreased concentration, sleep disturbance and suicidal ideas. The patient is nervous/anxious. Objective: BP 110/60 Pulse 76 Temp 98 F (36.7 C) Ht 5' 6 Wt 72.6 kg (160 lb) SpO2 93% BMI 25.82 kg/m Physical Exam Constitutional: General: She is in acute distress. Appearance: She is not ill-appearing. HENT: Right Ear: Tympanic membrane normal. Left Ear: Tympanic membrane normal. Nose: Congestion present. No mucosal edema or rhinorrhea. Mouth/Throat: Pharynx: Oropharynx is clear. Neck: Thyroid: No thyromegaly. Vascular: No carotid bruit. Cardiovascular: Rate and Rhythm: Normal rate and regular rhythm. Heart sounds: Normal heart sounds. No murmur heard. Pulmonary: Effort: Pulmonary effort is normal. Breath sounds: Decreased breath sounds and wheezing present. No rhonchi or rales. Comments: Symptoms improved after albuterol nebulization. Chest: Breasts: Right: No supraclavicular adenopathy. Left: No supraclavicular adenopathy. Musculoskeletal: Cervical back: Neck supple. No muscular tenderness. Lymphadenopathy: Cervical: No cervical adenopathy. Upper Body: Right upper body: No supraclavicular adenopathy. Left upper body: No supraclavicular adenopathy. Psychiatric: Mood and Affect: Mood and affect normal. For any new medications prescribed today, patient was educated about indications for the medication, how to take the medication and potential side effects of the medications. This note was generated using Trovebox voice recognition software in an effort to expedite communication. Please excuse results in grammatical or wording errors. documented in this [id number] History of Present illness Narrative* Bridgette Strickland DO - 12/13/2020 3:51 PM EDT Associated Order(s): Excision of left upper back mass Post-Procedure Diagnose(s): Mass of subcutaneous tissue of back Excision of left upper back mass Date/Time: 12/13/2020 3:51 PM Performed by: Bridgette Strickland DO Authorized by: Bridgette Strickland DO Verbal consent: obtained Written consent: obtained Consent given by: patient Relevant documents: Relevent documents present and verified. Medical history, medications, allergies and physical assessment reviewed/completed Test results: test results available and properly labeled Site: site marked by physician or proceduralist who is privileged and credentialed to perform procedure Relevant imaging studies available and labeled: Yes Time out: Immediately prior to procedure a time out was called to verify the correct patient, procedure, equipment, client support associate and site/side marked as required. Physician or proceduralist has discussed critical or nonroutine steps, procedure duration and anticipated blood loss: Yes All team members agree to proceed: Yes Preparation: Patient was prepped and draped in usual sterile fashion Local anesthesia used?: Yes Anesthesia: Local infiltration Local anesthetic: Lidocaine 1% with epinephrine Anesthetic total (ml): 5 Patient sedated: no Patient tolerance: Patient tolerated the procedure well with no immediate complications The skin overlying the left upper back mass was anesthetized. The skin was opened using a #15 scalpel. An irregular shaped lipomatous mass was seen immediately under the skin. This was dissected out with scissors and a hemostat until it was removed completely. The mass was 6x5 cm in size. documented in this [id number] History of Present illness Narrative* Bridgette Strickland DO - 11/23/2020 10:20 PM EDT [facility] General [facility] [phone] History and Physical Exam: Patient: Deangelo Beach CSN: [id number] : 1940 Date: 11/23/20 Reason for Visit: Chief Complaint Patient presents with Consult Mass of subcutaneous tissue of back, Dr. Navas referral Assessment and Plan: Problem List Mass of subcutaneous tissue of back Left upper back lipomatous mass 6x8 cm in size, fairly superficial Plan for office excision under local anesthesia I spent 20 minutes with this patient, with more than 50% of the time devoted to discussing symptoms, examination, data review and counseling the patient about diagnosis, treatment approach and prognosis. Bridgette Strickland DO History of Present Illness: Deangelo Beach is a 80 y.o. y/o female who presents to the office today with left upper back mass. She states this has been present for many years but has been growingin size over the past few years. It generally does not bother her but her primary care doctor was concerned because it has been growing in size. It is uncomfortable at times and can be seen through her clothing easily. Review of Systems: - General ROS: negative for - chills, fatigue or fever ENT ROS: positive for - sinus pain and allergies Hematological and Lymphatic ROS: negative for - bleeding problems or blood clots Respiratory ROS: positive for - shortness of breath Cardiovascular ROS: no chest pain or dyspnea on exertion Gastrointestinal ROS: positive for - gas/bloating Genito-Urinary ROS: no dysuria, trouble voiding, or hematuria Musculoskeletal ROS: positive for - joint pain, joint stiffness and muscle pain Neurological ROS: no TIA or stroke symptoms Past Medical History: Diagnosis Date Acute bronchospasm Allergy Anxiety Asthma Cancer (HCC) kidney Cat allergies Cephalgia Colon polyp Contusion, chest wall Diarrhea Diverticular disease Eczema Essential hypertension 01/26/2016 Fatigue Hyperlipidemia Hypertension IBS (irritable bowel syndrome) Inflammatory bowel disease Kidney disease kidney anomaly Multiple contusions of trunk Osteopenia Otitis media Rash Rhinitis due to pollen Sleep disturbance Sprain of left knee Thyromegaly Past Surgical History: Procedure Laterality Date CYSTO URETERAL STENT PLACEMENT N/A 09/25/2016 Procedure: Flexible cystoscopy, left retrograde pyelogram with ureteral stent placement, 6F x 26cm.Fluoroscopy time <1 hour with interpretation of images.; Surgeon: Angelica Torrez MD; Location: Main OR; Service: CYSTO URETEROSCOPY Left 11/07/2016 Procedure: CYSTOSCOPY WITH LEFT URETEROSCOPY W/ LITHOTRIPSY AND LEFT STENT REMOVAL POSSIBLE LEFT STENT PLACEMENT; Surgeon: Luisana Ram MD; Location: [facility] [place] Main OR; Service: EGD N/A 11/11/2015 Procedure: EGD; Surgeon: Gold Hope MD; Location: [facility]; Service: EYE SURGERY HYSTERECTOMY N/A 1982 NEPHRECTOMY Right 2010 NEPHRECTOMY Right Family History Problem Relation Age of Onset Hypertension Father Heart attack Father Hyperlipidemia Brother Hyperlipidemia Sister Heart disease Paternal Grandfather Social History Socioeconomic History Marital status: Single Spouse name: Not on file Number of children: Not on file Years of education: Not on file Highest education level: Not on file Occupational History Not on file Tobacco Use Smoking status: Never Smoker Smokeless tobacco: Never Used Vaping Use Vaping Use: Never used Substance and Sexual Activity Alcohol use: No Drug use: No Sexual activity: Never Other Topics Concern Not on file Social History Narrative Not on file Social Determinants of Health Financial Resource Strain: Difficulty of Paying Living Expenses: Food Insecurity: No Food Insecurity Worried About Running Out of Food in the Last Year: Never true Ran Out of Food in the Last Year: Never true Transportation Needs: No Transportation Needs Lack of Transportation (Medical): No Lack of Transportation (Non-Medical): No Physical Activity: Days of Exercise per Week: Minutes of Exercise per Session: Stress: Feeling of Stress : Social Connections: Unknown Frequency of Communication with Friends and Family: More than three times a week Frequency of Social Gatherings with Friends and Family: More than three times a week Attends Yarsani Services: Not on file Active Member of Clubs or Organizations: Not on file Attends Club or Organization Meetings: Not on file Marital Status: Not on file Vitals: 11/23/20 1000 BP: 134/83 Pulse: 90 SpO2: 95% Weight: 71.8 kg (158 lb 6.4 oz) Height: 5' 6 Physical Exam: HEENT: Normocephalic, atraumatic NEURO: CN II-XII grossly intact CARDIAC: regular rate & rhythm LUNGS: Clear to auscultation, no respiratory distress ABDOMEN: soft, non-tender MUSCULOSKELETAL: ROM intact throughout EXTREMITIES: No evidence of cyanosis, clubbing or edema. SKIN: left upper back mass approximately 6x8 cm in size, freely mobile, soft Labs: WBC Date Value Ref Range Status 09/27/2020 4.95 4.50 - 11.00 K/mcL Final RBC Date Value Ref Range Status 09/27/2020 5.01 4.00 - 5.20 M/mcL Final Hemoglobin Date Value Ref Range Status 09/27/2020 15.8 12.0 - 16.0 g/dL Final Hematocrit Date Value Ref Range Status 09/27/2020 48.3 (H) 36.0 - 46.0 % Final Platelets Date Value Ref Range Status 09/27/2020 238 150 - 400 K/mcL Final Potassium Date Value Ref Range Status 09/27/2020 4.7 3.5 - 5.1 mmol/L Final Chloride Date Value Ref Range Status 09/27/2020 105 98 - 108 mmol/L Final Bicarbonate Date Value Ref Range Status 09/27/2020 25 21 - 32 mmol/L Final Anion Gap Date Value Ref Range Status 09/27/2020 16 10 - 20 mmol/L Final Glucose Date Value Ref Range Status 09/27/2020 81 65 - 99 mg/dL Final BUN Date Value Ref Range Status 09/27/2020 16 8 - 25 mg/dL Final Creatinine Date Value Ref Range Status 09/27/2020 0.84 0.60 - 1.20 mg/dL Final 07/01/2014 1.0 0.6 - 1.2 mg/dL Final Albumin Date Value Ref Range Status 09/27/2020 4.5 3.2 - 5.2 g/dL Final Calcium Date Value Ref Range Status 09/27/2020 9.8 8.4 - 10.2 mg/dL Final Alkaline Phosphatase Date Value Ref Range Status 09/27/2020 105 40 - 150 U/L Final AST Date Value Ref Range Status 09/27/2020 18 0 - 45 U/L Final ALT Date Value Ref Range Status 09/27/2020 12 0 - 40 U/L Final Total Bilirubin Date Value Ref Range Status 09/27/2020 0.6 0.0 - 1.3 mg/dL Final No results found for: INR, PROTIME documented in this [id number] Miscellaneous Notes* Assessment & Plan Note - Bridgette Strickland DO - 11/23/2020 10:20 PM EDT Associated Problem(s): Mass of subcutaneous tissue of back Left upper back lipomatous mass 6x8 cm in size, fairly superficial Plan for office excision under local anesthesia documented in this [id number] History of Present illness Narrative* Subhash Navas, DO - 10/03/2020 1:05 PM EDT Images from the original note were not included. Assessment/Plan: Mass of subcutaneous tissue of back - Ambulatory referral to General Surgery; Future Muscle spasm - chlorzoxazone (PARAFON FORTE) 500 mg tablet; Take 1 (one) tablet (500 mg total) by mouth 3 (three) times a day as needed for muscle spasms . Anxiety - hydrOXYzine (VISTARIL) 25 MG capsule; Take 1 (one) capsule (25 mg total) by mouth 3 (three) timesa day as needed for anxiety . Hyperlipidemia, unspecified hyperlipidemia type Essential hypertension Asthma, intermittent, uncomplicated Patient to follow-up in 3 months or sooner if needed Subjective: Patient ID: Deangelo Beach is a 80 y.o. female. Mass upper back Patient does think that the mass has increased and is interested in having it removed. We will schedule her with general surgery. Hypertension This is a chronic problem. The current episode started more than 1 year ago. Associated symptoms include anxiety and shortness of breath. Pertinent negatives include no palpitations or peripheral edema. Risk factors for coronary artery disease include family history, dyslipidemia, sedentary lifestyle, post- menopausal state and stress. Treatments tried: currently on metoprolol succinate 12.5 mg daily. The current treatment provides significant improvement. There are no compliance problems. Hyperlipidemia This is a chronic problem. The current episode started more than 1 year ago. Lipid results: Lipids have increased. Patient admits that her diet has been very poor. Associated symptoms include shortness of breath. Treatments tried: Patientis taking pravastatin Risk factors for coronary artery disease include family history, dyslipidemia, hypertension, a sedentary lifestyle and post-menopausal. Anxiety Presents for follow-up (Patient has to move and is very anxious about where she is going.) visit. Progression since onset: Increased due to stopping the paroxetine. Symptoms include excessive worry, irritability, nervous/anxious behavior (more anxious recently ) and shortness of breath. Patient reports no decreased concentration, dizziness, palpitations or suicidal ideas. Symptoms occur constantly. The severity of symptoms is moderate. The symptoms are aggravated by medication withdrawal. The quality of sleep is fair. Treatments tried: patient is taking paroxetine. The treatment provided moderate relief. Compliance with prior treatments has been good (usually good. Not sure why she did not renew her paroxetine\). Compliance with medications: Patient does take her paroxetine 40 mg daily. Social History Tobacco Use Smoking status: Never Smoker Smokeless tobacco: Never Used Vaping Use Vaping Use: Never used Substance Use Topics Alcohol use: No Drug use: No Family History Problem Relation Age of Onset Hypertension Father Heart attack Father Hyperlipidemia Brother Hyperlipidemia Sister Heart disease Paternal Grandfather Allergies Allergen Reactions Alendronate GI Intolerance Severe GERD Kagqojf-Grc-Cjm Reductase Inhibitors Zocor [Simvastatin] Latex Rash The following portions of the patient's history were reviewed and updated as appropriate: allergies, current medications, past family history, past medical history, past social history, past surgicalhistory and problem list. Review of Systems Constitutional: Positive for irritability. Negative for activity change and fatigue. Eyes: Negative for visual disturbance. Respiratory: Positive for shortness of breath and wheezing. Patient states that her asthma has increased recently Cardiovascular: Negative for palpitations and leg swelling. Gastrointestinal: Negative for blood in stool, constipation and diarrhea. Genitourinary: Negative for difficulty urinating, flank pain, frequency, hematuria and urgency. Musculoskeletal: Negative for arthralgias and gait problem. Skin: Positive for rash ( Seborrhea controlled). Allergic/Immunologic: Positive for environmental allergies. Neurological: Negative for dizziness. Psychiatric/Behavioral: Negative for agitation, decreased concentration, sleep disturbance and suicidal ideas. The patient is nervous/anxious (more anxious recently ). Objective: BP 118/72 Pulse 67 Temp 98.2 F (36.8 C) Ht 5' 6 Wt 71.7 kg (158 lb) SpO2 97% BMI 25.50kg/m Physical Exam Constitutional: General: She is not in acute distress. Appearance: Normal appearance. Neck: Thyroid: No thyromegaly. Vascular: No carotid bruit. Trachea: No tracheal deviation. Cardiovascular: Rate and Rhythm: Normal rate and regular rhythm. Heart sounds: Normal heart sounds. No murmur heard. Pulmonary: Effort: Pulmonary effort is normal. Breath sounds: Normal breath sounds. No wheezing, rhonchi or rales. Musculoskeletal: General: No swelling. Cervical back: Neck supple. No muscular tenderness. Right lower leg: No edema. Left lower leg: No edema. Lymphadenopathy: Cervical: No cervical adenopathy. Upper Body: Right upper body: No supraclavicular adenopathy. Left upper body: No supraclavicular adenopathy. Skin: Psychiatric: Mood and Affect: Mood and affect normal. For any new medications prescribed today, patient was educated about indications for the medication, how to take the medication and potential side effects of the medications. This note was generated using [employer] voice recognition software in an effort to expedite communication. Please excuse results in grammatical or wording errors. documented in this [id number] History of Present illness Narrative* Adrianna Henning, R.Ph. - 09/05/2020 9:46 AM EDT [employer] prescription claims review completed as part of [facility]'s Medication Therapy Disease Management (MTDM) program. Part of combined scorecard includes HEDIS measurements for STATIN Drug Therapy Adherence. According to [employer], their claims do not include a STATIN. Pravastatin 40 mg verified as current therapy by provider 08/15/20. No intervention needed at this time. documented in this [id number] Instructions* Patient Instructions* Subhash Navas DO - 08/15/2020 2:22 PM EDT [facility] Low Risk Patient Instructions: Your Falls Screening today shows that you are at low risk for falls. To further protect yourself from falls and maintain your independence, we recommend: 1. Read through the brochure, What You Can Do to Prevent Falls (from CDC). 2. Go through the brochure, Check for Safety: A Home Fall Prevention Checklist for Older Adults (from CDC), and make changes as recommended. 3. Join a community falls prevention program: ? Stepping On, a 7-week evidence based program that teaches balance exercises and fall prevention strategies ? Aman Chi for older adults, group exercise that teaches Aman Chi forms that reduce fall risk (weightshifting, postural alignment and control, and coordinated movements of the arms, legs, head, and trunk) ? Matter of Balance, an evidence based program designed to reduce the fear of falling and increase activity levels of older adults OR an exercise class for strength and balance. 4. Take your Vitamin D with or without Calcium, as determined by your healthcare provider. 5. Get your vision and hearing checked annually. Falls At Home Each year, thousands of older Americans fall at home. Many of them are seriously injured, and some are disabled. In 2011, nearly 23,000 people over age 65 and 2.4 million were treated in emergency departments because of falls. Falls are often due to hazards that are easy to overlook but easy to fix. This checklist will help you find and fix those hazards in your home. The checklist asks about hazards found in each room of your home. For each hazard, the checklist tells you how to fix the problem. At the end of the checklist, you ll find other tips for preventing falls. FLOORS: Look at the floor in each room. Q: When you walk through a room, do you have to walk around furniture? A. Ask someone to move the furniture so your path is clear Q: Do you have throw rugs on the floor? A. Remove the rugs or use double-sided tape or a non-slip backing so the rugs won t slip. Q: Are there papers, books, towels, shoes, magazines, boxes, blankets, or other objects on the floor? A.doping supervisor things that are on the floor. Always keep objects off the floor. Q: Do you have to walk over or around wires or cords (like lamp, telephone, or extension cords)? A. Coil or tape cords and wires next to the wall so you can t trip over them. If needed, have an airport electrician put in another outlet. STAIRS AND STEPS: Look at the stairs you use both inside and outside your home. Q: Are there papers, shoes, books, or other objects on the stairs? A. doping supervisor things on the stairs. Always keep objects off stairs. Q: Are some steps broken or uneven? A. Fix loose or uneven steps. Q: Are you missing a light over the stairway? A. Have an airport electrician put in an overhead light at the top and bottom of the stairs. Q: Do you have only one light switch for your stairs (only at the top or at the bottom of the stairs)? A. Have an airport electrician put in a light switch at the top and bottom of the stairs. You can get lightswitches that glow. Q: Has the stairway light bulb burned out? A. Have a friend or family member change the light bulb. Q: Is the carpet on the steps loose or torn? A. Make sure the carpet is firmly attached to every step, or remove the carpet and attach non-slip rubber treads to the stairs. Q: Are the handrails loose or broken? Is there a handrail on only one side of the stairs? A. Fix loose handrails or put in new ones. Make sure handrails are on both sides of the stairs and are as long as the stairs. KITCHEN: Look at your kitchen and eating area. Q: Are the things you use often on high shelves? A. Move items in your cabinets. Keep things you use often on the lower shelves (about waist level). Q: Is your step stool unsteady? A. If you must use a step stool, get one with a bar to hold on to. Never use a chair as a step stool. BATHROOMS: Look at all your bathrooms. Q: Is the tub or shower floor slippery? A. Put a non-slip rubber mat or self-stick strips on the floor of the tub or shower. Q: Do you need some support when you get in and out of the tub or up from the toilet? A. Have grab bars put in next to and inside the tub and next to the toilet. BEDROOMS: Look at all your bedrooms. Q: Is the light near the bed hard to reach? A. Place a lamp close to the bed where it s easy to reach. Q: Is the path from your bed to the bathroom dark? A. Put in a night-light so you can see where you re walking. Some night-lights go on by themselves after dark. Other Things You Can Do to Prevent Falls Do exercises that improve your balance and make your legs stronger. Exercise also helps you feel better and more confident. Have your doctor or pharmacist look at all the medicines you take, even [id number] medicines.Some medicines can make you sleepy or dizzy. Have your eyes checked by an eye doctor at least once a year and update your glasses. Get up slowly after you sit or lie down. Wear shoes both inside and outside the house. Avoid going barefoot or wearing slippers. Improve the lighting in your home. Put in brighter light bulbs. Florescent bulbs are bright and cost less to use. It s safest to have uniform lighting in a room. Add lighting to dark areas. Hang lightweight curtains or shades to reduce glare. [place] a contrasting color on the top edge of all steps so you can see the stairs better. For example, use a light color paint on dark wood. To access this brochure online, please visit the CDC website at http://www.cdc.gov/steadi/pdf/check_for_safety_brochure-a.pdf Chair Rise Exercise What it does: Strengthens the muscles in your thighs & buttocks. Goal: To do this exercise without using your hands as you become stronger. How to do it: 1. Sit toward the front of a sturdy chair with your knees bent & feet flat on the floor shoulder-width apart 2. Rest your hands lightly on the seat on either side of you, keeping your back & neck straight& and chest slightly forward. 3. Breathe in slowly. Lean forward & feel your weight on the front of your feet. 4. Breathe out and slowly stand up, using your hands as little as possible. 5. Pause for a full breath in & out. 6. Breathe in as you slowly sit down. Do not let yourself collapse back down into the chair. Rather, control your lowering as much as possible. 7. Breathe out. Repeat 10-15 times. If this number is too hard for you when you first start practicing this exercise, begin with fewer and work up to this number. Rest for a minute & then do a final set of 10-15. For detailed instructions, please visit the CDC website at http://www.cdc.gov/steadi/pdf/chair_rise_exercise-a.pdf Stepping On is an evidence based program proven to reduce falls in older adults. It is a workshop offered once a week for seven weeks. In a small-group setting, you will learn balance exercises and develop specific knowledge and skills to prevent falls. Older adults who should attend are those who: are at risk of falling who have fallen one or more times lives at home are able to walk without the help of another person Local guest experts provide information on exercise, safety, vision, and medications. Classes are offered at [facility]. To find out specifics about a class, please call [phone]. Aman chi: Moving for Better Balance involves low impact exercise. The 12-week class is offered for three hours per week and is led by a trained aviation maintenance instructor. It is intended for people aged 60 and older. Participants learn and perform a program of eight forms that progress from easy to more difficult. The program can accommodate persons with various physical conditions. Health Benefits of Aman Chi: Moving for Better Balance: Improved social and mental well-being, Improved balance and physical functioning, Improved confidence in conducting daily activities, Reduced risk of falling and sustaining associated injuries, and Maintained independence and improved quality of life. To find a Aman Chi program in your area or additional resources about fall prevention please contact: [facility] Violence and Injury Prevention Program at [phone] or [email or web address].[email or web address] A Matter of Balance: Managing Concerns about Falls is an evidence based program designed to reduce the fear of falling and increase activity levels of older adults. A trained geophysicist leads 8 two-hour sessions for small groups of older adults. The class is intended for people 60 and older who are at risk of falling have a fear of falling or restrict activities who have fallen in the past are interested in improving flexibility, balance, and strength. Participants will learn to view falls as controllable, set goals to increase activity levels, and reduce fall risks at home. Classes are offered in all [address] [place] [address] in [place]. For more information about specific classes near you, please visit http://aging.[place].gov/steadyu/resources/matterofbalance.aspx. documented in this [id number] History of Present illness Narrative* Subhash Navas DO - 08/15/2020 2:00 PM EDT Assessment/Plan: Diagnoses and all orders for this visit: Essential hypertension - metoprolol succinate (TOPROL-XL) 25 MG 24 hr tablet; Take 0.5 (one-half) tablet (12.5 mg total) by mouth daily . - CBC and Differential; Future - Comprehensive Metabolic Panel; Future Mass of subcutaneous tissue of back - Recommended general surgery consult. Patient wants to think about it first. Hyperlipidemia, unspecified hyperlipidemia type - Lipid Panel; Future Irritable bowel syndrome, unspecified type Chronic bilateral low back pain without sciatica Anxiety - PARoxetine (PAXIL) 40 MG tablet; Take 1 (one) tablet (40 mg total) by mouth daily . Asthma, intermittent, uncomplicated Muscle spasm - chlorzoxazone (PARAFON FORTE) 500 mg tablet; Take 1 (one) tablet (500 mg total) by mouth 3 (three) times a day as needed for muscle spasms . At low risk for fall Patient to follow-up in 4 months Proceed pending the results of the lab Subjective: Patient ID: Deangelo Beach is a 80 y.o. female. Mass upper back Patient states she noticed this several months ago. She thinks it has increased in size. Hypertension This is a chronic problem. The current episode started more than 1 year ago. Associated symptoms include anxiety. Pertinent negatives include no palpitations or peripheral edema. Risk factors for coronary artery disease include family history, dyslipidemia, sedentary lifestyle, post-menopausal state and stress. Treatments tried: currently on metoprolol succinate 12.5 mg daily. The current treatment provides significant improvement. There are no compliance problems. Hyperlipidemia This is a chronic problem. The current episode started more than 1 year ago. Treatments tried: Patientis taking pravastatin The current treatment provides significant improvement of lipids. Risk factors for coronary artery disease include family history, dyslipidemia, hypertension, a sedentary lifestyle and post-menopausal. Anxiety Presents for follow-up visit. Progression since onset: Increased due to stopping the paroxetine. Symptoms include excessive worry, irritability and nervous/anxious behavior (Somewhat more anxious recently). Patient reports no decreased concentration, dizziness, palpitations or suicidal ideas. Symptoms occur constantly. The severity of symptoms is moderate. The symptoms are aggravated by medication withdrawal. The quality of sleep is fair. Treatments tried: patient is taking paroxetine. The treatment provided moderate relief. Compliance with prior treatments has been good (usually good. Not sure why she did not renew her paroxetine\). Compliance with medications: Patient does take her paroxetine 40 mg daily. Social History Tobacco Use Smoking status: Never Smoker Smokeless tobacco: Never Used Substance Use Topics Alcohol use: No Drug use: No Family History Problem Relation Age of Onset Hypertension Father Heart attack Father Hyperlipidemia Brother Hyperlipidemia Sister Heart disease Paternal Grandfather Allergies Allergen Reactions Alendronate GI Intolerance Severe GERD Tzacsid-Yih-Nch Reductase Inhibitors Zocor [Simvastatin] Latex Rash The following portions of the patient's history were reviewed and updated as appropriate: allergies, current medications, past family history, past medical history, past social history, past surgicalhistory and problem list. Review of Systems Constitutional: Positive for irritability. Negative for activity change and fatigue. Eyes: Negative for visual disturbance. Cardiovascular: Negative for palpitations and leg swelling. Gastrointestinal: Negative for blood in stool, constipation and diarrhea. Genitourinary: Negative for difficulty urinating, flank pain, frequency, hematuria and urgency. Musculoskeletal: Negative for arthralgias and gait problem. Skin: Positive for rash ( Seborrhea controlled). Neurological: Negative for dizziness. Psychiatric/Behavioral: Negative for agitation, decreased concentration, sleep disturbance and suicidal ideas. The patient is nervous/anxious (Somewhat more anxious recently). Objective: BP 118/72 (BP Location: Right arm, Patient Position: Sitting, BP Cuff Size: Adult) Pulse 82 Temp 98 F (36.7 C) Wt 72.6 kg (160 lb) SpO2 98% BMI 25.82 kg/m Physical Exam Constitutional: General: She is not in acute distress. Appearance: Normal appearance. Neck: Musculoskeletal: Neck supple. No muscular tenderness. Thyroid: No thyromegaly. Vascular: No carotid bruit. Trachea: No tracheal deviation. Cardiovascular: Rate and Rhythm: Normal rate and regular rhythm. Heart sounds: Normal heart sounds. No murmur. Pulmonary: Effort: Pulmonary effort is normal. Breath sounds: Normal breath sounds. No wheezing, rhonchi or rales. Musculoskeletal: General: No swelling. Right lower leg: No edema. Left lower leg: No edema. Lymphadenopathy: Cervical: No cervical adenopathy. Upper Body: Right upper body: No supraclavicular adenopathy. Left upper body: No supraclavicular adenopathy. Skin: Psychiatric: Mood and Affect: Mood and affect normal. For any new medications prescribed today, patient was educated about indications for the medication, how to take the medication and potential side effects of the medications. This note was generated using [employer]ve[employer] voice recognition software in an effort to expedite communication. Please excuse results in grammatical or wording errors. Depression Screening 05/16/2017 01/12/2019 08/15/2020 Little interest or pleasure in doing things - 1 0 Feeling down, depressed, or hopeless - 1 0 PHQ-2 Total Score - 2 0 Trouble falling or staying asleep, or sleeping too much 0 2 0 Feeling tired or having little energy 0 2 0 Poor appetite or overeating 0 0 0 Feeling bad about yourself - or that you are a failure or have let yourself or your family down 0 00 Trouble concentrating on things, such as reading the newspaper or watching television 0 0 0 Moving or speaking so slowly that other people could have noticed. Or the opposite - being so fidgety or restless that you have been moving around a lot more than usual 0 0 0 Thoughts that you would be better off , or of hurting yourself in some way 0 0 0 PHQ-9 Total Score 0 6 0 If you checked off any problems, how difficult have these problems made it for you to do your work,take care of things at home, or get along with other people? Not difficult at all Not difficult at all Not difficult at all * Christine Rangel LPN - 08/15/2020 1:50 PM EDT Pt is here for medicare wellness. Pt will check into vaccines. [facility]* Diagnosis Essential hypertension- Primary Unspecified essential hypertension Mass of subcutaneous tissue of back Hyperlipidemia, unspecified hyperlipidemia type Irritable bowel syndrome, unspecified type Chronic bilateral low back pain without sciatica Anxiety Anxiety state, unspecified Asthma, intermittent, uncomplicated Muscle spasm Spasm of muscle At low risk for fall documented [facility] [place] [facility]* Diagnosis Mass of subcutaneous tissue of back- Primary Muscle spasm Spasm of muscle Anxiety Anxiety state, unspecified Hyperlipidemia, unspecified hyperlipidemia type Essential hypertension Unspecified essential hypertension Asthma, intermittent, uncomplicated [facility] [place] [facility]* Diagnosis Mass of subcutaneous tissue of back documented in this encounter [facility] [place] [facility]* Diagnosis Muscle spasm Spasm of muscle documented in this encounter [facility] [place] [facility]* Diagnosis Mass of subcutaneous tissue of back- Primary [facility]* Diagnosis Allergic asthma, mild intermittent, with acute exacerbation- Primary Asthma, intermittent, uncomplicated Environmental and seasonal allergies documented in this encounter [facility] [place] [facility]* Diagnosis Muscle spasm- Primary Spasm of muscle [facility]* Diagnosis Hyperlipidemia, unspecified hyperlipidemia type Anxiety Anxiety state, unspecified Essential hypertension Unspecified essential hypertension documented in this encounter [facility] [place] [facility]* Diagnosis Asthma, intermittent, uncomplicated- Primary Environmental and seasonal allergies Essential hypertension Unspecified essential hypertension Hyperlipidemia, unspecified hyperlipidemia type Irritable bowel syndrome, unspecified type documented in this encounter [facility] [place] noteNo assessment information availableWChill[facility] Work Phone: Evaluation note* Diagnosis Essential hypertension- Primary Unspecified essential hypertension Hyperlipidemia, unspecified hyperlipidemia type [facility] [place] [facility]* Diagnosis URI, acute- Primary Acute upper respiratory infections of unspecified site documented in this encounter [facility] note* Diagnosis Asthma, intermittent, uncomplicated Environmental and seasonal allergies Hyperlipidemia, unspecified hyperlipidemia type documented in this encounter [facility] note* Diagnosis Essential hypertension Unspecified essential hypertension documented in this encounter [facility] [place] [facility]* Diagnosis Acute right-sided low back pain without sciatica- Primary documented in this encounter [facility] note* Diagnosis Onychomycosis- Primary Dermatophytosis of nail Pain in toe of left foot Pain in limb Pain in toe of right foot Pain in limb documented in this encounter [facility] note* Diagnosis Lumbar spondylosis- Primary Lumbosacral spondylosis without myelopathy Myofascial pain Mylagia and myositis, unspecified [facility] Diagnosis Lumbar spondylosis Lumbosacral spondylosis without myelopathy [facility] [place] [facility]* Diagnosis SOB (shortness of breath)- Primary Shortness of breath Rash Rash and other nonspecific skin eruption Ankle swelling, unspecified laterality [facility] [place] [facility]* Diagnosis Mediastinal mass- Primary Swelling, mass, or lump in chest Other chest pain Mediastinal mass Swelling, mass, or lump in chest Other chest pain documented [facility] [place] [facility]* Diagnosis Mediastinal mass Swelling, mass, or lump in chest Other chest pain [facility] [place] [facility]* Diagnosis Pre-op testing- Primary Preoperative examination, unspecified documented [facility] [place] [facility]* Diagnosis Adenopathy- Primary Enlargement of lymph nodes Bronchiolar disease Other diseases of trachea and bronchus documented [facility] this [facility] [place] [facility]* Diagnosis Hypercholesterolemia- Primary Pure hypercholesterolemia documented [facility] this [facility] [place] [facility]* Diagnosis Encounter for medical examination to establish care- Primary Generalized anxiety disorder Primary hypertension Unspecified essential hypertension Mediastinal mass Swelling, mass, or lump in chest Hypercholesterolemia Pure hypercholesterolemia Chronic low back pain, unspecified back pain laterality, unspecified whether sciatica present Encounter for immunization Need for other specified prophylactic vaccination against single bacterial disease documented [facility] [place] [facility]* Diagnosis 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 History of kidney cancer Personal history of malignant neoplasm of kidney Polycythemia Polycythemia vera documented [facility] this [facility] [place] [facility]* Diagnosis 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 documented [facility] [place] [facility]* Diagnosis 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 documented [facility] [place] [facility]* Diagnosis 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 documented [facility] [place] [facility]* Diagnosis 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 [facility] [place] [facility]* Diagnosis 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 [facility] [place] [facility]* Diagnosis 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 History of kidney cancer Personal history of malignant neoplasm of kidney documented in this encounter [facility] note* Diagnosis History of kidney cancer Personal history of malignant neoplasm of kidney 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 documented in this encounter [facility] note* Diagnosis 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 History of kidney cancer Personal history of malignant neoplasm of kidney [facility] [place] [facility]* Diagnosis Cancer of kidney, 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 Secondary polycythemia Polycythemia, secondary documented [facility] [place] [facility]* Diagnosis Radiotherapy follow-up- Primary Radiotherapy follow-up examination 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 documented in this encounter [facility] note* Diagnosis Generalized anxiety disorder- Primary Mild intermittent asthma without complication Unspecified asthma documented in this encounter [facility] note* Diagnosis Mild intermittent asthma without complication- Primary Unspecified asthma documented in this encounter [facility] note* Diagnosis Headache, unspecified headache type- Primary documented in this encounter [facility] note* Diagnosis Cancer of kidney, 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) documented [facility] [place] [facility]* Diagnosis Preop examination- Primary Preoperative examination, unspecified Cancer of kidney, 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 Denies hospitalization or pneumonia in the last 6 weeks. 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 Mild persistent asthma without complication (HCC) Unspecified asthma documented in this encounter [facility] note* Diagnosis Preop examination- Primary Preoperative examination, unspecified Cancer of kidney, 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) Mild intermittent asthma without complication (HCC) Unspecified asthma Hypercholesterolemia Pure hypercholesterolemia Cancer of kidney, right (HCC)- Primary [facility] [place] [facility]* Diagnosis Preop examination- Primary Preoperative examination, unspecified Cancer of kidney, 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) Mild intermittent asthma without complication (HCC) Unspecified asthma Hypercholesterolemia Pure hypercholesterolemia Medicare annual wellness visit, subsequent- Primary Routine general medical examination at a health care facility Moderate recurrent major depression (HCC) Major depressive disorder, recurrent episode, moderate Generalized anxiety disorder Cancer of kidney, 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 Memory impairment Memory loss documented in [facility] [place] [facility]* Diagnosis Preop examination- Primary Preoperative examination, unspecified Cancer of kidney, 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) Mild intermittent asthma without complication (HCC) Unspecified asthma Hypercholesterolemia Pure hypercholesterolemia Cancer of kidney, right (HCC)- Primary 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) Cognitive impairment Unspecified persistent mental disorders due to conditions classified elsewhere documented in this encounter [facility] note* Diagnosis Preop examination- Primary Preoperative examination, unspecified Cancer of kidney, 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) Mild intermittent asthma without complication (HCC) Unspecified asthma Hypercholesterolemia Pure hypercholesterolemia Encounter for education- Primary Counseling NOS documented in this encounter [facility] note* Diagnosis Preop examination- Primary Preoperative examination, unspecified Cancer of kidney, 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) Mild intermittent asthma without complication (HCC) Unspecified asthma Hypercholesterolemia Pure hypercholesterolemia Encounter for education- Primary Counseling NOS documented in this encounter [facility] note* Diagnosis Preop examination- Primary Preoperative examination, unspecified Cancer of kidney, 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 Hot shower, warm bath and massage to loosen up the muscles in your back. I think this is secondary to muscle spasms in your back. Skelaxin which is a muscle relaxant 1 pill 3 times a day for the next 7 days as needed. It will take several days to start showing a significant difference. Follow-up with a local primary care physician.[facility] Work Phone: Reason for referral (narrative)* Diagnostic Procedure Only (Routine) - Closed Specialty Diagnoses / Procedures Referred By Contac t Referred To Contact XR IMAGING Diagnoses Lumbar spondylosis Procedures XR LUMBAR MOTION 4V AP/LAT/ FLEX/EXT RADEX SPINE LUMBOSACRAL MINIMUM 4 VIEWS Deng Foster MD [address] [place] [address] Xr Imaging [place] [address] Referral ID Status Reason Start Date Expiration Date V isits Requested Visits Authorized [id number] Closed Auto-Generate d Referral 10/24/2023 11/22/2024 1 1 * Physical Therapy (Routine) - Authorized Specialty Diagnoses / Procedures Referred By Contac t Referred To Contact [facility] Diagnoses Lumbar spondylosis Myofascial pain Procedures CONSULT TO PHYSICAL THERAPY PHYSICAL THERAPY EVALUATION HIGH COMPLEX 45 MINS Deng Foster MD [address] [place] [address] [facility] [place] [address] Referral ID Status Reason Start Date Expiration Date Visits Requested Visits Authorized [id number] Authorized Auto-Generat ed Referral 04/15/2023 04/14/2024 1 1 [facility] for referral (narrative)* Outpatient Procedure (Urgent) - New Request Specialty Diagnoses / Procedures Referred By Contac t Referred To Contact [facility] Diagnoses Pre-op testing Procedures ECG COMPLETE ECG ROUTINE ECG W/LEAST 12 LDS W/I&R Mariam Oliver MD [id number] [facility] [place] [address] Referral ID Status Reason Start Date Expiration Date Visits Requested Visits Authorized [id number] New Request Auto-Generat ed Referral 02/18/2024 02/17/2025 1 1 [facility] for visit Narrative* Diagnostic Procedure Only (Routine) - Closed Specialty Diagnoses / Procedures Referred By Contac t Referred To Contact XR IMAGING Diagnoses Lumbar spondylosis Procedures XR LUMBAR MOTION 4V AP/LAT/ FLEX/EXT RADEX SPINE LUMBOSACRAL MINIMUM 4 VIEWS Deng Foster MD [address] [facility] [address] [place] [address] [place] [id number] Referral ID Status Reason Start Date Expiration Date V isits Requested Visits Authorized [id number] Closed Auto-Generate d Referral 10/24/2023 11/22/2024 1 1 [facility] for visit Narrative* Outpatient Procedure (Routine) - Closed Specialty Diagnoses / Procedures Referred By Contac t Referred To Contact Diagnoses Cancer of kidney, 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) Procedures EGD - THERAPEUTIC, EUS, OR TUBE INTERVENTIONS EGD INTRMURAL US NEEDLE ASPIRATE/BIOPSY ESOPHAGS Spencer Velarde, DO [address] [place] [address] Phone: tel: fax: Latrice Reagan MD [address] [place] [address] Phone: tel: fax: Referral ID Status Reason Start Date Expiration Date V isits Requested Visits Authorized [id number] Closed Auto-Generate d Referral 11/05/2024 01/12/2025 1 1 [facility] Assessments Diagnosis Essential hypertension - Myra naranjo Unspecified essential hypertension Hyperlipidemia, unspecified hyperlipidemia type Anxiety Anxiety state, unspecified Chronic bilateral low back p ain without sciatica Osteopenia, unspecified loca tion Menopausal syndrome Symptomatic menopausal or female climacteric states Diagnosis Kidney stone Calculus of kidney Diagnosis Malignant neoplasm of left k idney, except renal pelvis (HCC) Diagnosis Essential hypertension - Myra naranjo Unspecified essential hypertension Hyperlipidemia, unspecified hyperlipidemia type Anxiety Anxiety state, unspecified Chronic bilateral low back p ain without sciatica Irritable bowel syndrome, un specified type Risk for falls Diagnosis Visit for screening mammogra m Diagnosis Restless leg syndrome - Prim patricia Restless legs syndrome (RLS) Diagnosis Menopausal syndrome Symptomatic menopausal or female climacteric states Diagnosis Essential hypertension - Myra naranjo Unspecified essential hypertension Hyperlipidemia, unspecified hyperlipidemia type Abdominal pain, epigastric Medication side effect Diagnosis Essential hypertension - Myra naranjo Unspecified essential hypertension Anxiety Anxiety state, unspecified Hyperlipidemia, unspecified hyperlipidemia type Flu vaccine need Diagnosis Essential hypertension - Myra naranjo Unspecified essential hypertension Hyperlipidemia, unspecified hyperlipidemia type Anxiety Anxiety state, unspecified Left leg pain Pain in soft tissues of limb Chronic bilateral low back p ain without sciatica Flu vaccine need Diagnosis Viral URI with cough- Primary Diagnosis Screening mammogram, encounter for Diagnosis Neck pain- Primary Cervicalgia Essential hypertension Unspecified essential hypertension Hyperlipidemia, unspecified hyperlipidemia type Anxiety Anxiety state, unspecified Diagnosis Diarrhea, unspecified type- Primary Diagnosis Cough- Primary Diarrhea, unspecified type Anxiety Anxiety state, unspecified Diagnosis Diarrhea, unspecified type - Primary Dyspepsia Dyspepsia and other specified disorders of function of stomach Risk for falls Diagnosis Essential hypertension- Primary Unspecified essential hypertension Asthma, intermittent, uncomplicated Anxiety Anxiety state, unspecified Chronic bilateral low back pain without sciatica Hyperlipidemia, unspecified hyperlipidemia type Diagnosis Essential hypertension- Primary Unspecified essential hypertension Hyperlipidemia, unspecified hyperlipidemia type Anxiety Anxiety state, unspecified Seborrhea capitis Diagnosis Diarrhea, unspecified type Irritable bowel syndrome, unspecified type Diagnosis Essential hypertension Unspecified essential hypertension Hyperlipidemia, unspecified hyperlipidemia type Anxiety Anxiety state, unspecified Diagnosis Pre-op exam- Primary Cataract of both eyes, unspecified cataract type Diagnosis Calculus of kidney Diagnosis Neck pain- Primary Cervicalgia Seborrhea capitis At low risk for fall Diagnosis Calculus of kidney Instructions * Patient Instructions - Subhash Navas DO - 05/16/2017 1:36 PM EST STEADI Low Risk Patient Instructions: Your Falls Screening today shows that you are at low risk for falls. To further protect yourself from falls and maintain your independence, we recommend: 1. Read through the brochure, What You Can Do to Prevent Falls (from CDC). 2. Go through the brochure, Check for Safety: A Home Fall Prevention Checklist for Older Adults (from CDC), and make changes as recommended. 3. Join a community falls prevention program: ? Stepping On, a 7-week evidence based program that teaches balance exercises and fall prevention strategies ? Aman Chi for older adults, group exercise that teaches Aman Chi forms that reduce fall risk (weightshifting, postural alignment and control, and coordinated movements of the arms, legs, head, and trunk) ? Matter of Balance, an evidence based program designed to reduce the fear of falling and increase activity levels of older adults OR an exercise class for strength and balance. 4. Take your Vitamin D with or without Calcium, as determined by your healthcare provider. 5. Get your vision and hearing checked annually. Falls At Home Each year, thousands of older Americans fall at home. Many of them are seriously injured, and some are disabled. In 2011, nearly 23,000 people over age 65 and 2.4 million were treated in emergency departments because of falls. Falls are often due to hazards that are easy to overlook but easy to fix. This checklist will help you find and fix those hazards in your home. The checklist asks about hazards found in each room of your home. For each hazard, the checklist tells you how to fix the problem. At the end of the checklist, you ll find other tips for preventing falls. FLOORS: Look at the floor in each room. Q: When you walk through a room, do you have to walk around furniture? A. Ask someone to move the furniture so your path is clear Q: Do you have throw rugs on the floor? A. Remove the rugs or use double-sided tape or a non-slip backing so the rugs won t slip. Q: Are there papers, books, towels, shoes, magazines, boxes, blankets, or other objects on the floor? A.doping supervisor things that are on the floor. Always keep objects off the floor. Q: Do you have to walk over or around wires or cords (like lamp, telephone, or extension cords)? A. Coil or tape cords and wires next to the wall so you can t trip over them. If needed, have an airport electrician put in another outlet. STAIRS AND STEPS: Look at the stairs you use both inside and outside your home. Q: Are there papers, shoes, books, or other objects on the stairs? A. doping supervisor things on the stairs. Always keep objects off stairs. Q: Are some steps broken or uneven? A. Fix loose or uneven steps. Q: Are you missing a light over the stairway? A. Have an airport electrician put in an overhead light at the top and bottom of the stairs. Q: Do you have only one light switch for your stairs (only at the top or at the bottom of the stairs)? A. Have an airport electrician put in a light switch at the top and bottom of the stairs. You can get lightswitches that glow. Q: Has the stairway light bulb burned out? A. Have a friend or family member change the light bulb. Q: Is the carpet on the steps loose or torn? A. Make sure the carpet is firmly attached to every step, or remove the carpet and attach non-slip rubber treads to the stairs. Q: Are the handrails loose or broken? Is there a handrail on only one side of the stairs? A. Fix loose handrails or put in new ones. Make sure handrails are on both sides of the stairs and are as long as the stairs. KITCHEN: Look at your kitchen and eating area. Q: Are the things you use often on high shelves? A. Move items in your cabinets. Keep things you use often on the lower shelves (about waist level). Q: Is your step stool unsteady? A. If you must use a step stool, get one with a bar to hold on to. Never use a chair as a step stool. BATHROOMS: Look at all your bathrooms. Q: Is the tub or shower floor slippery? A. Put a non-slip rubber mat or self-stick strips on the floor of the tub or shower. Q: Do you need some support when you get in and out of the tub or up from the toilet? A. Have grab bars put in next to and inside the tub and next to the toilet. BEDROOMS: Look at all your bedrooms. Q: Is the light near the bed hard to reach? A. Place a lamp close to the bed where it s easy to reach. Q: Is the path from your bed to the bathroom dark? A. Put in a night-light so you can see where you re walking. Some night-lights go on by themselves after dark. Other Things You Can Do to Prevent Falls Do exercises that improve your balance and make your legs stronger. Exercise also helps you feel better and more confident. Have your doctor or pharmacist look at all the medicines you take, even cimp-wtd-ppcoofc medicines.Some medicines can make you sleepy or dizzy. Have your eyes checked by an eye doctor at least once a year and update your glasses. Get up slowly after you sit or lie down. Wear shoes both inside and outside the house. Avoid going barefoot or wearing slippers. Improve the lighting in your home. Put in brighter light bulbs. Florescent bulbs are bright and cost less to use. It s safest to have uniform lighting in a room. Add lighting to dark areas. Hang lightweight curtains or shades to reduce glare. [place] a contrasting color on the top edge of all steps so you can see the stairs better. For example, use a light color paint on dark wood. To access this brochure online, please visit the CDC website at http://www.cdc.gov/steadi/pdf/check_for_safety_brochure-a.pdf Chair Rise Exercise What it does: Strengthens the muscles in your thighs & buttocks. Goal: To do this exercise without using your hands as you become stronger. How to do it: 1. Sit toward the front of a sturdy chair with your knees bent & feet flat on the floor shoulder-width apart 2. Rest your hands lightly on the seat on either side of you, keeping your back & neck straight& and chest slightly forward. 3. Breathe in slowly. Lean forward & feel your weight on the front of your feet. 4. Breathe out and slowly stand up, using your hands as little as possible. 5. Pause for a full breath in & out. 6. Breathe in as you slowly sit down. Do not let yourself collapse back down into the chair. Rather, control your lowering as much as possible. 7. Breathe out. Repeat 10-15 times. If this number is too hard for you when you first start practicing this exercise, begin with fewer and work up to this number. Rest for a minute & then do a final set of 10-15. For detailed instructions, please visit the CDC website at http://www.cdc.gov/steadi/pdf/chair_rise_exercise-a.pdf Stepping On is an evidence based program proven to reduce falls in older adults. It is a workshop offered once a week for seven weeks. In a small-group setting, you will learn balance exercises and develop specific knowledge and skills to prevent falls. Older adults who should attend are those who: are at risk of falling who have fallen one or more times lives at home are able to walk without the help of another person Local guest experts provide information on exercise, safety, vision, and medications. Classes are offered at [facility]. To find out specifics about a class, please call [phone]. Aman chi: Moving for Better Balance involves low impact exercise. The 12-week class is offered for three hours per week and is led by a trained aviation maintenance instructor. It is intended for people aged 60 and older. Participants learn and perform a program of eight forms that progress from easy to more difficult. The program can accommodate persons with various physical conditions. Health Benefits of Aman Chi: Moving for Better Balance: Improved social and mental well-being, Improved balance and physical functioning, Improved confidence in conducting daily activities, Reduced risk of falling and sustaining associated injuries, and Maintained independence and improved quality of life. To find a Aman Chi program in your area or additional resources about fall prevention please contact: [facility] Violence and Injury Prevention Program at [phone] or [email or web address].[place].gov A Matter of Balance: Managing Concerns about Falls is an evidence based program designed to reduce the fear of falling and increase activity levels of older adults. A trained geophysicist leads 8 two-hour sessions for small groups of older adults. The class is intended for people 60 and older who are at risk of falling have a fear of falling or restrict activities who have fallen in the past are interested in improving flexibility, balance, and strength. Participants will learn to view falls as controllable, set goals to increase activity levels, and reduce fall risks at home. Classes are offered in all [address] [place] [address] in [place]. For more information about specific classes near you, please visit http://aging.[place].gov/steadyu/resources/matterofbalance.aspx. in this encounter* Patient Instructions - Janey Conrad PA-C - 02/14/2017 3:31 PM EDT Take prescribed medication(s) as directed. Follow up with your PCP if no improvement in 7-10 days for a recheck, sooner if symptoms worsen before then. Restless Legs Syndrome: Care Instructions Your Care Instructions Restless legs syndrome is a common nervous system problem. People with this syndrome feel a creeping, achy, or unpleasant feeling in the legs and an overpowering urge to move them. It often occurs inthe evening and at night and can lead to sleep problems and tiredness. Your doctor may suggest doing a study of your sleep patterns to figure out what is happening when you try to sleep. Many people get relief from symptoms when they get regular exercise, eat well, and avoid caffeine, alcohol, and tobacco. Follow-up care is a juárez part of your treatment and safety. Be sure to make and go to all appointments, and call your doctor if you are having problems. It's also a good idea to know your test resultsand keep a list of the medicines you take. How can you care for yourself at home? Take your medicines exactly as prescribed. Call your doctor if you think you are having a problem with your medicine. Try bathing in hot or cold water. Applying a heating pad or ice bag to your legs may also help symptoms. Stretch and massage your legs before bed or when discomfort begins. Get some exercise for at least 30 minutes a day on most days of the week. Stop exercising at least 3 hours before bedtime. Try to plan for situations where you will need to remain seated for long stretches. For example, ifyou are traveling by car, plan some stops so you can get out and walk around. Tell your doctor about any medicines you are taking. This includes all gmwy-jzg-ogdimzr, prescription, and herbal medicines. Some medicines, such as antidepressants, antihistamines, and cold and sinus medicines, can make your symptoms worse. Avoid caffeine products, such as coffee, tea, cola, and chocolate. Caffeine can interrupt your sleep and stimulate you. Do not smoke. Nicotine can make restless legs worse. If you need help quitting, talk to your doctorabout stop-smoking programs and medicines. These can increase your chances of quitting for good. Do not drink alcohol late in the evening. Take steps to help you sleep better Get plenty of sunlight in the outdoors, particularly later in the afternoon. Use the evening hours for settling down. Avoid activities that challenge you in the hours before bedtime. Eat meals at regular times, and do not snack before bedtime. Keep your bedroom quiet, dark, and cool. Try using a sleep mask and earplugs to help you sleep. Limit how much you drink at night to reduce your need to get up to urinate. But do not go to bed thirsty. Run a fan or other steady white noise during the night if noises wake you up. [place] the bed for sleeping and sex. Do your reading or TV watching in another room. Once you are in bed, relax from head to toe, and guide your mind to pleasant thoughts. Do not stay in bed longer than 8 hours, and try to avoid naps. If your symptoms usually improve around 4 a.m. to 6 a.m., try going to bed later than usual or allowing extra time for sleeping in to help you get the rest you need. When should you call for help? Watch closely for changes in your health, and be sure to contact your doctor if: You are still not getting enough sleep. Your symptoms become more severe or happen more often. Where can you learn more? Log into your personal health record on [email or web address].Joonto and enter X429 in the Education box to learn more about Restless Legs Syndrome: Care Instructions. Current as of: January 27, 2016 Content Version: 11.2 4811-2204 [employer]. Care instructions adapted under license by your healthcare professional. If you have questions about a medical condition or this instruction, always ask your healthcare professional. [employer] disclaims any warranty or liability for your use of this information. in this encounter* Patient Instructions - Subhash Navas DO - 01/31/2017 4:03 PM EDT Iliotibial Band Syndrome: Exercises Your Care Instructions Here are some examples of typical rehabilitation exercises for your condition. Start each exercise slowly. Ease off the exercise if you start to have pain. Your doctor or physical therapist will tell you when you can start these exercises and which ones will work best for you. How to do the exercises Iliotibial band stretch 1. Lean sideways against a wall. If you are not steady on your feet, hold on to a chair or counter. 2. Stand on the leg with the affected hip, with that leg close to the wall. Then cross your other leg in front of it. 3. Let your affected hip drop out to the side of your body and against the wall. Then lean away from your affected hip until you feel a stretch. 4. Hold the stretch for 15 to 30 seconds. 5. Repeat 2 to 4 times. Piriformis stretch 1. Lie on your back with your legs straight. 2. Lift your affected leg and bend your knee. With your opposite hand, reach across your body, and then gently pull your knee toward your opposite shoulder. 3. Hold the stretch for 15 to 30 seconds. 4. Repeat 2 to 4 times. Hamstring wall stretch 1. Lie on your back in a doorway, with your good leg through the open door. 2. Slide your affected leg up the wall to straighten your knee. You should feel a gentle stretch down the back of your leg. Do not arch your back. Do not bend either knee. Keep one heel touching the floor and the other heel touching the wall. Do not point your toes. 3. Hold the stretch for at least 1 minute to begin. Then try to lengthen the time you hold the stretch to as long as 6 minutes. 4. Repeat 2 to 4 times. If you do not have a place to do this exercise in a doorway, there is another way to do it: 1. Lie on your back, and bend the knee of your affected leg. 2. Loop a towel under the ball and toes of that foot, and hold the ends of the towel in your hands. 3. Straighten your knee, and slowly pull back on the towel. You should feel a gentle stretch down the back of your leg. 4. Hold the stretch for 15 to 30 seconds. Or even better, hold the stretch for 1 minute if you can. 5. Repeat 2 to 4 times. Follow-up care is a juárez part of your treatment and safety. Be sure to make and go to all appointments, and call your doctor if you are having problems. It's also a good idea to know your test resultsand keep a list of the medicines you take. Where can you learn more? Log into your personal health record on [email or web address] and enter P252 in the Education box to learn more about Iliotibial Band Syndrome: Exercises. Current as of: September 05, 2015 Content Version: 11.2 9741-6862 [employer]. Care instructions adapted under license by your healthcare professional. If you have questions about a medical condition or this instruction, always ask your healthcare professional. [employer] disclaims any warranty or liability for your use of this information. Quadricep Muscle Strain: Rehab Exercises Your Care Instructions Here are some examples of typical rehabilitation exercises for your condition. Start each exercise slowly. Ease off the exercise if you start to have pain. Your doctor or physical therapist will tell you when you can start these exercises and which ones will work best for you. How to do the exercises Standing quadriceps stretch 6. If you are not steady on your feet, hold on to a chair, counter, or wall. 7. Bend the knee of the leg you want to stretch, and reach behind you to grab the front of your foot or ankle with the hand on the same side. For example, if you are stretching your right leg, use your right hand. 8. Keeping your knees next to each other, pull your foot toward your buttock until you feel a gentle stretch across the front of your hip and down the front of your thigh. Your knee should be pointeddirectly to the ground, and not out to the side. 9. Hold the stretch for at least 15 to 30 seconds. 10. Repeat 2 to 4 times. Quadricep and hip flexor stretch (lying on side) 5. Lie on your side with your good leg flat on the floor and your hand supporting your head. 6. Bend your top leg, and reach behind you to grab the front of that foot or ankle with your other hand. 7. Stretch your leg back by pulling your foot toward your buttock. You will feel the stretch in thefront of your thigh. If this causes stress on your knee, do not do this stretch. 8. Hold the stretch for at least 15 to 30 seconds. 9. Repeat 2 to 4 times. Hamstring stretch (lying down) 1. Lie flat on your back with your legs straight. If you feel discomfort in your back, place a small towel roll under your lower back. 2. Holding the back of your affected leg for support, lift your leg straight up and toward your body until you feel a stretch at the back of your thigh. 3. Hold the stretch for at least 30 seconds. 4. Repeat 2 to 4 times. Follow-up care is a juárez part of your treatment and safety. Be sure to make and go to all appointments, and call your doctor if you are having problems. It's also a good idea to know your test resultsand keep a list of the medicines you take. Where can you learn more? Log into your personal health record on [email or web address] and enter C928 in the Education box to learn more about Quadricep Muscle Strain: Rehab Exercises. Current as of: September 05, 2015 Content Version: 11.2 1427-3961 [employer]. Care instructions adapted under license by your healthcare professional. If you have questions about a medical condition or this instruction, always ask your healthcare professional. [employer] disclaims any warranty or liability for your use of this information. Quadricep Muscle Strain: Rehab Exercises Your Care Instructions Here are some examples of typical rehabilitation exercises for your condition. Start each exercise slowly. Ease off the exercise if you start to have pain. Your doctor or physical therapist will tell you when you can start these exercises and which ones will work best for you. How to do the exercises Standing quadriceps stretch 11. If you are not steady on your feet, hold on to a chair, counter, or wall. 12. Bend the knee of the leg you want to stretch, and reach behind you to grab the front of your foot or ankle with the hand on the same side. For example, if you are stretching your right leg, use your right hand. 13. Keeping your knees next to each other, pull your foot toward your buttock until you feel a gentle stretch across the front of your hip and down the front of your thigh. Your knee should be pointed directly to the ground, and not out to the side. 14. Hold the stretch for at least 15 to 30 seconds. 15. Repeat 2 to 4 times. Quadricep and hip flexor stretch (lying on side) 10. Lie on your side with your good leg flat on the floor and your hand supporting your head. 11. Bend your top leg, and reach behind you to grab the front of that foot or ankle with your otherhand. 12. Stretch your leg back by pulling your foot toward your buttock. You will feel the stretch in the front of your thigh. If this causes stress on your knee, do not do this stretch. 13. Hold the stretch for at least 15 to 30 seconds. 14. Repeat 2 to 4 times. Hamstring stretch (lying down) 5. Lie flat on your back with your legs straight. If you feel discomfort in your back, place a small towel roll under your lower back. 6. Holding the back of your affected leg for support, lift your leg straight up and toward your body until you feel a stretch at the back of your thigh. 7. Hold the stretch for at least 30 seconds. 8. Repeat 2 to 4 times. Follow-up care is a juárez part of your treatment and safety. Be sure to make and go to all appointments, and call your doctor if you are having problems. It's also a good idea to know your test resultsand keep a list of the medicines you take. Where can you learn more? Log into your personal health record on [email or web address] and enter C928 in the Education box to learn more about Quadricep Muscle Strain: Rehab Exercises. Current as of: September 05, 2015 Content Version: 11.2 [id number] [employer]. Care instructions adapted under license by your healthcare professional. If you have questions about a medical condition or this instruction, always ask your healthcare professional. [employer] disclaims any warranty or liability for your use of this information. in this encounter* Patient Instructions* Subhash Navas, - 05/26/2018 5:12 PM EST Neck: Exercises Your Care Instructions Here are some examples of typical rehabilitation exercises for your condition. Start each exercise slowly. Ease off the exercise if you start to have pain. Your doctor or physical therapist will tell you when you can start these exercises and which ones will work best for you. How to do the exercises Neck stretch 1. This stretch works best if you keep your shoulder down as you lean away from it. To help you remember to do this, start by relaxing your shoulders and lightly holding on to your thighs or your chair. 2. Tilt your head toward your shoulder and hold for 15 to 30 seconds. Let the weight of your head stretch your muscles. 3. If you would like a little added stretch, use your hand to gently and steadily pull your head toward your shoulder. For example, keeping your right shoulder down, lean your head to the left. 4. Repeat 2 to 4 times toward each shoulder. Diagonal neck stretch 1. Turn your head slightly toward the direction you will be stretching, and tilt your head diagonally toward your chest and hold for 15 to 30 seconds. 2. If you would like a little added stretch, use your hand to gently and steadily pull your head forward on the diagonal. 3. Repeat 2 to 4 times toward each side. Dorsal glide stretch 1. Sit or stand tall and look straight ahead. 2. Slowly tuck your chin as you glide your head backward over your body 3. Hold for a count of 6, and then relax for up to 10 seconds. 4. Repeat 8 to 12 times. Chest and shoulder stretch 1. Sit or stand tall and glide your head backward as in the dorsal glide stretch. 2. Raise both arms so that your hands are next to your ears. 3. Take a deep breath, and as you breathe out, lower your elbows down and behind your back. You will feel your shoulder blades slide down and together, and at the same time you will feel a stretch across your chest and the front of your shoulders. 4. Hold for about 6 seconds, and then relax for up to 10 seconds. 5. Repeat 8 to 12 times. Strengthening: Hands on head 1. Move your head backward, forward, and side to side against gentle pressure from your hands, holding each position for about 6 seconds. 2. Repeat 8 to 12 times. Follow-up care is a juárez part of your treatment and safety. Be sure to make and go to all appointments, and call your doctor if you are having problems. It's also a good idea to know your test resultsand keep a list of the medicines you take. Where can you learn more? Log into your personal health record on [email or web address] and enter P975 in the Education box to learn more about Neck: Exercises. Current as of: January 02, 2018 Content Version: 11.9 [id number] [employer]. Care instructions adapted under license by your healthcare professional. If you have questions about a medical condition or this instruction, always ask your healthcare professional. [employer] disclaims any warranty or liability for your use of this information. Neck Arthritis: Exercises Your Care Instructions Here are some examples of typical rehabilitation exercises for your condition. Start each exercise slowly. Ease off the exercise if you start to have pain. Your doctor or physical therapist will tell you when you can start these exercises and which ones will work best for you. How to do the exercises Neck stretches to the side 1. This stretch works best if you keep your shoulder down as you lean away from it. To help you remember to do this, start by relaxing your shoulders and lightly holding on to your thighs or your chair. 2. Tilt your head toward your shoulder and hold for 15 to 30 seconds. Let the weight of your head stretch your muscles. 3. Repeat 2 to 4 times toward each shoulder. Chin tuck 1. Lie on the floor with a rolled-up towel under your neck. Your head should be touching the floor. 2. Slowly bring your chin toward your chest. 3. Hold for a count of 6, and then relax for up to 10 seconds. 4. Repeat 8 to 12 times. Active cervical rotation 1. Sit in a firm chair, or stand up straight. 2. Keeping your chin level, turn your head to the right, and hold for 15 to 30 seconds. 3. Turn your head to the left and hold for 15 to 30 seconds. 4. Repeat 2 to 4 times to each side. Shoulder blade squeeze 1. While standing, squeeze your shoulder blades together. 2. Do not raise your shoulders up as you are squeezing. 3. Hold for 6 seconds. 4. Repeat 8 to 12 times. Shoulder rolls 1. Sit comfortably with your feet shoulder-width apart. You can also do this exercise standing up. 2. Roll your shoulders up, then back, and then down in a smooth, circular motion. 3. Repeat 2 to 4 times. Follow-up care is a juárez part of your treatment and safety. Be sure to make and go to all appointments, and call your doctor if you are having problems. It's also a good idea to know your test resultsand keep a list of the medicines you take. Where can you learn more? Log into your personal health record on [email or web address] and enter V867 in the Education box to learn more about Neck Arthritis: Exercises. Current as of: January 02, 2018 Content Version: 11.9 4417-2194 [employer]. Care instructions adapted under license by your healthcare professional. If you have questions about a medical condition or this instruction, always ask your healthcare professional. [employer] disclaims any warranty or liability for your use of this information. in this encounter* Patient Instructions - Subhash Navas DO - 12/03/2016 1:46 PM EDT [facility] Low Risk Patient Instructions: Your Falls Screening today shows that you are at low risk for falls. To further protect yourself from falls and maintain your independence, we recommend: 1. Read through the brochure, What You Can Do to Prevent Falls (from [facility]). 2. Go through the brochure, Check for Safety: A Home Fall Prevention Checklist for Older Adults (from [facility]), and make changes as recommended. 3. Join a community falls prevention program: ? Stepping On, a 7-week evidence based program that teaches balance exercises and fall prevention strategies ? Aman Chi for older adults, group exercise that teaches Aman Chi forms that reduce fall risk (weightshifting, postural alignment and control, and coordinated movements of the arms, legs, head, and trunk) ? Matter of Balance, an evidence based program designed to reduce the fear of falling and increase activity levels of older adults OR an exercise class for strength and balance. 4. Take your Vitamin D with or without Calcium, as determined by your healthcare provider. 5. Get your vision and hearing checked annually. Falls At Home Each year, thousands of older Americans fall at home. Many of them are seriously injured, and some are disabled. In 2011, nearly 23,000 people over age 65 and 2.4 million were treated in emergency departments because of falls. Falls are often due to hazards that are easy to overlook but easy to fix. This checklist will help you find and fix those hazards in your home. The checklist asks about hazards found in each room of your home. For each hazard, the checklist tells you how to fix the problem. At the end of the checklist, you ll find other tips for preventing falls. FLOORS: Look at the floor in each room. Q: When you walk through a room, do you have to walk around furniture? A. Ask someone to move the furniture so your path is clear Q: Do you have throw rugs on the floor? A. Remove the rugs or use double-sided tape or a non-slip backing so the rugs won t slip. Q: Are there papers, books, towels, shoes, magazines, boxes, blankets, or other objects on the floor? A.doping supervisor things that are on the floor. Always keep objects off the floor. Q: Do you have to walk over or around wires or cords (like lamp, telephone, or extension cords)? A. Coil or tape cords and wires next to the wall so you can t trip over them. If needed, have an airport electrician put in another outlet. STAIRS AND STEPS: Look at the stairs you use both inside and outside your home. Q: Are there papers, shoes, books, or other objects on the stairs? A. doping supervisor things on the stairs. Always keep objects off stairs. Q: Are some steps broken or uneven? A. Fix loose or uneven steps. Q: Are you missing a light over the stairway? A. Have an airport electrician put in an overhead light at the top and bottom of the stairs. Q: Do you have only one light switch for your stairs (only at the top or at the bottom of the stairs)? A. Have an airport electrician put in a light switch at the top and bottom of the stairs. You can get lightswitches that glow. Q: Has the stairway light bulb burned out? A. Have a friend or family member change the light bulb. Q: Is the carpet on the steps loose or torn? A. Make sure the carpet is firmly attached to every step, or remove the carpet and attach non-slip rubber treads to the stairs. Q: Are the handrails loose or broken? Is there a handrail on only one side of the stairs? A. Fix loose handrails or put in new ones. Make sure handrails are on both sides of the stairs and are as long as the stairs. KITCHEN: Look at your kitchen and eating area. Q: Are the things you use often on high shelves? A. Move items in your cabinets. Keep things you use often on the lower shelves (about waist level). Q: Is your step stool unsteady? A. If you must use a step stool, get one with a bar to hold on to. Never use a chair as a step stool. BATHROOMS: Look at all your bathrooms. Q: Is the tub or shower floor slippery? A. Put a non-slip rubber mat or self-stick strips on the floor of the tub or shower. Q: Do you need some support when you get in and out of the tub or up from the toilet? A. Have grab bars put in next to and inside the tub and next to the toilet. BEDROOMS: Look at all your bedrooms. Q: Is the light near the bed hard to reach? A. Place a lamp close to the bed where it s easy to reach. Q: Is the path from your bed to the bathroom dark? A. Put in a night-light so you can see where you re walking. Some night-lights go on by themselves after dark. Other Things You Can Do to Prevent Falls Do exercises that improve your balance and make your legs stronger. Exercise also helps you feel better and more confident. Have your doctor or pharmacist look at all the medicines you take, even ythy-[id number]-[id number] medicines.Some medicines can make you sleepy or dizzy. Have your eyes checked by an eye doctor at least once a year and update your glasses. Get up slowly after you sit or lie down. Wear shoes both inside and outside the house. Avoid going barefoot or wearing slippers. Improve the lighting in your home. Put in brighter light bulbs. Florescent bulbs are bright and cost less to use. It s safest to have uniform lighting in a room. Add lighting to dark areas. Hang lightweight curtains or shades to reduce glare. [place] a contrasting color on the top edge of all steps so you can see the stairs better. For example, use a light color paint on dark wood. To access this brochure online, please visit the CDC website at http://www.cdc.gov/steadi/pdf/check_for_safety_brochure-a.pdf Chair Rise Exercise What it does: Strengthens the muscles in your thighs & buttocks. Goal: To do this exercise without using your hands as you become stronger. How to do it: 1. Sit toward the front of a sturdy chair with your knees bent & feet flat on the floor shoulder-width apart 2. Rest your hands lightly on the seat on either side of you, keeping your back & neck straight& and chest slightly forward. 3. Breathe in slowly. Lean forward & feel your weight on the front of your feet. 4. Breathe out and slowly stand up, using your hands as little as possible. 5. Pause for a full breath in & out. 6. Breathe in as you slowly sit down. Do not let yourself collapse back down into the chair. Rather, control your lowering as much as possible. 7. Breathe out. Repeat 10-15 times. If this number is too hard for you when you first start practicing this exercise, begin with fewer and work up to this number. Rest for a minute & then do a final set of 10-15. For detailed instructions, please visit the CDC website at http://www.cdc.gov/steadi/pdf/chair_rise_exercise-a.pdf Stepping On is an evidence based program proven to reduce falls in older adults. It is a workshop offered once a week for seven weeks. In a small-group setting, you will learn balance exercises and develop specific knowledge and skills to prevent falls. Older adults who should attend are those who: are at risk of falling who have fallen one or more times lives at home are able to walk without the help of another person Local guest experts provide information on exercise, safety, vision, and medications. Classes are offered at [facility]. To find out specifics about a class, please call [phone]. Aman chi: Moving for Better Balance involves low impact exercise. The 12-week class is offered for three hours per week and is led by a trained aviation maintenance instructor. It is intended for people aged 60 and older. Participants learn and perform a program of eight forms that progress from easy to more difficult. The program can accommodate persons with various physical conditions. Health Benefits of Aman Chi: Moving for Better Balance: Improved social and mental well-being, Improved balance and physical functioning, Improved confidence in conducting daily activities, Reduced risk of falling and sustaining associated injuries, and Maintained independence and improved quality of life. To find a Aman Chi program in your area or additional resources about fall prevention please contact: [facility] Violence and Injury Prevention Program at [phone] or [email or web address].[email or web address] A Matter of Balance: Managing Concerns about Falls is an evidence based program designed to reduce the fear of falling and increase activity levels of older adults. A trained geophysicist leads 8 two-hour sessions for small groups of older adults. The class is intended for people 60 and older who are at risk of falling have a fear of falling or restrict activities who have fallen in the past are interested in improving flexibility, balance, and strength. Participants will learn to view falls as controllable, set goals to increase activity levels, and reduce fall risks at home. Classes are offered in all [address] [place] [address] in [place]. For more information about specific classes near you, please visit http://aging.[place].gov/steadyu/resources/matterofbalance.aspx. in this encounter* Patient Instructions* MaceySubhash barrera, - 12/10/2018 11:06 AM EDT [facility] Low Risk Patient Instructions: Your Falls Screening today shows that you are at low risk for falls. To further protect yourself from falls and maintain your independence, we recommend: 1. Read through the brochure, What You Can Do to Prevent Falls (from [facility]). 2. Go through the brochure, Check for Safety: A Home Fall Prevention Checklist for Older Adults (from [facility]), and make changes as recommended. 3. Join a community falls prevention program: ? Stepping On, a 7-week evidence based program that teaches balance exercises and fall prevention strategies ? Aman Chi for older adults, group exercise that teaches Aman Chi forms that reduce fall risk (weightshifting, postural alignment and control, and coordinated movements of the arms, legs, head, and trunk) ? Matter of Balance, an evidence based program designed to reduce the fear of falling and increase activity levels of older adults OR an exercise class for strength and balance. 4. Take your Vitamin D with or without Calcium, as determined by your healthcare provider. 5. Get your vision and hearing checked annually. Falls At Home Each year, thousands of older Americans fall at home. Many of them are seriously injured, and some are disabled. In 2011, nearly 23,000 people over age 65 and 2.4 million were treated in emergency departments because of falls. Falls are often due to hazards that are easy to overlook but easy to fix. This checklist will help you find and fix those hazards in your home. The checklist asks about hazards found in each room of your home. For each hazard, the checklist tells you how to fix the problem. At the end of the checklist, you ll find other tips for preventing falls. FLOORS: Look at the floor in each room. Q: When you walk through a room, do you have to walk around furniture? A. Ask someone to move the furniture so your path is clear Q: Do you have throw rugs on the floor? A. Remove the rugs or use double-sided tape or a non-slip backing so the rugs won t slip. Q: Are there papers, books, towels, shoes, magazines, boxes, blankets, or other objects on the floor? A.doping supervisor things that are on the floor. Always keep objects off the floor. Q: Do you have to walk over or around wires or cords (like lamp, telephone, or extension cords)? A. Coil or tape cords and wires next to the wall so you can t trip over them. If needed, have an airport electrician put in another outlet. STAIRS AND STEPS: Look at the stairs you use both inside and outside your home. Q: Are there papers, shoes, books, or other objects on the stairs? A. doping supervisor things on the stairs. Always keep objects off stairs. Q: Are some steps broken or uneven? A. Fix loose or uneven steps. Q: Are you missing a light over the stairway? A. Have an airport electrician put in an overhead light at the top and bottom of the stairs. Q: Do you have only one light switch for your stairs (only at the top or at the bottom of the stairs)? A. Have an airport electrician put in a light switch at the top and bottom of the stairs. You can get lightswitches that glow. Q: Has the stairway light bulb burned out? A. Have a friend or family member change the light bulb. Q: Is the carpet on the steps loose or torn? A. Make sure the carpet is firmly attached to every step, or remove the carpet and attach non-slip rubber treads to the stairs. Q: Are the handrails loose or broken? Is there a handrail on only one side of the stairs? A. Fix loose handrails or put in new ones. Make sure handrails are on both sides of the stairs and are as long as the stairs. KITCHEN: Look at your kitchen and eating area. Q: Are the things you use often on high shelves? A. Move items in your cabinets. Keep things you use often on the lower shelves (about waist level). Q: Is your step stool unsteady? A. If you must use a step stool, get one with a bar to hold on to. Never use a chair as a step stool. BATHROOMS: Look at all your bathrooms. Q: Is the tub or shower floor slippery? A. Put a non-slip rubber mat or self-stick strips on the floor of the tub or shower. Q: Do you need some support when you get in and out of the tub or up from the toilet? A. Have grab bars put in next to and inside the tub and next to the toilet. BEDROOMS: Look at all your bedrooms. Q: Is the light near the bed hard to reach? A. Place a lamp close to the bed where it s easy to reach. Q: Is the path from your bed to the bathroom dark? A. Put in a night-light so you can see where you re walking. Some night-lights go on by themselves after dark. Other Things You Can Do to Prevent Falls Do exercises that improve your balance and make your legs stronger. Exercise also helps you feel better and more confident. Have your doctor or pharmacist look at all the medicines you take, even xyrg-prj-[id number] medicines.Some medicines can make you sleepy or dizzy. Have your eyes checked by an eye doctor at least once a year and update your glasses. Get up slowly after you sit or lie down. Wear shoes both inside and outside the house. Avoid going barefoot or wearing slippers. Improve the lighting in your home. Put in brighter light bulbs. Florescent bulbs are bright and cost less to use. It s safest to have uniform lighting in a room. Add lighting to dark areas. Hang lightweight curtains or shades to reduce glare. [place] a contrasting color on the top edge of all steps so you can see the stairs better. For example, use a light color paint on dark wood. To access this brochure online, please visit the CDC website at http://www.cdc.gov/steadi/pdf/check_for_safety_brochure-a.pdf Chair Rise Exercise What it does: Strengthens the muscles in your thighs & buttocks. Goal: To do this exercise without using your hands as you become stronger. How to do it: 1. Sit toward the front of a sturdy chair with your knees bent & feet flat on the floor shoulder-width apart 2. Rest your hands lightly on the seat on either side of you, keeping your back & neck straight& and chest slightly forward. 3. Breathe in slowly. Lean forward & feel your weight on the front of your feet. 4. Breathe out and slowly stand up, using your hands as little as possible. 5. Pause for a full breath in & out. 6. Breathe in as you slowly sit down. Do not let yourself collapse back down into the chair. Rather, control your lowering as much as possible. 7. Breathe out. Repeat 10-15 times. If this number is too hard for you when you first start practicing this exercise, begin with fewer and work up to this number. Rest for a minute & then do a final set of 10-15. For detailed instructions, please visit the CDC website at http://www.cdc.gov/steadi/pdf/chair_rise_exercise-a.pdf Stepping On is an evidence based program proven to reduce falls in older adults. It is a workshop offered once a week for seven weeks. In a small-group setting, you will learn balance exercises and develop specific knowledge and skills to prevent falls. Older adults who should attend are those who: are at risk of falling who have fallen one or more times lives at home are able to walk without the help of another person Local guest experts provide information on exercise, safety, vision, and medications. Classes are offered at [facility]. To find out specifics about a class, please call [phone]. Aman chi: Moving for Better Balance involves low impact exercise. The 12-week class is offered for three hours per week and is led by a trained aviation maintenance instructor. It is intended for people aged 60 and older. Participants learn and perform a program of eight forms that progress from easy to more difficult. The program can accommodate persons with various physical conditions. Health Benefits of Aman Chi: Moving for Better Balance: Improved social and mental well-being, Improved balance and physical functioning, Improved confidence in conducting daily activities, Reduced risk of falling and sustaining associated injuries, and Maintained independence and improved quality of life. To find a Aman Chi program in your area or additional resources about fall prevention please contact: [facility] Violence and Injury Prevention Program at [phone] or [email or web address] A Matter of Balance: Managing Concerns about Falls is an evidence based program designed to reduce the fear of falling and increase activity levels of older adults. A trained geophysicist leads 8 two-hour sessions for small groups of older adults. The class is intended for people 60 and older who are at risk of falling have a fear of falling or restrict activities who have fallen in the past are interested in improving flexibility, balance, and strength. Participants will learn to view falls as controllable, set goals to increase activity levels, and reduce fall risks at home. Classes are offered in all [address] [place] [address] in [place]. For more information about specific classes near you, please visit http://aging.[place].gov/steadyu/resources/matterofbalance.aspx. documented in this encounter Summary Purpose Family History No Family History Records FoundNo Family History Records FoundNo Family History Records FoundNo Family History Records FoundNo Family History Records FoundNo Family History Records FoundNo Family History Records FoundNo Family History Records FoundNo Family History Records Found Advance Directives No Advanced Directives Records FoundLatest Code Status on File Code Status Date Activated Date Inactivated Comments Full Code 09/25/2016 2:05 PM 09/27/2016 5:43 PM Full Code - Unverified 03/11/2016 2:54 PM 03/12/2016 5 :23 PM Latest Code Status on File Code Status Date Activated Date Inactivated Comments Full Code 09/25/2016 2:05 PM 09/27/2016 5:43 PM Full Code - Unverified 03/11/2016 2:54 PM 03/12/2016 5 :23 PM Documents on File Type Date Recorded Patient Public Safety Director Expl anation Advance Directives and Livin g Will 05/30/2018 6:17 PM Documents on File Type Date Recorded Patient Public Safety Director Expl anation Advance Directives and Livin g Will 10/03/2018 2:21 PM Documents on File Type Date Recorded Patient Public Safety Director Expl anation Advance Directives and Livin g Will 11/11/2019 2:21 PM Documents on File Type Date Recorded Patient Public Safety Director Expl anation Advance Directives and Livin g Will 12/01/2019 1:40 PM Documents on File Type Date Recorded Patient Public Safety Director Expl anation Advance Directives and Livin g Will 12/01/2019 1:40 PM Documents on File Type Date Recorded Patient Public Safety Director Expl anation Advance Directives and Livin g Will 11/28/2020 11:22 AM Documents on File Type Date Recorded Patient Public Safety Director Expl anation Advance Directives and Livin g Will 11/28/2020 11:22 AM Documents on File Type Date Recorded Patient Public Safety Director Expl anation Advance Directives and Livin g Will 05/15/2021 11:22 AM Latest Code Status on File Code Status Date Activated Date Inactivated Comments Full Code 09/25/2016 2:05 PM 09/27/2016 5:43 PM Code Status History Code Status Date Activated Date Inactivated Comments Full Code - Unverified 03/11/2016 2:54 PM 03/12/2016 5 :23 PM Advance Directive Response Recorded Date/ Time Living Will Yes December 26, 2022 11:55pm Power of Stitchdown Thread Laster Yes December 11:55pm Name of Medical Power of Stitchdown Thread Laster [place]E [place] December 26, 2022 11:55pm Advance Directive Response Recorded Date/ Time Name of Medical Power of Stitchdown Thread Laster [place]E [place] December 26, 2022 11:55pm Living Will No February 09 4:29am Power of Stitchdown Thread Laster No February 09, 2023 4:29am Advance Directive Response Recorded Date/ Time Living Will Yes July 31, 2023 9:33pm Power of Stitchdown Thread Laster Yes July 30 9:33pm Name of Medical Power of Stitchdown Thread Laster roland, sister in law July 31, 2023 9:33pm History of Present Illness * Subhash Navas, DO - 01/31/2017 3:40 PM EDT Formatting of this note may be different from the original. Subjective: Patient ID: Deangelo Beach is a 77 y.o. female. Hypertension This is a chronic problem. The current episode started more than 1 year ago. The problem is controlled. Associated symptoms include anxiety. Pertinent negatives include no chest pain, headaches, malaise/fatigue, palpitations, peripheral edema or shortness of breath. Risk factors for coronary arterydisease include family history, dyslipidemia, sedentary lifestyle and post-menopausal state. Treatments tried: currently on metoprolol. The current treatment provides significant improvement. There are no compliance problems. Hyperlipidemia This is a chronic problem. The current episode started more than 1 year ago. Associated symptoms include myalgias (left leg pain). Pertinent negatives include no chest pain, leg pain or shortness of breath. Treatments tried: pt currently takes pravastatin. The current treatment provides significant improvement of lipids. There are no compliance problems. Risk factors for coronary artery disease include family history, dyslipidemia, hypertension, a sedentary lifestyle and post-menopausal. Anxiety Progression since onset: Patient states she is a little more anxious recently. Symptoms include depressed mood, excessive worry, irritability, nervous/anxious behavior and restlessness. Patient reports no chest pain, decreased concentration, dizziness, palpitations, shortness of breath or suicidal ideas. Symptoms occur constantly. The severity of symptoms is moderate. The symptoms are aggravated by medication withdrawal. The quality of sleep is fair. Treatments tried: patient is taking paroxetine. The treatment provided moderate relief. Compliance with prior treatments has been good (usually good. Not sure why she did not renew her paroxetine\). Back Pain This is a chronic problem. Episode onset: 10 years ago. Progression since onset: Somewhat improved since last visit. The pain is present in the lumbar spine. The quality of the pain is described as aching and shooting. The pain does not radiate. The pain is moderate. The symptoms are aggravated by bending, position, standing and twisting. Pertinent negatives include no abdominal pain, bladder incontinence, bowel incontinence, chest pain, dysuria, headaches, leg pain, numbness, tingling or weakness. She has tried analgesics and home exercises for the symptoms. The treatment provided mild relief. Leg Pain There was no injury mechanism. The pain is present in the left leg. The quality of the pain is described as aching and cramping. Pertinent negatives include no numbness or tingling. She has tried nothing for the symptoms. Social History Substance Use Topics Smoking status: Never Smoker Smokeless tobacco: Never Used Alcohol use No Family History Problem Relation Age of Onset Hypertension Father Heart attack Father Hyperlipidemia Brother Hyperlipidemia Sister The following portions of the patient's history were reviewed and updated as appropriate: allergies, current medications, past family history, past medical history, past social history, past surgicalhistory and problem list. Review of Systems Constitutional: Positive for irritability. Negative for activity change, fatigue and malaise/fatigue. Respiratory: Negative for cough and shortness of breath. Cardiovascular: Negative for chest pain, palpitations and leg swelling. Gastrointestinal: Negative for abdominal pain, blood in stool, bowel incontinence, constipation, diarrhea and rectal pain. Genitourinary: Negative for bladder incontinence, difficulty urinating, dysuria, flank pain, frequency, hematuria and urgency. Musculoskeletal: Positive for back pain, gait problem and myalgias (left leg pain). Negative for arthralgias. Skin: Toenail fungus both feet Neurological: Negative for dizziness, tingling, weakness, numbness and headaches. Psychiatric/Behavioral: Negative for decreased concentration, sleep disturbance and suicidal ideas.The patient is nervous/anxious. Objective: BP 100/60 Pulse 68 Temp 98 F (36.7 C) (Oral) Ht 5' 6 Wt 65.8 kg (145 lb) LMP (Approximate) Comment: 41 SpO2 96% BMI 23.4 kg/m2 Physical Exam Constitutional: She is cooperative. No distress. Neck: Neck supple. No muscular tenderness present. Carotid bruit is not present. No tracheal deviation present. No thyromegaly present. Cardiovascular: Normal rate, regular rhythm and normal heart sounds. No murmur heard. Pulmonary/Chest: Effort normal and breath sounds normal. She has no wheezes. Musculoskeletal: She exhibits no edema. Left leg: Tight ITB Hamstring and quads tight bilat Lymphadenopathy: She has no cervical adenopathy. Right: No supraclavicular adenopathy present. Left: No supraclavicular adenopathy present. Psychiatric: She has a normal mood and affect. Assessment/Plan: Diagnoses and all orders for this visit: Essential hypertension - CBC and Differential; Future - Comprehensive Metabolic Panel; Future Hyperlipidemia, unspecified hyperlipidemia type - pravastatin (PRAVACHOL) 40 MG tablet; Take 1 (one) tablet (40 mg total) by mouth nightly Reasons:hypercholesterolemia. - Lipid Panel; Future Anxiety Left leg pain Pt to do exercises daily Chronic bilateral low back pain without sciatica Flu vaccine need - Influenza vaccine IIV3 High Dose Proceed pending results. F/u in 4 months For any new medications prescribed today, patient was educated about indications for the medication, how to take the medication and potential side effects of the medications. in this encounter* Subhash Navas DO - 04/21/2018 2:27 PM EST Formatting of this note may be different from the original. Subjective: Patient ID: Deangelo Beach is a 78 y.o. female. Cough This is a new problem. Episode onset: one week ago. The problem has been unchanged. The cough is non-productive. Associated symptoms include chills, ear pain, a fever, nasal congestion, postnasal drip, rhinorrhea and wheezing. Pertinent negatives include no chest pain or shortness of breath. Treatments tried: tessolon perles. The treatment provided no relief. Ear Fullness There is pain in both ears. This is a new problem. The current episode started in the past 7 days. The pain is mild. Associated symptoms include coughing and rhinorrhea. Pertinent negatives include no abdominal pain or ear discharge. She has tried NSAIDs for the symptoms. Social History Substance Use Topics Smoking status: Never Smoker Smokeless tobacco: Never Used Alcohol use No Family History Problem Relation Age of Onset Hypertension Father Heart attack Father Hyperlipidemia Brother Hyperlipidemia Sister Allergies Allergen Reactions Alendronate GI Intolerance Severe GERD Lkskttm-Maw-Cja Reductase Inhibitors Zocor [Simvastatin] Latex Rash The following portions of the patient's history were reviewed and updated as appropriate: allergies, current medications, past family history, past medical history, past social history, past surgicalhistory and problem list. Review of Systems Constitutional: Positive for chills, fatigue and fever. HENT: Positive for congestion, ear pain, postnasal drip and rhinorrhea. Negative for ear discharge. Respiratory: Positive for cough and wheezing. Negative for shortness of breath. Cardiovascular: Negative for chest pain and leg swelling. Gastrointestinal: Negative for abdominal pain. Hematological: Negative for adenopathy. Objective: BP 120/62 Pulse 72 Temp 98.2 F (36.8 C) Ht 5' 6 Wt 70.3 kg (155 lb) SpO2 97% BMI 25.02kg/m Physical Exam Constitutional: She is cooperative. No distress. HENT: Right Ear: Tympanic membrane normal. Left Ear: Tympanic membrane normal. Nose: Rhinorrhea present. Right sinus exhibits no maxillary sinus tenderness. Left sinus exhibits no maxillary sinus tenderness. Mouth/Throat: No oropharyngeal exudate or posterior oropharyngeal erythema (but with clear posterior drainage ). Neck: Neck supple. No muscular tenderness present. Cardiovascular: Normal rate, regular rhythm and normal heart sounds. No murmur heard. Pulmonary/Chest: Effort normal and breath sounds normal. She has no wheezes. She has no rhonchi. Lymphadenopathy: She has no cervical adenopathy. Right: No supraclavicular adenopathy present. Left: No supraclavicular adenopathy present. Assessment/Plan: Diagnoses and all orders for this visit: Viral URI with cough - predniSONE (DELTASONE) 20 MG tablet; Take 1 (one) tablet (20 mg total) by mouth daily for 3 days . - promethazine-dextromethorphan (PROMETHAZINE-DM) 6.25-15 mg/5 mL syrup; Take 5 mL by mouth 4 (four) times a day as needed for cough . pt to call if not improving in next 7 to 10 days For any new medications prescribed today, patient was educated about indications for the medication, how to take the medication and potential side effects of the medications. This note was generated using Trovebox voice recognition software in an effort to expedite communication. Please excuse results in grammatical or wording errors. in this encounter* Subhash Navas DO - 05/26/2018 4:52 PM EST Subjective: Patient ID: Deangelo Beach is a 78 y.o. female. Hypertension This is a chronic problem. The current episode started more than 1 year ago. The problem is controlled. Associated symptoms include anxiety and neck pain. Pertinent negatives include no palpitations or peripheral edema. Risk factors for coronary artery disease include family history, dyslipidemia, sedentary lifestyle and post-menopausal state. Treatments tried: currently on metoprolol. The current treatment provides significant improvement. There are no compliance problems. Hyperlipidemia This is a chronic problem. The current episode started more than 1 year ago. Treatments tried: Patientis taking pravastatin The current treatment provides significant improvement of lipids. Risk factors for coronary artery disease include family history, dyslipidemia, hypertension, a sedentary lifestyle and post-menopausal. Anxiety Presents for initial visit. Progression since onset: Increased due to stopping the paroxetine. Symptoms include nervous/anxious behavior. Patient reports no decreased concentration, dizziness, palpitations or suicidal ideas. Symptoms occur constantly. The severity of symptoms is moderate. The symptoms are aggravated by medication withdrawal. The quality of sleep is fair. Treatments tried: patient is taking paroxetine. The treatment provided moderate relief. Compliance with prior treatments has been good (usually good. Not sure why she did not renew her paroxetine\). Neck Pain This is a new problem. Episode onset: 2 weeks ago. The problem occurs daily. The problem has been unchanged. The pain is present in the occipital region. The quality of the pain is described as aching and stabbing. The pain is moderate. Pertinent negatives include no numbness or weakness. She has tried nothing for the symptoms. Social History Tobacco Use Smoking status: Never Smoker Smokeless tobacco: Never Used Substance Use Topics Alcohol use: No Drug use: No Family History Problem Relation Age of Onset Hypertension Father Heart attack Father Hyperlipidemia Brother Hyperlipidemia Sister Allergies Allergen Reactions Alendronate GI Intolerance Severe GERD Hylornh-Znq-Mwq Reductase Inhibitors Zocor [Simvastatin] Latex Rash The following portions of the patient's history were reviewed and updated as appropriate: allergies, current medications, past family history, past medical history, past social history, past surgicalhistory and problem list. Review of Systems Constitutional: Negative for activity change and fatigue. Cardiovascular: Negative for palpitations and leg swelling. Gastrointestinal: Negative for blood in stool, constipation, diarrhea and rectal pain. Genitourinary: Negative for difficulty urinating, flank pain, frequency, hematuria and urgency. Musculoskeletal: Positive for neck pain and neck stiffness. Negative for arthralgias and gait problem. Neurological: Negative for dizziness, weakness and numbness. Psychiatric/Behavioral: Negative for decreased concentration, sleep disturbance and suicidal ideas.The patient is nervous/anxious. Objective: BP 126/64 Pulse 73 Temp 97.8 F (36.6 C) Ht 5' 6 Wt 70.3 kg (155 lb) SpO2 98% BMI 25.02kg/m Physical Exam Constitutional: She is cooperative. No distress. Neck: Neck supple. No muscular tenderness present. Carotid bruit is not present. No tracheal deviation present. No thyromegaly present. Cardiovascular: Normal rate, regular rhythm and normal heart sounds. No murmur heard. Pulmonary/Chest: Effort normal and breath sounds normal. She has no wheezes. Abdominal: Soft. Bowel sounds are normal. There is no tenderness. Musculoskeletal: She exhibits no edema. Cervical back: She exhibits decreased range of motion and tenderness ( myofascial tightness and tenderness left upper trapeziuls). She exhibits no bony tenderness. Lymphadenopathy: She has no cervical adenopathy. Right: No supraclavicular adenopathy present. Left: No supraclavicular adenopathy present. Psychiatric: She has a normal mood and affect. Assessment/Plan: Diagnoses and all orders for this visit: Neck pain - chlorzoxazone (PARAFON FORTE) 500 mg tablet; Take 1 (one) tablet (500 mg total) by mouth 3 (three) times a day as needed for muscle spasms . - Patient to do the stretching exercises twice daily Essential hypertension - metoprolol succinate (TOPROL-XL) 25 MG 24 hr tablet; Take 0.5 (one-half) tablet (12.5 mg total) by mouth daily . Hyperlipidemia, unspecified hyperlipidemia type Anxiety - Continue paroxetine daily Patient to follow-up in 4 months or sooner if needed For any new medications prescribed today, patient was educated about indications for the medication, how to take the medication and potential side effects of the medications. This note was generated using Trovebox voice recognition software in an effort to expedite communication. Please excuse results in grammatical or wording errors. in this encounter* Anahi Garcia LPN - 06/02/2018 10:01 AM EST Patient was evaluated in the emergency department on 05-30-18 Patient has a follow up with PCP within 14 days. No further action needed at this time. in this encounter* Subhash Navas DO - 06/02/2018 8:47 PM EST Subjective: Patient ID: Deangelo Beach is a 78 y.o. female. Cough This is a new problem. The current episode started in the past 7 days. The problem has been unchanged. The problem occurs hourly. The cough is non- productive. Associated symptoms include chills, a fever, nasal congestion, postnasal drip, rhinorrhea and shortness of breath ( With the cough). Pertinent negatives include no chest pain or sore throat. Treatments tried: OTC cough meds. The treatment provided no relief. Diarrhea This is a new problem. The current episode started in the past 7 days. Episode frequency: Initiallyover 5 times a day. The problem has been gradually improving. The stool consistency is described aswatery. Associated symptoms include abdominal pain, chills, coughing and a fever. Treatments tried:Given Bentyl by the ER. Improvement on treatment: Made her diarrhea worse. Social History Tobacco Use Smoking status: Never Smoker Smokeless tobacco: Never Used Substance Use Topics Alcohol use: No Drug use: No Family History Problem Relation Age of Onset Hypertension Father Heart attack Father Hyperlipidemia Brother Hyperlipidemia Sister Allergies Allergen Reactions Alendronate GI Intolerance Severe GERD Nlhocwb-Ubh-Fse Reductase Inhibitors Zocor [Simvastatin] Latex Rash The following portions of the patient's history were reviewed and updated as appropriate: allergies, current medications, past family history, past medical history, past social history, past surgicalhistory and problem list. Review of Systems Constitutional: Positive for activity change, appetite change, chills, fatigue and fever. HENT: Positive for postnasal drip and rhinorrhea. Negative for sore throat. Respiratory: Positive for cough and shortness of breath ( With the cough). Cardiovascular: Negative for chest pain. Gastrointestinal: Positive for abdominal pain and diarrhea. Negative for blood in stool. Genitourinary: Negative for flank pain. Hematological: Negative for adenopathy. Objective: BP 120/66 Pulse 77 Temp 98.2 F (36.8 C) Ht 5' 6 Wt 70.3 kg (155 lb) SpO2 97% BMI 25.02kg/m Physical Exam Constitutional: She is cooperative. She appears distressed. HENT: Right Ear: Tympanic membrane normal. Left Ear: Tympanic membrane normal. Nose: Rhinorrhea present. Right sinus exhibits no maxillary sinus tenderness. Left sinus exhibits no maxillary sinus tenderness. Mouth/Throat: No oropharyngeal exudate or posterior oropharyngeal erythema (but with clear posterior drainage ). Neck: Neck supple. No muscular tenderness present. Cardiovascular: Normal rate, regular rhythm and normal heart sounds. No murmur heard. Pulmonary/Chest: Effort normal and breath sounds normal. She has no wheezes. She has no rhonchi. Abdominal: Soft. Bowel sounds are normal. There is no tenderness. There is no CVA tenderness. Lymphadenopathy: She has no cervical adenopathy. Right: No supraclavicular adenopathy present. Left: No supraclavicular adenopathy present. Assessment/Plan: Diagnoses and all orders for this visit: Cough Diarrhea Anxiety - hydrOXYzine (VISTARIL) 25 MG capsule; Take 1 (one) capsule (25 mg total) by mouth 3 (three) timesa day as needed for anxiety . Other orders - benzonatate (TESSALON) 100 MG capsule; Take 1 (one) capsule (100 mg total) by mouth 3 (three) times a day as needed for cough . - promethazine-dextromethorphan (PROMETHAZINE-DM) 6.25-15 mg/5 mL syrup; Take 5 mL by mouth 4 (four) times a day as needed for cough . For any new medications prescribed today, patient was educated about indications for the medication, how to take the medication and potential side effects of the medications. This note was generated using [employer] voice recognition software in an effort to expedite communication. Please excuse results in grammatical or wording errors. in this encounter* Subhash Navas DO - 12/03/2016 2:03 PM EDT Formatting of this note may be different from the original. Subjective: Patient ID: Deangelo Beach is a 76 y.o. female. HPI Comments: Follow-up regarding diet HPI: Patient states that she still has not been eating any other foods that were on the list given by the ER. She did see her urologist who told her she could eat anything but greasy foods and chocolate. But she has been afraid to eat anything else. After more discussion she states she will start eating known limits for greasy foods and chocolate. I recommended that she throw away the list that she got from the ER. This list included foods to avoid with every type of kidney stone. Diarrhea This is a new problem. Episode onset: About 10 days ago. Episode frequency: Occurs intermittently. The stool consistency is described as watery. The patient states that diarrhea does not awaken her from sleep. Pertinent negatives include no abdominal pain or fever. The symptoms are aggravated by stress. Treatments tried: Has been using Imodium. The treatment provided mild relief. Social History Substance Use Topics Smoking status: Never Smoker Smokeless tobacco: Never Used Alcohol use No Family History Problem Relation Age of Onset Hypertension Father Heart attack Father Hyperlipidemia Brother Hyperlipidemia Sister The following portions of the patient's history were reviewed and updated as appropriate: allergies, current medications, past family history, past medical history, past social history, past surgicalhistory and problem list. Review of Systems Constitutional: Negative for fatigue and fever. Respiratory: Negative for shortness of breath. Cardiovascular: Negative for chest pain, palpitations and leg swelling. Gastrointestinal: Positive for diarrhea. Negative for abdominal pain and blood in stool. Genitourinary: Negative for difficulty urinating, dysuria, flank pain, frequency, hematuria and urgency. Objective: BP 94/62 (BP Location: Left arm, Patient Position: Sitting) Pulse 64 Temp 97.8 F (36.6 C) Ht 5' 6 Wt 65.3 kg (144 lb) LMP (Approximate) SpO2 96% BMI 23.24 kg/m2 Physical Exam Constitutional: She is cooperative. No distress. Cardiovascular: Normal rate, regular rhythm and normal heart sounds. No murmur heard. Pulmonary/Chest: Effort normal and breath sounds normal. Abdominal: Soft. Bowel sounds are normal. There is no tenderness. There is no CVA tenderness. Psychiatric: Her mood appears anxious. Assessment/Plan: Diagnoses and all orders for this visit: Diarrhea, unspecified type - colesevelam (WELCHOL) 625 mg tablet; Take 1 (one) tablet (625 mg total) by mouth 2 (two) times a day as needed. Dyspepsia - omeprazole (PRILOSEC) 20 MG capsule; Take 1 (one) capsule (20 mg total) by mouth daily. Risk for falls Patient to follow-up in 3 months or sooner if needed She states that she will start to increase her diet as directed For any new medications prescribed today, patient was educated about indications for the medication, how to take the medication and potential side effects of the medications. in this encounter* Subhash Navas DO - 09/23/2018 4:30 PM EDT Subjective: Patient ID: Deangelo Beach is a 78 y.o. female. Hypertension This is a chronic problem. The current episode started more than 1 year ago. The problem is controlled. Associated symptoms include anxiety. Pertinent negatives include no palpitations or peripheral edema. Risk factors for coronary artery disease include family history, dyslipidemia, sedentary lifestyle, post- menopausal state and stress. Treatments tried: currently on metoprolol succinate 12.5 mgdaily. The current treatment provides significant improvement. There are no compliance problems. Hyperlipidemia This is a chronic problem. The current episode started more than 1 year ago. Treatments tried: Patientis taking pravastatin The current treatment provides significant improvement of lipids. Risk factors for coronary artery disease include family history, dyslipidemia, hypertension, a sedentary lifestyle and post-menopausal. Anxiety Presents for follow-up visit. Progression since onset: Increased due to stopping the paroxetine. Symptoms include excessive worry, irritability and nervous/anxious behavior. Patient reports no decreased concentration, dizziness, palpitations or suicidal ideas. Symptoms occur constantly. The severity of symptoms is moderate. The symptoms are aggravated by medication withdrawal. The quality of sleep is fair. Treatments tried: patient is taking paroxetine. The treatment provided moderate relief. Compliance with prior treatments has been good (usually good. Not sure why she did not renew her paroxetine\). Compliance with medications: Patient does take her paroxetine 40 mg daily. Social History Tobacco Use Smoking status: Never Smoker Smokeless tobacco: Never Used Substance Use Topics Alcohol use: No Drug use: No Family History Problem Relation Age of Onset Hypertension Father Heart attack Father Hyperlipidemia Brother Hyperlipidemia Sister Allergies Allergen Reactions Alendronate GI Intolerance Severe GERD Zobxdny-Ske-Pmh Reductase Inhibitors Zocor [Simvastatin] Latex Rash The following portions of the patient's history were reviewed and updated as appropriate: allergies, current medications, past family history, past medical history, past social history, past surgicalhistory and problem list. Review of Systems Constitutional: Positive for irritability. Negative for activity change and fatigue. Eyes: Negative for visual disturbance. Cardiovascular: Negative for palpitations and leg swelling. Gastrointestinal: Negative for blood in stool, constipation, diarrhea and rectal pain. Genitourinary: Negative for difficulty urinating, flank pain, frequency, hematuria and urgency. Musculoskeletal: Negative for arthralgias and gait problem. Neurological: Negative for dizziness. Psychiatric/Behavioral: Positive for agitation. Negative for decreased concentration, sleep disturbance and suicidal ideas. The patient is nervous/anxious. Objective: BP 124/68 Pulse 70 Temp 98 F (36.7 C) Ht 5' 6 Wt 66.2 kg (146 lb) SpO2 96% BMI 23.57 kg/m Physical Exam Constitutional: She is cooperative. No distress. Neck: Neck supple. No muscular tenderness present. Carotid bruit is not present. No tracheal deviation present. No thyromegaly present. Cardiovascular: Normal rate, regular rhythm and normal heart sounds. No murmur heard. Pulmonary/Chest: Effort normal and breath sounds normal. She has no wheezes. Abdominal: Soft. Bowel sounds are normal. There is no tenderness. Musculoskeletal: She exhibits no edema. Lymphadenopathy: She has no cervical adenopathy. Right: No supraclavicular adenopathy present. Left: No supraclavicular adenopathy present. Psychiatric: She has a normal mood and affect. Assessment/Plan: Diagnoses and all orders for this visit: Essential hypertension - metoprolol succinate (TOPROL-XL) 25 MG 24 hr tablet; Take 0.5 (one-half) tablet (12.5 mg total) by mouth daily . Asthma, intermittent, uncomplicated Anxiety - PARoxetine (PAXIL) 40 MG tablet; Take 1 (one) tablet (40 mg total) by mouth daily . Chronic bilateral low back pain without sciatica Hyperlipidemia, unspecified hyperlipidemia type - pravastatin (PRAVACHOL) 40 MG tablet; Take 1 (one) tablet (40 mg total) by mouth nightly Reasons:high cholesterol. Patient to follow-up in 4 months or sooner if needed For any new medications prescribed today, patient was educated about indications for the medication, how to take the medication and potential side effects of the medications. This note was generated using [employer] voice recognition software in an effort to expedite communication. Please excuse results in grammatical or wording errors. documented in this encounter* Subhash Navas DO - 01/12/2019 2:00 PM EDT Subjective: Patient ID: Deangelo Beach is a 78 y.o. female. Seborrhea capitis HPI: Patient states that the flaking and itching around her ears has improved. She has been using the ketoconazole shampoo and Neutrogena due to the same as prescribed. She is also using the Lidex solution every day. She feels that the dryness and flaking rash around her years is almost completely gone and there are only a few scattered areas still remaining in her scalp. Hypertension This is a chronic problem. The current episode started more than 1 year ago. Associated symptoms include anxiety. Pertinent negatives include no palpitations or peripheral edema. Risk factors for coronary artery disease include family history, dyslipidemia, sedentary lifestyle, post-menopausal state and stress. Treatments tried: currently on metoprolol succinate 12.5 mg daily. The current treatment provides significant improvement. There are no compliance problems. Hyperlipidemia This is a chronic problem. The current episode started more than 1 year ago. Treatments tried: Patientis taking pravastatin The current treatment provides significant improvement of lipids. Risk factors for coronary artery disease include family history, dyslipidemia, hypertension, a sedentary lifestyle and post-menopausal. Anxiety Presents for follow-up visit. Progression since onset: Increased due to stopping the paroxetine. Symptoms include excessive worry, irritability and nervous/anxious behavior ( controlled). Patient reports no decreased concentration, dizziness, palpitations or suicidal ideas. Symptoms occur constantly. The severity of symptoms is moderate. The symptoms are aggravated by medication withdrawal. The quality of sleep is fair. Treatments tried: patient is taking paroxetine. The treatment provided moderate relief. Compliance with prior treatments has been good (usually good. Not sure why she did not renew her paroxetine\). Compliance with medications: Patient does take her paroxetine 40 mg daily. Social History Tobacco Use Smoking status: Never Smoker Smokeless tobacco: Never Used Substance Use Topics Alcohol use: No Drug use: No Family History Problem Relation Age of Onset Hypertension Father Heart attack Father Hyperlipidemia Brother Hyperlipidemia Sister Allergies Allergen Reactions Alendronate GI Intolerance Severe GERD Ucyndxc-Dqz-Pql Reductase Inhibitors Zocor [Simvastatin] Latex Rash The following portions of the patient's history were reviewed and updated as appropriate: allergies, current medications, past family history, past medical history, past social history, past surgicalhistory and problem list. Review of Systems Constitutional: Positive for irritability. Negative for activity change and fatigue. Eyes: Negative for visual disturbance. Cardiovascular: Negative for palpitations and leg swelling. Gastrointestinal: Negative for blood in stool, constipation and diarrhea. Genitourinary: Negative for difficulty urinating, flank pain, frequency, hematuria and urgency. Musculoskeletal: Negative for arthralgias and gait problem. Skin: Positive for rash ( Seborrhea of the scalp improving ). Neurological: Negative for dizziness. Psychiatric/Behavioral: Negative for agitation, decreased concentration, sleep disturbance and suicidal ideas. The patient is nervous/anxious ( controlled). Objective: BP 122/74 Pulse 73 Temp (!) 66 F (18.9 C) Ht 5' 6 Wt 65.8 kg (145 lb) SpO2 96% BMI 23.40 kg/m Physical Exam Constitutional: General: She is not in acute distress. Appearance: Normal appearance. Neck: Musculoskeletal: Neck supple. No muscular tenderness. Thyroid: No thyromegaly. Vascular: No carotid bruit. Trachea: No tracheal deviation. Cardiovascular: Rate and Rhythm: Normal rate and regular rhythm. Heart sounds: Normal heart sounds. No murmur. Pulmonary: Effort: Pulmonary effort is normal. Breath sounds: Normal breath sounds. No wheezing, rhonchi or rales. Musculoskeletal: General: No swelling. Right lower leg: No edema. Left lower leg: No edema. Lymphadenopathy: Cervical: No cervical adenopathy. Upper Body: Right upper body: No supraclavicular adenopathy. Left upper body: No supraclavicular adenopathy. Skin: Comments: There is only mild flakiness behind the ears and a few dry patches throughout the scalp. Psychiatric: Mood and Affect: Mood and affect normal. Assessment/Plan: Diagnoses and all orders for this visit: Essential hypertension Hyperlipidemia, unspecified hyperlipidemia type Anxiety Seborrhea capitis No change in current medications Patient follow-up in 4 months or sooner if needed For any new medications prescribed today, patient was educated about indications for the medication, how to take the medication and potential side effects of the medications. This note was generated using [employer] voice recognition software in an effort to expedite communication. Please excuse results in grammatical or wording errors. Depression Screening 05/16/2017 01/12/2019 Little interest or pleasure in doing things - 1 Feeling down, depressed, or hopeless - 1 PHQ-2 Total Score - 2 Trouble falling or staying asleep, or sleeping too much 0 2 Feeling tired or having little energy 0 2 Poor appetite or overeating 0 0 Feeling bad about yourself - or that you are a failure or have let yourself or your family down 0 0 Trouble concentrating on things, such as reading the newspaper or watching television 0 0 Moving or speaking so slowly that other people could have noticed. Or the opposite - being so fidgety or restless that you have been moving around a lot more than usual 0 0 Thoughts that you would be better off , or of hurting yourself in some way 0 0 If you checked off any problems, how difficult have these problems made it for you to do your work,take care of things at home, or get along with other people? Not difficult at all Not difficult at all documented in this encounter* Subhash Navas DO - 04/30/2019 11:52 AM EST Subjective: Patient ID: Deangelo Beach is a 79 y.o. female. Diarrhea This is a recurrent problem. The current episode started in the past 7 days. The problem occurs 2 to 4 times per day. The problem has been gradually improving. The stool consistency is described as watery. The patient states that diarrhea awakens her from sleep. Associated symptoms include abdominal pain and chills. Pertinent negatives include no bloating, fever, increased flatus, vomiting or weight loss. Treatments tried: immodium did not help. Social History Tobacco Use Smoking status: Never Smoker Smokeless tobacco: Never Used Substance Use Topics Alcohol use: No Drug use: No Family History Problem Relation Age of Onset Hypertension Father Heart attack Father Hyperlipidemia Brother Hyperlipidemia Sister Allergies Allergen Reactions Alendronate GI Intolerance Severe GERD Fyznllp-Pwp-Jci Reductase Inhibitors Zocor [Simvastatin] Latex Rash The following portions of the patient's history were reviewed and updated as appropriate: allergies, current medications, past family history, past medical history, past social history, past surgicalhistory and problem list. Review of Systems Constitutional: Positive for chills. Negative for fever and weight loss. Gastrointestinal: Positive for abdominal pain and diarrhea. Negative for bloating, blood in stool, flatus, nausea and vomiting. Genitourinary: Negative for dysuria, flank pain and hematuria. Objective: BP 108/68 (BP Location: Right arm, Patient Position: Sitting, BP Cuff Size: Adult) Pulse 76 Temp 97.6 F (36.4 C) (Oral) Ht 5' 6 Wt 67.9 kg (149 lb 9.6 oz) SpO2 95% BMI 24.15 kg/m Physical Exam Constitutional: General: She is not in acute distress. Appearance: Normal appearance. Neck: Musculoskeletal: Neck supple. No muscular tenderness. Thyroid: No thyromegaly. Vascular: No carotid bruit. Cardiovascular: Rate and Rhythm: Normal rate and regular rhythm. Heart sounds: Normal heart sounds. No murmur. Pulmonary: Effort: Pulmonary effort is normal. Breath sounds: Normal breath sounds. No wheezing, rhonchi or rales. Abdominal: General: Bowel sounds are normal. Palpations: Abdomen is soft. Tenderness: There is abdominal tenderness in the suprapubic area and left lower quadrant. There is no right CVA tenderness, left CVA tenderness, guarding or rebound. Hernia: No hernia is present. Musculoskeletal: General: No swelling. Right lower leg: No edema. Left lower leg: No edema. Psychiatric: Mood and Affect: Mood and affect normal. Assessment/Plan: Diagnoses and all orders for this visit: Diarrhea, unspecified type - hyoscyamine (Levsin) 0.125 mg tablet; Take 1 (one) tablet (0.125 mg total) by mouth 3 (three) times a day as needed for cramping . Irritable bowel syndrome, unspecified type - hyoscyamine (Levsin) 0.125 mg tablet; Take 1 (one) tablet (0.125 mg total) by mouth 3 (three) times a day as needed for cramping . Patient to call regarding response to treatment For any new medications prescribed today, patient was educated about indications for the medication, how to take the medication and potential side effects of the medications. This note was generated using [employer] voice recognition software in an effort to expedite communication. Please excuse results in grammatical or wording errors. * Krystal Armando MA - 04/30/2019 11:32 AM EST Pt here c/o of Diarrhea she had since last Saturday, (04/20/19). Still some issues still on Saturday and Saturday, but seems to be better now. Pt took OTC Imodium documented in this encounter* Subhash Navas DO - 11/11/2019 2:37 PM EDT Subjective: Patient ID: Deangelo Beach is a 79 y.o. female. Hypertension This is a chronic problem. The current episode started more than 1 year ago. Associated symptoms include anxiety. Pertinent negatives include no palpitations or peripheral edema. Risk factors for coronary artery disease include family history, dyslipidemia, sedentary lifestyle, post-menopausal state and stress. Treatments tried: currently on metoprolol succinate 12.5 mg daily. The current treatment provides significant improvement. There are no compliance problems. Hyperlipidemia This is a chronic problem. The current episode started more than 1 year ago. Treatments tried: Patientis taking pravastatin The current treatment provides significant improvement of lipids. Risk factors for coronary artery disease include family history, dyslipidemia, hypertension, a sedentary lifestyle and post-menopausal. Anxiety Presents for follow-up visit. Progression since onset: Increased due to stopping the paroxetine. Symptoms include excessive worry, irritability and nervous/anxious behavior ( controlled). Patient reports no decreased concentration, dizziness, palpitations or suicidal ideas. Symptoms occur constantly. The severity of symptoms is moderate. The symptoms are aggravated by medication withdrawal. The quality of sleep is fair. Treatments tried: patient is taking paroxetine. The treatment provided moderate relief. Compliance with prior treatments has been good (usually good. Not sure why she did not renew her paroxetine\). Compliance with medications: Patient does take her paroxetine 40 mg daily. Social History Tobacco Use Smoking status: Never Smoker Smokeless tobacco: Never Used Substance Use Topics Alcohol use: No Drug use: No Family History Problem Relation Age of Onset Hypertension Father Heart attack Father Hyperlipidemia Brother Hyperlipidemia Sister Allergies Allergen Reactions Alendronate GI Intolerance Severe GERD Hlzoubk-Hmq-Yti Reductase Inhibitors Zocor [Simvastatin] Latex Rash The following portions of the patient's history were reviewed and updated as appropriate: allergies, current medications, past family history, past medical history, past social history, past surgicalhistory and problem list. Review of Systems Constitutional: Positive for irritability. Negative for activity change and fatigue. Eyes: Negative for visual disturbance. Cardiovascular: Negative for palpitations and leg swelling. Gastrointestinal: Negative for blood in stool, constipation and diarrhea. Genitourinary: Negative for difficulty urinating, flank pain, frequency, hematuria and urgency. Musculoskeletal: Negative for arthralgias and gait problem. Skin: Positive for rash ( Seborrhea controlled). Neurological: Negative for dizziness. Psychiatric/Behavioral: Negative for agitation, decreased concentration, sleep disturbance and suicidal ideas. The patient is nervous/anxious ( controlled). Objective: BP 110/60 Pulse 78 Temp 97.8 F (36.6 C) Ht 5' 6 Wt 67.1 kg (148 lb) SpO2 97% BMI 23.89kg/m Physical Exam Constitutional: General: She is not in acute distress. Appearance: Normal appearance. Neck: Musculoskeletal: Neck supple. No muscular tenderness. Thyroid: No thyromegaly. Vascular: No carotid bruit. Trachea: No tracheal deviation. Cardiovascular: Rate and Rhythm: Normal rate and regular rhythm. Heart sounds: Normal heart sounds. No murmur. Pulmonary: Effort: Pulmonary effort is normal. Breath sounds: Normal breath sounds. No wheezing, rhonchi or rales. Musculoskeletal: General: No swelling. Right lower leg: No edema. Left lower leg: No edema. Lymphadenopathy: Cervical: No cervical adenopathy. Upper Body: Right upper body: No supraclavicular adenopathy. Left upper body: No supraclavicular adenopathy. Skin: Comments: There is only mild flakiness behind the ears and a few dry patches throughout the scalp. Psychiatric: Mood and Affect: Mood and affect normal. Assessment/Plan: Diagnoses and all orders for this visit: Hyperlipidemia, unspecified hyperlipidemia type Essential hypertension - metoprolol succinate (TOPROL-XL) 25 MG 24 hr tablet; Take 0.5 (one-half) tablet (12.5 mg total) by mouth daily . Anxiety - PARoxetine (PAXIL) 40 MG tablet; Take 1 (one) tablet (40 mg total) by mouth daily . Patient to follow-up in 3 months or sooner if needed For any new medications prescribed today, patient was educated about indications for the medication, how to take the medication and potential side effects of the medications. This note was generated using Trovebox voice recognition software in an effort to expedite communication. Please excuse results in grammatical or wording errors. documented in this encounter* Subhash Navas DO - 03/01/2020 7:02 PM EST Subjective: Patient ID: Deangelo Beach is a 80 y.o. female. Preoperative examination HPI: Patient presents today at the request of Dr. Ramiro Bragg DO for presurgical evaluation prior to bilateral cataract surgery. Cardiovascular Hx: Patient is treated for hypertension and hyperlipidemia. She does have a family history of heart disease. Patient states that she is active in her home at this time. She cleans regularly and climbs up and down stairs several times a day. She does these activities without anginal symptoms. She has a normal EKG today in this office. Pulmonary Hx: Patient has never smoked cigarettes or use nicotine products. Patient Active Problem List Diagnosis Asthma, intermittent, uncomplicated IBS (irritable bowel syndrome) Hyperlipidemia Allergy Kidney disease Cat allergies Diverticular disease Osteopenia Cephalgia Rash Anxiety Dysphagia Essential hypertension Left nephrolithiasis Prophylactic measure Chronic bilateral low back pain without sciatica Onychomycosis Hydronephrosis SALMA (acute kidney injury) ([facility]) Sepsis due to Escherichia coli (E. coli) ([facility]) Dyspepsia Flu vaccine need Past Medical History: Diagnosis Date Acute bronchospasm Allergy Anxiety Asthma Cancer ([facility]) kidney Cat allergies Cephalgia Colon polyp Contusion, chest wall Diarrhea Diverticular disease Eczema Essential hypertension 01/26/2016 Fatigue Hyperlipidemia Hypertension IBS (irritable bowel syndrome) Inflammatory bowel disease Kidney disease kidney anomaly Multiple contusions of trunk Osteopenia Otitis media Rash Rhinitis due to pollen Sleep disturbance Sprain of left knee Thyromegaly Past Surgical History: Procedure Laterality Date CYSTO URETERAL STENT PLACEMENT N/A 09/25/2016 Procedure: Flexible cystoscopy, left retrograde pyelogram with ureteral stent placement, 6F x 26cm.Fluoroscopy time <1 hour with interpretation of images.; Surgeon: Angelica Torrez MD; Location: Main OR; Service: CYSTO URETEROSCOPY Left 11/07/2016 Procedure: CYSTOSCOPY WITH LEFT URETEROSCOPY W/ LITHOTRIPSY AND LEFT STENT REMOVAL POSSIBLE LEFT STENT PLACEMENT; Surgeon: Luisana Ram MD; Location: [facility] Main OR; Service: EGD N/A 11/11/2015 Procedure: EGD; Surgeon: Gold Hope MD; Location: Endo; Service: HYSTERECTOMY N/A 1982 NEPHRECTOMY Right 2010 NEPHRECTOMY Right Family History Problem Relation Age of Onset Hypertension Father Heart attack Father Hyperlipidemia Brother Hyperlipidemia Sister Heart disease Paternal Grandfather Social History Tobacco Use Smoking status: Never Smoker Smokeless tobacco: Never Used Substance Use Topics Alcohol use: No Drug use: No Allergies Allergen Reactions Alendronate GI Intolerance Severe GERD Wqekhqf-Wey-Uay Reductase Inhibitors Zocor [Simvastatin] Latex Rash Current Outpatient Medications Medication Sig Dispense Refill albuterol (ProAir HFA) 90 mcg/actuation inhaler Inhale 2 (two) puffs every 4 (four) hours as neededfor wheezing . 1 Inhaler 2 chlorzoxazone (PARAFON FORTE) 500 mg tablet Take 1 (one) tablet (500 mg total) by mouth 3 (three) times a day as needed for muscle spasms . 15 tablet 0 metoprolol succinate (TOPROL-XL) 25 MG 24 hr tablet Take 0.5 (one-half) tablet (12.5 mg total) by mouth daily . 90 tablet 1 PARoxetine (PAXIL) 40 MG tablet Take 1 (one) tablet (40 mg total) by mouth daily . 90 tablet 1 pravastatin (PRAVACHOL) 40 MG tablet Take 1 (one) tablet (40 mg total) by mouth nightly Reasons: high cholesterol. 30 tablet 5 gentamicin (GARAMYCIN) 0.3 % ophthalmic solution prednisoLONE acetate (PRED FORTE) 1 % ophthalmic suspension No current facility-administered medications for this visit. Review of Systems Constitutional: Negative for activity change and fatigue. HENT: Negative for congestion, hearing loss, rhinorrhea, sinus pressure, sinus pain and tinnitus. Respiratory: Negative for cough and shortness of breath. Cardiovascular: Negative for chest pain, palpitations and leg swelling. Gastrointestinal: Negative for abdominal pain and blood in stool. Genitourinary: Negative for difficulty urinating, flank pain, frequency, hematuria and urgency. Musculoskeletal: Negative for arthralgias and gait problem. Skin: Positive for rash ( Seborrhea controlled). Neurological: Negative for dizziness and headaches. Psychiatric/Behavioral: Negative for agitation, decreased concentration, sleep disturbance and suicidal ideas. The patient is nervous/anxious ( controlled). Objective: BP 106/60 (BP Location: Right arm, Patient Position: Sitting, BP Cuff Size: Adult) Pulse 69 Temp 97.6 F (36.4 C) (Skin) Ht 5' 6 Wt 66.7 kg (147 lb) SpO2 95% BMI 23.73 kg/m Physical Exam Constitutional: Appearance: Normal appearance. HENT: Head: Normocephalic. Right Ear: Tympanic membrane normal. Left Ear: Tympanic membrane normal. Nose: No congestion or rhinorrhea. Mouth/Throat: Mouth: Mucous membranes are moist. Pharynx: Oropharynx is clear. Eyes: Extraocular Movements: Extraocular movements intact. Conjunctiva/sclera: Conjunctivae normal. Pupils: Pupils are equal, round, and reactive to light. Neck: Musculoskeletal: Neck supple. No muscular tenderness. Thyroid: No thyromegaly. Vascular: No carotid bruit. Trachea: No tracheal deviation. Cardiovascular: Rate and Rhythm: Normal rate and regular rhythm. Pulses: Normal pulses. Heart sounds: Normal heart sounds. No murmur. Pulmonary: Effort: Pulmonary effort is normal. Breath sounds: Normal breath sounds. Abdominal: General: Bowel sounds are normal. Palpations: Abdomen is soft. There is no mass. Tenderness: There is no abdominal tenderness. Musculoskeletal: Normal range of motion. Right lower leg: No edema. Left lower leg: No edema. Lymphadenopathy: Cervical: No cervical adenopathy. Upper Body: Right upper body: No supraclavicular adenopathy. Left upper body: No supraclavicular adenopathy. Skin: General: Skin is warm and dry. Neurological: Cranial Nerves: Cranial nerves are intact. Motor: Motor function is intact. Deep Tendon Reflexes: Reflexes are normal and symmetric. Psychiatric: Mood and Affect: Mood and affect normal. Assessment/Plan: Diagnoses and all orders for this visit: Pre-op exam - ECG 12 Lead; Future - CBC and Differential; Future - Basic Metabolic Panel; Future - ECG 12 Lead Cataract of both eyes, unspecified cataract type Patient had a normal EKG today in this office and she does 4+ METS of activity without anginal symptoms. Pending unremarkable lab, based on current ACC/AHA criteria she is considered an adequate riskfor this low risk surgical procedure. This note was generated using Trovebox voice recognition software in an effort to expedite communication. Please excuse results in grammatical or wording errors. documented in this encounter* Subhash Navas DO - 12/10/2018 12:39 PM EDT Subjective: Patient ID: Deangelo Beach is a 78 y.o. female. Seborrhea capitis HPI: Patient states that the flaking and itching around her ears has increased. It is worse around the left ear. She is using her ketoconazole shampoo 3 times a week and the other day she is using Neutrogena T-Gel shampoo. She is also been using the Lidex solution. She feels that her scalp itself is improved but the area around her ears has gotten worse. Neck pain HPI: Patient continues to have the intermittent muscular spasms around her neck that make it difficult to move her neck and the spasms are painful. Fortunately the Parafon forte does give her relief.She uses this on an as-needed basis. Social History Tobacco Use Smoking status: Never Smoker Smokeless tobacco: Never Used Substance Use Topics Alcohol use: No Drug use: No Family History Problem Relation Age of Onset Hypertension Father Heart attack Father Hyperlipidemia Brother Hyperlipidemia Sister Allergies Allergen Reactions Alendronate GI Intolerance Severe GERD Cihvyax-Dxp-Mhd Reductase Inhibitors Zocor [Simvastatin] Latex Rash The following portions of the patient's history were reviewed and updated as appropriate: allergies, current medications, past family history, past medical history, past social history, past surgicalhistory and problem list. Review of Systems Musculoskeletal: Positive for neck pain and neck stiffness. Skin: Positive for rash ( Around both ears ). Neurological: Negative for dizziness, weakness, numbness and headaches. Objective: BP 96/60 Pulse 73 Temp 97.8 F (36.6 C) Ht 5' 6 Wt 64 kg (141 lb) SpO2 96% BMI 22.76 kg/m Physical Exam Constitutional: General: She is not in acute distress. Musculoskeletal: Cervical back: She exhibits decreased range of motion ( Mild in all planes) and tenderness ( Mild).She exhibits no bony tenderness and no spasm. Skin: Comments: There is mild flakiness throughout the scalp. There is diffuse flaking, dryness and secondary excoriation around both ears. Assessment/Plan: Diagnoses and all orders for this visit: Neck pain - chlorzoxazone (PARAFON FORTE) 500 mg tablet; Take 1 (one) tablet (500 mg total) by mouth 3 (three) times a day as needed for muscle spasms . Seborrhea capitis - triamcinolone (KENALOG) 0.1 % cream; Apply topically 2 (two) times a day . At low risk for fall Return in about 1 month (around 01/10/2019). For any new medications prescribed today, patient was educated about indications for the medication, how to take the medication and potential side effects of the medications. This note was generated using Trovebox voice recognition software in an effort to expedite communication. Please excuse results in grammatical or wording errors. documented in this encounter Reason for Referral Status Reason Specialty Diagnoses / Procedures Referred By Contact Referred To Contact Pending Review Radiology Diagnoses Screening mammogram, encounter for Procedures Mammography Screening Bilateral Subhash Navas DO [address] [place] [address] Status Reason Specialty Diagnoses / Procedures Referred By Contact Referred To Contact Pending Review Diagnoses Neck pain GracesouravcorinaSubhash DO [facility] [place] [address] Status Reason Specialty Diagnoses / Procedures Referre d By Contact Referred To Contact Closed Diagnoses Anxiety GraceemileebruceSubhash DO [facility] [place] [address] Status Reason Specialty Diagnoses / Procedures Referred By Contact Referred To Contact Authorized Cardiology Diagnoses Pre-op exam Procedures ECG 12 Lead GracerosanaSubhash DO [address] [place] [address] Status Reason Specialty Diagnoses / Procedures Referred By Contact Referred To Contact Pending Review Diagnoses Muscle spasm YosefSubhash DO [facility] [place] [address] Status Reason Specialty Diagnoses / Procedures Referred By Contact Referred To Contact Authorized General Surgery Diagnoses Mass of subcutaneous tissue of back Subhash Navas [facility] [place] [address] Bridgette Strickland, DO [address] [facility] [address] [place] [address] Status Reason Specialty Diagnoses / Procedures Referre d By Contact Referred To Contact Closed Diagnoses Muscle spasm Subhash Navas [facility] [place] [address] Specialty Diagnoses / Procedures Referred By Contac t Referred To Contact Diagnoses Muscle spasm Subhash Navas, DO [address] [address] Referral ID Status Reason Start Date Expiration Date V isits Requested Visits Authorized [id number] Pending Review 1 1 Specialty Diagnoses / Procedures Referred By Contac t Referred To Contact CT IMAGING Diagnoses Mediastinal mass Other chest pain Procedures CT CHEST W IVCON DIAGNOSTIC COMPUTED TOMOGRAPHY THORAX W/CONTRAST Spencer Velarde, [address] [place] [address] [place] [address] Referral ID Status Reason Start Date Expiration Date V isits Requested Visits Authorized [id number] Closed Auto-Generate d Referral 02/14/2024 03/15/2025 1 1 Specialty Diagnoses / Procedures Referred By Contac t Referred To Contact CT IMAGING Diagnoses History of kidney cancer Metastasis to mediastinal lymph node (HCC) Procedures CT CHEST W IVCON DIAGNOSTIC COMPUTED TOMOGRAPHY THORAX W/CONTRAST Spencer Velarde, [address] [facility] [address] [place] [address] Referral ID Status Reason Start Date Expiration Date Visits Requested Visits Authorized [id number] Authorized Auto-Generat ed Referral 03/19/2024 04/18/2025 1 1 Specialty Diagnoses / Procedures Referred By Contac t Referred To Contact Diagnoses Metastasis to mediastinal lymph node (HCC) Procedures CT SIM PLANNING RADIATION ONCOLOGY THER RAD SIMULAJ-AIDED FIELD SETTING COMPLEX Aguilar Nava MD [address] [place] [address] Referral ID Status Reason Start Date Expiration Date Visits Requested Visits Authorized [id number] New Request PCP Requested Referral 06/25/2024 1 1 Specialty Diagnoses / Procedures Referred By Contac t Referred To Contact CT IMAGING Diagnoses Metastasis to mediastinal lymph node (HCC) History of kidney cancer Procedures CT CHEST W IVCON DIAGNOSTIC COMPUTED TOMOGRAPHY THORAX W/CONTRAST Spencer Velarde, DO [address] [place] [address] [place] [address] Referral ID Status Reason Start Date Expiration Date Visits Requested Visits Authorized [id number] New Request Auto-Generat ed Referral 05/20/2024 06/19/2025 1 1 Discharge Instructions * Attachments The following attachments cannot be sent through Care Everywhere. * Diarrhea (Sami) in this encounter Chief Complaint and Reason for Visit Chief Complaint OPTIC ATROPHY LT EYE , R/O COMPTRESSIVE LESION Chief Complaint Muscle Spasms Chief Complaint Muscle Spasms back Chief Complaint Back Health Concerns Infection Onset Date Last Indicated Resolved Time COVID-19 Rule-Out 12/17/2022 12/17/2022 Infection Onset Date Last Indicated Resolved Time COVID-19 Rule-Out 12/17/2022 12/17/2022 12/18/2022 2:51 AM EDT Additional Source Comments INFORMATION SOURCE (unrecogn ized section and content) DATE CREATED AUTHOR 10/08/2017 [facility] DATE CREATED AUTHOR AUTHOR'S ORGANIZ ATION 10/09/2017 [facility] DATE CREATED AUTHOR AUTHOR'S ORGANIZ ATION 05/08/2020 [facility] DATE CREATED AUTHOR AUTHOR'S ORGANIZ ATION 05/16/2021 [facility] DATE CREATED AUTHOR AUTHOR'S ORGANIZ ATION 09/30/2022 [facility] DATE CREATED AUTHOR AUTHOR'S ORGANIZ ATION 04/26/2023 [facility] DATE CREATED AUTHOR AUTHOR'S ORGANIZ ATION 02/22/2024 [facility] DATE CREATED AUTHOR AUTHOR'S ORGANIZ ATION 11/20/2024 [facility] DATE CREATED AUTHOR AUTHOR'S ORGANIZ ATION 02/16/2025 [facility] Reason for Visit (unrecogniz ed section and content) Reason Comments Follow-up Flu Vaccine Reason Comments Cough Generalized Body Aches x 1 week, went to [place] and had a terrible times Ear Fullness Status Reason Specialty Diagnoses / Procedures Referred By Contact Referred To Contact Pending Review Radiology Diagnoses Screening mammogram, encounter for Procedures Mammography Screening Bilateral Subhash Navas, [address] [facility] [address] [place] [address] Reason Comments Hypertension Hyperlipidemia Anxiety Reason Comments Diarrhea Reason Comments ED Follow-up Reason Comments Cough Pt cannot nohemi down w ithout coughing Diarrhea pt diarrhea and vomi ting has settled down, still with cough , Reason Comments Diarrhea Pt is scared to eat anything, Fall Risk Screening Reason Comments Depression Anxiety Hyperlipidemia Hypertension Reason Comments Rash Pt is much better Hypertension Hyperlipidemia Anxiety Reason Comments Hypertension Hyperlipidemia Anxiety Reason Comments Pre-op Exam PAT Reason Comments Eczema Around outside of ea rs, very itchy Medication Refill Fall Risk Screening Reason Onset Date Comments Medicare Wellness Visit Fall Risk Screening 08/15/2020 Reason Onset Date Comments [facility] RE[facility] [employer] 09/05/2020 Reason Comments Cyst ? Lipoma on upper le ft back Anxiety Pt is moving and is very stressful Reason Comments Consult Mass of subcutaneous tissue of back, Dr. Navas referral Status Reason Specialty Diagnoses / Procedures Referred By Contact Referred To Contact Closed General Surgery Diagnoses Mass of subcutaneous tissue of back Subhash Navas, DO [address] [facility] [address] [place] [address] Bridgette Strickland, DO [address] [facility] [address] [place] [address] Reason Onset Date Comments Medication Refill 12/01/2020 Reason Comments Procedure Office excision mass left side of back Reason Comments Allergies Asthma Excerbated, wheesing , hard time breathing Hypertension Depression Reason Onset Date Comments Medication Refill 09/25/2021 Reason Comments Follow-up Gap Closure (Health Maintenance) There a re no preventive care reminders to display for this patient. ( Colonoscopy to date) Mammogram refuses at this time Reason Comments Nasal Congestion drainage, lots of mu cous, chills, and fever x 5 days Reason Comments Results Reason Onset Date Comments Medication Refill 04/04/2023 Reason Onset Date Comments Medication Refill 04/23/2023 Reason Comments Back Pain lower right back ed n x 5 days Reason Comments New Nail Fungus Reason Comments New Patient Back Pain Mid to lower left si de Reason Comments Cough Chest congestion, SO B, wheezing, sore throat x 2 week Rash On Neck and up to ea rs x 2 weeks Reason Comments New Patient Hospital F/U Reason Comments New Patient Evaluation Reason Comments Radiology CT Specialty Diagnoses / Procedures Referred By Contac t Referred To Contact CT IMAGING Diagnoses Mediastinal mass Other chest pain Procedures CT CHEST W IVCON DIAGNOSTIC COMPUTED TOMOGRAPHY THORAX W/CONTRAST Spencer Velarde, DO [address] [facility] [address] [place] [address] Referral ID Status Reason Start Date Expiration Date V isits Requested Visits Authorized [id number] Closed Auto-Generate d Referral 02/14/2024 03/15/2025 1 1 Reason Onset Date Comments Bronchoscopy Scheduling- CLEARED 02/18/2024 Initial Bronch Request Reason Comments Appointment PreOp Bronch Reason Comments New Patient Reason Comments Establish Care Reason Comments Established Patient Reason Comments Consult Reason Onset Date Comments Simulation Request Form 03/27/2024 Reason Comments Patient Education Reason Comments Radiotherapy On-treatment Visit Specialty Diagnoses / Procedures [facility] Diagnoses History of kidney cancer Metastasis to mediastinal lymph node (HCC) Procedures CT CHEST W IVCON DIAGNOSTIC COMPUTED TOMOGRAPHY THORAX W/CONTRAST Spencer Velarde, DO [address] [facility] [place] [address] Ct Imaging [facility] Referral ID Status Reason Start Date Expiration Date Visits Requested Visits Authorized [id number] Authorized Auto-Generat ed Referral 4 07/07/2024 2 2 Reason Comments Appointment Reason Comments Radiology CT Specialty Diagnoses / Procedures [facility] Diagnoses History of kidney cancer Metastasis to mediastinal lymph node (HCC) Procedures CT CHEST W IVCON DIAGNOSTIC COMPUTED TOMOGRAPHY THORAX W/CONTRAST Spencer Velarde, DO [address] [facility] [place] [address] Phone: tel: fax: CT IMAGING [facility] Referral ID Status Reason Start Date Expiration Date Visits Requested Visits Authorized [id number] Authorized Auto-Generat ed Referral 4 07/07/2024 2 2 Reason Comments Forms Reason Comments Established Patient Reason Comments Recheck Reason Comments Follow Up 6 week for anxiety Reason Comments Cough Reason Comments Patient Update Reason Comments Headache X2 days Reason Comments Headache [place] and sinus and con gestion x 2 days Reason Onset Date Comments Population Health Navigation Outreach 10/28/2024 [employer] [place] Reason Onset Date Comments SPP Oral Oncology/hematology - Treatment Referra l 11/25/2024 [employer] Insurance Authorization 11/25/2024 Pending AVELINO Reason Comments Medicare Wellness Exam Reason Comments [employer] Manager - Other Chemo education Reason Comments First Time Treatment Education Keytruda/ [employer] Reason Onset Date Comments Allied Health Visit 12/22/2024 Medication A dherence Outreach Reason Onset Date Comments Refill Request 12/22/2024 Reason Comments AVS 11/25 Reason Comments Appointment Patient Update Reason Comments [employer] Manager - Other Antiemetic Velvet Santo RN - 05/30/2018 9:36 PM Velvet Sierra RN - 05/30/2018 6:51 PM Afshan Newton PA-C - 05/30/2018 6:50 PM Velvet Sierra RN - 05/30/2018 5:59 PM EST ED Notes (unrecognized secti on and content) Pt to ct Bedside commode placed in room. Pt made aware that we need a urine sample from her. Denies need to void at this time [facility] ED JOEY Note: NAME: Deangelo Beach 78 y.o. CSN: [id number] PCP: Subhash Navas DO History: Chief Complaint: Diarrhea HPI: The history was obtained from the patient. Deangelo is a 78 y.o. female who presents with a chief complaint of Diarrhea. Patient states yesterday evening she developed diarrhea. She states she had multiple episodes yesterday. Of note she also states last night she stood up too fast and got dizzy and started to fall- denies falling to ground, hitting head, LOC. She states diarrhea has continued today- last episode just prior to calling squad and coming to ED. She states she has had over 10 episodes of diarrhea today- brown in color, no blood or pus noted. She states going to the bathroom so often is causing lower abdominal cramping. She denies sick contacts. Denies recent antibiotic use. Patient denies dysuria, hematuria, frequency, urgency,pelvic pain/pressure, nausea, vomiting, hematemesis, hematochezia, melena, fever, chills, rashes, lymphadenopathy. PMHx: Past Medical History: Diagnosis Date Acute bronchospasm Allergy Anxiety Asthma Cancer (HCC) kidney Cat allergies Cephalgia Colon polyp Contusion, chest wall Diarrhea Diverticular disease Eczema Essential hypertension 01/26/2016 Fatigue Hyperlipidemia Hypertension IBS (irritable bowel syndrome) Inflammatory bowel disease Kidney disease kidney anomaly Multiple contusions of trunk Osteopenia Otitis media Rash Rhinitis due to pollen Sleep disturbance Sprain of left knee Thyromegaly PMSx: Past Surgical History: Procedure Laterality Date CYSTO URETERAL STENT PLACEMENT N/A 09/25/2016 Procedure: Flexible cystoscopy, left retrograde pyelogram with ureteral stent placement, 6F x 26cm. Fluoroscopy time <1 hour with interpretation of images.; Surgeon: Angelica Torrez MD; Location: Main OR; Service: CYSTO URETEROSCOPY Left 11/07/2016 Procedure: CYSTOSCOPY WITH LEFT URETEROSCOPY W/ LITHOTRIPSY AND LEFT STENT REMOVAL POSSIBLE LEFT STENT PLACEMENT; Surgeon: Luisana Ram MD; Location: [facility] Main OR; Service: EGD N/A 11/11/2015 Procedure: EGD; Surgeon: Gold Hope MD; Location: Endo; Service: HYSTERECTOMY N/A 1982 NEPHRECTOMY Right 2010 NEPHRECTOMY Right FAM. Hx: Family History Problem Relation Age of Onset Hypertension Father Heart attack Father Hyperlipidemia Brother Hyperlipidemia Sister SOC. Hx: Social History Socioeconomic History Marital status: Single Spouse name: Not on file Number of children: Not on file Years of education: Not on file Highest education level: Not on file Social Needs Financial resource strain: Not on file Food insecurity - worry: Not on file Food insecurity - inability: Not on file Transportation needs - medical: Not on file Transportation needs - non-medical: Not on file Occupational History Not on file Tobacco Use Smoking status: Never Smoker Smokeless tobacco: Never Used Substance and Sexual Activity Alcohol use: No Drug use: No Sexual activity: Never Other Topics Concern Not on file Social History Narrative Not on file MEDs: Previous Medications Medication Sig albuterol (PROAIR HFA) 90 mcg/actuation inhaler Inhale 2 puffs every 4 (four) hours as needed for wheezing. chlorzoxazone (PARAFON FORTE) 500 mg tablet Take 1 (one) tablet (500 mg total) by mouth 3 (three) times a day as needed for muscle spasms . clobetasol (TEMOVATE) 0.05 % cream Mix with 12 oz jar of CeraVe ointment and apply twice daily. fluocinonide (LIDEX) 0.05 % external solution Apply topically 2 (two) times a day . ketoconazole (NIZORAL) 2 % shampoo Apply topically twice weekly Start: 02/27/18. metoprolol succinate (TOPROL-XL) 25 MG 24 hr tablet Take 0.5 (one-half) tablet (12.5 mg total) by mouth daily . PARoxetine (PAXIL) 40 MG tablet Take 1 (one) tablet (40 mg total) by mouth daily . pravastatin (PRAVACHOL) 40 MG tablet Take 1 (one) tablet (40 mg total) by mouth nightly . ALL: Allergies Allergen Reactions Alendronate GI Intolerance Severe GERD Mqimjsd-Gyl-Ksh Reductase Inhibitors Zocor [Simvastatin] Latex Rash ROS: Review of Systems Positives and pertinent negatives as per HPI. All other systems were reviewed and are negative. Physical Exam: Patient Vitals for the past 24 hrs: BP Temp Temp src Pulse Resp SpO2 Height Weight 05/30/18 2230 (!) 117/56 (!) 100 90 % 05/30/18 2130 115/64 (!) 100 91 % 05/30/18 2030 137/62 (!) 102 90 % 05/30/181999 (!) 120/59 (!) 103 94 % 05/30/18 1930 (!) 109/58 (!) 113 95 % 05/30/18 1900 123/83 (!) 126 92 % 05/30/18 1801 (!) 169/90 98.2 F (36.8 C) Oral (!) 129 18 93 % 5' 6 70.3 kg (155 lb) Physical Exam Constitutional: She is oriented to person, place, and time. Vital signs are normal. She appears well-developed and well-nourished. Non-toxic appearance. She does not have a sickly appearance. She does not appear ill. No distress. HENT: Head: Normocephalic and atraumatic. Eyes: Conjunctivae and EOM are normal. Neck: Normal range of motion. Neck supple. Cardiovascular: Normal rate, regular rhythm and normal heart sounds. Pulmonary/Chest: Effort normal and breath sounds normal. No respiratory distress. She has no wheezes. She has no rales. Abdominal: Soft. Normal appearance. There is tenderness. There is no rigidity, no rebound and no guarding. Neurological: She is alert and oriented to person, place, and time. Skin: Skin is warm and dry. She is not diaphoretic. Psychiatric: She has a normal mood and affect. Her behavior is normal. Nursing note and vitals reviewed. Laboratory & Radiological Imaging (if done): Labs Reviewed COMPREHENSIVE METABOLIC PANEL - Abnormal; Notable for the following components: Result Value Sodium 131 (*) Chloride 95 (*) Bicarbonate 20 (*) Glucose 107 (*) eGFR 45 (*) All other components within normal limits Narrative: The eGFR should be used for monitoring renal function only and not for medication dosing. URINALYSIS - Abnormal; Notable for the following components: Color, Urine Heidi (*) Clarity, Urine Cloudy (*) Specific Ariton 1.028 (*) Protein, Urine 100 (*) Ketones, Urine 20 (*) Urobilinogen, Urine >=4.0 (*) Blood, Urine Small (*) Leukocyte Esterase, Urine Small (*) Bacteria, Urine Few (*) Renal Epithelial <1 (*) All other components within normal limits Narrative: Microscopic examination is performed on all urinalysis samples and only positive findings are reported. The test for blood on the chemical analytic portion of urinalysis may also be positive due to hemoglobinuria and myoglobinuria and if red blood cells are present they are quantified by microscopic examination. CBC WITH AUTO DIFFERENTIAL - Abnormal; Notable for the following components: RBC 5.73 (*) Hemoglobin 17.7 (*) Hematocrit 52.1 (*) Monocytes Abs 0.93 (*) All other components within normal limits LIPASE - Normal LACTIC ACID, PLASMA - Normal CLOSTRIDIUM DIFFICILE TOXIN PCR STOOL/GI PCR PANEL GRAM STAIN CBC AND DIFFERENTIAL Narrative: The following orders were created for panel order CBC w/ Diff. Procedure Abnormality Status --------- ------ CBC Auto Differential[[id number]] Abnormal Final result Please view results for these tests on the individual orders. CT Abdomen Pelvis Without Contrast Non-public Result No bowel obstruction. Unremarkable appendix. Mild fluid-filled appearance of the small bowel and colon without evidence of dilated loops as can be seen with a diarrheal illness. A mild enterocolitis cannot be entirely excluded. Cholelithiasis. Probable small left parapelvic renal cysts without evidence of discrete hydronephrosis. The right kidney is absent. Status post hysterectomy. Stable 1.7 cm left adnexal cystic structure. Workstation ID: [id number] Procedures: Clinical Impression: SNOMED CT(R) 1. Diarrhea, unspecified type DIARRHEA Patient is a 78 year old female with a PMH of right nephrectomy, IBS, presenting to ED with a chief complaint of diarrhea. Patient appears to be in no acute distress. On arrival patient is tacycardic at 129. She is afebrile. Exam as noted above- she has mild generalized abdominal tenderness. Non peritoneal abdomen. Mucus membranes are moist. EKG sinus tachycardia. Sodium decreased to 131. eGFR of 45. No leukocytosis. Lactate is normal. She has not had further bowel movements in ED. She was given bentyl and 1L NS in ED with significant relief of abdominal symptoms and remained comfortable during visit. On multiple rechecks abdomen is benign and nontender. Given well appearance, CT without acute findings, and no further bowel movements patient appears stable for discharge. She was given strict return precautions regarding any continued diarrhea or symptoms such as weakness, dizziness, fatigue, decreased PO intake, fevers. She is also to return if any other concerning symptoms. She voices understanding of this. Deangelo Beach (or their surrogate) and I have discussed the diagnosis and risks, and we agree with discharging home with close follow-up. We also discussed returning to the Emergency Department immediately if new or worsening symptoms occur. We have discussed the symptoms which are most concerning that necessitate immediate return. Disposition: Patient is being discharge home. Pt home in stable condition. Dr. Thomas also evaluated patient and was available for immediate consultation throughout the duration of this patient's visit. Patient verbalizes understanding and agrees with the treatment plan. Side effects and risks were discussed. Pt to return to the ED if new symptoms develop or if current symptoms worsen. All findings, follow-up plans, possible risks and complications were discussed with the patient and family. The patient voiced understanding and is in agreement. Pt does not have any further questions at this time. Patient ambulated from the emergency department without difficulty or assistance in good condition. New Prescriptions dicyclomine (BENTYL) 10 MG capsule Take 1 (one) capsule (10 mg total) by mouth 4 (four) times a day before meals and nightly for 10 days . Afshan Martinez PA-C ED Advanced Practice Provider [facility] Emergency Department (Please note that portions of this note have been completed with a voice recognition software. Efforts were made to correct any errors, but occasionally words are mis-transcribed.) Afshan Tamayo PA-C 05/30/18 9740 Pt arrives via EMS 31. Pt States that she called EMS due to having brown colored diarrhea onset 1899.. Pt is tearful in triage. Pt denies being around recent sick contacts. Pt states unable to eat. Pt denies CP at the time. States that pt fell last night due to feeling dizzy. Denies LOC or hitting her head or being on blood thinners.. Pt is anxious in triage. A&ox3. Pt states abd cramping. Skin dry. Dr hendrickson at bedside in triage. Bed: 27 Expected date: Expected time: Means of arrival: Comments: Medic 31 in this encounter ED Attestation Note - Angelica Thomas, - 05/30/2018 7:51 PM ESTED Procedure Note - Mike Villanueva DO - 05/30/2018 6:51 PM EST Miscellaneous Notes (unrecog nized section and content) ED Attestation: I have reviewed the Resident or JOEY's documentation, personally taken the patient's history, performed an exam and agree with the physical findings, clinical impression and management plan with the noted exceptions. I reviewed all Labs, imagine studies and EKG's. I was physically present in the department and supervised all procedures performed by the Resident. HPI: Patient is a 78-year-old female who presents to emergency department today with a chief complaint of voluminous diarrhea. Notes that she is been having voluminous amounts of diarrhea for the past 24 hours and over that time she had intermittent crampy lower abdominal pain. Patient notes that since then she has had one episode where she felt after feeling dizzy and dehydrated. She denies LOC, hitting her head, blood thinners. She denies fever, chills, night sweats, chest pain, shortness of breath, painful urination, increased frequency. Denies recent travel, trauma or surgery prior to that episode of the sickness or illness denies sick contacts. She specifically denies taking any antibiotics in the last 6 months. BP 137/62 Pulse (!) 102 Temp 98.2 F (36.8 C) (Oral) Resp 18 Ht 5' 6 Wt 70.3 kg (155 lb) SpO2 90% BMI 25.02 kg/m Physical Exam: Patient is in no acute distress, chest is nontender, lungs are clear to auscultation, heart sounds are regular rate and rhythm upon my evaluation. Her abdomen is diffusely tender without guarding rigidity or distention. She is alert and oriented x3, speech is normal, moves all 4 extremities without difficulty. Has no rashes bruises or abrasions. Medications sodium chloride (PF) (NS) flush 5 mL (not administered) dicyclomine (BENTYL) capsule 10 mg (10 mg Oral Given 05/30/181947) sodium chloride 0.9% (NS) bolus 1,000 mL (0 mL Intravenous Stopped 05/30/181947) Labs Reviewed COMPREHENSIVE METABOLIC PANEL - Abnormal; Notable for the following components: Result Value Sodium 131 (*) Chloride 95 (*) Bicarbonate 20 (*) Glucose 107 (*) eGFR 45 (*) All other components within normal limits Narrative: The eGFR should be used for monitoring renal function only and not for medication dosing. URINALYSIS - Abnormal; Notable for the following components: Color, Urine Heidi (*) Clarity, Urine Cloudy (*) Specific Ariton 1.028 (*) Protein, Urine 100 (*) Ketones, Urine 20 (*) Urobilinogen, Urine >=4.0 (*) Blood, Urine Small (*) Leukocyte Esterase, Urine Small (*) Bacteria, Urine Few (*) Renal Epithelial <1 (*) All other components within normal limits Narrative: Microscopic examination is performed on all urinalysis samples and only positive findings are reported. The test for blood on the chemical analytic portion of urinalysis may also be positive due to hemoglobinuria and myoglobinuria and if red blood cells are present they are quantified by microscopic examination. CBC WITH AUTO DIFFERENTIAL - Abnormal; Notable for the following components: RBC 5.73 (*) Hemoglobin 17.7 (*) Hematocrit 52.1 (*) Monocytes Abs 0.93 (*) All other components within normal limits LIPASE - Normal LACTIC ACID, PLASMA - Normal CLOSTRIDIUM DIFFICILE TOXIN PCR STOOL/GI PCR PANEL GRAM STAIN CBC AND DIFFERENTIAL Narrative: The following orders were created for panel order CBC w/ Diff. Procedure Abnormality Status --------- ------ CBC Auto Differential[[id number]] Abnormal Final result Please view results for these tests on the individual orders. CT Abdomen Pelvis Without Contrast (Results Pending) Assessment/Plan: Patient presents to emergency department with voluminous diarrhea and abdominal pain. She underwent evaluation of a possible diverticulitis. This will include laboratory studies as well as a CAT scan. Should be symptomatically treated while here. Further intervention and testing with pending the above results couple of patient reevaluation. Critical Care time: Except for billable procedures is 0 minutes Angelica Thomas DO Attending Physician Emergency Medicine (Please note that portions of this note may have been completed with a voice recognition program. Efforts were made to edit the dictations but occasionally words are mis-transcribed.) Associated Order(s): EKG 12-lead EKG 12-lead Date/Time: 05/30/2018 6:51 PM Performed by: Mike Villanueva DO Authorized by: Angelica Thomas DO BPM: 126 Comments: Sinus tachycardia. Ventricular rate 126, ID interval 160, QRS duration 76, QT/QTc 302/437. No obvious ischemic changes. Nonspecific EKG. in this encounter Care Teams (unrecognized sec tion and content) Production Welding Supervisor Relationship Specialty Start Date End Date Subhash Navas DO [address] [facility] [address] [place] [address] PCP - General 11/21/10 Subhash Navas, DO [address] [place] [address] PCP - LEYDA Attributed Provider - [employer] 08/12/18 Subhash Navas, DO [address] [place] [address] LEYDA Attributed Provider - Family Medicine Family Medicine 04/21/18 Production Welding Supervisor Relationship Specialty Start Date End Date Yosef Subhash Tellez, DO [address] [place] [address] PCP - General 11/21/10 Yosef Subhash Tellez, DO [address] [facility] [address] [place] [address] PCP - LEYDA Attributed Provider - [employer] 08/12/18 Yosef Subhash Tellez, DO [address] [facility] [address] [place] [address] LEYDA Attributed Provider - Family Medicine Family Medicine 04/21/18 Production Welding Supervisor Relationship Specialty Start Date End Date Yosef Subhash Tellez, DO [address] [facility] [address] [place] [address] PCP - General 11/21/10 Yosef Subhash Perryony, DO [address] [place] [address] PCP - LEYDA Attributed Provider - [employer] 08/12/18 Yosef Subhash Perryony, DO [address] [place] [address] LEYDA Attributed Provider - Family Medicine Family Medicine 04/21/18 Production Welding Supervisor Relationship Specialty Start Date End Date Yosef Subhash Perryony, DO [address] [facility] [address] [place] [address] PCP - LEYDA Attributed Provider - [employer] Medicare 06/13/18 04/14/50 Luisana Ram MD [address] [facility] [place] [address] PCP - General Urologic Surgery 04/24/21 Subhash Navas, DO [address] [facility] [address] [place] [address] LEYDA Attributed Provider - Family Medicine Family Medicine 04/21/18 Production Welding Supervisor Relationship Specialty Start Date End Date Subhash Navas, DO [address] [address] PCP - LEYDA Attributed Provider - [employer] 06/13/18 04/14/50 Subhash Navas, DO [address] [address] PCP - General Family Medicine 09/19/21 Subhash Navas, DO [address] [address] LEYDA Attributed Provider - Family Medicine Family Medicine 04/21/18 Production Welding Supervisor Relationship Specialty Start Date End Date Subhash Navas, DO [address] [address] PCP - LEYDA Attributed Provider - [employer] 06/13/18 04/14/50 Subhash Navas, DO [address] [address] PCP - General Family Medicine 09/19/21 Subhash Navas, DO [address] [address] LEYDA Attributed Provider - Family Medicine Family Medicine 04/21/18 Team Status: Inactive Member Role Status Dates Dr. Matheus Rodriguez MD Attending Provider Active Production Welding Supervisor Relationship Specialty Start Date End Date Subhash Navas DO [facility] [address] PCP - LEYDA Attributed Provider - [employer] 06/13/18 04/14/50 Subhash Navas DO [facility] [address] [address] PCP - General Family Medicine 09/19/21 Team Status: Active Member Role Status Dates No Primary Care Physician Primary Care Provider Active Team Status: Inactive Member Role Status Dates Dr. Eligio Robledo MD Emergency Provider Active No Primary Care Physician Primary Care Provider Active Team Status: Inactive Member Role Status Dates Dr. Eligio Robledo MD Attending Provider, Emergency Pro vider Active No Primary Care Physician Primary Care Provider Active Team Status: Inactive Member Role Status Dates No Primary Care Physician Primary Care Provider Active Dr. Mark Hodge MD Emergency Provider Active Production Welding Supervisor Relationship Specialty Start Date End Date Subhash Navas DO [address] [place] [address] PCP - LEYDA Attributed Provider - [employer] 06/13/18 04/14/50 Subhash Navas DO [facility] [address] [address] PCP - General Family Medicine 09/19/21 Production Welding Supervisor Relationship Specialty Start Date End Date Subhash Navas DO [facility] [address] [address] PCP - LEYDA Attributed Provider - [employer] 06/13/18 04/14/50 Subhash Navas DO [address] [place] [address] PCP - General Family Medicine 09/19/21 Production Welding Supervisor Relationship Specialty Start Date End Date Subhash Navas DO [address] [place] [address] PCP - General Family Medicine 07/30/23 Team Status: Active Member Role Status Dates SUBHASH NAVAS Primary Care Provider Active Team Status: Inactive Member Role Status Dates Dr. Gary Joyner , Emergency Provider Active YOSEF RIVERA Primary Care Provider Active Production Welding Supervisor Relationship Specialty Start Date End Date Subhash Navas DO [address] [place] [address] PCP - General Family Medicine 07/30/23 Production Welding Supervisor Relationship Specialty Start Date End Date Subhash Navas DO [address] [place] [address] PCP - General Family Medicine 07/30/23 Production Welding Supervisor Relationship Specialty Start Date End Date Subhash Navas DO [address] [place] [address] PCP - General Family Medicine 07/30/23 Production Welding Supervisor Relationship Specialty Start Date End Date Subhash Navas DO [address] [place] [address] PCP - General Family Medicine 07/30/23 Production Welding Supervisor Relationship Specialty Start Date End Date Solis Lambert MD [address] [place] [address] PCP - General Family Medicine 02/14/24 Production Welding Supervisor Relationship Specialty Start Date End Date Solis Lambert MD [address] [place] [address] PCP - General Family Medicine 02/14/24 Production Welding Supervisor Relationship Specialty Start Date End Date Solis Lambert MD [address] [place] [address] PCP - General Family Medicine 02/14/24 Production Welding Supervisor Relationship Specialty Start Date End Date Solis Lambert MD [address] [place] [address] PCP - General Family Medicine 02/14/24 Production Welding Supervisor Relationship Specialty Start Date End Date Solis Lambert MD [address] [place] [address] PCP - General Family Medicine 02/14/24 Production Welding Supervisor Relationship Specialty Start Date End Date Solis Lambert MD [address] [place] [address] PCP - General Family Medicine 02/14/24 Production Welding Supervisor Relationship Specialty Start Date End Date Solis Lambert MD [address] [place] [address] PCP - General Family Medicine 02/14/24 Production Welding Supervisor Relationship Specialty Start Date End Date Solis Lambert MD [address] [place] [address] PCP - General Family Medicine 02/14/24 Production Welding Supervisor Relationship Specialty Start Date End Date Solis Lambert MD [address] [place] [address] PCP - General Family Medicine 02/14/24 Podlogar, PAPI De PazN.STACK CLERK [address] [facility] [place] [address] Senior Medical Director Family Medicine 03/21/24 Production Welding Supervisor Relationship Specialty Start Date End Date Solis Lambert MD [address] [facility] [place] [address] PCP - General Family Medicine 02/14/24 Podlogar, CONCHIS De Paz.STACK CLERK [address] [facility] [place] [address] Senior Medical Director Family Medicine 03/21/24 Production Welding Supervisor Relationship Specialty Start Date End Date Solis Lambert MD [address] [facility] [place] [address] PCP - General Family Medicine 02/14/24 Podlogar, Zandra, MANAGER OF DRILLING.STACK CLERK [address] [facility] [place] [address] Senior Medical Director Family [facility] 03/21/24 Production Welding Supervisor Relationship Specialty Start Date End Date Solis Lambert MD [address] [facility] [place] [address] PCP - General Family Medicine 02/14/24 Podlogar, Zandra, MANAGER OF DRILLING.STACK CLERK [address] [facility] [place] [address] [facility] Production Welding Supervisor Relationship Specialty Start Date End Date Solis Lambert MD [address] [place] [address] PCP - General Family Medicine 02/14/24 Podlogar, PAPI De PazN.STACK CLERK [address] [facility] [place] [address] [facility] 03/21/24 Production Welding Supervisor Relationship Specialty Start Date End Date Solis Lambert MD [address] [facility] [place] [address] PCP - General Family Medicine 02/14/24 Podlogar, Zandra, MANAGER OF DRILLING.STACK CLERK [address] [facility] [place] [address] [facility] 03/21/24 Production Welding Supervisor Relationship Specialty Start Date End Date Solis Lambert MD [address] [place] [address] PCP - General Family Medicine 02/14/24 Podlogar, Zandra, MANAGER OF DRILLING.STACK CLERK [address] [facility] [place] [place] [address] [facility] 03/21/24 Production Welding Supervisor Relationship Specialty Start Date End Date Solis Lambert MD [address] [facility] [place] [place] [address] PCP - General Family Medicine 02/14/24 Podlogar, Zandra, MANAGER OF DRILLING.STACK CLERK [address] [facility] [place] [place] [address] [facility] 03/21/24 Production Welding Supervisor Relationship Specialty Start Date End Date Solis Lambert MD [address] [place] [address] PCP - General Family Medicine 02/14/24 Podlogar, PAPI De PazN.STACK CLERK [address] [place] [address] [facility] 03/21/24 Production Welding Supervisor Relationship Specialty Start Date End Date Solis Lambert MD [address] [place] [address] PCP - General Family Medicine 02/14/24 Podlogar, CONCHIS De Paz.STACK CLERK [address] [place] [address] [facility] 03/21/24 Production Welding Supervisor Relationship Specialty Start Date End Date Solis Lambert MD [address] [place] [address] PCP - General Family Medicine 02/14/24 Podlogar, Zandra MANAGER OF DRILLING.STACK CLERK [address] [place] [address] [facility] 03/21/24 Production Welding Supervisor Relationship Specialty Start Date End Date Solis Lambert MD [address] [place] [address] PCP - General Family Medicine 02/14/24 Podlogar, Zandra, MANAGER OF DRILLING.STACK CLERK [address] [place] [address] [facility] 03/21/24 Production Welding Supervisor Relationship Specialty Start Date End Date Solis Lambert MD [address] [place] [address] PCP - General Family Medicine 02/14/24 Podlogar, CONCHIS De Paz.STACK CLERK [address] [place] [address] Senior Medical [facility] Production Welding Supervisor Relationship Specialty Start Date End Date Solis Lambert MD [address] [place] [address] PCP - General Family Medicine 02/14/24 Podlogar, CONCHIS De Paz.STACK CLERK [address] [place] [address] [facility]24 Production Welding Supervisor Relationship Specialty Start Date End Date Solis Lambert MD [address] [place] [address] PCP - General Family Medicine 02/14/24 Podlogar, CONCHIS De Paz.STACK CLERK [address] [place] [address] [facility]/24 Production Welding Supervisor Relationship Specialty Start Date End Date Solis Lambert MD [address] [place] [address] PCP - General Family Medicine 02/14/24 Podlogar, Zandra MANAGER OF DRILLING.STACK CLERK [address] [place] [address] [facility] 03/21/24 Sapna Cunningham, MANAGER OF DRILLING.STACK CLERK [address] [place] [address] [facility] 07/06/24 Production Welding Supervisor Relationship Specialty Start Date End Date Solis Lambert MD [address] [place] [address] PCP - General Family Medicine 02/14/24 Podlogar, Zandra, MANAGER OF DRILLING.STACK CLERK [address] [place] [address] [facility] 03/21/24 Sapna Cunningham MANAGER OF DRILLING.STACK CLERK [address] [place] [address] [facility] 07/06/24 Production Welding Supervisor Relationship Specialty Start Date End Date Solis Lambert MD [address] [place] [address] PCP - General Family Medicine 02/14/24 Podlogar, Zandra, MANAGER OF DRILLING.STACK CLERK [address] [place] [address] [facility] 03/21/24 Production Welding Supervisor Relationship Specialty Start Date End Date Solis Lambert MD [address] [place] [address] PCP - General Family Medicine 02/14/24 Podlogar, Zandra, MANAGER OF DRILLING.STACK CLERK [address] [place] [address] [facility] 03/21/24 Production Welding Supervisor Relationship Specialty Start Date End Date Solis Lambert MD [address] [place] [address] PCP - General Family Medicine 02/14/24 PodlogarZandra APRN.STACK CLERK [address] [place] [address] Senior Medical Director Family Medicine 03/21/24 Sapna Cunningham APRN.STACK CLERK [address] [facility] [place] [place] [address] Senior Medical Director Family Medicine 09/24/24 Production Welding Supervisor Relationship Specialty Start Date End Date Solis Lambert MD [address] [place] [address] PCP - General Family Medicine 02/14/24 PodlogarZandra APRN.STACK CLERK [address] [place] [address] Senior Medical Director Family Medicine 03/21/24 Sapna Cunningham APRN.STACK CLERK [address] [facility] [place] [address] Senior Medical Director Family Medicine 09/24/24 Production Welding Supervisor Relationship Specialty Start Date End Date Solis Lambert MD [address] [place] [address] PCP - General Family Medicine 02/14/24 PodlogarZandra APRN.STACK CLERK [address] [place] [address] Senior Medical Director Family Medicine 03/21/24 Sapna Cunningham APRN.STACK CLERK [address] [place] [address] Senior Medical Director Family Medicine 09/24/24 Production Welding Supervisor Relationship Specialty Start Date End Date Solis Lambert MD [address] [place], [place] [address] PCP - General Family Medicine 02/14/24 PodlogarZandra APRN.STACK CLERK [address] [place] [address] Senior Medical Director Family Medicine 03/21/24 Sapna Cunningham APRN.STACK CLERK [address] [place] [address] Senior Medical Director Family Medicine 09/24/24 Production Welding Supervisor Relationship Specialty Start Date End Date Solis Lambert MD [address] [place] [address] PCP - General Family Medicine 02/14/24 PodlogarZandra APRN.STACK CLERK [address] [place] [address] Senior Medical Director Family Medicine 03/21/24 Sapna Cunningham APRN.STACK CLERK [address] [place] [address] Senior Medical Director Family Medicine 09/24/24 Production Welding Supervisor Relationship Specialty Start Date End Date Solis Lambert MD [address] [place] [address] PCP - General Family Medicine 02/14/24 PodlogarZandra APRN.STACK CLERK [address] [place] [address] Senior Medical Director Family Medicine 03/21/24 Sapna Cunningham APRN.STACK CLERK [address] [facility] [place] [place] [address] Senior Medical Director Family Medicine 09/24/24 Heidi Klein RN Specialty Pai Gow Manager Oncology 12/07/24 Production Welding Supervisor Relationship Specialty Start Date End Date Solis Lambert MD [address] [place] [address] PCP - General Family Medicine 02/14/24 PodlogarZandra APRN.STACK CLERK [address] [place] [address] Senior Medical Director Family Medicine 03/21/24 Sapna Cunningham APRN.STACK CLERK [address] [place] [address], [place] [address] Senior Medical Director Family Medicine 09/24/24 Heidi Klein RN Specialty Pai Gow Manager Oncology 12/07/24 Production Welding Supervisor Relationship Specialty Start Date End Date Solis Lambert MD [address] [place] [address] PCP - General Family Medicine 02/14/24 PodlogarZandra MANAGER OF DRILLING.STACK CLERK [address] [place] [address] Senior Medical Director Family Medicine 03/21/24 Sapna Cunningham APRN.STACK CLERK [address] [facility] [place] [place] [address] Senior Medical Director Family Medicine 09/24/24 Heidi Klein RN Specialty Pai Gow Manager Oncology 12/07/24 Production Welding Supervisor Relationship Specialty Start Date End Date Soils Lambert MD [address] [place] [address] PCP - General Family Medicine 02/14/24 Podlogar, CONCHIS De Paz.STACK CLERK [address] [place] [address] [facility] 03/21/24 Sapna Cunningham MANAGER OF DRILLING.STACK CLERK [address] [place] [address] [facility] Family Medicine 09/24/24 Heidi Klein RN Specialty Pai Gow Manager Oncology 12/07/24 Production Welding Supervisor Relationship Specialty Start Date End Date Solis Lambert MD [address] [place] [address] PCP - General Family Medicine 02/14/24 Podlogar, Zandra, MANAGER OF DRILLING.STACK CLERK [address] [place] [address] [facility] 03/21/24 Sapna Cunningham MANAGER OF DRILLING.STACK CLERK [address] [place] [address] [facility] Medicine 09/24/24 Heidi Klein RN Specialty Pai Gow Manager Oncology 12/07/24 Production Welding Supervisor Relationship Specialty Start Date End Date Solis Lambert MD [address] [place] [address] PCP - General Family Medicine 02/14/24 Podlogar, Zandra, MANAGER OF DRILLING.STACK CLERK [address] [place] [address] Senior Medical Director Family [facility] 03/21/24 Sapna Cunningham APRN.STACK CLERK [address] [place] [address] Senior Medical Director Family Medicine 09/24/24 Heidi Klein RN Specialty Pai Gow Manager Oncology 12/07/24 Production Welding Supervisor Relationship Specialty Start Date End Date Solis Lambert MD [address] [place] [address] PCP - General Family Medicine 02/14/24 PodlogarZandra APRN.STACK CLERK [address] [place] [address] Senior Medical Director Family [facility] 03/21/24 Sapna Cunningham APRN.STACK CLERK [address] [place] [address] Senior Medical Director Family [facility] 09/24/24 Heidi Klein RN Specialty Pai Gow Manager Oncology 12/07/24 Spencer Velarde DO [address] [place] [address] Hematology/Oncology 12/25/24 Production Welding Supervisor Relationship Specialty Start Date End Date Solis Lambert MD [address] [place] [address] PCP - General Family Medicine 02/14/24 PodlogarZandra APRN.STACK CLERK [address] [place] [address] Senior Medical Director Family [facility] 03/21/24 Sapna Cunningham APRN.STACK CLERK [address] [place], [place] [address] Senior Medical Director Family Medicine 09/24/24 Heidi Klein, RN Specialty Pai Gow Manager Oncology 12/07/24 Spencer Velarde DO [address] [place] [address] Hematology/Oncology 12/25/24 Goals (unrecognized section and content) Goals may be documented in a n alternate sectionGoals may be documented in an alternate sectionGoals may be documented in an alternate sectionGoals may be documented in an alternate section Source Comments (unrecognize d section and content) In the event this informatio n is protected by the Federal Confidentiality of Alcohol and Drug Abuse Patient Records regulations: The Federal rules restrict any use of the information to criminally investigate or prosecute any alcohol or drug abuse patient.[facility] the event this information is protected by the Federal Confidentiality of Alcohol and Drug Abuse Patient Records regulations: The Federal rules restrict any use of the information to criminally investigate or prosecute any alcohol or drug abuse patient.[facility] HospitalIn the event this information is protected by the Federal Confidentiality of Alcohol and Drug Abuse Patient Records regulations: The Federal rules restrict any use of the information to criminally investigate or prosecute any alcohol or drug abuse patient.[facility] HospitalIn the event this information is protected by the Federal Confidentiality of Alcohol and Drug Abuse Patient Records regulations: The Federal rules restrict any use of the information to criminally investigate or prosecute any alcohol or drug abuse patient.[facility] HospitalIn the event this information is protected by the Federal Confidentiality of Alcohol and Drug Abuse Patient Records regulations: The Federal rules restrict any use of the information to criminally investigate or prosecute any alcohol or drug abuse patient.[facility] HospitalIn the event this information is protected by the Federal Confidentiality of Alcohol and Drug Abuse Patient Records regulations: The Federal rules restrict any use of the information to criminally investigate or prosecute any alcohol or drug abuse patient.[facility] HospitalIn the event this information is protected by the Federal Confidentiality of Alcohol and Drug Abuse Patient Records regulations: The Federal rules restrict any use of the information to criminally investigate or prosecute any alcohol or drug abuse patient.[facility] HospitalIn the event this information is protected by the Federal Confidentiality of Alcohol and Drug Abuse Patient Records regulations: The Federal rules restrict any use of the information to criminally investigate or prosecute any alcohol or drug abuse patient.[facility] HospitalIn the event this information is protected by the Federal Confidentiality of Alcohol and Drug Abuse Patient Records regulations: The Federal rules restrict any use of the information to criminally investigate or prosecute any alcohol or drug abuse patient.[facility] HospitalIn the event this information is protected by the Federal Confidentiality of Alcohol and Drug Abuse Patient Records regulations: The Federal rules restrict any use of the information to criminally investigate or prosecute any alcohol or drug abuse patient.[facility] HospitalIn the event this information is protected by the Federal Confidentiality of Alcohol and Drug Abuse Patient Records regulations: The Federal rules restrict any use of the information to criminally investigate or prosecute any alcohol or drug abuse patient.[facility] HospitalIn the event this information is protected by the Federal Confidentiality of Alcohol and Drug Abuse Patient Records regulations: The Federal rules restrict any use of the information to criminally investigate or prosecute any alcohol or drug abuse patient.[facility] HospitalIn the event this information is protected by the Federal Confidentiality of Alcohol and Drug Abuse Patient Records regulations: The Federal rules restrict any use of the information to criminally investigate or prosecute any alcohol or drug abuse patient.[facility] HospitalIn the event this information is protected by the Federal Confidentiality of Alcohol and Drug Abuse Patient Records regulations: The Federal rules restrict any use of the information to criminally investigate or prosecute any alcohol or drug abuse patient.[facility] HospitalIn the event this information is protected by the Federal Confidentiality of Alcohol and Drug Abuse Patient Records regulations: The Federal rules restrict any use of the information to criminally investigate or prosecute any alcohol or drug abuse patient.[facility] HospitalIn the event this information is protected by the Federal Confidentiality of Alcohol and Drug Abuse Patient Records regulations: The Federal rules restrict any use of the information to criminally investigate or prosecute any alcohol or drug abuse patient.[facility] HospitalIn the event this information is protected by the Federal Confidentiality of Alcohol and Drug Abuse Patient Records regulations: The Federal rules restrict any use of the information to criminally investigate or prosecute any alcohol or drug abuse patient.[facility] HospitalIn the event this information is protected by the Federal Confidentiality of Alcohol and Drug Abuse Patient Records regulations: The Federal rules restrict any use of the information to criminally investigate or prosecute any alcohol or drug abuse patient.[facility] HospitalIn the event this information is protected by the Federal Confidentiality of Alcohol and Drug Abuse Patient Records regulations: The Federal rules restrict any use of the information to criminally investigate or prosecute any alcohol or drug abuse patient.[facility] HospitalIn the event this information is protected by the Federal Confidentiality of Alcohol and Drug Abuse Patient Records regulations: The Federal rules restrict any use of the information to criminally investigate or prosecute any alcohol or drug abuse patient.[facility] HospitalIn the event this information is protected by the Federal Confidentiality of Alcohol and Drug Abuse Patient Records regulations: The Federal rules restrict any use of the information to criminally investigate or prosecute any alcohol or drug abuse patient.[facility] HospitalIn the event this information is protected by the Federal Confidentiality of Alcohol and Drug Abuse Patient Records regulations: The Federal rules restrict any use of the information to criminally investigate or prosecute any alcohol or drug abuse patient.[facility] HospitalIn the event this information is protected by the Federal Confidentiality of Alcohol and Drug Abuse Patient Records regulations: The Federal rules restrict any use of the information to criminally investigate or prosecute any alcohol or drug abuse patient.[facility] HospitalIn the event this information is protected by the Federal Confidentiality of Alcohol and Drug Abuse Patient Records regulations: The Federal rules restrict any use of the information to criminally investigate or prosecute any alcohol or drug abuse patient.[facility] HospitalIn the event this information is protected by the Federal Confidentiality of Alcohol and Drug Abuse Patient Records regulations: The Federal rules restrict any use of the information to criminally investigate or prosecute any alcohol or drug abuse patient.[facility] HospitalIn the event this information is protected by the Federal Confidentiality of Alcohol and Drug Abuse Patient Records regulations: The Federal rules restrict any use of the information to criminally investigate or prosecute any alcohol or drug abuse patient.[facility] HospitalIn the event this information is protected by the Federal Confidentiality of Alcohol and Drug Abuse Patient Records regulations: The Federal rules restrict any use of the information to criminally investigate or prosecute any alcohol or drug abuse patient.[facility] HospitalIn the event this information is protected by the Federal Confidentiality of Alcohol and Drug Abuse Patient Records regulations: The Federal rules restrict any use of the information to criminally investigate or prosecute any alcohol or drug abuse patient.[facility] HospitalIn the event this information is protected by the Federal Confidentiality of Alcohol and Drug Abuse Patient Records regulations: The Federal rules restrict any use of the information to criminally investigate or prosecute any alcohol or drug abuse patient.[facility] HospitalIn the event this information is protected by the Federal Confidentiality of Alcohol and Drug Abuse Patient Records regulations: The Federal rules restrict any use of the information to criminally investigate or prosecute any alcohol or drug abuse patient.[facility] HospitalIn the event this information is protected by the Federal Confidentiality of Alcohol and Drug Abuse Patient Records regulations: The Federal rules restrict any use of the information to criminally investigate or prosecute any alcohol or drug abuse patient.[facility] HospitalIn the event this information is protected by the Federal Confidentiality of Alcohol and Drug Abuse Patient Records regulations: The Federal rules restrict any use of the information to criminally investigate or prosecute any alcohol or drug abuse patient.[facility] HospitalIn the event this information is protected by the Federal Confidentiality of Alcohol and Drug Abuse Patient Records regulations: The Federal rules restrict any use of the information to criminally investigate or prosecute any alcohol or drug abuse patient.[facility] HospitalIn the event this information is protected by the Federal Confidentiality of Alcohol and Drug Abuse Patient Records regulations: The Federal rules restrict any use of the information to criminally investigate or prosecute any alcohol or drug abuse patient.[facility] HospitalIn the event this information is protected by the Federal Confidentiality of Alcohol and Drug Abuse Patient Records regulations: The Federal rules restrict any use of the information to criminally investigate or prosecute any alcohol or drug abuse patient.[facility] HospitalIn the event this information is protected by the Federal Confidentiality of Alcohol and Drug Abuse Patient Records regulations: The Federal rules restrict any use of the information to criminally investigate or prosecute any alcohol or drug abuse patient.[facility] HospitalIn the event this information is protected by the Federal Confidentiality of Alcohol and Drug Abuse Patient Records regulations: The Federal rules restrict any use of the information to criminally investigate or prosecute any alcohol or drug abuse patient.[facility] HospitalIn the event this information is protected by the Federal Confidentiality of Alcohol and Drug Abuse Patient Records regulations: The Federal rules restrict any use of the information to criminally investigate or prosecute any alcohol or drug abuse patient.[facility] HospitalIn the event this information is protected by the Federal Confidentiality of Alcohol and Drug Abuse Patient Records regulations: The Federal rules restrict any use of the information to criminally investigate or prosecute any alcohol or drug abuse patient.[facility] HospitalIn the event this information is protected by the Federal Confidentiality of Alcohol and Drug Abuse Patient Records regulations: The Federal rules restrict any use of the information to criminally investigate or prosecute any alcohol or drug abuse patient.[facility] HospitalIn the event this information is protected by the Federal Confidentiality of Alcohol and Drug Abuse Patient Records regulations: The Federal rules restrict any use of the information to criminally investigate or prosecute any alcohol or drug abuse patient.[facility] HospitalIn the event this information is protected by the Federal Confidentiality of Alcohol and Drug Abuse Patient Records regulations: The Federal rules restrict any use of the information to criminally investigate or prosecute any alcohol or drug abuse patient.[facility] the event this information is protected by the Federal Confidentiality of Alcohol and Drug Abuse Patient Records regulations: The Federal rules restrict any use of the information to criminally investigate or prosecute any alcohol or drug abuse patient.[facility] HospitalIn the event this information is protected by the Federal Confidentiality of Alcohol and Drug Abuse Patient Records regulations: The Federal rules restrict any use of the information to criminally investigate or prosecute any alcohol or drug abuse patient.[facility] HospitalIn the event this information is protected by the Federal Confidentiality of Alcohol and Drug Abuse Patient Records regulations: The Federal rules restrict any use of the information to criminally investigate or prosecute any alcohol or drug abuse patient.[facility]In the event this information is protected by the Federal Confidentiality of Alcohol and Drug Abuse Patient Records regulations: The Federal rules restrict any use of the information to criminally investigate or prosecute any alcohol or drug abuse patient.[facility] HospitalIn the event this information is protected by the Federal Confidentiality of Alcohol and Drug Abuse Patient Records regulations: The Federal rules restrict any use of the information to criminally investigate or prosecute any alcohol or drug abuse patient.[facility] HospitalIn the event this information is protected by the Federal Confidentiality of Alcohol and Drug Abuse Patient Records regulations: The Federal rules restrict any use of the information to criminally investigate or prosecute any alcohol or drug abuse patient.[facility] HospitalIn the event this information is protected by the Federal Confidentiality of Alcohol and Drug Abuse Patient Records regulations: The Federal rules restrict any use of the information to criminally investigate or prosecute any alcohol or drug abuse patient.[facility] HospitalIn the event this information is protected by the Federal Confidentiality of Alcohol and Drug Abuse Patient Records regulations: The Federal rules restrict any use of the information to criminally investigate or prosecute any alcohol or drug abuse patient.[facility] HospitalIn the event this information is protected by the Federal Confidentiality of Alcohol and Drug Abuse Patient Records regulations: The Federal rules restrict any use of the information to criminally investigate or prosecute any alcohol or drug abuse patient.[facility] HospitalIn the event this information is protected by the Federal Confidentiality of Alcohol and Drug Abuse Patient Records regulations: The Federal rules restrict any use of the information to criminally investigate or prosecute any alcohol or drug abuse patient.[facility] HospitalIn the event this information is protected by the Federal Confidentiality of Alcohol and Drug Abuse Patient Records regulations: The Federal rules restrict any use of the information to criminally investigate or prosecute any alcohol or drug abuse patient.[facility] HospitalIn the event this information is protected by the Federal Confidentiality of Alcohol and Drug Abuse Patient Records regulations: The Federal rules restrict any use of the information to criminally investigate or prosecute any alcohol or drug abuse patient.[facility] HospitalIn the event this information is protected by the Federal Confidentiality of Alcohol and Drug Abuse Patient Records regulations: The Federal rules restrict any use of the information to criminally investigate or prosecute any alcohol or drug abuse patient.[facility] HospitalIn the event this information is protected by the Federal Confidentiality of Alcohol and Drug Abuse Patient Records regulations: The Federal rules restrict any use of the information to criminally investigate or prosecute any alcohol or drug abuse patient.[facility] the event this information is protected by the Federal Confidentiality of Alcohol and Drug Abuse Patient Records regulations: The Federal rules restrict any use of the information to criminally investigate or prosecute any alcohol or drug abuse patient.[facility] FOR RECORDS PERTAINING TO PATIENTS WHO ARE OR HAVE BEEN ENROLLED IN A CHEMICAL DEPENDENCY/SUBSTANCEABUSE PROGRAM, SOME INFORMATION MAY BE OMITTED. This clinical summary was aggregated from multiple sources. Caution should be exercised in using it in the provision of clinical care. This summary normalizes information from multiple sources, and as a consequence, information in this document may materially change the coding, format and clinical context of patient data. In addition, data may be omitted in some cases. CLINICAL DECISIONS SHOULD BE BASED ON THE PRIMARY CLINICAL RECORDS. [facility] [employer] [facility]. provides no warranty or guarantee of the accuracy or completeness of information in this document.
[2025-03-21] MEDS: Orphenadrine 100 MG Tablet PO (22:56)
--- NOTE | 2025-03-21 23:15 | CT_ITS ---
PROCEDURE: CHEST WITHOUT CONTRAST 03/21/2025 REASON FOR EXAM: ? RIGHT 10-12 RIB FRACTURE TECHNIQUE: Chest CT without contrast. Coronal and Sagittal reconstruction series were provided. One or more dose reduction techniques were used (e.g., Automated exposure control, adjustment of the mA and/or kV according to patient size, use of iterative reconstruction technique RADIATION DOSE SUMMARY: CTDlvol: 8.7 mGy DLP: 3458.84 mGycm COMPARISON: 01.21.2024 FINDINGS: There are age indeterminate nondisplaced fractures seen along the anterior aspects of the right seventh, eighth and ninth ribs. There is interval decrease in size of the previously seen left lower lobe pulmonary nodule currently measures 3.5 mm in diameter compared to 6 mm in the prior study. There is interval decrease in size of the previously seen right paratracheal soft tissue nodule or olivia lesion currently measures 3.1 x 1.7 cm compared to 3.7 x 2.1 cm in the prior study. There is no focal infiltrate or consolidation. A few streaky opacities are present in both upper and right lower lobes , which may reflect subsegmental atelectasis and/or parenchymal scarring. There are no pleural effusions. No pneumothorax is seen. The thyroid is unremarkable. The central airways are patent. The chest wall appears unremarkable. No axillary adenopathy is identified. The thoracic aorta demonstrates atheromatous calcification. The heart and pulmonary arteries are of normal size and configuration. There are coronary artery calcifications. No pericardial effusion is identified. No aggressive-appearing osseous lesions are identified. Mild degenerative changes are present in the spine. The included abdominal cuts show cholelithiasis without cholecystitis and stable few left renal parapelvic cysts. CT/Chest without Contrast IMPRESSION: Age indeterminate nondisplaced fractures seen along the anterior aspects of the right seventh, eighth and ninth ribs. Interval decrease in size of the previously seen left lower lobe solid pulmonar y nodule currenlty measures 3.5 mm in diameter compared to 6 mm in the prior study, optional annual follow-up is recommened as per Fleischner criteria. There is interval decrease in size of the previously seen right paratracheal so ft tissue nodule or olivia lesion currently measures 3.1 x 1.7 cm compared to 3.7 x 2.1 cm in the prior study. No acute chest abnormalities detected. Reading [facility]
[2025-03-22 00:55] VITALS: BP 140/86; PULSE 83; RESP 16; O2SAT 95
--- NOTE | 2025-03-22 01:20 | EX.ED.DYSGE1 ---
HPI History of Present Illness Chief Complaint: Fall Informant: patient and family Narrative Narrative: Patient is an 85-year-old female with past medical history of hypertension and hyperlipidemia. She states on Saturday she slipped and fell in the snow and landed on her right side. She states that she did not strike her head or have loss of consciousness. She denies any history of bleeding disorder or blood thinner use. She states she was able to get back up and could perform her activities of daily living without issue. She states then she had another accidental fall today while in the house. She states she simply tripped and lost her balance and denies feeling lightheaded or dizzy or having syncopal event. She states after this issue however she had increased pain to the right rib cage and had difficulty getting up secondary to the pain. She was able to call her family and they were able to help her up but with concern for underlying injury she presents for evaluation [facility] Medical History Wears glasses Post-menopausal Lymph node enlargement Anxiety Bladder disease Anemia High cholesterol Back pain Difficulty swallowing History of GI bleed History of ulceration History of IBS Non-smoker Shortness of breath on exertion Asthma History of pain when walking History of edema Chronic cough Hyperlipemia Hypertension Cancer of kidney Home Medications ?Medication ?Instructions ?Recorded ?Last Taken ?Type metoprolol succinate 25 mg 25 mg PO DAILY 12/27/22 01/10/24 08:00 History tablet,extended release 24 hr montelukast 10 mg tablet 10 mg PO QHS 12/27/22 Unknown History pravastatin 40 mg tablet 40 mg PO QHS 12/27/22 Unknown History diclofenac sodium 1 % topical gel 2 ea topical 4X/DAY PRN pain 07/31/23 Unknown History (scale score 4-6) hydrocortisone 2.5 % topical cream 1 applic topical BID PRN rash 7 12/07/23 Unknown Rx days #30 grams methocarbamol 500 mg tablet 500 mg PO TID PRN Muscle 03/22/25 Unknown Rx pain/spasm #30 tabs oxycodone 5 mg tablet 5 mg PO Q6H PRN pain 3 days #12 03/22/25 Unknown Rx tabs Allergy/AdvReac Type Severity Reaction Status Date / Time Latex, Natural Rubber Allergy Intermediate Rash Verified 03/21/25 22:32 tizanidine Allergy Rash Verified 03/21/25 22:32 Family History Other No pertinent family history Surgical History Hx of left cataract extraction Hx of right cataract extraction Hx of colonoscopy H/O: hysterectomy H/O right nephrectomy Social History Smoking Status: Never smoker alcohol intake: never ROS ROS ED Constitutional Constitutional ED: Denies chills or fever(s) Eyes Eyes: Denies blurry vision or change in vision ENT ENT ED: Denies sore throat Cardiovascular Cardiovascular: Reports other Details: Negative syncope ; Denies chest pain, palpitations or racing heartbeat Respiratory/Chest Respiratory/Chest: Denies cough or dyspnea Gastrointestinal Gastrointestinal: Denies abdominal pain, diarrhea, nausea or vomiting Genitourinary Genitourinary ED: Denies dysuria or hematuria Musculoskeletal Musculoskeletal: Reports other Details: Positive right rib pain ; Denies neck pain Integumentary Denies Abrasions or rash Neurologic Neurologic: Denies headache(s) Hematologic/Lymphatic Hematologic/Lymphatic: Denies easy bleeding or easy bruising EXAM Physical Exam Const Vital Signs: 03/21/25 22:29 03/21/25 22:29 03/22/25 00:55 Temperature 98.2 F Temperature Source Temporal Pulse Rate 110 H 83 Respiratory Rate 18 16 Respiratory Effort Normal Non-Labored Respiratory Depth Normal Respiratory Pattern Normal Blood Pressure 140/90 H 140/86 H Blood Pressure Mean 106 104 Pulse Ox 97 95 Oxygen Delivery Method Room Air Room Air Room Air 03/22/25 01:24 Temperature 97.9 F Temperature Source Pulse Rate 83 Respiratory Rate 16 Respiratory Effort Respiratory Depth Respiratory Pattern Blood Pressure 140/86 H Blood Pressure Mean 104 Pulse Ox 95 Oxygen Delivery Method Positive well nourished and well developed General Appearance ED: well developed; Negative for pallor HEENT HEENT Narrative: Normocephalic atraumatic No signs of depressed or basilar skull fracture Eyes PERRL and EOMs intact bilaterally General Eye ED: Negative for scleral icterus Neck supple Neck Narrative: No bony deformity or step-off of the cervical spine No midline tenderness to palpation Chest Wall Chest Narrative: There is pain with palpation along the right anterior lateral lower ribs regions 9-12 without obvious bony deformity or subcutaneous emphysema Resp normal respiratory effort and clear to auscultation bilaterally Cardio regular rate and regular rhythm GI normal to inspection, nondistended, normoactive bowel sounds, non-tender and non-distended GI Narrative: No voluntary guarding or rigidity or pulsatile mass No peritoneal signs No overlying abrasions or ecchymosis noted Auscultation: normoactive bowel sounds Palpation: soft Back/Spine no CVA tenderness Back/Spine Narrative: No bony deformity or step-off of the thoracic or lumbar spine No midline tenderness to palpation Extremity normal to inspection Extremity Narrative: Pelvis is stable there is no shortening or external rotation of either lower extremity No signs of long bone injury such as bony deformity or joint effusion All compartments are soft and compressible going against compartment syndrome Neuro oriented x3, CN's II-XII intact bilaterally and no sensory deficits noted Sensorium / Orientation: alert Motor Exam: strength 5/5 throughout Psych mental status grossly normal Skin no rashes or lesions noted and no wounds Skin Narrative: No abrasions or ecchymosis noted General Skin Exam: Negative for jaundice or pallor MDM MDM MDM Narrative Medical decision making narrative: Patient arrived to the ER hypertensive but has a past medical history of this and otherwise stable vitals. She reported a mechanical fall on Saturday as well as earlier today. Therefore I felt no need for cardiac or syncope workup. She did not strike her head or have loss of consciousness nor is she on a blood thinner so I had low concern for traumatic skull fracture or traumatic subarachnoid or subdural hemorrhage and felt no need for head CT. She had no signs of long bone injury so I felt no need for plain film x-rays to assess for potential pubic rami or femoral neck fracture. With patient having pain greatest along the right anterior lateral ribs there is concern for rib fracture versus rib contusion versus pneumothorax. Based on her advanced age I did like to perform a noncontrast CT for more detailed imaging. CT scan revealed no pneumothorax or signs of secondary infection but did show age indeterminant fractures along the right 7th, 8th and 9th ribs. This does correlate with the location of her pain on exam as well as the fact that she has had a recent fall. However they are nondisplaced and without pneumothorax or hemothorax I do not feel the need for further intervention or admission. The patient was able to ambulate in the emergency department with a steady gait and with medication provided reported improvement of her pain. Therefore she will be given these medications for home for the next few days and can follow-up with her family doctor for repeat evaluation. However at this time as her pain is controlled she does not have a pneumothorax or signs of other injury and can ambulate she is safe for discharge History & Record Review Discussion w/independent historian: Patient and Family Radiography Diagnostic Testing: Clinical Impression(s) from Imaging Studies Chest CT 03/21/25 23:15 IMPRESSION: Age indeterminate nondisplaced fractures seen along the anterior aspects of the right seventh, eighth and ninth ribs. Interval decrease in size of the previously seen left lower lobe solid pulmonary nodule currenlty measures 3.5 mm in diameter compared to 6 mm in the prior study, optional annual follow-up is recommened as per Fleischner criteria. There is interval decrease in size of the previously seen right paratracheal soft tissue nodule or olivia lesion currently measures 3.1 x 1.7 cm compared to 3.7 x 2.1 cm in the prior study. No acute chest abnormalities detected. Reading Location: [place] [address] Discharge Plan Triage Chief Complaint: Fall ED Provider: Brent Cherry Dx/Rx/DC Orders Clinical Impression: Rib fractures, Hypertension, Hyperlipemia Instructions: ED Rib Fracture Prescriptions: New oxycodone 5 mg tablet 5 mg PO Q6H PRN (Reason: pain) 3 Days Qty: 12 0RF methocarbamol 500 mg tablet 500 mg PO TID PRN (Reason: Muscle pain/spasm) Qty: 30 0RF No Action metoprolol succinate 25 mg tablet extended release 24 hr 25 mg PO DAILY montelukast 10 mg tablet 10 mg PO QHS pravastatin 40 mg tablet 40 mg PO QHS diclofenac sodium 1 % gel 2 ea topical 4X/DAY PRN (Reason: pain (scale score 4-6)) hydrocortisone 2.5 % cream 1 applic topical BID PRN (Reason: rash) 7 Days Qty: 30 0RF Primary Care Provider: Ramiro Santana Referrals: Ramiro Santana MD [Primary Care Provider, Family Practice] Activity Restrictions/Additional Instructions: Your x-ray showed that you have recently broke the right 7th, 8th and 9th ribs and they are in the process of healing. This is the cause of your increased pain on the right side. Take the prescribed medication as directed to help control pain and you may also use [id number] treatment options such as lidocaine patches. Follow-up with your family doctor for repeat evaluation and return to the ER should you have any further concerns Print Language: Latvian Disposition Disposition: Home, Self Care Discharge Date/Time: 03/22/25 01:27
[2025-03-22 01:24] VITALS: BP 140/86; PULSE 83; RESP 16; TEMP 36.6; O2SAT 95
== END 2025-03-22 01:27 | disposition home or self-care (01) ==
PROVIDERS: Emergency Provider Emergency Medicine; PCP Family Medicine; Visit Provider Emergency Medicine
DX: S22.41XA Multiple fractures of ribs, right side, initial encounter for closed fracture (principal); W18.39XA Other fall on same level, initial encounter; Y92.019 Unspecified place in single-family (private) house as the place of occurrence of the external cause; I10 Essential (primary) hypertension; E78.5 Hyperlipidemia, unspecified; Z79.899 Other long term (current) drug therapy
CPT/HCPCS: 71250; 99283